=== PATIENT | male | born 1950 | race Caucasian/White ===

== ENCOUNTER 2020-10-09 01:32 | Emergency (ER) | payer OTHER, MEDICARE, SELFPAY ==
[2020-10-09] VITALS (9 sets, daily range): BP systolic 117–136; BP diastolic 67–86; PULSE 34–73; RESP 7–16; TEMP 36.4–36.8; O2SAT 96–99; BMI 26.5
--- NOTE | ~2020-10-09 | XR_ITS ---
EXAMINATION: XR SHOULDER, RIGHT CLINICAL INFORMATION: Pain status post fall COMPARISON: None TECHNIQUE: Three views of the right shoulder. FINDINGS: There is anterior dislocation of the right humeral head from the glenoid. No acute fracture. The acromioclavicular joint is intact with mild hypertrophic degenerative change. The visualized lungs are clear. Visualized ribs are intact. XR/XR shoulder RT min 2V IMPRESSION: Anterior shoulder dislocation.
--- NOTE | ~2020-10-09 | XR_ITS ---
EXAMINATION: XR SHOULDER, RIGHT CLINICAL INFORMATION: Post reduction COMPARISON: 10/09/2020 TECHNIQUE: Two views of the right shoulder. FINDINGS: There appears to at least still be anterior subluxation of the right humeral head in relation to the glenoid. No fracture seen. The right acromioclavicular joint is aligned appropriately. The visualized lung is clear. XR/XR shoulder RT min 2V IMPRESSION: There appears to be residual anterior subluxation of the humeral head in relation to the glenoid. No fracture.
--- NOTE | 2020-10-09 04:37 | ECG_ITS ---
Test Reason : SEDATION Blood Pressure : / mmHG Vent. Rate : 078 BPM Atrial Rate : 078 BPM P-R Int : 142 ms QRS Dur : 096 ms QT Int : 402 ms P-R-T Axes : 040 -17 027 degrees QTc Int : 458 ms Normal sinus rhythm Normal ECG No previous ECGs available Referred By: Emilie Dai Electronically Signed By:ROXANNE PARIS MD
--- NOTE | 2020-10-09 04:38 | ED_ITS ---
HPI - Fall General Chief Complaint: Fall Stated Complaint: Fall/Shoulder pain Time Seen by Provider: 10/09/20 01:47 Source: patient Mode of arrival: ambulatory Limitations: no limitations History of Present Illness HPI Narrative: Patient comes emergency room complaining of right shoulder pain. Patient states that earlier this evening, patient tripped and fell, landed on his shoulder. Patient denies hitting his head, did not lose consciousness, patient is not on blood thinners. Patient states that other than the right shoulder, he has no other pain. Related Data Previous Rx's Medication Instructions Recorded ibuprofen 600 mg PO Q8H PRN #14 tab 10/09/20 Allergies Allergy/AdvReac Type Severity Reaction Status Date / Time Unable to Assess Allergy Unverified 10/09/20 01:47 [facility] Past Medical History Medical History (Updated 10/09/20 @ 08:19 by Migel Vogt) High cholesterol Hypertension Surgical History (Updated 10/09/20 @ 01:38 by Caroline Koehler) Knee joint replacement status Social History Social History Advance Directives: No Advance Directives Information Provided: No Physical Exam Vital Signs: Vital Signs: Last Vital Signs Temp 98.1 F 10/09/20 06:40 Pulse 34 L 10/09/20 06:40 Resp 7 L 10/09/20 06:40 BP 136/74 10/09/20 06:40 Pulse Ox 98 10/09/20 02:45 Oxygen Flow Rate 98 10/09/20 06:40 Body Mass Index 26.5 Course Course Course Narrative: Patient consented to conscious sedation and right shoulder reduction. For preprocedural labs, it was noted that his sodium is 125. Patient is asymptomatic. Patient is on hydrochlorothiazide. I discussed the patient with our hospitalist, at this time we will go ahead and admit him, patient is getting fluids at this time. I discussed with the hospitalist that on x-rays, patient seems to have residual anterior subluxation of the humeral head. They will go ahead and consult Orthop edics. Patient is now fully awake. Patient states that he is asymptomatic, no shoulder pain. Patient states that he will follow up with his primary care physician in a hole or the hyponatremia. Patient does not want to stay for further evaluation and treatment. I discussed with the patient he has residual subluxation of the humeral head, he will need close follow-up with Orthopedics. [facility] - Fall Lab Data Result diagrams: 10/09/20 04:53 10/09/20 04:53 Labs: Lab Results 10/09/20 10/09/20 10/09/20 Range/Units 04:53 04:53 04:53 WBC 9.8 (4.8-10.8) X10*3/uL RBC 4.25 L (4.60-5.80) X10*6/uL Hgb 12.8 L (14.0-18.0) g/dl Hct 36.3 L (42-52) % MCV 85.4 (80-98) fL MCH 30.1 (27.0-33.0) pg MCHC 35.3 (31.0-36.0) g/dl RDW 12.7 (11.0-16.0) % Plt Count 171 (160-400) X10*3/uL MPV 8.7 L (9.4-12.4) fL Immature Gran % (Auto) 0.5 H (0.0-0.4) % Neut % (Auto) 74.3 H (45-73) % Lymph % (Auto) 15.0 L (20-40) % Elbert % (Auto) 8.3 (2-11) % Eos % (Auto) 1.5 (0-4) % Baso % (Auto) 0.4 (0-2) % Lymph # (Auto) 1.5 (1.2-4.9) X10*3/uL [place] # (Auto) 0.8 (0.1-1.2) X10*3/uL Eos # (Auto) 0.2 (0.0-0.4) X10*3/uL Baso # (Auto) 0.0 (0.0-0.2) X10*3/uL Abs Immat Gran (auto) 0.05 H (0.00-0.03) X10*3/uL Absolute Neuts (auto) 7.3 (2.0-8.3) X10*3/uL Absolute Nucleated RBC 0.000 (0.0-0.012) X10*3/uL Nucleated RBC % (auto) 0.0 (0.0-0.2) /100WBC Hold Purple Top SEE NOTE Hold Blue Top SEE NOTE Sodium (135-145) mmol/L Potassium (3.3-5.1) mmol/L Chloride (96-108) mmol/L Carbon Dioxide (22-29) mmol/L Anion Gap (12-20) BUN (9-16) mg/dL Creatinine (0.5-1.4) mg/dL Estim Creat Clear Calc Estimated GFR Random Glucose (60-115) mg/dL Calcium (8.4-10.2) mg/dL Total Bilirubin (0.0-1.0) mg/dL AST (5-37) U/L ALT (0-40) U/L Alkaline Phosphatase (39-117) U/L Total Protein (6.5-8.0) g/dL Albumin (3.5-5.0) g/dL 10/09/20 10/09/20 10/09/20 Range/Units 04:53 04:53 04:53 WBC Cancelled (4.8-10.8) X10*3/uL RBC Cancelled (4.60-5.80) X10*6/uL Hgb Cancelled (14.0-18.0) g/dl Hct Cancelled (42-52) % MCV Cancelled (80-98) fL MCH Cancelled (27.0-33.0) pg MCHC Cancelled (31.0-36.0) g/dl RDW Cancelled (11.0-16.0) % Plt Count Cancelled (160-400) X10*3/uL MPV Cancelled (9.4-12.4) fL Immature Gran % (Auto) Cancelled (0.0-0.4) % Neut % (Auto) Cancelled (45-73) % Lymph % (Auto) Cancelled (20-40) % [place]bert % (Auto) Cancelled (2-11) % Eos % (Auto) Cancelled (0-4) % Baso % (Auto) Cancelled (0-2) % Lymph # (Auto) Cancelled (1.2-4.9) X10*3/uL [place] # (Auto) Cancelled (0.1-1.2) X10*3/uL Eos # (Auto) Cancelled (0.0-0.4) X10*3/uL Baso # (Auto) Cancelled (0.0-0.2) X10*3/uL Abs Immat Gran (auto) Cancelled (0.00-0.03) X10*3/uL Absolute Neuts (auto) Cancelled (2.0-8.3) X10*3/uL Absolute Nucleated RBC Cancelled (0.0-0.012) X10*3/uL Nucleated RBC % (auto) Cancelled (0.0-0.2) /100WBC Hold Purple Top Hold Blue Top Sodium 125 L Cancelled (135-145) mmol/L Potassium 3.8 Cancelled (3.3-5.1) mmol/L Chloride 87 L Cancelled (96-108) mmol/L Carbon Dioxide 24 Cancelled (22-29) mmol/L Anion Gap 18 Cancelled (12-20) BUN 10 Cancelled (9-16) mg/dL Creatinine 0.82 Cancelled (0.5-1.4) mg/dL Estim Creat Clear Calc 85.3 Cancelled Estimated GFR > 60 Cancelled Random Glucose 103 Cancelled (60-115) mg/dL Calcium 8.9 Cancelled (8.4-10.2) mg/dL Total Bilirubin 0.5 (0.0-1.0) mg/dL AST 42 H (5-37) U/L ALT 26 (0-40) U/L Alkaline Phosphatase 55 (39-117) U/L Total Protein 7.0 (6.5-8.0) g/dL Albumin 4.5 (3.5-5.0) g/dL Imaging Data Right shoulder x-ray: Radiologist's impression: There is anterior dislocation of the right humeral head from the glenoid. No acute fracture. The acromioclavicular joint is intact with mild hypertrophic degenerative change. The visualized lungs are clear. Visualized ribs are intact. XR/XR shoulder RT min 2V IMPRESSION: Anterior shoulder dislocation. Post reduction x-ray: Radiologist's impression: There appears to at least still be anterior subluxation of the right humeral head in relation to the glenoid. No fracture seen. The right acromioclavicular joint is aligned appropriately. The visualized lung is clear. XR/XR shoulder RT min 2V IMPRESSION: There appears to be residual anterior subluxation of the humeral head in relation to the glenoid. No fracture. ECG Data Attestation: I personally reviewed and interpreted this ECG as follows: (Heart rate 78, no ST segment depression or elevation, no T-wave inversion, QTC 458, sinus rhythm) Discharge Plan Discharge Clinical Impression: Acute hyponatremia Anterior dislocation of right shoulder Qualifiers: Encounter type: initial encounter Qualified Code(s): S43.014A - Anterior dislocation of right humerus, initial encounter Patient Disposition: Left Against Medical Advice Instructions: Shoulder Dislocation (ED), Hyponatremia (ED) Additional Instructions: You are leaving against medical advice. You have residual subluxation of your right shoulder. Please call Orthopedics to schedule an appointment. If you have any pain or any further symptoms, please return to the emergency room. Also, your sodium is low. Please have close follow-up with her primary care physician. Prescriptions: New ibuprofen 600 mg tablet 600 mg PO Q8H PRN (Reason: pain) Qty: 14 RF: 0 Referrals: Kevyn Gaming MD [Physician] - 2 days Interventions: ED Discharge Assessment Last Done: 10/09/20 08:18
[2020-10-09 04:58] LABS: MANUAL DIFF FLAG NO
[2020-10-09] MEDS: Acetaminophen 325 MG TABLET 975 MG PO (04:58)
[2020-10-09 05:00] LABS: Basophils Percent Auto 0.4 % (0-2); Eosinophils Absolute Auto 0.2 X10*3/uL (0.0-0.4); Eosinophils Percent Auto 1.5 % (0-4); Hematocrit 36.3 % (42-52); Hemoglobin 12.8 g/dl (14.0-18.0); Imm Gran Abs Auto 0.05 X10*3/uL (0.00-0.03); Imm Gran Pct Auto 0.5 % (0.0-0.4); Lymphocytes Absolute Auto 1.5 X10*3/uL (1.2-4.9); Mean Corpuscular HGB Conc 35.3 g/dl (31.0-36.0); Mean Corpuscular Hemoglobin 30.1 pg (27.0-33.0); Mean Corpuscular Volume 85.4 fL (80-98); Mean Platelet Volume 8.7 fL (9.4-12.4); Monocytes Absolute Auto 0.8 X10*3/uL (0.1-1.2); Monocytes Percent Auto 8.3 % (2-11); Neutrophils Absolute Auto 7.3 X10*3/uL (2.0-8.3); Neutrophils Percent Auto 74.3 % (45-73); Platelet Count 171 X10*3/uL (160-400); Red Blood Count 4.25 X10*6/uL (4.60-5.80); Red Cell Distribution Width 12.7 % (11.0-16.0); White Blood Count 9.8 X10*3/uL (4.8-10.8)
[2020-10-09] MEDS: Etomidate 20 MG/10 ML VIAL IVPUSH (05:06)
[2020-10-09 05:39] LABS: Alanine Aminotransferase 26 U/L (0-40); Albumin Level 4.5 g/dL (3.5-5.0); Alkaline Phosphatase 55 U/L (39-117); Anion Gap 18 (12-20); Aspartate Amino Transferase 42 U/L (5-37); Bilirubin Total 0.5 mg/dL (0.0-1.0); Blood Urea Nitrogen 10 mg/dL (9-16); Calcium 8.9 mg/dL (8.4-10.2); Carbon Dioxide 24 mmol/L (22-29); Chloride 87 mmol/L (96-108); Creatinine Clr Calc Pharmacy 85.3; Estimated Glomerular Filt Rate > 60; Glucose Random 103 mg/dL (60-115); Potassium 3.8 mmol/L (3.3-5.1); Sodium 125 mmol/L (135-145)
[2020-10-09] MEDS: Morphine Sulfate 2 MG/ML CARTRIDGE IVPUSH (06:25)
[2020-10-09] MEDS: 0.9 % Sodium Chloride 1,000 ML 999 ML IVCONT (06:35)
--- NOTE | 2020-10-09 06:37 | PC.NURSE ---
pT A&o, NO SOB OR CHEST PAIN. TOLERATED SEDATION WELL WITH NO COMPLICATIONS. RIGHT ARM IN SLING. pT SODIUM IN LOW, PLAN IS FOR PATIENT TO BE ADMITTED. PT WOULD LIKE TO FOLLOW WITH PCP. PROVIDER IS AWARE.
== END 2020-10-13 07:58 | disposition left against medical advice (07) ==
PROVIDERS: Emergency Provider Emergency Medicine; PCP Internal Medicine
DX: S43.014A Anterior dislocation of right humerus, initial encounter (principal); E87.1 Hypo-osmolality and hyponatremia; M79.601 Pain in right arm; Y93.9 Activity, unspecified; W01.0XXA Fall on same level from slipping, tripping and stumbling without subsequent striking against object, initial encounter; Y92.9 Unspecified place or not applicable; Y99.9 Unspecified external cause status; I10 Essential (primary) hypertension; Z20.822 Contact with and (suspected) exposure to COVID-19; Z79.899 Other long term (current) drug therapy
CPT/HCPCS: 73030; 80053; 85025; 93005; 96365; 96375; 99284; J2270

== ENCOUNTER 2020-10-21 12:34 | Outpatient (REF) | payer MEDICARE, SELFPAY ==
--- NOTE | ~2020-10-21 | XR_ITS ---
EXAMINATION: XR SHOULDER, RIGHT CLINICAL INFORMATION: History of recent shoulder dislocation post reduction COMPARISON: Previous x-ray 10/09/2020 TECHNIQUE: 3 views of the right shoulder. FINDINGS: The right humeral head may be slightly subluxed anteriorly with respect to the glenoid. Bone alignment is otherwise normal. No fracture or dislocation is seen. There is mild arthritis at the acromioclavicular joint. Soft tissues are unremarkable. XR/XR shoulder RT min 2V IMPRESSION: Mild anterior subluxation of the humeral head with respect to the glenoid. No fracture seen.
== END 2020-10-21 12:35 | disposition home or self-care (01) ==
LOC: HO.HOSX 12:34
PROVIDERS: Visit Provider Physician Assistant
DX: S43.001D Unspecified subluxation of right shoulder joint, subsequent encounter (principal)
CPT/HCPCS: 73030; 99202

== ENCOUNTER 2020-12-24 07:00 | Outpatient (RCR) | payer MEDICARE, SELFPAY ==
--- NOTE | 2020-11-17 08:53 | MHC.PT.EP ---
[facility] [place] Office [place] Office [place] Office [address] Ariana Hanley 140 [facility] [phone] F: [phone] F: [phone] F: [phone] F: [phone] Physical Therapy Plan of Care Date of Evaluation: Date of Surgery: none Diagnosis: unspecified dislocation of the right shoulder. Assessment: The patient arrived reporting right shoulder anterior dislocation on . As expected he had significantly decreased right shoulder ROM, strength as well as some minimal weakness of forearm and wrist likely due to disuse. The patient is a good candidate to restore functional reaching ability, and functional independence to return to PLOF. Frequency and Duration: The patient will be seen 2x/week x 4 weeks Short Term Goals: 1. Pt to be able to use his arm for getting dressed without pain limitation. 2. Pt to demonstrate understanding of HEP to improve compliance and carryover Fpc Goals: 1. Pt to be able to return to all functional reaching ability to return to PLOF. 2. Pt to have restored functional strength in his UE. Treatment Plan: Modalities to reduce pain, spasms and effusion. Manual therapy to restore motion and function. Therapeutic exercise to improve strength and flexibility. Neuromuscular re-education for posture and balance. Therapeutic activities to return to functional activities of daily living. Electronically signed by: Rhea Carl PT DPT Please sign and return to therapist. Thank you for your referral.
== END 2020-12-29 08:00 | disposition home or self-care (01) ==
LOC: HO.PT 07:00
PROVIDERS: PCP Internal Medicine; Visit Provider Physician Assistant
DX: S43.001A Unspecified subluxation of right shoulder joint, initial encounter (principal); S43.004A Unspecified dislocation of right shoulder joint, initial encounter; M25.511 Pain in right shoulder
CPT/HCPCS: 97110; 97112; 97162

== ENCOUNTER → 2021-02-11 09:19 | Outpatient (BNVA) | payer SELFPAY | PROVIDERS: PCP Internal Medicine; Visit Provider Internal Medicine | DX: Z02.79 Encounter for issue of other medical certificate (principal) ==

== ENCOUNTER 2021-05-31 10:28 | Outpatient (REF) | payer MEDICARE, SELFPAY ==
[2021-05-31 16:10] LABS: COVID-19 Test Negative (Negative)
== END 2021-05-31 10:29 | disposition home or self-care (01) ==
LOC: HO.LAB 10:28
PROVIDERS: Visit Provider Internal Medicine
DX: Z20.822 Contact with and (suspected) exposure to COVID-19 (principal)
CPT/HCPCS: 36415; 87635; C9803

== ENCOUNTER → 2022-02-02 09:01 | Outpatient (BNVA) | payer SELFPAY | PROVIDERS: PCP Internal Medicine; Visit Provider Internal Medicine | DX: Z02.79 Encounter for issue of other medical certificate (principal) ==

== ENCOUNTER 2022-10-09 00:33 | Emergency (ER) | payer MEDICARE, SELFPAY ==
--- NOTE | ~2022-10-09 | CT_ITS ---
EXAMINATION: CT ABDOMEN AND PELVIS WITHOUT CONTRAST CLINICAL INFORMATION: Left flank/lumbar pain. Atraumatic. COMPARISON: None available. TECHNIQUE: Multidetector volumetric imaging was performed from the superior aspect of the liver through the pubic symphysis. Sagittal and coronal reformatted images were obtained on the technologist's workstation. This CT examination was performed using dose optimization techniques as appropriate, variously including the following: *Automated exposure control *Adjustment of mA and/or kV according to patient size (this includes techniques or standardized protocols for targeted exams where dose is matched to indication/reason for exam; i.e. extremities or head) *Use of iterative reconstruction technique DLP: 515 mGy-cm FINDINGS: LUNG BASES: The lung bases are clear. Coronary artery calcifications. LIVER, GALLBLADDER, AND BILIARY TREE: The liver is normal in size, shape, and attenuation. No focal hepatic lesion or biliary ductal dilatation is present. The gallbladder is contracted with no evidence of radiopaque gallstones, gallbladder wall thickening, or obvious pericholecystic inflammatory changes. PANCREAS: Unremarkable. SPLEEN: Unremarkable. ADRENAL GLANDS: Unremarkable. KIDNEYS AND URETERS: The kidneys are normal in size, shape, and attenuation. No hydronephrosis, hydroureter, or calculi seen. Symmetric perinephric stranding. BLADDER: Normally distended without wall thickening along the apex. No focal mass identified. GASTROINTESTINAL TRACT: Distended stomach without wall thickening. Normal caliber small bowel. No obstruction. Colonic diverticulosis is present. No diverticulitis. Normal appendix. ABDOMINAL WALL: Fat-containing umbilical hernia. LYMPH NODES: Normal. VASCULAR: Normal caliber aorta with moderate atherosclerotic calcification. PELVIC VISCERA: The prostate and seminal vesicles are unremarkable. OSSEOUS STRUCTURES: No acute or suspicious osseous abnormality. Degenerative changes throughout the spine. CT/CT abdomen pelvis wo IV con IMPRESSION: No acute findings in the abdomen or pelvis. No hydronephrosis or nephrolithiasis. No inflammatory changes. Fleischner guidelines were followed.
--- NOTE | ~2022-10-09 | XR_ITS ---
EXAMINATION: XR CHEST CLINICAL INFORMATION: Back pain COMPARISON: None available. TECHNIQUE: 2 views of the chest were obtained. FINDINGS: The lungs are well expanded. There is no focal consolidation, edema, or effusion. No pneumothorax. The cardiomediastinal silhouette is within normal limits of size with a calcified aorta. No acute osseous abnormality. XR/XR chest 2V IMPRESSION: Clear lungs.
[2022-10-09 00:39] VITALS: BP 167/77; PULSE 92; O2SAT 99
[2022-10-09 00:40] VITALS: BP 137/79; PULSE 89; RESP 20; TEMP 36.8; O2SAT 96; BMI 26.5
[2022-10-09 00:59] VITALS: BP 127/74; PULSE 81; RESP 18; TEMP 36.8; O2SAT 98
[2022-10-09 01:02] LABS: Basophils Absolute Auto 0.1 X10*3/uL (0.0-0.2); Basophils Percent Auto 0.6 % (0-2); Eosinophils Percent Auto 5.6 % (0-4); Hematocrit 35.8 % (42.0-52.0); Hemoglobin 12.6 g/dl (14.0-18.0); Imm Gran Abs Auto 0.13 X10*3/uL (0.00-0.03); Imm Gran Pct Auto 0.8 % (0.0-0.4); Lymphocytes Absolute Auto 2.1 X10*3/uL (1.2-4.9); Lymphocytes Percent Auto 12.6 % (20-40); MANUAL DIFF FLAG NO; Mean Corpuscular HGB Conc 35.2 g/dl (31.0-36.0); Mean Corpuscular Hemoglobin 30.2 pg (27.0-33.0); Mean Corpuscular Volume 85.9 fL (80.0-98.0); Mean Platelet Volume 8.9 fL (9.4-12.4); Monocytes Absolute Auto 1.1 X10*3/uL (0.1-1.2); Monocytes Percent Auto 6.4 % (2-11); Neutrophils Absolute Auto 12.5 x10*3/uL (2.0-8.3); Platelet Count 231 X10*3/uL (160-400); Red Blood Count 4.17 X10*6/uL (4.60-5.80); Red Cell Distribution Width 12.7 % (11.0-16.0); White Blood Count 16.9 X10*3/uL (4.8-10.8)
--- NOTE | 2022-10-09 01:14 | ED.BACK ---
HPI - Back Pain/Injury General Chief Complaint: Back Pain/Injury Stated Complaint: back pain Time Seen by Provider: 10/09/22 01:12 Source: patient Mode of arrival: ambulatory Limitations: no limitations History of Present Illness HPI Narrative: Patient alcoholic with no back problems or pancreatitis or kidney stone about 12 hours ago during noontime while watching patient noticed sudden onset of pain in upper lumbar area radiation to the both sides no trauma no injury no urinary complaint no history of kidney stone no abdominal pain no fever or chills Related Data Home Medications Medication Instructions Recorded Confirmed amlodipine 2.5 mg tablet 10 mg PO DAILY 10/21/20 10/09/22 isosorbide mononitrate 10 mg tablet 10 mg PO BID 10/21/20 prednisolone 5 mg tablet 10 mg PO DAILY 10/21/20 atorvastatin 40 mg tablet 40 mg PO DAILY 06/03/22 10/09/22 omeprazole 20 mg capsule,delayed 20 mg PO DAILY 06/03/22 10/09/22 release bisoprolol 10 1 tab PO DAILY 06/20/22 10/09/22 mg-hydrochlorothiazide 6.25 mg tablet terbinafine HCl 250 mg PO DAILY 10/09/22 10/09/22 Previous Rx's Medication Instructions Recorded ibuprofen 600 mg tablet 600 mg PO Q8H PRN pain #14 tabs 10/09/20 prednisone 20 mg tablet 60 mg PO DAILY #9 tabs 06/03/22 triamcinolone acetonide 0.025 % 1 appl topical BID #15 grams 06/20/22 topical cream Allergies Allergy/AdvReac Type Severity Reaction Status Date / Time Penicillins AdvReac swollen Verified 06/20/22 14:40 Review of Systems Review of Systems: Yes all other systems are reviewed and are negative PMFSH Past Medical History Medical History High cholesterol Hypertension Surgical History Knee joint replacement status Social History Social History Alcohol intake: current Alcohol intake frequency: 3 or more drinks per day Alcohol type: beer Smoked in Last 30 Days: No Use of substances other than those prescribed or required for medical reasons: No Advance Directives: No Advance Directives Information Provided: No 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 Oriented X3. No acute distress. Eyes: PERRLA, No Nystagmus ENT: Pharynx normal. Oral Mucosa moist Neck: Normal inspection. Neck supple. CVS: Normal heart rate and rhythm. Pulses normal. Respiratory: No respiratory distress. Equal air entry bilateral, no wheezing/rales/rhonchi Abdomen: Soft and nontender. Bowel sounds are present, no mass palpable, diffuse tenderness L1-L2 area Skin: Skin warm and dry. Normal skin color. Normal skin turgor. Extremities: No lower extremity edema. No calf tenderness Neuro: Oriented X 3. No motor deficit. No sensory deficit.No cerebellar signs , cranial nerves II-XII intact Medications Administered Discontinued Medications Generic Name Dose Route Start Last Admin Trade Name Freq PRN Reason Stop Dose Admin Sodium Chloride 1,000 mls @ 999 mls/hr 10/09/22 01:18 10/09/22 01:34 Ns IV 10/09/22 02:18 999 mls/hr .Q1H1M ONE Administration Morphine Sulfate 4 mg 10/09/22 01:18 10/09/22 01:34 Morphine Sulfate 4 Mg/Ml Cartridge IVPUSH 10/09/22 01:19 4 mg ONCE ONE Administration Protocol Ondansetron HCl 4 mg 10/09/22 01:18 10/09/22 01:34 Ondansetron Hcl 4 Mg/2 Ml Vial IVPUSH 10/09/22 01:19 4 mg ONCE ONE Administration Medical Decision Making Medical Decision Making [facility] Narrative: Patient with psoriasis with low back CT scan negative for any compression fracture acute abdominal labs are stable likely has musculoskeletal pain patient feeling better after morphine will ambulate the patient Lab Data [facility] Lab Attestation statement: I reviewed the patient's lab results. 10/09/22 00:51 10/09/22 00:51 Labs: Lab Results 10/09/22 10/09/22 10/09/22 Range/Units 00:51 00:51 01:47 WBC 16.9 H (4.8-10.8) X10*3/uL RBC 4.17 L (4.60-5.80) X10*6/uL Hgb 12.6 L (14.0-18.0) g/dl Hct 35.8 L (42.0-52.0) % MCV 85.9 (80.0-98.0) fL MCH 30.2 (27.0-33.0) pg MCHC 35.2 (31.0-36.0) g/dl RDW 12.7 (11.0-16.0) % Plt Count 231 (160-400) X10*3/uL MPV 8.9 L (9.4-12.4) fL Immature Gran % (Auto) 0.8 H (0.0-0.4) % Neut % (Auto) 74.0 H (45-73) % Lymph % (Auto) 12.6 L (20-40) % [place] % (Auto) 6.4 (2-11) % Eos % (Auto) 5.6 H (0-4) % Baso % (Auto) 0.6 (0-2) % Lymph # (Auto) 2.1 (1.2-4.9) X10*3/uL [place] # (Auto) 1.1 (0.1-1.2) X10*3/uL Eos # (Auto) 1.0 H (0.0-0.4) X10*3/uL Baso # (Auto) 0.1 (0.0-0.2) X10*3/uL Abs Immat Gran (auto) 0.13 H (0.00-0.03) X10*3/uL Absolute Neuts (auto) 12.5 H (2.0-8.3) x10*3/uL Absolute Nucleated RBC 0.000 (0.0-0.012) X10*3/uL Nucleated RBC % (auto) 0.0 (0.0-0.2) /100WBC Sodium 131 L (135-145) mmol/L Potassium 4.0 (3.3-5.1) mmol/L Chloride 94 L (96-108) mmol/L Carbon Dioxide 26 (22-29) mmol/L Anion Gap 15 (12-20) BUN 13 (9-16) mg/dL Creatinine 0.84 (0.5-1.4) mg/dL Estim Creat Clear Calc 80.8 Estimated GFR > 60 Random Glucose 101 (60-115) mg/dL Calcium 9.2 (8.4-10.2) mg/dL Total Bilirubin 0.3 (0.0-1.0) mg/dL AST 26 (5-37) U/L ALT 20 (0-40) U/L Alkaline Phosphatase 95 (39-117) U/L Total Protein 7.1 (6.5-8.0) g/dL Albumin 3.9 (3.5-5.0) g/dL Lipase 37 (8-78) U/L Urine Color Yellow Urine Appearance Clear Urine pH 6.5 (5.0-9.0) Ur Specific [place] 1.015 (1.005-1.025) Urine Protein Negative (Neg-Trace) mg/dL Urine Glucose (UA) Negative (Negative) mg/dL Urine Ketones Trace (Negative) mg/dL Urine Blood Negative (Negative) Urine Nitrite Negative (Negative) Ur Leukocyte Esterase Negative (Negative) Radiology Impression Discussion of test interpretation with radiology: I have reviewed the radiologist's reading. Radiologist Impression: CT/CT abdomen pelvis wo IV con IMPRESSION: No acute findings in the abdomen or pelvis. No hydronephrosis or nephrolithiasis. No inflammatory changes. ? Fleischner guidelines were followed. Discharge Plan Discharge Clinical Impression: Strain of lumbar region Prescriptions: No Action ibuprofen 600 mg tablet 600 mg PO Q8H PRN (Reason: pain) Qty: 14 0RF terbinafine HCl 250 mg PO DAILY omeprazole 20 mg capsule,delayed release(DR/EC) 20 mg PO DAILY atorvastatin 40 mg tablet 40 mg PO DAILY prednisone 20 mg tablet 60 mg PO DAILY Qty: 9 0RF bisoprolol-hydrochlorothiazide 10-6.25 mg tablet 1 tab PO DAILY triamcinolone acetonide 0.025 % cream 1 appl topical BID Qty: 15 1RF amlodipine 2.5 mg tablet 10 mg PO DAILY prednisolone 5 mg tablet 10 mg PO DAILY isosorbide mononitrate 10 mg tablet 10 mg PO BID Rx Instructions: give doses 7 hrs apart
[2022-10-09 01:15] LABS: Alanine Aminotransferase 20 U/L (0-40); Albumin Level 3.9 g/dL (3.5-5.0); Alkaline Phosphatase 95 U/L (39-117); Anion Gap 15 (12-20); Aspartate Amino Transferase 26 U/L (5-37); Bilirubin Total 0.3 mg/dL (0.0-1.0); Blood Urea Nitrogen 13 mg/dL (9-16); Calcium 9.2 mg/dL (8.4-10.2); Carbon Dioxide 26 mmol/L (22-29); Chloride 94 mmol/L (96-108); Creatinine Clr Calc Pharmacy 80.8; Estimated Glomerular Filt Rate > 60; Glucose Random 101 mg/dL (60-115); Sodium 131 mmol/L (135-145); Total Protein 7.1 g/dL (6.5-8.0)
[2022-10-09 01:31] LABS: Lipase 37 U/L (8-78)
[2022-10-09] MEDS: 0.9 % Sodium Chloride 1,000 ML 999 ML IV (01:34)
[2022-10-09] MEDS: Morphine Sulfate 4 MG/ML CARTRIDGE IVPUSH (01:34)
[2022-10-09] MEDS: ondansetron HCL 4 MG/2 ML VIAL IVPUSH (01:34)
[2022-10-09 01:54] LABS: Appearance Urine Clear; Color Urine Yellow; Glucose Urine UA Negative (Negative); Leukocyte Esterase Urine Negative (Negative); Nitrite Urine Negative (Negative); PH 6.5 (5.0-9.0); Specific Gravity - Urine 1.015 (1.005-1.025); Urine Blood Negative (Negative); Urine Ketones Trace mg/dL (Negative); Urine Protein Negative (Neg-Trace)
[2022-10-09] MEDS: Ketorolac Tromethamine 30 MG/ML VIAL IVPUSH (02:40)
--- NOTE | 2022-10-09 03:00 | PC.NURSE ---
Patient alert and oriented X3. at bedside. Reports sudden onset of back pain while watching tv. No recent trauma or injury. Patient reports pain is 10/10. Medication administered as per MAR
[2022-10-09] MEDS: dexAMETHasone sod phosphate 10 MG/ML VIAL IVPUSH (03:28)
[2022-10-09 04:11] VITALS: BP 140/71; PULSE 91; RESP 17; TEMP 36.8; O2SAT 95
[2022-10-09 04:28] LABS: Magnesium 1.3 mg/dL (1.6-2.6)
[2022-10-09] MEDS: Magnesium Sulfate/H2O 2 GM/50 ML PIGGYBACK IV (04:36)
[2022-10-09 06:17] VITALS: BP 112/73; PULSE 88; RESP 17; TEMP 36.8; O2SAT 95
== END 2022-10-09 06:54 | disposition home or self-care (01) ==
PROVIDERS: Emergency Provider Internal Medicine; PCP Internal Medicine
DX: M54.50 Low back pain, unspecified (principal); R07.89 Other chest pain; R10.9 Unspecified abdominal pain; Z79.899 Other long term (current) drug therapy
CPT/HCPCS: 36415; 71046; 74176; 80053; 81003; 83690; 83735; 85025; 96361; 96365; 96375; 99284; 99285; J1100; J1885; J2270; J2405; J3475

== ENCOUNTER 2023-05-24 08:50 | Outpatient (AMB) | payer MEDICARE, SELFPAY ==
--- NOTE | 2023-05-24 09:01 | A.SPINEOV_ITS ---
Intake Intake Visit Reasons: low back pain Intake Note: Mr. Scott is here today c/o low back pain. MRI done @ [facility]/brought disc. 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 He reports that he awoke the morning of October 09 with significant middle and low back pain and called ambulance to bring him to the emergency department here at [facility]. He had a CT scan of the abdomen and pelvis completed which was generally unremarkable at the time. 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 He reports being on antibiotics for an extended period of time, and Infectious Disease at [facility] told him that in March that he is cleared from his osteomyelitis infection. He now follows up with them once per month for blood work/follow-up. He reports that his mid-back pain has largely resolved since his infection cleared, but he continues to suffer from daily pain in his low back. When describing his low-back pain he points near the waistline and runs both his hands across the lateral sides of his low back. He reports no radiation of symptoms. He reports no numbness/tingling/weakness. He does report increase of pain in his low back with spine extension and feels that leaning over and holding on to something helps alleviate his symptoms. He endorses significant difficulty ambulating for extended periods of time, and reports that he has stopped going to the grocery store/retail stores altogether. He needs to sit down and rest after walking for prolonged periods of time in order to continue. He states he takes 1 oxycodone per night before bed to help tolerate the pain. He also takes Motrin daily for the pain. He attempted physical therapy and technical healthcare consultant recently, and states that these both only exacerbated his pain and made him feel worse. PMH: High blood pressure, hyperlipidemia, GERD, low back pain, plaque psoriasis, Hx osteomyelitis. Social hx: Patient does not smoke, reports drinking 3-4 beers per day. Medications: Oxycodone, Motrin, amlodipine, atorvastatin, HCTZ, omeprazole. He also reports getting infusions for plaque psoriasis monthly but is unsure what the medication is. Allergies: Penicillin. Physical exam: The patient has 5/5 strength in his upper and lower extremities. He has a notable lump midway down the thoracic spine which is non-tender to palpation. He elicits no pain to direct palpation of the rest of his spine. Sensation is grossly intact. Reflexes are diminished (1+) in his bilateral upper and lower extremities. He does have 1 beat of notable clonus bilaterally. No Sydnie's. Imaging review: MRI of the thoracic spine completed in March of this year shows significant collapse of the vertebral body of T9 with hyperintensity on STIR segment at T9/T10. Radiologist read reports that this is stable/similar to previous imaging. When compared to CT scan from the emergency department in October it seems as though there has been significant collapse of the T9 vertebral body which can just barely be seen at the top of the CT abdomen / pelvis. Impression: Luis Angel is a pleasant 73-year-old male who comes in today as a self- referral for evaluation of low back pain since October of this year. He reports that he also had mid-back pain in October which has since resolved after treatment in clearance from osteomyelitis. He continues to be followed by [facility] for osteomyelitis who test his blood work monthly. He reports no constitutional symptoms including no fever, night sweats, shaking, chills, or significant pain to the extent that he felt back in October when he had osteomyelitis. The pain he describes today sounds more like a chronic / steady pain that he deals with on a daily basis. His history / physical and story are most consistent with spinal stenosis of the lumbar spine. He has tried physical therapy and technical healthcare consultant which only exacerbated his low back pain. I would like to see if there is an area that could be a target for either cortisone injections or lumbar decompression. Additionally, although I have very low suspicion at this time, it would be good to have MRI imaging of his lumbar spine to rule out any other pathologies given his recent history. We will order him an MRI to evaluate for both of these, and will follow up with him after. The total time spent with this visit with this patient was 45 minutes reviewing history, physical exam, MRI imaging review, and implementation of treatment plan or further diagnostic testing. Collin Johnson MD,PhD [facility] Orders: Orders MR lumbar spine wo con Today M54.50 - Low back pain, unspecified Coding Level of Care Code New Pt Level 4 (36397) Diagnoses Lumbago M54.50
== END 2023-05-24 10:57 | disposition home or self-care (01) ==
PROVIDERS: PCP Internal Medicine; Visit Provider Physician Assistant
DX: M54.50 Low back pain, unspecified (principal)
CPT/HCPCS: 99204

== ENCOUNTER → 2023-05-24 08:50 | Outpatient (BNVA) | payer MEDICARE, SELFPAY | PROVIDERS: PCP Internal Medicine; Visit Provider Physician Assistant | DX: M54.50 Low back pain, unspecified (principal) | CPT/HCPCS: 99202 ==

== ENCOUNTER 2023-05-28 12:14 | Emergency (ER) | payer MEDICARE, SELFPAY ==
--- NOTE | ~2023-05-28 | CT_ITS ---
EXAMINATION: CT ABDOMEN AND PELVIS WITH CONTRAST CLINICAL INFORMATION: Left-sided 10th rib fracture COMPARISON: None available. TECHNIQUE: Multidetector volumetric images were obtained from the superior aspect of the liver through the pubic symphysis following administration 85 mL of Omnipaque 350 intravenous contrast. Sagittal and coronal reformatted images were obtained on the technologist's workstation. Oral contrast: No This CT examination was performed using dose optimization techniques as appropriate, variously including the following: *Automated exposure control *Adjustment of mA and/or kV according to patient size (this includes techniques or standardized protocols for targeted exams where dose is matched to indication/reason for exam; i.e. extremities or head) *Use of iterative reconstruction technique DLP: 370 mGy-cm FINDINGS: LUNG BASES: The visualized lung bases are unremarkable. There are nondisplaced fractures involving the eighth anterolateral rib and and the left 12th posterior rib. Some mild basilar atelectasis is present. A tiny left pleural effusion is present. LIVER, GALLBLADDER, AND BILIARY TREE: The liver is normal in size and shape but with decreased attenuation suggesting hepatic steatosis with focal fatty sparing around the gallbladder. There is some tiny barely perceptible hepatic hypodensities the largest measuring 2 mm, most likely cysts. No worrisome definite solid focal hepatic lesion or biliary ductal dilatation is present. The gallbladder is unremarkable with no evidence of radiopaque gallstones, gallbladder wall thickening, or obvious pericholecystic inflammatory changes. PANCREAS: Unremarkable. SPLEEN: Unremarkable. No evidence of a splenic injury. ADRENAL GLANDS: Unremarkable. KIDNEYS AND URETERS: The kidneys are normal in size, shape, and attenuation. No hydronephrosis, hydroureter, or calculi seen. A benign right mid renal 0.8 cm Bosniak class I renal cyst is noted which requires no additional imaging or follow up. No solid renal masses are seen. There is nonspecific perirenal stranding bilaterally, right greater than left. BLADDER: Moderately distended but unremarkable GASTROINTESTINAL TRACT: There is colonic diverticulosis without diverticulitis. The small and large bowel are otherwise unremarkable. The appendix is unremarkable. ABDOMINAL WALL: No significant hernia is appreciated. LYMPH NODES: No retroperitoneal lymphadenopathy. VASCULAR: Calcific atherosclerotic changes are present in the aorta and iliofemoral vessels. There is no evidence of an abdominal aortic aneurysm. PELVIC VISCERA: The prostate and seminal vesicles are unremarkable. OSSEOUS STRUCTURES: There are nondisplaced fractures involving the eighth anterolateral rib as well as the posterior left 12th rib (see vizcaino image). Degenerative changes are present in the spine most marked from L3 through L5. There are compression fractures involving the superior endplates of T12 and L1 which are new when compared to the 10/09/2022 study. In addition, there is a new fracture involving the superior posterior aspect of the L2 vertebral body. MRI could always be performed to assess if there is edema at any of these locations to assess acuteness. CT/CT abdomen pelvis w IV con IMPRESSION: 1. There are nondisplaced fractures involving the eighth anterolateral rib and the left 12th posterior rib. 2. New compression fractures involving T12, L1 and L2 as described above. 3. No evidence of a visceral organ injury. 4. Incidental note made of hepatic steatosis, tiny hepatic hypodensities consistent with cysts, benign right renal cyst which requires no additional imaging or follow up, colonic diverticulosis without diverticulitis and other findings described above. Fleischner guidelines were followed.
--- NOTE | ~2023-05-28 | CT_ITS ---
EXAMINATION: CT HEAD WITHOUT CONTRAST CT CERVICAL SPINE WITHOUT CONTRAST CLINICAL INFORMATION: Head strike. Pain. COMPARISON: None available. TECHNIQUE: Contiguous axial imaging was performed through the head and cervical spine without intravenous administration of contrast. Sagittal and coronal reformatted images also obtained. This CT examination was performed using dose optimization techniques as appropriate, variously including the following: *Automated exposure control *Adjustment of mA and/or kV according to patient size (this includes techniques or standardized protocols for targeted exams where dose is matched to indication/reason for exam; i.e. extremities or head) *Use of iterative reconstruction technique DLP: 1067 mGy-cm FINDINGS: There is mild cerebral volume loss with prominence of the lateral and third ventricles. The cortical sulci are widened appropriately. The fourth ventricle and basal cisterns are normally outlined. There is mild to moderate bilateral periventricular and central white matter diminished attenuation. There is no acute territorial defect, hemorrhage or midline shift. The extra-axial spaces are unremarkable. Calvarium: Intact. Axial facial sinuses and mastoids: Clear as visualized. Cervical spine: There is minimal retrolisthesis C3 over C4. The alignment is otherwise normal. There is diffuse rilm-hg-yjsmqjkk cervical disc degenerative change with loss of disc space, endplate change and multilevel posterior osteophytes associated with diffuse facet osteoarthritic hypertrophic change with multilevel mild spinal canal and vfao-mg-qjtxcoyg neuroforaminal narrowing. The bony structures are heterogeneous/osteopenic. There is no fracture. The soft tissues are unremarkable. The visualized upper lung black are clear. There is a 1.3 cm low-density left thyroid nodule. CT/CT head/brain wo IV con IMPRESSION: 1. No acute intracranial process seen. 2. Minimal retrolisthesis C3 over C4. Multilevel cervical degenerative disc changes and facet joint arthropathy with multilevel mild spinal canal and pjds-zw-hvwgfeji neuroforaminal narrowing. 3. No fracture seen.
--- NOTE | ~2023-05-28 | XR_ITS ---
EXAMINATION: XR RIBS, LEFT CLINICAL INFORMATION: Pain status post fall COMPARISON: None available. TECHNIQUE: 3 views of the left ribs and frontal view of the chest were obtained. FINDINGS: Lungs are clear. No consolidation, pneumothorax, or pleural effusion. The cardiomediastinal silhouette and pulmonary vasculature are normal. Probable acute fracture of the distal portion of the left 10th rib seen on a single oblique image. . XR/XR ribs LT min 3V w CXR1V IMPRESSION: Probable acute fracture of the distal portion of the left 10th rib.
--- NOTE | ~2023-05-28 | CT_ITS ---
EXAMINATION: CT HEAD WITHOUT CONTRAST CT CERVICAL SPINE WITHOUT CONTRAST CLINICAL INFORMATION: Head strike. Pain. COMPARISON: None available. TECHNIQUE: Contiguous axial imaging was performed through the head and cervical spine without intravenous administration of contrast. Sagittal and coronal reformatted images also obtained. This CT examination was performed using dose optimization techniques as appropriate, variously including the following: *Automated exposure control *Adjustment of mA and/or kV according to patient size (this includes techniques or standardized protocols for targeted exams where dose is matched to indication/reason for exam; i.e. extremities or head) *Use of iterative reconstruction technique DLP: 1067 mGy-cm FINDINGS: There is mild cerebral volume loss with prominence of the lateral and third ventricles. The cortical sulci are widened appropriately. The fourth ventricle and basal cisterns are normally outlined. There is mild to moderate bilateral periventricular and central white matter diminished attenuation. There is no acute territorial defect, hemorrhage or midline shift. The extra-axial spaces are unremarkable. Calvarium: Intact. Axial facial sinuses and mastoids: Clear as visualized. Cervical spine: There is minimal retrolisthesis C3 over C4. The alignment is otherwise normal. There is diffuse rkso-pv-jcfrzqow cervical disc degenerative change with loss of disc space, endplate change and multilevel posterior osteophytes associated with diffuse facet osteoarthritic hypertrophic change with multilevel mild spinal canal and axsx-mo-giomyygu neuroforaminal narrowing. The bony structures are heterogeneous/osteopenic. There is no fracture. The soft tissues are unremarkable. The visualized upper lung black are clear. There is a 1.3 cm low-density left thyroid nodule. CT/CT cervical spine wo IV con IMPRESSION: 1. No acute intracranial process seen. 2. Minimal retrolisthesis C3 over C4. Multilevel cervical degenerative disc changes and facet joint arthropathy with multilevel mild spinal canal and mlqk-oi-vizuwozp neuroforaminal narrowing. 3. No fracture seen.
--- NOTE | 2023-05-28 12:18 | ECG_ITS ---
Test Reason : CHEST PAIN Blood Pressure : / mmHG Vent. Rate : 104 BPM Atrial Rate : 104 BPM P-R Int : 134 ms QRS Dur : 086 ms QT Int : 346 ms P-R-T Axes : 036 -24 033 degrees QTc Int : 454 ms Sinus tachycardia Possible Left atrial enlargement Minimal voltage criteria for LVH, may be normal variant ( R in aVL ) Cannot rule out Anterior infarct , age undetermined Abnormal ECG When compared with ECG of 09-OCT-2020 05:01, No significant change was found Referred By: Generic ED Physician Electronically Signed By:ROXANNE PARIS MD
[2023-05-28 12:33] VITALS: BP 142/79; PULSE 111; RESP 20; TEMP 36.6; O2SAT 97; BMI 25.1
--- NOTE | 2023-05-28 12:35 | ED.GENADULT ---
HPI - General Adult General Chief complaint: Fall Stated complaint: chest pain Time Seen by Provider: 05/28/23 20:48 Source: patient Mode of arrival: ambulatory Limitations: no limitations History of Present Illness HPI narrative: Patient apparently tripped and fell 2 days ago on the pavement in the store hitting his chest to the ground complaining of pain in the left side of the chest which got worse earlier today when he woke up no shortness of breath no abdominal pain no vomiting fever or chills pain is on left lower ribs in mid axillary area no head injury no neck pain no other injuries Related Data Home Medications Medication Instructions Recorded Confirmed amlodipine 2.5 mg tablet 10 mg PO DAILY 10/21/20 10/09/22 isosorbide mononitrate 10 mg tablet 10 mg PO BID 10/21/20 prednisolone 5 mg tablet 10 mg PO DAILY 10/21/20 atorvastatin 40 mg tablet 40 mg PO DAILY 06/03/22 10/09/22 omeprazole 20 mg capsule,delayed 20 mg PO DAILY 06/03/22 10/09/22 release bisoprolol 10 1 tab PO DAILY 06/20/22 10/09/22 mg-hydrochlorothiazide 6.25 mg tablet terbinafine HCl 250 mg PO DAILY 10/09/22 10/09/22 Previous Rx's Medication Instructions Recorded ibuprofen 600 mg tablet 600 mg PO Q8H PRN pain #14 tabs 10/09/20 prednisone 20 mg tablet 60 mg (3 x 20 mg) PO DAILY #9 tabs 06/03/22 triamcinolone acetonide 0.025 % 1 appl topical BID #15 grams 06/20/22 topical cream cyclobenzaprine 10 mg tablet 10 mg PO Q8H #20 tabs 10/09/22 magnesium oxide 400 mg PO DAILY #60 caps 10/09/22 prednisone 20 mg tablet 40 mg (2 x 20 mg) PO DAILY #10 tabs 10/09/22 thiamine HCl (vitamin B1) 100 mg 100 mg PO DAILY #90 tabs 10/09/22 tablet tramadol 50 mg tablet 50 mg PO Q6H PRN pain #20 tabs 10/09/22 oxycodone-acetaminophen 5 mg-325 1 tab PO Q6H PRN pain #30 tabs 05/29/23 mg tablet (Percocet) Allergies Allergy/AdvReac Type Severity Reaction Status Date / Time Penicillins AdvReac swollen Verified 10/21/22 11:51 Review of Systems Review of Systems: Yes all other systems are reviewed and are negative [facility] Past Medical History Medical History High cholesterol Hypertension Surgical History Knee joint replacement status Social History Social History Alcohol intake: current Alcohol intake frequency: 3 or more drinks per day Alcohol type: beer Smoked in Last 30 Days: No Use of substances other than those prescribed or required for medical reasons: No Advance Directives: Yes Advance Directives on File: No 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 Oriented X3. No acute distress. Eyes: PERRLA, No Nystagmus ENT: Pharynx normal. Oral Mucosa moist atraumatic normocephalic Neck: Normal inspection. Neck supple. No midline tenderness CVS: Normal heart rate and rhythm. Pulses normal. Respiratory: No respiratory distress. Equal air entry bilateral, no wheezing/rales/rhonchi tenderness left lower rib in anterior axillary line Abdomen: Soft and nontender. Bowel sounds are present, no mass palpable, no CVA tenderness Skin: Skin warm and dry. Normal skin color. Normal skin turgor. Extremities: No lower extremity edema. No calf tenderness Neuro: Oriented X 3. No motor deficit. No sensory deficit.No cerebellar signs , cranial nerves II-XII intact Course Course Course Narrative: This is an RME: Additional HPI, ROS, PE not included below will be deferred to primary provider. This is a [id number]-male presenting to the emergency department with a complaint of left-sided rib pain. He is also endorsing some weakness. He states that he had a mechanical fall and fell forward striking the left side of his head. This happened on Sunday. He has had increased left-sided rib pain plan: labs, EKG, CT head, CT cervical spine Medications Administered Discontinued Medications Generic Name Dose Route Start Last Admin Trade Name Marjorie PRN Reason Stop Dose Admin Iohexol 100 ml 05/28/23 22:10 05/28/23 22:11 Iohexol 350 Mg/Ml 100 Ml Infus..Btl IV 05/28/23 22:11 85 ml ONCE ONE Administration Morphine Sulfate 4 mg 05/28/23 20:59 05/28/23 21:28 Morphine Sulfate 4 Mg/Ml Cartridge IVPUSH 05/28/23 21:00 4 mg ONCE ONE Administration Protocol Ondansetron HCl 4 mg 05/28/23 20:59 05/28/23 21:28 Ondansetron Hcl 4 Mg/2 Ml Vial IVPUSH 05/28/23 21:00 4 mg ONCE ONE Administration Oxycodone HCl 10 mg 05/28/23 23:53 05/29/23 00:06 Oxycodone Hcl Immed Release 5 Mg Tablet PO 05/28/23 23:54 10 mg ONCE ONE Administration Medical Decision Making Medical Decision Making [facility] Narrative: Patient's CT scan showed left 8 and 10 nondisplaced rib fracture patient feeling much better after pain medication patient does have history of compression fracture of thoracic and lumbar spine in the past with no increased pain in the back Differential Diagnosis Differential Diagnoses: The differential diagnosis associated with the presentation includes Subdural hematoma/intracerebral bleed/rib fractures/splenic injury/internal abdominal trauma Lab Data [facility] Lab Attestation statement: I reviewed the patient's lab results. 05/28/23 12:50 05/28/23 12:50 Labs: Lab Results 05/28/23 05/28/23 Range/Units 12:50 22:21 WBC 8.5 (4.8-10.8) X10*3/uL RBC 4.72 (4.60-5.80) X10*6/uL Hgb 12.9 L (14.0-18.0) g/dl Hct 37.4 L (42.0-52.0) % MCV 79.2 L (80.0-98.0) fL MCH 27.3 (27.0-33.0) pg MCHC 34.5 (31.0-36.0) g/dl RDW 15.0 (11.0-16.0) % Plt Count 217 (160-400) X10*3/uL MPV 8.7 L (9.4-12.4) fL Immature Gran % (Auto) 0.4 (0.0-0.4) % Neut % (Auto) 72.0 (45-73) % Lymph % (Auto) 15.3 L (20-40) % Mingo % (Auto) 10.4 (2-11) % Eos % (Auto) 1.2 (0-4) % Baso % (Auto) 0.7 (0-2) % Lymph # (Auto) 1.3 (1.2-4.9) X10*3/uL Mingo # (Auto) 0.9 (0.1-1.2) X10*3/uL Eos # (Auto) 0.1 (0.0-0.4) X10*3/uL Baso # (Auto) 0.1 (0.0-0.2) X10*3/uL Abs Immat Gran (auto) 0.03 (0.00-0.03) X10*3/uL Absolute Neuts (auto) 6.1 (2.0-8.3) x10*3/uL Absolute Nucleated RBC 0.000 (0.0-0.012) X10*3/uL Nucleated RBC % (auto) 0.0 (0.0-0.2) /100WBC PT 11.5 (11.1-13.3) SEC INR 0.9 (0.9-1.1) Sodium 126 L (135-145) mmol/L Potassium 3.4 (3.3-5.1) mmol/L Chloride 92 L (96-108) mmol/L Carbon Dioxide 24 (22-29) mmol/L Anion Gap 13 (12-20) BUN 10 (9-16) mg/dL Creatinine 0.76 (0.5-1.4) mg/dL Estim Creat Clear Calc 82.5 Estimated GFR > 60 Random Glucose 132 H (60-115) mg/dL Calcium 9.7 (8.4-10.2) mg/dL Magnesium 1.6 (1.6-2.6) mg/dL Total Bilirubin 0.6 (0.0-1.0) mg/dL Direct Bilirubin 0.2 (0.0-0.5) mg/dL AST 19 (5-37) U/L ALT 15 (0-40) U/L Alkaline Phosphatase 80 (39-117) U/L Troponin I High Sens < 2.7 (<3.5-35.0) ng/L Total Protein 7.0 (6.5-8.0) g/dL Albumin 4.3 (3.5-5.0) g/dL Lipase 10 (8-78) U/L Independent Interpretation I performed an independent interpretation of an: EKG and CT Scan Interpretation: Sinus tachycardia heart rate of 104 beats per minute LVH no acute ST T wave changes no acute ischemia Radiology Impression Discussion of test interpretation with radiology: I have reviewed the radiologist's reading. Radiologist Impression: CT/CT abdomen pelvis w IV con IMPRESSION: 1. There are nondisplaced fractures involving the eighth anterolateral rib and the left 12th posterior rib. 2. New compression fractures involving T12, L1 and L2 as described above. 3. No evidence of a visceral organ injury. 4. Incidental note made of hepatic steatosis, tiny hepatic hypodensities consistent with cysts, benign right renal cyst which requires no additional imaging or follow up, colonic diverticulosis without diverticulitis and other findings described Discharge Plan Discharge Clinical Impression: Closed rib fracture Patient Disposition: Home, Self-Care Instructions: Rib Fracture (ED) Additional Instructions: Take pain medication as prescribed Apply ice pack Report to the ER if increased pain/shortness of breath/abdominal pain Prescriptions: New oxycodone-acetaminophen [Percocet] 5-325 mg tablet 1 tab PO Q6H PRN (Reason: pain) Qty: 30 0RF Rx Instructions: Partial Fill upon patient request. No Action ibuprofen 600 mg tablet 600 mg PO Q8H PRN (Reason: pain) Qty: 14 0RF terbinafine HCl 250 mg PO DAILY prednisone 20 mg tablet 40 mg PO DAILY Qty: 10 0RF tramadol 50 mg tablet 50 mg PO Q6H PRN (Reason: pain) Qty: 20 0RF magnesium oxide 400 mg magnesium capsule 400 mg PO DAILY Qty: 60 0RF cyclobenzaprine 10 mg tablet 10 mg PO Q8H Qty: 20 0RF thiamine HCl (vitamin B1) 100 mg tablet 100 mg PO DAILY Qty: 90 0RF omeprazole 20 mg capsule,delayed release(DR/EC) 20 mg PO DAILY atorvastatin 40 mg tablet 40 mg PO DAILY prednisone 20 mg tablet 60 mg PO DAILY Qty: 9 0RF bisoprolol-hydrochlorothiazide 10-6.25 mg tablet 1 tab PO DAILY triamcinolone acetonide 0.025 % cream 1 appl topical BID Qty: 15 1RF amlodipine 2.5 mg tablet 10 mg PO DAILY prednisolone 5 mg tablet 10 mg PO DAILY isosorbide mononitrate 10 mg tablet 10 mg PO BID Rx Instructions: give doses 7 hrs apart Interventions: ED Discharge Assessment Last Done: 05/29/23 00:12 Discharge Date/Time: 05/29/23 00:12
[2023-05-28 12:55] LABS: MANUAL DIFF FLAG NO
[2023-05-28 12:57] LABS: Basophils Absolute Auto 0.1 X10*3/uL (0.0-0.2); Basophils Percent Auto 0.7 % (0-2); Eosinophils Absolute Auto 0.1 X10*3/uL (0.0-0.4); Eosinophils Percent Auto 1.2 % (0-4); Hematocrit 37.4 % (42.0-52.0); Hemoglobin 12.9 g/dl (14.0-18.0); Imm Gran Abs Auto 0.03 X10*3/uL (0.00-0.03); Imm Gran Pct Auto 0.4 % (0.0-0.4); Lymphocytes Absolute Auto 1.3 X10*3/uL (1.2-4.9); Lymphocytes Percent Auto 15.3 % (20-40); Mean Corpuscular HGB Conc 34.5 g/dl (31.0-36.0); Mean Corpuscular Hemoglobin 27.3 pg (27.0-33.0); Mean Corpuscular Volume 79.2 fL (80.0-98.0); Mean Platelet Volume 8.7 fL (9.4-12.4); Monocytes Absolute Auto 0.9 X10*3/uL (0.1-1.2); Monocytes Percent Auto 10.4 % (2-11); Neutrophils Absolute Auto 6.1 x10*3/uL (2.0-8.3); Platelet Count 217 X10*3/uL (160-400); Red Blood Count 4.72 X10*6/uL (4.60-5.80); White Blood Count 8.5 X10*3/uL (4.8-10.8)
[2023-05-28 13:16] LABS: Alanine Aminotransferase 15 U/L (0-40); Albumin Level 4.3 g/dL (3.5-5.0); Alkaline Phosphatase 80 U/L (39-117); Anion Gap 13 (12-20); Aspartate Amino Transferase 19 U/L (5-37); Bilirubin Direct 0.2 mg/dL (0.0-0.5); Bilirubin Total 0.6 mg/dL (0.0-1.0); Blood Urea Nitrogen 10 mg/dL (9-16); Calcium 9.7 mg/dL (8.4-10.2); Carbon Dioxide 24 mmol/L (22-29); Chloride 92 mmol/L (96-108); Creatinine Clr Calc Pharmacy 82.5; Estimated Glomerular Filt Rate > 60; Glucose Random 132 mg/dL (60-115); Lipase 10 U/L (8-78); Potassium 3.4 mmol/L (3.3-5.1); Sodium 126 mmol/L (135-145)
[2023-05-28 13:24] LABS: Troponin-I High Sensitivity < 2.7 ng/L (<3.5-35.0)
[2023-05-28 20:31] VITALS: BP 149/88; PULSE 97; RESP 15; TEMP 36.6; O2SAT 98
--- OUTSIDE RECORDS SUMMARY | 2023-05-28 20:41 | XMS_ITS | Continuity of Care Document ---
Author Name Unknown Organization [facility] Address [address] [place] [id number]- Care Team Providers Care Rf Manager Name Role Phone Dash Shabana AUGUSTE Primary Care Physician [phone] Encounter [facility] Date(s): 10/18/22 - 11/17/[address] [address] Attending Physician: Not on Staff, Attending MD Admitting Physician: Not on Staff, Admitting MD Referring Physician: Not on Staff, Referring MD Allergies, Adverse Reactions, Alerts Substance Reaction Severity Status penicillin 1 Active lisinopril Nausea Active 1Rash Immunizations Given and Recorded Vaccine Date Status Refusal Reason SARS-CoV-2 (COVID-19) mRNA BNT-162b2 vac 03/11/21 Recorded pneumococcal 23-valent vaccine 05/18/17 Given pneumococcal 13-valent vaccine 05/16/16 Given tetanus/diphtheria/pertussis, acel(Tdap) 10/27/15 Given Tet/Diphth/Acel, Pertussis (oldterm) 12/22/08 Give n Tetanus Toxoid Vaccine (oldterm) 07/12/98 Given Medications amLODIPine 10 mg oral tablet 10 mg, 1, tablet, By Mouth, Daily, # 90 tablet, Refills 3, Tot. Refills 3, Maintenance, hypertension, 05/15/22 9:40:00 EST, Route to Pharmacy Electronically, [facility] # [id number], 177.8, cm, 05/15/22 9:07:00 EST, Height Start Date: 05/15/22 Status: Ordered aspirin 81 mg oral delayed release tablet 81 mg, 1, tablet, By Mouth, Daily, # 30 tablet, Refills 11, Maintenance, 04/23/20 14:26:00 EST, Partial fill upon patient request Start Date: 04/23/20 Stop Date: 05/23/20 Status: Ordered atorvastatin 40 mg oral tablet 1 tablet = 40 mg, By Mouth, Daily, replaces Simvastatin, # 90 tablet, 3 Refills, Maintenance, 05/15/22 9:40:00 EST, Tablet, [facility] # [id number], Partial fill upon patient request, 177.8, cm, 05/15/22 9:07:00 EST, Height Start Date: 05/15/22 Stop Date: 09/12/22 Status: Ordered bisoprolol-hydrochlorothiazide 10 mg-6.25 mg oral tablet 1 tablet, By Mouth, Daily, # 90 tablet, 3 Refills, Maintenance, 05/15/22 9:40:00 EST, Tablet, [facility] # [id number], 1 tablet By Mouth Daily, 177.8, cm, 05/15/22 9:07:00 EST, Height Start Date: 05/15/22 Status: Ordered doxycycline hyclate 100 mg oral capsule 1 capsule = 100 mg, By Mouth, 2 times a day, # 28 capsule, 0 Refills, Acute 12/05/22 14:30:00 EDT, 11/22/22 14:06:00 EDT, Capsule, [facility] # [id number], Partial fill upon patient request if the prescription is for a schedule II opioid drug., 178, cm,... Start Date: 11/22/22 Stop Date: 12/05/22 Status: Ordered ibuprofen 800 mg oral tablet 1, tablet, By Mouth, 3 times a day, PRN, # 42 tablet, Refills 0, Maintenance, NEEDED FOR MODERATE PAIN FOR, 11/13/22 11:05:00 EDT, Route to Pharmacy Electronically, [facility] #[id number], 175, cm, 11/09/22 16:10:00 EDT, Height, 79.5, kg, 11/09/22... Start Date: 11/13/22 Stop Date: 11/27/22 Status: Ordered lidocaine 5% topical film 1 patch, Topically, Daily, PRN Pain , Mild, remove after 12 hours, # 30 patch, 0 Refills, Acute 12/01/22 11:14:00 EDT, 10/31/22 11:13:00 EDT, Film, [facility] # [id number], Partial fill upon patient request if the prescription is for a schedule II opioi... Start Date: 10/31/22 Stop Date: 12/01/22 Status: Ordered methocarbamol 500 mg oral tablet 2 tablet = 1,000 mg, By Mouth, 3 times a day, PRN Pain , Mild, for 7 days, # 30 tablet, 0 Refills, Acute 11/24/22 10:01:00 EDT, 11/17/22 10:01:00 EDT, Tablet, [facility] # [id number], Partial fill uponpatient request if the prescription is for a schedu... Start Date: 11/17/22 Stop Date: 11/24/22 Status: Ordered multivitamin with minerals Multiple Vitamins with Minerals oral tablet 1 tablet, By Mouth, Daily, # 30 tablet, 0 Refills, Maintenance, Tablet Start Date: 02/27/12 Status: Ordered omeprazole 20 mg oral enteric coated capsule 1 capsule = 20 mg, By Mouth, Daily, # 90 capsule, 3 Refills, Maintenance, 10/20/22 12:58:00 EDT, ECCapsule, [facility] # [id number], 178, cm, 10/20/22 6:36:00 EDT, Height Start Date: 10/20/22 Status: Ordered Super B Complex 1 tablet, By Mouth, Daily, 0 Refills, Maintenance, 10/09/18 11:41:24 EDT Start Date: 10/09/18 Status: Ordered Vitamin B12 1000 mcg oral tablet 1 tablet = 1,000 mcg, By Mouth, Daily, # 90 tablet, 0 Refills, Maintenance, 12/01/19 9:17:00 EDT, Tablet Start Date: 12/01/19 Status: Ordered Problem List Condition Confirmation Course Effective Dates Status Health Status Informant Borderline anemia Confirmed Active Thoracic aortic aneurysm Confirmed Active Coronary artery calcification seen on CT scan Confirmed Active Coronary artery disease Confirmed Active Dyshidrotic eczema hands Confirmed Active Dyspnea on exertion Confirmed Active Erectile dysfunction Confirmed Active Esophagitis Confirmed 05/09/12 Active Family history of prostate cancer brother Confirmed Active Hypercholesterolemia Confirmed Active Hypertension Confirmed Active Moderate drinker of alcohol Confirmed Active Nasal congestion Confirmed Active Osteoarthritis of right knee Confirmed Active Tubular adenoma 1 Confirmed 05/09/12 Active 1tubular adenoma in 2018, will need repeat screening colonoscopy in 2022 Social History Social History Type Response Smoking Status Former smoker; Type: Cigarettes; Started at age: 9; Stopped at age: 29; entered on: 08/25/14 Sex Patient Care team information Care Team Personnel Name: Nahed Crain RN Position: [facility] SN RN Member Role: Primary Care Nurse Name: Lex Tillman RN Position: [facility] RN Member Role: Primary Care Nurse Name: Shabana Newton MD Position: [facility] Physician - Primary Care Member Role: PCP Address: Address: [address] [place] [address] [place] [address]- Name: Tamra Perez RN Position: [facility] RN Member Role: Primary Care Nurse Name: Wu Lake RN Position: [facility] RN Member Role: Primary Care Nurse Name: Bobby Quintanilla RN Position: [facility] RN Member Role: Primary Care Nurse Care Team Related Persons Name: MARK MIMS Address: [address] [address]
--- OUTSIDE RECORDS SUMMARY | 2023-05-28 20:41 | XMS_ITS | Continuity of Care Document ---
Author Name Unknown Organization [facility] edicine Address [address] [address]- Care Team Providers Care Recruitment Manager Name Role Phone Shabana Newton MD Primary Care Physician [facility]counter [facility] Date(s): 04/18/23 - 05/18/23 [facility] [address] [place] [id number] Allergies, Adverse Reactions, Alerts Substance Reaction Severity Status penicillin 1 Active lisinopril Nausea Active 1Rash Immunizations Given and Recorded Vaccine Date Status Refusal Reason SARS-CoV-2 (COVID-19) mRNA BNT-162b2 vac 03/11/21 Recorded pneumococcal 23-valent vaccine 05/18/17 Given pneumococcal 13-valent vaccine 05/16/16 Given tetanus/diphtheria/pertussis, acel(Tdap) 10/27/15 Given Tet/Diphth/Acel, Pertussis (oldterm) 12/22/08 Give n Tetanus Toxoid Vaccine (oldterm) 07/12/98 Given Medications acetaminophen 325 mg oral tablet 650 mg, By Mouth, 4 times a day, Refills 0, Maintenance, 01/31/23 9:17:00 EDT, Partial fill upon patient request if the prescription is for a schedule II opioid drug. Start Date: 01/31/23 Status: Ordered amLODIPine 10 mg oral tablet 10 mg, By Mouth, Daily, Refills 0, Maintenance, 01/31/23 9:10:00 EDT, Partial fill upon patient request if the prescription is for a schedule II opioid drug. Start Date: 01/31/23 Status: Ordered aspirin 81 mg oral delayed release tablet 81 mg, By Mouth, Daily, Refills 0, Maintenance, 01/31/23 9:10:00 EDT, Partial fill upon patient request if the prescription is for a schedule II opioid drug. Start Date: 01/31/23 Status: Ordered bisacodyl 10 mg rectal suppository 1 supp = 10 mg, Rectally, Daily, PRN Constipation, hold for loose stools, # 10 supp, 0 Refills, Maintenance, 01/31/23 9:02:00 EDT, Suppository, Partial fill upon patient request if the prescription is for a schedule II opioid drug. Start Date: 01/31/23 Status: Ordered diazepam 5 mg oral tablet 5 mg, 1, tablet, By Mouth, Once, one hour before MRI, # 1 tablet, Refills 0, Tot. Refills 0, Soft Stop, 03/07/23 20:14:00 EDT, Route to Pharmacy Electronically, [facility] # [id number], Partial fill upon patient request if the prescription is for a sche... Start Date: 03/07/23 Status: Ordered docusate-senna 50 mg-8.6 mg oral capsule 1 capsule, By Mouth, 2 times a day, 1 capsule 2 times a day as needed for management of constipation. hold for loose stools. further refills-contact pcp or purchase over the counter., # 60 capsule, 0Refills, Maintenance, 01/31/23 9:52:00 EDT, Capsule... Start Date: 01/31/23 Stop Date: 03/02/23 Status: Ordered Flomax 0.4 mg oral capsule 0.4 mg, By Mouth, Daily, 1 capsule daily 30 minutes after the same meal for management of urinary retention. follow up with pcp and call [facility] urology to schedule outpatient appt for furthermgmt and refills., # 30 each, Refills 11, Tot. Re... Start Date: 02/28/23 Stop Date: 02/23/24 Status: Ordered gabapentin 300 mg oral capsule See Instructions, 1 capsule By Mouth morning and noon and 2 capsules at bedtime, # 120 each, Refills 5, Tot. Refills 5, Maintenance, 02/09/23 8:50:00 EDT, Instructions Replace Required Details, [facility] Electron[facility], [facility],... Start Date: 02/09/23 Status: Ordered ipratropium 500 mcg/2.5 mL inhalation solution 500 mcg, 2.5, mL, Inhalation, 4 times a day, PRN, # 120 each, Refills 11, Tot. Refills 11, Maintenance, 04/18/23 12:19:00 EST, Solution, Route to Pharmacy Electronically, [id number], [facility] # [facility], 175, cm, 04/13/23 1... Start Date: 04/18/23 Status: Ordered melatonin 3 mg oral tablet = 3 mg, By Mouth, Daily at bedtime, PRN Insomnia, 0 Refills, Maintenance, 01/31/23 9:24:00 EDT, Tablet, Partial fill upon patient request if the prescription is for a schedule II opioid drug. Start Date: 01/31/23 Status: Ordered MiraLax oral powder for reconstitution = 17 Gm, By Mouth, Daily, 17gm daily for management of constipation. dissolve in water before taking. hold for loose stools. further refills-contact pcp or purchase over the counter., # 255 Gm, 0 Refills, Maintenance, 01/31/23 9:53:00 EDT, REC Powder,... Start Date: 01/31/23 Status: Ordered multivitamin with minerals Multiple Vitamins with Minerals oral tablet 1 tablet, By Mouth, Daily, # 30 tablet, 0 Refills, Maintenance, 01/31/23 8:59:00 EDT, Tablet Start Date: 01/31/23 Status: Ordered Nebulizer/Compressor See Instructions, # 1 each, Refills 11, Tot. Refills 11, Maintenance, E0570 Nebulizer A7003 Neb Disp Set A7014 Neb non-Disp Filter A7005 Neb Non-Disp set A7015 Aerosol Mask A7013 Neb Disp Filter length of need lifetime 99 months for home use, 0... Start Date: 04/18/23 Status: Ordered omeprazole 20 mg oral enteric coated capsule 1 capsule = 20 mg, By Mouth, Daily, # 90 capsule, 3 Refills, Maintenance, 10/20/22 12:58:00 EDT, [facility], [facility], 178, cm, 10/20/22 6:36:00 EDT, Height Start Date: 10/20/22 Status: Ordered oxyCODONE 10 mg oral tablet 1 tablet = 10 mg, By Mouth, 3 times a day, PRN Pain , Severe, for 28 days, # 84 tablet, 0 Refills, Acute 05/28/23 16:57:00 EST, 04/30/23 16:57:00 EST, [facility], Partial fill upon patientrequest if the prescription is for a schedule II op... Start Date: 04/30/23 Stop Date: 05/28/23 Status: Ordered Vitamin B12 1000 mcg oral tablet 1 tablet = 1,000 mcg, By Mouth, Daily, # 30 tablet, 0 Refills, Maintenance, 01/31/23 8:59:00 EDT, Tablet, Partial fill upon patient request if the prescription is for a schedule II opioid drug. Start Date: 01/31/23 Status: Ordered Problem List Condition Confirmation Course Effective Dates Status Health Status Informant Borderline anemia Confirmed Active Thoracic aortic aneurysm Confirmed Active Intractable back pain Confirmed Active Coronary artery calcification seen on CT scan Confirmed Active Constipation Confirmed Active Coronary artery disease Confirmed Active Diskitis Confirmed Active Dyshidrotic eczema hands Confirmed Active Dyspnea on exertion Confirmed Active Erectile dysfunction Confirmed Active Esophagitis Confirmed 05/09/12 Active Family history of prostate cancer brother Confirmed Active Hypercholesterolemia Confirmed Active Hypertension Confirmed Active Moderate drinker of alcohol Confirmed Active Nasal congestion Confirmed Active Osteoarthritis of right knee Confirmed Active Osteomyelitis Confirmed Active 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 Active Tubular adenoma 1 Confirmed 05/09/12 Active 1tubular adenoma in 2018, will need repeat screening colonoscopy in 2022 Social History Social History Type Response Smoking Status Former smoker, quit more than 30 days ago; Other: quit 1979; entered on: 03/13/23 Sex Patient Care team information Care Team Personnel Name: Fadumo Aguilera RN Position: [facility] RN Member Role: Primary Care Nurse Name: Mookie Jacobson MD Position: [facility] Renal MD Member Role: Lifetime Consulting Physician Address: Address: [address] [place] [address] [address] [facility] [address]- [place] Name: Nahed Crain RN Position: [facility] SN RN Member Role: Primary Care Nurse Name: Thalia Murcia RN Position: [facility] RN Member Role: Primary Care Nurse Name: Shabana Newton MD Position: [facility] Physician - Primary Care Member Role: PCP Address: Address: [address] [place] [address] [place] [address]- Name: Giorgi Schuster RN Position: [facility] RN Member Role: Primary Care Nurse Name: Jayashree Campo RN Position: [facility] RN Supv Member Role: Primary Care Nurse Name: Daniel Dumont DO Position: S Renal MD Member Role: Lifetime Consulting Physician Address: Address: [address] [place] [address] [address] [facility] [place] [address]- Name: Tamra Perez RN Position: S RN Member Role: Primary Care Nurse Name: Haley Tilley RN Position: S RN Member Role: Primary Care Nurse Name: Ruchi Irwin RN Position: S RN Member Role: Primary Care Nurse Name: Bobby Quintanilla RN Position: S RN Member Role: Primary Care Nurse Name: Kg Blake MD Position: [facility] Renal MD Member Role: Lifetime Consulting Physician Address: Address: [address] [place] [address] [address] [facility] [place] [address]- Name: Tena Holden RN Position: S RN Member Role: Primary Care Nurse Name: Shon Fleming MD Position: [facility] Renal MD Member Role: Lifetime Consulting Physician Address: Address: [address] [place] [address] [facility] [place] [address]- Name: Katiuska Benito LPN Position: S RN Member Role: Primary Care Nurse Care Team Related Persons Name: STAR MIMS Address: [address] [place] [address]
--- OUTSIDE RECORDS SUMMARY | 2023-05-28 20:41 | XMS_ITS | Continuity of Care Document ---
Author Name Unknown Organization [facility] Address [address] [place] [address]- Care Team Providers Care Combat Information [employer] Officer Name Role Phone Shabana Newton MD Primary Care Physician [phone] [facility]counter [facility] Date[facility]s): 04/04/23 - 05/04/23 [facility] [address] [place] [id number] Attending Physician: AdmChetan chandler Admitting Physician: AdmtrChetan Referring Physician: Admtr, Ar8 Allergies, Adverse Reactions, Alerts Substance Reaction Severity [...] 03/07/23 20:14:00 EDT, Route to Pharmacy Electronically, [facility] # 302, Partial fill upon patient [...] retention. follow up with pcp and call [facility] to schedule outpatient appt for furthermgmt and refills., # 30 each, Refills 11, Tot. Re... Start Date: 02/28/23 Stop Date: 02/23/24 Status: Ordered gabapentin 300 mg oral capsule See Instructions, 1 capsule By Mouth morning and noon and 2 capsules at bedtime, # 120 each, Refills 5, Tot. Refills 5, Maintenance, 02/09/23 8:50:00 EDT, Instructions Replace Required Details, [facility] Electron[facility], [facility] # [facility],... Start Date: 02/09/23 Status: Ordered ipratropium 500 mcg/2.5 mL inhalation solution 500 mcg, 2.5, mL, Inhalation, 4 times a day, PRN, # 120 each, Refills 11, Tot. Refills 11, Maintenance, 04/18/23 12:19:00 EST, Solution, Route to Pharmacy Electronically, [id number], [facility] # 302, 175, cm, 04/13/23 1... [...] need lifetime 99 months for home use, ... Start Date: 04/18/23 Status: Ordered omeprazole 20 mg oral enteric coated capsule 1 capsule = 20 mg, By Mouth, Daily, # 90 capsule, 3 Refills, Maintenance, 10/20/22 12:58:00 EDT, ECCapsule, [facility] # 302, 178, cm, 10/20/22 6:36:00 EDT, Height Start Date: 10/20/22 Status: Ordered oxyCODONE 10 mg oral tablet 1 tablet = 10 mg, By Mouth, 3 times a day, PRN Pain , Severe, for 28 days, # 84 tablet, 0 Refills, Acute 05/28/23 16:57:00 EST, 04/30/23 16:57:00 EST, [facility] # 302, Partial fill upon patientrequest [...] Team Personnel Name: Fadumo Aguilera RN Position: [facility] RN Member Role: Primary Care Nurse Name: Mookie Jacobson MD Position: [facility] Renal MD Member Role: Lifetime Consulting Physician Address: Address: [address] [place] [address] [address] [facility] [address]- [place] Name: Nhaed Crain RN Position: [facility] SN RN Member Role: Primary Care Nurse Name: Thalia Murcia RN Position: [facility] RN Member Role: Primary Care Nurse Name: Shabana Newton MD Position: [facility] Physician - Primary Care Member Role: PCP Address: Address: [address] [place] [address] [place] [address]- Name: Giorgi Schuster RN Position: S RN Member Role: Primary Care Nurse Name: Jayashree Campo RN Position: S RN Supv Member Role: Primary Care Nurse Name: Daniel Dumont DO Position: [facility] Renal MD Member Role: Lifetime Consulting Physician Address: Address: [address] [facility] [address] [facility] [place] [address]- [place] Name: Tamra Perez RN Position: S RN Member Role: Primary Care Nurse Name: Haley Tilley RN Position: [facility] RN Member Role: Primary Care Nurse Name: Ruchi Irwin RN Position: S RN Member Role: Primary Care Nurse Name: Bobby Quintanilla RN Position: S RN Member Role: Primary Care Nurse Name: Kg Blake MD Position: [facility] Renal MD Member Role: Lifetime Consulting Physician Address: Address: [address] [place] [address] [address] [facility] [place] [address]- [place] Name: Tena Holden RN Position: [facility] RN Member Role: Primary Care Nurse Name: Shon Fleming MD Position: [facility] Renal MD Member Role: Lifetime Consulting Physician Address: Address: [address] [place] [address] [facility] [place] [address]- [place] Name: Katiuska Benito LPN Position: S RN Member Role: Primary Care Nurse Care Team Related Persons Name: STAR MIMS Address: [address] [place] [address]
--- OUTSIDE RECORDS SUMMARY | 2023-05-28 20:41 | XMS_ITS | Continuity of Care Document ---
Author Name Unknown Organization [facility] ter Address [address] [place] [id number]- Care Team Providers [employer] Name Role Phone Shabana Newton MD Primary Care Physician Encounter [facility] Date(s): 10/12/22 - 10/20/[address] [id number]- Discharge Disposition: A-Transfer VNA/Home Health Attending Physician: Tammi Dooley MD Admitting Physician: Helen Boss MD Referring Physician: Not on Staff, Referring [...] 05/15/22 9:40:00 EST, Route to Pharmacy Electronically, [facility] # [id number], 177.8, cm, 05/15/22 9:07:00 [...] 3 Refills, Maintenance, 05/15/22 9:40:00 EST, Tablet, [facility] # [id number], Partial fill upon patient request, 177.8, cm, 05/15/22 9:07:00 EST, Height Start Date: 05/15/22 Stop Date: 09/12/22 Status: Ordered bisoprolol-hydrochlorothiazide 10 mg-6.25 mg oral tablet 1 tablet, By Mouth, Daily, # 90 tablet, 3 Refills, Maintenance, 05/15/22 9:40:00 EST, Tablet, [facility] # [id number], 1 tablet By Mouth Daily, 177.8, cm, 05/15/22 9:07:00 EST, Height Start Date: 05/15/22 Status: Ordered fluconazole 200 mg oral tablet 1 tablet = 200 mg, By Mouth, Daily, for 12 days, # 12 tablet, 0 Refills, Acute 11/01/22 12:56:00 EDT, 10/20/22 12:56:00 EDT, Tablet, [facility] # 302, Partial fill upon patient request if the prescription is for a schedule II opioid drug., 178, c... Start Date: 10/20/22 Stop Date: 11/01/22 Status: Ordered multivitamin with minerals Multiple Vitamins with Minerals oral tablet 1 tablet, By Mouth, Daily, # 30 tablet, 0 Refills, Maintenance, Tablet Start Date: 02/27/12 Status: Ordered omeprazole 20 mg oral enteric coated capsule 1 capsule = 20 mg, By Mouth, Daily, # 90 capsule, 3 Refills, Maintenance, 10/20/22 12:58:00 EDT, ECCapsule, [facility] # [id number], 178, cm, 10/20/22 6:36:00 EDT, Height Start Date: 10/20/22 Status: Ordered Super B Complex 1 tablet, By Mouth, Daily, 0 Refills, Maintenance, 10/09/18 11:41:24 EDT Start Date: 10/09/18 Status: Ordered triamcinolone 0.5% topical cream See Instructions, Topically 2 times a day apply a thin film, # 60 Gm, 0 Refills, Acute 10/28/22 9:00:00 EDT, 10/20/22 12:56:00 EDT, [facility], Partial fill upon patient request if the prescription is for a schedule II opioid drug.,... Start Date: 10/20/22 Stop Date: 10/28/22 Status: Ordered Vitamin B12 1000 mcg oral [...] will need repeat screening colonoscopy in 2022 Results Orders for Microbiology Reports Name Date Blood Culture 10/16/22 Blood Culture #2 10/16/22 Blood Culture 10/13/22 Blood Culture #2 10/13/22 Blood Culture 10/12/22 Blood Culture #2 10/12/22 Blood Culture 10/11/22 Blood Culture #2 10/11/22 Microbiology Reports TEST:Blood Culture STATUS:Unauthenticated BODY SITE: SOURCE:Blood COLLECTED DATE/TIME:10/16/22 4:20 PM Blood Culture SPECIMEN DESCRIPTION : BLOOD l hand SPECIAL REQUESTS : NONE CULTURE : NO GROWTH 4 DAYS REPORT STATUS : PRELIMINARY REPORT TEST:Blood Culture, Second Order STATUS:Unauthenticated BODY SITE: SOURCE:Blood COLLECTED DATE/TIME:10/16/22 4:20 PM Blood Culture, Second Order SPECIMEN DESCRIPTION : BLOOD r hand SPECIAL REQUESTS : NONE CULTURE : NO GROWTH 4 DAYS REPORT STATUS : PRELIMINARY REPORT TEST:Blood Culture STATUS:Auth (Verified) BODY SITE: SOURCE:Blood COLLECTED DATE/TIME:10/13/22 8:25 AM Blood Culture SPECIMEN DESCRIPTION : BLOOD L HAND SPECIAL REQUESTS : NONE CULTURE : STAPHYLOCOCCUS AUREUS, METHICILLIN RESISTANT. METHICILLIN RESISTANT STAPH AUREUS SHOULD BE CONSIDERED CLINICALLY RESISTANT TO ALL BETA-LACTAMS. Result reported to the [facility]. This isolate was identified using Maldi-TOF system These AST results were performed on the [employer] ID and AST system REPORT STATUS : FINAL 10/16/2022 ORGANISM STAPHYLOCOCCUS AUREUS, METHICILLIN RESISTANT. ORGANISM METHICILLIN RESISTANT STAPH AUREUS SHOULD BE ORGANISM CONSIDERED CLINICALLY RESISTANT TO ALL ORGANISM BETA-LACTAMS. Result reported to the [facility]. This isolate was identified using Maldi-TOF system These AST results were performed on the [employer] ID and AST system METHOD MIN. INHIB. CONC. (MCG/ML) CIPROFLOXACIN RESISTANT CLINDAMYCIN SUSCEPTIBLE DAPTOMYCIN SUSCEPTIBLE DAPTOMYCIN FABIAN EQ 1 MCG/ML ERYTHROMYCIN RESISTANT INDUCIBLE CLINDAMYCI NEGATIVE LEVOFLOXACIN RESISTANT LINEZOLID SUSCEPTIBLE OXACILLIN RESISTANT RIFAMPIN SUSCEPTIBLE RIFAMPIN RIFAMPIN SHOULD NOT BE USED ALONE FOR ANTIMICROBIAL RIFAMPIN THERAPY. TETRACYCLINE SUSCEPTIBLE TRIMETH/SULFAMETHOX SUSCEPTIBLE VANCOMYCIN SUSCEPTIBLE VANCOMYCIN FABIAN EQ 2 MCG/ML TEST:Blood Culture, Second Order STATUS:Auth (Verified) BODY SITE: SOURCE:Blood COLLECTED DATE/TIME:10/13/22 8:25 AM Blood Culture, Second Order SPECIMEN DESCRIPTION : BLOOD R HAND SPECIAL REQUESTS : CRITICAL VALUE CALLED AND VERIFIED BY READBACK FOR: GRAM POSITIVE COCCI IN BLOOD TO [id number], [id number] BY TECH [id number] ON 10/14/22 AT 1147. CULTURE : STAPHYLOCOCCUS AUREUS, METHICILLIN RESISTANT. METHICILLIN RESISTANT STAPH AUREUS SHOULD BE CONSIDERED CLINICALLY RESISTANT TO ALL BETA-LACTAMS. Result reported to the [facility]. This isolate was identified using Maldi-TOF system FOR SUSCEPTIBILITY RESULT REFER TO BLOOD CULTURE REPORT STATUS : FINAL 10/16/2022 TEST:Blood Culture, Second Order STATUS:Auth (Verified) BODY SITE: SOURCE:Blood COLLECTED DATE/TIME:10/12/22 9:22 AM Blood Culture, Second Order SPECIMEN DESCRIPTION : BLOOD r hand SPECIAL REQUESTS : CRITICAL VALUE CALLED AND VERIFIED BY READBACK FOR: GRAM POSITIVE COCCI CALLED TO [id number] AT D3B, ON 10/13 AT 0036, BY TECH [id number] CULTURE : STAPHYLOCOCCUS AUREUS, METHICILLIN RESISTANT. METHICILLIN RESISTANT STAPH AUREUS SHOULD BE CONSIDERED CLINICALLY RESISTANT TO ALL BETA-LACTAMS. Result reported to the [facility]. This isolate was identified using Maldi-TOF system These AST results were performed on the [employer] ID and AST system REPORT STATUS : FINAL 10/15/2022 ORGANISM STAPHYLOCOCCUS AUREUS, METHICILLIN RESISTANT. ORGANISM METHICILLIN RESISTANT STAPH AUREUS SHOULD BE ORGANISM CONSIDERED CLINICALLY RESISTANT TO ALL ORGANISM BETA-LACTAMS. Result reported to the [facility]. This isolate was identified using Maldi-TOF system These AST results were performed on the [employer] ID and AST system METHOD MIN. INHIB. CONC. (MCG/ML) CIPROFLOXACIN RESISTANT CLINDAMYCIN SUSCEPTIBLE DAPTOMYCIN SUSCEPTIBLE DAPTOMYCIN FABIAN EQ 1 MCG/ML ERYTHROMYCIN RESISTANT INDUCIBLE CLINDAMYCI NEGATIVE LEVOFLOXACIN RESISTANT LINEZOLID SUSCEPTIBLE OXACILLIN RESISTANT RIFAMPIN SUSCEPTIBLE RIFAMPIN RIFAMPIN SHOULD NOT BE USED ALONE FOR ANTIMICROBIAL RIFAMPIN THERAPY. TETRACYCLINE SUSCEPTIBLE TRIMETH/SULFAMETHOX SUSCEPTIBLE VANCOMYCIN SUSCEPTIBLE VANCOMYCIN FABIAN EQ 2 MCG/ML TEST:Blood Culture STATUS:Auth (Verified) BODY SITE: SOURCE:Blood COLLECTED DATE/TIME:10/12/22 9:12 AM Blood Culture SPECIMEN DESCRIPTION : BLOOD L HAND SPECIAL REQUESTS : NONE CULTURE : STAPHYLOCOCCUS AUREUS, METHICILLIN RESISTANT. METHICILLIN RESISTANT STAPH AUREUS SHOULD BE CONSIDERED CLINICALLY RESISTANT TO ALL BETA-LACTAMS. This isolate was identified using Maldi-TOF system FOR SUSCEPTIBILITY RESULT REFER TO BLOOD CULTURE Result reported to the [facility]. REPORT STATUS : FINAL 10/15/2022 TEST:Blood Culture STATUS:Auth (Verified) BODY SITE: SOURCE:Blood COLLECTED DATE/TIME:10/11/22 10:47 AM Blood Culture SPECIMEN DESCRIPTION : BLOOD LAC SPECIAL REQUESTS : CRITICAL VALUE CALLED AND VERIFIED BY READBACK FOR: GRAM POSITIVE COCCI TO [id number], ED, 10/12 AT 0142 BY TECH [id number] CULTURE : STAPHYLOCOCCUS AUREUS, METHICILLIN RESISTANT. METHICILLIN RESISTANT STAPH AUREUS SHOULD BE CONSIDERED CLINICALLY RESISTANT TO ALL BETA-LACTAMS. FOR SUSCEPTIBILITY RESULT REFER TO BLOOD CULTURE Result reported to the [facility]. S. aureus was identified by multiplex PCR. mecA detected. Due to the presence of the mecA gene, this isolate should be considered resistant to methicillin (MRSA). REPORT STATUS : FINAL 10/14/2022 TEST:Blood Culture, Second Order STATUS:Auth (Verified) BODY SITE: SOURCE:Blood COLLECTED DATE/TIME:10/11/22 10:47 AM Blood Culture, Second Order SPECIMEN DESCRIPTION : BLOOD LHAND SPECIAL REQUESTS : NONE CULTURE : STAPHYLOCOCCUS AUREUS, METHICILLIN RESISTANT. METHICILLIN RESISTANT STAPH AUREUS SHOULD BE CONSIDERED CLINICALLY RESISTANT TO ALL BETA-LACTAMS. Result reported to the [facility]. This isolate was identified using Maldi-TOF system These AST results were performed on the Microscan ID and AST system REPORT STATUS : FINAL 10/14/2022 ORGANISM STAPHYLOCOCCUS AUREUS, METHICILLIN RESISTANT. ORGANISM METHICILLIN RESISTANT STAPH AUREUS SHOULD BE ORGANISM CONSIDERED CLINICALLY RESISTANT TO ALL ORGANISM BETA-LACTAMS. Result reported to the [facility]. This isolate was identified using Maldi-TOF system These AST results were performed on the Microscan ID and AST system METHOD MIN. INHIB. CONC. (MCG/ML) CIPROFLOXACIN RESISTANT CLINDAMYCIN SUSCEPTIBLE DAPTOMYCIN SUSCEPTIBLE DAPTOMYCIN FABIAN EQ <0.5 MCG/ML ERYTHROMYCIN RESISTANT INDUCIBLE CLINDAMYCI NEGATIVE LEVOFLOXACIN RESISTANT LINEZOLID SUSCEPTIBLE OXACILLIN RESISTANT RIFAMPIN SUSCEPTIBLE RIFAMPIN RIFAMPIN SHOULD NOT BE USED ALONE FOR ANTIMICROBIAL RIFAMPIN THERAPY. TETRACYCLINE SUSCEPTIBLE TRIMETH/SULFAMETHOX SUSCEPTIBLE VANCOMYCIN SUSCEPTIBLE VANCOMYCIN FABIAN EQ 2 MCG/ML Radiology Reports * Exam Date Time Procedure Performing Provider Status 10/12/22 1:44 PM Wrist Comp Min 3 Views Left J Carlos Rayo; Auth (Verified) Notes: (Wrist Comp Min 3 Views Left) Reason For Exam: Pain RESULT: Wrist Comp Min 3 Views Left Wrist Comp Min 3 Views Left Reason: Pain; Clinical Question(s): Osteomyelitis COMPARISON: None. 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 No fracture or dislocation. No osseous erosion. Atheromatous vascular calcifications. IMPRESSION: No radiographic evidence of osteomyelitis. Degenerative changes are outlined above WSN: [id number] Ordering Physician: Jacques Yates Dictated By: Jose Lang MD Dictated Date/Time: 10/12/22 1:49 pm Reviewed By: Jose Lang MD Signed By: Jose Lang MD Signed Date/Time: 10/12/22 1:49 pm Transcribed By: JAIME Transcribed Date/Time: 10/12/22 1:46 pm * Exam Date Time Procedure Performing Provider Status 10/11/22 9:16 PM MRI Lumbar Spine W+W/O Contrast Jessica Myrick; Auth (Verified) Notes: (MRI Lumbar Spine W+W/O Contrast) Reason For Exam: Epidural abscess;Other: RESULT: MRI Lumbar Spine W+W/O Contrast MRI Thoracic Spine W+W/O Contrast, MRI Lumbar Spine W+W/O Contrast INDICATION: Refer to EMR; Hx of Present Illness: Pt from home, sunday recieved new med, wayne injection for borderline erythrodermic psoriasis, sunday AM started with SOB, mid back pain, was seen [place] with full workup and D C, new onset pedal edema, initial O2 89% RA, 97% on 2LNC for ems; Reason: Other:; Epidural abscess; Clinical Question(s): Epidural Empyema; Special Instructions: obtainwithin six h Epidural Empyema TECHNIQUE: MRI of the thoracic and lumbar spine was performed without and with intravenous gadolinium contrast material utilizing the departmental epidural abscess protocol. 16 mL of Clariscan was administered intravenously. COMPARISON: CT scan of the chest 08/22/2022 FINDINGS: Multiple images are degraded by patient motion which diminishes detail, and interpretation was made in light of this technical confine. MRI OF THE THORACIC SPINE ALIGNMENT, VERTEBRAE, MARROW, AND DISCS: There is mild exaggeration of the thoracic kyphosis without subluxation. Mild chronic multilevel loss of thoracic disc space height is noted. No retropulsion of bone. Heterogeneity of the marrow is noted on the sagittal T1-weighted images. Mild multilevel loss of thoracic disc space height. Scattered marginal spurring. At T9-T10, there is STIR bright signal within the anterior aspect of the disc space with STIR bright signal within the adjacent anterior T9 and T10 vertebral bodies. Minimal STIR bright signal withinthe anterior paraspinal soft tissues adjacent to the T9 and T10 vertebral bodies is noted. No definite fluid collection. CORD: There is no compression of the thoracic spinal cord. No definite epidural fluid collection. PARASPINAL TISSUES: See above. Small bilateral pleural effusions. MRI OF THE LUMBAR SPINE ALIGNMENT, VERTEBRAE, MARROW, AND DISCS: No significant subluxation is noted. The lumbar vertebral bodies are normal in height. Heterogeneity of the marrow is noted on the sagittal T1-weighted images. Severe loss of height of L3-L4 and L4-L5. The remainder of the lumbar discs are at least mildly diminished in height. Mild left posterior Modic type I endplate change at L4-L5. Marginal osteophytes and facet arthroses are present at multiple levels. CONUS: The visualized lower thoracic cord is unremarkable, in the conus terminates at approximatelyL1. No epidural fluid collection or abnormal leptomeningeal enhancement. PARASPINAL TISSUES: No acute retroperitoneal abnormality. Patchy T2 bright signal within the posterior paraspinal muscles. The presacral soft tissues are unremarkable. L1-L2: Concentric disc-osteophyte complex with a superimposed right paracentral- subarticular disc protrusion. Mild-moderate right central canal narrowing with crowding of the traversing right L2 nerve roots. Mild right and mild left foraminal narrowing. L2-L3: Concentric disc-osteophyte complex and mild facet arthrosis. Small right facet joint effusion. Mild central canal narrowing. Mild-moderate right and mild left foraminal narrowing. L3-L4: Concentric disc-osteophyte complex and facet arthrosis. Small right facet joint effusion. Moderate central canal stenosis. Mild right and moderate left foraminal narrowing. L4-L5: Concentric disc-osteophyte complex and facet arthrosis. Moderate central canal stenosis. Mild-moderate right and moderate-severe left foraminal stenosis. L5-S1: A broad-based posterior disc bulge and facet arthrosis. No significant central canal narrowing. Moderate right and no left foraminal stenosis. IMPRESSION: 1. Motion-degraded examination of the thoracic and lumbar spine. 2. No thoracic or lumbar epidural fluid collection. No thoracic cord compression or cauda equina impingement. 3. STIR bright signal is present within the anterior aspect of the T9-T10 disc space with mild T2 bright signal within the adjacent T9 and T10 vertebral bodies and ventral paraspinal soft tissues. Although the findings could be related to degenerative change, osteomyelitis/discitis can give a similar appearance and should be strongly considered. 4. No evidence of osteomyelitis/discitis of the lumbar spine. 5. Degenerative changes of the lumbar spine with central canal and foraminal narrowing as detailed above. These findings can be correlated with the patient's symptoms and neurological examination. 6. Patchy T2 bright signal within the lumbar posterior paraspinal musculature, which may be due to myositis. 7. Heterogeneous marrow, which may be due to heterogeneous red marrow transformation or osteoporosis. A preliminary report was issued to the emergency room by the ad service 10/11/2022 at 10:33 PM. WSN: [id number] Ordering Physician: Casa Rao Dictated By: Diego Georges MD Dictated Date/Time: 10/12/22 9:41 am Reviewed By: Diego Georges MD Signed By: Diego Georges MD Signed Date/Time: 10/12/22 9:41 am Transcribed By: JAIME Transcribed Date/Time: 10/12/22 9:17 am * Exam Date Time Procedure Performing Provider Status 10/11/22 9:16 PM MRI Thoracic Spine W+W/O Contrast Jessica Hernandez; Prosper (Verified) Notes: (MRI Thoracic Spine W+W/O Contrast) Reason For Exam: Epidural abscess;Other: RESULT: MRI Thoracic Spine W+W/O Contrast MRI Thoracic Spine W+W/O Contrast, MRI Lumbar Spine W+W/O Contrast INDICATION: Refer to EMR; Hx of Present Illness: Pt from home, sunday recieved new med, wayne injection for borderline erythrodermic psoriasis, sunday AM started with SOB, mid back pain, was seen [place] with full workup and D C, new onset pedal edema, initial O2 89% RA, 97% on 2LNC for ems; Reason: Other:; Epidural abscess; Clinical Question(s): Epidural Empyema; Special Instructions: obtainwithin six h Epidural Empyema TECHNIQUE: MRI of the thoracic and lumbar spine was performed without and with intravenous gadolinium contrast material utilizing the departmental epidural abscess protocol. 16 mL of Clariscan was administered intravenously. COMPARISON: CT scan of the chest 08/22/2022 FINDINGS: Multiple images are degraded by patient motion which diminishes detail, and interpretation was made in light of this technical confine. MRI OF THE THORACIC SPINE ALIGNMENT, VERTEBRAE, MARROW, AND DISCS: There is mild exaggeration of the thoracic kyphosis without subluxation. Mild chronic multilevel loss of thoracic disc space height is noted. No retropulsion of bone. Heterogeneity of the marrow is noted on the sagittal T1-weighted images. Mild multilevel loss of thoracic disc space height. Scattered marginal spurring. At T9-T10, there is STIR bright signal within the anterior aspect of the disc space with STIR bright signal within the adjacent anterior T9 and T10 vertebral bodies. Minimal STIR bright signal withinthe anterior paraspinal soft tissues adjacent to the T9 and T10 vertebral bodies is noted. No definite fluid collection. CORD: There is no compression of the thoracic spinal cord. No definite epidural fluid collection. PARASPINAL TISSUES: See above. Small bilateral pleural effusions. MRI OF THE LUMBAR SPINE ALIGNMENT, VERTEBRAE, MARROW, AND DISCS: No significant subluxation is noted. The lumbar vertebral bodies are normal in height. Heterogeneity of the marrow is noted on the sagittal T1-weighted images. Severe loss of height of L3-L4 and L4-L5. The remainder of the lumbar discs are at least mildly diminished in height. Mild left posterior Modic type I endplate change at L4-L5. Marginal osteophytes and facet arthroses are present at multiple levels. CONUS: The visualized lower thoracic cord is unremarkable, in the conus terminates at approximatelyL1. No epidural fluid collection or abnormal leptomeningeal enhancement. PARASPINAL TISSUES: No acute retroperitoneal abnormality. Patchy T2 bright signal within the posterior paraspinal muscles. The presacral soft tissues are unremarkable. L1-L2: Concentric disc-osteophyte complex with a superimposed right paracentral- subarticular disc protrusion. Mild-moderate right central canal narrowing with crowding of the traversing right L2 nerve roots. Mild right and mild left foraminal narrowing. L2-L3: Concentric disc-osteophyte complex and mild facet arthrosis. Small right facet joint effusion. Mild central canal narrowing. Mild-moderate right and mild left foraminal narrowing. L3-L4: Concentric disc-osteophyte complex and facet arthrosis. Small right facet joint effusion. Moderate central canal stenosis. Mild right and moderate left foraminal narrowing. L4-L5: Concentric disc-osteophyte complex and facet arthrosis. Moderate central canal stenosis. Mild-moderate right and moderate-severe left foraminal stenosis. L5-S1: A broad-based posterior disc bulge and facet arthrosis. No significant central canal narrowing. Moderate right and no left foraminal stenosis. IMPRESSION: 1. Motion-degraded examination of the thoracic and lumbar spine. 2. No thoracic or lumbar epidural fluid collection. No thoracic cord compression or cauda equina impingement. 3. STIR bright signal is present within the anterior aspect of the T9-T10 disc space with mild T2 bright signal within the adjacent T9 and T10 vertebral bodies and ventral paraspinal soft tissues. Although the findings could be related to degenerative change, osteomyelitis/discitis can give a similar appearance and should be strongly considered. 4. No evidence of osteomyelitis/discitis of the lumbar spine. 5. Degenerative changes of the lumbar spine with central canal and foraminal narrowing as detailed above. These findings can be correlated with the patient's symptoms and neurological examination. 6. Patchy T2 bright signal within the lumbar posterior paraspinal musculature, which may be due to myositis. 7. Heterogeneous marrow, which may be due to heterogeneous red marrow transformation or osteoporosis. A preliminary report was issued to the emergency room by the ad service 10/11/2022 at 10:33 PM. WSN: [id number] Ordering Physician: Casa Rao Dictated By: Diego Georges MD Dictated Date/Time: 10/12/22 9:41 am Reviewed By: Diego Georges MD Signed By: Diego Georges MD Signed Date/Time: 10/12/22 9:41 am Transcribed By: JAIME Transcribed Date/Time: 10/12/22 9:17 am * Exam Date Time Procedure Performing Provider Status 10/11/22 3:08 PM MRI Exam Not Completed Neuro Linwood Whitaker; Auth (Verified) Notes: (MRI Exam Not Completed Neuro) Reason For Exam: Epidural abscess;Other: RESULT: MRI Exam Not Completed Neuro MRI Thoracic Spine W/O Contrast, MRI Exam Not Completed Neuro Refer to EMR; Hx of Present Illness: Back pain. TECHNIQUE: MRI of the thoracic and lumbar spine was attempted, though only nondiagnostic localizer sequences were obtained. COMPARISON: CT chest, 08/22/2022. FINDINGS: Nondiagnostic localizer sequences were obtained through the entire spine demonstrating normal height, curvature, and alignment. There is multilevel disc space narrowing. The spinal cord and spinal canal cannot be accurately assessed on these images. There is suspected multilevel canal stenosis in the cervical spine and lower lumbar spine from disc osteophyte and posterior ligamentous thickening, as well as facet spurring in the lower lumbar spine. IMPRESSION: Nondiagnostic exam with only a localizer sequences obtained. If clinically indicated, repeat exam with patient sedation can be obtained. WSN: [id number] Ordering Physician: Casa Rao Dictated By: Barbara Boykin MD Dictated Date/Time: 10/11/22 4:16 pm Reviewed By: Barbara Boykin MD Signed By: Barbara Boykin MD Signed Date/Time: 10/11/22 4:16 pm Transcribed By: JAIME Transcribed Date/Time: 10/11/22 4:10 pm * Exam Date Time Procedure Performing Provider Status 10/11/22 3:15 PM MRI Thoracic Spine W/O Contrast Linwood Haas; Modified Notes: (MRI Thoracic Spine W/O Contrast) Reason For Exam: Epidural abscess;Other: RESULT: MRI Thoracic Spine W/O Contrast MRI Thoracic Spine W/O Contrast, MRI Exam Not Completed Neuro Refer to EMR; Hx of Present Illness: Back pain. TECHNIQUE: MRI of the thoracic and lumbar spine was attempted, though only nondiagnostic localizer sequences were obtained. COMPARISON: CT chest, 08/22/2022. FINDINGS: Nondiagnostic localizer sequences were obtained through the entire spine demonstrating normal height, curvature, and alignment. There is multilevel disc space narrowing. The spinal cord and spinal canal cannot be accurately assessed on these images. There is suspected multilevel canal stenosis in the cervical spine and lower lumbar spine from disc osteophyte and posterior ligamentous thickening, as well as facet spurring in the lower lumbar spine. IMPRESSION: Nondiagnostic exam with only a localizer sequences obtained. If clinically indicated, repeat exam with patient sedation can be obtained. WSN: [id number] Ordering Physician: Casa Rao Dictated By: Barbara Boykin MD Dictated Date/Time: 10/11/22 4:16 pm Reviewed By: Barbara Boykin MD Signed By: Barbara Boykin MD Signed Date/Time: 10/11/22 4:16 pm Transcribed By: JAIME Transcribed Date/Time: 10/11/22 4:10 pm * Exam Date Time Procedure Performing Provider Status 10/11/22 10:48 AM Chest Portable Pricilla Laird; Auth (Verified) Notes: (Chest Portable) Reason For Exam: Shortness of Breath RESULT: Chest Portable Chest Portable Reason: Shortness of Breath; Clinical Question(s): Pneumonia COMPARISON: Multiple priors, most recent CT chest 08/22/2022 FINDINGS: LINES AND TUBES: None. LUNGS AND PLEURA: No focal consolidation. Normal pulmonary vascularity. No pleural effusion. No pneumothorax. HEART, MEDIASTINUM AND GREER: Unchanged cardiomediastinal silhouette. BONES AND SOFT TISSUES: No acute abnormality. IMPRESSION: No acute abnormality. I have personally reviewed the images and I agree with this report. WSN: [id number] Ordering Physician: Casa Rao Dictated By: Dinah Devi MD Dictated Date/Time: 10/11/22 11:12 a Reviewed By: Lucero Bland MD Signed By: Lucero Bland MD Signed Date/Time: 10/11/22 11:17 am Transcribed By: JAIME Transcribed Date/Time: 10/11/22 11:08 am Vital Signs Most recent to oldest [Reference Range]: 1 2 3 Height 178 cm (10/20/22 6:36 AM) 178 cm (10/19/22 9:16 PM) 178 cm (10/19/22 5:34 AM) Weight 79.8 kg (10/16/22 9:41 AM) Oxygen Saturation [94-100 %] 98 % (10/20/22 6:36 AM) 98 % (10/19/22 9:16 PM) 98 % (10/19/22 3:00 PM) Pulse Rate [55-90 bpm] 66 bpm (10/20/22 6:36 AM) 70 bpm (10/19/22 9:16 PM) 115 bpm *H* (10/19/22 3:00 PM) Blood Pressure [90-138/55-84 mm Hg] 149/49mm Hg *H* (10/20/22 6:36 AM) 162/70mm Hg *H* (10/19/22 9:16 PM) 119/78mm Hg (10/19/22 3:00 PM) Respiratory Rate [16-30 br/min] 18 br/min (10/20/22 6:36 AM) 18 br/min (10/19/22 9:16 PM) 17 br/min (10/19/22 3:00 PM) Temperature [96.8-100.4 DegF] 97.3 DegF (10/20/22 6:36 AM) 97.9 DegF (10/19/22 9:16 PM) 97.6 DegF (10/19/22 3:00 PM) Liters per Minute 6 L/min (10/18/22:23 AM) Mode of Delivery (Oxygen) Room air (10/20/22 6:36 AM) Room air (10/19/22 9:16 PM) Room air (10/19/22 3:00 PM) Blood pressure sites Arm, right (10/20/22 6:36 AM) Arm, right (10/19/22 9:16 PM) Arm, left (10/19/22 3:00 PM) Temperature Route Oral (10/20/22 6:36 AM) Oral (10/19/22 9:16 PM) Oral (10/19/22 3:00 PM) Social History Social History Type Response Smoking Status Former smoker; Type: Cigarettes; Started at age: 9; Stopped at age: 29; entered on: 08/25/14 Sex Endoscopy study * Event Display: GG EGD Please click on pdf link to open report Consult note * Zoraida AUGUSTE, Rich: PERFORM Event Display: Consult Authored Date: Patient: ??MARYAM MIMS ? Age:??72 Years?Sex:??Male?:??1950?? 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 Patient states this began October 08 in the afternoon wherein the pain was acute, localized and persistent. He rates it 10/10 in intensity. Non-radiating. Alleviated with laying down/staying still. He had no radiating pain, numbness of extremities nor changes in bowel or bladder function. He went to [facility]/Sunday morning wherein he states they did CT and discharged on steroids (prednisone). He states he got no relief from the steroids and things only got worse. He then developed pain of his left wrist and the back pain was unbearable and he was bedbound which prompted him to come to ED for further evaluation. In the ED, patient was afebrile and not in shock. He had a leukocytosis of 23 and ESR/CRP of 60/9.5. His MRI was done which required repetition and showed significant findings on STIR showing bright signal in anterior aspect of T9-T10 disc space and milder findings on T2 within adjacent T9 and T10 vertebral bodies and ventral paraspinal soft tissues. These were concerning for either Osteomyelitis or degenerative changes. Hospital course complicated bydevelopment of MRSA bacteremia. ? Review of Systems 14 systems fully reviewed and negative aside from what is listed above Objective Vital Signs?? Temperature: 98.2 DegF (10/12/22 11:49:00) Temperature Route: Oral (10/12/22 11:49:00) Pulse Rate:??110 bpm??High (10/12/22 11:49:00) Respiratory Rate: 18 br/min (10/12/22 12:29:00) Systolic Blood Pressure: 108 mm Hg (10/12/22 11:49:00) Diastolic Blood Pressure: 63 mm Hg (10/12/22 11:49:00) Blood pressure sites: Arm, right (10/12/22 11:49:00) Mean Arterial Pressure: 78 mm Hg (10/12/22 11:49:00) Pulse Pressure: 45 mm Hg (10/12/22 11:49:00) Oxygen Saturation: 95 % (10/12/22 11:49:00) Mode of Delivery (Oxygen): Room air (10/12/22 11:49:00) Early Warning Score: 4 (10/12/22 12:29:43) ?? Pain Scores 1 - 10 Pain Scale Score: 10 (04:48) ?? Intake/Output? 10/12 02:02 0504 07:00 0503 07:00 0502 07:00 05/01 07:00 ?? 10/12 15:37 0504 15:37 0504 06:59 05/03 06:59 05 06:59 Intake ?400 ?100 ?300 ?0 ?0 Output ?400 ?400 ?0 ?0 ?0 Net Total ?0 ? -300 ?300 ?0 ?0 ?? Precautions No Precautions documented.? Chari Coma Scale Chari Coma Score: 15 (10/11/22 10:19:00) Motor Response-Adult: Obeys commands (10/11/22 10:19:00) Response Eye Opening: Spontaneously (10/11/22 10:19:00) Verbal Response-Adult: Oriented and converses (10/11/22 10:19:00) ?? Therapeutic Activity Therapeutic Activities/Mobility/Balance?? No qualifying data available ?? Physical Exam Constitutional: Alert, No acute Distress. Average Weight Mental Status: Oriented to person, place and time. Head: Normocephalic. Atraumatic Eyes: Pupils are equal, round and reactive to light. Extraocular muscles intact. Ear, Nose and Throat: Poor dentition. No thrush or posterior erythema. Oropharynx clear, mucous membranes moist. Ears and nose without masses, lesions or deformities. Trachea midline. Neck: Supple, Full range of motion. No JVD or LAD Respiratory: Clear to auscultation. No wheezing, crackles,??rales or rhonchi. Cardiovascular:?? Irregular rhythm. Systolic murmur. S1 S2. No??rubs or gallops. Pulses intact Gastrointestinal: Abdomen soft, non-tender, non-distended. No rebound or guarding. Normal bowel sounds. Genitourinary: No costovertebral angle tenderness. Neurologic: Cranial nerves II-XII grossly intact. No focal neurological deficits.??Moves all extremities spontaneously. Sensation intact bilaterally. Skin: Diffuse area of non-blanching erythema with mild scattered lichenification and scaling skin. No rashes or lesions. No petechiae or purpura.?? Musculoskeletal: Tenderness on palpation of thoracic spine. Strength 5/5. No cyanosis or clubbing.??Normal range of motion. Heme/Lymphatics/Immun: Palpation of neck reveals no swelling or tenderness of neck nodes. Psychiatric: Normal mood and affect ?? Culture/Event_id: ?Blood Culture, Second Order/[id number]?? Collect date: ?10/11/22 10:47 ? Result Status: ?Preliminary Result Date: ?10/12/22 03:35? SPECIMEN DESCRIPTION : BLOOD ??LHAND SPECIAL REQUESTS : NONE CULTURE : GRAM POSITIVE COCCI REPORT STATUS : ?? PRELIMINARY REPORT ? Culture/Event_id: ?Blood Culture/[id number]?? Collect date: ?10/11/22 10:47 ? Result Status: ?Preliminary Result Date: ?10/12/22 03:24? SPECIMEN DESCRIPTION : BLOOD ??LAC SPECIAL REQUESTS : CRITICAL VALUE CALLED AND VERIFIED BY READBACK FOR: GRAM POSITIVE COCCI ? TO [id number], ED, 10/12 AT 0142 BY TECH [id number] CULTURE : GRAM POSITIVE COCCI ?S. aureus was identified by multiplex PCR. mecA detected. Due to the ? presence of the mecA gene, this isolate should be considered resistant ? to methicillin (MRSA). REPORT STATUS : ?? PRELIMINARY REPORT ?? 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 Work up demonstrating vertebral osteomyelitis of the thoracic spine and MRSA bacteremia. Likely secondary to his dermatologic condition and also being on Rituximab making him immunocompromised. High risk for decompensation in the setting of being on an immunomodulator like Rituximab which is??likely why he??unfortunately got this bloodstream infection. Given the??severity of the infection and beingimmunocompromised; would opt to treat with Vancomycin and Cefazolin ??which has been shown to have fewer treatment failures and also with shorter BSI durations. More concerning, however, is physical examination demonstrating what appears to be a new murmur and very irregular beats??and TTE demonstrated ectopic/irregular beats which actually made the study of suboptimal quality. This, compared to his EKG yesterday which was normal, makes us concerned for possible AV yumiko involvement and would really benefit from repeat EKG and also evaluation for KARINA. ?? https://www.ncbi.nlm.nih.gov/pmc/articles/TKE7181867/ ?? Diagnoses Bacteremia ??(R78.81) Immunocompromised ??(D84.9) Osteomyelitis of vertebra, thoracic region ??(M46.24) Sepsis due to methicillin resistant Staphylococcus aureus ??(A41.02) Severe sepsis ??(R65.20) ?? Recommendations Vancomycin (pharmacy dosed) Cefazolin 2 grams every 8 hours Repeat EKG KARINA Repeat blood cultures ?? Discussed with Dr. Santos Discussed with Dr. Yates ?? Rich Conway MD Infectious Disease Fellow, PGY-5 Please reach out via [employer] Histories Allergies Allergies ?(Active and Proposed Allergies Only) lisinopril? (Severity: Unknown severity, Onset: Unknown) ?Reactions: Nausea penicillin? (Severity: Unknown severity, Onset: Unknown) ?Comments: Rash ?? Past Medical History/Problem List Active Problems??(15) Borderline anemia Coronary artery calcification seen on CT scan Coronary artery disease Dyshidrotic eczema hands Dyspnea on exertion Erectile dysfunction Esophagitis Family history of prostate cancer brother Hypercholesterolemia Hypertension Moderate drinker of alcohol Nasal congestion Osteoarthritis of right knee Thoracic aortic aneurysm Tubular adenoma ?? Past Surgical History EGD - Esophagogastroduodenoscopy: 06/29/19 History of right total knee replacement: 08/16/17 Colonoscopy, flexible, proximal to splenic flexure; diagnostic, with or without collection of specimen(s) by brushing or washing, with or without colon decompression (separate procedure): 08/10/17 EGD and colonoscopy: 05/13/12 History of tonsillectomy: 1954 EGD 15 yrs ago ?? Social History Alcohol Details:??Use: Current. ??Frequency: Daily. ??Type: Beer. ??Other: Lately, no drinking beer during the week and on weekends 6-8 beers per day.. 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 Exercise Details:??Regular exercise: Yes. ??Exercise frequency: 3-4 times/week. ??Exercise type: Walking. Home/Environment Details:??Living situation: Home/Independent. ??Lives with: Spouse. Nutrition/Health Details:??Diet: Regular. ??Caffeine intake amount: one coffee daily. Tobacco Details:??Former smoker, Type: Cigarettes. ??Started at age: 9 Years. ??Stopped at age: 29 Years. Electronic Cigarette/Vaping Details:??Electronic Cigarette Use: Never. ?? Psychosocial History ?? Family History Father: Depression; Suicide Brother (Ryland): Cancer of prostate Other (paternal uncle): Cancer of prostate ?? Travel History Travel Outside [place]: No ?? Functional Assessments Ambulatory devices needed: None Medications Home Medications Amlodipine (amLODIPine 10 mg oral tablet)?10?Milligram?1?tablet?By Mouth?Daily Aspirin (aspirin 81 mg oral delayed release tablet)?81?Milligram?1?tablet?By Mouth?Daily?for 30?Days Atorvastatin (atorvastatin 40 mg oral tablet)?1?tab(s)?40?Milligram?By Mouth?Daily?for 30?Days?replaces Simvastatin Bisoprolol-Hydrochlorothiazide (bisoprolol-hydrochlorothiazide 10 mg-6.25 mg oral tablet)?1?tab(s)?By Mouth?Daily Cyanocobalamin (Vitamin B12 1000 mcg oral tablet)?1?tab(s)?1,000?Microgram?By Mouth?Daily Multivitamin (Super B Complex)?1?tab(s)?By Mouth?Daily Multivitamin With Minerals (multivitamin with minerals Multiple Vitamins with Minerals oral tablet)?1?tab(s)?By Mouth?Daily Omeprazole (omeprazole 20 mg oral enteric coated capsule)?1?capsule?20?Milligram?By Mouth?Daily Triamcinolone Topical (triamcinolone 0.025% topical cream)?See Instructions?apply topically 2times a day for 14 days. ?? Inpatient Medications Medications (21) Active SCHEDULED: (10) Aspirin 81 mg EC Tablet (aspirin 81 mg oral delayed release tablet) ??81 mg, By Mouth, Daily Atorvastatin 40 mg Tablet (atorvastatin 40 mg oral tablet) ??40 mg, By Mouth, Daily Bisoprolol 5 mg Tablet (bisoprolol 5 mg oral tablet) ??5 mg, By Mouth, Daily CeFAZolin 2 Gm Inj (ceFAZolin Inj) ??2 Gm, IV Push, Every 8 hours Enoxaparin 40 mg Inj (Enoxaparin Inj) ??40 mg 0.4 mL, Subcutaneous Injection, Daily Magnesium Oxide 400 mg Tablet (magnesium oxide 400 mg oral tablet) ??400 mg, By Mouth, 2 times a day NaCl 0.9% Flush 3ml (NaCL 0.9% Flush) ??3 mL, IV Push, Every 8 hours Triamcinolone 0.025% Cream (Triamcinolone 0.025% Topical) ??1 application, Topically, 2 times a day Vancomycin 1500 mg Inj (Vancomycin IVPB) ??1,500 mg, IVPB, Every 24 hours Vitamin B-12 ??1000 mcg Tablet (cyanocobalamin 1000 mcg oral tablet) ??1,000 mcg, By Mouth, Daily CONTINUOUS: (1) D5%LR (1000 mL) Cont IV 1,000 mL (D5%/LR 1,000 mL) ??1,000 mL, IV Infusion, 125 mL/hr PRN: (10) Acetaminophen 325 mg Tablet (Acetaminophen Tablet) ??650 mg, By Mouth, Every 4 hours Dextromethorphan-Guaifenesin 20 mg-200 mg/10 mL Liqu UD (Robitussin DM Liquid) ??10 mL, By Mouth, Every 4 hours Melatonin 3 mg Tablet (Melatonin Tablet) ??3 mg, By Mouth, Daily at bedtime MorPHINE 2 mg Inj Syringe (MorPHINE Inj) ??2 mg, IV Push Slowly, Every 6 hours NaCl 0.9% Flush 3ml (NaCL 0.9% Flush) ??3 mL, IV Push, Every 8 hours Ondansetron 2mg/mL Inj (2mL Vial) (Ondansetron Inj) ??4 mg, IV Push, Every 6 hours OxyCODONE 5 mg IR Tablet (oxyCODONE 5 mg oral tablet) ??5 mg, By Mouth, Every 6 hours Polyethylene Glycol 17 Gm Powder (MiraLax Powder) ??17 Gm 1 pack/packet, By Mouth, Daily Senna 8.6 mg / Docusate 50 mg tablet (Docusate/Senna Tablet) ??1 tablet, By Mouth, 2 times a day Simethicone 80 mg Chewable Tablet (Simethicone Tablet) ??80 mg, Chew, 3 times a day ?? 72 Hour Antibiotic History Active Antibiotics Calendar Day Last Administered First Administered ceFAZolin??2 Gm, IV Push, Every 8 hours ?1 10/12/2022 15:13 10/12/2022 15:13 ?? Stopped Antibiotics Stop Date/Time Last Administered First Administered Ceftriaxone??2 Gm, 100 mL/hr, IVPB, Every 24 hours 10/12/2022 14:12 10/12/2022 09:44 10/12/2022 09:44 Levofloxacin??500 mg, 100 mL, 100 mL/hr, IVPB, Every 24 hours 10/12/2022 08:23 10/12/2022 05:01 10/12/2022 05:01 Vancomycin??1 Gm, 200 mL, 200 mL/hr, IVPB, Once 10/12/2022 02:43 10/12/2022 02:35 10/12/2022 02:35 ?? Vaccinations and Immunoprophylaxis pneumococcal 13-valent vaccine: 0.5 mL (05/16/16 12:24:00) pneumococcal 23-valent vaccine: 0.5 mL (05/18/17 09:35:00) SARS-CoV-2 (COVID-19) mRNA BNT-162b2 vac: 0.3 Unknown (03/11/21 08:00:00) tetanus/diphtheria/pertussis, acel(Tdap): 0.5 mL (10/27/15 12:56:00) Tet/Diphth/Acel, Pertussis (oldterm): 0.5 mL (12/22/08 15:00:00) Tetanus Toxoid Vaccine (oldterm): 0.5 mL (07/12/98 11:48:00) Results Recent Labs BLOOD COUNT & DIFF WBC 14.4 k/mm3 (High)?? 10/12/2022 09:12 RBC 3.94 m/mm3 (Low)?? 10/12/2022 09:12 Hgb 11.6 Gm/dL (Low)?? 10/12/2022 09:12 Hct 34.6 % (Low)?? 10/12/2022 09:12 MCV 87.8 femtoliters ()?? 10/12/2022 09:12 MCH 29.4 pg ()?? 10/12/2022 09:12 MCHC 33.5 g/dL ()?? 10/12/2022 09:12 Platelet Count 205 k/mm3 ()?? 10/12/2022 09:12 RDW-SD 42.2 femtoliters ()?? 10/12/2022 09:12 MPV 9.4 femtoliters ()?? 10/12/2022 09:12 Nucleated RBC (Automated) 0.0 #/100 WBC'S ()?? 10/12/2022 09:12 Abs. NRBC 0.0 k/mm3 ()?? 10/12/2022 09:12 Abs. Neut 19.4 k/mm3 (High)?? 10/11/2022 10:47 Abs. Lymph 1.1 k/mm3 ()?? 10/11/2022 10:47 Abs. [place] 1.7 k/mm3 (High)?? 10/11/2022 10:47 Abs. Eo 0.6 k/mm3 (High)?? 10/11/2022 10:47 Abs. Baso 0.1 k/mm3 ()?? 10/11/2022 10:47 Neut % 83.7 % (High)?? 10/11/2022 10:47 Lymph % 4.7 % (Low)?? 10/11/2022 10:47 [place] % 7.3 % ()?? 10/11/2022 10:47 Eos % 2.4 % ()?? 10/11/2022 10:47 Baso % 0.6 % ()?? 10/11/2022 10:47 Imm Gran 1.3 % ()?? 10/11/2022 10:47 Abs. Imm Gran 0.3 k/mm3 ()?? 10/11/2022 10:47 ?? CARDIAC Nt-Probnp 1544 pg/mL (High)?? 10/11/2022 10:47 High Sensitivity Troponin (HSTnT) 15 ng/L ()?? 10/11/2022 10:47 ?? CHEM GENERAL Sodium 131 mmol/L (Low)?? 10/12/2022 09:14 Potassium 4.0 mmol/L ()?? 10/12/2022 09:14 Chloride 94 mmol/L (Low)?? 10/12/2022 09:14 Bicarbonate Level 25 mmol/L ()?? 10/12/2022 09:14 Anion Gap 12 ()?? 10/12/2022 09:14 Glucose Level 95 mg/dL ()?? 10/12/2022 09:14 BUN 17 mg/dL ()?? 10/12/2022 09:14 Creatinine-Blood 0.8 mg/dL ()?? 10/12/2022 09:14 Estimated GFR Creatinine 95 ML/MIN/1.73 M2 ()?? 10/12/2022 09:14 Calcium 8.3 mg/dL (Low)?? 10/12/2022 09:14 Magnesium 1.3 mg/dL (Low)?? 10/12/2022 09:14 Protein, Total 5.5 Gm/dL (Low)?? 10/12/2022 09:14 Albumin 3.1 Gm/dL (Low)?? 10/12/2022 09:14 AG Ratio 1.5 ()?? 10/11/2022 10:47 Alkaline Phosphatase 70 units/L ()?? 10/12/2022 09:14 AST (SGOT) 29 units/L ()?? 10/12/2022 09:14 ALT (SGPT) 17 units/L ()?? 10/12/2022 09:14 Bilirubin, Total 0.4 mg/dL ()?? 10/12/2022 09:14 Bilirubin, Direct <0.2 mg/dL ()?? 10/12/2022 09:14 Bilirubin, Indirect Direct bilirubin is less than the measureable limit. Therefore, indirect mg/dL ()?? 10/12/2022 09:14 Lactate 1.4 mmol/L ()?? 10/12/2022 09:14 C-Reactive Protein 9.4 mg/dL (High)?? 10/11/2022 10:47 ?? HEME OTHER Sed Rate 63 mm/hr (High)?? 10/11/2022 10:47 Hold Blue Top SPECIMEN DISCARDED AFTER 4 HOURS. ()?? 10/11/2022 10:47 ?? UA/URINALYSIS Appear/Color, Urine YELLOW ()?? 10/11/2022 14:30 Specific [place], Urine 1.018 ()?? 10/11/2022 14:30 pH, Urine 6.0 ()?? 10/11/2022 14:30 Albumin, Urine TRACE (Abnormal)?? 10/11/2022 14:30 Glucose, Urine NEGATIVE ()?? 10/11/2022 14:30 Ketones, Urine NEGATIVE ()?? 10/11/2022 14:30 Bilirubin, Urine NEGATIVE ()?? 10/11/2022 14:30 Hemoglobin, Urine NEGATIVE ()?? 10/11/2022 14:30 Nitrite, Urine NEGATIVE ()?? 10/11/2022 14:30 Leukocyte, Urine NEGATIVE ()?? 10/11/2022 14:30 Urobilinogen NORMAL mg/dL ()?? 10/11/2022 14:30 WBC's, Urine <1 /HPF ()?? 10/11/2022 14:30 RBC's, Urine 1 /HPF ()?? 10/11/2022 14:30 Mucus SLIGHT /LPF ()?? 10/11/2022 14:30 Hold Urine Culture Testing available 48 hours from time of collection. ()?? 10/11/2022 14:30 ?? VIROLOGY COVID-19 PCR Specimen Source NASAL ()?? 10/11/2022 10:47 COVID-19 PCR Result NEGATIVE ()?? 10/11/2022 10:47 * Tony AUGUSTE, Moody A: PERFORM Event Display: Consult Authored Date: ATTENDING ADDENDUM: Patient evaluated and discussed with infectious disease fellow Dr Conway. ??Reviewed history, physical exam, and assessment. ??Agree with findings and recommendations. ??Patient with MRSA bacteremia in the setting of significant immunosuppression with complaints of back pain.?? MRI showed potential thoracic spine osteomyelitis and take into account the pain and that concomitant bacteremia, highly likely that this is truly infectious.?? The CT scan did not mention anything regarding the patient thoracic aortic aneurysm but then again the dedicated MRI would not have picked up the aorta all too well to comment on it.?? We were a little concerned when we saw the patient yesterday since not on ly that he have a new murmur but he also had significantly atypical rhythm with what appeared to beprocess.?? Because of this but we did request that EKG be repeated urgently since previous EKG from24 hours prior was completely normal.?? No EKG is showing frequent premature ventricular complexes.?? We are concerned about potential endocarditis and perhaps even complications are off.?? Would appear that cardiology was already talking about likely performing a KARINA and take into account these findings would suggest that we go down this road.?? Given immunosuppression and potential complications, will induce the patient with combination of vancomycin and cefazolin for quicker clearance of the bacteremia.?? Other recommendations as above.?? We will follow patient closely. History and physical note * Chastity Gilliam MD, Jacques A: PERFORM Event Display: History and Physical Hospital Authored Date: Patient: ??MIMS, MARYAM ? Age:??72 Years?Sex:??Male?:??1950?? Chief Complaint/Reason for Consultation Acute mid back pain History of Present Illness 72-year-old male with history of hypertension, hyperlipidemia, CAD, thoracic aortic aneurysm, erythrodermic psoriasis on immunotherapy with recent Humira injections 5 days ago presented with acute lower back pain over last week pain has been waxing and waning over the last week. ? Patient has had erythrodermic psoriasis since [place] time , manifesting as diffuse maculopapular rash sometimes all over his body, following with dermatology outpatient. ??He was prescribed Otezla (apremilast) 2 to 3 weeks ago and has been taking that regularly.?5 days ago had a Humira infusion. ? Over approximately last week he has had severe low back pain radiating to his bilateral flanks associated with shaking chills, reported no associated numbness or tingling , also no limb weakness reported, per patient has pedal edema and worsening of his erythrodermic rash. ??He was evaluated at [facility] days ago where his work-up included a CT scan and he was discharged on prednisone. ??He has had no improvement since that time. ??Overnight last night he developed left wrist pain and this morning found that his back pain was so severe he was unable to get out of bed and so calledEMS.? Patient has denied any chest pain, only difficult some breathing when trying to take deep breath due to the pain , he has no N/V/D or abdominal pain ?? Patient noted that he??has??acute urinary retention just happen since yesterday with reported difficulty passing urine requiring Gregory catheter placement at ED with 500cc urine out ?? AT ed patient is HD?? stable afebrile, hemogram with leukocytosis 23K, chemistry unremarkable, elevated ESR 60, CRP 9.5, further MRI lumber spine was not tolerated initially, fortunately he did have it completed with No acute cord compression or cauda equina however there?? signal is present within the anterior aspect of the T9-T10 disc space with mild T2 bright signal within the adjacent T9 and T10 vertebral bodies and ventral paraspinal soft tissues. Although the findings could be related to degenerative change, osteomyelitis/discitis ?? later blood cultures reported positive for GPC /staph patient was started on Vancomycin and Ceftriaxone for further management of bacteremia and possible discitis/osteomyelitis ? Review of Systems General: Patient is awake, reported?? chills and shaking Eye: No redness, no jaundice, no pain or discharge ENT: no nasal discharge or rhinorrhea Cardiovascular: no chest pain, no palpitation Pulmonary:?? dyspnea, no wheezing, no cough or??sputum GI: No abdominal pain, no nausea, no vomiting, no constipation or diarrhea : reported urinary retention for one day Extremities:increased LL?edema MSK sever lower back pain limiting his mobility Skin: worsening psoriasis rashes and lower limb pedal edema Neuro: Awake, alert, no focal weakness, no numbness or tingling Psych: No anxiety, denied any mood changes??. Objective ? Vital Signs?? Temperature: 98.2 DegF (10/12/22 11:49:00) Temperature Route: Oral (10/12/22 11:49:00) Pulse Rate:??110 bpm??High (10/12/22 11:49:00) Respiratory Rate: 18 br/min (10/12/22 11:49:00) Systolic Blood Pressure: 108 mm Hg (10/12/22 11:49:00) Diastolic Blood Pressure: 63 mm Hg (10/12/22 11:49:00) Blood pressure sites: Arm, right (10/12/22 11:49:00) Mean Arterial Pressure: 78 mm Hg (10/12/22 11:49:00) Pulse Pressure: 45 mm Hg (10/12/22 11:49:00) Oxygen Saturation: 95 % (10/12/22 11:49:00) Mode of Delivery (Oxygen): Room air (10/12/22 11:49:00) Early Warning Score: 4 (10/12/22 11:50:24) ? Intake/Output? 10/12 02:02 10/12 07:00 10/11 07:00 10/10 07:00 0501 07:00 ?? 10/12 12:07 10/12 12:07 10/12 06:59 10/11 06:59 10/10 06:59 Intake ?300 ?0 ?300 ?0 ?0 Output ?400 ?400 ?0 ?0 ?0 Net Total ? -100 ? -400 ?300 ?0 ?0 ? Physical Exam General: Awake, not in??distress, in pain Head and neck: Atraumatic, no neck swelling Eye: no injection or jaundice, EOMI. Cardiac: RRR, no murmurs, gallops or rubs, no S3 or S4. Pulmonary: Normal breathing sounds bilaterally with good air entery with??no wheezing or??rhonchi Abdominal: No tenderness or rebound tenderness, normal BS, no HSM Skin: diffuse erythematous scaly skin rashes overall the body Extremities:??B/L LL??edema, no varicose veins MSK tenderness on mid and ??lower back with decreased ROM Neuro: awake, alert oriented X3, no focal weakness. Psych: Not anxious Assessment/Plan 72-year-old male with history of hypertension, hyperlipidemia, CAD, thoracic aortic aneurysm, erythrodermic psoriasis on immunotherapy with recent Humira injections 5 days ago presented with acute lower back pain over last week pain has been waxing and waning over the last week, left wrist pain wasfound to have bacteremia with GPC/Staph and MRI imaging concerning for T9-10?? discitis/osteomyelitis ?? Acute lower back pain T9-10 Discitis/Osteomyelitis left wrist pain Staph bacteremia Patient ??with diffuse skin erythrodermic psoriasis with recent??Humira infusion 5 days ago presented with acute lower back pain and left wrist pain AT ed patient is HD?? stable afebrile but looking ill hemogram with leukocytosis 23K with left shift elevated ESR 60, CRP 9.5 further MRI lumber spine was not tolerated initially, fortunately he did have it completed with No acute cord compression or cauda equina however there?? signal is present within the anterior aspect of the T9-T10 disc space with mild T2 bright signal within the adjacent T9 and T10 vertebral bodies and ventral paraspinal soft tissues. Although the findings could be related to degenerative change, osteomyelitis/discitis later blood cultures reported positive for GPC /staph patient was started on Vancomycin and Ceftriaxone for further management of bacteremia and possiblediscitis/osteomyelitis ?? C/w Ceftriaxone and Vancomycin?? (penicillin allaergy) repeat blood cultures today 10/12 pain control morphine for sever pain??and ??oxycodone for moderate pain ECHO ordered for any endocarditis Left Wrist XR ordered ID consulted ?? Acute Urinary retention Patient noted that he??has??acute urinary retention just happen since yesterday with reported difficulty passing urine requiring Gregory catheter placement at ED with 500cc urine out patient has no saddle anaesthesia or lower limb weakness??nor numbness?? retention could be relegated to nerve compression versus due to sever pain and narcotics given ?? will need Voiding trial once pain controlled ?? 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 HTN HLD CAD AAA C/w ASA. statins avoid volume overload hold HCTZ and amlodipine given low SBP 100s bisoprolol 5 mg ordered ?? Code :Full DVT:??Lovenox OMN: Dispo: anticiapte patientn eeds 3-4 midnghts ? Histories Allergies Allergies ?(Active and Proposed Allergies Only) lisinopril? (Severity: Unknown severity, Onset: Unknown) ?Reactions: Nausea penicillin? (Severity: Unknown severity, Onset: Unknown) ?Comments: Rash ? Past Medical History/Problem List Active Problems??(15) Borderline anemia Coronary artery calcification seen on CT scan Coronary artery disease Dyshidrotic eczema hands Dyspnea on exertion Erectile dysfunction Esophagitis Family history of prostate cancer brother Hypercholesterolemia Hypertension Moderate drinker of alcohol Nasal congestion Osteoarthritis of right knee Thoracic aortic aneurysm Tubular adenoma ? Past Surgical History EGD - Esophagogastroduodenoscopy: 06/29/19 History of right total knee replacement: 08/16/17 Colonoscopy, flexible, proximal to splenic flexure; diagnostic, with or without collection of specimen(s) by brushing or washing, with or without colon decompression (separate procedure): 08/10/17 EGD and colonoscopy: 05/13/12 History of tonsillectomy: 1954 EGD 15 yrs ago ? Social History Alcohol Details:??Use: Current. ??Frequency: Daily. ??Type: Beer. ??Other: Lately, no drinking beer during the week and on weekends 6-8 beers per day.. 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 Exercise Details:??Regular exercise: Yes. ??Exercise frequency: 3-4 times/week. ??Exercise type: Walking. Home/Environment Details:??Living situation: Home/Independent. ??Lives with: Spouse. Nutrition/Health Details:??Diet: Regular. ??Caffeine intake amount: one coffee daily. Tobacco Details:??Former smoker, Type: Cigarettes. ??Started at age: 9 Years. ??Stopped at age: 29 Years. Electronic Cigarette/Vaping Details:??Electronic Cigarette Use: Never. ? Family History Father: Depression; Suicide Brother (Ryland): Cancer of prostate Other (paternal uncle): Cancer of prostate ? Medications Home Medications Amlodipine (amLODIPine 10 mg oral tablet)?10?Milligram?1?tablet?By Mouth?Daily Aspirin (aspirin 81 mg oral delayed release tablet)?81?Milligram?1?tablet?By Mouth?Daily?for 30?Days Atorvastatin (atorvastatin 40 mg oral tablet)?1?tab(s)?40?Milligram?By Mouth?Daily?for 30?Days?replaces Simvastatin Bisoprolol-Hydrochlorothiazide (bisoprolol-hydrochlorothiazide 10 mg-6.25 mg oral tablet)?1?tab(s)?By Mouth?Daily Cyanocobalamin (Vitamin B12 1000 mcg oral tablet)?1?tab(s)?1,000?Microgram?By Mouth?Daily Multivitamin (Super B Complex)?1?tab(s)?By Mouth?Daily Multivitamin With Minerals (multivitamin with minerals Multiple Vitamins with Minerals oral tablet)?1?tab(s)?By Mouth?Daily Omeprazole (omeprazole 20 mg oral enteric coated capsule)?1?capsule?20?Milligram?By Mouth?Daily Triamcinolone Topical (triamcinolone 0.025% topical cream)?See Instructions?apply topically 2times a day for 14 days. ? Results Recent Labs BLOOD COUNT & DIFF WBC 14.4 k/mm3 (High)?? 10/12/2022 09:12 RBC 3.94 m/mm3 (Low)?? 10/12/2022 09:12 Hgb 11.6 Gm/dL (Low)?? 10/12/2022 09:12 Hct 34.6 % (Low)?? 10/12/2022 09:12 MCV 87.8 femtoliters ()?? 10/12/2022 09:12 MCH 29.4 pg ()?? 10/12/2022 09:12 MCHC 33.5 g/dL ()?? 10/12/2022 09:12 Platelet Count 205 k/mm3 ()?? 10/12/2022 09:12 RDW-SD 42.2 femtoliters ()?? 10/12/2022 09:12 MPV 9.4 femtoliters ()?? 10/12/2022 09:12 Nucleated RBC (Automated) 0.0 #/100 WBC'S ()?? 10/12/2022 09:12 Abs. NRBC 0.0 k/mm3 ()?? 10/12/2022 09:12 Abs. Neut 19.4 k/mm3 (High)?? 10/11/2022 10:47 Abs. Lymph 1.1 k/mm3 ()?? 10/11/2022 10:47 Abs. [place] 1.7 k/mm3 (High)?? 10/11/2022 10:47 Abs. Eo 0.6 k/mm3 (High)?? 10/11/2022 10:47 Abs. Baso 0.1 k/mm3 ()?? 10/11/2022 10:47 Neut % 83.7 % (High)?? 10/11/2022 10:47 Lymph % 4.7 % (Low)?? 10/11/2022 10:47 [place] % 7.3 % ()?? 10/11/2022 10:47 Eos % 2.4 % ()?? 10/11/2022 10:47 Baso % 0.6 % ()?? 10/11/2022 10:47 Imm Gran 1.3 % ()?? 10/11/2022 10:47 Abs. Imm Gran 0.3 k/mm3 ()?? 10/11/2022 10:47 ?? CARDIAC Nt-Probnp 1544 pg/mL (High)?? 10/11/2022 10:47 High Sensitivity Troponin (HSTnT) 15 ng/L ()?? 10/11/2022 10:47 ?? CHEM GENERAL Sodium 131 mmol/L (Low)?? 10/12/2022 09:14 Potassium 4.0 mmol/L ()?? 10/12/2022 09:14 Chloride 94 mmol/L (Low)?? 10/12/2022 09:14 Bicarbonate Level 25 mmol/L ()?? 10/12/2022 09:14 Anion Gap 12 ()?? 10/12/2022 09:14 Glucose Level 95 mg/dL ()?? 10/12/2022 09:14 BUN 17 mg/dL ()?? 10/12/2022 09:14 Creatinine-Blood 0.8 mg/dL ()?? 10/12/2022 09:14 Estimated GFR Creatinine 95 ML/MIN/1.73 M2 ()?? 10/12/2022 09:14 Calcium 8.3 mg/dL (Low)?? 10/12/2022 09:14 Magnesium 1.3 mg/dL (Low)?? 10/12/2022 09:14 Protein, Total 5.5 Gm/dL (Low)?? 10/12/2022 09:14 Albumin 3.1 Gm/dL (Low)?? 10/12/2022 09:14 AG Ratio 1.5 ()?? 10/11/2022 10:47 Alkaline Phosphatase 70 units/L ()?? 10/12/2022 09:14 AST (SGOT) 29 units/L ()?? 10/12/2022 09:14 ALT (SGPT) 17 units/L ()?? 10/12/2022 09:14 Bilirubin, Total 0.4 mg/dL ()?? 10/12/2022 09:14 Bilirubin, Direct <0.2 mg/dL ()?? 10/12/2022 09:14 Bilirubin, Indirect Direct bilirubin is less than the measureable limit. Therefore, indirect mg/dL ()?? 10/12/2022 09:14 Lactate 1.4 mmol/L ()?? 10/12/2022 09:14 C-Reactive Protein 9.4 mg/dL (High)?? 10/11/2022 10:47 ?? HEME OTHER Sed Rate 63 mm/hr (High)?? 10/11/2022 10:47 Hold Blue Top SPECIMEN DISCARDED AFTER 4 HOURS. ()?? 10/11/2022 10:47 ?? UA/URINALYSIS Appear/Color, Urine YELLOW ()?? 10/11/2022 14:30 Specific [place], Urine 1.018 ()?? 10/11/2022 14:30 pH, Urine 6.0 ()?? 10/11/2022 14:30 Albumin, Urine TRACE (Abnormal)?? 10/11/2022 14:30 Glucose, Urine NEGATIVE ()?? 10/11/2022 14:30 Ketones, Urine NEGATIVE ()?? 10/11/2022 14:30 Bilirubin, Urine NEGATIVE ()?? 10/11/2022 14:30 Hemoglobin, Urine NEGATIVE ()?? 10/11/2022 14:30 Nitrite, Urine NEGATIVE ()?? 10/11/2022 14:30 Leukocyte, Urine NEGATIVE ()?? 10/11/2022 14:30 Urobilinogen NORMAL mg/dL ()?? 10/11/2022 14:30 WBC's, Urine <1 /HPF ()?? 10/11/2022 14:30 RBC's, Urine 1 /HPF ()?? 10/11/2022 14:30 Mucus SLIGHT /LPF ()?? 10/11/2022 14:30 Hold Urine Culture Testing available 48 hours from time of collection. ()?? 10/11/2022 14:30 ?? VIROLOGY COVID-19 PCR Specimen Source NASAL ()?? 10/11/2022 10:47 COVID-19 PCR Result NEGATIVE ()?? 10/11/2022 10:47 ? Abnormal Labs ?? BLOOD COUNT & DIFF ??Abs. NRBC ??0.0 k/mm3 () ??10/12/2022 09:12 ??Hct ??34.6 % (Low) ??10/12/2022 09:12 ??Hgb ??11.6 Gm/dL (Low) ??10/12/2022 09:12 ??Nucleated RBC (Automated) ??0.0 #/100 WBC'S () ??10/12/2022 09:12 ??RBC ??3.94 m/mm3 (Low) ??10/12/2022 09:12 ??RDW-SD ??42.2 femtoliters () ??10/12/2022 09:12 ??WBC ??14.4 k/mm3 (High) ??10/12/2022 09:12 ? CHEM GENERAL ??Albumin ??3.1 Gm/dL (Low) ??10/12/2022 09:14 ??Calcium ??8.3 mg/dL (Low) ??10/12/2022 09:14 ??Chloride ??94 mmol/L (Low) ??10/12/2022 09:14 ??Estimated GFR Creatinine ??95 ML/MIN/1.73 M2 () ??10/12/2022 09:14 ??Magnesium ??1.3 mg/dL (Low) ??10/12/2022 09:14 ??Protein, Total ??5.5 Gm/dL (Low) ??10/12/2022 09:14 ??Sodium ??131 mmol/L (Low) ??10/12/2022 09:14 ? UA/URINALYSIS ??Albumin, Urine ??TRACE (Abnormal) ??10/11/2022 14:30 ??Appear/Color, Urine ??YELLOW () ??10/11/2022 14:30 ??Bilirubin, Urine ??NEGATIVE () ??10/11/2022 14:30 ??Glucose, Urine ??NEGATIVE () ??10/11/2022 14:30 ??Hemoglobin, Urine ??NEGATIVE () ??10/11/2022 14:30 ??Hold Urine Culture ??Testing available 48 hours from time of collection. () ??10/11/2022 14:30 ??Ketones, Urine ??NEGATIVE () ??10/11/2022 14:30 ??Leukocyte, Urine ??NEGATIVE () ??10/11/2022 14:30 ??Mucus ??SLIGHT /LPF () ??10/11/2022 14:30 ??Nitrite, Urine ??NEGATIVE () ??10/11/2022 14:30 ??Urobilinogen ??NORMAL mg/dL () ??10/11/2022 14:30 ? Note: Critical results are displayed in red. ? EKG study * Event Display: ECG 12-Lead Authored Date: Please click on pdf link to open report * Event Display: ECG 12-Lead Authored Date: Ventricular Rate: 100 BPM Atrial Rate: 100 BPM P-R Interval: 134 ms QRS Duration: 84 ms Q-T Interval: 336 ms QTC Calculation(Bazett): 433 ms P [place]: 42 degrees R [place]: -11 degrees T [place]: 35 degrees Sinus rhythm with frequent Premature ventricular complexes Otherwise normal ECG When compared with ECG of 11-OCT-2022 10:25, Premature ventricular complexes are now Present Confirmed by SAMANTHA BRICE ([id number]) on 10/12/2022 6:12:50 PM [place]: SAMANTHA BRICE * Event Display: ECG 12-Lead Authored Date: Please click on pdf link to open report * Event Display: ECG 12-Lead Authored Date: Ventricular Rate: 89 BPM Atrial Rate: 89 BPM P-R Interval: 150 ms QRS Duration: 82 ms Q-T Interval: 332 ms QTC Calculation(Bazett): 403 ms P [place]: 61 degrees R [place]: -3 degrees T [place]: 30 degrees Normal sinus rhythm Normal ECG When compared with ECG of 23-APR-2020 13:52, No significant change was found Confirmed by SONI RICHARDSON MD ([id number]) on 10/11/2022 3:12:31 PM [place]: SONI RICHARDSON MD Heart * Event Display: Echocardiogram - Complete Authored Date: [id number] Transthoracic Echocardiography Report (TTE) Patient Demographics Patient Name MARYAM MIMS Date of Study 10/12/2022 Corporate Gender Male Facility Race Ethnicity Date of 1950 Height: 69 inches Age 72 year(s) Weight: 180 pounds Accession Number [id number] BSA: 1.98 m2 Room Number D32X BMI: 26.58 kg/m2 Referring Physician Not on Staff Interpreting Keeley Salgado MD Referring MD Physician CHASTITY Belle Metal Expediter Randy Jang [facility] Indications Bacteremia. Clinical History BACK / WHOLE BODY PAIN DIZZINESS WEAKNESS POSSIBLE INFECTION Study Data Type of Study TTE procedure:Echo Complete-Doppler, Colorflow, M-Mode. Study Date10/12/2022 Start Time: 10:01 AM Study Location: [facility] [place] Adult Echo Study Status: Bedside Patient Status: Routine Technical Quality: Suboptimal Blood Pressure:122/60 mmHg EKG: Sinus with ectopy 2D Measurements LV Diastolic Dimension: 5.4 cm LV Systolic Dimension: 3.4 cm LV Septum Diastolic: 1 cm LV PW Diastolic: 1 cm AO Root Dimension: 4 cm LA Dimension: 3 cm LA ESV (BP):88.6 ml LVOT Stroke Volume: 128.95 ml LA ESV Index: 45 ml/m2 Stroke Volume Index65.13 ml/m2 LVOT: 2.6 cm Ascending Aorta:4.6 cm Doppler Measurements AV Peak Velocity: 215 cm/s MV Peak E-Wave: 81.8 cm/s AV Peak Gradient: 18.49 mmHg MV Peak A-Wave: 102 cm/s AV Mean Gradient: 10 mmHg MV E/A Ratio: 0.8 AV VTI:39.4 cm MV P1/2t: 53 msec LVOT Peak Velocity: 119 cm/s LVOT VTI24.3 cm MV Deceleration Time: 181 msec AV Area (Continuity):3.27 cm2 MV Area (PHT): 4.15 cm2 PV Peak Velocity: 141 cm/s PV Peak Gradient: 7.95 mmHg E' Septal Velocity: 10.9 cm/s E' Lateral Velocity: 11.5 cm/s E/Med E':[id number] E/Lat E':7.993756 Cardiac Anatomy Left Ventricle/Interventricular Septum The left ventricular size is at the upper limit of normal. Due to frequent ectopy, it was difficult to evaluate ejection fraction and wall motion accurately. Diastolic function could not be determined. Left Atrium/Interatrial Septum The left atrium is mildly dilated. Aortic Valve The aortic valve is poorly visualized. Trace regurgitation. No significant stenosis detected. Mitral Valve The mitral valve is poorly visualized. No significant regurgitation. Aorta The aortic root is mildly dilated when indexed. The ascending aorta is dilated at 4.5 cm when indexed. Right Ventricle The right ventricular size is at the upper limits of normal. Function is preserved by TAPSE. Right Atrium The right atrium is dilated. Pulmonic Valve The pulmonic valve is poorly visualized. Trace regurgitation. Tricuspid Valve The tricuspid valve is poorly visualized. Trace regurgitation. Pumonary Artery An accurate pulmonary artery pressure could not be obtained. Venous Structures IVC is normal in size. Inspiratory collapse is normal overall. Pericardium/Extracardiac No significant pericardial effusion detected. Summary The left ventricular size is at the upper limit of normal. Due to frequent ectopy, it was difficult to evaluate ejection fraction and wall motion accurately. Diastolic function could not be determined. The left atrium is mildly dilated. The aortic root is mildly dilated when indexed. The ascending aorta is dilated at 4.5 cm when indexed. The right ventricular size is at the upper limits of normal. Function is preserved by TAPSE. The right atrium is dilated. No obvious evidence of endocarditis, however, sensitivity of this study is inherently limited due to transthoracic technique and also poor image quality. If clinical suspicion remains for endocarditis, consider KARINA. Signature * Event Display: Echocardiogram - Complete Authored Date: Heart Transesophageal * Event Display: Trans-esophageal Echocardiogram Authored Date: Transesophageal Echocardiography Report (KARINA) Patient Demographics Patient Name MARYAM MIMS Date of Study 10/18/2022 Corporate Gender Male Facility Race Ethnicity Date of 1950 Height: 69 inches Age 72 year(s) Weight: 180 pounds Accession Number [id number] BSA: 1.98 m2 Room Number [id number] BMI: 26.58 kg/m2 Referring Physician CHASTITY Belle Interpreting Bobby Lopes MD Physician Metal Expediter Maliha Varma [facility] Indications Endocarditis. Study Data Type of Study KARINA procedure:KARINA with Doppler and Colorflow. Procedure Information:The procedure, including risks and benefits, was explained to the patient and informed consent was obtained. Time out was performed pre-procedure. The transesophageal probe was inserted by the attending court interpreter. There were no complications. Heart sounds regular, no murmur, positive murmur . Breath sounds clear throughout all lobes . Study Date10/18/2022 Start Time: 09:01 AM Study Location: [facility] Study Status: KARINA Suite Patient Status: Routine Technical Quality: Adequate Blood Pressure:180/93 mmHg EKG: Normal sinus rhythm HR: 83 bpm KARINA Performed By: Reynaldo Ramirez MD Type of Anesthesia: Anesthesia administered by anesthesiologist. 2D Measurements AO Root Dimension: 4.36 cm Ascending Aorta:4.61 cm Doppler Measurements TR Velocity:220.14 cm/s TR Gradient:19.38 mmHg Cardiac Anatomy Left Ventricle/Interventricular Septum The left ventricular size is normal. The LV systolic function is normal . The left ventricular ejection fraction is 55-60 %. Left Atrium/Interatrial Septum There is no thrombus in the left atrial appendage. Left atrial appendage function is normal . A patent foramen ovale (PFO) was noted by color flow doppler. Aortic Valve The aortic valve is trileaflet . The left coronary cusp is mildly thickened and calcified . There is no aortic stenosis. There is mild aortic regurgitation. Real time (live) 3D imaging reveals thickened aortic valve leaflets with normal function. Mitral Valve The mitral valve opening is normal. There is mild mitral regurgitation. Real time (live) 3D imaging reveals normal mitral valve leaflet structure and function. 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 There is severe plaque in the descending aorta . Right Ventricle The right ventricle is normal in size and function. Pulmonic Valve The pulmonic valve appears grossly normal. There is mild pulmonic regurgitation. Tricuspid Valve The tricuspid valve appears normal . There is trace tricuspid valve regurgitation. Pumonary Artery The pulmonary artery appears grossly normal. Venous Structures There is normal pulmonary venous flow. Pericardium/Extracardiac There is no significant pericardial effusion. Summary The left ventricular size is normal. The LV systolic function is normal . The left ventricular ejection fraction is 55-60 %. The aortic valve is trileaflet . The left coronary cusp is mildly thickened and calcified . There is no aortic stenosis. There is mild aortic regurgitation. Real time (live) 3D imaging reveals thickened aortic valve leaflets with normal function. The mitral valve opening is normal. There is mild mitral regurgitation. Real time (live) 3D imaging reveals normal mitral valve leaflet structure and function. 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 There is severe plaque in the descending aorta . The right ventricle is normal in size and function. A patent foramen ovale (PFO) was noted by color flow doppler. Impressions No vegetation was detected. Comparison No prior study available for comparison. Signature * Event Display: Trans-esophageal Echocardiogram Authored Date: Hospital Progress note * Daly Perez RN: PERFORM, SIGN, VERIFY Event Display: Progress Note Hospital Authored Date: [id number] Patient: MARYAM MIMS Age: 72 years Sex: Male : 1950 Associated Diagnoses: None Author: Daly Perez RN Findings Narrative/Incidental Pt alert and oriented, no pain present. Pt has IV access, Vancomycin given. Pt Gregory cath was removed, has been urinating on own. Pt is on room air. Pt is safe adn comfortable, all needs met at this time. . * Tammi Dooley MD: PERFORM Event Display: Progress Note Hospital Authored Date: [id number] Patient: ??MARYAM MIMS ? Age:??72 Years?Sex:??Male?:??1950?? Subjective pt seen and examined at bedside?no overnight event ??ID initially recommended Vancomycin for?? 6 weeks but given his skin condition later recommended [facility] working on??getting that Gregory removed ? Review of Systems All other systems reviewed, negative except mentioned.?? Allergies Allergies ?(Active and Proposed Allergies Only) lisinopril? (Severity: Unknown severity, Onset: Unknown) ?Reactions: Nausea penicillin? (Severity: Unknown severity, Onset: Unknown) ?Comments: Rash ? Objective Measurements?? Height: 178 cm (10/19/22) Weight: 79.8 kg (10/16/22) ? Physical Exam GENERAL: In no apparent distress HEENT: Head normocephalic, PERRL,Moist mucous membrane. Neck supple CARDIOVASCULAR: Normal rate and rhythm, no murmurs, no rubs, no gallops RESPIRATORY: Lungs clear to auscultation, no wheezes , no crackles ABDOMEN/GI: Nondistended, soft, nontender, normal bowel sounds EXTREMITIES: No pitting edema SELF PAY COLLECTOR: Alert and oriented x 3.Non focal neuro exam. PSYCHIATRIC: Calm and co-operative SKIN: Warm and dry, extensive rash from psoriasis w dry flaky skin _ 72 Hour Antibiotic History Active Antibiotics Calendar Day Last Administered First Administered Fluconazole??200 mg, By Mouth, Daily ?2 10/19/2022 09:13 10/18/2022 08:00 Vancomycin??1,250 mg, 166.67 mL/hr, IVPB, Every 12 hours ?7 10/18/2022 14:43 10/13/2022 00:10 ? Stopped Antibiotics Stop Date/Time Last Administered First Administered ceFAZolin??2 Gm, IV Push, Every 8 hours 10/18/2022 14:50 10/18/2022 06:09 10/12/2022 15:13 Fluconazole??200 mg, 100 mL, 100 mL/hr, IVPB, Once 10/17/2022 21:27 10/17/2022 21:26 10/17/2022 21:26 ? Results Recent Labs BLOOD COUNT & DIFF WBC 10.2 k/mm3 ()?? 10/18/2022 00:48 RBC 3.54 m/mm3 (Low)?? 10/18/2022 00:48 Hgb 10.5 Gm/dL (Low)?? 10/18/2022 00:48 Hct 31.1 % (Low)?? 10/18/2022 00:48 MCV 87.9 femtoliters ()?? 10/18/2022 00:48 MCH 29.7 pg ()?? 10/18/2022 00:48 MCHC 33.8 g/dL ()?? 10/18/2022 00:48 Platelet Count 241 k/mm3 ()?? 10/18/2022 00:48 RDW-SD 41.2 femtoliters ()?? 10/18/2022 00:48 MPV 9.7 femtoliters ()?? 10/18/2022 00:48 Nucleated RBC (Automated) 0.0 #/100 WBC'S ()?? 10/18/2022 00:48 Abs. NRBC 0.0 k/mm3 ()?? 10/18/2022 00:48 Abs. Neut 7.4 k/mm3 (High)?? 10/18/2022 00:48 Abs. Lymph 1.5 k/mm3 ()?? 10/18/2022 00:48 Abs. [place] 0.7 k/mm3 ()?? 10/18/2022 00:48 Abs. Eo 0.5 k/mm3 (High)?? 10/18/2022 00:48 Abs. Baso 0.1 k/mm3 ()?? 10/18/2022 00:48 Neut % 72.7 % ()?? 10/18/2022 00:48 Lymph % 14.4 % (Low)?? 10/18/2022 00:48 [place] % 6.9 % ()?? 10/18/2022 00:48 Eos % 4.7 % ()?? 10/18/2022 00:48 Baso % 0.5 % ()?? 10/18/2022 00:48 Imm Gran 0.8 % ()?? 10/18/2022 00:48 Abs. Imm Gran 0.1 k/mm3 ()?? 10/18/2022 00:48 ?? CHEM GENERAL Sodium 132 mmol/L (Low)?? 10/18/2022 00:51 Potassium 4.1 mmol/L ()?? 10/18/2022 00:51 Chloride 99 mmol/L ()?? 10/18/2022 00:51 Bicarbonate Level 25 mmol/L ()?? 10/18/2022 00:51 Anion Gap 8 ()?? 10/18/2022 00:51 Glucose Level 124 mg/dL (High)?? 10/18/2022 00:51 BUN 18 mg/dL ()?? 10/18/2022 00:51 Creatinine-Blood 0.7 mg/dL ()?? 10/19/2022 00:25 Estimated GFR Creatinine 98 ML/MIN/1.73 M2 ()?? 10/19/2022 00:25 Magnesium 1.9 mg/dL ()?? 10/18/2022 00:51 ?? TOXICOLOGY/TDM Vancomycin Level, Random 29.1 mg/L ()?? 10/18/2022 17:50 Vancomycin Level, Trough 13.4 mg/L ()?? 10/18/2022 13:03 ? 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 Acute lower back pain ??T9-10 Discitis/Osteomyelitis ??left wrist pain ??MRSA??bacteremia ??Patient with diffuse skin erythrodermic psoriasis with recent Humira infusion 5 days ago ??presented with acute lower back pain and left wrist pain ??AT ed patient is HD stable afebrile but looking ill ??hemogram with leukocytosis 23K with left shift ??elevated ESR 60, CRP 9.5 ??further MRI lumber spine was not tolerated initially, fortunately he did have it completed with No acute cord compression or cauda equina however there signal is present within the anterior aspect of the T9-T10 disc space with mild T2 bright signal within the adjacent T9 and T10 vertebral bodies and ventral paraspinal soft tissues. Although the findings could be related to degenerative change, osteomyelitis/discitis later blood cultures reported positive for GPC /staph ??patient was started on Vancomycin and Ceftriaxone for further management of bacteremia and possible discitis/osteomyelitis ?TTE non conclusive and poor quality ??persistent bacteremia on blood cultures from yesterday 10/12 again Left Wrist XR ordered--no acute fracture oe pathology Blood CS from 10/13 remained positive CS from??10/16/22?? -negative to date ?ID On board ?? per ID need KARINA while being on Vancomycin and Ancef ?KARINA done today after EGD showed no obstruction ??KARINA did not show vegetation?Ancef discontinued ??on Vancomycin ??ID recommend - dalbavancin 1500 prior to discharge and again once as an outpatient, then in the ID f/u clinic ??Pharmacy is arranging that F/u on blood culture from 10/16 \ ??ID On board ?? Acute Urinary retention ??Patient noted that he has acute urinary retention just happen since yesterday with reported difficulty passing urine requiring Gregory catheter placement at ED with 500cc urine out ??patient has no saddle anaesthesia or lower limb weakness nor numbness ??retention could be relegated to nerve compression versus due to sever pain and narcotics given ??Gregory removed today ??monitor for retention? 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 Dermatology office [phone] BHAVESH Arriaga taking care of him can be reached for any clarifications ?? HTN ??HLD ??CAD ??AAA ??C/w ASA. statins ??avoid volume overload ??hold HCTZ and amlodipine given low SBP 100s ??bisoprolol 5 mg ordered ? Jonelle esophagitis ??Appreciate GI recommendation ??PPI ??Fluconazole 200 mg X2 weeks ? Code :Full ??DVT: Lovenox ??OMN:IV antibiotics for persistent Bacteremia,? anticipate DC home in next 24 hr ? Discharge Planning:? * Zenon Ji DO: PERFORM, SIGN, VERIFY Event Display: Progress Note Hospital Authored Date: Patient: MARYAM MIMS Age: 72 years Sex: Male : 1950 Associated Diagnoses: None Author: Zenon Ji DO Esophageal biopsies consistent with Jonelle esophagitis. Please start the patient on fluconazole 400 mg once followed by 200 mg daily for 2 weeks. Continue with oral PPI. Final Diagnosis: Esophagus, mid-proximal, biopsies: - Squamous esophageal mucosa demonstrating active esophagitis, moderate to severe, erosive, with parakeratosis and presence of Jonelle organisms within the parakeratotic layer (PASD stain), consistent with Jonelle esophagitis. Note * Daly Perez RN: PERFORM Event Display: Discharge/Transfer Note Hospital Authored Date: Nursing Discharge Note Entered On: 10/20/2022 13:55 EDT Performed On: 10/20/2022 13:52 EDT by Daly Perez RN Nursing Discharge Note 2 Discharge Time : 10/20/2022 13:52 EDT Discharge Level of Care at Discharge : Home/Long-Term/Foster Care Patient Left Unit Via : Wheelchair Patient Accompanied Off Unit with : Responsible adult DC Instructions Provided & Signed by Pt : Yes Patient Understands D/C Instructions : Yes Patient Instructions Discharge Signed : Yes Did Pt have Specialty Bed or Wound Vac : No Daly Perez RN - 10/20/2022 13:52 EDT * Tammi Dooley MD: PERFORM Event Display: Discharge/Transfer Note Hospital Authored Date: Patient: ??FELICITA MARYAM ? Age:??72 Years?Sex:??Male?:??1950?? 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 _ Discharge Medications Amlodipine (amLODIPine 10 mg oral tablet)?10?Milligram?1?tablet?By Mouth?Daily Aspirin (aspirin 81 mg oral delayed release tablet)?81?Milligram?1?tablet?By Mouth?Daily?for 30?Days Atorvastatin (atorvastatin 40 mg oral tablet)?1?tab(s)?40?Milligram?By Mouth?Daily?for 30?Days?replaces Simvastatin Bisoprolol-Hydrochlorothiazide (bisoprolol-hydrochlorothiazide 10 mg-6.25 mg oral tablet)?1?tab(s)?By Mouth?Daily Cyanocobalamin (Vitamin B12 1000 mcg oral tablet)?1?tab(s)?1,000?Microgram?By Mouth?Daily Fluconazole (fluconazole 200 mg oral tablet)?1?tab(s)?200?Milligram?By Mouth?Daily?for 12?Days Multivitamin (Super B Complex)?1?tab(s)?By Mouth?Daily Multivitamin With Minerals (multivitamin with minerals Multiple Vitamins with Minerals oral tablet)?1?tab(s)?By Mouth?Daily Omeprazole (omeprazole 20 mg oral enteric coated capsule)?1?capsule?20?Milligram?By Mouth?Daily Triamcinolone Topical (triamcinolone 0.5% topical cream)?See Instructions?Topically 2 times adayapply a thin film ? Durable Medical Equipment Ambulatory devices needed: None (10/17/22) ? Medications Started fluconazole Allergies Allergies ?(Active and Proposed Allergies Only) lisinopril? (Severity: Unknown severity, Onset: Unknown) ?Reactions: Nausea penicillin? (Severity: Unknown severity, Onset: Unknown) ?Comments: Rash ? Future Appointments Sunday 1:00 PM EDT ?? With: Jayde Garcia MD Where: [facility] Infectious Disease [address] [place] [address]- Objective Assessment and Plan ?72 y/o??male with history of hypertension, hyperlipidemia, CAD, thoracic aortic aneurysm, erythrodermic psoriasis on immunotherapy with recent Humira injections 5 days ago presented with acute lower back pain over last week pain has been waxing and waning over the last week, left wrist pain was found to have bacteremia with GPC/Staph and MRI imaging concerning for T9-10 discitis/osteomyelitis. ??Positive for MRSA??bacteremia.?? KARINA??did not show any vegetation.? negative blood culture from 10/16. receiving Dalbavancin today . ID/pharmacy arranging 2nd dose.?? Pt will be discharge home today, plan discussed with pt at bedside. ? Acute lower back pain ??T9-10 Discitis/Osteomyelitis ??left wrist pain ??MRSA??bacteremia ??Patient with diffuse skin erythrodermic psoriasis with recent Humira infusion 5 days ago ??presented with acute lower back pain and left wrist pain ??AT ed patient is HD stable afebrile but looking ill ??hemogram with leukocytosis 23K with left shift ??elevated ESR 60, CRP 9.5 ??further MRI lumber spine was not tolerated initially, fortunately he did have it completed with No acute cord compression or cauda equina however there signal is present within the anterior aspect of the T9-T10 disc space with mild T2 bright signal within the adjacent T9 and T10 vertebral bodies and ventral paraspinal soft tissues. Although the findings could be related to degenerative change, osteomyelitis/discitis later blood cultures reported positive for??MRSA ??patient was started on Vancomycin and Ceftriaxone for further management of bacteremia and possible discitis/osteomyelitis ?TTE non conclusive and poor quality ??persistent bacteremia on blood cultures from?? 10/12 again Left Wrist XR ordered--no acute fracture oe pathology Blood CS from 10/13 remained positive CS from??10/16/22?? -negative to date ?ID On board ?? per ID need KARINA while being on Vancomycin and Ancef ?KARINA done after EGD showed no obstruction ??KARINA did not show vegetation?Ancef discontinued ??on Vancomycin ??ID recommend - dalbavancin 1500 prior to discharge and again once as an outpatient, then in the ID f/u clinic ??Pt receving Dalbavancin today , will be discharge after that ??ID and ID pharmacy is going to set up the next dose in 2 weeks ID alreday requested follow up ??Pt does not have any back pain now ? Acute Urinary retention ??Patient noted that he has acute urinary retention just happen since yesterday with reported difficulty passing urine requiring Gregory catheter placement at ED with 500cc urine out ??patient has no saddle anaesthesia or lower limb weakness nor numbness ??retention could be relegated to nerve compression versus due to sever pain and narcotics given ??Gregory removed?? on 10/19 , no retention ? 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 s/p one dose of solumedrol Continue topical steroid ??f/u with Dermatology? HTN ??HLD ??CAD ??AAA ??C/w ASA. statins Resume home Amlodipine, Bisoloprolol HCTZ ? Jonelle esophagitis ??Appreciate GI recommendation ??PPI ??Fluconazole 200 mg X2 weeks ??continue omeprazole? . Physical Exam GENERAL: In no apparent distress HEENT: Head normocephalic, PERRL,Moist mucous membrane. Neck supple CARDIOVASCULAR: Normal rate and rhythm, no murmurs, no rubs, no gallops RESPIRATORY: Lungs clear to auscultation, no wheezes , no crackles ABDOMEN/GI: Nondistended, soft, nontender, normal bowel sounds EXTREMITIES: No pitting edema SELF PAY COLLECTOR: Alert and oriented x 3.Non focal neuro exam. PSYCHIATRIC: Calm and co-operative SKIN: Warm and dry, extensive rash from psoriasis w dry flaky skin Surgical Procedures Gastroscopy (EGD) Diagnostic 10/17/2022 16:20 Consultants ID ??GI ?? Pending Results Blood Culture ordered on 10/16/2022 Blood Culture #2 ordered on 10/16/2022 Blood Gas Arterial ordered on 10/15/2022 COVID-19 (2019 Novel Coronavirus) PCR ordered on 10/17/2022 Creatinine ordered on 10/19/2022 Patient Education Titles MRSA (Methicillin-Resistant Staphylococcus Aureus)?? Staph Infection (MRSA)?? Follow-Up Appointments Added Follow Up ?Time Frame ?Comments Shabana Newton MD?1 to 2 weeks Post Discharge Care Discharge ?10/20/22 12:59:00 EDT Discharge Prescriptions ?ePrescribed, ??10/20/22 12:59:00 EDT Home Health Face to Face ^HomeHealth[facility]F Results Discharge Labs BLOOD COUNT & DIFF WBC 10.2 k/mm3 ()?? 10/18/2022 00:48 RBC 3.54 m/mm3 (Low)?? 10/18/2022 00:48 Hgb 10.5 Gm/dL (Low)?? 10/18/2022 00:48 Hct 31.1 % (Low)?? 10/18/2022 00:48 MCV 87.9 femtoliters ()?? 10/18/2022 00:48 MCH 29.7 pg ()?? 10/18/2022 00:48 MCHC 33.8 g/dL ()?? 10/18/2022 00:48 Platelet Count 241 k/mm3 ()?? 10/18/2022 00:48 RDW-SD 41.2 femtoliters ()?? 10/18/2022 00:48 MPV 9.7 femtoliters ()?? 10/18/2022 00:48 Nucleated RBC (Automated) 0.0 #/100 WBC'S ()?? 10/18/2022 00:48 Abs. NRBC 0.0 k/mm3 ()?? 10/18/2022 00:48 Abs. Neut 7.4 k/mm3 (High)?? 10/18/2022 00:48 Abs. Lymph 1.5 k/mm3 ()?? 10/18/2022 00:48 Abs. [place] 0.7 k/mm3 ()?? 10/18/2022 00:48 Abs. Eo 0.5 k/mm3 (High)?? 10/18/2022 00:48 Abs. Baso 0.1 k/mm3 ()?? 10/18/2022 00:48 Neut % 72.7 % ()?? 10/18/2022 00:48 Lymph % 14.4 % (Low)?? 10/18/2022 00:48 [place] % 6.9 % ()?? 10/18/2022 00:48 Eos % 4.7 % ()?? 10/18/2022 00:48 Baso % 0.5 % ()?? 10/18/2022 00:48 Imm Gran 0.8 % ()?? 10/18/2022 00:48 Abs. Imm Gran 0.1 k/mm3 ()?? 10/18/2022 00:48 ?? CARDIAC Nt-Probnp 1544 pg/mL (High)?? 10/11/2022 10:47 High Sensitivity Troponin (HSTnT) 15 ng/L ()?? 10/11/2022 10:47 ?? CHEM GENERAL Sodium 132 mmol/L (Low)?? 10/18/2022 00:51 Potassium 4.1 mmol/L ()?? 10/18/2022 00:51 Chloride 99 mmol/L ()?? 10/18/2022 00:51 Bicarbonate Level 25 mmol/L ()?? 10/18/2022 00:51 Anion Gap 8 ()?? 10/18/2022 00:51 Glucose Level 124 mg/dL (High)?? 10/18/2022 00:51 BUN 18 mg/dL ()?? 10/18/2022 00:51 Creatinine-Blood 0.7 mg/dL ()?? 10/20/2022 01:50 Estimated GFR Creatinine 97 ML/MIN/1.73 M2 ()?? 10/20/2022 01:50 Calcium 8.3 mg/dL (Low)?? 10/14/2022 00:43 Phosphorus 3.1 mg/dL ()?? 10/14/2022 00:43 Magnesium 1.9 mg/dL ()?? 10/18/2022 00:51 Protein, Total 5.3 Gm/dL (Low)?? 10/13/2022 01:29 Albumin 2.8 Gm/dL (Low)?? 10/13/2022 01:29 AG Ratio 1.5 ()?? 10/11/2022 10:47 Alkaline Phosphatase 68 units/L ()?? 10/13/2022 01:29 AST (SGOT) 23 units/L ()?? 10/13/2022 01:29 ALT (SGPT) 13 units/L ()?? 10/13/2022 01:29 Bilirubin, Total 0.3 mg/dL ()?? 10/13/2022 01:29 Bilirubin, Direct <0.2 mg/dL ()?? 10/13/2022 01:29 Bilirubin, Indirect Direct bilirubin is less than the measureable limit. Therefore, indirect mg/dL ()?? 10/13/2022 01:29 Lactate 1.4 mmol/L ()?? 10/12/2022 09:14 C-Reactive Protein 9.4 mg/dL (High)?? 10/11/2022 10:47 ? HEME OTHER Sed Rate 63 mm/hr (High)?? 10/11/2022 10:47 Hold Lavender Top SPECIMEN DISCARDED AFTER 24 HOURS. ()?? 10/16/2022 16:20 Hold Blue Top SPECIMEN DISCARDED AFTER 4 HOURS. ()?? 10/11/2022 10:47 ? MISC. CHEMISTRY Hold Gel Top SPECIMEN DISCARDED AFTER 1 WEEK ()?? 10/16/2022 16:20 ? TOXICOLOGY/TDM Vancomycin Level, Peak 6.5 mg/L (Low)?? 10/16/2022 10:11 Vancomycin Level, Random 29.1 mg/L ()?? 10/18/2022 17:50 Vancomycin Level, Trough 13.4 mg/L ()?? 10/18/2022 13:03 ? UA/URINALYSIS Appear/Color, Urine YELLOW ()?? 10/11/2022 14:30 Specific [place], Urine 1.018 ()?? 10/11/2022 14:30 pH, Urine 6.0 ()?? 10/11/2022 14:30 Albumin, Urine TRACE (Abnormal)?? 10/11/2022 14:30 Glucose, Urine NEGATIVE ()?? 10/11/2022 14:30 Ketones, Urine NEGATIVE ()?? 10/11/2022 14:30 Bilirubin, Urine NEGATIVE ()?? 10/11/2022 14:30 Hemoglobin, Urine NEGATIVE ()?? 10/11/2022 14:30 Nitrite, Urine NEGATIVE ()?? 10/11/2022 14:30 Leukocyte, Urine NEGATIVE ()?? 10/11/2022 14:30 Urobilinogen NORMAL mg/dL ()?? 10/11/2022 14:30 WBC's, Urine <1 /HPF ()?? 10/11/2022 14:30 RBC's, Urine 1 /HPF ()?? 10/11/2022 14:30 Mucus SLIGHT /LPF ()?? 10/11/2022 14:30 Hold Urine Culture Testing available 48 hours from time of collection. ()?? 10/11/2022 14:30 ? VIROLOGY COVID-19 by RT-PCR NEGATIVE ()?? 10/17/2022 14:15 COVID-19 PCR Specimen Source NASAL ()?? 10/11/2022 10:47 COVID-19 PCR Result NEGATIVE ()?? 10/11/2022 10:47 ? 45_ minutes spent on discharge * Daly Perez RN: PERFORM Event Display: Patient Education/Instruction Authored Date: Inpatient Adult Discharge Instructions [place] [id number] Name: MARYAM MIMS : 1950 Visit: 10/12/2022 02:02:00 Current Date: 10/20/2022 13:24 Account: [id number] Inpatient Adult Discharge Instructions We would like to thank you for allowing us to assist you with your healthcare needs. The following includes patient education materials and information regarding your injury/illness. Our entire staffstrives to provide an excellent experience for our patients and their families. PLEASE ENSURE YOU FOLLOW-UP PER THE INSTRUCTIONS BELOW! ?? YOUR OPINION IS IMPORTANT TO US! Please complete the survey you may receive by mail or email. Your feedback will be used to make improvements to the healthcare experiences of our patients and their families. Surveys are administered by [employer] ?? If further treatment with your primary care physician or another doctor is recommended, it is important for you to keep the appointment. Call your primary care physician or return to the Emergency Department immediately if your condition worsens, fails to improve, or new symptoms develop. If you need to find a doctor, you can call [facility] [employer] for a referral at [phone] or toll free at [phone]) or log in to [email or web address].. ?? You can view and manage your care through the patient portal or by using a health care claudio of your choosing. [employer] is a website that allows you to securely view your medical information including your hospital discharge summary, office visit summaries, medications and follow-up visits. You can also request appointments, renew medications, and request access to your medical information using a health care claudio of your choosing, or just ask a question. You can enroll at [email or web address] or register during your next office visit. You have been discharged from [facility], Patient Care Unit: S64. If you have any questions regarding these instructions after you leave, please call us and we will be happy to assist you. [facility] Your Care Team Attending Physician Miah AUGUSTE, Tammi Consulting Providers aJmes AUGUSTE, Reynaldo Cuadra; Zenon Ji DO; Divina AUGUSTE, Ruchi Dupont; David AUGUSTE, Ellis Dorantes; Tony AUGUSTE, Moody Belle; Marianne AUGUSTE, Bobby Burnett Discharging Providers Miah AUGUSTE, Tammi Reason for Your Visit MRSA Bacteremia Your Diagnosis Back pain Bacteremia General medical Immunocompromised Osteomyelitis of vertebra, thoracic region Sepsis due to methicillin resistant Staphylococcus aureus Severe sepsis Tests Performed Below is a partial list of the tests performed during your hospitalization. You may have had other tests and procedures not included in this list. Please discuss all test results with your provider. Basic Metabolic Panel BUN CBC CBC w/ Differential Comprehensive Metabolic Panel COVID-19 (NOVEL CORONAVIRUS), PCR Creatinine CRP Electrolytes ESR Glucose Level High??Sensitivity??Troponin T Hold Blue Top Tube HOLD GEL TUBE HOLD LAVENDER TUBE Lactate Level Lactic Acid Level Liver Function Panel Magnesium Level Mg Level Phosphorus Level ProBNP Urinalysis w/hold for Urine Culture VANC-PEAK Vancomycin Random Vancomycin Trough MRI Exam Not Completed Neuro MRI Lumbar Spine W+W/O Contrast MRI Thoracic Spine W+W/O Contrast MRI Thoracic Spine W/O Contrast XR Chest Portable XR Wrist Comp Min 3 Views Left Primary Care Provider Shabana Newton MD Advance Directive . Discharge Vitals Temperature: 97.3 DegF Height: 178 cm Pulse Rate: 66 bpm Weight: 79.8 kg Respiratory Rate: 18 br/min ?? Systolic Blood Pressure:??149 mm Hg??High ?? Diastolic Blood Pressure:??49 mm Hg??Low ?? Oxygen Saturation: 98 % ?? Studies Pending All tests and labs ordered during this hospital stay have been completed unless listed below. Please discuss all pending results with your provider listed above in these instructions. ?? Blood Culture Blood Culture #2 Blood Gas Arterial COVID-19 (2019 Novel Coronavirus) PCR Creatinine What to do next Instructions From Your Doctor Discharge Orders Scheduled Follow-Up Appointments Sunday 1:00 PM EDT ?? With: Jayde Garcia MD Where: [facility] Infectious Disease [address] [place] [address]- You Need to Schedule the Following Appointments Follow Up with??Shabana Newton MD When??Within 1 to 2 weeks Where: [address] [place] [address] [place] [address]- Discharge Medications MARYAM MIMS :1950 Visit Date:10/12/2022 Medications: Please continue your medications until treatment is completed or stopped by your provider. Medications not listed below should be discontinued. Discuss any questions related to medications with your provider. What How Much When Why Instructions Next Dose New Fluconazole (fluconazole 200 mg oral tablet) 1 tab(s) Oral Daily Duration: 12 Days Pickup at [facility] # 302 10/21@9am Changed Triamcinolone Topical (triamcinolone 0.5% topical cream) See instructions Topically 2 times a day apply a thin film ?? Pickup at [facility] # 302 10/21@9am Unchanged Amlodipine (amLODIPine 10 mg oral tablet) 1 tab(s) Oral Daily hypertension 9am Unchanged Aspirin (aspirin 81 mg oral delayed release tablet) 1 tab(s) Oral Daily Duration: 30 Days 9am Unchanged Atorvastatin (atorvastatin 40 mg oral tablet) 1 tab(s) Oral Daily Duration: 30 Days replaces Simvastatin ?? 5/13@9am Unchanged Bisoprolol-Hydrochlorothiazide (bisoprolol-hydrochlorothiazide 10 mg- 6.25 mg oral tablet) 1 tab(s) Oral Daily 10/21@9am Unchanged Cyanocobalamin (Vitamin B12 1000 mcg oral tablet) 1 tab(s) Oral Daily 10/21@9am Unchanged Multivitamin (Super B Complex) 1 tab(s) Oral Daily 10/21@9am Unchanged Multivitamin With Minerals (multivitamin with minerals Multiple Vitamins with Minerals oral tablet) 1 tab(s) Oral Daily 10/21@9am Unchanged Omeprazole (omeprazole 20 mg oral enteric coated capsule) 1 capsule Oral Daily Pickup at [facility] # 302 10/21@9am Pharmacy Information [facility] # [id number]: [address] [place] [id number] [phone] Test Results Below is a partial list of the most recent Laboratory test results done prior to this discharge. You may have had other tests and procedures not included in this list. Please discuss all test resultswith your provider. (10/17/2022) ???Surgical Pathology - Patient Name: MARYAM MIMS Lab Patient : 1950 (Age: 72) Collection Date: 10/17/2022 Accession Date: 10/18/2022 Sign Out Date: 10/19/2022 Tissue Source: 1:MID-PROX ESOPHAGUS BIOPSY Final Diagnosis: Esophagus, mid-proximal, biopsies: - Squamous esophageal mucosa demonstrating active esophagitis, moderate to severe, erosive, with parakeratosis andpresence of Jonelle organisms within the parakeratotic layer (PASD stain), consistent with Jonelle esophagitis. Primary Pathologist:Carrie Rowe M.D. electronically signed out by: Carrie Rowe M.D. / Aldair Gross Description: Labeled mid-proximal esophagus biopsy . Received in formalin are 4 pieces of soft white-nur tissue ranging from 0.2 x 0.2 x 0.1 cm to 0.5 x 0.2 x 0.1 cm. The specimen is submitted in toto. 1-4 pieces, x2. (HM)* Phone #: [phone], On-Call Pathologist: [id number] Basic Metabolic Panel (10/14/2022) ???Sodium - 135 mmol/L???Potassium - 3.8 mmol/L???Chloride - 97 mmol/L???Bicarbonate Level - 27 mmol/L???Anion Gap - 11???Glucose Level - 188 mg/dL???BUN - 19 mg/dL???Creatinine-Blood - 0.6 mg/dL???Estimated GFR Creatinine - 104 ML/MIN/1.73 M2???Calcium - 8.3 mg/dL BUN (10/18/2022) ???BUN - 18 mg/dL CBC (10/14/2022) ???WBC - 8.6 k/mm3???RBC - 3.60 m/mm3???Hgb - 10.6 Gm/dL???Hct - 31.8 %???MCV - 88.3 femtoliters???MCH - 29.4 pg???MCHC - 33.3 g/dL???Platelet Count - 184 k/mm3???RDW-SD - 41.6 femtoliters???MPV - 9.7 femtoliters???Nucleated RBC (Automated) - 0.0 #/100 WBC'S???Abs. NRBC - 0.0 k/mm3 CBC w/ Differential (10/18/2022) ???WBC - 10.2 k/mm3???RBC - 3.54 m/mm3???Hgb - 10.5 Gm/dL???Hct - 31.1 %???MCV - 87.9 femtoliters???MCH - 29.7 pg???MCHC - 33.8 g/dL???Platelet Count - 241 k/mm3???RDW-SD - 41.2 femtoliters???MPV - 9.7 femtoliters???Nucleated RBC (Automated) - 0.0 #/100 WBC'S???Abs. NRBC - 0.0 k/mm3???Abs. Neut - 7.4 k/mm3???Abs. Lymph - 1.5 k/mm3???Abs. [place] - 0.7 k/mm3???Abs. Eo - 0.5 k/mm3???Abs. Baso - 0.1 k/mm3???Neut % - 72.7 %???Lymph % - 14.4 %???[place] % - 6.9 %???Eos % - 4.7 %???Baso % - 0.5 %???Imm Gran - 0.8 %???Abs. Imm Gran - 0.1 k/mm3 Comprehensive Metabolic Panel (10/11/2022) ???Sodium - 134 mmol/L???Potassium - 4.3 mmol/L???Chloride - 96 mmol/L???Bicarbonate Level - 25 mmol/L???Anion Gap - 13???Glucose Level - 83 mg/dL???BUN - 17 mg/dL???Creatinine-Blood - 0.8 mg/dL???Estimated GFR Creatinine - 92 ML/MIN/1.73 M2???Calcium - 9.1 mg/dL???Protein, Total - 6.4 Gm/dL???Albumin - 3.8 Gm/dL???AG Ratio - 1.5???Alkaline Phosphatase - 81 units/L???AST (SGOT) - 22 units/L???ALT(SGPT) - 18 units/L???Bilirubin, Total - 0.3 mg/dL COVID-19 (NOVEL CORONAVIRUS), PCR (10/17/2022) ???COVID-19 by RT-PCR - NEGATIVE Creatinine (10/20/2022) ???Creatinine-Blood - 0.7 mg/dL???Estimated GFR Creatinine - 97 ML/MIN/1.73 M2 CRP (10/11/2022) ???C-Reactive Protein - 9.4 mg/dL Electrolytes (10/18/2022) ???Sodium - 132 mmol/L???Potassium - 4.1 mmol/L???Chloride - 99 mmol/L???Bicarbonate Level - 25 mmol/L???Anion Gap - 8 ESR (10/11/2022) ???Sed Rate - 63 mm/hr Glucose Level (10/18/2022) ???Glucose Level - 124 mg/dL High??Sensitivity??Troponin T (10/11/2022) ???High Sensitivity Troponin (HSTnT) - 15 ng/L Hold Blue Top Tube (10/11/2022) ???Hold Blue Top - SPECIMEN DISCARDED AFTER 4 HOURS. HOLD GEL TUBE (10/16/2022) ???Hold Gel Top - SPECIMEN DISCARDED AFTER 1 WEEK HOLD LAVENDER TUBE (10/16/2022) ???Hold Lavender Top - SPECIMEN DISCARDED AFTER 24 HOURS. Lactate Level (10/12/2022) ???Lactate - 1.4 mmol/L Lactic Acid Level (10/11/2022) ???Lactate - 1.3 mmol/L Liver Function Panel (10/13/2022) ???Protein, Total - 5.3 Gm/dL???Albumin - 2.8 Gm/dL???Alkaline Phosphatase - 68 units/L???AST (SGOT) - 23 units/L? ?ALT (SGPT) - 13 units/L? ?Bilirubin, Total - 0.3 mg/dL? ?Bilirubin, Direct - <0.2 mg/dL???Bilirubin, Indirect - Direct bilirubin is less than the measureable limit. Therefore, indirect Magnesium Level (10/18/2022) ???Magnesium - 1.9 mg/dL Mg Level (10/14/2022) ???Magnesium - 1.8 mg/dL Phosphorus Level (10/14/2022) ???Phosphorus - 3.1 mg/dL ProBNP (10/11/2022) ???Nt-Probnp - 1544 pg/mL Urinalysis w/hold for Urine Culture (10/11/2022) ???Appear/Color, Urine - YELLOW???Specific [place], Urine - 1.018???pH, Urine - 6.0???Albumin, Urine - TRACE???Glucose, Urine - NEGATIVE???Ketones, Urine - NEGATIVE???Bilirubin, Urine - NEGATIVE???Hemoglobin, Urine - NEGATIVE???Nitrite, Urine - NEGATIVE???Leukocyte, Urine - NEGATIVE???Urobilinogen - NORMAL? ?WBC's, Urine - <1 /HPF? ?RBC's, Urine - 1 /HPF? ?Mucus - SLIGHT? ?Hold Urine Culture -Testing available 48 hours from time of collection. VANC-PEAK (10/16/2022) ???Vancomycin Level, Peak - 6.5 mg/L Vancomycin Random (10/18/2022) ???Vancomycin Level, Random - 29.1 mg/L Vancomycin Trough (10/18/2022) ???Vancomycin Level, Trough - 13.4 mg/L Allergies (NKA means No Known Allergies) lisinopril??(Nausea) penicillin Problems Active Problems??(15) Borderline anemia?? Coronary artery calcification seen on CT scan?? Coronary artery disease?? Dyshidrotic eczema hands?? Dyspnea on exertion?? Erectile dysfunction?? Esophagitis?? Family history of prostate cancer brother?? Hypercholesterolemia?? Hypertension?? Moderate drinker of alcohol?? Nasal congestion?? Osteoarthritis of right knee?? Thoracic aortic aneurysm?? Tubular adenoma?? Education Materials Below is the list of Educational Leaflet Providered with your Discharge Instructions. MRSA (Methicillin-Resistant Staphylococcus Aureus)?? Staph Infection (MRSA)?? Valuables and Belongings I fully understand and agree that [facility] accepts no responsibility for all my personal property including clothing, toilet articles, radios, jewelry, dentures, hearing aids, rings, money, or any other property that is in my possession or is brought to me after admission. I understand certain valuables may be placed in a hospital safe for a short period of time. I understand that the hospital is not liable for loss or damage due to accident, fire, or other natural occurrence while said property is in the safe. I accept full responsibility for any personal property that I keep with me, and will not hold the hospital responsible in case of loss or disappearance. I acknowledge that i have been encouraged to send valuables and belongings home. ?? No Valuables/Belongings: No valuables/belongings present Review of Valuable and Belonging List: With patient, With witness Date for Pt to Sign Valuables/Belongings: 10/17/22 14:45:00 ?? Valuables & Belongings ?? 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 Dentures, lower ? Valuables Sent Home ? Valuables Sent to Security ? Other Discharge Information ? Case Management Discharge Plan?? Discharge Plan?? Discharge Rx Program: Discharge Prescription Program ?? Pulmonary Rehab Status?? Pulmonary Rehab Discharge Status?? Respiratory Rate: 18 br/min ? Common Emergency Awareness Tips IS IT A STROKE? Act FAST and Check for these signs: FACE Does the face look uneven? ARM Does one arm drift down? SPEECH Does their speech sound strange? TIME Call at any sign of stroke ?? Heart Attack Signs Chest discomfort: Most heart attacks involve discomfort in the center of the chest and lasts more than a few minutes, or goes away and comes back. It can feel like uncomfortable pressure, squeezing, fullness or pain. Discomfort in upper body: Symptoms can include pain or discomfort in one or both arms, back, neck, jaw or stomach. Shortness of breath: With or without discomfort. Other signs: Breaking out in a cold sweat, nausea, or lightheaded. Remember, MINUTES DO MATTER. If you experience any of these heart attack warning signs, call to get immediate medical attention! ?? Smoking can increase your chances of developing chronic health problems and can cause harmful effects to other family members in your house. If you smoke, you are strongly encouraged to quit. Please call [facility] [employer] Link at [phone] or [phone]) or log in to [email or web address] for referrals to smoking cessation programs. ?? 796 Suicide & Crisis Lifeline is available 01/01 if you or someone you know needs to find a reason to keep living. By calling 102 you'll be connected to a skilled, trained counselor at a crisis center in your area. INPATIENT DISCHARGE INSTRUCTIONS SIGNATURE PAGE MARYAM MIMS Location:[facility] Registration Date and Time:10/12/2022 02:02 EDT Primary Care Physician: Shabana Newton MD, I MARYAM MIMS, have received the above patient education materials/instructions and have verbalized understanding. If ambulance or transport services are being used I further acknowledge being given a choice of service. ?? If you need to contact me, please call me at this number: . Patient/Import Dispatcher Name: Patient/Import Dispatcher Signature: Relationship to Patient: Witness Name/Signature: Date: * Tammi Dooley MD: PERFORM Event Display: Patient Education Leaflets Authored Date: [id number] MRSA (Methicillin-Resistant Staphylococcus Aureus) ?? [id number] MRSA (Methicillin-Resistant Staphylococcus Aureus) What is MRSA? Staph (staphylococcus aureus)??bacteria??are common germs. They are often found on the skin or in the nose. Often the bacteria cause no problem. Most often they can cause mild skin infections. But sometimes severe infections of the skin, lungs,??blood, or other organs or tissues may occur. Some staph infections can be easily treated with common antibiotics. But 1 type of staph infection is harderto treat. This type is MRSA (methicillin-resistant staphylococcus aureus). It's called methicillin-resistant because the antibiotic (methicillin) that used to be an effective treatment for it, no longer works. MRSA is common in hospitals and nursing homes or long-term care facilities. It's becomingmore common among healthy children and adults outside the healthcare system (called community-acquired MRSA). A person may have no symptoms but be a MRSA carrier. Or they may have an active infection with the bacteria: ??? Colonization. When a person carries the MRSA bacteria but is healthy, it's called being colonized. This person can spread MRSA to others but has no infection. ??? Infection. When a person gets sick because of the bacteria, it's called being infected with MRSA. This person can also spread MRSA to others. If not treated correctly, MRSA infections can be very serious. They can even cause . ?? Who's at risk for MRSA? Anyone can get??MRSA. But there are some things that increase the risk. Some of these include: ??? Recent or long hospital stay ??? Having a surgical wound or IV (intravenous) line ??? Having a weakened immune system due to a health condition or its treatment ??? Living in a long-term or long-term care facility ??? Recent antibiotic therapy ??? Diabetes ??? Kidney dialysis ??? HIV infection ??? Injection drug use or sharing needles ??? Fdc or shelter time ??? Living in any crowded facility, such as a dormitory ??? service ??? Sharing sports equipment, razors, or other sharp objects ?? How does MRSA spread? People who are colonized with MRSA have MRSA in their noses, on their skin, and possibly other parts of the body. They may not be sick themselves. But they can spread the germs to others. ??? In hospitals and long- term care facilities, MRSA??can spread from patient to patient on the hands of healthcare workers. It can also spread on objects, such as cart or door handles and bedrails. ??? Outside healthcare settings, MRSA often spreads through zvhy-fl-ojfz contact, shared towels or athletic equipment, or from close contact with an infected person. ?? What are the symptoms of MRSA infection? MRSA skin infections often start as small red bumps on the skin. They look like pimples or spider bites. The small bumps may get larger and become swollen, painful, warm to the touch, and filled withpus. A large version of this may be called a boil or a carbuncle. The person may also have a fever.MRSA can also start in other ways. And it can spread deeper into the body. There it can cause 1 or more of the following: ??? Infections in bones, muscles, and other tissues ??? An infection in 1 or both lungs (pneumonia) ??? Infection of a surgical wound ??? Infection in the bloodstream (bacteremia and sepsis) ??? Infection of the lining of the heart (endocarditis) ??? Infection of the urinary tract (bladder and kidneys) ?? How is MRSA diagnosed? A sample of blood, urine, or infected tissue may be taken to diagnose a MRSA infection. A swab of the inside of the nose or another part of the body may be taken to diagnose colonization. The sample is then sent to a lab and tested for MRSA. If the infection affects bone, joint, or other organs, a blood test or biopsy may be done. Imaging studies, such as an X-ray or CT scan, may also be needed. ?? How is MRSA treated? MRSA infections often need no antibiotics if the infection is limited to the skin and consists of only pimples or a small boil. In that case, many these infections can be treated with warm soaks and by draining any boils. If there's spreading infection, MRSA is often treated with antibiotics. This is sometimes done together with draining the affected area. The antibiotic may be??given by mouth inpill form. Or it may be given into a vein by an IV. People who test positive for MRSA infection or colonization may have a process called decolonization. A topical antibiotic??is put inside the nose or in the nostrils to kill the bacteria. A special soap may be used to cleanse the skin. The person's environment and contacts will often need to be decolonized in the same way. ?? Can MRSA be prevented? Hospitals and nursing homes help prevent MRSA by doing the following: ??? Handwashing.??This is the single most important way to prevent the spread of germs. Healthcare workers should scrub their hands for at least 20 seconds with soap and clean, running water before and after treating each person. Under the fingernails and between the fingers should also be scrubbed. They also should scrub their hands after touching any surface that may be contaminated. If soap and water aren't readily available, an alcohol-based hand acid tank cleaner that contains at least 60% alcohol can be used. ??? Protective clothing.??Healthcare workers and visitors may wear gloves and a gown when entering the room of a person with MRSA. They must remove these items before leaving. ??? Private rooms.??People with MRSA infections are placed in private rooms or in a room with others who have the same infection. ??? Personal care items.??People with MRSA may have their own personal care items,such as thermometers and stethoscopes. These items stay in the person's room. ??? Monitoring. Hospitals watch the spread of MRSA and educate all staff on the best ways to prevent it. People with MRSA can help prevent spreading it by doing the following: ??? Ask all hospital staff and visitors to wash their hands before touching you. Don???t be afraid to speak up! ??? Wash your own hands often with soap and water. Or use an alcohol-based hand gel. ??? Ask that stethoscopes and other tools be wiped with alcohol before they're used on you. ??? Get tested for MRSA if you have a skin infection. If you're taking care of someone with MRSA: ??? Scrub your hands well with soap and water according to the directions below before and after any contact with the person. ??? Wear gloves when changing a bandage or touching an infected wound. Discard gloves after each use. Then wash your hands well. ??? Wash the person's bed linens, towels, and clothing in hot water with detergent or liquid bleach. Everyone can help prevent MRSA by doing the following: ??? Wash your hands often with soap and clean, running water. o Rub your hands together. o Clean the whole hand, under your nails, between your fingers, and up the wrists. o Wash for at least 20 seconds. o Rinse, letting the water run down yourfingers, not up your wrists. o Dry your hands well. Use a paper towel to turn off the faucet and open the door. ??? If soap and water aren't available, use an alcohol-based hand acid tank cleaner that containsat least 60% alcohol. o Squeeze about 1 tablespoon of acid tank cleaner into the palm of your hand. o Rub your hands together briskly. Clean the backs of your hands, the palms, between your fingers, and up thewrists. o Rub until the acid tank cleaner is gone and your hands are completely dry. ??? Keep cuts and scrapes clean and covered until they heal. ??? Cover your nose and mouth when you cough or sneeze. Wash your hands or use an alcohol-based acid tank cleaner after. ??? Stay away from the wounds or bandages of others.??? Don't share towels, razors, clothing, or sports equipment. ?? Last Reviewed Date: 2021 ?? 7449-1484 [employer]. All rights reserved. This information is not intended as a substitute for professional medical care. Always follow your healthcare professional's instructions. ?? * Tammi Dooley MD: PERFORM Event Display: Patient Education Leaflets Authored Date: [id number] Staph Infection (MRSA) ?? [id number] Staph Infection (MRSA) Staph is the short name for the common bacteria called staphylococcus aureus. Staph bacteria are often present on the skin without causing an infection. If it gets inside the skin, an infection occurs. This causes redness, tenderness, swelling, and sometimes fluid drainage. MRSA stands for methicillin-resistant staph aureus. Unlike a common staph infection, MRSA bacteria are resistant to the usual antibiotics and harder to treat. Also, MRSA can cause more troublesome and recurrent skin infections than common staph bacteria. It's also more likely to spread throughout the body and cause a life-threatening illness, though this is unusual. MRSA is spread to others by direct physical contact with the bacteria. MRSA can also be spread fromitems contaminated by a person who has the bacteria, such as bandages, towels, bed sheets, hard surfaces, or sports equipment. It's??generally??not spread through the air. ??But you can get it if youcome in direct contact with the fluid from someone's cough or sneeze.?Once you have a MRSA skin infection, you are at risk of having it again. If your healthcare provider thinks you have a MRSA infection, they may take a wound culture to confirm the diagnosis. If you have an abscess, your provider may drain it. They may prescribe one or more antibiotics that work against MRSA and may recommend that you clean your skin, the skin of your closest contacts, and things that you touch or wear to get rid of chronic MRSA infection at these sites. Home care ??? Take any antibiotics prescribed exactly as directed. Don't stop taking them until they are gone, even if you feel better, unless your healthcare provider tells you to stop. ??? If your healthcare provider prescribed disinfecting washes (such as chlorhexidine 4% soap) or antibiotic ointment, use it as directed. ??? Washing your hands is one of the most important things you can do to prevent spreading MRSA. ??? Cover your wounds with clean, dry bandages. Change dressings as they become soiled. Wash your hands before and after you touch your wound or change the bandage. ??? Remove any artificial nails and nail georgian. ?? Treating household members and your environment If you have been diagnosed with possible MRSA infection, those living with you are at higher risk of carrying the bacteria on their skin or in their nose, even if there is no sign of infection. Bacteria must be removed from the skin of all household members at the same time so it's not passed back and forth. Advise them to remove the bacteria as follows: ??? Household member should wash with chlorhexidine 4% soap as well. ??? If anyone in the household has a skin infection, it must be treated by a healthcare provider. ??? Clean counter tops, other hard surfaces that you contact, and children's toys. Ask your provider for an advised cleaning agent. Most disinfectant manufacturers list germs their product can destroy. ??? Don't share personal items such as drinking glasses, eating utensils,toothbrushes ,and razors. ?? Preventing spread of infection ??? Scrub your hands often with plain soap and clean, running water.Wash for at least 20 seconds each time. Be sure to clean the palms and the tops of your hands, under the fingernails, between the fingers, and the wrists. Dry hands with a single use towel (for example a paper towel). If soap and water are not available, you can use an alcohol-based hand coding compliance auditor at least 60% alcohol). Rub the coding compliance auditor over the entire surface of the hands, fingers, and wrists until dry. ??? Don't share personal items such as towels, washcloths, razors, clothing, or uniforms. Wash soiled sheets, towels or clothes in hot water with laundry detergent. Use an automatic clothes dryer set on high to kill any remaining bacteria. ??? If you use a gym, wipe down equipment with an alcohol-based coding compliance auditor before and after each use. ??Wipe the handgrips as well. ??? If you participate in sports, shower with plain soap after every activity. Use a clean towel for each shower. ?? Follow-up care Follow-up with your healthcare provider, or as advised. If a wound culture was taken, call as directed for the results. You will be told about any changes to your treatment. If you are diagnosed with MRSA, tell medical personnel in the future that you have been treated forthis type of infection. ?? When to seek medical advice Call your healthcare provider if any of the following occur: ??? Increasing redness, swelling or pain ??? Red streaks in the skin around the wound ??? Weakness or dizziness ??? New appearance of pus or drainage from the wound ??? New fever over 100.4?? F (38.0?? C), or as directed by the healthcareprovider ??? Development of new symptoms ?? Last Reviewed Date: 2021 ?? 7564-6214 [employer]. All rights reserved. This information is not intended as a substitute for professional medical care. Always follow your healthcare professional's instructions. ?? XR Wrist - left GE 3 Views * [facility] , CIS S: TRANSCRIBE Jose Lang MD: VERIFY Event Display: Result: Authored Date: [id number] Wrist Comp Min 3 Views Left Reason: Pain; Clinical Question(s): Osteomyelitis COMPARISON: None. 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 No fracture or dislocation. No osseous erosion. Atheromatous vascular calcifications. IMPRESSION: No radiographic evidence of osteomyelitis. Degenerative changes are outlined above WSN: [id number] Ordering Physician: Jacques Yates Dictated By: Jose Lang MD Dictated Date/Time: 10/12/22 1:49 pm Reviewed By: Jose Lang MD Signed By: Jose Lang MD Signed Date/Time: 10/12/22 1:49 pm Transcribed By: JAIME Transcribed Date/Time: 10/12/22 1:46 pm Portable XR Chest Views * HALLIE Zambrano S: TRANSCRILucero Velez MD: VERIFY Dinah Devi MD: SIGN Event Display: Result: Authored Date: [id number] Chest Portable Reason: Shortness of Breath; Clinical Question(s): Pneumonia COMPARISON: Multiple priors, most recent CT chest 08/22/2022 FINDINGS: LINES AND TUBES: None. LUNGS AND PLEURA: No focal consolidation. Normal pulmonary vascularity. No pleural effusion. No pneumothorax. HEART, MEDIASTINUM AND GREER: Unchanged cardiomediastinal silhouette. BONES AND SOFT TISSUES: No acute abnormality. IMPRESSION: No acute abnormality. I have personally reviewed the images and I agree with this report. WSN: [id number] Ordering Physician: Casa Rao Dictated By: Dinah Devi MD Dictated Date/Time: 10/11/22 11:12 a Reviewed By: Lucero Bland MD Signed By: Lucero Bland MD Signed Date/Time: 10/11/22 11:17 am Transcribed By: JAIME Transcribed Date/Time: 10/11/22 11:08 am Radiology * HALLIE Zambrano S: TRANSCRIBarabra Connors MD: VERIFY Event Display: Result: Authored Date: [id number] MRI Thoracic Spine W/O Contrast, MRI Exam Not Completed Neuro Refer to EMR; Hx of Present Illness: Back pain. TECHNIQUE: MRI of the thoracic and lumbar spine was attempted, though only nondiagnostic localizer sequences were obtained. COMPARISON: CT chest, 08/22/2022. FINDINGS: Nondiagnostic localizer sequences were obtained through the entire spine demonstrating normal height, curvature, and alignment. There is multilevel disc space narrowing. The spinal cord and spinal canal cannot be accurately assessed on these images. There is suspected multilevel canal stenosis in the cervical spine and lower lumbar spine from disc osteophyte and posterior ligamentous thickening, as well as facet spurring in the lower lumbar spine. IMPRESSION: Nondiagnostic exam with only a localizer sequences obtained. If clinically indicated, repeat exam with patient sedation can be obtained. WSN: [id number] Ordering Physician: Casa Rao Dictated By: Barbara Boykin MD Dictated Date/Time: 10/11/22 4:16 pm Reviewed By: Barbara Boykin MD Signed By: Barbara Boykin MD Signed Date/Time: 10/11/22 4:16 pm Transcribed By: JAIME Transcribed Date/Time: 10/11/22 4:10 pm MR Thoracic spine WO contrast * [facility] , CIS S: TRANSCRIBE Barbara Boykin MD: VERIFY Event Display: Result: Authored Date: [id number] MRI Thoracic Spine W/O Contrast, MRI Exam Not Completed Neuro Refer to EMR; Hx of Present Illness: Back pain. TECHNIQUE: MRI of the thoracic and lumbar spine was attempted, though only nondiagnostic localizer sequences were obtained. COMPARISON: CT chest, 08/22/2022. FINDINGS: Nondiagnostic localizer sequences were obtained through the entire spine demonstrating normal height, curvature, and alignment. There is multilevel disc space narrowing. The spinal cord and spinal canal cannot be accurately assessed on these images. There is suspected multilevel canal stenosis in the cervical spine and lower lumbar spine from disc osteophyte and posterior ligamentous thickening, as well as facet spurring in the lower lumbar spine. IMPRESSION: Nondiagnostic exam with only a localizer sequences obtained. If clinically indicated, repeat exam with patient sedation can be obtained. WSN: [id number] Ordering Physician: Casa Rao Dictated By: Barbara Boykin MD Dictated Date/Time: 10/11/22 4:16 pm Reviewed By: Barbara Boykin MD Signed By: Barbara Boykin MD Signed Date/Time: 10/11/22 4:16 pm Transcribed By: CSB Transcribed Date/Time: 10/11/22 4:10 pm MR Lumbar spine WO and W contrast IV * Diego Georges MD: VERIFY Diego Georges MD: VERIFY Event Display: Result: Authored Date: [id number] MRI Thoracic Spine W+W/O Contrast, MRI Lumbar Spine W+W/O Contrast INDICATION: Refer to EMR; Hx of Present Illness: Pt from home, sunday recieved new med, wayne injection for borderline erythrodermic psoriasis, sunday AM started with SOB, mid back pain, was seen [place] with full workup and D C, new onset pedal edema, initial O2 89% RA, 97% on 2LNC for ems; Reason: Other:; Epidural abscess; Clinical Question(s): Epidural Empyema; Special Instructions: obtainwithin six h Epidural Empyema TECHNIQUE: MRI of the thoracic and lumbar spine was performed without and with intravenous gadolinium contrast material utilizing the departmental epidural abscess protocol. 16 mL of Clariscan was administered intravenously. COMPARISON: CT scan of the chest 08/22/2022 FINDINGS: Multiple images are degraded by patient motion which diminishes detail, and interpretation was made in light of this technical confine. MRI OF THE THORACIC SPINE ALIGNMENT, VERTEBRAE, MARROW, AND DISCS: There is mild exaggeration of the thoracic kyphosis without subluxation. Mild chronic multilevel loss of thoracic disc space height is noted. No retropulsion of bone. Heterogeneity of the marrow is noted on the sagittal T1-weighted images. Mild multilevel loss of thoracic disc space height. Scattered marginal spurring. At T9-T10, there is STIR bright signal within the anterior aspect of the disc space with STIR bright signal within the adjacent anterior T9 and T10 vertebral bodies. Minimal STIR bright signal withinthe anterior paraspinal soft tissues adjacent to the T9 and T10 vertebral bodies is noted. No definite fluid collection. CORD: There is no compression of the thoracic spinal cord. No definite epidural fluid collection. PARASPINAL TISSUES: See above. Small bilateral pleural effusions. MRI OF THE LUMBAR SPINE ALIGNMENT, VERTEBRAE, MARROW, AND DISCS: No significant subluxation is noted. The lumbar vertebral bodies are normal in height. Heterogeneity of the marrow is noted on the sagittal T1-weighted images. Severe loss of height of L3-L4 and L4-L5. The remainder of the lumbar discs are at least mildly diminished in height. Mild left posterior Modic type I endplate change at L4-L5. Marginal osteophytes and facet arthroses are present at multiple levels. CONUS: The visualized lower thoracic cord is unremarkable, in the conus terminates at approximatelyL1. No epidural fluid collection or abnormal leptomeningeal enhancement. PARASPINAL TISSUES: No acute retroperitoneal abnormality. Patchy T2 bright signal within the posterior paraspinal muscles. The presacral soft tissues are unremarkable. L1-L2: Concentric disc-osteophyte complex with a superimposed right paracentral- subarticular disc protrusion. Mild-moderate right central canal narrowing with crowding of the traversing right L2 nerve roots. Mild right and mild left foraminal narrowing. L2-L3: Concentric disc-osteophyte complex and mild facet arthrosis. Small right facet joint effusion. Mild central canal narrowing. Mild-moderate right and mild left foraminal narrowing. L3-L4: Concentric disc-osteophyte complex and facet arthrosis. Small right facet joint effusion. Moderate central canal stenosis. Mild right and moderate left foraminal narrowing. L4-L5: Concentric disc-osteophyte complex and facet arthrosis. Moderate central canal stenosis. Mild-moderate right and moderate-severe left foraminal stenosis. L5-S1: A broad-based posterior disc bulge and facet arthrosis. No significant central canal narrowing. Moderate right and no left foraminal stenosis. IMPRESSION: 1. Motion-degraded examination of the thoracic and lumbar spine. 2. No thoracic or lumbar epidural fluid collection. No thoracic cord compression or cauda equina impingement. 3. STIR bright signal is present within the anterior aspect of the T9-T10 disc space with mild T2 bright signal within the adjacent T9 and T10 vertebral bodies and ventral paraspinal soft tissues. Although the findings could be related to degenerative change, osteomyelitis/discitis can give a similar appearance and should be strongly considered. 4. No evidence of osteomyelitis/discitis of the lumbar spine. 5. Degenerative changes of the lumbar spine with central canal and foraminal narrowing as detailed above. These findings can be correlated with the patient's symptoms and neurological examination. 6. Patchy T2 bright signal within the lumbar posterior paraspinal musculature, which may be due to myositis. 7. Heterogeneous marrow, which may be due to heterogeneous red marrow transformation or osteoporosis. A preliminary report was issued to the emergency room by the ad service 10/11/2022 at 10:33 PM. WSN: [id number] Ordering Physician: Casa Rao Dictated By: Diego Georges MD Dictated Date/Time: 10/12/22 9:41 am Reviewed By: Diego Georges MD Signed By: Diego Georges MD Signed Date/Time: 10/12/22 9:41 am Transcribed By: JAIME Transcribed Date/Time: 10/12/22 9:17 am MR Thoracic spine WO and W contrast IV * Diego Georges MD: VERIFY Diego Georges MD: VERIFY Event Display: Result: Authored Date: [id number] MRI Thoracic Spine W+W/O Contrast, MRI Lumbar Spine W+W/O Contrast INDICATION: Refer to EMR; Hx of Present Illness: Pt from home, sunday recieved new med, wayne injection for borderline erythrodermic psoriasis, sunday AM started with SOB, mid back pain, was seen [place] with full workup and D C, new onset pedal edema, initial O2 89% RA, 97% on 2LNC for ems; Reason: Other:; Epidural abscess; Clinical Question(s): Epidural Empyema; Special Instructions: obtainwithin six h Epidural Empyema TECHNIQUE: MRI of the thoracic and lumbar spine was performed without and with intravenous gadolinium contrast material utilizing the departmental epidural abscess protocol. 16 mL of Clariscan was administered intravenously. COMPARISON: CT scan of the chest 08/22/2022 FINDINGS: Multiple images are degraded by patient motion which diminishes detail, and interpretation was made in light of this technical confine. MRI OF THE THORACIC SPINE ALIGNMENT, VERTEBRAE, MARROW, AND DISCS: There is mild exaggeration of the thoracic kyphosis without subluxation. Mild chronic multilevel loss of thoracic disc space height is noted. No retropulsion of bone. Heterogeneity of the marrow is noted on the sagittal T1-weighted images. Mild multilevel loss of thoracic disc space height. Scattered marginal spurring. At T9-T10, there is STIR bright signal within the anterior aspect of the disc space with STIR bright signal within the adjacent anterior T9 and T10 vertebral bodies. Minimal STIR bright signal withinthe anterior paraspinal soft tissues adjacent to the T9 and T10 vertebral bodies is noted. No definite fluid collection. CORD: There is no compression of the thoracic spinal cord. No definite epidural fluid collection. PARASPINAL TISSUES: See above. Small bilateral pleural effusions. MRI OF THE LUMBAR SPINE ALIGNMENT, VERTEBRAE, MARROW, AND DISCS: No significant subluxation is noted. The lumbar vertebral bodies are normal in height. Heterogeneity of the marrow is noted on the sagittal T1-weighted images. Severe loss of height of L3-L4 and L4-L5. The remainder of the lumbar discs are at least mildly diminished in height. Mild left posterior Modic type I endplate change at L4-L5. Marginal osteophytes and facet arthroses are present at multiple levels. CONUS: The visualized lower thoracic cord is unremarkable, in the conus terminates at approximatelyL1. No epidural fluid collection or abnormal leptomeningeal enhancement. PARASPINAL TISSUES: No acute retroperitoneal abnormality. Patchy T2 bright signal within the posterior paraspinal muscles. The presacral soft tissues are unremarkable. L1-L2: Concentric disc-osteophyte complex with a superimposed right paracentral- subarticular disc protrusion. Mild-moderate right central canal narrowing with crowding of the traversing right L2 nerve roots. Mild right and mild left foraminal narrowing. L2-L3: Concentric disc-osteophyte complex and mild facet arthrosis. Small right facet joint effusion. Mild central canal narrowing. Mild-moderate right and mild left foraminal narrowing. L3-L4: Concentric disc-osteophyte complex and facet arthrosis. Small right facet joint effusion. Moderate central canal stenosis. Mild right and moderate left foraminal narrowing. L4-L5: Concentric disc-osteophyte complex and facet arthrosis. Moderate central canal stenosis. Mild-moderate right and moderate-severe left foraminal stenosis. L5-S1: A broad-based posterior disc bulge and facet arthrosis. No significant central canal narrowing. Moderate right and no left foraminal stenosis. IMPRESSION: 1. Motion-degraded examination of the thoracic and lumbar spine. 2. No thoracic or lumbar epidural fluid collection. No thoracic cord compression or cauda equina impingement. 3. STIR bright signal is present within the anterior aspect of the T9-T10 disc space with mild T2 bright signal within the adjacent T9 and T10 vertebral bodies and ventral paraspinal soft tissues. Although the findings could be related to degenerative change, osteomyelitis/discitis can give a similar appearance and should be strongly considered. 4. No evidence of osteomyelitis/discitis of the lumbar spine. 5. Degenerative changes of the lumbar spine with central canal and foraminal narrowing as detailed above. These findings can be correlated with the patient's symptoms and neurological examination. 6. Patchy T2 bright signal within the lumbar posterior paraspinal musculature, which may be due to myositis. 7. Heterogeneous marrow, which may be due to heterogeneous red marrow transformation or osteoporosis. A preliminary report was issued to the emergency room by the [facility] service 10/11/2022 at 10:33 PM. WSN: [id number] Ordering Physician: Casa Rao Dictated By: Diego Georges MD Dictated Date/Time: 10/12/22 9:41 am Reviewed By: Diego Georges MD Signed By: Diego Georges MD Signed Date/Time: 10/12/22 9:41 am Transcribed By: JAIME Transcribed Date/Time: 10/12/22 9:17 am Patient Care team information Care Team Personnel Name: Nahed Crain RN Position: [facility] SN RN Member Role: Primary Care Nurse Name: Lex Tillman RN Position: [facility] RN Member Role: Primary Care Nurse Name: Shabana Newton MD Position: [facility] Primary Care Physician Member Role: PCP Address: Address: [address] [place] [address]- Name: Tamra Perez RN Position: [facility] RN Member Role: Primary Care Nurse Name: Wu Lake RN Position: [facility] RN Member Role: Primary Care Nurse Name: Bobby Quintanilla RN Position: [facility] RN Member Role: Primary Care Nurse Name: Yennifer ORR Attending Position: [facility] ED Medicine MD Name: Amalia Ma Position: [facility] ED OA Charge Member Role: ED Associate Name: Nilda Kendall RN Position: [facility] ED RN W/OE and Tasks Member Role: Patient Care Provider Name: Calli Galvez NP Position: [facility] Associate Professional Member Role: ED Physician Melt Down Furnace Operator Address: Address: [address] [place] [address] [place] [address]- Name: Gricelda Sharpe Position: [facility] ED TA [facility] Member Role: Back Digger Operator Care Team Related Persons Name: MARK MIMS Address: home [address] [place] [id number]
--- OUTSIDE RECORDS SUMMARY | 2023-05-28 20:41 | XMS_ITS | Continuity of Care Document ---
Author Name Unknown Organization [facility] Address [address] [place] [address]- Care Team Providers Care Passenger Car Conductor Name Role Phone Shabana Newton MD Primary Care Physician En[place] [facility] [place](s): 03/15/23 - 04/14/23 [facility] [address] [place] [id number]- Allergies, Adverse Reactions, Alerts Substance Reaction Severity [...] 03/07/23 20:14:00 EDT, Route to Pharmacy Electronically, [facility] # [facility], Partial fill upon patient [...] retention. follow up with pcp and call [facility] urology to schedule outpatient appt for furthermgmt and refills., # 30 each, Refills 11, Tot. Re... Start Date: 02/28/23 Stop Date: 02/23/24 Status: Ordered gabapentin 300 mg oral capsule See Instructions, 1 capsule By Mouth morning and noon and 2 capsules at bedtime, # 120 each, Refills 5, Tot. Refills 5, Maintenance, 02/09/23 8:50:00 EDT, Instructions Replace Required Details, [facility], [facility] # [facility],... Start Date: 02/09/23 Status: Ordered melatonin 3 mg oral tablet [...] EDT, Tablet Start Date: 01/31/23 Status: Ordered omeprazole 20 mg oral enteric coated capsule 1 capsule = 20 mg, By Mouth, Daily, # 90 capsule, 3 Refills, Maintenance, 10/20/22 12:58:00 EDT, ECCapsule, [facility] # [facility], 178, cm, 10/20/22 6:36:00 EDT, Height Start Date: 10/20/22 Status: Ordered Vitamin B12 1000 mcg oral [...] Team Personnel Name: Fadumo Aguilera RN Position: [facility] RN Member Role: Primary Care Nurse Name: Mookie Jacobson MD Position: [facility] Renal MD Member Role: Lifetime Consulting Physician Address: Address: [address] [facility] [place] [address]- [place] Name: Nahed Crain RN Position: [facility] SN RN Member Role: Primary Care Nurse Name: Thalia Murcia RN Position: S RN Member Role: Primary Care Nurse Name: Shabana Newton MD Position: [facility] Physician - Primary Care Member Role: PCP Address: Address: [address] [place] [address] [place] [address]- [place] Name: Giorgi Schuster RN Position: [facility] RN Member Role: Primary Care Nurse Name: Jayashree Campo RN Position: [facility] RN Cameron Member Role: Primary Care Nurse Name: Daniel Dumont DO Position: [facility] Renal MD Member Role: Lifetime Consulting Physician Address: Address: [address] [facility] [place] [address]- [place] Name: Tamra Perez RN Position: [facility] RN Member Role: Primary Care Nurse Name: Haley Tilley RN Position: [facility] RN Member Role: Primary Care Nurse Name: Ruchi Irwin RN Position: [facility] RN Member Role: Primary Care Nurse Name: Bobby Quintanilla RN Position: [facility] RN Member Role: Primary Care Nurse Name: Kg Blake MD Position: [facility] Renal MD Member Role: Lifetime Consulting Physician Address: Address: [address] [facility] [address] [facility] [place] [address]- [place] Name: Tena Holden RN Position: [facility] RN Member Role: Primary Care Nurse Name: Shon Fleming MD Position: [facility] Renal MD Member Role: Lifetime Consulting Physician Address: Address: [address] [facility] [address]- [place] Name: Katiuska Benito LPN Position: S RN Member Role: Primary Care Nurse Care Team Related Persons Name: STAR MIMS Address: home [address] [place] [address]
--- OUTSIDE RECORDS SUMMARY | 2023-05-28 20:41 | XMS_ITS | Continuity of Care Document ---
Author Name Unknown Organization [facility] Address [address] [place] [address]- Care Team Providers Care Life Cycle Assessment Analyst Name Role Phone Shabana Newton MD Primary Care Physician Encounter 03/16/23 - 04/17/23 [facility] [address] [place] [address]- Discharge Disposition: CLIENT NO LONGER REQUIRES SKILLED CARE Allergies, Adverse Reactions, Alerts Substance Reaction Severity [...] 03/07/23 20:14:00 EDT, Route to Pharmacy Electronically, [facility] # [facility], Partial fill upon patient [...] retention. follow up with pcp and call [facility] urology to schedule outpatient appt for furthermgmt and refills., # 30 each, Refills 11, Tot. Re... Start Date: 02/28/23 Stop Date: 02/23/24 Status: Ordered gabapentin 300 mg oral capsule See Instructions, 1 capsule By Mouth morning and noon and 2 capsules at bedtime, # 120 each, Refills 5, Tot. Refills 5, Maintenance, 02/09/23 8:50:00 EDT, Instructions Replace Required Details, [facility], [facility] # [facility],... Start Date: 02/09/23 Status: [...] 3 Refills, Maintenance, 10/20/22 12:58:00 EDT, ECCapsule, [facility] # [facility], 178, cm, 10/20/22 6:36:00 [...] Team Personnel Name: Fadumo Aguilera RN Position: [facility] RN Member Role: Primary Care Nurse Name: Mookie Jacobson MD Position: [facility] Renal MD Member Role: Lifetime Consulting Physician Address: Address: [address] [place] [address]- [place] Name: Nahed Crain RN Position: [facility] SN RN Member Role: Primary Care Nurse Name: Thalia Murcia RN Position: S RN Member Role: Primary Care Nurse Name: Shabana Newton MD Position: [facility] Physician - Primary Care Member Role: PCP Address: Address: [address] [facility] [place] [address]- [place] Name: Giorgi Schuster RN Position: [facility] RN Member Role: Primary Care Nurse Name: Jayashree Campo RN Position: [facility] RN Cameron Member Role: Primary Care Nurse Name: Daniel Dumont DO Position: [facility] Renal MD Member Role: Lifetime Consulting Physician Address: Address: [address] [facility] [address] [facility] [place] [address]- [place] Name: Tamra Perez RN Position: [facility] RN Member Role: Primary Care Nurse Name: Haley Tilley RN Position: [facility] RN Member Role: Primary Care Nurse Name: Ruchi Irwin RN Position: [facility] RN Member Role: Primary Care Nurse Name: Bobby Quintanilla RN Position: S RN Member Role: Primary Care Nurse Name: Kg Blake MD Position: [facility] Renal MD Member Role: Lifetime Consulting Physician Address: Address: [address] [facility] [address] [facility] [place] [address]- [place] Name: Tena Holden RN Position: [facility] RN Member Role: Primary Care Nurse Name: Shon Fleming MD Position: [facility] Renal MD Member Role: Lifetime Consulting Physician Address: Address: [address] [facility] [place] [address]- [place] Name: Katiuska Benito LPN Position: S RN Member Role: Primary Care Nurse Care Team Related Persons Name: STAR MIMS Address: home [address] [place] [address]
--- OUTSIDE RECORDS SUMMARY | 2023-05-28 20:41 | XMS_ITS | Continuity of Care Document ---
Author Name Unknown Organization [facility] Address [address] [place] [address]- Care Team Providers Care Software Quality Engineer Name Role Phone Shabana Newton MD Primary Care Physician [phone] [place] [facility] [place]04[place]23 - 02/03/[address] [address]- Attending Physician: AdmChetan chandler Admitting Physician: Admtr, Ar8 Referring Physician: Admtr, Ar8 Allergies, Adverse Reactions, [...] opioid drug. Start Date: 01/31/23 Status: Ordered atorvastatin 40 mg oral tablet = 40 mg, By Mouth, Daily, 0 Refills, Maintenance, 01/31/23 9:10:00 EDT, Tablet, Partial fill upon patient request [...] opioid drug. Start Date: 01/31/23 Status: Ordered DAPTOmycin 500 mg intravenous injection = 600 mg, IV Infusion, Every 24 hours, completion date 02/09, 0 Refills, Maintenance, 01/18/23 12:10:00 EDT, Partial fill upon patient request if the prescription is for a schedule II opioid drug. Start Date: 01/18/23 Stop Date: 02/09/23 Status: Ordered docusate-senna 50 mg-8.6 mg oral [...] retention. follow up with pcp and call [facility] urology to schedule outpatient appt for furthermgmt and refills., # 30 tablet, Refills 0, Tot. R... Start Date: 01/31/23 Status: Ordered folic acid 1 mg oral tablet 1 mg, By Mouth, Daily, 1 tablet daily for nutrition. refills-contact pcp or purchase over the counter., # 30 tablet, Refills 0, Tot. Refills 0, Maintenance, 01/31/23 9:57:00 EDT, Route to Pharmacy Electronically, [facility], NO FURTHER R... Start Date: 01/31/23 Status: Ordered gabapentin 100 mg oral capsule 200 mg, 2, capsule, By Mouth, Daily at bedtime, Take 2 capsules of 100mg along with 1 capsule of 300mg for total nighttime dose of 500mg of gabapentin. further refills - contact pcp, # 28 capsule, Refills 0, Tot. Refills 0, Maintenance, 01/31/23 10:27... Start Date: 01/31/23 Stop Date: 02/14/23 Status: Ordered gabapentin 300 mg oral capsule 300 mg, 1, capsule, By Mouth, 3 times a day, 1 capsule in the morning, 1 capsule in the afternoon. For bedtime take 1 capsule and 2 capsules of 100mg for total bedtime dose of 500mg., # 42 capsule, Refills 3, Tot. Refills 3, Maintenance, 02/01/23 12:5... Start Date: 02/01/23 Stop Date: 03/29/23 Status: Ordered lidocaine 5% topical film See Instructions, Apply to right rib area where pain is, daily for 12 hours. remove patches after 12 hours. please purchase 4% or 5% topical films over the counter., # 30 patch, 0 Refills, Maintenance, 01/31/23 9:53:00 EDT, Patch, [facility] Start Date: 01/31/23 Status: Ordered melatonin 3 mg oral tablet [...] REC Powder,... Start Date: 01/31/23 Status: Ordered Multivitamin Tablet 1 tablet, By Mouth, Daily, 0 Refills, Maintenance, 01/31/23 9:11:00 EDT, Tablet, Partial fill upon patient request if the prescription is for a schedule II opioid drug. Start Date: 01/31/23 Status: Ordered multivitamin with minerals Multiple Vitamins with Minerals oral tablet 1 tablet, By Mouth, Daily, # 30 tablet, 0 Refills, Maintenance, 01/31/23 8:59:00 EDT, Tablet Start Date: 01/31/23 Status: Ordered omeprazole 20 mg oral enteric coated capsule 1 capsule = 20 mg, By Mouth, Daily, # 90 capsule, 3 Refills, Maintenance, 10/20/22 12:58:00 EDT, ECCapsule, [facility] # [facility], 178, cm, 10/20/22 6:36:00 EDT, Height Start Date: 10/20/22 Status: Ordered oxyCODONE 10 mg oral tablet 1 tablet = 10 mg, By Mouth, Every 6 hours, hold for sedation/sleepiness, altered mental status, confusion, # 28 tablet, 0 Refills, Maintenance, 02/01/23 12:53:00 EDT, Tablet, [facility] # 302, Partial fill upon patient request if the prescription... Start Date: 02/01/23 Stop Date: 02/08/23 Status: Ordered oxyCODONE 5 mg oral tablet 5 mg, By Mouth, Every 12 hours, PRN, hold for sedation/sleepiness, altered mental status, confusion. Please ensure at least 2 hrs from last dose or next dose before administered., # 14 each, Refills 0, Tot. Refills 0, Maintenance, Pain , Severe, 02/01... Start Date: 02/01/23 Stop Date: 02/08/23 Status: Ordered pyridoxine 50 mg oral tablet 50 mg, By Mouth, Daily, 1 tablet daily for nutrition. Contact pcp or purchase over the counter for further refills., # 30 tablet, Refills 0, Tot. Refills 0, Maintenance, 01/31/23 9:55:00 EDT, Route to Pharmacy Electronically, [facility],... Start Date: 01/31/23 Status: Ordered simethicone 80 mg oral tablet, chewable 80 mg, Chew, 3 times a day, PRN, for 14 days, 1 tablet chewable up to 3 times a day as needed for gas pain. refills-contact pcp or purchase over the counter., # 42 tablet, Refills 0, Tot. Refills 0, Acute 02/14/23 9:56:00 EDT, Gas, 01/31/23 9:56:00 ED... Start Date: 01/31/23 Stop Date: 02/14/23 Status: Ordered thiamine 100 mg oral tablet 100 mg, By Mouth, Daily, 1 tablet daily for nutrition. refills-contact pcp or purchase over the counter., # 90 tablet, Refills 0, Tot. Refills 0, Maintenance, 01/31/23 9:57:00 EDT, Route to Pharmacy Electronically, [facility], NO FURTHER... Start Date: 01/31/23 Status: Ordered Vitamin B12 1000 mcg oral [...] right knee Confirmed Active Osteomyelitis Confirmed Active Tubular adenoma 1 Confirmed 05/09/12 Active 1tubular adenoma in 2018, will need repeat screening colonoscopy in 2022 Social History Social History Type Response Smoking Status Former smoker; Type: Cigarettes; Started at age: 9; Stopped at age: 29; entered on: 08/25/14 Sex Patient Care team information Care Team Personnel Name: Fadumo Aguilera RN Position: [facility] RN Member Role: Primary Care Nurse Name: Mookie Jacobson MD Position: [facility] Renal Member Role: Lifetime Consulting Physician Address: Address: [address] [place] [address], [address] Name: Nahed Crain RN Position: [facility] RN Member Role: Primary Care Nurse Name: Lex Tillman RN Position: [facility] RN Member Role: Primary Care Nurse Name: Thalia Murcia RN Position: S RN Member Role: Primary Care Nurse Name: Shabana Newton MD Position: [facility] Physician - Primary Care Member Role: PCP Address: Address: [address] [place] [address] [place] [address]- [place] Name: Giorgi Schuster RN Position: [facility] RN Member Role: Primary Care Nurse Name: Jayashree Campo RN Position: [facility] RN Supv Member Role: Primary Care Nurse Name: Christi Feliciano Position: [facility] RN Member Role: Primary Care Nurse Name: Tamra Perez RN Position: [facility] RN Member Role: Primary Care Nurse Name: Wu Lake RN Position: [facility] RN Member Role: Primary Care Nurse Name: Haley Tilley RN Position: [facility] RN Member Role: Primary Care Nurse Name: Ruchi Irwin RN Position: [facility] RN Member Role: Primary Care Nurse Name: Bobby Quintanilla RN Position: [facility] RN Member Role: Primary Care Nurse Name: Kg Blake MD Position: [facility] Renal MD Member Role: Lifetime Consulting Physician Address: Address: [address] [place] [address] [address] [facility] [place] [address]- [place] Name: Fiorella Velazquez RN Position: [facility] RN Supv Member Role: Primary Care Nurse Name: Tena Holden RN Position: [facility] RN Member Role: Primary Care Nurse Name: Shon Fleming MD Position: [facility] Renal MD Member Role: Lifetime Consulting Physician Address: Address: [address] [place] [address] [facility] [place] [address]- [place] Name: Katiuska Benito LPN Position: [facility] RN Member Role: Primary Care Nurse Care Team Related Persons Name: FELICITA MARK Address: home [address] [place] [address]
--- OUTSIDE RECORDS SUMMARY | 2023-05-28 20:41 | XMS_ITS | Continuity of Care Document ---
Author Name Unknown Organization [facility] Address [address] [place] [address]- Care Team Providers Care Marketing Strategist Name Role Phone Shabana Newton MD Primary Care Physician Encounter [facility] [place] Date(s): 01/16/23 - 02/15/23 [facility] [address] [place] [id number] Allergies, Adverse Reactions, Alerts Substance Reaction Severity [...] Date: 01/18/23 Stop Date: 02/09/23 Status: Ordered diazepam 5 mg oral tablet 5 mg, 1, tablet, By Mouth, Once, one hour before MRI, # 1 tablet, Refills 0, Tot. Refills 0, Soft Stop, 02/09/23 8:56:00 EDT, Route to Pharmacy Electronically, [facility], Partial fill upon patient request if the prescription is for a sched... Start Date: 02/09/23 Status: Ordered docusate-senna 50 mg-8.6 [...] retention. follow up with pcp and call [facility] urology to schedule outpatient appt for furthermgmt and refills., # 30 tablet, Refills 0, Tot. R... Start Date: 01/31/23 Status: Ordered folic acid 1 mg oral tablet 1 mg, By Mouth, Daily, 1 tablet daily for nutrition. refills-contact pcp or purchase over the counter., # 30 tablet, Refills 0, Tot. Refills 0, Maintenance, 01/31/23 9:57:00 EDT, Route to Pharmacy Electronically, [facility], NO FURTHER R... Start Date: 01/31/23 Status: Ordered gabapentin 300 mg oral capsule See Instructions, 1 capsule By Mouth morning and noon and 2 capsules at bedtime, # 120 each, Refills 5, Tot. Refills 5, Maintenance, 02/09/23 8:50:00 EDT, Instructions Replace Required Details, [facility],... Start Date: 02/09/23 Status: [...] Maintenance, 10/20/22 12:58:00 EDT, ECCapsule, [facility], 178, cm, 10/20/22 6:36:00 EDT, Height Start Date: 10/20/22 Status: Ordered oxyCODONE 10 mg oral tablet 1 tablet = 10 mg, By Mouth, Every 8 hours, hold for sedation/sleepiness, altered mental status, confusion, # 42 tablet, 0 Refills, Maintenance, 02/09/23 8:52:00 EDT, Tablet, [facility] # [facility], Partial fill upon patient request if the prescription... Start Date: 02/09/23 Stop Date: 02/23/23 Status: Ordered pyridoxine 50 mg oral tablet 50 mg, By Mouth, Daily, 1 tablet daily for nutrition. Contact pcp or purchase over the counter for further refills., # 30 tablet, Refills 0, Tot. Refills 0, Maintenance, 01/31/23 9:55:00 EDT, Route to Pharmacy Electronically, [facility],... Start Date: 01/31/23 Status: Ordered thiamine 100 mg oral tablet 100 mg, By Mouth, Daily, 1 tablet daily for nutrition. refills-contact pcp or purchase over the counter., # 90 tablet, Refills 0, Tot. Refills 0, Maintenance, 01/31/23 9:57:00 EDT, Route to Pharmacy Electronically, [facility], NO FURTHER... Start Date: [...] Team Personnel Name: Fadumo Aguilera RN Position: S RN Member Role: Primary Care Nurse Name: Mookie Jacobson MD Position: [facility] Renal MD Member Role: Lifetime Consulting Physician Address: Address: [address] [place] [address], [address] [place] [address]- [place] Name: Nahed Crain RN Position: [facility] SN RN Member Role: Primary Care Nurse Name: Lex Tillman RN Position: S RN Member Role: Primary Care Nurse Name: Thalia Murcia RN Position: S RN Member Role: Primary Care Nurse Name: Shabana Newton MD Position: [facility] Physician - Primary Care Member Role: PCP Address: Address: [address] [place] [address] [place] [address]- Name: Giorgi Schuster RN Position: S RN Member Role: Primary Care Nurse Name: Jayashree Campo RN Position: [facility] RN Supv Member Role: Primary Care Nurse Name: Christi Feliciano Position: S RN Member Role: Primary Care Nurse Name: Daniel Dumont DO Position: [facility] Renal MD Member Role: Lifetime Consulting Physician Address: Address: [address] [place], [place] [address] [place] [address]- Name: Tamra Perez RN Position: [facility] RN Member Role: Primary Care Nurse Name: Haley Tilley RN Position: [facility] RN Member Role: Primary Care Nurse Name: Ruchi Irwin RN Position: [facility] RN Member Role: Primary Care Nurse Name: Bobby Quintanilla RN Position: [facility] RN Member Role: Primary Care Nurse Name: Kg Blake MD Position: [facility] Renal MD Member Role: Lifetime Consulting Physician Address: Address: [address] [place] [address] [address] [facility] [place] [place] [address]- Name: Tena Holden RN Position: [facility] RN Member Role: Primary Care Nurse Name: Shon Fleming MD Position: [facility] Renal MD Member Role: Lifetime Consulting Physician Address: Address: [address] [place] [address] [facility] [place] [address]- Name: Katiuska Benito LPN Position: [facility] RN Member Role: Primary Care Nurse Care Team Related Persons Name: MARK MIMS Address: [address] [address]
--- OUTSIDE RECORDS SUMMARY | 2023-05-28 20:41 | XMS_ITS | Continuity of Care Document ---
Author Name Unknown Organization [facility] Address [address] [place] [address]- Care Team Providers Care Business Reporting Developer Name Role Phone Shabana Newton MD Primary Care Physician [phone] Encounter [facility] [place] Date(s): 04/13/23 - 05/19/[address] [address] Attending Physician: David Campo MD Admitting Physician: David Campo MD Referring Physician: Irving Wright MD Allergies, Adverse Reactions, Alerts Substance Reaction [...] 03/07/23 20:14:00 EDT, Route to Pharmacy Electronically, [facility], Partial fill upon patient [...] retention. follow up with pcp and call [facility]rology to schedule outpatient appt for furthermgmt and refills., # 30 each, Refills 11, Tot. Re... Start Date: 02/28/23 Stop Date: 02/23/24 Status: Ordered gabapentin 300 mg oral capsule See Instructions, 1 capsule By Mouth morning and noon and 2 capsules at bedtime, # 120 each, Refills 5, Tot. Refills 5, Maintenance, 02/09/23 8:50:00 EDT, Instructions Replace Required Details, [facility], [facility],... Start Date: 02/09/23 Status: Ordered ipratropium 500 mcg/2.5 mL inhalation solution 500 mcg, 2.5, mL, Inhalation, 4 times a day, PRN, # 120 each, Refills 11, Tot. Refills 11, Maintenance, 04/18/23 12:19:00 EST, Solution, Route to Pharmacy Electronically, [id number], [facility], 175, cm, 04/13/23 1... [...] 3 Refills, Maintenance, 10/20/22 12:58:00 EDT, ECCapsule, [facility], 178, cm, 10/20/22 6:36:00 EDT, Height Start Date: 10/20/22 Status: Ordered oxyCODONE 10 mg oral tablet 1 tablet = 10 mg, By Mouth, 3 times a day, PRN Pain , Severe, for 28 days, # 84 tablet, 0 Refills, Acute 05/28/23 16:57:00 EST, 04/30/23 16:57:00 EST, [facility], Partial fill upon patientrequest [...] Team Personnel Name: Fadumo Aguilera RN Position: [facility] RN Member Role: Primary Care Nurse Name: Mookie Jacobson MD Position: [facility] Renal MD Member Role: Lifetime Consulting Physician Address: Address: [address] [place] [address] [address] [facility] [place] [address]- [place] Name: Nahed Crain RN Position: [facility] SN RN Member Role: Primary Care Nurse Name: Thalia Murcia RN Position: S RN Member Role: Primary Care Nurse Name: Shabana Newton MD Position: [facility] Physician - Primary Care Member Role: PCP Address: Address: [address] [place] [address] [place] [address]- [place] Name: Giorgi Schuster RN Position: S RN Member Role: Primary Care Nurse Name: Jayashree Campo RN Position: S RN Cameron Member Role: Primary Care Nurse Name: Daniel Dumont DO Position: [facility] Renal MD Member Role: Lifetime Consulting Physician Address: Address: [address] [place] [address] [address] [facility] [place] [address]- [place] Name: Tamra Perez RN Position: S RN Member Role: Primary Care Nurse Name: Haley Tilley RN Position: S RN Member Role: Primary Care Nurse Name: Ruchi Irwin RN Position: S RN Member Role: Primary Care Nurse Name: Bobby Quintanilla RN Position: S RN Member Role: Primary Care Nurse Name: Kg Blake MD Position: [facility] Renal MD Member Role: Lifetime Consulting Physician Address: Address: [address] [place] [address] [address] [facility] [place] [address]- [place] Name: Tena Holden RN Position: S RN Member Role: Primary Care Nurse Name: Shon Fleming MD Position: [facility] Renal MD Member Role: Lifetime Consulting Physician Address: Address: [address] [facility] [place] [address]- [place] Name: Katiuska Benito LPN Position: S RN Member Role: Primary Care Nurse Care Team Related Persons Name: STAR MIMS Address: [address] [place] [address]
--- OUTSIDE RECORDS SUMMARY | 2023-05-28 20:41 | XMS_ITS | Continuity of Care Document ---
Author Name Unknown Organization [facility] Address [address] [place] [address]- Care Team Providers Care Freelance Director Name Role Phone Shabana Newton MD Primary Care Physician [phone] Encounter [facility] Date(s): 02/14/23 - 03/16/23 [facility] [address] [place] [address]- Allergies, Adverse Reactions, Alerts Substance Reaction Severity [...] 03/07/23 20:14:00 EDT, Route to Pharmacy Electronically, [facility], Partial fill upon patient [...] Date: 01/31/23 Stop Date: 03/02/23 Status: Ordered doxycycline hyclate 100 mg oral capsule 1 capsule = 100 mg, By Mouth, 2 times a day, for 4 week(s), May take with food to minimize abdominal discomfort, # 56 capsule, 0 Refills, Acute 03/29/23 11:08:00 EDT, 03/01/23 11:08:00 EDT, Capsule, [facility] # [facility], Partial fill upon patient req... Start Date: 03/01/23 Stop Date: 03/29/23 Status: Ordered Flomax 0.4 mg oral capsule 0.4 mg, By Mouth, Daily, 1 capsule daily 30 minutes after the same meal for management of urinary retention. follow up with pcp and call [facility] urology to schedule outpatient appt [...] Instructions Replace Required Details, [facility], [facility],... Start Date: 02/09/23 Status: [...] 3 Refills, Maintenance, 10/20/22 12:58:00 EDT, ECCapsule, [facility] # 302, 178, cm, 10/20/22 6:36:00 EDT, Height Start Date: 10/20/22 Status: Ordered oxyCODONE 5 mg oral tablet 5 mg, 1, tablet, By Mouth, Every 6 hours, PRN, for 7 days, # 28 tablet, Refills 0, Tot. Refills 0, Acute 03/22/23 17:11:00 EDT, Pain , Severe, 03/15/23 17:11:00 EDT, Route to Pharmacy Electronically,[facility], Partial fill upon patient re... Start Date: 03/15/23 Stop Date: 03/22/23 Status: Ordered Vitamin B12 1000 mcg oral [...] Team Personnel Name: Fadumo Aguilera RN Position: [facility] RN Member Role: Primary Care Nurse Name: Mookie Jacobson MD Position: [facility] Renal MD Member Role: Lifetime Consulting Physician Address: Address: [address] [place] [address], [address] [address]- Name: Nahed Crain RN Position: [facility] SN RN Member Role: Primary Care Nurse Name: Lex Tillman RN Position: [facility] RN Member Role: Primary Care Nurse Name: Thalia Murcia RN Position: [facility] RN Member Role: Primary Care Nurse Name: Shabana Newton MD Position: [facility] Physician - Primary Care Member Role: PCP Address: Address: [address] [place] [address] [place] [address]- Name: Giorgi Schuster RN Position: [facility] RN Member Role: Primary Care Nurse Name: Jayashree Campo RN Position: [facility] RN Supv Member Role: Primary Care Nurse Name: Christi Feliciano Position: [facility] RN Member Role: Primary Care Nurse Name: Daniel Dumont DO Position: [facility] Renal MD Member Role: Lifetime Consulting Physician Address: Address: [address] [place] [address] [address] [facility] [place] [address]- Name: Tamra Perez RN Position: [facility] RN Member Role: Primary Care Nurse Name: Haley Tilley RN Position: S RN Member Role: Primary Care Nurse Name: Ruchi Irwin RN Position: S RN Member Role: Primary Care Nurse Name: Bobby Quintanilla RN Position: S RN Member Role: Primary Care Nurse Name: Kg Blake MD Position: [facility] Renal MD Member Role: Lifetime Consulting Physician Address: Address: [address] [place] [address] [address] [facility] [place] [address]- Name: Tena Holden RN Position: S RN Member Role: Primary Care Nurse Name: Shon Fleming MD Position: [facility] Renal MD Member Role: Lifetime Consulting Physician Address: Address: [address] [place] [address] [facility] [place], [place] [address] Name: Katiuska Benito LPN Position: S RN Member Role: Primary Care Nurse Care Team Related Persons Name: STAR MIMS Address: home [address] [place] [address]
--- OUTSIDE RECORDS SUMMARY | 2023-05-28 20:41 | XMS_ITS | Continuity of Care Document ---
Author Name Unknown Organization [facility] Address [address] [place] [address]- Care Team Providers Care Final Touch Up Painter Name Role Phone Shabana Newton MD Primary Care Physician [place] [facility] [place] - 03/30/23 [facility] [address] [place] [id number] Allergies, Adverse [...] 03/07/23 20:14:00 EDT, Route to Pharmacy Electronically, [facility] # [facility], Partial fill upon patient [...] retention. follow up with pcp and call [facility] urology to schedule outpatient appt [...] Care Nurse Name: Mookie Jacobson MD Position: [facility] Renal MD Member Role: Lifetime Consulting Physician Address: Address: [address] [facility], [address] [place] [address]- [place] Name: Nahed Crain RN Position: [facility] SN RN Member Role: Primary Care Nurse Name: Thalia Murcia RN Position: S RN Member Role: Primary Care Nurse Name: Shabana Newton MD Position: [facility] Physician - Primary Care Member Role: PCP Address: Address: [address] [place] [address] [place] [address]- [place] Name: Giorgi Schuster RN Position: S RN Member Role: Primary Care Nurse Name: Jayashree Campo RN Position: [facility] RN Cameron Member Role: Primary Care Nurse Name: Daniel Dumont DO Position: [facility] Renal MD Member Role: Lifetime Consulting Physician Address: Address: [address] [place] [address] [address] [facility] [place] [address]- [place] Name: Tamra Perez RN Position: S RN Member Role: Primary Care Nurse Name: Haley Tilley RN Position: S RN Member Role: Primary Care Nurse Name: Ruchi Irwin RN Position: S RN Member Role: Primary Care Nurse Name: Bobby Quintanilla RN Position: S RN Member Role: Primary Care Nurse Name: Kg Blake MD Position: [facility] Renal MD Member Role: Lifetime Consulting Physician Address: Address: [address] [place] [address] [address] [facility] [place], [place] [address]- [place] Name: Tena Holden RN Position: S RN Member Role: Primary Care Nurse Name: Shon Fleming MD Position: [facility] Renal MD Member Role: Lifetime Consulting Physician Address: Address: [address] [place] [address] [facility] [place] [address]- [place] Name: Katiuska Benito LPN Position: S RN Member Role: Primary Care Nurse Care Team Related Persons Name: STAR MIMS Address: home [address] [place] [address]
--- OUTSIDE RECORDS SUMMARY | 2023-05-28 20:41 | XMS_ITS | Continuity of Care Document ---
Author Name Unknown Organization [facility] Address [address] [place] [address]- Care Team Providers Care Behavioral Health Clinician Name Role Phone Shabana Newton MD Primary Care Physician En[place] [facility] [place](s[place] 02/28/23 - 03/30/23 [facility] [address] [place] [id number] Allergies, Adverse Reactions, Alerts Substance Reaction Severity [...] 03/07/23 20:14:00 EDT, Route to Pharmacy Electronically, [facility] # [facility], Partial fill upon patient [...] retention. follow up with pcp and call [facility] urology to schedule outpatient appt for furthermgmt and refills., # 30 each, Refills 11, Tot. Re... Start Date: 02/28/23 Stop Date: 02/23/24 Status: Ordered gabapentin 300 mg oral capsule See Instructions, 1 capsule By Mouth morning and noon and 2 capsules at bedtime, # 120 each, Refills 5, Tot. Refills 5, Maintenance, 02/09/23 8:50:00 EDT, Instructions Replace Required Details, [facility], [facility],... Start Date: 02/09/23 [...] 3 Refills, Maintenance, 10/20/22 12:58:00 EDT, ECCapsule, [facility] # [facility], 178, cm, 10/20/22 [...] Care Nurse Name: Mookie Jacobson MD Position: [facility] Renal MD Member Role: Lifetime Consulting Physician Address: Address: [address] [facility], [address] [place] [address]- [place] Name: Nahed Crain RN Position: [facility] SN RN Member Role: Primary Care Nurse Name: Thalia Murcia RN Position: S RN Member Role: Primary Care Nurse Name: Shabana Newton MD Position: [facility] Physician - Primary Care Member Role: PCP Address: Address: [address] [place] [address] [place] [address]- [place] Name: Giorgi Schuster RN Position: S RN Member Role: Primary Care Nurse Name: Jayashree Campo RN Position: [facility] RN Cameron Member Role: Primary Care Nurse Name: Daniel Dumont DO Position: [facility] Renal MD Member Role: Lifetime Consulting Physician Address: Address: [address] [place] [address] [address] [facility] [place] [address]- [place] Name: Tamra Perez RN Position: S RN Member Role: Primary Care Nurse Name: Haley Tilley RN Position: S RN Member Role: Primary Care Nurse Name: Ruchi Irwin RN Position: S RN Member Role: Primary Care Nurse Name: Bobby Quintanilla RN Position: S RN Member Role: Primary Care Nurse Name: Kg Blake MD Position: [facility] Renal MD Member Role: Lifetime Consulting Physician Address: Address: [address] [place] [address] [address] [facility] [place], [place] [address]- [place] Name: Tena Holden RN Position: S RN Member Role: Primary Care Nurse Name: Shon Fleming MD Position: [facility] Renal MD Member Role: Lifetime Consulting Physician Address: Address: [address] [place] [address] [facility] [place] [address]- [place] Name: Katiuska Benito LPN Position: S RN Member Role: Primary Care Nurse Care Team Related Persons Name: STAR MIMS Address: home [address] [place] [address]
--- OUTSIDE RECORDS SUMMARY | 2023-05-28 20:41 | XMS_ITS | Continuity of Care Document ---
Author Name Unknown Organization [facility] Address [address] [place] [address]- Care Team Providers Care Fraternity Adviser Name Role Phone Shabana Newton MD Primary Care Physician [phone] Encounter [facility] Date(s): 04/23/23 - 05/23/23 [facility] [address] [place] [id number] Allergies, Adverse Reactions, Alerts Substance Reaction Severity [...] 03/07/23 20:14:00 EDT, Route to Pharmacy Electronically, [facility] # [facility], Partial fill upon patient [...] retention. follow up with pcp and call [facility] urology to schedule outpatient appt for furthermgmt and refills., # 30 each, Refills 11, Tot. Re... Start Date: 02/28/23 Stop Date: 02/23/24 Status: Ordered gabapentin 300 mg oral capsule See Instructions, 1 capsule By Mouth morning and noon and 2 capsules at bedtime, # 120 each, Refills 5, Tot. Refills 5, Maintenance, 02/09/23 8:50:00 EDT, Instructions Replace Required Details, [facility], [email or web address] # [facility],... Start Date: 02/09/23 Status: Ordered ipratropium 500 mcg/2.5 mL inhalation solution 500 mcg, 2.5, mL, Inhalation, 4 times a day, PRN, # 120 each, Refills 11, Tot. Refills 11, Maintenance, 04/18/23 12:19:00 EST, Solution, Route to Pharmacy Electronically, [id number], [facility] # [facility], 175, cm, 04/13/23 1... [...] 3 Refills, Maintenance, 10/20/22 12:58:00 EDT, ECCapsule, [facility] # 302, 178, cm, 10/20/22 6:36:00 EDT, Height Start Date: 10/20/22 Status: Ordered oxyCODONE 10 mg oral tablet 1 tablet = 10 mg, By Mouth, 3 times a day, PRN Pain , Severe, for 28 days, # 84 tablet, 0 Refills, Acute 05/28/23 16:57:00 EST, 04/30/23 16:57:00 EST, [facility] # [facility], Partial fill upon patientrequest [...] Team Personnel Name: Fadumo Aguilera RN Position: [facility] RN Member Role: Primary Care Nurse Name: Mookie Jacobson MD Position: [facility] Renal MD Member Role: Lifetime Consulting Physician Address: Address: [address] [place] [address] [address] [place] [address]- Name: Nahed Crain RN Position: [facility] SN RN Member Role: Primary Care Nurse Name: Thalia Murcia RN Position: [facility] RN Member Role: Primary Care Nurse Name: Shabana Newton MD Position: [facility] Physician - Primary Care Member Role: PCP Address: Address: [address] [place] [address] [place] [address]- Name: Giorgi Schuster RN Position: [facility] RN Member Role: Primary Care Nurse Name: Jayashree Campo RN Position: [facility] RN Supv Member Role: Primary Care Nurse Name: Daniel Dumont DO Position: S Renal MD Member Role: Lifetime Consulting Physician Address: Address: [address] [facility] [address] [facility] [place] [address]- Name: Tamra Perez RN Position: S RN Member Role: Primary Care Nurse Name: Haley Tilley RN Position: S RN Member Role: Primary Care Nurse Name: Ruchi Irwin RN Position: S RN Member Role: Primary Care Nurse Name: Bobby Quintanilla RN Position: S RN Member Role: Primary Care Nurse Name: Kg Blake MD Position: [facility] Renal MD Member Role: Lifetime Consulting Physician Address: Address: [address] [place] [address] [address] [facility] [place] [address]- Name: Tena Holden RN Position: S RN Member Role: Primary Care Nurse Name: Shon Fleming MD Position: [facility] Renal MD Member Role: Lifetime Consulting Physician Address: Address: [address] [place] [address] [facility] [address]- Name: Katiuska Benito LPN Position: S RN Member Role: Primary Care Nurse Care Team Related Persons Name: STAR MIMS Address: [place] [address] [place] [address]
--- OUTSIDE RECORDS SUMMARY | 2023-05-28 20:41 | XMS_ITS | Continuity of Care Document ---
Author Name Unknown Organization [facility] Address [address] [place] [address], [address] [place] [address]- Care Team Providers Care Front Desk Assistant Name Role Phone Shabana Newton MD Primary Care Physician [phone] Encounter [facility] [place] Date(s): 04/26/23 - 05/03/23 [facility] [address] [place] [address], [address] [place] [address]- Attending Physician: Stephy Byers MD Referring Physician: Shabana Newton MD Allergies, Adverse Reactions, Alerts Substance Reaction [...] 03/07/23 20:14:00 EDT, Route to Pharmacy Electronically, [facility] # [facility], Partial fill upon [...] retention. follow up with pcp and call [facility] urology to schedule outpatient appt [...] Instructions Replace Required Details, [facility], [facility] # [facility],... Start Date: 02/09/23 Status: Ordered ipratropium 500 mcg/2.5 mL inhalation solution 500 mcg, 2.5, mL, Inhalation, 4 times a day, PRN, # 120 each, Refills 11, Tot. Refills 11, Maintenance, 04/18/23 12:19:00 EST, Solution, Route to Pharmacy Electronically, [id number], [facility] # 302, 175, cm, 04/13/23 1... [...] Refills, Maintenance, 10/20/22 12:58:00 EDT, ECCapsule, [facility] # 302, 178, cm, 10/20/22 6:36:00 EDT, Height Start Date: 10/20/22 Status: Ordered oxyCODONE 10 mg oral tablet 1 tablet = 10 mg, By Mouth, 3 times a day, PRN Pain , Severe, for 28 days, # 84 tablet, 0 Refills, Acute 05/28/23 16:57:00 EST, 04/30/23 16:57:00 EST, [facility] # 302, Partial fill upon patientrequest [...] will need repeat screening colonoscopy in 2022 Vital Signs Most recent to oldest [Reference Range]: 1 Height 175 cm (04/26/23 3:02 PM) Weight 71.1 kg (04/26/23 3:02 PM) Body Mass Index [18.5-24.99 kg/m2] 23.22 kg/m2 (04/26/23 3:02 PM) Social History Social History Type Response Smoking Status Former smoker, quit more than 30 days ago; Other: quit 1979; entered on: 03/13/23 Sex Patient Care team information Care Team Personnel Name: Fadumo Aguilera RN Position: [facility] RN Member Role: Primary Care Nurse Name: Mookie Jacobson MD Position: [facility] Renal MD Member Role: Lifetime Consulting Physician Address: Address: [address] [place] [address] [address] [facility] [place] [place] [address] Name: Nahed Crain RN Position: [facility] SN RN Member Role: Primary Care Nurse Name: Thalia Murcia RN Position: S RN Member Role: Primary Care Nurse Name: Shabana Newton MD Position: [facility] Physician - Primary Care Member Role: PCP Address: Address: [address] [facility] [place] [address]- [place] Name: Giorgi Schuster RN Position: S RN Member Role: Primary Care Nurse Name: Jayashree Campo RN Position: [facility] RN Supv Member Role: Primary Care Nurse Name: Daniel Dumont DO Position: [facility] Renal MD Member Role: Lifetime Consulting Physician Address: Address: [address] [facility] [address] [facility] [place] [address]- [place] Name: Tamra Perez RN Position: [facility] RN Member Role: Primary Care Nurse Name: Haley Tilley RN Position: S RN Member Role: Primary Care Nurse Name: Ruchi Irwin RN Position: S RN Member Role: Primary Care Nurse Name: Bobby Quintanilla RN Position: [facility] RN Member Role: Primary Care Nurse Name: Kg Blake MD Position: [facility] Renal MD Member Role: Lifetime Consulting Physician Address: Address: [address] [place] [address] [address] [facility] [place] [address]- [place] Name: Tena Holden RN Position: [facility] RN Member Role: Primary Care Nurse Name: Shon Fleming MD Position: [facility] Renal MD Member Role: Lifetime Consulting Physician Address: Address: [address] [facility] [place] [address]- [place] Name: Katiuska Benito LPN Position: S RN Member Role: Primary Care Nurse Care Team Related Persons Name: STAR MIMS Address: home [address] [place] [address]
--- OUTSIDE RECORDS SUMMARY | 2023-05-28 20:41 | XMS_ITS | Continuity of Care Document ---
Author Name Unknown Organization [facility] Address [address] [place] [address]- Care Team Providers Care Remote Encoding Center Manager Name Role Phone Shabana Newton MD Primary Care Physician [phone] [place] [facility] [place] 12/04/22 - 01/26/[address] [address]- Encounter Diagnosis Low back pain, unspecified(Final) - Discharge Disposition: A-D/C Home Attending Physician: Janie Dunbar Admitting Physician: Not on Staff, Admitting MD Referring Physician: Shabana Newton MD Allergies, [...] 05/15/22 9:40:00 EST, Route to Pharmacy Electronically, [facility] # 302, 177.8, cm, 05/15/22 9:07:00 [...] 3 Refills, Maintenance, 05/15/22 9:40:00 EST, Tablet, [facility] # 302, Partial fill upon patient request, 177.8, cm, 05/15/22 9:07:00 EST, Height Start Date: 05/15/22 Stop Date: 09/12/22 Status: Ordered celecoxib 200 mg oral capsule 1 capsule = 200 mg, By Mouth, 2 times a day, # 60 capsule, 0 Refills, Maintenance, 01/18/23 11:54:00 EDT, Capsule, [facility] # 302, Partial fill upon patient request if the prescription is for a schedule II opioid drug., 175, cm, 01/18/23 7:53:0... Start Date: 01/18/23 Stop Date: 02/17/23 Status: Ordered cyclobenzaprine 10 mg oral tablet 10 mg, 1, tablet, By Mouth, 3 times a day, PRN, for 10 days, # 30 tablet, Refills 0, Tot. Refills 0, Acute 01/28/23 12:07:00 EDT, for spasm, 01/18/23 12:07:00 EDT, Route to Pharmacy Electronically, [facility] # 302, Partial fill upon patient requ... Start Date: 01/18/23 Stop Date: 01/28/23 Status: Ordered DAPTOmycin 500 mg intravenous injection = 600 mg, IV Infusion, Every 24 hours, completion date 02/09, 0 Refills, Maintenance, 01/18/23 12:10:00 EDT, Partial fill upon patient request if the prescription is for a schedule II opioid drug. Start Date: 01/18/23 Stop Date: 02/09/23 Status: Ordered Epiderm Epiderm, Topically, Refills 0, Maintenance, 01/22/23 8:45:00 EDT, Supply Start Date: 01/22/23 Status: Ordered Impoyz 0.025% topical cream 1 application, Topically, 2 times a day, 0 Refills, Maintenance, 01/22/23 8:44:00 EDT, Cream, Partial fill upon patient request if the prescription is for a schedule II opioid drug. Start Date: 01/22/23 Status: Ordered MiraLax oral powder for reconstitution = 17 Gm, By Mouth, Daily, dissolve in water before taking, # 255 Gm, 0 Refills, Maintenance, 01/11/23 17:01:00 EDT, REC Powder, [facility], Partial fill upon patient request if the prescription is for a schedule II opioid drug., 17 Gm By... Start Date: 01/11/23 Status: Ordered multivitamin with minerals Multiple Vitamins with Minerals oral tablet 1 tablet, By Mouth, Daily, # 30 tablet, 0 Refills, Maintenance, Tablet Start Date: 02/27/12 Status: Ordered omeprazole 20 mg oral enteric coated capsule 1 capsule = 20 mg, By Mouth, Daily, # 90 capsule, 3 Refills, Maintenance, 10/20/22 12:58:00 EDT, ECCapsule, [facility] # 302, 178, cm, 10/20/22 6:36:00 EDT, Height Start Date: 10/20/22 Status: Ordered oxyCODONE 5 mg oral tablet 10 mg, By Mouth, Every 6 hours, PRN, # 60 tablet, Refills 0, Tot. Refills 0, Acute 02/11/23 8:00:00EDT, Pain , Moderate, 01/11/23 16:59:00 EDT, Route to Pharmacy Electronically, [facility], Partial fill upon patient request if the presc... Start Date: 01/11/23 Stop Date: 02/11/23 Status: Ordered Senna 8.6 mg oral tablet 8.6 mg, 1, tablet, By Mouth, Daily, # 50 tablet, Refills 0, Tot. Refills 0, Maintenance, 01/11/23 17:01:00 EDT, Route to Pharmacy Electronically, [facility] Tablet, Partial fill upon patient request if the prescription is for a schedule... Start Date: 01/11/23 Status: Ordered Super B Complex 1 tablet, [...] Team Personnel Name: Fadumo Aguilera RN Position: [facility] RN Member Role: Primary Care Nurse Name: Mookie Jacobson MD Position: [facility] Renal MD Member Role: Lifetime Consulting Physician Address: Address: [address] [place] [address], [place] [address]- Name: Nahed Crain RN Position: [facility] SN RN Member Role: Primary Care Nurse Name: Lex Tillman RN Position: [facility] RN Member Role: Primary Care Nurse Name: Thalia Murcia RN Position: [facility] RN Member Role: Primary Care Nurse Name: Shabana Newton MD Position: [facility] Physician - Primary Care Member Role: PCP Address: Address: [address] [place] [address] [place] [address]- Name: Giorgi Schuster RN Position: S RN Member Role: Primary Care Nurse Name: Jayashree Campo RN Position: [facility] RN Supv Member Role: Primary Care Nurse Name: Christi Feliciano Position: S RN Member Role: Primary Care Nurse Name: Tamra Perez RN Position: S RN Member Role: Primary Care Nurse Name: [place] RN Position: S RN Member Role: Primary Care Nurse Name: Haley Tilley RN Position: S RN Member Role: Primary Care Nurse Name: Bobby Quintanilla RN Position: S RN Member Role: Primary Care Nurse Name: Kg Blake MD Position: S Renal MD Member Role: Lifetime Consulting Physician Address: Address: [address] [place] [address] [address] [facility] [place] [address]- Name: Fiorella Velazquez RN Position: S RN Supv Member Role: Primary Care Nurse Name: Tena Holden RN Position: S RN Member Role: Primary Care Nurse Name: Shon Fleming MD Position: [facility] Renal MD Member Role: Lifetime Consulting Physician Address: Address: [address] [place] [address] [facility] [place] [address]- Name: Katiuska Benito LPN Position: S RN Member Role: Primary Care Nurse Care Team Related Persons Name: MARK MIMS Address: home [address] [place] [address]
--- OUTSIDE RECORDS SUMMARY | 2023-05-28 20:41 | XMS_ITS | Continuity of Care Document ---
Author Name Unknown Organization [facility] Infectious Disease Address [address] [place] [address]- Care Team Providers Care Device Test Engineer Name Role Phone Shabana Newton MD Primary Care Physician [place] [facility] [place] 02[place]23 [facility] [address] [place] [id number] Allergies, Adverse Reactions, Alerts Substance Reaction Severity [...] retention. follow up with pcp and call [facility] urology to schedule outpatient appt for furthermgmt and refills., # 30 tablet, Refills 0, Tot. R... Start Date: 01/31/23 Status: Ordered folic acid 1 mg oral tablet 1 mg, By Mouth, Daily, 1 tablet daily for nutrition. refills-contact pcp or purchase over the counter., # 30 tablet, Refills 0, Tot. Refills 0, Maintenance, 01/31/23 9:57:00 EDT, Route to Pharmacy Electronically, [facility], NO FURTHER R... Start [...] 0 Refills, Maintenance, 01/31/23 9:53:00 EDT, Patch, [facility] Start Date: 01/31/23 Status: Ordered [...] Refills, Maintenance, 10/20/22 12:58:00 EDT, ECCapsule, [facility], 178, cm, 10/20/22 6:36:00 EDT, Height Start Date: 10/20/22 Status: Ordered oxyCODONE 10 mg oral tablet 1 tablet = 10 mg, By Mouth, Every 6 hours, hold for sedation/sleepiness, altered mental status, confusion, # 28 tablet, 0 Refills, Maintenance, 02/01/23 12:53:00 EDT, Tablet, [facility] # 302, Partial fill upon patient [...] 01/31/23 9:55:00 EDT, Route to Pharmacy Electronically, [facility],... Start Date: 01/31/23 Status: [...] 01/31/23 9:57:00 EDT, Route to Pharmacy Electronically, [facility], NO FURTHER... Start Date: [...] Team Personnel Name: Fadumo Aguilera RN Position: [facility] RN Member Role: Primary Care Nurse Name: Mookie Jacobson MD Position: [facility] Renal MD Member Role: Lifetime Consulting Physician Address: Address: [address] [place] [address], [address] Name: Nahed Crain RN Position: [facility] RN Member Role: Primary Care Nurse Name: Lex Tillman RN Position: S RN Member Role: Primary Care Nurse Name: Thalia Murcia RN Position: S RN Member Role: Primary Care Nurse Name: Shabana Newton MD Position: [facility] Physician - Primary Care Member Role: PCP Address: Address: [address] [place] [address] [place] [address]- [place] Name: Giorgi Schuster RN Position: S RN Member Role: Primary Care Nurse Name: Jayashree Campo RN Position: [facility] RN Supv Member Role: Primary Care Nurse Name: Christi Feliciano Position: S RN Member Role: Primary Care Nurse Name: Tamra Perez RN Position: [facility] RN Member Role: Primary Care Nurse Name: Haley Tilley RN Position: [facility] RN Member Role: Primary Care Nurse Name: Ruchi Irwin RN Position: [facility] RN Member Role: Primary Care Nurse Name: Bobby Quintanilla RN Position: [facility] RN Member Role: Primary Care Nurse Name: Kg Blake MD Position: [facility] Renal MD Member Role: Lifetime Consulting Physician Address: Address: [address] [place] [address] [address] [facility] [place] [address]- Name: Fiorella Velazquez RN Position: [facility] RN Supv Member Role: Primary Care Nurse Name: Tena Holden RN Position: [facility] RN Member Role: Primary Care Nurse Name: Shon Fleming MD Position: [facility] Renal MD Member Role: Lifetime Consulting Physician Address: Address: [address] [place] [address] [facility] [place] [address]- Name: Katiuska Benito LPN Position: [facility] RN Member Role: Primary Care Nurse Care Team Related Persons Name: MARK MIMS Address: home [address] [place] [address]
--- OUTSIDE RECORDS SUMMARY | 2023-05-28 20:41 | XMS_ITS | Continuity of Care Document ---
Author Name Unknown Organization [facility] Infect[facility] Disease Address [address] [place] [address]- Care Team Providers Care Periodontist Name Role Phone Shabana Newton MD Primary Care Physician [place] [facility] [place]/09[place]22 - 12/09/22 [facility] [address] [place] [id number] Allergies, Adverse [...] 05/15/22 9:40:00 EST, Route to Pharmacy Electronically, [facility], 177.8, cm, 05/15/22 9:07:00 [...] 3 Refills, Maintenance, 05/15/22 9:40:00 EST, Tablet, [facility] # [facility], Partial fill upon patient request, 177.8, cm, 05/15/22 9:07:00 EST, Height Start Date: 05/15/22 Stop Date: 09/12/22 Status: Ordered bisoprolol-hydrochlorothiazide 10 mg-6.25 mg oral tablet 1 tablet, By Mouth, Daily, # 90 tablet, 3 Refills, Maintenance, 05/15/22 9:40:00 EST, Tablet, [facility] # [facility], 1 tablet By Mouth Daily, 177.8, cm, 05/15/22 9:07:00 EST, Height Start Date: 05/15/22 Status: Ordered ibuprofen 800 mg oral tablet 1, tablet, By Mouth, 3 times a day, PRN, # 42 tablet, Refills 0, Maintenance, NEEDED FOR MODERATE PAIN FOR, 11/22/22 14:25:00 EDT, Route to Pharmacy Electronically, [id number], 175, cm, 11/17/22 9:46:00 EDT, Height, 79.5, kg, 11/09/22 1... Start Date: 11/22/22 Stop Date: 12/06/22 Status: Ordered multivitamin with minerals Multiple Vitamins with Minerals oral tablet 1 tablet, By Mouth, Daily, # 30 tablet, 0 Refills, Maintenance, Tablet Start Date: 02/27/12 Status: Ordered omeprazole 20 mg oral enteric coated capsule 1 capsule = 20 mg, By Mouth, Daily, # 90 capsule, 3 Refills, Maintenance, 10/20/22 12:58:00 EDT, ECCapsule, [facility], 178, cm, 10/20/22 [...] Team Personnel Name: Nahed Crain RN Position: [facility] RN Member Role: Primary Care Nurse Name: Lex Tillman RN Position: S RN Member Role: Primary Care Nurse Name: Shabana Newton MD Position: S Physician - Primary Care Member Role: PCP Address: Address: [address] [place] [address] [place] [address]- Name: Tamra Perez RN Position: S RN Member Role: Primary Care Nurse Name: Wu Lake RN Position: S RN Member Role: Primary Care Nurse Name: Bobby Quintanilla RN Position: S RN Member Role: Primary Care Nurse Care Team Related Persons Name: MARK MIMS Address: [address] [address]
--- OUTSIDE RECORDS SUMMARY | 2023-05-28 20:42 | XMS_ITS | Continuity of Care Document ---
Author Name Unknown Organization [facility] Pulmonary M edicine Address [address] [address]- Care Team Providers Care Associate Relations Specialist Name Role Phone Shabana Newton MD Primary Care Physician [phone] Encounter [facility] Date(s): 03/14/23 - 04/13/23 [facility] Medicine [address] [place] [id number] Allergies, Adverse Reactions, Alerts Substance Reaction [...] 03/07/23 20:14:00 EDT, Route to Pharmacy Electronically, [facility], Partial fill upon patient [...] retention. follow up with pcp and call [facility] urology to schedule outpatient appt for furthermgmt and refills., # 30 each, Refills 11, Tot. Re... Start Date: 02/28/23 Stop Date: 02/23/24 Status: Ordered gabapentin 300 mg oral capsule See Instructions, 1 capsule By Mouth morning and noon and 2 capsules at bedtime, # 120 each, Refills 5, Tot. Refills 5, Maintenance, 02/09/23 8:50:00 EDT, Instructions Replace Required Details, [facility], [facility],... Start Date: 02/09/23 Status: [...] 3 Refills, Maintenance, 10/20/22 12:58:00 EDT, ECCapsule, [facility], 178, cm, 10/20/22 [...] Care Nurse Name: Mookie Jacobson MD Position: [facility] Renal MD Member Role: Lifetime Consulting Physician Address: Address: [address] [place] [address] [address] [place] [address]- [place] Name: Nahed Crain RN Position: [facility] SN RN Member Role: Primary Care Nurse Name: Thalia Murcia RN Position: S RN Member Role: Primary Care Nurse Name: Shabana Newton MD Position: [facility] Physician - Primary Care Member Role: PCP Address: Address: [address] [facility] [place] [address]- [place] Name: Giorgi Schuster RN Position: [facility] RN Member Role: Primary Care Nurse Name: Jayashree Campo RN Position: [facility] RN Cameron Member Role: Primary Care Nurse Name: Daniel Dumont DO Position: [facility] Renal MD Member Role: Lifetime Consulting Physician Address: Address: [address] [facility] [address] [facility] [place] [address]- [place] Name: Tamra Perez RN Position: [facility] RN Member Role: Primary Care Nurse Name: Haley Tilley RN Position: [facility] RN Member Role: Primary Care Nurse Name: Ruchi Irwin RN Position: [facility] RN Member Role: Primary Care Nurse Name: Bobby Quintanilla RN Position: [facility] RN Member Role: Primary Care Nurse Name: Kg Blake MD Position: [facility] Renal MD Member Role: Lifetime Consulting Physician Address: Address: [address] [place] [address] [address] [facility] [place] [address]- [place] Name: Tena Holden RN Position: [facility] RN Member Role: Primary Care Nurse Name: Shon Fleming MD Position: [facility] Renal MD Member Role: Lifetime Consulting Physician Address: Address: [address] [place] [address] [facility] [place] [address]- [place] Name: Katiuska Benito LPN Position: S RN Member Role: Primary Care Nurse Care Team Related Persons Name: STAR MIMS Address: home [address] [place] [address]
--- OUTSIDE RECORDS SUMMARY | 2023-05-28 20:42 | XMS_ITS | Continuity of Care Document ---
Author Name Unknown Organization [facility] Infectious Disease Address [address] [place] [address]- Care Team Providers Care Cane Flume Chute Operator Name Role Phone Shabana Newton MD Primary Care Physician Encounter [facility] [place] Date(s): 03/15/23 - 04/14/23 [facility] Infectious Disease [address] [place] [id number]- Allergies, Adverse Reactions, Alerts Substance Reaction Severity [...] 03/07/23 20:14:00 EDT, Route to Pharmacy Electronically, [facility], Partial fill upon patient [...] retention. follow up with pcp and call [facility] urology to schedule outpatient appt for furthermgmt and refills., # 30 each, Refills 11, Tot. Re... Start Date: 02/28/23 Stop Date: 02/23/24 Status: Ordered gabapentin 300 mg oral capsule See Instructions, 1 capsule By Mouth morning and noon and 2 capsules at bedtime, # 120 each, Refills 5, Tot. Refills 5, Maintenance, 02/09/23 8:50:00 EDT, Instructions Replace Required Details, [facility], [facility],... Start Date: 02/09/23 Status: [...] 10/20/22 12:58:00 EDT, ECCapsule, [facility], 178, cm, 10/20/22 6:36:00 [...] Care Nurse Name: Mookie Jacobson MD Position: [facility] Renal MD Member Role: Lifetime Consulting Physician Address: Address: [address] [facility] [address]- [place] Name: Nahed Crain RN Position: [facility] SN RN Member Role: Primary Care Nurse Name: Thalia Murcia RN Position: S RN Member Role: Primary Care Nurse Name: Shabana Newton MD Position: [facility] Physician - Primary Care Member Role: PCP Address: Address: [address] [place] [address] [place] [address]- [place] Name: Giorgi Schuster RN Position: [facility] RN Member Role: Primary Care Nurse Name: Jayashree Campo RN Position: [facility] RN Cameron Member Role: Primary Care Nurse Name: Daniel Dumont DO Position: [facility] Renal MD Member Role: Lifetime Consulting Physician Address: Address: [address] [facility] [facility] [address] [facility] [place] [address]- [place] Name: Tamra Perez RN Position: [facility] RN Member Role: Primary Care Nurse Name: Haley Tilley RN Position: [facility] RN Member Role: Primary Care Nurse Name: Ruchi Irwin RN Position: [facility] RN Member Role: Primary Care Nurse Name: Bobby Quintanilla RN Position: [facility] RN Member Role: Primary Care Nurse Name: Kg Blake MD Position: [facility] Renal MD Member Role: Lifetime Consulting Physician Address: Address: [address] [facility] [address] [facility] [place] [address]- [place] Name: Tena Holden RN Position: [facility] RN Member Role: Primary Care Nurse Name: Shon Fleming MD Position: [facility] Renal MD Member Role: Lifetime Consulting Physician Address: Address: [address] [facility] [place] [address]- [place] Name: Katiuska Benito LPN Position: S RN Member Role: Primary Care Nurse Care Team Related Persons Name: STAR MIMS Address: home [address] [place] [address]
--- OUTSIDE RECORDS SUMMARY | 2023-05-28 20:42 | XMS_ITS | Continuity of Care Document ---
Author Name Unknown Organization [facility] ter Address [address] [place] [id number]- Care Team Providers Care Dot Etcher Name Role Phone Shabana Newton MD Primary Care Physician En[place] [facility] Date(s[place] 01/22/23 - 01/31/[address] [address]- Encounter Diagnosis Back pain(Final) - 01/22/23 Discharge Disposition: A-Transfer VNA/Home Health Attending Physician: Brianna Mckeon MD Admitting Physician: Kaiser Aleman MD Referring Physician: Not on Staff, Referring [...] opioid drug. Start Date: 01/31/23 Status: Ordered Acetaminophen Tablet 650 mg, Tablet, By Mouth, 01/31/23 9:00:00 EDT Start Date: 01/31/23 Stop Date: 01/31/23 Status: Completed amLODIPine 10 mg oral tablet 10 mg, Tablet, By Mouth, 01/31/23 9:00:00 EDT Start Date: 01/31/23 Stop Date: 01/31/23 Status: Completed amLODIPine 10 mg oral tablet 10 mg, By Mouth, Daily, Refills 0, Maintenance, 01/31/23 9:10:00 EDT, Partial fill upon patient request if the prescription is for a schedule II opioid drug. Start Date: 01/31/23 Status: Ordered amLODIPine 10 mg oral tablet 10 mg, Tablet, By Mouth, 01/30/23 9:00:00 EDT Start Date: 01/30/23 Stop Date: 01/30/23 Status: Completed aspirin 81 mg oral delayed release tablet [...] retention. follow up with pcp and call [facility] urology to schedule outpatient appt for furthermgmt and refills., # 30 tablet, Refills 0, Tot. R... Start Date: 01/31/23 Status: Ordered folic acid 1 mg oral tablet 1 mg, By Mouth, Daily, 1 tablet daily for nutrition. refills-contact pcp or purchase over the counter., # 30 tablet, Refills 0, Tot. Refills 0, Maintenance, 01/31/23 9:57:00 EDT, Route to Pharmacy Electronically, [facility], NO FURTHER R... Start Date: [...] of 100mg for total bedtime dose of 500mg. Contact PCP for refills., # 42 capsule, Refills 0, Tot. Refills 0, M... Start Date: 01/31/23 Stop Date: 02/14/23 Status: Ordered gabapentin 300 mg oral capsule 300 mg, Capsule, By Mouth, Hold for: sedation, 01/31/23 9:00:00 EDT Start Date: 01/31/23 Stop Date: 01/31/23 Status: Completed lidocaine 5% topical film See Instructions, Apply to right rib area where pain is, daily for 12 hours. remove patches after 12 hours. please purchase 4% or 5% topical films over the counter., # 30 patch, 0 Refills, Maintenance, 01/31/23 9:53:00 EDT, Patch, [facility] Start Date: 01/31/23 Status: Ordered melatonin [...] Maintenance, 10/20/22 12:58:00 EDT, ECCapsule, [facility], 178, cm, 10/20/22 6:36:00 EDT, Height Start Date: 10/20/22 Status: Ordered oxyCODONE 10 mg oral tablet 1 tablet = 10 mg, By Mouth, Every 6 hours, hold for sedation/sleepiness, altered mental status, confusion, # 12 tablet, 0 Refills, Maintenance, 01/31/23 9:49:00 EDT, Tablet, [facility],Partial fill upon patient request if the prescripti... Start Date: 01/31/23 Stop Date: 02/03/23 Status: Ordered oxyCODONE 5 mg oral tablet 5 mg, By Mouth, Every 12 hours, PRN, hold for sedation/sleepiness, altered mental status, confusion. Please ensure at least 2 hrs from last dose or next dose before administered., # 6 tablet, Refills0, Tot. Refills 0, Maintenance, Pain , Severe, 01/10... Start Date: 01/31/23 Stop Date: 02/03/23 Status: Ordered oxyCODONE 5 mg oral tablet 10 mg, Tablet, By Mouth, 01/31/23 11:00:00 EDT Start Date: 01/31/23 Stop Date: 01/31/23 Status: Completed pyridoxine 50 mg oral tablet 50 mg, By Mouth, Daily, 1 tablet daily for nutrition. Contact pcp or purchase over the counter for further refills., # 30 tablet, Refills 0, Tot. Refills 0, Maintenance, 01/31/23 9:55:00 EDT, Route to Pharmacy Electronically, [facility],... Start Date: 01/31/23 Status: Ordered [...] 01/31/23 9:57:00 EDT, Route to Pharmacy Electronically, [facility], NO FURTHER... Start Date: 01/31/23 [...] for Microbiology Reports Name Date Blood Culture 01/23/23 Blood Culture #2 01/23/23 Microbiology Reports TEST:Blood Culture STATUS:Auth (Verified) BODY SITE: SOURCE:Blood COLLECTED DATE/TIME:01/23/23 4:20 PM Blood Culture SPECIMEN DESCRIPTION : BLOOD RAC SPECIAL REQUESTS : NONE CULTURE : NO GROWTH 5 DAYS. REPORT STATUS : FINAL 01/28/2023 TEST:Blood Culture, Second Order STATUS:Auth (Verified) BODY SITE: SOURCE:Blood COLLECTED DATE/TIME:01/23/23 4:20 PM Blood Culture, Second Order SPECIMEN DESCRIPTION : BLOOD LAC SPECIAL REQUESTS : NONE CULTURE : NO GROWTH 5 DAYS. REPORT STATUS : FINAL 01/28/2023 Radiology Reports * Exam Date Time Procedure Performing Provider Status 01/28/23 11:59 AM Abdomen AP Bein Katlin; Auth (Verif ied) Notes: (Abdomen AP) Reason For Exam: new RLQ pain, r/o appendicitis vs. perforation vs. high stool burden;Pain RESULT: XR Abdomen AP XR Abdomen AP 1 view INDICATION/CLINICAL QUESTION: Reason: Pain; new RLQ pain, r o appendicitis vs. perforation vs. highstool burden; Clinical Question(s): Appendicitis COMPARISON: 01/07/2023 FINDINGS: Nonobstructing bowel gas pattern. No evidence of pneumoperitoneum. No acute bone findings. IMPRESSION: Nonobstructing bowel gas pattern. WSN: [id number] Ordering Physician: Yen Oliva Dictated By: Norma Abdi MD Dictated Date/Time: 01/28/23 12:40 p Reviewed By: Norma Abdi MD Signed By: Norma Abdi MD Signed Date/Time: 01/28/23 12:40 pm Transcribed By: JAIME Transcribed Date/Time: 01/28/23 12:39 pm * Exam Date Time Procedure Performing Provider Status 01/22/23 1:45 AM MRI Thoracic Spine W+W/O Contrast Tena Miller; [place] (Verified) Notes: (MRI Thoracic Spine W+W/O Contrast) Reason For Exam: c/f osteo, c/f SEA;Other: RESULT: MRI Thoracic Spine W+W/O Contrast MRI Thoracic Spine W+W/O Contrast INDICATION: Hx of Present Illness: Transfer for back pain urinary retention; Reason: Other:; c f osteo, c f SEA; Clinical Question(s): Other:; Order Comment: Please see Reference Text for complete list of contraindications Other: TECHNIQUE: MRI of the thoracic spine was performed with and without intravenous contrast utilizing sagittal T1, sagittal T2, sagittal STIR, axial T1, and fat- saturated axial T2-weighted sequences, and post-contrast sagittal T1 and fat- saturated axial T1-weighted sequences. 17 mL of Clariscan was administered intravenously. COMPARISON: CT thoracic spine 01/21/2023, thoracic spine 01/03/2023. FINDINGS: Image quality is degraded by patient motion. Within this technical confine: LOCALIZER: No additional findings on limited localizer images. Khan catheter noted with decompressed bladder and bladder wall thickening. ALIGNMENT, VERTEBRAE, MARROW, AND DISCS: Persistent edema and enhancement throughout the T9 and [id number] bodies with fluid in the disc space compatible with discitis/osteomyelitis complex, with similar appearance on the previous MRI. There is increased height loss of the T10 vertebral body compared to the previous exam. There is height loss at T9 which is similar to the previous exam, with endplate destruction at these levels. Exaggerated thoracic kyphosis. Alignment is otherwise maintained. CORD: There is compression of the spinal cord at the T9 and T10 levels, with increased T2 signal inthe spinal cord. These findings similar to the previous exam. There is persistent circumferential epidural phlegmon at this level with diffuse increased T2 signal and enhancement in the epidural space, and no convincing abscess pocket. The ventral component appears slightly decreased from the previous exam. PARASPINAL TISSUES: Persistent paraspinal soft tissue thickening, edema, and enhancement, as well as a fluid pocket in the left paravertebral soft tissues at T10 now measuring approximately 1.4 x 0.9cm compared to 1.5 x 1.1 cm previously, slightly smaller. A second fluid pocket which extends alongthe costovertebral junction on the left as also slightly decreased to approximately 0.7 x 0.4 cm compared to 0.7 x 0.6 cm previously. Small pleural effusions, decreased from prior. IMPRESSION: Persistent findings of discitis/osteomyelitis at T9-T10 with further erosive change and collapse ofthe superior aspect of the T10 vertebral body compared to 01/03/2023, as also seen on the CT. Persistent epidural phlegmon at T9-T10, slightly decreased, though there is still spinal cord compression and abnormal T2 signal in the spinal cord at this level. Paraspinal phlegmon with small paravertebral abscesses on the left side which are slightly decreased in size from the previous exam. Small pleural effusions, decreased from 01/03/2023. A similar preliminary report was provided by Trae. WSN: [id number] Ordering Physician: Jose Manuel Ragland Dictated By: Sylvia Taylor MD Dictated Date/Time: 01/22/23 10:03 a Reviewed By: Sylvia Taylor MD Signed By: Sylvia Taylor MD Signed Date/Time: 01/22/23 10:03 am Transcribed By: JAIME Transcribed Date/Time: 01/22/23 9:52 am Vital Signs Most recent to oldest [Reference Range]: 1 2 3 Height 176 cm (01/31/23 8:53 AM) 176 cm (01/29/23 8:52 PM) 176 cm (01/29/23 7:45 AM) Weight 72.4 kg (01/22/23 3:44 PM) Oxygen Saturation [94-100 %] 98 % (01/31/23 9:00 AM) 87 % *L* (01/31/23 8:53 AM) 99 % (01/30/23 8:00 AM) Pulse Rate [55-90 bpm] 81 bpm (01/31/23 8:53 AM) 82 bpm (01/30/23 8:00 AM) 85 bpm (01/29/23 8:52 PM) Body Mass Index [18.5-24.99 kg/m2] 23.37 kg/m2 (01/22/23 3:44 PM) Blood Pressure [90-138/55-84 mm Hg] 120/75mm Hg (01/31/23 9:49 AM) 120/75mm Hg (01/31/23 8:53 AM) 132/78mm Hg (01/30/23 9:10 AM) Respiratory Rate [16-30 br/min] 16 br/min (01/31/23 11:00 AM) 16 br/min (01/31/23 10:34 AM) 16 br/min (01/31/23 10:34 AM) Temperature [96.8-100.4 DegF] 97.6 DegF (01/31/23 8:53 AM) 98.7 DegF (01/30/23 8:00 AM) 99.1 DegF (01/29/23 8:52 PM) Mode of Delivery (Oxygen) Room air (01/31/23 9:00 AM) Room air (01/31/23 8:53 AM) Room air (01/30/23 8:00 AM) Blood pressure sites Arm, right (01/31/23 8:53 AM) Arm, left (01/30/23 8:00 AM) Arm, left (01/29/23 8:52 PM) Temperature Route Oral (01/31/23 8:53 AM) Oral (01/30/23 8:00 AM) Oral (01/29/23 8:52 PM) Dry Weight 72.4 kg (01/22/23 3:44 PM) Social History Social History Type Response Smoking Status Former smoker; Type: Cigarettes; Started at age: 9; Stopped at age: 29; entered on: 08/25/14 Sex Admission evaluation note * Hunter August MD: MODIFY Hunter August MD: MODIFY, MODIFY Sara Prakash MD: MODIFY, MODIFY Sara Prakash MD: MODIFY, MODIFY Sara Prakash MD: MODIFY, MODIFY Sara Prakash MD: MODIFY, MODIFY Sara Prakash MD: MODIFY, MODIFY Sara Prakash MD: MODIFY, MODIFY Sara Prakash MD: MODIFY, MODIFY Sara Prakash MD: MODIFY, MODIFY Sara Prakash MD: MODIFY, PERFORM Sara Prakash MD: PERFORM Event Display: Admission Note Authored Date: [id number] Patient: ??MIMS, LUIS ANGEL ? Age:??72 Years?Sex:??Male?:??1950?? Chief Complaint/Reason for Consultation back pain/urinary retention History of Present Illness Mr. Mims is a 72-year-old male with past medical history of hypertension, hyperlipidemia, CAD,??thoracic aneurysm, psoriasis recently on adalimumab, T9- T10 discitis on daptomycin (admission 10/12-10/20 for??MRSA bacteremia) who presented to [facility] for concern of fever and increasing back/abdominal pain. ?? Of note he was recently admitted from??01/17-01/18??for his discitis and intractable back pain for which he was continued on IV daptomycin 600 mg via his Watkins to be completed on 02/15. ??He noted worsening back pain, fever and some difficulty with urination and presented back to the hospital. He states he was trying ibuprofen 800 mg, tylenol and oxycodone 10 mg. He states the oxycodone slightly helped. His last dose of daptomycin was yesterday. His watkins is on the R chest wall. ?? In the emergency room he was febrile to 102, pulse of 134, blood pressure 149/95 saturating wellon room air. ??His lab work shows no leukocytosis, however, 82.9% neutrophil count, hemoglobin of 11.7. ??His sed rate noted to be 48 on admission. ??His sodium is noted to be 129 with chloride of 91but normal renal function. ??His CRP is noted to be elevated at 9.4. ??His UA was within normal limits. He underwent CT spine which showed small abscess or phlegmon measuring 1 cm and discitis osteomyelitis at T9-T10 along with mild circumferential urinary bladder wall thickening with moderate prostatomegaly. ??Neurosurgery was consulted and recommended transfer to [facility] for emergent MRI of his T-spine. ??His MRI thoracic spine shows persistent epidural phlegmon at T9- T10 which is slightly decreased but still spinal cord compression and abnormal T2 signal in the spinal cord. ??In the emergency room he has been receiving Dilaudid for pain control and had received ceftriaxone and metronidazole. ?? On my evaluation Mr. Mims states he is feeling well at this time and that he just received his pain medication. He is frustrated that he has been having constant problems in regards to his back. He denies pain at this time but does endorse previously having difficulty with urination. He currently has a khan place. Review of Systems Gen:??Negative fevers/chills Cardiac:??Negative palpitations, Negative chest pain, Negative Edema Respiratory: Denies dyspnea, cough?? GI:??Negative abdominal pain, Negative diarrhea/constipation : Negative dysuria MSK:??Thoracic back pain Neurological:??Negative tingling, numbness? All other review of systems is negative except for those mentioned in HPI Objective Vital Signs?? Temperature: 99.1 DegF (01/22/23 09:06:00) Temperature Route: Oral (01/22/23 09:06:00) Pulse Rate:??97 bpm??High (01/22/23 09:06:00) Respiratory Rate: 18 br/min (01/22/23 09:06:00) Systolic Blood Pressure: 137 mm Hg (01/22/23 09:06:00) Diastolic Blood Pressure: 78 mm Hg (01/22/23 09:06:00) Blood pressure sites: Arm, right (01/22/23 09:06:00) Mean Arterial Pressure: 98 mm Hg (01/22/23 09:06:00) Pulse Pressure: 59 mm Hg (01/22/23 09:06:00) Oxygen Saturation: 94 % (01/22/23 09:06:00) Mode of Delivery (Oxygen): Room air (01/22/23 09:06:00) Early Warning Score: 2 (01/22/23 09:06:42) ? Intake/Output? 01/22 06:18 01/22 07:00 01/21 07:00 01/20 07:00 01/19 07:00 ?? 01/22 10:31 01/22 10:31 01/22 06:59 01/21 06:59 01/20 06:59 Intake ?100 ? 43.3 ? 56.7 ?0 ?0 Output ?0 ?0 ?0 ?0 ?0 Net Total ?100 ? 43.3 ? 56.7 ?0 ?0 ?? Physical Exam General??: No apparent distress, laying comfortably HEENT: Normocephalic, EOMI,??moist oral mucosa?? Cardiovascular??: RRR, S1??and S2 heard,??No M/G/R.??Watkins clean, dry noted on R chest wall Respiratory??Clear to auscultation bilaterally??no wheezes, no rales or rhonchi. Abdomen/GI??Non-distended. Normal bowel sounds. Soft, non-tender.?? Extremities??No clubbing. No cyanosis. No edema.??Tenderness to palpation in thoracic and lumbar spine and paraspinal muscles. Vascular??Peripheral pulsations intact, warm extremities Neurologic??no focal neurological deficits. moving all extremities spontaneously. Normal sensation in all extremities and 5/5 strength in all extremities Psychiatric??Mood and Affect WNL.?? Assessment/Plan Assessment:??Mr. Mims is a 72-year-old male with past medical history of hypertension, hyperlipidemia, CAD,??thoracic aneurysm, psoriasis recently on adalimumab, T9-T10 discitis on daptomycin (admission 10/12-10/20 for??MRSA bacteremia)?? who presented to [facility] for concern of fever and inc reasing back/abdominal pain. Imaging revealed concern for a epidural phlegmon vs abscess at T9/T10 and was transferred to [facility] for urgent [place]. Neurosurgery??does not currently recommend surgical intervention at this time as he has no focal deficits. Infectious disease has been consulted as patient is still spiking fevers on??daptomycin. ?? Epidural phelgmon vs spinal epidural abscess at T9-T10 Hx of T9-T10 Discitis on daptomycin Presentation: Significant back pain with fever and urinary retention (PVR was 495 and then 645 cc) Imaging: CT spine which showed small abscess or phlegmon measuring 1 cm and discitis osteomyelitis at T9-T10 along with mild circumferential urinary bladder wall thickening with moderate prostatomegaly. MRI thoracic spine shows persistent epidural phlegmon at T9-T10 which is slightly decreased but still spinal cord compression and abnormal T2 signal in the spinal cord S/p CTX and metronidazole, ESR and CRP significantly elevated ?? Plan: ??? Will continue home daptomycin ??? Neurosurgery consulted, appreciate recs ? -At this point since patient is not having any focal neurologic deficits and size has decreased, no surgical intervention at this time. ??? Will give patient a diet ??? Dilaudid for pain relief??at this time and scheduled oxycodone 10 mg (will hold home celecoxib and cyclobenzaprine at this time) ??? We will obtain an infectious disease consult as patient has been on daptomycin but still spiking fevers up to 102 ??? Follow-up on blood cultures (drawn at [facility]) ?? Alcohol use disorder Patient states he drinks 5-6 beers daily for the last 50 years Never had withdrawal seizures ?? Plan: -Will place on CIWA on protocol, if scoring high can start Ativan -Will start multivitamins ?? Chronic stable medical conditions: Hypertension???continue amlodipine 10 mg daily CAD/hyperlipidemia???continue aspirin??81 mg, atorvastatin 40 mg GERD???on home omeprazole 20 mg, not on formulary and will use pantoprazole inpatient ?? Quality Measures: Diet - Cardiac diet? DVT prophylaxis - Lovenox Code Status -??Full ?? Sara Prakash MD Internal Medicine PGY-3 Pager: [phone] ?? Patient seen and discussed with Dr. August ? Attending Attestation (Hunter August MD):??I have seen and evaluated this patient. ??I have discussed the case and its management with the resident and agree with the findings and plan as documented in the resident???s note. ?? Histories Allergies Allergies ?(Active and Proposed Allergies Only) lisinopril? (Severity: Unknown severity, Onset: Unknown) ?Reactions: Nausea penicillin? (Severity: Unknown severity, Onset: Unknown) ?Comments: Rash ? Past Medical History/Problem List Active Problems??(19) Borderline anemia Constipation Coronary artery calcification seen on CT scan Coronary artery disease Diskitis Dyshidrotic eczema hands Dyspnea on exertion Erectile dysfunction Esophagitis Family history of prostate cancer brother Hypercholesterolemia Hypertension Intractable back pain Moderate drinker of alcohol Nasal congestion Osteoarthritis of right knee Osteomyelitis Thoracic aortic aneurysm Tubular adenoma ? Past Surgical History EGD - Esophagogastroduodenoscopy: 06/29/19 History of right total knee replacement: 08/16/17 Colonoscopy, flexible, proximal to splenic flexure; diagnostic, with or without collection of specimen(s) by brushing or washing, with or without colon decompression (separate procedure): 08/10/17 EGD and colonoscopy: 05/13/12 History of tonsillectomy: 1954 EGD 15 yrs ago ? Social History Alcohol Details:??Use: Current. ??Frequency: Daily. ??Type: Beer. 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 Exercise Details:??Regular exercise: Yes. ??Exercise frequency: 3-4 times/week. ??Exercise type: Walking. Home/Environment Details:??Living situation: Home/Independent. ??Lives with: Spouse. Nutrition/Health Details:??Diet: Regular. ??Caffeine intake amount: one coffee daily. Substance Abuse Details:??Use: Never. Tobacco Details:??Former smoker, Type: Cigarettes.?Smoked 1 ppd for 20 years, quit 42 years ago Electronic Cigarette/Vaping Details:??Electronic Cigarette Use: Never. ? Family History Father: Depression; Suicide Brother (Ryland): Cancer of prostate Other (paternal uncle): Cancer of prostate ? Medications Home Medications Amlodipine (amLODIPine 10 mg oral tablet)?10?Milligram?1?tablet?By Mouth?Daily Aspirin (aspirin 81 mg oral delayed release tablet)?81?Milligram?1?tablet?By Mouth?Daily?for 30?Days Atorvastatin (atorvastatin 40 mg oral tablet)?1?tab(s)?40?Milligram?By Mouth?Daily?for 30?Days?replaces Simvastatin Celecoxib (celecoxib 200 mg oral capsule)?1?capsule?200?Milligram?By Mouth?2 times a day?for 30?Days Clobetasol Topical (Impoyz 0.025% topical cream)?1?claudio?Topically?2 times a day Cyanocobalamin (Vitamin B12 1000 mcg oral tablet)?1?tab(s)?1,000?Microgram?By Mouth?Daily Cyclobenzaprine (cyclobenzaprine 10 mg oral tablet)?10?Milligram?1?tablet?By Mouth?3 times a day?as needed?for 10?Days?for spasm Daptomycin (DAPTOmycin 500 mg intravenous injection)?600?Milligram?IV Infusion?Every 24hours?for 22?Days?completion date 02/09 Miscellaneous Rx (Epiderm)?Topically Multivitamin (Super B Complex)?1?tab(s)?By Mouth?Daily Multivitamin With Minerals (multivitamin with minerals Multiple Vitamins with Minerals oral tablet)?1?tab(s)?By Mouth?Daily Omeprazole (omeprazole 20 mg oral enteric coated capsule)?1?capsule?20?Milligram?By Mouth?Daily Oxycodone (oxyCODONE 5 mg oral tablet)?10?Milligram?By Mouth?Every 6 hours?as needed?Pain , Moderate Oxycodone (oxyCODONE 5 mg oral tablet)?10?Milligram?2?tablet?By Mouth?Every 6 hours?as needed?for 5?Days?as needed for pain Polyethylene Glycol 3350 (MiraLax oral powder for reconstitution)?17?gram?By Mouth?Daily?dissolve in water before taking Senna (Senna 8.6 mg oral tablet)?8.6?Milligram?1?tab(s)?By Mouth?Daily ? Inpatient Medications Medications (14) Active SCHEDULED: (7) Amlodipine 10 mg Tablet (amLODIPine 10 mg oral tablet) ??10 mg, By Mouth, Daily Aspirin 81 mg EC Tablet (aspirin 81 mg oral delayed release tablet) ??81 mg, By Mouth, Daily Atorvastatin 40 mg Tablet (atorvastatin 40 mg oral tablet) ??40 mg, By Mouth, Daily Enoxaparin 40 mg Inj (Enoxaparin Inj) ??40 mg 0.4 mL, Subcutaneous Injection, Daily NaCl 0.9% Flush 3ml (NaCL 0.9% Flush) ??3 mL, IV Push, Every 8 hours Pantoprazole 20 mg EC Tablet (pantoprazole 20 mg oral delayed release tablet) ??20 mg, By Mouth, Daily Senna Tablet (Senna 8.6 mg oral tablet) ??8.6 mg 1 tablet, By Mouth, Daily CONTINUOUS: (0) PRN: (7) Acetaminophen 325 mg Tablet (Acetaminophen Tablet) ??650 mg, By Mouth, Every 4 hours Dextromethorphan-Guaifenesin 20 mg-200 mg/10 mL Liqu UD (Robitussin DM Liquid) ??10 mL, By Mouth, Every 4 hours Melatonin 3 mg Tablet (Melatonin Tablet) ??3 mg, By Mouth, Daily at bedtime NaCl 0.9% Flush 3ml (NaCL 0.9% Flush) ??3 mL, IV Push, Every 8 hours Polyethylene Glycol 17 Gm Powder (MiraLax Powder) ??17 Gm 1 pack/packet, By Mouth, Daily Senna 8.6 mg / Docusate 50 mg tablet (Docusate/Senna Tablet) ??1 tablet, By Mouth, 2 times a day Simethicone 80 mg Chewable Tablet (Simethicone Tablet) ??80 mg, Chew, 3 times a day ? Results Recent Labs BLOOD COUNT & DIFF WBC 10.6 k/mm3 ()?? 01/21/2023 15:41 RBC 4.03 m/mm3 (Low)?? 01/21/2023 15:41 Hgb 11.7 Gm/dL (Low)?? 01/21/2023 15:41 Hct 33.6 % (Low)?? 01/21/2023 15:41 MCV 83.4 femtoliters ()?? 01/21/2023 15:41 MCH 29.0 pg ()?? 01/21/2023 15:41 MCHC 34.8 g/dL ()?? 01/21/2023 15:41 Platelet Count 220 k/mm3 ()?? 01/21/2023 15:41 RDW-SD 38.5 femtoliters ()?? 01/21/2023 15:41 MPV 9.2 femtoliters (Low)?? 01/21/2023 15:41 Nucleated RBC (Automated) 0.0 #/100 WBC'S ()?? 01/21/2023 15:41 Abs. NRBC 0.0 k/mm3 ()?? 01/21/2023 15:41 Abs. Neut 8.8 k/mm3 (High)?? 01/21/2023 15:41 Abs. Lymph 0.6 k/mm3 (Low)?? 01/21/2023 15:41 Abs. [place] 0.8 k/mm3 ()?? 01/21/2023 15:41 Abs. Eo 0.4 k/mm3 ()?? 01/21/2023 15:41 Abs. Baso 0.1 k/mm3 ()?? 01/21/2023 15:41 Neut % 82.9 % (High)?? 01/21/2023 15:41 Lymph % 5.2 % (Low)?? 01/21/2023 15:41 [place] % 7.0 % ()?? 01/21/2023 15:41 Eos % 3.9 % ()?? 01/21/2023 15:41 Baso % 0.7 % ()?? 01/21/2023 15:41 Imm Gran 0.3 % ()?? 01/21/2023 15:41 Abs. Imm Gran 0.0 k/mm3 ()?? 01/21/2023 15:41 ?? CHEM GENERAL Sodium 129 mmol/L (Low)?? 01/21/2023 15:41 Potassium 3.8 mmol/L ()?? 01/21/2023 15:41 Chloride 91 mmol/L (Low)?? 01/21/2023 15:41 Bicarbonate Level 25 mmol/L ()?? 01/21/2023 15:41 Anion Gap 13 ()?? 01/21/2023 15:41 Glucose Level 127 mg/dL (High)?? 01/21/2023 15:41 BUN 19 mg/dL ()?? 01/21/2023 15:41 Creatinine-Blood 1.1 mg/dL ()?? 01/21/2023 15:41 Estimated GFR Creatinine 71 ML/MIN/1.73 M2 ()?? 01/21/2023 15:41 Calcium 9.4 mg/dL ()?? 01/21/2023 15:41 Protein, Total 7.3 Gm/dL ()?? 01/21/2023 15:41 Albumin 4.3 Gm/dL ()?? 01/21/2023 15:41 AG Ratio 1.4 ()?? 01/21/2023 15:41 Alkaline Phosphatase 82 units/L ()?? 01/21/2023 15:41 Lipase 14 units/L ()?? 01/21/2023 15:41 AST (SGOT) 15 units/L ()?? 01/21/2023 15:41 ALT (SGPT) 14 units/L ()?? 01/21/2023 15:41 Bilirubin, Total 0.2 mg/dL ()?? 01/21/2023 15:41 Lactate 1.2 mmol/L ()?? 01/21/2023 15:41 C-Reactive Protein 9.4 mg/dL (High)?? 01/21/2023 15:41 ?? HEME OTHER Sed Rate 40 mm/hr (High)?? 01/21/2023 22:50 Hold Lavender Top SPECIMEN DISCARDED AFTER 24 HOURS. ()?? 01/21/2023 15:41 Hold Blue Top SPECIMEN DISCARDED AFTER 4 HOURS. ()?? 01/21/2023 15:41 ?? MISC. CHEMISTRY Hold Green Top SPECIMEN DISCARDED AFTER 1 WEEK ()?? 01/21/2023 15:41 Hold Gel Top SPECIMEN DISCARDED AFTER 1 WEEK ()?? 01/21/2023 15:41 ?? TOXICOLOGY/TDM Ethanol, Serum or Plasma NONE DETECTED mg/dL ()?? 01/21/2023 15:41 ?? UA/URINALYSIS Appear/Color, Urine YELLOW ()?? 01/21/2023 15:39 Clarity CLEAR ()?? 01/21/2023 15:39 Specific Balsam, Urine 1.015 ()?? 01/21/2023 15:39 pH, Urine 6.5 ()?? 01/21/2023 15:39 Albumin, Urine TRACE (Abnormal)?? 01/21/2023 15:39 Glucose, Urine NEGATIVE ()?? 01/21/2023 15:39 Ketones, Urine NEGATIVE ()?? 01/21/2023 15:39 Bilirubin, Urine NEGATIVE ()?? 01/21/2023 15:39 Hemoglobin, Urine NEGATIVE ()?? 01/21/2023 15:39 Nitrite, Urine NEGATIVE ()?? 01/21/2023 15:39 Leukocyte, Urine NEGATIVE ()?? 01/21/2023 15:39 Urobilinogen NORMAL mg/dL ()?? 01/21/2023 15:39 WBC's, Urine 3 /HPF ()?? 01/21/2023 15:39 RBC's, Urine 4 /HPF (High)?? 01/21/2023 15:39 Squamous Epith 1 /HPF ()?? 01/21/2023 15:39 Hyaline Cast 1 LPF ()?? 01/21/2023 15:39 Mucus SLIGHT /LPF ()?? 01/21/2023 15:39 Hold Urine Culture Testing available 48 hours from time of collection. ()?? 01/21/2023 15:39 ?? URINE OTHER Est Creatinine Clearance 59.61 mL/min ()?? 01/21/2023 16:12 ?? VIROLOGY COVID-19 PCR Specimen Source NASAL ()?? 01/22/2023 06:16 COVID-19 PCR Result NEGATIVE ()?? 01/22/2023 06:16 ? Hospital Progress note * Bruna Webb LPN: PERFORM, SIGN, VERIFY Event Display: Progress Note Hospital Authored Date: Patient: LUIS ANGEL MIMS Age: 72 years Sex: Male : 1950 Associated Diagnoses: None Author: Bruna Webb LPN Findings Narrative/Incidental A/A&Ox3, VSS, pt. D/Cing home today with VNA services. This nurse went over D/C instructions, medlist and Khan Cath instructions i.e. including but not limited to changing khan bag & empty.switching bag to leg bag, etc. Pt. also given Oxycodone 10mg @1130 & IV Dapto via R Chest watkins @1130. pt. states that he knows how to manage Watkins and has supplies for it @ home. pt. amb to [facility] and had BM. Khan Cath emptied for 400cc conc yellow urine. Gave copy of D/C summary and instructions, also highlighted med list and important info. Awaiting for to arrive back on unit, to call for transport to bring pt. to [facility] for D/C.. Discharge Information Case Management Discharge Plan : Case Management Discharge Plan Data 01/31/2023 11:07 EDT Discharge Level of Care at Discharge Homehealth/VNA Discharge VNA/Hospice/Home Care [facility] [phone] Discharge Medical Equipment Companies [facility] Name of Agency #1 [facility] Name of Agency #1 [facility] Community Health Education Coordinator #1 intake Service Categories #1 Physical Therapy, Group Home Service Comments #1 You will be discharged and resuming services with [facility] for half-way and physical therapy services in your home. If you have any questions please call the agency directly if you have any questions. Service Categories #2 Home IV antibiotics Service Comments #2 You will resume services with [facility] for home IV antibiotics. If you have any questions please call the agency directly. * Laura Win MD: PERFORM Event Display: Progress Note Hospital Authored Date: Patient: ??LUIS ANGEL MIMS ? Age:??72 Years?Sex:??Male?:??1950?? Subjective Patient this morning stated his pain was 'worse than ever'. Had poor nights sleep, woke up with pain. At time of initial review, had not received AM meds. When reviewed in afternoon following receiptof medications patient was objectively more comfortable. States he had some relief from passing bowel movement yesterday, but that pain was no better today. Enquired as to patients mood at present, became tearful, stated he was concerned with his pain. ?? Had long discussion with patient + (see assessment and plan), with aid of social work case manager also. Review of Systems Negative unless stated in HPI. Objective Vital Signs?? Temperature: 98.7 DegF (01/30/23 08:00:00) Temperature Route: Oral (01/30/23 08:00:00) Pulse Rate: 82 bpm (01/30/23 08:00:00) Respiratory Rate: 16 br/min (01/30/23 16:29:00) Systolic Blood Pressure: 132 mm Hg (01/30/23 09:10:00) Diastolic Blood Pressure: 78 mm Hg (01/30/23 09:10:00) Blood pressure sites: Arm, left (01/30/23 08:00:00) Mean Arterial Pressure: 96 mm Hg (01/29/23 20:52:00) Pulse Pressure: 62 mm Hg (01/29/23 20:52:00) Oxygen Saturation: 99 % (01/30/23 08:00:00) Mode of Delivery (Oxygen): Room air (01/30/23 08:00:00) Early Warning Score: 1 (01/30/23 17:20:37) ? Physical Exam General Appearance: The patient was in no acute distress in the late morning, moving around the bedwithout limitation/grimacing/whincing Cardiovascular: RRR S1 and S2 heard. No murmurs, gallops, or rubs appreciated. Respiratory: ??Breath sounds clear to auscultation bilaterally. No wheezing. Good air movement throughout both lungs. GI: Soft. Nontender, slightly distended. BS+ (less sluggish compared to yesterday) Skin:??No erythema overlying hickmann Neuro: ??No slurred speech. ambulating without difficulty Psych: Alert and oriented. _ Home Medications Amlodipine (amLODIPine 10 mg oral tablet)?10?Milligram?1?tablet?By Mouth?Daily Aspirin (aspirin 81 mg oral delayed release tablet)?81?Milligram?1?tablet?By Mouth?Daily?for 30?Days Atorvastatin (atorvastatin 40 mg oral tablet)?1?tab(s)?40?Milligram?By Mouth?Daily?for 30?Days?replaces Simvastatin Celecoxib (celecoxib 200 mg oral capsule)?1?capsule?200?Milligram?By Mouth?2 times a day?for 30?Days Clobetasol Topical (Impoyz 0.025% topical cream)?1?claudio?Topically?2 times a day Cyanocobalamin (Vitamin B12 1000 mcg oral tablet)?1?tab(s)?1,000?Microgram?By Mouth?Daily Daptomycin (DAPTOmycin 500 mg intravenous injection)?600?Milligram?IV Infusion?Every 24hours?for 22?Days?completion date 02/09 Miscellaneous Rx (Epiderm)?Topically Multivitamin (Super B Complex)?1?tab(s)?By Mouth?Daily Multivitamin With Minerals (multivitamin with minerals Multiple Vitamins with Minerals oral tablet)?1?tab(s)?By Mouth?Daily Omeprazole (omeprazole 20 mg oral enteric coated capsule)?1?capsule?20?Milligram?By Mouth?Daily Oxycodone (oxyCODONE 5 mg oral tablet)?10?Milligram?By Mouth?Every 6 hours?as needed?Pain , Moderate Polyethylene Glycol 3350 (MiraLax oral powder for reconstitution)?17?gram?By Mouth?Daily?dissolve in water before taking Senna (Senna 8.6 mg oral tablet)?8.6?Milligram?1?tab(s)?By Mouth?Daily ? Inpatient Medications Medications (27) Active SCHEDULED: (21) Acetaminophen 325 mg Tablet (Acetaminophen Tablet) ??650 mg, By Mouth, 4 times a day Amlodipine 10 mg Tablet (amLODIPine 10 mg oral tablet) ??10 mg, By Mouth, Daily Aspirin 81 mg EC Tablet (aspirin 81 mg oral delayed release tablet) ??81 mg, By Mouth, Daily Atorvastatin 40 mg Tablet (atorvastatin 40 mg oral tablet) ??40 mg, By Mouth, Daily Daptomycin 500 mg Inj (DAPTOmycin Inj) ??600 mg 12 mL, IV Push Slowly, Every 24 hours Enoxaparin 40 mg Inj (Enoxaparin Inj) ??40 mg 0.4 mL, Subcutaneous Injection, Daily Folic Acid 1 mg Tablet (Folic Acid Tablet) ??1 mg, By Mouth, Daily Gabapentin 100 mg Capsule (gabapentin 100 mg oral capsule) ??100 mg, By Mouth, Daily at bedtime Gabapentin 300 mg Capsule (gabapentin 300 mg oral capsule) ??300 mg, By Mouth, 2 times a day Gabapentin 400 mg Capsule (gabapentin 400 mg oral capsule) ??400 mg, By Mouth, Daily at bedtime Lidocaine 5% Topical Patch (Lidocaine 5% Patch) ??1 each, Topically, Daily Multivitamin Tablet ??1 tablet, By Mouth, Daily NaCl 0.9% Flush 3ml (NaCL 0.9% Flush) ??3 mL, IV Push, Every 8 hours OxyCODONE 5 mg IR Tablet (oxyCODONE 5 mg oral tablet) ??10 mg, By Mouth, Every 6 hours Pantoprazole 20 mg EC Tablet (pantoprazole 20 mg oral delayed release tablet) ??20 mg, By Mouth, Daily Polyethylene Glycol 17 Gm Powder (Polyethylene Glycol Powder) ??17 Gm 1 pack/packet, By Mouth, Daily Pyridoxine 50 mg Tablet (Pyridoxine Tablet) ??50 mg, By Mouth, Daily Remove Patch (Remove Lidocaine Patch) ??1 each, Topically, Daily at bedtime Senna 8.6 mg / Docusate 50 mg tablet (Docusate/Senna Tablet) ??1 tablet, By Mouth, 2 times a day Tamsulosin 0.4 mg Capsule (Flomax 0.4 mg oral capsule) ??0.4 mg, By Mouth, Daily Thiamine 100 mg Tablet (thiamine 100 mg oral tablet) ??100 mg, By Mouth, Daily CONTINUOUS: (0) PRN: (6) Bisacodyl 10 mg Suppository (Bisacodyl Supp) ??10 mg 1 supp, Rectally, Daily Melatonin 3 mg Tablet (Melatonin Tablet) ??3 mg, By Mouth, Daily at bedtime NaCl 0.9% Flush 3ml (NaCL 0.9% Flush) ??3 mL, IV Push, Every 8 hours OxyCODONE 5 mg IR Tablet (oxyCODONE 5 mg oral tablet) ??5 mg, By Mouth, Every 12 hours Polyethylene Glycol 17 Gm Powder (MiraLax Powder) ??17 Gm 1 pack/packet, By Mouth, Daily Simethicone 80 mg Chewable Tablet (simethicone 80 mg oral tablet, chewable) ??80 mg, Chew, 3 times a day ? 72 Hour Antibiotic History Active Antibiotics Calendar Day Last Administered First Administered Daptomycin??600 mg, 12 mL, IV Push Slowly, Every 24 hours ?9 01/30/2023 15:29 01/22/2023 17:18 ? Results Recent Labs BLOOD COUNT & DIFF WBC 11.0 k/mm3 ()?? 01/29/2023 05:10 RBC 3.92 m/mm3 (Low)?? 01/29/2023 05:10 Hgb 10.9 Gm/dL (Low)?? 01/29/2023 05:10 Hct 32.7 % (Low)?? 01/29/2023 05:10 MCV 83.4 femtoliters ()?? 01/29/2023 05:10 MCH 27.8 pg ()?? 01/29/2023 05:10 MCHC 33.3 g/dL ()?? 01/29/2023 05:10 Platelet Count 288 k/mm3 ()?? 01/29/2023 05:10 RDW-SD 38.5 femtoliters ()?? 01/29/2023 05:10 MPV 9.7 femtoliters ()?? 01/29/2023 05:10 Nucleated RBC (Automated) 0.0 #/100 WBC'S ()?? 01/29/2023 05:10 Abs. NRBC 0.0 k/mm3 ()?? 01/29/2023 05:10 ?? CHEM GENERAL Sodium 133 mmol/L ()?? 01/29/2023 05:10 Potassium 4.8 mmol/L ()?? 01/29/2023 05:10 Chloride 95 mmol/L (Low)?? 01/29/2023 05:10 Bicarbonate Level 26 mmol/L ()?? 01/29/2023 05:10 Anion Gap 12 ()?? 01/29/2023 05:10 Glucose Level 88 mg/dL ()?? 01/29/2023 05:10 BUN 15 mg/dL ()?? 01/29/2023 05:10 Creatinine-Blood 0.8 mg/dL ()?? 01/29/2023 05:10 Estimated GFR Creatinine 95 ML/MIN/1.73 M2 ()?? 01/29/2023 05:10 Phosphorus 4.5 mg/dL ()?? 01/29/2023 05:10 Magnesium 1.5 mg/dL (Low)?? 01/29/2023 05:10 ?? ENDOCRINE/TUMOR MARKER PSA 0.9 ng/mL ()?? 01/29/2023 05:10 ?? URINE OTHER Est Creatinine Clearance 83.02 mL/min ()?? 01/29/2023 06:12 ? Assessment/Plan 72-year-old male with past medical history of hypertension, hyperlipidemia, CAD, thoracic aneurysm,psoriasis recently on adalimumab, T9-T10 discitis on daptomycin (admission 10/12-10/20 for MRSA bacteremia) who presented to [facility] for concern of fever and increasing back/abdominal pain. Imaging revealed concern for a epidural phlegmon vs abscess at T9/T10 and was transferred to [facility] for urgent MRI. ?? Neurosurgery does not currently recommend surgical intervention at this time as he has no focal deficits. Infectious disease has been consulted as patient is still spiking fevers on daptomycin. Patient hesitations primarily related to pain control, for which team has attempted to alleviate stool burden with aggressive bowel regimen and neuropathic type pain 2/2 infection with adding, uptitrating gabapentin, opioids, etc. in multimodal pain control approach. Of note extensive workup of abdpain only noted moderate to higher stool burden and no evidence of acute abdomen, obstruction, transaminitis, UTI. Likely discharge home tomorrow. ?? Phone conversation today between myself, social work case manager, case supervisor and patients . Discussed plan for overnight analgesic management, increased gabapentin + to request PRNs as needed. Discussed morning times being difficult, explained at home may be easier to get medicines earlier compared to on avila. Discussed that patient must seek care from PCP for prescription of analgesia, in particularopoids, in 2-3 days after discharge home. Social work will help for this to be arranged. 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 Discussed that aim is for better night tonight from pain control perspective for patient, with discharge home tomorrow and aim for outpatient ID appt on . ?? 1. Epidural phelgmon vs spinal epidural abscess at T9-T10 2. Hx of T9-T10 Discitis on daptomycin Stable from infection standpoint, pain improved, no fevers. Plan: ??? Will continue home daptomycin ??? Neurosurgery consulted previously, no focal deficits, no interventions at present ??? BCx negative, ESR/CRP/fever curve relatively stable - f/u with ID outpatient as per them - On tylenol scheduled, uptitrated gabapentin to 300mg BID + gabapentin 500mg QHS, lidopatches, scheduled+prn oxycodone. Pt instructed strictly on importance of requesting PRN pain medications offered to help with overnight pain he continues to complain of.? 3. Right lower abd/suprapubic discomfort ?Constipation sched bowel regimen LFTs normal, abd XR unremarkable, UA unremarkable ?gas vs. gerd vs. other etiology Plan: - continue bowel regimen, pt notes some improvement after substantial BMs - on tylenol scheduled, uptitrated gabapentin to 300mg BID + gabapentin 500mg QHS, lidopatches, scheduled+prn oxycodone. Pt instructed strictly on importance of requesting PRN pain medications offered to help with overnight pain he continues to complain of.? 4. Alcohol use disorder Patient states he drinks 5-6 beers daily for the last 50 years Never had withdrawal seizures Off CIWA - SW consult, MV, pyridoxine, thiamine, follow up with PCP ?? 5. 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 Fluid restriction started per renal recs with improvement of sodium. - outpatient renal follow up and consideration of tolvaptan (is not available inpatient) as per them; while inpatient ct fluid restriction and ct to monitor ?? 6. Urinary retention longstanding history of LUTS, khan placed on admission - Failed voiding trial, khan placed - started on tamsulosin - spoke to urology team, patient can arrange sooner apt once discharged but must directly call the office --- this was relayed to pt+. ?? 7. Chronic stable medical conditions: Hypertension???continue amlodipine 10 mg daily CAD/hyperlipidemia???continue aspirin 81 mg, atorvastatin 40 mg GERD???on home omeprazole 20 mg, not on formulary and will use pantoprazole inpatient ?? Quality Measures: Diet - Cardiac diet DVT prophylaxis - Lovenox Code Status - Full ? Patient seen and discussed with attending, ?? MAC Porter PGY-1, internal medicine-pediatrics?? Pager Number [phone] * Brianna Mckeon MD: PERFORM Event Display: Progress Note Hospital Authored Date: Attending Attestation:??I have seen and examined this patient on date of service. ??I have discussed the case and its management with the resident and agree with the findings and plan as documented in the resident???s note. * Ruchi Irwin RN: VERIFY, PERFORM, SIGN Event Display: Progress Note Hospital Authored Date: Patient: LUIS ANGEL MIMS Age: 72 years Sex: Male : 1950 Associated Diagnoses: None Author: Ruchi Irwin RN Findings Narrative/Incidental pt reports a decrease in pain and pressure since cath was placed yesterday pt has concerns on why he is retaining for this is new dx for this pt, pt had positive relief for hip and back pain with medication and repositioning . Consult note * Hayden AUGUSTE, Kg: SIGN, MODIFY Sandra Blood: PERFORM, MODIFY Sandra Blood: MODIFY, MODIFY Sandra Blood: MODIFY, MODIFY Sandra Blood: MODIFY, MODIFY Sandra Blood: MODIFY, SIGN Sandra Blood: SIGN, VERIFY Sandra Blood: VERIFY Event Display: Consultation Note Authored Date: [id number] Patient: LUIS ANGEL MIMS Age: 72 years Sex: Male : 1950 Associated Diagnoses: None Author: Sandra Blood [facility]phrology Consultation Note Reason for Consult: Hyponatremia History of Present Illness Luis Angel Mims is a 72 y/o M w/ PMH significant for HTN, HLD, CAD, T9-T10 discitis on Daptomycin, Thoracic aneurysm, psoriasis recently on adalimumab, alcohol use disorder who presented initially to [facility] on 01/21/23 with fever, and increasing back and abdominal pain. Of note, pt has had recent admission on 01/03 to 01/12/23 for osteomyelitis of T9- T10 (during this admission, RTANE was consulted for ROC likely ATN 2/2 Vancomycin injury) as well as from 01/17-01/18/23 inthe setting of back pain 2/2 his osteomyelitis. In the ED, CT Chest/Abd/Pelvis/Lumbar spine/Thoracic Spine showed discitis/osteomyelitis at T9-T10 and a paraspinal fluid collection suggestive of a possible small abscess/phlegmon measuring 1 cm. Pt was transferred to [facility] for an urgent MRI which showed persistent findings ofdiscitis/osteomyelitis at T9-T10 with further erosive change and collapse of the superior aspect ofthe T10 vertebral body; persistent epidural phlegmon at T9-T10, slightly decreased; Paraspinal phlegmon with small paravertebral abscesses on the left side which are slightly decreased in size from the previous exam. Neurosurgery was consulted who recommended no surgical intervention at this time as he has no focal deficits. ID was consulted as well, who recommended continuing Daptomycin. Of note, upon admission Na was 129 meq/L, and ranging between 127-129 since admission. Nephrology was consulted for hyponatremia. Upon visit w/ pt, pt reports he presented for back pain and side pain, pt denies fever at presentation. Pt reports he eats a little bit of everything in his diet. Reports he drinks one big cup of water a day, if that; and admits to little water intake. At this time, pt reports back pain and bilateral flank pain. Denies chest pain, SOB, nausea, vomiting, abdominal pain, lower extremity edema. Review of Systems As mentioned in HPI, otherwise negative Health Status Allergies: Allergies (Active and Proposed Allergies Only) lisinopril (Severity: Unknown severity, Onset: Unknown) Reactions: Nausea penicillin (Severity: Unknown severity, Onset: Unknown) Comments: Rash Past Medical History: Esophagitis Tubular adenoma Borderline anemia Constipation Coronary artery calcification seen on CT scan Coronary artery disease Diskitis Dyshidrotic eczema hands Dyspnea on exertion Erectile dysfunction Family history of prostate cancer brother Hypercholesterolemia Hypertension Intractable back pain Moderate drinker of alcohol Nasal congestion Osteoarthritis of right knee Osteomyelitis Thoracic aortic aneurysm Medications: Amlodipine (amLODIPine 10 mg oral tablet) 10 Milligram 1 tablet By Mouth Daily Aspirin (aspirin 81 mg oral delayed release tablet) 81 Milligram 1 tablet By Mouth Daily for 30 Days Atorvastatin (atorvastatin 40 mg oral tablet) 1 tab(s) 40 Milligram By Mouth Daily for 30 Days replaces Simvastatin Celecoxib (celecoxib 200 mg oral capsule) 1 capsule 200 Milligram By Mouth 2 times a day for 30 Days Clobetasol Topical (Impoyz 0.025% topical cream) 1 claudio Topically 2 times a day Cyanocobalamin (Vitamin B12 1000 mcg oral tablet) 1 tab(s) 1,000 Microgram By Mouth Daily Cyclobenzaprine (cyclobenzaprine 10 mg oral tablet) 10 Milligram 1 tablet By Mouth 3 times a day asneeded for 10 Days for spasm Daptomycin (DAPTOmycin 500 mg intravenous injection) 600 Milligram IV Infusion Every 24 hours for 22 Days completion date 02/09 Miscellaneous Rx (Epiderm) Topically Multivitamin (Super B Complex) 1 tab(s) By Mouth Daily Multivitamin With Minerals (multivitamin with minerals Multiple Vitamins with Minerals oral tablet)1 tab(s) By Mouth Daily Omeprazole (omeprazole 20 mg oral enteric coated capsule) 1 capsule 20 Milligram By Mouth Daily Oxycodone (oxyCODONE 5 mg oral tablet) 10 Milligram By Mouth Every 6 hours as needed Pain , Moderate Polyethylene Glycol 3350 (MiraLax oral powder for reconstitution) 17 gram By Mouth Daily dissolve in water before taking Senna (Senna 8.6 mg oral tablet) 8.6 Milligram 1 tab(s) By Mouth Daily Social History: Alcohol Details: Use: Current. Frequency: Daily. Type: Beer. Other: few beers every day. 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 Exercise Details: Regular exercise: Yes. Exercise frequency: 3-4 times/week. Exercise type: Walking. Home/Environment Details: Living situation: Home/Independent. Lives with: Spouse. Nutrition/Health Details: Diet: Regular. Caffeine intake amount: one coffee daily. Substance Abuse Details: Use: Never. Tobacco Details: Former smoker, Type: Cigarettes. Started at age: 9 Years. Stopped at age: 29 Years. Electronic Cigarette/Vaping Details: Electronic Cigarette Use: Never. Family History: Father: Depression; Suicide Brother (Ryland): Cancer of prostate Other (paternal uncle): Cancer of prostate Physical Examination Temperature 98.7 (07:39) Systolic Blood Pressure 133 (08:15) Diastolic Blood Pressure 71 (08:15) Pulse 99 (07:39) SpO2 94 (07:39) Respiratory Rate 18 (11:24) Physical Exam: General: Patient appears in no acute distress. HEENT: Moist mucous membranes noted. Cardiovascular: Regular rate and rhythm. Respiratory: Lungs clear to auscultation bilaterally. Abdominal: Soft, nontender. Extremities: No lower extremity edema. All extremities warm to touch Neuro: Alert and oriented to person, place, time. Results Review General results Today's results 01/25/2023 1:19 EDT Sodium 128 mmol/L L Potassium 3.4 mmol/L L Chloride 88 mmol/L L Bicarbonate Level 27 mmol/L Anion Gap 13 Glucose Level 102 mg/dL H BUN 13 mg/dL Creatinine-Blood 0.8 mg/dL Estimated GFR Creatinine 93 ML/MIN/1.73 M2 Osmolality 260 mOs/kg L Calcium 8.9 mg/dL Magnesium 1.3 mg/dL L Impression and Plan Luis Angel Mims is a 72 y/o M w/ PMH significant for HTN, HLD, CAD, T9-T10 discitis on Daptomycin, Thoracic aneurysm, psoriasis recently on adalimumab, alcohol use disorder who presented initially to [facility] on 01/21/23 with fever, and increasing back and abdominal pain. Pt was transferred to [facility] for an urgent MRI which showed persistent findings of discitis/osteomyelitis at T9-T10 with further erosive change and collapse of the superior aspect of the T10 vertebral body; persistent epidural phlegmon at T9- T10, slightly decreased; Paraspinal phlegmon with small paravertebral abscesses on the left side which are slightly decreased in size from the previous exam. Nephrology was consulted for hyponatremia. 1. Hyponatremia Na ranging 127-129 w/ Na 128 upon admission Drea 112, UOsm 531 (01/25) SOsm 260 (01/25) Likely a hypoosmolar euvolemic hyponatremia as supported by SOsm, Drea, and physical exam findings. Likely SIADH in the setting of pt's back pain, this is supported by pt's elevated Drea and UOsm. Plan: - F/u TSH, Cortisol level - Urea 15 gm x1 dose - Tolvaptan 15 mg x1 dose - Monitor electrolytes - Fluid restriction 1.5 L/day - Do not correct Na at a rate greater than 6-8 mEq/L in a 24 hour period Thank you for the courtesy of this consult, RTANE will continue monitoring the patient along with you please do not hesitate to call us with any further questions Sandra Pritchard PA-C [facility] [address] , [address] Available by [facility] * Hayden AUGUSTE, Kg: PERFORM Event Display: Consultation Note Authored Date: I have evaluated the patient and discussed the plan with Sandra Pritchard PA-C. * Moody Jimenez MD: PERFORM, SIGN, VERIFY Event Display: Consultation Note Authored Date: [id number] Patient: LUIS ANGEL MIMS Age: 72 years Sex: Male : 1950 Associated Diagnoses: None Author: Moody iJmenez MD INFECTIOUS DISEASES CONSULTATION NOTE Requesting Attending/Provider: Dr. Prakash Reason for Consult: Source of Information: CIS, patient History of Present Illness ([id number]: HPI ???4): This is a pleasant 72-year-old man with psoriasis on adalimumab. 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 Initially he was treated with vancomycin and ceftriaxone but after culture showed evidence of MRSA this was simplified to vancomycin. PICC line did not seem very attractive given concernabout potential complications in the setting of active psoriasis lesions and therefore was transition to dalbavancin to complete his therapy receiving a dose on 10/20/2022 and a repeat one on 10/27/2022. He was then subsequently placed on oral doxycycline on 11/22/2022 for an additional 2 weeks, whichhe completed without any significant issues. However was readmitted with worsening back pain and repeat MRI on 01/03/2023 showed relapse of his infection. Suspecting MRSA as a culprit he was restartedon vancomycin and biopsy performed to further assess. It does seem that the patient developed some acute kidney injury suspected to be related to vancomycin reason for which patient transition to daptomycin with a plan to complete a 6 weeks course. Biopsies were unrevealing showing no growth (although patient had been on 2 days of therapy by the time this was obtained) and 16 S ribosomal PCR was a lso noted to be negative. He was discharged and seems to have been tolerating therapy well but did return on 01/17/2023 with worsening back pain. Seems that this was poorly controlled but it seems thatafter some pain medication was provided with noted improving inflammatory markers, patient was discharged the following day. Returns yet again on 01/21/2023 with ongoing back pain now with a fever episode and abdominal discomfort. Repeat imaging was performed which shows stable/improving findings but given concern in the setting of the fever as well as being noted with urinary retention, patient was admitted for further management. Patient did undergo Khan catheter placement and was continued on daptomycin. Neurosurgery did evaluate the patient and refers that at this time there is no clear evidence of worsening of the spine that would warrant a surgical intervention. Today the patient refers he is feeling better take into account that his pain is much better controlled. When asked about the fever he refers he has not had a single febrile episode or chill in the entire time since October 2022 since all this started. Does mention that he has been having some issues with constipation and that over the past few days had notedurinary difficulty. Beyond this he offers no other complaint. Past Medical and Surgical History: As noted above patient with significant psoriasis on adalimumab. Also noted with hypertension and associated dyslipidemia and CAD. Does have a stable thoracic aortic aneurysm as well as a right totalknee arthroplasty. As noted above diagnosed with thoracic spine discitis/osteomyelitis with associated phlegmon and paraspinal abscesses started on vancomycin and discharged on dalbavancin with relapse in December 2022 initially started on vancomycin but transition to daptomycin due to acute kidney injury. Presently pending to finish his treatment on 02/15/2023 Recent Antimicrobials: -Presently on daptomycin Medications: Reviewed Antimicrobial Allergies: No known antimicrobial allergies. Family History: No concerning family history in first or second-degree relatives related to infectious diseases Social History: Denies history of tobacco or illicit drug use. Does appear to drink anywhere between 5-6 beers a day for the past 50 years but no evidence of withdrawal with any of his admissions Review of Systems Denies any fever, chills, visual disturbance, oral problems, hearing issues, chest pain, palpitations, shortness of breath, nausea, vomiting, diarrhea, problems with urination, decreased sensation orstrength in any extremities, easy bruising or swollen lymph nodes, joint pains, muscle aches, or any changes in weight or sensation of temperature. Physical Examination (66757: 2-7 organ systems or comprehensive single system exam; 59509/47823: 8 organ systems or comprehensive single system exam) .VitalsTemperature 98.9 (15:49) Systolic Blood Pressure 128 (15:49) Diastolic Blood Pressure 76 (15:49) Pulse 98 (15:49) SpO2 95 (15:49) Respiratory Rate 20 (15:49) GENERAL: In no acute distress HEENT: Anicteric, no subconjunctival petechiae, moist oral mucosa without lesions or thrush NECK: Neck supple, without cervical lymphadenopathy CARDIOVASCULAR: Regular rate and rhythm. Not able to appreciate any murmurs, rubs, or gallops. No peripheral edema. RESPIRATORY: Lungs clear to auscultation GASTROINTESTINAL: Non-distended, normoactive bowel sounds, non-tender GENITOURINARY: No CVAT MUSCULOSKELETAL: Without joint effusions, no tenderness over spine SKIN: No diffuse rash present, no stigmata of infective endocarditis. Does have some psoriatic patches over the lower extremities but is fairly benign appearing. No clear evidence of psoriatic patches over the upper extremities NEUROLOGICAL/PSYCH: A&Ox3, grossly intact Results Review General results All Labs 01/22/2023 6:16 EDT COVID-19 PCR Specimen Source NASAL COVID-19 PCR Result NEGATIVE 01/21/2023 22:50 EDT Sed Rate 40 mm/hr H 01/21/2023 15:44 EDT COVID-19 PCR Specimen Source NASAL COVID-19 PCR Result NEGATIVE 01/21/2023 15:41 EDT WBC 10.6 k/mm3 RBC 4.03 m/mm3 L Hgb 11.7 Gm/dL L Hct 33.6 % L MCV 83.4 femtoliters MCH 29.0 pg MCHC 34.8 g/dL Platelet Count 220 k/mm3 Neut % 82.9 % H Lymph % 5.2 % L [place] % 7.0 % Eos % 3.9 % Baso % 0.7 % Sed Rate 48 mm/hr H Sodium 129 mmol/L L Potassium 3.8 mmol/L Chloride 91 mmol/L L Bicarbonate Level 25 mmol/L Anion Gap 13 Glucose Level 127 mg/dL H BUN 19 mg/dL Creatinine-Blood 1.1 mg/dL AST (SGOT) 15 units/L ALT (SGPT) 14 units/L Bilirubin, Total 0.2 mg/dL C-Reactive Protein 9.4 mg/dL H Ethanol, Serum or Plasma NONE DETECTED mg/dL 01/21/2023 15:39 EDT Appear/Color, Urine YELLOW Clarity CLEAR Specific Balsam, Urine 1.015 pH, Urine 6.5 Albumin, Urine TRACE Glucose, Urine NEGATIVE Ketones, Urine NEGATIVE Bilirubin, Urine NEGATIVE Hemoglobin, Urine NEGATIVE Nitrite, Urine NEGATIVE Leukocyte, Urine NEGATIVE Urobilinogen NORMAL mg/dL WBC's, Urine 3 /HPF RBC's, Urine 4 /HPF H Squamous Epith 1 /HPF Hyaline Cast 1 LPF Mucus SLIGHT /LPF Hold Urine Culture Testing available 48 hours from time of collection. 01/17/2023 14:13 EDT WBC 7.1 k/mm3 C-Reactive Protein 1.3 mg/dL H 01/16/2023 21:48 EDT WBC 10.5 k/mm3 Sed Rate 54 mm/hr H C-Reactive Protein 1.3 mg/dL H 01/15/2023 10:00 EDT WBC 6.4 k/mm3 Sed Rate 43 mm/hr H C-Reactive Protein 1.6 mg/dL H 01/11/2023 1:23 EDT WBC 6.8 k/mm3 01/10/2023 1:44 EDT WBC 7.0 k/mm3 01/09/2023 7:00 EDT WBC 7.0 k/mm3 01/08/2023 1:41 EDT WBC 8.5 k/mm3 Result type: MRI Thoracic Spine W+W/O Contrast Result date: January 22, 2023 1:45 EDT Result status: Auth (Verified) Result title: MRI Thoracic Spine W+W/O Contrast Performed by: Sylvia Taylor MD on January 22, 2023 10:03 EDT Verified by: Sylvia Taylor MD on January 22, 2023 10:03 EDT Encounter info: [id number], [facility] [place]/22/[place]23 - * Final Report * Reason For Exam c/f osteo, c/f SEA;Other: RESULT: MRI Thoracic Spine W+W/O Contrast MRI Thoracic Spine W+W/O Contrast INDICATION: Hx of Present Illness: Transfer for back pain urinary retention; Reason: Other:; c f osteo, c f SEA; Clinical Question(s): Other:; Order Comment: Please see Reference Text for complete list of contraindications Other: TECHNIQUE: MRI of the thoracic spine was performed with and without intravenous contrast utilizing sagittal T1, sagittal T2, sagittal STIR, axial T1, and fat- saturated axial T2-weighted sequences, and post-contrast sagittal T1 and fat- saturated axial T1-weighted sequences. 17 mL of Clariscan was administered intravenously. COMPARISON: CT thoracic spine 01/21/2023, thoracic spine 01/03/2023. FINDINGS: Image quality is degraded by patient motion. Within this technical confine: LOCALIZER: No additional findings on limited localizer images. Khan catheter noted with decompressed bladder and bladder wall thickening. ALIGNMENT, VERTEBRAE, MARROW, AND DISCS: Persistent edema and enhancement throughout the T9 and [id number] bodies with fluid in the disc space compatible with discitis/osteomyelitis complex, with similar appearance on the previous MRI. There is increased height loss of the T10 vertebral body compared to the previous exam. There is height loss at T9 which is similar to the previous exam, with endplate destruction at these levels. Exaggerated thoracic kyphosis. Alignment is otherwise maintained. CORD: There is compression of the spinal cord at the T9 and T10 levels, with increased T2 signal inthe spinal cord. These findings similar to the previous exam. There is persistent circumferential epidural phlegmon at this level with diffuse increased T2 signal and enhancement in the epidural space, and no convincing abscess pocket. The ventral component appears slightly decreased from the previous exam. PARASPINAL TISSUES: Persistent paraspinal soft tissue thickening, edema, and enhancement, as well as a fluid pocket in the left paravertebral soft tissues at T10 now measuring approximately 1.4 x 0.9cm compared to 1.5 x 1.1 cm previously, slightly smaller. A second fluid pocket which extends alongthe costovertebral junction on the left as also slightly decreased to approximately 0.7 x 0.4 cm compared to 0.7 x 0.6 cm previously. Small pleural effusions, decreased from prior. IMPRESSION: Persistent findings of discitis/osteomyelitis at T9-T10 with further erosive change and collapse ofthe superior aspect of the T10 vertebral body compared to 01/03/2023, as also seen on the CT. Persistent epidural phlegmon at T9-T10, slightly decreased, though there is still spinal cord compression and abnormal T2 signal in the spinal cord at this level. Paraspinal phlegmon with small paravertebral abscesses on the left side which are slightly decreased in size from the previous exam. Small pleural effusions, decreased from 01/03/2023. A similar preliminary report was provided by [facility]. Microbiology: Culture/Event_id: Blood Culture, Second Order/[id number] Collect date: 01/17/23 14:50 Result Status: Preliminary Result Date: 01/21/23 23:01 SPECIMEN DESCRIPTION : BLOOD L AC SPECIAL REQUESTS : NONE CULTURE : NO GROWTH 4 DAYS REPORT STATUS : PRELIMINARY REPORT Culture/Event_id: Blood Culture/[id number] Collect date: 01/17/23 13:55 Result Status: Preliminary Result Date: 01/21/23 23:01 SPECIMEN DESCRIPTION : BLOOD SPECIAL REQUESTS : NONE CULTURE : NO GROWTH 4 DAYS REPORT STATUS : PRELIMINARY REPORT Culture/Event_id: Anaerobic Culture/[id number] Collect date: 01/05/23 10:30 Result Status: Auth (Verified) Result Date: 01/19/23 12:57 SPECIMEN DESCRIPTION : JOINT FLUID T9 T10 DISC ASPIRATE SPECIAL REQUESTS : PLEASE NOTE THAT CULTURE RESULTS MAY BE COMPROMISED BY THE LIMITED VOLUME OF SPECIMEN RECEIVED CULTURE : NO ANAEROBES ISOLATED AFTER 14 DAYS REPORT STATUS : FINAL 01/19/2023 Impression and Plan Impression: This is a 72-year-old man with above-mentioned problems and comorbidities. Patient being evaluated because of worsening back pain as well as new onset fever while on daptomycin. Clinically right now he seems to be doing quite well. Seems that with medication his pain is well controlled although continues to have issues with constipation and still has a Khan catheter. If we take away the fever, his clinical presentation of back pain and constipation as well as urinary retention could all be explained in the setting of identified collapse of the superior aspect of the T10 vertebrae as noted inMRI (explaining the pain as well as likely inflammatory markers) and use of pain medication particularly opiates (constipation and urinary retention). This vertebral collapse can certainly explain why when looking at the patient's ESR and CRP the sed rate has been noted to be progressively improving with a slight bump earlier this month, while the CRP has an acute increase in this admission. However, this collapse would not explain a fever of 102 ??F. 1 could suspect potential worsening of the infection in the back of the imaging study with MRI done in this admission does seem to indicate that overall everything seems to be improving. Although the patient still has evidence of discitis and osteomyelitis, it did not appear to be severely progressed with only few further erosive changes as well as the collapse of the vertebrae. The epidural phlegmon as well as paraspinal phlegmon and paravertebral abscesses also appear to be improved. So I do not suspect that there is a severely worsening infectious process at the site that is not adequately being covered by daptomycin. Patient did gofull body CT scan when he was admitted showing no evidence of pulmonary, GI, bladder, visualized blood vessels, or soft tissues involved in any type of infectious process. Patient also has no changesin mentation, headaches, visual disturbances, or hearing issues to suspect infection in the head orneck. At this time would suggest that the patient continue therapy with daptomycin while we monitor for any recurrence of fever. Would want to see if the blood cultures show any growth (please repeat sincenone done in this admission) and that the patient had no other localizing symptomatology. We will also want to repeat the ESR and CRP, particularly the CRP in about 48 hours. Would expect that if their elevation and abnormalities were related collapse of the vertebrae, they should be somewhat improved although only marginally in this timeframe. If the patient were to remain afebrile without any localizing symptomatology and this improvement noted, would monitor on therapy with daptomycin. However if increase noted, will need to discuss further course of action including but not limited to repeat biopsy as well as potential discussion with neurosurgery for an open biopsy. Must take into account that we are seeing the patient after a dose of ceftriaxone and although it was a single though this could affect some of what we are seeing to interpret the patient's clinical status. We will need to keep this in mind as we move forward. Do not have a good explanation for thepatient's fever beyond potential viral NOS, although this seems like a horrible copout. We will monitor closely to determine if any other inquiries are necessary Recommendations: -Continue therapy with daptomycin -Monitor fever curve -Repeat ESR and CRP about 48 hours after original acquisition -Monitor for pain, constipation, an urinary retention -Depending on results of ESR and CRP as well as potential recurrence of fever will determine further course of action as noted above Thank you for the consultation. Infectious Diseases will continue to follow the patient with you. Disclaimer: This dictation was accomplished with use of [employer] voice recognition software, prone tomedical word misidentifications and grammatical errors. The physician does strive to identify and correct these, but some could still be present. Please do not hesitate to contact physician for clarifications. Note * Bruna Webb LPN: PERFORM Event Display: Discharge/Transfer Note Hospital Authored Date: [id number] Nursing Discharge Note Entered On: 01/31/2023 12:30 EDT Performed On: 01/31/2023 12:29 EDT by Bruna Webb LPN Nursing Discharge Note 2 Discharge Time : 01/31/2023 13:05 EDT Bruna Webb LPN - 01/31/2023 13:30 EDT Discharge Level of Care at Discharge : Homehealth/VNA Discharge VNA/Hospice/Home Care(v001) : [facility] [phone] Discharge Medical [employer](v001) : [facility] Patient Left Unit Via : Wheelchair Patient Accompanied Off Unit with : Significant other, Other: Hospital staff DC Instructions Provided & Signed by Pt : Yes Patient Understands D/C Instructions : Yes Patient Instructions Discharge Signed : Yes Did Pt have Specialty Bed or Wound Vac : No Jon ARVIZUN, Bruna - 01/31/2023 12:29 EDT * Mike AUGUSTE, Brianna: Laura Jimenez MD: PERFORM Event Display: Discharge/Transfer Note Hospital Authored Date: Patient: ??MIMS, LUIS ANGEL ? Age:??72 Years?Sex:??Male?:??1950?? Patient Information Discharge Location: [facility] Primary Care Physician: Shabana eNwton MD Admit Date/Time: 01/22/23 06:18 Discharge Disposition Discharge Disposition: Home with Home Health Discharge Diagnosis Back pain (M54.9) Osteomyelitis with disciitis Vertebral collapse??associated with osteomyelitis Constipation BPH Urinary retention _ Discharge Medications Acetaminophen (acetaminophen 325 mg oral tablet)?650?Milligram?By Mouth?4 times a day Amlodipine (amLODIPine 10 mg oral tablet)?10?Milligram?By Mouth?Daily Aspirin (aspirin 81 mg oral delayed release tablet)?81?Milligram?By Mouth?Daily Atorvastatin (atorvastatin 40 mg oral tablet)?40?Milligram?By Mouth?Daily Bisacodyl (bisacodyl 10 mg rectal suppository)?1?suppository(ies)?10?Milligram?Rectal ly?Daily?as needed?Constipation?hold for loose stools Cyanocobalamin (Vitamin B12 1000 mcg oral tablet)?1?tab(s)?1,000?Microgram?By Mouth?Daily Daptomycin (DAPTOmycin 500 mg intravenous injection)?600?Milligram?IV Infusion?Every 24hours?for 22?Days?completion date 02/09 Docusate-Senna (docusate-senna 50 mg-8.6 mg oral capsule)?1?capsule?By Mouth?2 times a day?for 30?Days?1 capsule 2 times a day as needed for management of constipation. hold for loose stools. further refills-contact pcp or purchase over the counter. Folic Acid (folic acid 1 mg oral tablet)?1?Milligram?By Mouth?Daily?1 tablet daily for nutrition. refills-contact pcp or purchase over the counter. Gabapentin (gabapentin 300 mg oral capsule)?300?Milligram?1?capsule?By Mouth?3 times a day?for 14?Days?1 capsule in the morning, 1 capsule in the afternoon. For bedtime take 1 capsule and 2 capsules of 100mg for total bedtime dose of 500mg. Contact PCP for refills. Gabapentin (gabapentin 100 mg oral capsule)?200?Milligram?2?capsule?By Mouth?Daily at bedtime?for 14?Days?Take 2 capsules of 100mg along with 1 capsule of 300mg for total nighttime dose of 500mg of gabapentin. further refills - contact pcp Lidocaine Topical (lidocaine 5% topical film)?See Instructions?Apply to right rib area where pain is, daily for 12 hours. remove patches after 12 hours. please purchase 4% or 5% topical films over the counter. Melatonin (melatonin 3 mg oral tablet)?3?Milligram?By Mouth?Daily at bedtime?as needed?Insomnia Multivitamin With Minerals (multivitamin with minerals Multiple Vitamins with Minerals oral tablet)?1?tab(s)?By Mouth?Daily Omeprazole (omeprazole 20 mg oral enteric coated capsule)?1?capsule?20?Milligram?By Mouth?Daily Oxycodone (oxyCODONE 5 mg oral tablet)?5?Milligram?By Mouth?Every 12 hours?as needed?for 3?Days?hold for sedation/sleepiness, altered mental status, confusion. Please ensure at least 2 hrs from last dose or next dose before administered.?Pain , Severe Oxycodone (oxyCODONE 10 mg oral tablet)?1?tab(s)?10?Milligram?By Mouth?Every 6 hours?for 3?Days?hold for sedation/sleepiness, altered mental status, confusion Polyethylene Glycol 3350 (MiraLax oral powder for reconstitution)?17?gram?By Mouth?Daily?17gm daily for management of constipation. dissolve in water before taking. hold for loose stools. further refills-contact pcp or purchase over the counter. Pyridoxine (pyridoxine 50 mg oral tablet)?50?Milligram?By Mouth?Daily?1 tablet dailyfor nutrition. Contact pcp or purchase over the counter for further refills. Simethicone (simethicone 80 mg oral tablet, chewable)?80?Milligram?Chew?3 times a day?as needed?for 14?Days?1 tablet chewable up to 3 times a day as needed for gas pain. refills-contact pcp or purchase over the counter.?Gas Tamsulosin (Flomax 0.4 mg oral capsule)?0.4?Milligram?By Mouth?Daily?1 capsule daily30 minutes after the same meal for management of urinary retention. follow up with pcp and call [facility] urology to schedule outpatient appt for further mgmt and refills. Thiamine (thiamine 100 mg oral tablet)?100?Milligram?By Mouth?Daily?1 tablet daily for nutrition. refills-contact pcp or purchase over the counter. ?? Medications Started Tamsulosin Gabapentin Folic acid thiamine pyridoxine ?? Medications Discontinued None Doses Changed Oxycodone 10mg 6 hourly (scheduled) Oxycodone 5 mg 12 hourly PRN ?? PCP Follow-Up/Heads-Up - Patient presented with uncontrolled back and abdominal pain. Pain regimen adjusted in patient, with addition of gabapentin and scheduled oxycodone. Please reassess analgesic regimen at next appt. - Patient presented with urinary retention, CT showed moderately enlarged prostate, khan catheter in place, tamsulosin started. Will need to see urology outpatient (patient to call to arrange) - Patient diagnosed with SIADH inpatient, seen by renal, requires follow up with renal team and repeat labs in 1 week from date of discharge (february 05) - Patient can be referred to PMR as outpatient if pain control of back pain is not accomplished with current regimen. Future Appointments 2022 10:30 AM EDT ?? With: Dante PARRISH, Concetta Baker Where: [facility] Infectious Disease [address] [place] [id number] Status: Pending Sunday 7:00 AM EDT ?? Where: [facility] [address] [place] [address]- Status: Pending Hospital Course Patient presented on 01/22/2023 with increasing back/abdominal pain, fever difficulty passing urine.Background history of known T9/10 discitis (on daptomycin), MRSA bacteremia in October 31, hypertension, hyperlipidemia, CAD, thoracic aneurysm, psoriasis. ?? Initially to [facility]. Febrile on admission. 82.9% neutrophil count, sed rate 48. Na 129. CRP9.4. Urgently referred to [facility] for neurosurgery input on MRI. MRI thoracic spineshowed persistent epidural phlegmon at T9/T10 and vertebral collapse. Neurosurgery cleared, did notrecommend surgical intervention as patient had no focal deficits on review. Infectious disease reviewed, recommended blood cultures, trending CRP and sedimentation rate, and continuing daptomycin. ?? Patient's blood cultures remained negative. CRP and sedimentation rate down trended prior to discharge home, infectious disease were happy with outpatient follow-up (arranged). ?? Significant issues with pain control during admission. Two primary areas of pain described. RUQ, lateral chest wall pain in keeping with T9/10 dermatomal distribution.??Commenced on gabapentin 300mg twice daily and 500mg at night??for management of likely neuropathic type pain. Oxycodone was switched from PRN to scheduled oxycodone 10mg 6hourly, with 5mg 12hourly??PRN. Other affected area included generalised abdominal pain, deemed likely to be secondary to constipation which was an ongoing issue for the patient. Commenced on regular bowel regimen, and had relief from symptoms post-bowel movements. ?? Urinary retention on admission which was longstanding for the patient, with symptoms consistent with LUTS including frequency at night, difficulty starting stream and moderately enlarged prostate seen on CT-AP on admission. Failed a trial without khan catheter, was discharged home with khan catheter in place. Commenced on tamsulosin 400micrograms for treatment of same. Urology office stated that patient must ring their office following discharge to arrange his follow up appointment. ?? Objective Assessment and Plan 1. Epidural phelgmon vs spinal epidural abscess at T9-T10 2. Hx of T9-T10 Discitis on daptomycin Presented with fever and worsening back pain.??Blood cultures remained negative throughout admission. Urine c+s negative. ESR + CRP normalised during hospital course. Stable from infection standpointas inpatient, ID reviewed during hospital stay. Neurosurgery consulted, patient has??no focal deficits. no neurosurgical interventions required at present ?? Recommendation: ??? Continue home daptomycin regimen as previously prescribed,??with close infectious disease follow up - Current analgesic regimen as following; tylenol scheduled, uptitrated gabapentin to 300mg BID + gabapentin 500mg QHS, lidopatches, scheduled+prn oxycodone. Pt instructed strictly on importance of??taking PRN pain medications offered to help with overnight pain which continues to be problematic. Monitor / alter as deemed necessary by PCP - We recommend an outpatient pain service or PM&R referral for expert management of pain in thesetting of complex, chronic osteomyelitis ?? 3. Right lower abd/suprapubic discomfort ?Constipation Due to constipation and T9/T10 distribution of??presumed neuropathic pain. Recommendation - continue extensive bowel regimen, pt notes some improvement after substantial bowel movements. - Patient should use over the counter regimens and manage as tolerated, with guidance of PCP. ? 4. Alcohol use disorder Patient states he drinks 5-6 beers daily for the last 50 years. Did not display any symptoms/signs of withdrawl during admission. 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 Recommendation -??Continue multivitamin,??pyridoxine, thiamine. - PCP to follow. ?? 5. 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 Fluid restriction started per renal recs with improvement of sodium. Recommendation - repeat labs in 1 week, PCP to follow results - outpatient renal follow up??as per their guidance - recommend to continue 1.5L per day fluid restriction ?? 6. Urinary retention longstanding history of LUTS, khan placed on admission due to urinary retention, continued to retain as inpatient. PSA within normal limits. Recommendation - started on tamsulosin as inpatient, monitor??/ alter as deemed necessary by PCP - patient for urology outpatient follow up for urinary retention and BPH, patient is to arrange this follow ?? 7. Chronic stable medical conditions: Recommendations: - Hypertension???recommend continue amlodipine 10 mg daily at present, monitor??/ alter as deemed necessary by PCP - CAD/hyperlipidemia???continue aspirin 81 mg, atorvastatin 40 mg at present, monitor??/ alter as deemed necessary by PCP - GERD??? continue home omeprazole 20mg??at present, monitor??/ alter as deemed necessary by PCP ? Patient seen and discussed with attending, ?? MAC Porter PGY-1, internal medicine-pediatrics?? Pager Number [phone] ?? Vital Signs?? Temperature: 97.6 DegF (01/31/23 08:53:00) Temperature Route: Oral (01/31/23 08:53:00) Pulse Rate: 81 bpm (01/31/23 08:53:00) Respiratory Rate: 18 br/min (01/31/23 08:53:00) Systolic Blood Pressure: 120 mm Hg (01/31/23 08:53:00) Diastolic Blood Pressure: 75 mm Hg (01/31/23 08:53:00) Blood pressure sites: Arm, right (01/31/23 08:53:00) Mean Arterial Pressure: 90 mm Hg (01/31/23 08:53:00) Pulse Pressure: 45 mm Hg (01/31/23 08:53:00) Oxygen Saturation:??87 %??Low (01/31/23 08:53:00) Mode of Delivery (Oxygen): Room air (01/31/23 08:53:00) Early Warning Score: 5 (01/31/23 08:53:53) ? . Physical Exam General Appearance: The patient was in no acute distress in the late morning, moving around the bedwithout limitation/grimacing/whincing Cardiovascular: RRR S1 and S2 heard. No murmurs, gallops, or rubs appreciated. Respiratory: ??Breath sounds clear to auscultation bilaterally. No wheezing. Good air movement throughout both lungs. GI: Soft. Nontender, slightly distended. BS+ (less sluggish compared to yesterday) Skin:??No erythema overlying hickmann Neuro: ??No slurred speech. ambulating without difficulty Psych: Alert and oriented. Consultants Nephrology - Hayden Infectious disease - Tom-Chris ?? Pending Results Add On Lab Order ordered on 01/29/2023 Patient Education Titles Back Pain (Acute or Chronic)?? Follow-Up Appointments Added Follow Up ?Time Frame ?Comments Shabana Newton MD?3 to 5 days Patient Instructions - You have to see your PCP within the next 7 days. This is for your pain medication to be prescribed and to make sure you have appointments with medical specialities you require outpatient follow up with. - You have to ring the [facility] urology service to schedule an appointment as soon as possible for management of your urinary catheter and enlarged prostate management - You need blood tests on february 05, this is to ensure you sodium levels?? and other electrolytes(the salts in the blood) which havr previously been low when you were in hospital,??are within the normal range - You are recommended to restrict your fluid intake to 1.5L per day - Ensure to use your as required pain medications when needed - We have recommended that you be referred to an outpatient pain clinic, or physical medicine &rehabilitation service for management of your pain in the outpatient setting Home Health Face to Face *Denotes mandatory black ?? *I certify that this patient is under my care and that I or an allowed non- physician working with me had a face to face encounter with the patient on this date:??01/31/2023 09:56 ?? *The encounter with the patient was in whole, or in part, for the following medical condition, which is the primary diagnosis(es) for home health care:??Back pain (M54.9) ? *Select the indications for the discipline/s that are being arranged for this patient. Nursing (select all that apply): [_] None [x] Medication management (reconciliation, teaching)?? [x] Chronic disease management?? [_] Wound care and treatment?? [_] Home safety evaluation [x] Administer SQ/IM/IV medications?? [x] Cath care?? [_] Drain care?? [_] Trach or GT care?? Other; Please check chem 7 on february 05, PCP to follow results Occupation Therapy (select all that apply): [_] None [_] ADL Management [_] Fall prevention training [_] Energy conservation [_] Cognitive training Other _ Physical Therapy (select all that apply): [_] None [_] Functional mobility training [x] Home exercise program to strengthen [_] Increase ROM?? [_] Falls prevention training [_] Home maintenance program for chronic disease Other _ Speech Therapy (select all that apply): [_] None [_] Swallow evaluation and training [_] Speech and language training [_] Cognitive training to process, organize, and/or recallinformation Other _ ? *Homebound due to (select all that apply): [x] Inability to leave home without assistance/supervision [_] Inability to ambulate without assistance [_] Pain [_] Decreased strength and endurance [_] Unsteady gait [_] Severe SOB and fatigue [_] Impaired transfers [_] Inability to negotiate stairs [_] Limited weight bearing [_] Mental status change? *Physician Signature:??Laura WATTS ?? *By signing this, I certify that I have personally evaluated the patient and agree with the findings and recommendations as documented above. ? Results Discharge Labs BLOOD COUNT & DIFF WBC 11.0 k/mm3 ()?? 01/29/2023 05:10 RBC 3.92 m/mm3 (Low)?? 01/29/2023 05:10 Hgb 10.9 Gm/dL (Low)?? 01/29/2023 05:10 Hct 32.7 % (Low)?? 01/29/2023 05:10 MCV 83.4 femtoliters ()?? 01/29/2023 05:10 MCH 27.8 pg ()?? 01/29/2023 05:10 MCHC 33.3 g/dL ()?? 01/29/2023 05:10 Platelet Count 288 k/mm3 ()?? 01/29/2023 05:10 RDW-SD 38.5 femtoliters ()?? 01/29/2023 05:10 MPV 9.7 femtoliters ()?? 01/29/2023 05:10 Nucleated RBC (Automated) 0.0 #/100 WBC'S ()?? 01/29/2023 05:10 Abs. NRBC 0.0 k/mm3 ()?? 01/29/2023 05:10 ?? CHEM GENERAL Sodium 133 mmol/L ()?? 01/29/2023 05:10 Potassium 4.8 mmol/L ()?? 01/29/2023 05:10 Chloride 95 mmol/L (Low)?? 01/29/2023 05:10 Bicarbonate Level 26 mmol/L ()?? 01/29/2023 05:10 Anion Gap 12 ()?? 01/29/2023 05:10 Glucose Level 88 mg/dL ()?? 01/29/2023 05:10 BUN 15 mg/dL ()?? 01/29/2023 05:10 Creatinine-Blood 0.8 mg/dL ()?? 01/29/2023 05:10 Estimated GFR Creatinine 95 ML/MIN/1.73 M2 ()?? 01/29/2023 05:10 Osmolality 260 mOs/kg (Low)?? 01/25/2023 01:19 Calcium 9.3 mg/dL ()?? 01/28/2023 07:46 Phosphorus 4.5 mg/dL ()?? 01/29/2023 05:10 Magnesium 1.5 mg/dL (Low)?? 01/29/2023 05:10 Protein, Total 5.7 Gm/dL (Low)?? 01/28/2023 07:46 Albumin 3.5 Gm/dL ()?? 01/28/2023 07:46 AG Ratio 1.8 ()?? 01/26/2023 04:20 Alkaline Phosphatase 69 units/L ()?? 01/28/2023 07:46 AST (SGOT) 14 units/L ()?? 01/28/2023 07:46 ALT (SGPT) 16 units/L ()?? 01/28/2023 07:46 Bilirubin, Total 0.2 mg/dL ()?? 01/28/2023 07:46 Bilirubin, Direct <0.2 mg/dL ()?? 01/28/2023 07:46 Bilirubin, Indirect Direct bilirubin is less than the measureable limit. Therefore, indirect mg/dL ()?? 01/28/2023 07:46 C-Reactive Protein 12.7 mg/dL (High)?? 01/24/2023 01:46 ? ENDOCRINE/TUMOR MARKER PSA 0.9 ng/mL ()?? 01/29/2023 05:10 TSH 0.84 uIU/mL ()?? 01/26/2023 04:20 Cortisol Level 15.4 ??g/dL ()?? 01/26/2023 04:20 ? HEME OTHER Sed Rate 49 mm/hr (High)?? 01/24/2023 01:46 ? UA/URINALYSIS Appear/Color, Urine YELLOW ()?? 01/28/2023 13:50 Specific Balsam, Urine 1.021 ()?? 01/28/2023 13:50 pH, Urine 7.5 ()?? 01/28/2023 13:50 Albumin, Urine 1+ (Abnormal)?? 01/28/2023 13:50 Glucose, Urine NEGATIVE ()?? 01/28/2023 13:50 Ketones, Urine NEGATIVE ()?? 01/28/2023 13:50 Bilirubin, Urine NEGATIVE ()?? 01/28/2023 13:50 Hemoglobin, Urine NEGATIVE ()?? 01/28/2023 13:50 Nitrite, Urine NEGATIVE ()?? 01/28/2023 13:50 Leukocyte, Urine NEGATIVE ()?? 01/28/2023 13:50 Urobilinogen NORMAL mg/dL ()?? 01/28/2023 13:50 WBC's, Urine 2 /HPF ()?? 01/28/2023 13:50 RBC's, Urine 2 /HPF ()?? 01/28/2023 13:50 Hold Urine Culture Testing available 48 hours from time of collection. ()?? 01/28/2023 13:50 ?? URINE OTHER Creatinine, Urine Random 99.4 mg/dL ()?? 01/25/2023 12:18 Sodium, Urine Random 112 mmol/L ()?? 01/25/2023 12:18 Osmolality, Urine Random 531 mOsm/kg ()?? 01/25/2023 12:18 Est Creatinine Clearance 83.02 mL/min ()?? 01/29/2023 06:12 ?? VIROLOGY COVID-19 PCR Specimen Source NASAL ()?? 01/22/2023 06:16 COVID-19 PCR Result NEGATIVE ()?? 01/22/2023 06:16 ? 60 minutes spent on discharge * Brianna Mckeon MD: PERFORM Event Display: Discharge/Transfer Note Hospital Authored Date: Attending Attestation:??I have seen and examined this patient on date of service. ??I have discussed the case and its management with the resident and agree with the findings and plan as documented in the resident???s note. * Bruna Webb LPN: MODIFY, PERFORM Event Display: Patient Education/Instruction Authored Date: Inpatient Adult Discharge Instructions [place] [id number] Name: LUIS ANGEL MIMS : 1950 Visit: 01/22/2023 06:18:00 Current Date: 01/31/2023 10:53 Account: [id number] Inpatient Adult Discharge Instructions We would like [...] and their families. Surveys are administered by [employer] ?? If further treatment with your primary care physician or another doctor is recommended, it is important for you to keep the appointment. Call your primary care physician or return to the Emergency Department immediately if your condition worsens, fails to improve, or new symptoms develop. If you need to find a doctor, you can call [facility] [employer] for a referral at [phone] or toll free at [phone]) or log in to [email or web address].. ?? You can view and manage your care through the patient portal or by using a health care claudio of your choosing. [employer] is a website that allows you to securely view your medical information including your hospital discharge summary, office visit summaries, medications and follow-up visits. You can also request appointments, renew medications, and request access to your medical information using a health care claudio of your choosing, or just ask a question. You can enroll at [email or web address] or register during your next office visit. You have been discharged from [facility], Patient Care Unit: D6A. If you have any questions regarding these instructions after you leave, please call us and we will be happy to assist you. [facility] Your Care Team Attending Physician Mike AUGUSTE, Brianna Consulting Providers Daniel AUGUSTE, Ben Barr MD, Geln Jimenez MD, Moody Belle Discharging Providers Quirino AUGUSTE, Laura Reason for Admission back pain/urinary retention Your Diagnosis Back pain Tests Performed Below is a partial list of the tests performed during your hospitalization. You may have had other tests and procedures not included in this list. Please discuss all test results with your provider. Basic Metabolic Panel BUN CBC Comprehensive Metabolic Panel Cortisol Level COVID-19 (2019 Novel Coronavirus) PCR Creatinine CRP ESR Glucose Level HEPATIC FUNCTION PANEL Lytes Magnesium Level OSMOLALITY, SERUM Phosphorus Level PSA TSH Urinalysis w/hold for Urine Culture Urine Creatinine Urine Osmolality Urine Sodium MRI Thoracic Spine W+W/O Contrast XR Abdomen AP Primary Care Provider Shabana Newton MD Advance Directive Health Care Proxy on File Yes - Health Care Proxy Discharge Vitals Temperature: 97.6 DegF Height: 176 cm Pulse Rate: 81 bpm Weight: 72.4 kg Respiratory Rate: 16 br/min Body Mass Index: 23.37 kg/m2 Respiratory Rate: 16 br/min Body surface area: 1.88 Systolic Blood Pressure: 120 mm Hg ?? Diastolic Blood Pressure: 75 mm Hg ?? Oxygen Saturation: 98 % ?? Studies Pending All tests and labs ordered during this hospital stay have been completed unless listed below. Please discuss all pending results with your provider listed above in these instructions. ?? Add On Lab Order What to do next Instructions From Your Doctor - You have to see your PCP within the next 7 days. This is for your pain medication to be prescribed and to make sure you have appointments with medical specialities you require outpatient follow up with. - You are scheduled for review with the infectious disease team on february 01, we recommend you attend - You have to ring the [facility] urology service to schedule an appointment as soon as possible for management of your urinary catheter and enlarged prostate management - You need blood tests on february 05, this is to ensure you sodium levels?? and other electrolytes(the salts in the blood) which havr previously been low when you were in hospital,??are within the normal range - You are recommended to restrict your fluid intake to 1.5L per day - Ensure to use your as required pain medications when needed - We have recommended that you be referred to an outpatient pain clinic, or physical medicine &rehabilitation service for management of your pain in the outpatient setting Discharge Orders Diet:??Cardiac diet Activity:??Ambulate with assistance 3 times a day unless otherwise specified Code Status:?? Full Resuscitation Scheduled Follow-Up Appointments 2022 10:30 AM EDT ?? With: Dante PARRISH, Concetta Baker Where: [facility] [address] [place] [address]- Status: Pending Sunday 8:20 AM EDT ?? With: Shabana Newton MD Where: Primary Care [address] [address]- Status: Pending Sunday 7:00 AM EDT ?? Where: [facility] [address] [place] [address]- Status: Pending You Need to Schedule the Following Appointments Follow Up with??Shabana Newton MD When:??Within 3 to 5 days Where: [address] [place] [address] [place] [address]- Discharge Medications LUIS ANGEL MIMS :1950 Visit Date:01/22/2023 Medications: Please continue your medications until treatment is completed or stopped by your provider. Medications not listed below should be discontinued. Discuss any questions related to medications with your provider. What How Much When Instructions Next Dose New Acetaminophen (acetaminophen 325 mg oral tablet) 650 Milligram Oral 4 times a day 9am,1pm,5pm,9pm 8.23@1pm New Bisacodyl (bisacodyl 10 mg rectal suppository) 1 suppository(ies) Per rectum Daily as needed for Constipation hold for loose stools ?? Printed Prescription New Docusate-Senna (docusate-senna 50 mg-8.6 mg oral capsule) 1 capsule Oral Twice a day 9am/9pm Duration: 30 Days 1 capsule 2 times a day as needed for management of constipation. hold for loose stools. further refills-contact pcp or purchase over the counter. ?? [facility] 01.31.23@9pm New Folic Acid (folic acid 1 mg oral tablet) 1 Milligram Oral Daily in am 1 tablet daily for nutrition. refills-contact pcp or purchase over the counter. ?? Pickup at [facility] 3 02.01.23@9am New Gabapentin (gabapentin 100 mg oral capsule) 2 capsule Oral Daily at Bedtime Duration: 14 Days Take 2 capsules of 100mg along with 1 capsule of 300mg for total nighttime dose of 500mg of gabapentin. further refills - contact pcp ?? Pickup at [place] [address] 01.31.23@bedtime New Gabapentin (gabapentin 300 mg oral capsule) 1 capsule Oral 3 times a day 9am,3pm & bedtime Duration: 14 Days 1 capsule in the morning, 1 capsule in the afternoon. For bedtime take 1 capsule and 2 capsules of 100mg for total bedtime dose of 500mg. Contact PCP for refills. ?? Pickup at [place] [address] 01.31.23@3pm New Lidocaine Topical (lidocaine 5% topical film) See instructions Apply to right rib area where pain is, daily for 12 hours. remove patches after 12 hours. please purchase 4% or 5% topical films over the counter. ?? Pickup at [place] [address] 02.01.23@9am New Melatonin (melatonin 3 mg oral tablet) 3 Milligram Oral Daily at Bedtime as needed for Insomnia 01.31.23@7pm as needed New Pyridoxine (pyridoxine 50 mg oral tablet) 50 Milligram Oral Daily in am 1 tablet daily for nutrition. Contact pcp or purchase over the counter for further refills. ?? Pickup at [place] [address] 02.01.23@9am New Simethicone (simethicone 80 mg oral tablet, chewable) 80 Milligram Chew 3 times a day as needed for Gas Duration: 14 Days 1 tablet chewable up to 3 times a day as needed for gas pain. refills-contact pcp or purchase over the counter. ?? Pickup at [facility] 3 As needed New Tamsulosin (Flomax 0.4 mg oral capsule) 0.4 Milligram Oral Daily in am 1 capsule daily 30 minutes after the same meal for management of urinary retention. follow up with pcp and call [facility] urology to schedule outpatient appt for further mgmt and refills. ?? Pickup at [place] [address] 02.01.23@9am New Thiamine (thiamine 100 mg oral tablet) 100 Milligram Oral Daily in am 1 tablet daily for nutrition. refills-contact pcp or purchase over the counter. ?? Pickup at [place] [address] 02.01.23@9am Changed Amlodipine (amLODIPine 10 mg oral tablet) 10 Milligram Oral Daily in am 02.01.239am Changed Aspirin (aspirin 81 mg oral delayed release tablet) 81 Milligram Oral Daily in am 02.01.239am Changed Atorvastatin (atorvastatin 40 mg oral tablet) 40 Milligram Oral Daily in am 02.01.239am Changed Multivitamin (Multivitamin Tablet) 1 tab(s) Oral Daily in am 02.01.239am Changed Oxycodone (oxyCODONE 10 mg oral tablet) 1 tab(s) Oral Every 6 hours 6am,12pm,6pm,12am Duration: 3 Days hold for sedation/ sleepiness, altered mental status, confusion ?? Pickup at [facility] 3 01.31.23@6pm Changed Oxycodone (oxyCODONE 5 mg oral tablet) 5 Milligram Oral Every 12 hours as needed for Pain , Severe Duration: 3 Days hold for sedation/ sleepiness, altered mental status, confusion. Please ensure at least 2 hrs from last dose or next dose before administered. ?? Pickup at [facility] 3 as needed Changed Polyethylene Glycol 3350 (MiraLax oral powder for reconstitution) 17 gram Oral Daily in am 17gm daily for management of constipation. dissolve in water before taking. hold for loose stools. further refills-contact pcp or purchase over the counter. ?? Pickup at [facility] 3 02.01.239am Unchanged Cyanocobalamin (Vitamin B12 1000 mcg oral tablet) 1 tab(s) Oral Daily in am Printed Prescription 02.01.239am Unchanged Daptomycin (DAPTOmycin 500 mg intravenous injection) 600 Milligram Intravenous Infusion Every 24 hours 12noon Duration: 22 Days completion date 02/09 ?? 02.01.23@12 noon Unchanged Multivitamin With Minerals (multivitamin with minerals Multiple Vitamins with Minerals oral tablet) 1 tab(s) Oral Daily in am Printed Prescription 02.01.23@9am Unchanged Omeprazole (omeprazole 20 mg oral enteric coated capsule) 1 capsule Oral Daily in am 02.01.23@9am Pharmacy Information [facility] 3: [address], [place] [id number] [phone] ?? What How Much When Comments Stop Taking Celecoxib (celecoxib 200 mg oral capsule) 1 capsule Oral Twice a day Duration: 30 Days Stop Taking Clobetasol Topical (Impoyz 0.025% topical cream) 1 claudio Topically Twice a day Stop Taking Miscellaneous Rx (Epiderm) Topically Stop Taking Senna (Senna 8.6 mg oral tablet) 1 tab(s) Oral Daily Test Results Below is a partial list of the most recent Laboratory test results done prior to this discharge. You may have had other tests and procedures not included in this list. Please discuss all test resultswith your provider. Est Creatinine Clearance - 83.02 mL/min (01/29/2023) Basic Metabolic Panel (01/28/2023) ???Sodium - 135 mmol/L???Potassium - 4.5 mmol/L???Chloride - 96 mmol/L???Bicarbonate Level - 27 mmol/L???Anion Gap - 12???Glucose Level - 98 mg/dL???BUN - 18 mg/dL???Creatinine-Blood - 0.9 mg/dL???Estimated GFR Creatinine - 91 ML/MIN/1.73 M2???Calcium - 9.3 mg/dL BUN (01/29/2023) ???BUN - 15 mg/dL CBC (01/29/2023) ???WBC - 11.0 k/mm3???RBC - 3.92 m/mm3???Hgb - 10.9 Gm/dL???Hct - 32.7 %???MCV - 83.4 femtoliters???MCH - 27.8 pg???MCHC - 33.3 g/dL???Platelet Count - 288 k/mm3???RDW-SD - 38.5 femtoliters???MPV - 9.7 femtoliters???Nucleated RBC (Automated) - 0.0 #/100 WBC'S???Abs. NRBC - 0.0 k/mm3 Comprehensive Metabolic Panel (01/26/2023) ???Sodium - 134 mmol/L???Potassium - 4.3 mmol/L???Chloride - 95 mmol/L???Bicarbonate Level - 27 mmol/L???Anion Gap - 12???Glucose Level - 121 mg/dL???BUN - 31 mg/dL???Creatinine-Blood - 0.9 mg/dL???Estimated GFR Creatinine - 91 ML/MIN/1.73 M2???Calcium - 9.4 mg/dL???Protein, Total - 5.9 Gm/dL???Albu min - 3.8 Gm/dL???AG Ratio - 1.8???Alkaline Phosphatase - 70 units/L???AST (SGOT) - 13 units/L???ALT (SGPT) - 15 units/L???Bilirubin, Total - 0.2 mg/dL Cortisol Level (01/26/2023) ???Cortisol Level - 15.4 ??g/dL COVID-19 (2019 Novel Coronavirus) PCR (01/22/2023) ???COVID-19 PCR Specimen Source - NASAL???COVID-19 PCR Result - NEGATIVE Creatinine (01/29/2023) ???Creatinine-Blood - 0.8 mg/dL???Estimated GFR Creatinine - 95 ML/MIN/1.73 M2 CRP (01/24/2023) ???C-Reactive Protein - 12.7 mg/dL ESR (01/24/2023) ???Sed Rate - 49 mm/hr Glucose Level (01/29/2023) ???Glucose Level - 88 mg/dL HEPATIC FUNCTION PANEL (01/28/2023) ???Protein, Total - 5.7 Gm/dL???Albumin - 3.5 Gm/dL???Alkaline Phosphatase - 69 units/L???AST (SGOT) - 14 units/L? ?ALT (SGPT) - 16 units/L? ?Bilirubin, Total - 0.2 mg/dL? ?Bilirubin, Direct - <0.2 mg/dL???Bilirubin, Indirect - Direct bilirubin is less than the measureable limit. Therefore, indirect Lytes (01/29/2023) ???Sodium - 133 mmol/L???Potassium - 4.8 mmol/L???Chloride - 95 mmol/L???Bicarbonate Level - 26 mmol/L???Anion Gap - 12 Magnesium Level (01/29/2023) ???Magnesium - 1.5 mg/dL OSMOLALITY, SERUM (01/25/2023) ???Osmolality - 260 mOs/kg Phosphorus Level (01/29/2023) ???Phosphorus - 4.5 mg/dL PSA (01/29/2023) ???PSA - 0.9 ng/mL TSH (01/26/2023) ???TSH - 0.84 uIU/mL Urinalysis w/hold for Urine Culture (01/28/2023) ???Appear/Color, Urine - YELLOW???Specific Balsam, Urine - 1.021???pH, Urine - 7.5???Albumin, Urine - 1+???Glucose, Urine - NEGATIVE???Ketones, Urine - NEGATIVE???Bilirubin, Urine - NEGATIVE???Hemoglobin, Urine - NEGATIVE???Nitrite, Urine - NEGATIVE???Leukocyte, Urine - NEGATIVE???Urobilinogen - NORMAL???WBC's, Urine - 2 /HPF???RBC's, Urine - 2 /HPF???Hold Urine Culture - Testing available 48 hours from time of collection. Urine Creatinine (01/25/2023) ???Creatinine, Urine Random - 99.4 mg/dL Urine Osmolality (01/25/2023) ???Osmolality, Urine Random - 531 mOsm/kg Urine Sodium (01/25/2023) ???Sodium, Urine Random - 112 mmol/L Allergies (NKA means No Known Allergies) lisinopril??(Nausea) penicillin Problems Active Problems??(19) Borderline anemia?? Constipation?? Coronary artery calcification seen on CT scan?? Coronary artery disease?? Diskitis?? Dyshidrotic eczema hands?? Dyspnea on exertion?? Erectile dysfunction?? Esophagitis?? Family history of prostate cancer brother?? Hypercholesterolemia?? Hypertension?? Intractable back pain?? Moderate drinker of alcohol?? Nasal congestion?? Osteoarthritis of right knee?? Osteomyelitis?? Thoracic aortic aneurysm?? Tubular adenoma?? Education Materials Below is the list of Educational Leaflet Providered with your Discharge Instructions. Back Pain (Acute or Chronic)?? Valuables and Belongings I fully understand and agree that [facility] accepts no responsibility for all my personal [...] to send valuables and belongings home. ?? Review of Valuable and Belonging List: With patient Date for Pt to Sign Valuables/Belongings: 01/22/23 18:13:00 ?? Other Discharge Information ? Pulmonary Rehab Status?? Pulmonary Rehab Discharge Status?? Respiratory Rate: 16 br/min Respiratory Rate: 16 br/min ? Common Emergency Awareness Tips IS [...] are strongly encouraged to quit. Please call [employer] at [phone] or [phone] ([phone]) or log in to [email or web address] for referrals to smoking cessation programs. ?? 621 Suicide & Crisis Lifeline is available 01/01 if you or someone you know needs to find a reason to keep living. By calling 218 you'll be connected to a skilled, trained counselor at a crisis center in your area. INPATIENT DISCHARGE INSTRUCTIONS SIGNATURE PAGE LUIS ANGEL MIMS Location:[facility] Registration Date and Time:01/22/2023 06:18 EDT Primary Care Physician: Shabana Newton MD, Attending Physician: Brianna Mckeon MD, I LUIS ANGEL MIMS, have received the above patient education materials/instructions and have verbalized understanding. If ambulance or transport services are being used I further acknowledge being given a choice of service. ?? If you need to contact me, please call me at this number: . Patient/Corporate Compliance Director Name: Patient/Corporate Compliance Director Signature: Relationship to Patient: Witness Name/Signature: Date: * Laura Win MD: PERFORM Event Display: Patient Education Leaflets Authored Date: [id number] Back Pain (Acute or Chronic) ?? [id number] Back Pain (Acute or Chronic) Back pain is one of the most common problems. The good news is that most people feel better in 1 to2 weeks, and most of the rest in 1 to 2 months. Most people can remain active. People who have pain??describe it differently???not??everyone is the same. ??? The pain can be sharp, stabbing, shooting, aching, cramping or burning. ??? Movement, standing,bending, lifting, sitting, or walking may worsen pain. ??? It can be limited to one spot or area, or it can be more generalized. ??? It can spread upwards, to the front, or go down your arms or legs (sciatica). ??? It can cause muscle spasm. Most of the time, mechanical problems with the muscles??or spine cause the pain. Mechanical problems??are usually caused by an injury to the muscles or ligaments. Illness can cause back pain, but it's usually not caused by a serious illness. Mechanical problems include:? Physical activity such as sports, exercise, work, or normal activity ??? Overexertion, lifting,pushing, pulling incorrectly or too aggressively ??? Sudden twisting, bending, or stretching from an accident, or accidental movement ??? Poor posture ??? Stretching or moving wrong, without noticingpain at the time ??? Poor coordination, lack of regular exercise (check with your doctor about this) ??? Spinal disc disease or arthritis ??? Stress Pain can also be related to , or illness such as appendicitis, bladder or kidney infections, kidney stones, and pelvic infections. Acute back pain usually gets better in??1 to 2 weeks. Back pain related to disk disease, arthritis in the spinal joints, or narrowing of the spinal canal (spinal stenosis) can become chronic and lastfor months or years. Unless you had a physical injury such as a car accident or fall, X-rays are usually not needed for the first assessment of back pain. If pain continues and does not respond to medical treatment, you may need X-rays and other tests. Home care Try this home care advice: ??? When in bed, try??to find a position of comfort. A firm mattress is best. Try lying flat on your back with pillows under your knees. You can also try lying on your side with your knees bent up toward your chest and a pillow between your knees. ??? At first, don't try to stretch out the sore spots. If there is a strain, it's not like the good soreness you get after exercising without an injury. In this case, stretching may make it worse. ??? Don't sit for long periods, as in a long car ride or during other??travel. This puts more stress on the lower back than standing or walking. ??? During the first 24 to 72 hours after an acute injury or flare up of chronic back pain, apply an ice pack to the painful area for 20 minutes and then remove it for 20 minutes. Do this over a period of 60 to 90 minutes or several times a day. This will reduce swelling and pain. Wrap the ice pack in a thintowel or plastic to protect your skin. ??? You can start with ice, then switch to heat. Heat (hot shower, hot bath, or heating pad) reduces pain and works well for muscle spasms. Heat can be applied to the painful area for 20 minutes then remove it for 20 minutes. Do this over a period of 60 to 90 minutes or several times a day. Don't sleep on a heating pad. It can lead to skin rocha or tissue damage. ??? You can alternate ice and heat therapy. Talk with your doctor about??the best treatment for your back pain. ??? Therapeutic massage can help relax the back muscles without stretching them. ??? Be aware of safe lifting methods. Don't lift anything without stretching first. Medicines Talk to your doctor before using medicine, especially if you have other medical problems or are taking other medicines. ??? You may use [id number] medicine as directed on the bottle to control pain, unless another pain medicine was prescribed. Talk with your healthcare provider before using these medicines if you have chronic conditions such as diabetes, liver or kidney disease, stomach ulcers, or digestive bleeding. Also talk with your provider if you take blood thinners. ??? Be careful if you are given a prescription medicines, narcotics, or medicine for muscle spasms. They can cause drowsiness, affect your coordination, reflexes, and judgment. Don't drive or operate heavy machinery. ?? Follow-up care Follow up with your healthcare provider, or as advised.?? If X-rays were taken, you will be told of any new findings that may affect your care. ?? Call 911 Call 911 if any of the following occur: ??? Trouble breathing ??? Confusion ??? Very drowsy or trouble awakening ??? Fainting or loss of consciousness ??? Rapid or very slow heart rate ??? Loss of bowel or bladder control ?? When to seek medical advice Call your healthcare provider right away if any of these occur:? Pain gets worse or spreads toyour legs ??? Your bowel or bladder control changes ??? Fever ??? Blood in your urine ??? Weakness or numbness in one or both legs ??? Numbness in the groin or genital area ?? Last Reviewed Date: 2021 ?? The [employer]. All rights reserved. This information is not intended as a substitute for professional medical care. Always follow your healthcare professional's instructions. ?? Patient Care team information Care Team Personnel Name: Fadmuo Aguilera RN Position: [facility] RN Member Role: Primary Care Nurse Name: Mookie Jacobson MD Position: [facility] Renal MD Member Role: Lifetime Consulting Physician Address: Address: [address] [place] [address], [address] [place] [address]- Name: Nahed Crain RN Position: [facility] SN RN Member Role: Primary Care Nurse Name: Lex Tillman RN Position: [facility] RN Member Role: Primary Care Nurse Name: Thalia Murcia RN Position: [facility] RN Member Role: Primary Care Nurse Name: Shabana Newton MD Position: [facility] Physician - Primary Care Member Role: PCP Address: Address: [address] [place] [address] [place] [address]- Name: Giorgi Schuster RN Position: S RN Member Role: Primary Care Nurse Name: Jayashree Campo RN Position: [facility] RN Supv Member Role: Primary [...] Care Nurse Name: Bobby Quintanilla RN Position: [facility] RN Member Role: Primary Care Nurse Name: Kg Blake MD Position: [facility] Renal MD Member Role: Lifetime Consulting Physician Address: Address: [address] [place] [address] [address] [facility], [place] [address]- Name: Fiorella Velazquez RN Position: [facility] RN Supv Member Role: Primary Care Nurse Name: Tena Holden RN Position: [facility] RN Member Role: Primary Care Nurse Name: Shon Fleming MD Position: [facility] Renal MD Member Role: Lifetime Consulting Physician Address: Address: [address] [place] [address] [facility] [place] [address]- Name: Katiuska Benito LPN Position: [facility] RN Member Role: Primary Care Nurse Name: Yennifer ORR Attending Position: [facility] ED Medicine MD Name: Radha Brunner Position: [facility] ED OA Charge Member Role: ED Associate Name: Olivia Beck Position: [facility] ED TA [facility] Member Role: Patient Care Provider Name: Lyudmila Martinez RN Position: [facility] ED RN W/OE and Tasks Member Role: Patient Care Provider Care Team Related Persons Name: MARK MIMS Address: home [address] [place] [address]
--- OUTSIDE RECORDS SUMMARY | 2023-05-28 20:42 | XMS_ITS | Continuity of Care Document ---
Author Name Unknown Organization [facility] Address [address] [place] [address]- Care Team Providers Care Rubber Goods Tester Name Role Phone Shabana Newton MD Primary Care Physician Encounter [facility] Date(s): 02/08/23 - 03/10/23 [facility] [address] [place] [address]- Allergies, Adverse Reactions, Alerts Substance Reaction Severity [...] 03/07/23 20:14:00 EDT, Route to Pharmacy Electronically, [facility] # [facility], Partial fill upon patient [...] 03/29/23 11:08:00 EDT, 03/01/23 11:08:00 EDT, Capsule, [facility], Partial fill upon patient req... Start Date: 03/01/23 Stop Date: 03/29/23 Status: Ordered Flomax 0.4 mg oral capsule 0.4 mg, By Mouth, Daily, 1 capsule daily 30 minutes after the same meal for management of urinary retention. follow up with pcp and call [facility] to schedule outpatient appt for furthermgmt and refills., # 30 each, Refills 11, Tot. Re... Start Date: 02/28/23 Stop Date: 02/23/24 Status: Ordered gabapentin 300 mg oral capsule See Instructions, 1 capsule By Mouth morning and noon and 2 capsules at bedtime, # 120 each, Refills 5, Tot. Refills 5, Maintenance, 02/09/23 8:50:00 EDT, Instructions Replace Required Details, [facility] Electron[facility], [facility],... Start Date: 02/09/23 Status: [...] 3 Refills, Maintenance, 10/20/22 12:58:00 EDT, ECCapsule, [facility] # 302, 178, cm, 10/20/22 6:36:00 EDT, Height Start Date: 10/20/22 Status: Ordered oxyCODONE 10 mg oral tablet 1 tablet = 10 mg, By Mouth, Every 8 hours, hold for sedation/sleepiness, altered mental status, confusion, # 42 tablet, 0 Refills, Maintenance, 02/09/23 8:52:00 EDT, Tablet, [facility] # 302, Partial fill upon patient request if the prescription... Start Date: 02/09/23 Stop Date: 02/23/23 Status: Ordered Vitamin B12 1000 mcg oral [...] Care Nurse Name: Mookie Jacobson MD Position: [facility] Renal Member Role: Lifetime Consulting Physician Address: Address: [address] [place] [address], [address] [place] [address] Name: Nahed Crain RN Position: [facility] RN Member Role: Primary Care Nurse Name: Lex Tillman RN Position: S RN Member Role: Primary Care Nurse Name: Thalia Murcia RN Position: S RN Member Role: Primary Care Nurse Name: Shabana Newton MD Position: [facility] Physician - Primary Care Member Role: PCP Address: Address: [address] [facility] [place] [address]- [place] Name: Giorgi Schuster RN Position: S RN Member Role: Primary Care Nurse Name: Jayashree Campo RN Position: S RN Supv Member Role: Primary Care Nurse Name: Christi Feliciano Position: S RN Member Role: Primary Care Nurse Name: Daniel Dumont DO Position: [facility] Renal MD Member Role: Lifetime Consulting Physician Address: Address: [address] [place] [address] [address] [facility] [place] [place] [address]- Name: Tamra Perez RN Position: S RN Member Role: Primary Care Nurse Name: Haley Tilley RN Position: S RN Member Role: Primary Care Nurse Name: Ruchi Irwin RN Position: [facility] RN Member Role: Primary Care Nurse Name: Bobby Quintanilla RN Position: S RN Member Role: Primary Care Nurse Name: Kg Blake MD Position: [facility] Renal MD Member Role: Lifetime Consulting Physician Address: Address: [address] [place] [address] [address] [facility] [place] [address]- [place] Name: Tena Holden RN Position: [facility] RN Member Role: Primary Care Nurse Name: Shon Fleming MD Position: [facility] Renal MD Member Role: Lifetime Consulting Physician Address: Address: [address] [place] [address] [facility] [place] [address]- [place] Name: Katiuska Benito LPN Position: S RN Member Role: Primary Care Nurse Care Team Related Persons Name: MARK MIMS Address: home [address] [place] [address] Name: ERICA LOUISE
--- OUTSIDE RECORDS SUMMARY | 2023-05-28 20:42 | XMS_ITS | Continuity of Care Document ---
Author Name Unknown Organization [facility] Address [address] [place] [address]- Care Team Providers Care Ward Assistant Name Role Phone Shabana Newton MD Primary Care Physician Encounter [facility] Date(s): 11/07/22 - 12/07/22 [facility] [address] [place] [id number] Attending Physician: AdmtrChetan Admitting Physician: Admtr, ArMary Anne Referring Physician: Admtr, Ar8 Allergies, Adverse Reactions, [...] 05/15/22 9:40:00 EST, Route to Pharmacy Electronically, [facility], 177.8, cm, 05/15/22 9:07:00 EST, Height Start Date: 05/15/22 Status: Ordered aspirin 81 mg oral delayed release tablet 81 mg, 1, tablet, By Mouth, Daily, # 30 tablet, Refills 11, Maintenance, 04/23/20 14:26:00 EST, Partial fill upon patient request Start Date: 04/23/20 Stop Date: 12/13/20 Status: Ordered atorvastatin 40 mg oral tablet 1 tablet = 40 mg, By Mouth, Daily, replaces Simvastatin, # 90 tablet, 3 Refills, Maintenance, 05/15/22 9:40:00 EST, Tablet, [facility] # 302, Partial fill upon patient request, 177.8, cm, 05/15/22 9:07:00 EST, Height Start Date: 05/15/22 Stop Date: 09/12/22 Status: Ordered bisoprolol-hydrochlorothiazide 10 mg-6.25 mg oral tablet 1 tablet, By Mouth, Daily, # 90 tablet, 3 Refills, Maintenance, 05/15/22 9:40:00 EST, Tablet, [facility] # 302, 1 tablet By Mouth Daily, 177.8, cm, 05/15/22 9:07:00 EST, Height Start Date: 05/15/22 Status: Ordered ibuprofen 800 mg oral tablet 1, tablet, By Mouth, 3 times a day, PRN, # 42 tablet, Refills 0, Maintenance, NEEDED FOR MODERATE PAIN FOR, 11/22/22 14:25:00 EDT, Route to Pharmacy Electronically, [facility] #[id number], 175, cm, 11/17/22 9:46:00 EDT, Height, 79.5, [...] 3 Refills, Maintenance, 10/20/22 12:58:00 EDT, ECCapsule, [facility] # 302, 178, cm, 10/20/22 [...] Team Personnel Name: Nahed Crain RN Position: [facility] RN Member Role: Primary Care Nurse Name: Lex Tillman RN Position: S RN Member Role: Primary Care Nurse Name: Shabana Newton MD Position: [facility] Physician - Primary Care Member Role: PCP Address: Address: [address] [place] [address] [place] [address]- Name: Tamra Perez RN Position: S RN Member Role: Primary Care Nurse Name: Wu Lake RN Position: S RN Member Role: Primary Care Nurse Name: Bobby Quintanilla RN Position: S RN Member Role: Primary Care Nurse Care Team Related Persons Name: FELICITA MARK Address: [address] [address]
--- OUTSIDE RECORDS SUMMARY | 2023-05-28 20:42 | XMS_ITS | Continuity of Care Document ---
Author Name Unknown Organization [facility] ter Address [address] [place] [address]- Care Team Providers Care Outside Sales Manager Name Role Phone Shabana Newton MD Primary Care Physician Encounter [facility] Date(s): 01/16/23 - 01/16/[address] [address]- Discharge Disposition: A-D/C Walkout Attending Physician: Not on Staff, Attending MD [...] 05/15/22 9:40:00 EST, Route to Pharmacy Electronically, [facility] # 302, 177.8, cm, 05/15/22 9:07:00 [...] 3 Refills, Maintenance, 05/15/22 9:40:00 EST, Tablet, [facility] # [facility], Partial fill upon patient request, 177.8, cm, 05/15/22 9:07:00 EST, Height Start Date: 05/15/22 Stop Date: 09/12/22 Status: Ordered MiraLax oral powder for reconstitution = 17 Gm, By Mouth, Daily, dissolve in water before taking, # 255 Gm, 0 Refills, Maintenance, 01/11/23 17:01:00 EDT, REC Powder, [facility], Partial fill upon patient request [...] 3 Refills, Maintenance, 10/20/22 12:58:00 EDT, ECCapsule, [facility], 178, cm, 10/20/22 6:36:00 EDT, Height Start Date: 10/20/22 Status: Ordered oxyCODONE 5 mg oral tablet 10 mg, By Mouth, Every 6 hours, PRN, # 60 tablet, Refills 0, Tot. Refills 0, Acute 02/11/23 8:00:00EDT, Pain , Moderate, 01/11/23 16:59:00 EDT, Route to Pharmacy Electronically, [facility], Partial fill upon patient request if the presc... Start Date: 01/11/23 Stop Date: 02/11/23 Status: Ordered Senna 8.6 mg oral tablet 8.6 mg, 1, tablet, By Mouth, Daily, # 50 tablet, Refills 0, Tot. Refills 0, Maintenance, 01/11/23 17:01:00 EDT, Route to Pharmacy Electronically, [facility] Tablet, Partial fill upon patient [...] 1 Confirmed 05/09/12 Active 1tubular adenoma in 2017, will need repeat screening colonoscopy in 2022 Vital Signs Most recent to oldest [Reference Range]: 1 Oxygen Saturation [94-100 %] 97 % (01/16/23 8:10 PM) Pulse Rate [55-90 bpm] 101 bpm *H* (01/16/23 8:10 PM) Blood Pressure [90-138/55-84 mm Hg] 143/ 112mm Hg *H* (01/16/23 8:10 PM) Respiratory Rate [16-30 br/min] 17 br/mi n (01/16/23 8:10 PM) Temperature [96.8-100.4 DegF] 97.6 DegF (01/16/23 8:10 PM) Mode of Delivery (Oxygen) Room air (01/16/23 8:10 PM) Blood pressure sites Arm, left (01/16/23 8:10 PM) Temperature Route Oral (01/16/23 8:10 PM) Social History Social History Type Response Smoking Status Former smoker; Type: Cigarettes; Started at age: 9; Stopped at age: 29; entered on: 08/25/14 Sex Patient Care team information Care Team Personnel Name: Kavon AUGUSTE, Mookie Alvarado Position: [facility] Renal MD Member Role: Lifetime Consulting Physician Address: Address: [address] [place] [address], [address] [place] [address]- [place] Name: Nahed Crain RN Position: [facility] SN RN Member Role: Primary Care Nurse Name: Lex Tillman RN Position: S RN Member Role: Primary Care Nurse Name: Shabana Newton MD Position: [facility] Physician - Primary Care Member Role: PCP Address: Address: [address] [place] [address]- Name: Christi Feliciano Position: S RN Member Role: Primary Care Nurse Name: Tamra Perez RN Position: S RN Member Role: Primary Care Nurse Name: Wu Lake RN Position: S RN Member Role: Primary Care Nurse Name: Bobby Quintanilla RN Position: [facility] RN Member Role: Primary Care Nurse Name: Shon Fleming MD Position: [facility] Renal MD Member Role: Lifetime Consulting Physician Address: Address: [address] [place] [address] [facility] [place] [address]- Care Team Related Persons Name: MARK MIMS Address: home [address] [place] [id number]
--- OUTSIDE RECORDS SUMMARY | 2023-05-28 20:42 | XMS_ITS | Continuity of Care Document ---
Author Name Unknown Organization [facility] ter Address [address] [place] [address]- Care Team Providers Care Cleaner Laboratory Equipment Name Role Phone Shabana Newton MD Primary Care Physician [phone] [place] [facility] [place](s[place] 10/22/22 - 10/22/[address] [address]- Discharge Disposition: A-D/C Home Attending Physician: Vanna Alicia MD Admitting Physician: Vanna Alicia MD Referring Physician: Not on Staff, Referring [...] 05/15/22 9:40:00 EST, Route to Pharmacy Electronically, [facility] # 302, 177.8, cm, 05/15/22 9:07:00 [...] 3 Refills, Maintenance, 05/15/22 9:40:00 EST, Tablet, [facility] # 302, Partial fill upon patient request, 177.8, cm, 05/15/22 9:07:00 EST, Height Start Date: 05/15/22 Stop Date: 09/12/22 Status: Ordered bisoprolol-hydrochlorothiazide 10 mg-6.25 mg oral tablet 1 tablet, By Mouth, Daily, # 90 tablet, 3 Refills, Maintenance, 05/15/22 9:40:00 EST, Tablet, [facility] # 302, 1 tablet By Mouth Daily, 177.8, cm, 05/15/22 9:07:00 EST, Height Start Date: 05/15/22 Status: Ordered fluconazole 200 mg oral tablet 1 tablet = 200 mg, By Mouth, Daily, for 12 days, # 12 tablet, 0 Refills, Acute 11/01/22 12:56:00 EDT, 10/20/22 12:56:00 EDT, Tablet, [facility] # 302, Partial fill upon [...] 3 Refills, Maintenance, 10/20/22 12:58:00 EDT, ECCapsule, [facility] # 302, 178, cm, 10/20/22 6:36:00 EDT, Height Start Date: 10/20/22 Status: Ordered Super B Complex 1 tablet, By Mouth, Daily, 0 Refills, Maintenance, 10/09/18 11:41:24 EDT Start Date: 10/09/18 Status: Ordered triamcinolone 0.5% topical cream See Instructions, Topically 2 times a day apply a thin film, # 60 Gm, 0 Refills, Acute 10/28/22 9:00:00 EDT, 10/20/22 12:56:00 EDT, Cream, [facility] # 302, Partial fill upon patient [...] to oldest [Reference Range]: 1 2 3 Oxygen Saturation [94-100 %] 100 % (10/22/22 3:10 PM) 98 % (10/22/22 11:43 AM) 94 % (10/22/22 11:14 AM) Pulse Rate [55-90 bpm] 69 bpm (10/22/22 3:10 PM) 77 bpm (10/22/22 11:43 AM) 74 bpm (10/22/22 11:14 AM) Blood Pressure [90-138/55-84 mm Hg] 119/62mm Hg (10/22/22 3:10 PM) 106/56mm Hg (10/22/22 11:43 AM) 129/63mm Hg (10/22/22 11:14 AM) Respiratory Rate [16-30 br/min] 18 br/min (10/22/22 3:10 PM) 16 br/min (10/22/22 11:43 AM) 12 br/min *L* (10/22/22 11:14 AM) Temperature [96.8-100.4 DegF] 97.6 DegF (10/22/22 3:10 PM) 98.7 DegF (10/22/22 11:43 AM) 97.4 DegF (10/22/22 11:14 AM) Mode of Delivery (Oxygen) Room air (10/22/22 3:10 PM) Room air (10/22/22 11:43 AM) Room air (10/22/22 11:14 AM) Blood pressure sites Arm, left (10/22/22 3:10 PM) Arm, left (10/22/22 11:43 AM) Arm, right (10/22/22 11:14 AM) Temperature Route Oral (10/22/22 3:10 PM) Oral (10/22/22 11:43 AM) Oral (10/22/22 11:14 AM) Social History Social History Type Response Smoking Status Former smoker; Type: Cigarettes; Started at age: 9; Stopped at age: 29; entered on: 08/25/14 Sex Note * Linwood Lozano DO: PERFORM, SIGN, VERIFY Event Display: Patient Education Handout Authored Date: Patient Care team information Care Team Personnel Name: Nahed Crain RN Position: [facility] SN RN Member Role: Primary Care Nurse Name: Lex Tillman RN Position: [facility] RN Member Role: Primary Care Nurse Name: Shabana Newton MD Position: [facility] Primary Care Physician Member Role: PCP Address: Address: [address] [place] [address] Name: Tamra Perez RN Position: [facility] RN Member Role: Primary Care Nurse Name: Wu Lake RN Position: [facility] RN Member Role: Primary Care Nurse Name: Bobby Quintanilla RN Position: [facility] RN Member Role: Primary Care Nurse Name: Nic Rene Position: [facility] ED TA [facility] Member Role: Sash Clamp Operator Name: Vanna Alicia MD Position: [facility] Resident Member Role: Admitting Physician Address: Address: [address] [place] [address]- Name: Linwood Lozano DO Position: [facility] Resident Member Role: ED Resident Address: Address: [address] [place] [address]- Name: Sylwia Coello Position: [facility] ED RN W/OE and Tasks Member Role: Patient Care Provider Care Team Related Persons Name: MARK MIMS Address: home [address] [place] [id number]
--- OUTSIDE RECORDS SUMMARY | 2023-05-28 20:42 | XMS_ITS | Continuity of Care Document ---
Author Name Unknown Organization [facility] Address [address] [place] [address]- Care Team Providers Care News Writer Name Role Phone Shabana Newton MD Primary Care Physician [phone] Encounter [facility] [place] Date(s): 03/13/23 - 03/20/23 [facility] [address] [place] [address]- Attending Physician: Dominguez Morris MD Admitting Physician: Dominguez Morris MD Referring Physician: Dominguez Morris MD Allergies, Adverse Reactions, Alerts Substance Reaction [...] 03/07/23 20:14:00 EDT, Route to Pharmacy Electronically, [facility] # 302, Partial fill upon patient [...] 03/29/23 11:08:00 EDT, 03/01/23 11:08:00 EDT, Capsule, [facility] # 302, Partial fill upon patient req... Start Date: 03/01/23 Stop Date: 03/29/23 Status: Ordered Flomax 0.4 mg oral capsule 0.4 mg, By Mouth, Daily, 1 capsule daily 30 minutes after the same meal for management of urinary retention. follow up with pcp and call [facility] urology to schedule outpatient appt for furthermgmt and refills., # 30 each, Refills 11, Tot. Re... Start Date: 02/28/23 Stop Date: 02/23/24 Status: Ordered gabapentin 300 mg oral capsule See Instructions, 1 capsule By Mouth morning and noon and 2 capsules at bedtime, # 120 each, Refills 5, Tot. Refills 5, Maintenance, 02/09/23 8:50:00 EDT, Instructions Replace Required Details, [facility] Electronically, [facility] # 302,... Start Date: 02/09/23 Status: [...] 3 Refills, Maintenance, 10/20/22 12:58:00 EDT, ECCapsule, [facility] # 302, 178, cm, 10/20/22 6:36:00 EDT, Height Start Date: 10/20/22 Status: Ordered oxyCODONE 5 mg oral tablet 5 mg, 1, tablet, By Mouth, Every 6 hours, PRN, for 7 days, # 28 tablet, Refills 0, Tot. Refills 0, Acute 03/22/23 17:11:00 EDT, Pain , Severe, 03/15/23 17:11:00 EDT, Route to Pharmacy Electronically,[facility] # [facility], Partial fill upon patient [...] recent to oldest [Reference Range]: 1 Height 176 cm (03/13/23 10:01 AM) Weight 68.8 kg (03/13/23 10:01 AM) Oxygen Saturation [94-100 %] 92 % *L* (03/13/23 10:01 AM) Pulse Rate [55-90 bpm] 120 bpm *H* (03/13/23 10:01 AM) Body Mass Index [18.5-24.99 kg/m2] 22.21 kg/m2 (03/13/23 10:01 AM) Blood Pressure [90-138/55-84 mm Hg] 151/ 90mm Hg *H* (03/13/23 10:01 AM) Respiratory Rate [16-30 br/min] 19 br/mi n (03/13/23 10:01 AM) Temperature [96.8-100.4 DegF] 96.7 DegF *L* (03/13/23 10:01 AM) Mode of Delivery (Oxygen) Room air (03/13/23 10:01 AM) Blood pressure sites Arm, left (03/13/23 10:01 AM) Temperature Route Tympanic (03/13/23 10:01 AM) Social History Social History Type Response Smoking Status Former smoker, quit more than 30 days ago; Other: quit 1979; entered on: 03/13/23 Sex Patient Care team information Care Team Personnel Name: Fadumo Aguilera RN Position: S RN Member Role: Primary Care Nurse Name: Mookie Jacobson MD Position: S Renal MD Member Role: Lifetime Consulting Physician Address: Address: [address] [facility] [place] [address]- [place] Name: Nahed Crain RN Position: [facility] SN RN Member Role: Primary Care Nurse Name: Thalia Murcia RN Position: S RN Member Role: Primary Care Nurse Name: Shabana Newton MD Position: [facility] Physician - Primary Care Member Role: PCP Address: Address: [address] [place] [address] [place] [address]- [place] Name: Giorgi Schuster RN Position: S RN Member Role: Primary Care Nurse Name: Jayashree Campo RN Position: [facility] RN Supv Member Role: Primary Care Nurse Name: Daniel Dumont DO Position: [facility] Renal MD Member Role: Lifetime Consulting Physician Address: Address: [address] [place], [place] [address] [place] [address]- [place] Name: Tamra Perez RN Position: S RN Member Role: Primary Care Nurse Name: Haley Tilley RN Position: S RN Member Role: Primary Care Nurse Name: Ruchi Irwin RN Position: S RN Member Role: Primary Care Nurse Name: Bobby Quintanilla RN Position: S RN Member Role: Primary Care Nurse Name: Kg Blake MD Position: [facility] Renal MD Member Role: Lifetime Consulting Physician Address: Address: [address] [place] [address] [address] [facility] [place], [place] [address]- [place] Name: Tena Holden RN Position: S RN Member Role: Primary Care Nurse Name: Shon Fleming MD Position: [facility] Renal MD Member Role: Lifetime Consulting Physician Address: Address: [address] [place] [address] [facility] [place] [address]- [place] Name: Katiuska Benito LPN Position: S RN Member Role: Primary Care Nurse Care Team Related Persons Name: STAR MIMS Address: home [address] [place] [address]
--- OUTSIDE RECORDS SUMMARY | 2023-05-28 20:42 | XMS_ITS | Continuity of Care Document ---
Author Name Unknown Organization [facility] ter Address [address] [place] [address]- Care Team Providers Care Indirect Sales Representative Name Role Phone Shabana Newton MD Primary Care Physician [place] [facility] [place]16[place]23 - 03/16/[address] [address]- Discharge Disposition: A-D/C Home Attending Physician: Monica Deshpande MD Admitting Physician: Monica Deshpande MD Referring Physician: Mu PARRISH, Niecy Wise Allergies, Adverse Reactions, Alerts Substance Reaction Severity [...] 03/07/23 20:14:00 EDT, Route to Pharmacy Electronically, [facility] # 302, Partial fill upon patient [...] 03/29/23 11:08:00 EDT, 03/01/23 11:08:00 EDT, Capsule, [facility] # 302, Partial fill upon patient req... Start Date: 03/01/23 Stop Date: 03/29/23 Status: Ordered Flomax 0.4 mg oral capsule 0.4 mg, By Mouth, Daily, 1 capsule daily 30 minutes after the same meal for management of urinary retention. follow up with pcp and call [facility] urology to schedule outpatient appt [...] Instructions Replace Required Details, [facility] Electronically, [facility] # 302,... Start Date: 02/09/23 Status: [...] 3 Refills, Maintenance, 10/20/22 12:58:00 EDT, ECCapsule, [facility] # 302, 178, cm, 10/20/22 6:36:00 EDT, Height Start Date: 10/20/22 Status: Ordered oxyCODONE 5 mg oral tablet 5 mg, 1, tablet, By Mouth, Every 6 hours, PRN, for 7 days, # 28 tablet, Refills 0, Tot. Refills 0, Acute 03/22/23 17:11:00 EDT, Pain , Severe, 03/15/23 17:11:00 EDT, Route to Pharmacy Electronically,[facility] # 302, Partial fill upon patient [...] need repeat screening colonoscopy in 2022 Results Radiology Reports * Exam Date Time Procedure Performing Provider Status 03/16/23 7:40 AM IR End of Case Report Aut h (Verified) IR End of Case Report * Exam Date Time Procedure Performing Provider Status 03/16/23 7:40 AM IR Venous Access Device Removal iRckie Paul; Prosper (Verified) Notes: (IR Venous Access Device Removal) Reason For Exam: Other: IR Venous Access Device Removal Patient: MARYAM MIMS Study Date: 03/16/2023 Performing: Mitch Mehta PA-C Referring: : 1950 Age: 72 Gender: MALE HISTORY/INDICATION: 72 year old female]?with right internal jugular vein?(IJ) approach?tunneled central venous catheter (Watkins)?placed for antibiotic therapy, catheter no longer required. PROCEDURE: Right IJ Watkins?removal. PROCEDURE DESCRIPTION: Right IJ Watkins?removed with manual traction.? Hemostasis achieved, site cleaned, sterile dressing applied.? Patient tolerated the catheter removal well. COMPLICATIONS: None EBL: None IMPRESSION: Successful removal of right IJ Watkins Signed By Mitch Mehta PA-C On 03/16/2023 11:27:05 Mitch Mehta PA-C, Njogu MD Dictated By: Mitch Jara Dictated Date/Time: 03/16/23 7:40 am Reviewed By: Mitch Jara Signed By: Mitch Jara Signed Date/Time: 03/16/23 7:40 am Transcribed By: SANA Transcribed Date/Time: 03/16/23 7:40 am Vital Signs Most recent to oldest [Reference Range]: 1 2 Height 175 cm (03/16/23 6:38 AM) 175 cm (03/16/23 6:34 AM) Weight 68 kg (03/16/23 6:38 AM) 68 kg (03/16/23 6:34 AM) Oxygen Saturation [94-100 %] 97 % (03/16/23 6:20 AM) Pulse Rate [55-90 bpm] 92 bpm *H* (03/16/23 6:20 AM) Blood Pressure [90-138/55-84 mm Hg] 137/ 80mm Hg (03/16/23 6:20 AM) Respiratory Rate [16-30 br/min] 20 br/mi n (03/16/23 6:20 AM) Temperature [96.8-100.4 DegF] 97.4 DegF (03/16/23 6:20 AM) Mode of Delivery (Oxygen) Room air (03/16/23 6:20 AM) Blood pressure sites Arm, left (03/16/23 6:20 AM) Temperature Route Oral (03/16/23 6:20 AM) Dry Weight 68 kg (03/16/23 6:34 AM) Social History Social History Type Response Smoking Status Former smoker, quit more than 30 days ago; Other: quit 1979; entered on: 03/13/23 Sex Hospital Progress note * Mitch Hubbard RN: PERFORM, SIGN, VERIFY, SIGN, MODIFY Event Display: Progress Note Hospital Authored Date: [id number] Patient: MARYAM MIMS Age: 72 years Sex: Male : 1950 Associated Diagnoses: None Author: Mitch Hubbard RN Findings Evaluation Patient arrived to unit, VSS. Medical daystay assessment, home med review, and pre-procedure checklist completed. Resting comfortably awaiting procedure. Will continue to monitor. . * Mitch Hubbard RN: PERFORM Event Display: Progress Note Hospital Authored Date: Returned from procedure. VSS. Dressing to right chest with pinprick sized old bloody stain. No signs or symptoms of bleeding or hematoma. IV d/c'd. Discharge instructions reviewed and signed. Questions asked and answered. Discharged from unit via wheelchair. Note * Mitch Hubbard RN: PERFORM Event Display: Discharge/Transfer Note Hospital Authored Date: Nursing Discharge Note Entered On: 03/16/2023 8:42 EDT Performed On: 03/16/2023 8:42 EDT by Mitch Hubbard RN Nursing Discharge Note 2 Discharge Time : 03/16/2023 8:42 EDT Discharge Level of Care at Discharge : Home/Residential/Foster Care Patient Left Unit Via : Wheelchair Patient Accompanied Off Unit with : Responsible adult DC Instructions Provided & Signed by Pt : Yes Patient Understands D/C Instructions : Yes Patient Instructions Discharge Signed : Yes Did Pt have Specialty Bed or Wound Vac : No Mitch Hubbard RN - 03/16/2023 8:42 EDT Patient Care team information Care Team Personnel Name: Fadumo Aguilera RN Position: [facility] RN Member Role: Primary Care Nurse Name: Mookie Jacobson MD Position: [facility] Renal MD Member Role: Lifetime Consulting Physician Address: Address: [address] [place] [address], [place] [address]- Name: Nahed Crain RN Position: [facility] SN RN Member Role: Primary Care Nurse Name: Lex Tillman RN Position: [facility] RN Member Role: Primary Care Nurse Name: Thalia Murcia RN Position: [facility] RN Member Role: Primary Care Nurse Name: Shabana Newton MD Position: [facility] Physician - Primary Care Member Role: PCP Address: Address: [address] [place] [address] [place] [address]- Name: Giorgi Schuster RN Position: [facility] RN Member Role: Primary Care Nurse Name: Jayashree Campo RN Position: [facility] RN Supv Member Role: Primary Care Nurse Name: Christi Feliciano Position: S RN Member Role: Primary Care Nurse Name: Daniel Dumont DO Position: [facility] Renal MD Member Role: Lifetime Consulting Physician Address: Address: [address] [facility] [address] [facility] [place] [address]- [place] Name: Tamra Perez RN Position: S RN Member Role: Primary Care Nurse Name: Haley Tilley RN Position: S RN Member Role: Primary Care Nurse Name: Ruchi Irwin RN Position: S RN Member Role: Primary Care Nurse Name: Bobby Quintanilla RN Position: S RN Member Role: Primary Care Nurse Name: Kg Blake MD Position: [facility] Renal MD Member Role: Lifetime Consulting Physician Address: Address: [address] [place] [address] [address] [facility] [place] [address]- Name: Tena Holden RN Position: [facility] RN Member Role: Primary Care Nurse Name: Shon Fleming MD Position: [facility] Renal MD Member Role: Lifetime Consulting Physician Address: Address: [address] [place] [address] [facility] [place] [address]- [place] Name: Katiuska Benito LPN Position: S RN Member Role: Primary Care Nurse Care Team Related Persons Name: STAR MIMS Address: home [address] [place] [address]
--- OUTSIDE RECORDS SUMMARY | 2023-05-28 20:42 | XMS_ITS | Continuity of Care Document ---
Author Name Unknown Organization [facility] Disease Address [address] [place] [address]- Care Team Providers Care Trade Facilitator Name Role Phone Shabana Newton MD Primary Care Physician [facility]counter [facility] Date(s): 11/13/22 - 12/13/22 [facility] [address] [place] [address] Allergies, Adverse Reactions, Alerts Substance Reaction Severity [...] 05/15/22 9:40:00 EST, Route to Pharmacy Electronically, [facility] # 302, 177.8, cm, 05/15/22 9:07:00 [...] 3 Refills, Maintenance, 05/15/22 9:40:00 EST, Tablet, [facility] # 302, Partial fill upon patient request, 177.8, cm, 05/15/22 9:07:00 EST, Height Start Date: 05/15/22 Stop Date: 09/12/22 Status: Ordered bisoprolol-hydrochlorothiazide 10 mg-6.25 mg oral tablet 1 tablet, By Mouth, Daily, # 90 tablet, 3 Refills, Maintenance, 05/15/22 9:40:00 EST, Tablet, [facility] # 302, 1 tablet By Mouth Daily, 177.8, cm, 05/15/22 9:07:00 EST, Height Start Date: 05/15/22 Status: Ordered ibuprofen 800 mg oral tablet 1, tablet, By Mouth, 3 times a day, PRN, # 42 tablet, Refills 0, Maintenance, NEEDED FOR MODERATE PAIN FOR, 11/22/22 14:25:00 EDT, Route to Pharmacy Electronically, [facility] #[id number], 175, cm, 11/17/22 9:46:00 EDT, Height, 79.5, [...] 3 Refills, Maintenance, 10/20/22 12:58:00 EDT, ECCapsule, [facility] # 302, 178, cm, 10/20/22 6:36:00 [...] Team Personnel Name: Nahed Crain RN Position: [facility] SN RN Member Role: Primary Care Nurse Name: Lex Tillman RN Position: S RN Member Role: Primary Care Nurse Name: Shabana Newton MD Position: S Physician - Primary Care Member Role: PCP Address: Address: [address] [place] [address] [place] [address]- Name: Tamra Perez RN Position: S RN Member Role: Primary Care Nurse Name: Wu Lake RN Position: S RN Member Role: Primary Care Nurse Name: Bobby Quintanilla RN Position: S RN Member Role: Primary Care Nurse Care Team Related Persons Name: MARK MIMS Address: [address] [address]
--- OUTSIDE RECORDS SUMMARY | 2023-05-28 20:42 | XMS_ITS | Continuity of Care Document ---
Author Name Unknown Organization [facility] Address [address] [place] [address] [address], [address] [place] [address]- Care Team Providers Care General Production Manager Name Role Phone Shabana Newton MD Primary Care Physician [phone] Encounter [facility] Date(s): 04/23/23 - 05/23/23 [facility] [address] [place] [address], [address] [place] [address]- Allergies, Adverse Reactions, Alerts Substance Reaction Severity [...] 03/07/23 20:14:00 EDT, Route to Pharmacy Electronically, [facility] # 302, Partial fill upon patient [...] retention. follow up with pcp and call [facility] urology to schedule outpatient appt for furthermgmt and refills., # 30 each, Refills 11, Tot. Re... Start Date: 02/28/23 Stop Date: 02/23/24 Status: Ordered gabapentin 300 mg oral capsule See Instructions, 1 capsule By Mouth morning and noon and 2 capsules at bedtime, # 120 each, Refills 5, Tot. Refills 5, Maintenance, 02/09/23 8:50:00 EDT, Instructions Replace Required Details, [facility] Electronically, [facility] # 302,... Start Date: 02/09/23 Status: Ordered ipratropium 500 mcg/2.5 mL inhalation solution 500 mcg, 2.5, mL, Inhalation, 4 times a day, PRN, # 120 each, Refills 11, Tot. Refills 11, Maintenance, 04/18/23 12:19:00 EST, Solution, Route to Pharmacy Electronically, [id number], [facility] # 302, 175, cm, 04/13/23 1... [...] 10/20/22 12:58:00 EDT, ECCapsule, [facility] # 302, 178, cm, 10/20/22 6:36:00 EDT, Height Start Date: 10/20/22 Status: Ordered oxyCODONE 10 mg oral tablet 1 tablet = 10 mg, By Mouth, 3 times a day, PRN Pain , Severe, for 28 days, # 84 tablet, 0 Refills, Acute 05/28/23 16:57:00 EST, 04/30/23 16:57:00 EST, [facility] # 302, Partial fill upon patientrequest [...] Team Personnel Name: Fadumo Aguilera RN Position: [facility] RN Member Role: Primary Care Nurse Name: Mookie Jacobson MD Position: [facility] Renal MD Member Role: Lifetime Consulting Physician Address: Address: [address] [place] [address] [address] [place] [address]- [place] Name: Nahed Crain RN Position: [facility] SN RN Member Role: Primary Care Nurse Name: Thalia Murcia RN Position: S RN Member Role: Primary Care Nurse Name: Shabana Newton MD Position: [facility] Physician - Primary Care Member Role: PCP Address: Address: [address] [place] [address] [place] [address]- Name: Giorgi Schuster RN Position: [facility] RN Member Role: Primary Care Nurse Name: Jayashree Campo RN Position: S RN Supv Member Role: Primary Care Nurse Name: Daniel Dumont DO Position: S Renal MD Member Role: Lifetime Consulting Physician Address: Address: [address] [facility] [address] [facility] [place] [address]- Name: Tamra Perez RN Position: S RN Member Role: Primary Care Nurse Name: Haley Tilley RN Position: S RN Member Role: Primary Care Nurse Name: Ruchi Irwin RN Position: S RN Member Role: Primary Care Nurse Name: Bobby Quintanilla RN Position: S RN Member Role: Primary Care Nurse Name: Kg Blake MD Position: [facility] Renal MD Member Role: Lifetime Consulting Physician Address: Address: [address] [place] [address] [address] [facility] [place] [address]- [place] Name: Tena Holden RN Position: S RN Member Role: Primary Care Nurse Name: Shon Fleming MD Position: [facility] Renal MD Member Role: Lifetime Consulting Physician Address: Address: [address] [place] [address] [facility] [place] [address]- [place] Name: Katiuska Benito LPN Position: S RN Member Role: Primary Care Nurse Care Team Related Persons Name: STAR MIMS Address: [address] [place] [address]
--- OUTSIDE RECORDS SUMMARY | 2023-05-28 20:42 | XMS_ITS | Continuity of Care Document ---
Author Name Unknown Organization [facility] Address [address] [place] [address]- Care Team Providers Care Bucket Wash Operator Name Role Phone Shabana Newton MD Primary Care Physician [phone] Encounter [facility] [place] Date(s): 01/17/23 - 02/16/23 [facility] [address] [place] [id number] Allergies, Adverse Reactions, Alerts Substance Reaction [...] 02/09/23 8:56:00 EDT, Route to Pharmacy Electronically, [facility] # [id number], Partial fill upon patient [...] retention. follow up with pcp and call [facility] to schedule outpatient appt for furthermgmt and refills., # 30 tablet, Refills 0, Tot. R... Start Date: 01/31/23 Status: Ordered folic acid 1 mg oral tablet 1 mg, By Mouth, Daily, 1 tablet daily for nutrition. refills-contact pcp or purchase over the counter., # 30 tablet, Refills 0, Tot. Refills 0, Maintenance, 01/31/23 9:57:00 EDT, Route to Pharmacy Electronically, [facility], NO FURTHER R... Start Date: 01/31/23 Status: Ordered gabapentin 300 mg oral capsule See Instructions, 1 capsule By Mouth morning and noon and 2 capsules at bedtime, # 120 each, Refills 5, Tot. Refills 5, Maintenance, 02/09/23 8:50:00 EDT, Instructions Replace Required Details, [facility],... Start Date: 02/09/23 Status: [...] 01/31/23 9:55:00 EDT, Route to Pharmacy Electronically, [facility],... Start Date: 01/31/23 Status: Ordered thiamine 100 mg oral tablet 100 mg, By Mouth, Daily, 1 tablet daily for nutrition. refills-contact pcp or purchase over the counter., # 90 tablet, Refills 0, Tot. Refills 0, Maintenance, 01/31/23 9:57:00 EDT, Route to Pharmacy Electronically, [facility], NO FURTHER... Start Date: [...] Care Nurse Name: Mookie Jacobson MD Position: [facility] Renal MD Member Role: Lifetime Consulting Physician Address: Address: [address] [place] [address], [address] [place] [address]- [place] Name: Nahed Crain RN Position: [facility] SN RN Member Role: Primary Care Nurse Name: Lex Tillman RN Position: S RN Member Role: Primary Care Nurse Name: Thalia Murcia RN Position: S RN Member Role: Primary Care Nurse Name: Shabana Newton MD Position: [facility] Physician - Primary Care Member Role: PCP Address: Address: [address] [place] [address] [place] [address]- Name: Giorgi Schuster RN Position: S RN Member Role: Primary Care Nurse Name: Jayashree Campo RN Position: [facility] RN Supv Member Role: Primary Care Nurse Name: Christi Feliciano Position: S RN Member Role: Primary Care Nurse Name: Daniel Dumont DO Position: [facility] Renal MD Member Role: Lifetime Consulting Physician Address: Address: [address] [place], [place] [address] [place] [address]- Name: Tamra Perez RN Position: [facility] RN Member Role: Primary Care Nurse Name: Haley Tilley RN Position: [facility] RN Member Role: Primary Care Nurse Name: Ruchi Irwin RN Position: [facility] RN Member Role: Primary Care Nurse Name: Bobby Quintanilla RN Position: [facility] RN Member Role: Primary Care Nurse Name: Kg Blake MD Position: [facility] Renal MD Member Role: Lifetime Consulting Physician Address: Address: [address] [place] [address] [address] [facility], [place] [address]- Name: Tena Holden RN Position: [facility] RN Member Role: Primary Care Nurse Name: Shon Fleming MD Position: [facility] Renal MD Member Role: Lifetime Consulting Physician Address: Address: [address] [place] [address] [facility] [place] [address]- Name: Katiuska Benito LPN Position: [facility] RN Member Role: Primary Care Nurse Care Team Related Persons Name: MARK MIMS Address: [address] [address]
--- OUTSIDE RECORDS SUMMARY | 2023-05-28 20:42 | XMS_ITS | Continuity of Care Document ---
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 Start Date: 03/01/23 Stop Date: 03/29/23 Status: Ordered Flomax 0.4 mg oral capsule 0.4 mg, By Mouth, Daily, 1 capsule daily 30 minutes after the same meal for management of urinary retention. follow up with pcp and call [facility]rology to schedule outpatient appt for furthermgmt and refills., # 30 each, Refills 11, Tot. Re... Start Date: 02/28/23 Stop Date: 02/23/24 Status: Ordered gabapentin 300 mg oral capsule See Instructions, 1 capsule By Mouth morning and noon and 2 capsules at bedtime, # 120 each, Refills 5, Tot. Refills 5, Maintenance, 02/09/23 8:50:00 EDT, Instructions Replace Required Details, [facility] Electron[facility], [facility] # [facility],... Start Date: 02/09/23 Status: [...] 3 Refills, Maintenance, 10/20/22 12:58:00 EDT, ECCapsule, [facility] # 302, 178, cm, 10/20/22 6:36:00 EDT, Height Start Date: 10/20/22 Status: Ordered oxyCODONE 10 mg oral tablet 1 tablet = 10 mg, By Mouth, Every 8 hours, hold for sedation/sleepiness, altered mental status, confusion, # 42 tablet, 0 Refills, Maintenance, 02/09/23 8:52:00 EDT, Tablet, [facility] # 302, Partial fill upon patient [...] Care Nurse Name: Mookie Jacobson MD Position: [facility] Renal Member Role: Lifetime Consulting Physician Address: Address: [address] [place] [address], [address] [place] [address] Name: Nahed Crain RN Position: [facility] DOMINGUE[facility] RN Member Role: Primary Care Nurse Name: Lex Tillman RN Position: S RN Member Role: Primary Care Nurse Name: Thalia Murcia RN Position: S RN Member Role: Primary Care Nurse Name: Shabana Newton MD Position: [facility] Physician - Primary Care Member Role: PCP Address: Address: [address] [facility] [place] [address]- [place] Name: Giorgi Schuster RN Position: S RN Member Role: Primary Care Nurse Name: Jayashree Campo RN Position: S RN Supv Member Role: Primary Care Nurse Name: Christi Feliciano Position: S RN Member Role: Primary Care Nurse Name: Daniel Dumont DO Position: [facility] Renal MD Member Role: Lifetime Consulting Physician Address: Address: [address] [place] [address] [address] [facility] [place] [address]- Name: Tamra Perez RN Position: S RN Member Role: Primary Care Nurse Name: Haley Tilley RN Position: S RN Member Role: Primary Care Nurse Name: Ruchi Irwin RN Position: [facility] RN Member Role: Primary Care Nurse Name: Bobby Quintanilla RN Position: S RN Member Role: Primary Care Nurse Name: Kg Blake MD Position: [facility] Renal MD Member Role: Lifetime Consulting Physician Address: Address: [address] [place] [address] [address] [facility] [place] [address]- [place] Name: Tena Holden RN Position: [facility] RN Member Role: Primary Care Nurse Name: Shon Fleming MD Position: [facility] Renal MD Member Role: Lifetime Consulting Physician Address: Address: [address] [place] [address] [facility] [place] [address]- [place] Name: Katiuska Benito LPN Position: S RN Member Role: Primary Care Nurse Care Team Related Persons Name: MARK MIMS Address: home [address] [place] [address] Name: ERICA LOUISE
--- OUTSIDE RECORDS SUMMARY | 2023-05-28 20:42 | XMS_ITS | Continuity of Care Document ---
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 Name Role Phone Shabana Newton MD Primary Care Physician Encounter [facility] Date(s): 01/03/23 - 01/12/[address] [address]- Encounter Diagnosis Lumbar back pain(Final) - 01/03/23 Discharge Disposition: A-D/C Home Attending Physician: Quique Kearney MD Admitting Physician: Delfino Holbrook DO Referring Physician: Not on Staff, Referring MD [...] 05/15/22 9:40:00 EST, Route to Pharmacy Electronically, [facility] # [id number], 177.8, cm, 05/15/22 9:07:00 EST, Height Start Date: 05/15/22 Status: Ordered amLODIPine 10 mg oral tablet 10 mg, Tablet, By Mouth, 01/12/23 9:00:00 EDT Start Date: 01/12/23 Stop Date: 01/12/23 Status: Completed aspirin 81 mg oral delayed release tablet 81 mg, 1, tablet, By Mouth, Daily, # 30 tablet, Refills 11, Maintenance, 04/23/20 14:26:00 EST, Partial fill upon patient request Start Date: 04/23/20 Stop Date: 05/23/20 Status: Ordered atorvastatin 40 mg oral tablet 1 tablet = 40 mg, By Mouth, Daily, replaces Simvastatin, # 90 tablet, 3 Refills, Maintenance, 05/15/22 9:40:00 EST, Tablet, [facility] # [id number], Partial fill upon patient request, 177.8, cm, 05/15/22 9:07:00 EST, Height Start Date: 05/15/22 Stop Date: 09/12/22 Status: Ordered MiraLax oral powder for reconstitution = 17 Gm, By Mouth, Daily, dissolve in water before taking, # 255 Gm, 0 Refills, Maintenance, 01/11/23 17:01:00 EDT, REC Powder, [facility], Partial fill upon [...] 3 Refills, Maintenance, 10/20/22 12:58:00 EDT, ECCapsule, [facility] # [id number], 178, cm, 10/20/22 6:36:00 EDT, Height Start Date: 10/20/22 Status: Ordered oxyCODONE 5 mg oral tablet 10 mg, By Mouth, Every 6 hours, PRN, # 60 tablet, Refills 0, Tot. Refills 0, Acute 02/11/23 8:00:00EDT, Pain , Moderate, 01/11/23 16:59:00 EDT, Route to Pharmacy Electronically, [facility], Partial fill upon patient request if the presc... Start Date: 01/11/23 Stop Date: 02/11/23 Status: Ordered oxyCODONE 5 mg oral tablet 10 mg, Tablet, By Mouth, Hold for: sedation, 01/12/23 15:00:00 EDT Start Date: 01/12/23 Stop Date: 01/12/23 Status: Completed Senna 8.6 mg oral tablet 8.6 mg, 1, tablet, By Mouth, Daily, # 50 tablet, Refills 0, Tot. Refills 0, Maintenance, 01/11/23 17:01:00 EDT, Route to Pharmacy Electronically, [facility] Tablet, Partial fill [...] Results Orders for Microbiology Reports Name Date Anaerobic Culture (ANAEROBIC CULTURE) Sterile Body Fluid Culture W/ Gram Smear 01/05/23 Blood Culture 01/03/23 Blood Culture #2 01/03/23 Microbiology Reports TEST:Anaerobic Culture STATUS:Unauthenticated BODY SITE: SOURCE:JOINT COLLECTED DATE/TIME:01/05/23 10:30 AM Anaerobic Culture SPECIMEN DESCRIPTION : JOINT FLUID T9 T10 DISC ASPIRATE SPECIAL REQUESTS : PLEASE NOTE THAT CULTURE RESULTS MAY BE COMPROMISED BY THE LIMITED VOLUME OF SPECIMEN RECEIVED CULTURE : NO ANAEROBES ISOLATED SO FAR. REPORT STATUS : PRELIMINARY REPORT TEST:Sterile Fluid Culture STATUS:Auth (Verified) BODY SITE: SOURCE:JOINT COLLECTED DATE/TIME:01/05/23 10:30 AM Sterile Fluid Culture SPECIMEN DESCRIPTION : JOINT FLUID T9 T10 DISC ASPIRATE SPECIAL REQUESTS : PLEASE NOTE THAT CULTURE RESULTS MAY BE COMPROMISED BY THE LIMITED VOLUME OF SPECIMEN RECEIVED GRAM STAIN : 4+ RBC'S 2+ POLYMORPHONUCLEAR LEUKOCYTES NO ORGANISMS SEEN CULTURE : NO GROWTH 2 DAYS REPORT STATUS : FINAL 01/07/2023 TEST:Blood Culture STATUS:Auth (Verified) BODY SITE: SOURCE:Blood COLLECTED DATE/TIME:01/03/23 3:31 AM Blood Culture SPECIMEN DESCRIPTION : BLOOD L HAND SPECIAL REQUESTS : NONE CULTURE : NO GROWTH 5 DAYS. REPORT STATUS : FINAL 01/08/2023 TEST:Blood Culture, Second Order STATUS:Auth (Verified) BODY SITE: SOURCE:Blood COLLECTED DATE/TIME:01/03/23 3:25 AM Blood Culture, Second Order SPECIMEN DESCRIPTION : BLOOD R FOREARM SPECIAL REQUESTS : NONE CULTURE : NO GROWTH 5 DAYS. REPORT STATUS : FINAL 01/08/2023 Radiology Reports * Exam Date Time Procedure Performing Provider Status 01/11/23 2:54 PM IR End of Case Report Auth (Verified) IR End of Case Report * Exam Date Time Procedure Performing Provider Status 01/11/23 2:54 PM IR Watkins Insertion Auth (Verified) Notes: (IR Watkins Insertion) Reason For Exam: Other: IR Watkins Insertion Patient: LUIS ANGEL MIMS Study Date: 01/11/2023 Performing: Monica Deshpande MD Referring: : 1950 Age: 72 Gender: MALE Pre-procedure diagnosis and Indication: 72 yo patient with h/o psoriasis on Humira, additional medical comorbidities who presented with worsening T9-T10 discitis osteomyelitis despite antibiotic therapy s/p T10 bone biopsy 01/05/23. IR now consulted for durable central venous access for long-term IV antibiotic therapy. Exam: Prior to the procedure, the patient was seen and the nature of the procedure explained along with its attendant risks and benefits to the patient . Informed consent was obtained from, the patient . The patient underwent a pre-sedation assessment. On completion of this it was determined the patient is appropriate for the planned procedure. The patient arrived in IR room 2 for a tunneled central venous catheter insertion. PROCEDURE: The patient was positioned supine and secured with arm boards. The access site was evaluated with ultrasound and images archived. The site was prepped with chloraprep and draped in the usual sterile fashion. Patient received moderate sedation administered under my direct supervision. Local anesthetic was given and The vessel was identified using, ultrasound access was gained into the right internal jugular vein using needle and wire from the kit. Next, a site for catheter insertion was selected on the right upper outer chest. Additional local analgesia was administered at the catheter skin insertion site and along the anticipated tunneling tract. A small incision was made. The catheter was tunneled from the right chest to the right neck incision. The catheter was cut down to 25 cm and inserted. The catheter was tested with good flow and return. No leaks were noted. The Catheter was flushed with heparin 10u/ml 5 ml's. The catheter was secured to the skin with a stat lock. The sterile field was maintained throughout the procedure and patient tolerated the procedure well with no complications of the procedure. Catheter used: Medcomp Pro Line Single 5FR x 60cm - Qty: 1 Each Part #: [id number] estimated blood loss was minimal Specimens/samples: no specimens or samples were sent for this procedure Patient transferred to[address] Post procedure instructions sent in envelope with the patient Impression: 1. Patent and compressible right IJ vein by ultrasound. 2. New 5 Fr x 25 cm right-sided single lumen tunneled central venous catheter, tip in the proximal right atrium. The catheter is ready for immediate use. Should catheter malfunction develop please contact this service directly rather than having a diagnostic study performed elsewhere. Fluoroscopy time and dose Total Fluoro Time: 0.1 mins Total dose 1 mGy Total DAP 3.32 - ?Gy/m2 No contrast was used for this procedure Local Anesthetic Lidocaine 1% w/ 4.2% sodium bicarbonate 10 ml's SQ Lidocaine 2% w/ 1:100,000 epinephrine 6 ml's SQ Moderate sedation was provided From 15:23:00 to 15:30:00 Moderate Sedation Agent Dose Route Time By Fentanyl 25 mcg IV 15:23:13 SP Versed 0.5 mg IV 15:23:18 SP Signed By Monica Deshpande MD On 01/11/2023 17:04:41 Monica Deshpande MD Dictated By: Monica Deshpande MD Dictated Date/Time: 01/11/23 2:54 pm Reviewed By: Monica Deshpande MD Signed By: Monica Deshpande MD Signed Date/Time: 01/11/23 2:54 pm Transcribed By: YUNIER Transcribed Date/Time: 01/11/23 2:54 pm * Exam Date Time Procedure Performing Provider Status 01/08/23 6:[address] Abd/Pelvis W/ Ora l Contrast Only Orquidea , Abby; Auth (Verified) Notes: (CT Abd/Pelvis W/ Oral Contrast Only) Reason For Exam: Pain RESULT: CT Abd/Pelvis W/ Oral Contrast Only CT Abd/Pelvis W/ Oral Contrast Only REASON: Pain; Clinical Question(s): Obstruction TECHNIQUE: Spiral CT through the abdomen and pelvis without IV contrast formatted in 3 planes. Thisstudy was performed with oral contrast. Weight-based protocol using automatic tube modulation was used to optimize exposure parameters. CTDIvol Body: 14.20 mGy, DLP Body: 748 mGy*cm. 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 Visualized Chest: Linear scarring/atelectasis in the right lower lobe. Small left pleural effusion with adjacent compressive atelectasis. The heart is normal in size. No pericardial effusion. Coronary artery calcifications. Diaphragm: Normal. Liver: Few subcentimeter circumscribed low-density lesions likely represent cysts (in the absence of known malignancy). Gallbladder: Contracted without CT evidence of gallbladder pathology. Bile ducts: No biliary ductal dilation. Spleen: Normal. Pancreas: Normal. Adrenal glands: Normal. Kidneys and ureters: Mild bilateral perinephric stranding. No hydronephrosis, stones, or noncontrast evidence of suspicious masses. Simple appearing renal cysts are noted, requiring no dedicated follow up. Bladder: Mild circumferential wall thickening, similar to prior. Reproductive organs: Unremarkable. Stomach, small bowel, and large bowel: Normal caliber stomach and bowel. No evidence of obstructionor surrounding inflammatory changes. Enteric contrast reaches the distal small bowel. Colonic diverticulosis without evidence of diverticulitis. Appendix: Normal. Peritoneum and retroperitoneum: No ascites or pneumoperitoneum. No omental or mesenteric lesions. Lymph nodes: No enlarged lymph nodes. Blood vessels: Moderate atherosclerotic vascular calcification. No aortic aneurysm. Abdominal and pelvic wall: Fat-containing umbilical hernia. Ovoid fat density lesion within the left gluteal muscle, likely representing a lipoma. Bones: No acute abnormality. Severe degenerative changes of L3-L5. IMPRESSION: 1. No acute abnormality in the abdomen and pelvis. 2. Small left pleural effusion with associated adjacent compressive atelectasis. I have personally reviewed the images and I agree with this report. WSN: [id number] Ordering Physician: Madhavi Rojas Dictated By: Carolyn Ambrose DO Dictated Date/Time: 01/08/23 10:01 p Reviewed By: Lucero Bland MD Signed By: Lucero Bland MD Signed Date/Time: 01/08/23 10:06 pm Transcribed By: JAIME Transcribed Date/Time: 01/08/23 9:56 pm * Exam Date Time Procedure Performing Provider Status 01/07/23 2:44 PM Abdomen AP Jose Long; Auth ( Verified) Notes: (Abdomen AP) Reason For Exam: Pain RESULT: XR Abdomen AP XR Abdomen AP 1 view performed supine at 2:19 PM Reason: Pain; Clinical Question(s): Obstruction COMPARISON: CT of abdomen and pelvis dated 11/09/2022. FINDINGS: Mild stool retention in the ascending and transverse colon but otherwise normal bowel gas pattern. No evidence of obstruction. No evidence of pneumoperitoneum. No organomegaly, masses or calcifications. No acute bone findings. Degenerative changes seen in the spine and there is mild joint space narrowing in both hips. IMPRESSION: Mild stool retention but otherwise normal. WSN: [id number] Ordering Physician: Aarti Hardy Dictated By: Sandy Dash MD Dictated Date/Time: 01/07/23 4:37 pm Reviewed By: Sandy Dash MD Signed By: Sandy Dash MD Signed Date/Time: 01/07/23 4:37 pm Transcribed By: JAIME Transcribed Date/Time: 01/07/23 4:35 pm * Exam Date Time Procedure Performing Provider Status 01/05/23 12:[address] Guidance Needle Biopsy Lary Jason; Auth (Verified) Notes: (CT Guidance Needle Biopsy) Reason For Exam: osteomyelitis/discitis CT Guidance Needle Biopsy Patient: LUIS ANGEL MIMS Study Date: 01/05/2023 Performing: Monica Deshpande MD Referring: : 1950 Age: 72 Gender: MALE PROCEDURE: CT Guided Biopsy of T10 vertebral body and T9-T10 disc aspiration INDICATION: 72 yo patient with h/o psoriasis on Humira, additional medical comorbidities who presented with worsening back pain and imaging showing worsening T9-T10 discitis osteomyelitis despite antibiotic therapy, IR consulted for bone biopsy MANAGING JEWELER(S): Monica Deshpande MD ANESTHESIA: 1% Lidocaine 7 mL SQ was administered for local anesthesia. Fentanyl 50 mcg IV, Versed 0.5 mg IV, Fentanyl 50 mcg IV. ICharlee Sidak MD, was present throughout the procedure and directly supervised the administration of moderate sedation by Carri Corey RN. Sedation start time: 10:11:51; Sedation end time: 10:31:04 RADIATION DOSE: Total Exam DLP: 719.83 mGy-cm TECHNIQUE: Informed consent for a CT guided biopsy of T10 vertebral body and T9-T10 disc aspiration was obtained from the patient prior to the start of the procedure. A timeout was done, confirming the correct patient, planned procedure and additional relevant details. A limited CT scan of the lower thoracic spine was performed using automatic tube current modulation to optimize exposure parameters. A suitable access site was identified, marked, prepped, and draped in standard fashion. Maximum sterile barrier technique was used throughout the procedure. Initial imaging showed the endplate changes at T9-T10 concerning for discitis-osteomyelitis, better characterized on the recent prior MRI spine 01/03/23. Using intermittent CT fluoroscopy guidance, an 11 ga bone biopsy needle was advanced to the periphery of the T10 vertebral body. Using the powered bone biopsy system, the biopsy needle was advanced to the T10 vertebral body via the left pedicle. Needle position was confirmed with CT fluoroscopy. Core biopsy specimen was obtained. Next, the needle was repositioned to a slightly more craniad position and disc aspirate was obtained. The needle was then removed. Post-biopsy imaging was performed, which demonstrated expected post-biopsy changes including biopsy site, and focus on air within the T9-T10 disc space. No soft tissue hematoma visualized. A sample was sent for requested studies. T9-T10 disc aspirate sent for labs- COMPLICATIONS: The patient tolerated the procedure well and in stable condition. There were no immediate complications. IMPRESSION: CT-guided biopsy of the T10 vertebral body and T9-T10 disc aspiration, specimen submitted for requested studies. Signed By Monica Deshpande MD On 01/05/2023 12:37:58 Monica Deshpande MD SUPPLIES : [employer] BONE MARROW TRAY 11 X 6 Dictated By: Monica Deshpande MD Dictated Date/Time: 01/05/23 0:00 am Reviewed By: Monica Deshpande MD Signed By: Monica Deshpande MD Signed Date/Time: 01/05/23 0:00 am Transcribed By: YUNIER Transcribed Date/Time: 01/05/23 0:00 am * Exam Date Time Procedure Performing Provider Status 01/03/23 4:15 PM MRI Lumbar Spine W+W/O Contrast Ryland Pka (Verified) Notes: (MRI Lumbar Spine W+W/O Contrast) Reason For Exam: severe thorcaic lumbar pain;Pain/Trauma RESULT: MRI Lumbar Spine W+W/O Contrast MRI Thoracic Spine W+W/O Contrast, MRI Lumbar Spine W+W/O Contrast INDICATION: Hx of Present Illness: lower back painx 2 mths; Reason: Pain Trauma; severe thorcaic lumbar pain; Clinical Question(s): Disc Space Infection; Order Comment: Please see Reference Text for complete list of contraindications Disc Space Infection TECHNIQUE: MRI of the thoracic and lumbar spine was performed without and with intravenous gadolinium contrast material utilizing multiple pulse sequences. 15 mL of Clariscan was administered intravenously. COMPARISON: 10/11/2022 FINDINGS: MRI OF THE THORACIC SPINE LOCALIZER: No additional findings on limited localizer images. ALIGNMENT, VERTEBRAE, MARROW, AND DISCS: CORD: The thoracic cord is normal in signal and contour. There is no abnormal enhancement. PARASPINAL TISSUES: Visualized paraspinal soft tissues are unremarkable. Small bilateral pleural effusions. Exaggeration of the thoracic kyphosis is noted, and mild chronicloss of height of several thoracic vertebral bodies is similar. * Diffuse T1 hypointense signal of the T9 and T10 vertebral bodies is now present, and there has been interval destruction of the inferior aspect of T9, which is now moderately diminished in height. Irregular T2 bright signal is present within the severely narrowed T9-T10 disc space with multiple no nenhancing foci compatible with fluid or intradiscal abscess. Mild destruction of the superior endplate of T10 is noted without significant change in height. Circumferential epidural enhancement is noted at T9 and T10, which is more pronounced within the ventral epidural space. This severely narrows the thoracic spinal canal at mid T9 through upper T10. The thoracic cord is compressed at T9 and T10, and hazy T2 bright signal is present within the compressed cord. Epidural enhancement extends through the T9-T10 foramina and is contiguous with diffuse paraspinal enhancement at T9 and T10. There is a 19 mm x 11 mm peripherally-enhancing irregular fluid collection within the left ventrolateral paraspinal soft tissues at T9-T10 (series 8, image 57). Additional rounded T2 bright foci are present within the left posterolateral paraspinal soft tissues (series 8, images 58-60). These measure up to 7 mm. The remainder of the thoracic spinal cord is normal in signal. No abnormal leptomeningeal enhancement. 8 mm T2 bright lesion within the visualized left lobe of the thyroid gland, which falls below size threshold for thyroid sonography recommendation. Nonspecific STIR bright signal of the posterior T1 vertebral body MRI OF THE LUMBAR SPINE Multiple images are degraded by patient motion which diminishes detail, and interpretation was madein light of this technical confine. A mild rightward curvature of the lumbar spine is present. Subtle retrolisthesis of L3 on L4 is noted. Heterogeneity of the marrow is present on the sagittal T1- weighted images. No marrow STIR hyperintensity is noted, and the facet joints are normal in signal. Multilevel loss of lumbar disc space height remains most pronounced at L3-L4 and L4-L5. Marginal osteophytes and facet arthroses are present at multiple levels. The visualized lower thoracic cord is normal in signal, and the conus terminates at L1. The lumbar epidural fluid collection is present, and there is no abnormal leptomeningeal enhancement. Central canal stenosis remains most pronounced at L3-L4 and L4-L5, but detail is degraded by motion. Foraminal stenoses at these levels are similar in appearance. No lumbar paraspinal fluid collection or abnormal paraspinal enhancement. IMPRESSION: 1. Progression of osteomyelitis/discitis at T9-T10 with new destruction of the T9 vertebral body. Nonenhancing fluid signal within the T9-T10 disc space is compatible with intradiscal abscess. Epidural phlegmon at T9 and T10 is present which severely narrows the spinal canal and compresses the thoracic spinal cord. Hazy T2 bright signal of the compressed cord is present. 2. Paraspinal phlegmon and left-sided paraspinal abscesses as detailed above. 3. No evidence of osteomyelitis/discitis or septic facet joint arthritis of the lumbar spine. 4. Nonspecific STIR bright signal of the posterior T1 vertebral body of indeterminate etiology. 5. Small bilateral pleural effusions. The findings regardings impressions #1 and #2 were discussed with BHAVESH Varela. 01/03/2023 at 4:53 PM. WSN: [id number] Ordering Physician: Yolis Sanabria Dictated By: Diego Georges MD Dictated Date/Time: 01/03/23 4:59 pm Reviewed By: Diego Georges MD Signed By: Diego Georges MD Signed Date/Time: 01/03/23 4:59 pm Transcribed By: JAIME Transcribed Date/Time: 01/03/23 4:26 pm * Exam Date Time Procedure Performing Provider Status 01/03/23 4:15 PM MRI Thoracic Spine W+W/O Contrast Ryland Morataya (Verified) Notes: (MRI Thoracic Spine W+W/O Contrast) Reason For Exam: severe thorcaic lumbar pain;Pain/Trauma RESULT: MRI Thoracic Spine W+W/O Contrast MRI Thoracic Spine W+W/O Contrast, MRI Lumbar Spine W+W/O Contrast INDICATION: Hx of Present Illness: lower back painx 2 mths; Reason: Pain Trauma; severe thorcaic lumbar pain; Clinical Question(s): Disc Space Infection; Order Comment: Please see Reference Text for complete list of contraindications Disc Space Infection TECHNIQUE: MRI of the thoracic and lumbar spine was performed without and with intravenous gadolinium contrast material utilizing multiple pulse sequences. 15 mL of Clariscan was administered intravenously. COMPARISON: 10/11/2022 FINDINGS: MRI OF THE THORACIC SPINE LOCALIZER: No additional findings on limited localizer images. ALIGNMENT, VERTEBRAE, MARROW, AND DISCS: CORD: The thoracic cord is normal in signal and contour. There is no abnormal enhancement. PARASPINAL TISSUES: Visualized paraspinal soft tissues are unremarkable. Small bilateral pleural effusions. Exaggeration of the thoracic kyphosis is noted, and mild chronicloss of height of several thoracic vertebral bodies is similar. * Diffuse T1 hypointense signal of the T9 and T10 vertebral bodies is now present, and there has been interval destruction of the inferior aspect of T9, which is now moderately diminished in height. Irregular T2 bright signal is present within the severely narrowed T9-T10 disc space with multiple no nenhancing foci compatible with fluid or intradiscal abscess. Mild destruction of the superior endplate of T10 is noted without significant change in height. Circumferential epidural enhancement is noted at T9 and T10, which is more pronounced within the ventral epidural space. This severely narrows the thoracic spinal canal at mid T9 through upper T10. The thoracic cord is compressed at T9 and T10, and hazy T2 bright signal is present within the compressed cord. Epidural enhancement extends through the T9-T10 foramina and is contiguous with diffuse paraspinal enhancement at T9 and T10. There is a 19 mm x 11 mm peripherally-enhancing irregular fluid collection within the left ventrolateral paraspinal soft tissues at T9-T10 (series 8, image 57). Additional rounded T2 bright foci are present within the left posterolateral paraspinal soft tissues (series 8, images 58-60). These measure up to 7 mm. The remainder of the thoracic spinal cord is normal in signal. No abnormal leptomeningeal enhancement. 8 mm T2 bright lesion within the visualized left lobe of the thyroid gland, which falls below size threshold for thyroid sonography recommendation. Nonspecific STIR bright signal of the posterior T1 vertebral body MRI OF THE LUMBAR SPINE Multiple images are degraded by patient motion which diminishes detail, and interpretation was madein light of this technical confine. A mild rightward curvature of the lumbar spine is present. Subtle retrolisthesis of L3 on L4 is noted. Heterogeneity of the marrow is present on the sagittal T1- weighted images. No marrow STIR hyperintensity is noted, and the facet joints are normal in signal. Multilevel loss of lumbar disc space height remains most pronounced at L3-L4 and L4-L5. Marginal osteophytes and facet arthroses are present at multiple levels. The visualized lower thoracic cord is normal in signal, and the conus terminates at L1. The lumbar epidural fluid collection is present, and there is no abnormal leptomeningeal enhancement. Central canal stenosis remains most pronounced at L3-L4 and L4-L5, but detail is degraded by motion. Foraminal stenoses at these levels are similar in appearance. No lumbar paraspinal fluid collection or abnormal paraspinal enhancement. IMPRESSION: 1. Progression of osteomyelitis/discitis at T9-T10 with new destruction of the T9 vertebral body. Nonenhancing fluid signal within the T9-T10 disc space is compatible with intradiscal abscess. Epidural phlegmon at T9 and T10 is present which severely narrows the spinal canal and compresses the thoracic spinal cord. Hazy T2 bright signal of the compressed cord is present. 2. Paraspinal phlegmon and left-sided paraspinal abscesses as detailed above. 3. No evidence of osteomyelitis/discitis or septic facet joint arthritis of the lumbar spine. 4. Nonspecific STIR bright signal of the posterior T1 vertebral body of indeterminate etiology. 5. Small bilateral pleural effusions. The findings regardings impressions #1 and #2 were discussed with BHAVESH Varela. 01/03/2023 at 4:53 PM. WSN: [id number] Ordering Physician: Yolis Sanabria Dictated By: Diego Georges MD Dictated Date/Time: 01/03/23 4:59 pm Reviewed By: Diego Georges MD Signed By: Diego Georges MD Signed Date/Time: 01/03/23 4:59 pm Transcribed By: JAIME Transcribed Date/Time: 01/03/23 4:26 pm Vital Signs Most recent to oldest [Reference Range]: 1 2 3 Height 175 cm (01/11/23 11:11 PM) 175 cm (01/11/23 8:01 PM) 175 cm (01/11/23 3:22 AM) Weight 77.5 kg (01/03/23 9:53 PM) Oxygen Saturation [94-100 %] 99 % (01/12/23 3:00 PM) 97 % (01/12/23 11:00 AM) 97 % (01/12/23 7:00 AM) Pulse Rate [55-90 bpm] 103 bpm *H* (01/12/23 3:00 PM) 104 bpm *H* (01/12/23 11:00 AM) 96 bpm *H* (01/12/23 7:00 AM) Body Mass Index [18.5-24.99 kg/m2] 25.31 kg/m2 *H* (01/03/23 9:53 PM) Blood Pressure [90-138/55-84 mm Hg] 154/80mm Hg *H* (01/12/23 3:00 PM) 142/86mm Hg *H* (01/12/23 11:00 AM) 135/75mm Hg (01/12/23 9:04 AM) Respiratory Rate [16-30 br/min] 18 br/min (01/12/23 3:21 PM) 16 br/min (01/12/23 3:00 PM) 18 br/min (01/12/23 11:00 AM) Temperature [96.8-100.4 DegF] 97.7 DegF (01/12/23 3:00 PM) 98.1 DegF (01/12/23 11:00 AM) 98.0 DegF (01/12/23 7:00 AM) Mode of Delivery (Oxygen) Room air (01/12/23 3:00 PM) Room air (01/12/23 11:00 AM) Room air (01/12/23 7:00 AM) Blood pressure sites Arm, left (01/12/23 3:00 PM) Arm, right (01/12/23 11:00 AM) Arm, right (01/12/23 7:00 AM) Temperature Route Oral (01/12/23 3:00 PM) Oral (01/12/23 11:00 AM) Oral (01/12/23 7:00 AM) Dry Weight 77.5 kg (01/03/23 9:53 PM) 77.5 kg (01/03/23 7:48 PM) 77.5 kg (01/03/23 1:12 AM) Dry Weight Obtained Via Patient/family s tated (01/03/23 12:45 AM) Social History Social History Type Response Smoking Status Former smoker; Type: Cigarettes; Started at age: 9; Stopped at age: 29; entered on: 08/25/14 Sex Consult note * Jazmyn Elizalde: PERFORM Jazmyn Elizalde: PERFORM, MODIFY Jazmyn Elizalde: MODIFY, SIGN Jazmyn Elizalde: SIGN, VERIFY Jazmyn Elizalde: VERIFY, MODIFY Event Display: Consultation Note Authored Date: [id number] Patient: LUIS ANGEL MIMS Age: 72 years Sex: Male : 1950 Associated Diagnoses: None Author: Jazmyn Elizalde [facility] Consultation Note Consulting Provider: Dr Rojas Reason for Consult: ROC History of Present Illness Luis Angel Mims is a 72 y/o M with a PMH of hypertension, hyperlipidemia, CAD, thoracic aortic aneurysm, erythrodermic psoriasis recently on adalimumab w/ recent admission 10/12-10/20 for MRSA bacteremia and T9-T10 osteomyelitis/discitis that was treated with vancomycin, ceftriaxone, dalbavancin x2 doses, and doxycycline x2 weeks who re-presented on 01/03 with worsening lower back pain. A repeat MRI shows progression of osteomyelitis/discitis at T9-T10 with new destruction of T9 vertebral body and paraspinal phlegmon which severely narrows the spinal canal and compressing the thoracic spinal cord. Neurosurgery recommends no acute surgical intervention at this time. Patient startedon IV ceftriaxone and vancomycin, s/p bone biopsy with IR on 01/05 for antibiotic tailoring, now onvancomycin only per ID. Pending biopsy results. Patient was dosed 1.25 gm of vancomycin BID on 01/06and on 01/07 was noted to have ROC with Cr increased from 0.6 mg/dL (baseline in system appears to be about 0.8 mg/dL) to 1.4 mg/dL and up to 1.8 mg/dL today. Per ID may consider changing to daptomycin. Of note patient also had mild hyponatremia on presentation that resolved with a fluid restriction. On my assessment, patient was resting comfortably reading newspaper. He endorsed a fair PO intake, drinking more than eating (only finishing about 50% of meals). He denies any hematuria. Does have difficulties with initiating micturition but does not have feelings of urinary retention. Patient has been bladder scanned multiple times without evidence of retention. No recent NSAID usage. Review of Systems Constitutional: No weight loss, fever, chills, weakness or fatigue. HEENT: No visual loss, blurred vision, double vision or yellow sclera. No hearing loss, sneezing, congestion, runny nose or sore throat. Skin: No rash or itching. Cardiovascular: No chest pain, chest pressure or chest discomfort. No palpitations or pedal edema. Respiratory: No shortness of breath, cough or sputum production. Gastrointestinal: Negative for nausea, vomiting & diarrhea. No abdominal pain or blood in stool. Genitourinary: No burning micturition. No urinary frequency or incontinence. Neurologic: No headache, dizziness, syncope, unilateral weakness, ataxia Musculoskeletal: + Back pain. No muscle pain, joint pain or stiffness. Hematologic: No bleeding or bruising. Lymphatics: No enlarged lymph nodes. Psychiatric: No depression or anxiety. Endocrine: No reports of sweating. No cold or heat intolerance. No polyuria or polydipsia. Health Status Allergies: Allergies (Active and Proposed Allergies Only) lisinopril (Severity: Unknown severity, Onset: Unknown) Reactions: Nausea penicillin (Severity: Unknown severity, Onset: Unknown) Comments: Rash Past Medical History: Esophagitis Tubular adenoma Borderline anemia Coronary artery calcification seen on CT scan Coronary artery disease Dyshidrotic eczema hands Dyspnea on exertion Erectile dysfunction Family history of prostate cancer brother Hypercholesterolemia Hypertension Moderate drinker of alcohol Nasal congestion Osteoarthritis of right knee Thoracic aortic aneurysm Medications: Amlodipine (amLODIPine 10 mg oral tablet) 10 Milligram 1 tablet By Mouth Daily Aspirin (aspirin 81 mg oral delayed release tablet) 81 Milligram 1 tablet By Mouth Daily for 30 Days Atorvastatin (atorvastatin 40 mg oral tablet) 1 tab(s) 40 Milligram By Mouth Daily for 30 Days replaces Simvastatin Bisoprolol-Hydrochlorothiazide (bisoprolol-hydrochlorothiazide 10 mg-6.25 mg oral tablet) 1 tab(s) By Mouth Daily Cyanocobalamin (Vitamin B12 1000 mcg oral tablet) 1 tab(s) 1,000 Microgram By Mouth Daily Ibuprofen (ibuprofen 800 mg oral tablet) 1 tablet By Mouth 3 times a day as needed for 14 Days NEEDED FOR MODERATE PAIN FOR Multivitamin (Super B Complex) 1 tab(s) By Mouth Daily Multivitamin With Minerals (multivitamin with minerals Multiple Vitamins with Minerals oral tablet)1 tab(s) By Mouth Daily Omeprazole (omeprazole 20 mg oral enteric coated capsule) 1 capsule 20 Milligram By Mouth Daily Social History: Alcohol Details: Use: Current. Frequency: Daily. Type: Beer. Other: Lately, no drinking beer during the week and on weekends 6-8 beers per day.. 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 Exercise Details: Regular exercise: Yes. Exercise frequency: 3-4 times/week. Exercise type: Walking. Home/Environment Details: Living situation: Home/Independent. Lives with: Spouse. Nutrition/Health Details: Diet: Regular. Caffeine intake amount: one coffee daily. Tobacco Details: Former smoker, Type: Cigarettes. Started at age: 9 Years. Stopped at age: 29 Years. Electronic Cigarette/Vaping Details: Electronic Cigarette Use: Never. Family History: Father: Depression; Suicide Brother (Ryland): Cancer of prostate Other (paternal uncle): Cancer of prostate Physical Examination Temperature 98.6 (15:11) Systolic Blood Pressure 137 (15:11) Diastolic Blood Pressure 82 (15:11) Pulse 92 (15:11) SpO2 98 (15:11) Respiratory Rate 17 (15:11) General: No acute distress HEENT: EOMI, mucous membranes moist CV: Regular rate and rhythm. No murmurs, gallops, rubs Respiratory: All black clear to auscultation bilaterally. No wheezes, rales, rhonchi Abdominal: Soft, nontender. Bowel sounds noted Extremities: No lower extremity edema. Neuro: AAO x3. Results Review General results Today's results 01/08/2023 1:41 EDT WBC 8.5 k/mm3 RBC 4.09 m/mm3 L Hgb 11.6 Gm/dL L Hct 34.9 % L MCV 85.3 femtoliters MCH 28.4 pg MCHC 33.2 g/dL Platelet Count 261 k/mm3 RDW-SD 39.9 femtoliters MPV 8.9 femtoliters L Nucleated RBC (Automated) 0.0 #/100 WBC'S Abs. NRBC 0.0 k/mm3 Sodium 133 mmol/L Potassium 4.1 mmol/L Chloride 91 mmol/L L Bicarbonate Level 27 mmol/L Anion Gap 15 Glucose Level 121 mg/dL H BUN 22 mg/dL Creatinine-Blood 1.8 mg/dL H Estimated GFR Creatinine 38 ML/MIN/1.73 M2 Calcium 10.0 mg/dL Phosphorus 5.1 mg/dL H Magnesium 1.8 mg/dL Impression and Plan Luis Angel Mims is a 72 y/o M with a PMH of hypertension, hyperlipidemia, CAD, thoracic aortic aneurysm, erythrodermic psoriasis recently on adalimumab w/ recent admission 10/12-10/20 for MRSA bacteremia and T9-T10 osteomyelitis/discitis that was treated with vancomycin, ceftriaxone, dalbavancin x2 doses, and doxycycline x2 weeks who re-presented on 01/03 with worsening lower back pain. A repeat MRIshowed worsening of osteomyelitis for which he was started on vancomycin therapy and ID was consulted. Renal consulted for ROC. 1. ROC Bl Cr 0.8 mg/dL Cr currently up to 1.8 mg/dL Patient likely has ATN from vancomycin injury as trough was noted to be elevated 01/07 which is alsowhen ROC was noted Given infection a post-infectious GN could be possible, UA was bland on admission which would go against this but will repeat UA and obtain complements Bladder scans do not show retention but will also obtain US Plan: - Switch from vanco to dapto if possible - Renal US ordered, continue with bladder scans - F/u urine lytes, protein, and UA - F/u complements - Monitor I&O - Renal panel daily Thank you for the courtesy of this consult, RTANE will continue monitoring the patient along with you. Please do not hesitate to call us with any further questions Jazmyn Gan PA-C [facility], [address], [address] Available by [facility] * Shon Fleming MD: PERFORM Event Display: Consultation Note Authored Date: Seen and examined, case d/w renal PA and agree with her assessment and rec as noted * Sylvia Otero MDam: MODIFY, MODIFY, MODIFY, PERFORM Event Display: Consultation Note Authored Date: [id number] Patient: ??MIMS, LUIS ANGEL ? Age:??72 Years?Sex:??Male?:??1950?? Chief Complaint/Reason for Consultation Reason of consult: Recurrent OM Consulting physician: Dr.DelPilar- Chris MD Requesting physician: MD Mariam History of Present Illness This is a 72 years old male with past medical history of erythrodermic psoriasis (Humira on October 06), R TKA, thoracic aortic aneurysm, coronary disease, hypertension, dyslipidemia who presented to the hospital via ED with complaints of back pain. ?? Patient was previously admitted to the hospital from 10/12-10/20 with worsening back pain.?? He was found to have MRSA bacteremia that is complicated by T9-T10 discitis/osteomyelitis.?? Received inpatient vancomycin and ceftriaxone until clearance.?? He was discharged on dalbavancin due to concern of placing PICC line on an eczematous skin.?? He (received first dose inpatient) with plan to completetotal of 3 doses following discharge.?? Following discharge, he presented to the ED on 10/22 with back pain.?? Lab work- up at that time notable for leukocytosis of 16.5.?? ID was consulted and advised to follow-up outpatient with them with recommendations to obtain cultures.?? Blood cultures were negative and patient followed up with ID on 11/07.?? He was noted to have muscular back pain but otherwise no red flag symptoms.?? He was discharged with recommendations to complete 3 doses of dalbavancin and subsequently to start doxycycline 100 mg twice daily on 11/22 for total of 2 weeks. ?? After starting doxycycline, he continued to have back pain and presented to the ED on 11/09.?? CT abdomen and pelvis was done which did not reveal any acute abnormality but mild degenerative changes ofthe lumbar spine pronounced at the L3-L4.?? At the hip x-ray with no abnormality.?? And was discharged to follow-up with PCP. ?? He presented again on 01/03 for evaluation of worsening back pain.?? He is vitally stable.?? Lab work-up remarkable for WBC of 9.9 with neutrophilic predominance, sed rate of 47 from 16 during previous admission, CRP of 2.9 from 2.4 on 10/21.?? Negative UA.?? MRI lumbar spine and thoracic spine obtained which showed progression of osteomyelitis/discitis at T9-T10 with new destruction of the T9 vertebral body.?? With evidence of nonenhancing fluid signal within the T9-T10 disc space compatible with intradiscal abscess.?? Epidural phlegmon at T9 and T10 is present with severe narrowing of the spinal canal and compression of the thoracic spinal cord.?? He has a T2 bright signal was of the compressed cord was present.?? Neurosurgery was consulted with no recommendation for surgical intervention.?? They recommended antibiotic treatment and ID consultation.?? The patient was started empirically on ceftriaxone 1 g and received 1 dose of vancomycin in the ED. Review of Systems Review of systems is negative except for symptoms mentioned above.?? Objective Vital Signs?? Temperature: 97.3 DegF (01/04/23 08:00:00) Temperature Route: Oral (01/04/23 08:00:00) Pulse Rate:??92 bpm??High (01/04/23 08:38:00) Respiratory Rate: 18 br/min (01/04/23 08:29:00) Systolic Blood Pressure:??162 mm Hg??High (01/04/23 08:38:00) Diastolic Blood Pressure:??91 mm Hg??High (01/04/23 08:38:00) Blood pressure sites: Arm, right (01/04/23 08:38:00) Mean Arterial Pressure: 115 mm Hg (01/04/23 08:38:00) Pulse Pressure: 71 mm Hg (01/04/23 08:38:00) Oxygen Saturation: 95 % (01/04/23 08:38:00) Mode of Delivery (Oxygen): Room air (01/04/23 08:38:00) Early Warning Score: 6 (01/04/23 08:52:41) ? Physical Exam Recent Vital Signs Temperature: 98 DegF (01/04/23 11:25:00) Pulse Rate:??104 bpm??High (01/04/23 11:25:00) Respiratory Rate: 18 br/min (01/04/23 14:42:00) Systolic Blood Pressure: 138 mm Hg (01/04/23 11:25:00) Diastolic Blood Pressure:??87 mm Hg??High (01/04/23 11:25:00) Oxygen Saturation: 95 % (01/04/23 11:25:00)? General Appearance: The patient is well and in NAD. Cardiovascular: RRR S1 and S2 heard with no M/R/G. No JVD. Respiratory: ??Breath sounds clear to auscultation bilaterally. No wheezing. Good air movement throughout both lungs. GI: Soft. Nontender and nondistended. Normal bowel sounds present throughout abdomen.?? MS:?Scaling in upper and lower extremities of legs/arms. Neuro: ??No slurred speech. ??Patient seen moving their upper and lower extremities independently. Psych: Alert and oriented x3. Appropriate and pleasant. CAM negative, Lines: Peripheral IV in place.?? Assessment/Plan This is a 72 years old male with past medical history of erythrodermic psoriasis (started rituximabinfusions on October 06), R TKA, thoracic aortic aneurysm, coronary disease, hypertension, dyslipidemia who presented to the hospital via ED with complaints of back pain progression of osteomyelitis/discitis at T9-T10 with new destruction of the T9 with intradiscal abscess, epidural phlegmon.? Recurrent??T9-T10 osteomyelitis New destruction of T9 vertebral body T9-T10 intradiscal abscess Epidural phlegmon T9 and T10 Patient most likely has??relapse of??osteomyelitis. ??It is unlikely that he has??failed??previous??antibiotics given that his inflammatory markers??went down following initiation of??antibiotic therapy during his last admission.?It is less likely that he has a new??osteomyelitis in the absence of??new predisposing risk factors. In all cases, he will need bone biopsy??and??consideration of IR guided drain of phlegmon to confirm??that he has the same??bacterial infection with MRSA causing osteomyelitis. If??this can be facilitated tomorrow, would hold off antibiotics to??hopefully improve the yield.??However, if??this cannot be obtained??by tomorrow would not delay initiation of antibiotics given??the severe narrowing of the spinal canal and compression of thoracic spinal cord??noted on imaging. ?? Recommendations: -Bone biopsy??tomorrow -Hold antibiotics if bone biopsy can be obtained tomorrow, otherwise??start on??vancomycin??and??ceftriaxone??if??any delay anticipated ?? Recommendations communicated to primary team. ?? This patient was discussed with ?? Sarah Otero MD PGY-3 Internal Medicine Cortext / pg#[id number] ?? Histories Allergies Allergies ?(Active and Proposed [...] weekends 6-8 beers per day.. 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 Exercise Details:??Regular exercise: Yes. ??Exercise frequency: 3-4 [...] (Vitamin B12 1000 mcg oral tablet)?1?tab(s)?1,000?Microgram?By Mouth?Daily Ibuprofen (ibuprofen 800 mg oral tablet)?1?tablet?By Mouth?3 times a day?as needed?for 14?Days? NEEDED FOR MODERATE PAIN FOR Multivitamin (Super B Complex)?1?tab(s)?By Mouth?Daily Multivitamin With Minerals (multivitamin with minerals Multiple Vitamins with Minerals oral tablet)?1?tab(s)?By Mouth?Daily Omeprazole (omeprazole 20 mg oral enteric coated capsule)?1?capsule?20?Milligram?By Mouth?Daily ? Results Recent Labs BLOOD COUNT & DIFF WBC 7.1 k/mm3 ()?? 01/04/2023 07:28 RBC 3.98 m/mm3 (Low)?? 01/04/2023 07:28 Hgb 11.4 Gm/dL (Low)?? 01/04/2023 07:28 Hct 34.2 % (Low)?? 01/04/2023 07:28 MCV 85.9 femtoliters ()?? 01/04/2023 07:28 MCH 28.6 pg ()?? 01/04/2023 07:28 MCHC 33.3 g/dL ()?? 01/04/2023 07:28 Platelet Count 276 k/mm3 ()?? 01/04/2023 07:28 RDW-SD 41.4 femtoliters ()?? 01/04/2023 07:28 MPV 8.8 femtoliters (Low)?? 01/04/2023 07:28 Nucleated RBC (Automated) 0.0 #/100 WBC'S ()?? 01/04/2023 07:28 Abs. NRBC 0.0 k/mm3 ()?? 01/04/2023 07:28 Abs. Neut 4.9 k/mm3 ()?? 01/04/2023 07:28 Abs. Lymph 1.0 k/mm3 ()?? 01/04/2023 07:28 Abs. [place] 1.0 k/mm3 ()?? 01/04/2023 07:28 Abs. Eo 0.2 k/mm3 ()?? 01/04/2023 07:28 Abs. Baso 0.1 k/mm3 ()?? 01/04/2023 07:28 Neut % 68.8 % ()?? 01/04/2023 07:28 Lymph % 13.7 % (Low)?? 01/04/2023 07:28 [place] % 13.3 % (High)?? 01/04/2023 07:28 Eos % 2.5 % ()?? 01/04/2023 07:28 Baso % 1.3 % ()?? 01/04/2023 07:28 Imm Gran 0.4 % ()?? 01/04/2023 07:28 Abs. Imm Gran 0.0 k/mm3 ()?? 01/04/2023 07:28 ?? CHEM GENERAL Sodium 129 mmol/L (Low)?? 01/03/2023 03:25 Potassium 4.1 mmol/L ()?? 01/03/2023 03:25 Chloride 89 mmol/L (Low)?? 01/03/2023 03:25 Bicarbonate Level 26 mmol/L ()?? 01/03/2023 03:25 Anion Gap 14 ()?? 01/03/2023 03:25 Glucose Level 105 mg/dL (High)?? 01/03/2023 03:25 BUN 17 mg/dL ()?? 01/03/2023 03:25 Creatinine-Blood 1.0 mg/dL ()?? 01/03/2023 03:25 Estimated GFR Creatinine 85 ML/MIN/1.73 M2 ()?? 01/03/2023 03:25 Lactate 0.9 mmol/L ()?? 01/03/2023 03:25 C-Reactive Protein 2.9 mg/dL (High)?? 01/03/2023 03:25 ?? HEME OTHER Sed Rate 47 mm/hr (High)?? 01/03/2023 03:25 ?? UA/URINALYSIS Appear/Color, Urine COLORLESS ()?? 01/03/2023 07:15 Clarity CLEAR ()?? 01/03/2023 02:22 Specific [place], Urine 1.007 ()?? 01/03/2023 07:15 pH, Urine 6.5 ()?? 01/03/2023 07:15 Albumin, Urine NEGATIVE ()?? 01/03/2023 07:15 Glucose, Urine NEGATIVE ()?? 01/03/2023 07:15 Ketones, Urine NEGATIVE ()?? 01/03/2023 07:15 Bilirubin, Urine NEGATIVE ()?? 01/03/2023 07:15 Hemoglobin, Urine NEGATIVE ()?? 01/03/2023 07:15 Nitrite, Urine NEGATIVE ()?? 01/03/2023 07:15 Leukocyte, Urine NEGATIVE ()?? 01/03/2023 07:15 Urobilinogen NORMAL mg/dL ()?? 01/03/2023 07:15 WBC's, Urine NONE SEEN /HPF ()?? 01/03/2023 07:15 RBC's, Urine <1 /HPF ()?? 01/03/2023 07:15 Mucus SLIGHT /LPF ()?? 01/03/2023 02:22 Hold Urine Culture Testing available 48 hours from time of collection. ()?? 01/03/2023 07:15 Culture Indication CULTURE NOT INDICATED ()?? 01/03/2023 02:22 ?? URINE OTHER Est Creatinine Clearance 65.57 mL/min ()?? 01/03/2023 04:20 ?? VIROLOGY COVID-19 by RT-PCR NEGATIVE ()?? 01/03/2023 17:42 ? Abnormal Labs ?? BLOOD COUNT & DIFF ??Abs. NRBC ??0.0 k/mm3 () ??01/04/2023 07:28 ??Abs. Imm Gran ??0.0 k/mm3 () ??01/04/2023 07:28 ??Hct ??34.2 % (Low) ??01/04/2023 07:28 ??Hgb ??11.4 Gm/dL (Low) ??01/04/2023 07:28 ??Imm Gran ??0.4 % () ??01/04/2023 07:28 ??Lymph % ??13.7 % (Low) ??01/04/2023 07:28 ??MPV ??8.8 femtoliters (Low) ??01/04/2023 07:28 ??[place] % ??13.3 % (High) ??01/04/2023 07:28 ??Nucleated RBC (Automated) ??0.0 #/100 WBC'S () ??01/04/2023 07:28 ??RBC ??3.98 m/mm3 (Low) ??01/04/2023 07:28 ??RDW-SD ??41.4 femtoliters () ??01/04/2023 07:28 ? VIROLOGY ??COVID-19 by RT-PCR ??NEGATIVE () ??01/03/2023 17:42 ? Note: Critical results are displayed in red. ? LFT?? No qualifying data available. ?? Urinalysis?? No qualifying data available. ?? * Tony AUGUSTE, Moody Belle: PERFORM Event Display: Consultation Note Authored Date: [id number] ATTENDING ADDENDUM: Patient evaluated and discussed with resident physician Dr. Otero.?? Reviewed history, physical exam, and assessment.?? Agree with findings and recommendations.?? Patient with what seems to be a relapse of the spinal osteomyelitis, findings on MRI but significantly worse compared to previous ones.?? Infection seems to be fairly well localized, likely likelihood of that blood cultures are positivequite low.?? Because of this, would want to seek biopsy for cultures.?? Although I suspect the organism is the same, I am more concerned about potential development of resistance that might limit ouroral options.?? Because of this would want the patient to undergo biopsy for cultures so we can have the information and make decisions based on that.?? If this could be done within the next 24 hours, concernedly hold antibiotics until that time.?? However if he were to begin to take longer, suggested the patient be started on antibiotic therapy with vancomycin, possibly combined with ceftriaxone.?? Perhaps the ceftriaxone is not absolutely needed, some studies do show that the patient's with MRSA, particular bacteremias, combination with a beta-lactam does seem to hasten the resolution of infection.?? Although I am extrapolating this from bacteremia papers, given recurrence suspect patientmay gain some benefit.?? We will monitor closely. * Stephy Byers MD: PERFORM, SIGN, VERIFY Event Display: Consultation Note Authored Date: [id number] Patient: LUIS ANGEL MIMS Age: 72 years Sex: Male : 1950 Associated Diagnoses: None Author: Stephy Byers MD Patient seen and examined, imaging and chart reviewed, patient was seen at [facility] recently and was sent to [facility]. Patient has a known history of bacteremia with discitis. ID was involved. Neurosurgery was not consulted on this patient. Apparently according to themedical record Orthopedics did not return the call last night so I stepped in to help with managingcare. On exam now, patient complains of pain but has 5 out of 5 strength and downgoing toes. MRI shows progression of discitis osteomyelitis with stenosis and an epidural phlegmon in the lower thoracic spine. This is not curable with neurosurgical intervention and the patient would not be a candidate for thoracicoabdominal approach and multilevel corpectomy with posterior fusion. I think that would be a ridiculous idea. He needs to remain off Humira with intensive infectious disease input and therapy. He will require long-term antibiotics, potentially lifelong antibiotics. We will continue to monitor the patient closely. The only role for neurosurgical intervention would be in the event of neurologic decline. Please call me directly if you have any questions * Magda OSPINA, Maryjane Dorantes: PERFORM, MODIFY Event Display: Consult Authored Date: [id number] Patient: ??LUIS ANGEL MIMS ? Age:??72 Years?Sex:??Male?:??1950?? Chief Complaint/Reason for Consult ?Neurosurgery Consult Note?Reason for consult:??T9/10 osteomyelitis, discitis ?Attending Neurosurgeon:??Dr. Byers ?Consult Requested: ED History of Present Illness This is a 72-year-old male??with history of??psoriasis on Humira,??CAD, hypercholesteremia,??hypertension??who presented to the emergency department for worsening back pain.?? He was previously diagnosed??with staph bacteremia and possible T9-10 osteomyelitis/discitis after receiving Humira injection 5 days earlier on 10/11/2022. ??It does not appear that neurosurgery was consulted at that time. ??He was placed on ceftriaxone and vancomycin and eventually discharged outpatient on??dalbavancin with infectious disease follow-up. ??Patient reports that he completed his course of antibiotics and there was no further follow-up required from infectious disease. ??He also reports that he saw [facility] for left knee pain and he mentioned his low back pain. ??He states that they sent him to [facility] in [facility] for evaluation of his back pain and it was reported that they had ordered MRI to evaluate pain. ??He reports that since the onset of his back pain on October 08, he has had ap proximately 3 days where he was pain-free which was when he is in the hospital receiving antibiotics. ??Reports since being discharged from the hospital in middle of October he has continued to have mid back pain that radiates out to his sides. ??He states over the past 3 weeks his back pain has becomeincreasingly severe to the point where he was unable to ambulate because of the pain today prompting his visit to the ED. ??He reports that the back pain has continued to be in the middle of his backand has not changed in location. ??It does radiate out to the sides. ??He does report that since the onset of his back pain he has had urgency to urinate however when he gets to the bathroom he is unable to void and it will take a few moments before he is able to initiate his stream. ??He denies saddle anesthesias, numbness/tingling of extremities, weakness of extremities, pain in extremities. Review of Systems General: denies fever, chills, fatigue Cardiac: denies chest pain?? Pulmonary: denies SOB?? GI: Denies bowel incontinence : denies bladder retention, incontinence?? Musculoskeletal: denies myalgias Neurologic: denies headache, lightheadedness, dizziness, paresthesias, weakness?? Physical Exam Vitals & Measurements T:??98?F?? HR:??91??(Peripheral)?? RR:??18?? BP:??154/86?? SpO2:??97%?? HT:??175??cm?? General: appears stated age, awake, alert, and NAD HEENT: NC/AT, trachea midline Respiratory: Normal I:E Extremities: symmetric, no edema, no calf tenderness Skin: Warm, dry Neurologic: Mental status ?Awake, alert oriented to location, date and self ?Speech clear, fluent appropriate ?Follows simple and complex commands CN ?EOMI, PERRL, no nystagmus ?No focal weakness ?Sensation intact ?Tongue midline ?Should shrug 5/5 Motor ?Normal bulk and tone ?Upper Extremities ?Deltoid:?5/5 R?5/5 L ?Triceps:?5/5 R?5/5 L ?Biceps:?5/5 R?5/5 L ?Wrist Ext:?5/5 R?5/5 L ?Hand residential assistant:?5/5 R?5/5 L ?Lower Extremities ?Hip Flexion:?5/5 R?5/5 L ?Knee Extension:?5/5 R?5/5 L ?Plantar Flexion:? 5/5 R?5/5 L ?Dorsiflexion:?5/5 R?5/5 L ?EHL:?5/5 R?5/5 L Sensation Intact to light touch throughout upper and lower extremities Reflexes difficulty with testing clonus??d/t patient?? toes mute Assessment/Plan This is a 72-year-old male??with history of??psoriasis on Humira,??CAD, hypercholesteremia,??hypertension??who presented to the emergency department for worsening back pain.?? He was previously diagnosed??with staph bacteremia and possible T9-10 osteomyelitis/discitis after receiving Humira injection 5 days earlier on 10/11/2022. ??It does not appear that neurosurgery was consulted at that time. ??He was placed on ceftriaxone and vancomycin and eventually discharged outpatient on??dalbavancin with infectious disease follow-up.?? He returns today with 3 weeks of worsening back pain??that eventually became so severe he had difficulty ambulating due to the pain.?? Documented that??patient was pending MRI of the spine??after he was??evaluated by [facility] in November and??[facility] was contacted however??emergency department did not hear back.?? On exam, patient has nofocal neurologic deficits.?? MRI of the thoracic spine showing progression of osteomyelitis discitis at T9-10??with new destruction of the T9 vertebral body and??associated epidural phlegmon causing??central stenosis.?? Given that patient remains neurologically intact, there is no surgical intervention??that could??be offered to improve??patient's current condition or pain.?? Recommend consultinginfectious disease for further medical management of osteomyelitis/discitis. ?? Recommendations: No acute neurosurgical intervention Every 4 hours neurochecks Obtain PVRs Consult ID Optimize pain control Neurosurgery will continue to follow ?Please page [phone] with any questions or concerns. ?Images and case discussed??with neurosurgery attending, Dr. Byers. Problem List/Past Medical History Ongoing Borderline anemia Coronary artery calcification seen on CT scan Coronary artery disease Dyshidrotic eczema hands Dyspnea on exertion Erectile dysfunction Esophagitis Family history of prostate cancer brother Hypercholesterolemia Hypertension Moderate drinker of alcohol Nasal congestion Osteoarthritis of right knee Thoracic aortic aneurysm Tubular adenoma Procedure/Surgical History EGD - Esophagogastroduodenoscopy: 06/29/19 History of right total knee replacement: 08/16/17 Colonoscopy, flexible, proximal to splenic flexure; diagnostic, with or without collection of specimen(s) by brushing or washing, with or without colon decompression (separate procedure): 08/10/17 EGD and colonoscopy: 05/13/12 History of tonsillectomy: 4 EGD 15 yrs ago Home Medications Amlodipine: 10 mg = 1 tablet, By Mouth, Daily Aspirin: 81 mg = 1 tablet, By Mouth, Daily Atorvastatin: 40 mg = 1 tablet, By Mouth, Daily, replaces Simvastatin Bisoprolol-Hydrochlorothiazide: 1 tablet, By Mouth, Daily Cyanocobalamin: 1,000 mcg = 1 tablet, By Mouth, Daily Ibuprofen: 1 tablet, By Mouth, 3 times a day, PRN ( NEEDED FOR MODERATE PAIN FOR) Multivitamin: 1 tablet, By Mouth, Daily Multivitamin With Minerals: 1 tablet, By Mouth, Daily Omeprazole: 20 mg = 1 capsule, By Mouth, Daily Allergies lisinopril??(Nausea) penicillin Social History Alcohol Use: Current. Frequency: Daily. Type: Beer. Other: Lately, no drinking beer during the week and on weekends 6-8 beers per day.. Electronic Cigarette/Vaping Electronic Cigarette Use: Never. 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 Exercise Regular exercise: Yes. Exercise frequency: 3-4 times/week. Exercise type: Walking. Home/Environment Living situation: Home/Independent. Lives with: Spouse. Nutrition/Health Diet: Regular. Caffeine intake amount: one coffee daily. Tobacco Former smoker, Type: Cigarettes. Started at age: 9 Years. Stopped at age: 29 Years. Family History Father: Depression; Suicide Brother (Ryland): Cancer of prostate Other (paternal uncle): Cancer of prostate Radiology Imaging personally reviewed. Radiology impression provided below:? RESULT: MRI Thoracic Spine W+W/O Contrast ?? IMPRESSION: ?? 1. Progression of osteomyelitis/discitis at T9-T10 with new destruction of the T9 vertebral body. Nonenhancing fluid signal within the T9-T10 disc space is compatible with intradiscal abscess. Epidural phlegmon at T9 and T10 is present which severely narrows the spinal canal and compresses the thoracic spinal cord. Hazy T2 bright signal of the compressed cord is present.? 2. Paraspinal phlegmon and left-sided paraspinal abscesses as detailed above. ?? 3. No evidence of osteomyelitis/discitis or septic facet joint arthritis of the lumbar spine. ?? 4. Nonspecific STIR bright signal of the posterior T1 vertebral body of indeterminate etiology. ?? 5. Small bilateral pleural effusions. ?? Admission evaluation note * Ash AUGUSTE, Kaiser Modi: PERFORM Event Display: Admission Note Authored Date: [id number] Patient: ??LUIS ANGEL MIMS ? Age:??72 Years?Sex:??Male?:??1950?? Chief Complaint/Reason for Consultation back pain History of Present Illness Mr. Mims is a 72 year old gentleman with a PMH of hypertension, hyperlipidemia, CAD, thoracic aortic aneurysm, erythrodermic psoriasis recently on adalimumab w/recent MRSA bacteremia and thoracic osteomyelitis/discitis who presents again with worsening lower back pain. ?? Patient was recently hospitalized 10/12 - 10/20 with acute lower back pain found to have MRSA bacteremia and MRI imaging concerning for T9-10 discitis/osteomyelitis, no cord compression.?? KARINA did not show any vegetation.?? He was initially treated with vancomycin and ceftriaxone and discharged with dalbavancin (got 2 doses) and then completed 2 weeks of doxycycline after following up with ID in clinic 11/07.?? Initial plan was to treat with vancomycin via PICC line however given his severe psoriasis, ID was worried about high chances of PICC line associated site infection and thus decided to complete the treatment with 2 doses of dalbavancin.?? He received a dose of 1500 mg prior to discharge on 10/20 and the second dose was given as a home infusion on 10/27.?? Patient states that he did not miss any doses of his doxycycline.?? Patient states that he has not had any further Humira infusions s grazyna his last hospitalization.?? His last infusion was 5 days prior to the last hospitalization.? His back pain returned within 4 days of discharge.?? He followed up with Ortho and says that he [facility] where he is unsure what was done but he did not receive any injections orany further surgeries.?? Per documentation from Ortho I plan for him to get an MRI of the spine which has not yet been scheduled.?? Patient currently denies incontinence, weakness of extremities, saddle anesthesia, fever, chills, chest pain/abdominal pain/diarrhea/constipation. ?? On arrival to the ER he was hemodynamically stable.?? Labs showed WBC 9.9, Hb 12, sodium 129, bicarb 26, creatinine 1, lactate 0.9, CRP 2.9, ESR 47, unremarkable urinalysis.?? MRI showed progression of osteomyelitis/discitis at T9-T10 with new destruction of T9 vertebral body and paraspinal phlegmon which severely narrows the spinal canal and compressing the thoracic spinal cord.?? Neurosurgery was consulted and recommend every 4h neurochecks and serial PVRs, no acute surgical intervention, medical management, however discussed with patient that he may ultimately require surgical intervention.?? Review of Systems All systems reviewed and negative except as indicated in HPI. Objective Vital Signs?? Temperature: 98.6 DegF (01/03/23 21:53:00) Temperature Route: Oral (01/03/23 21:53:00) Pulse Rate:??91 bpm??High (01/03/23 21:30:00) Respiratory Rate: 18 br/min (01/03/23 22:11:00) Systolic Blood Pressure:??152 mm Hg??High (01/03/23 21:53:00) Diastolic Blood Pressure: 84 mm Hg (01/03/23 21:53:00) Blood pressure sites: Arm, right (01/03/23 21:53:00) Mean Arterial Pressure: 107 mm Hg (01/03/23 21:53:00) Pulse Pressure: 68 mm Hg (01/03/23 21:53:00) Oxygen Saturation: 97 % (01/03/23 21:30:00) Mode of Delivery (Oxygen): Room air (01/03/23 21:30:00) Early Warning Score: 2 (01/03/23 22:20:11) ? Intake/Output? No Data Available ? Physical Exam Constitutional: Alert, in no acute distress. Head EENT: Extraocular muscle movement intact.??Moist mucous membranes.?? Neck: Supple. No JVD. Respiratory: Clear to auscultation. No wheezing or crackles. No use of accessory muscles. Cardiovascular: S1S2 regular. No murmurs, rubs or gallops. Gastrointestinal: Abdomen soft, non-tender, non-distended. Normal bowel sounds. Genitourinary: No CVA tenderness. Extremities: No lower extremity pitting??edema. No cyanosis or clubbing. Neurologic: AAOx3, Speech normal. No focal neurological deficits. Mild tenderness to palpation lower central back. Skin: No rash. Psychiatric: Normal mood and affect Assessment/Plan Diagnoses Lumbar back pain ??(M54.50) 1. ??Osteomyelitis of thoracic spine ??(M46.24) 2. ??Discitis thoracic region ??(M46.44) 3. ??Coronary artery disease ??(I25.10) 4. ??Hypertension ??(I10) 5. ??Hypercholesterolemia ??(E78.00) 6. ??Psoriasis ??(L40.9) ?? Osteomyelitis of thoracic spine (M46.24): Discitis thoracic region (M46.44):? Progression since last hospitalization In setting of Humira infusions/immunocompromised state and MRSA bacteremia MRI showed progression of osteomyelitis/discitis at T9-T10 with new destruction of T9 vertebral body and paraspinal phlegmon which severely narrows the spinal canal and compressing the thoracic spinal cord No clinical evidence of acute cord compression Prior KARINA negative for vegetation s/p 2 doses of dalbavancin and 2 weeks of doxycycline which patient states he did not miss a dose of - continue Vancomycin and Ceftriaxone for further management of bacteremia??worsenig osteomyelitis - f/u blood cultures - consult ID since patient completed prior course of vanc/ceftriaxone/dalbavancin/doxycycline w/worsening infection - neurosurgery on board, appreciate recs - q4h neuro checks - monitor PVRs w/each void, check bladder scan if no void w/in 6 hrs - per NSG, hold DVT ppx for now, can have diet and ambulate etc ?? Coronary artery disease (I25.10):?? Hypertension (I10):?? Hypercholesterolemia (E78.00):? - C/w statin - Resume home Amlodipine ?? Psoriasis (L40.9):? Previously on immunotherapy with Humira injections, last ~10/15/22 - stable ??- f/u with Dermatology ?? Code status: full DVT ppx:??SCDs Diet: regular Dispo: floors ?? Total Visit Time: I personally spent a total of 80 minutes, including both [id number] and gck-qwbi-gx-face time on the date of the encounter, addressing the above diagnoses. Activities performed in this time include chart review, obtaining / reviewing history, performing amedically necessary evaluation, documentation and counseling. ?? Kaiser Aleman MD Food Service Ambassador 7p-7a After 7 am please contact day time provider for questions/consult updates. ? Histories Past Medical History/Problem List Active Problems??(15) Borderline [...] weekends 6-8 beers per day.. 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 Exercise Details:??Regular exercise: Yes. ??Exercise frequency: 3-4 [...] (Vitamin B12 1000 mcg oral tablet)?1?tab(s)?1,000?Microgram?By Mouth?Daily Ibuprofen (ibuprofen 800 mg oral tablet)?1?tablet?By Mouth?3 times a day?as needed?for 14?Days? NEEDED FOR MODERATE PAIN FOR Multivitamin (Super B Complex)?1?tab(s)?By Mouth?Daily Multivitamin With Minerals (multivitamin with minerals Multiple Vitamins with Minerals oral tablet)?1?tab(s)?By Mouth?Daily Omeprazole (omeprazole 20 mg oral enteric coated capsule)?1?capsule?20?Milligram?By Mouth?Daily ? Inpatient Medications Medications (10) Active SCHEDULED: (2) Ceftriaxone 1 Gm Inj (Ceftriaxone Inj) ??1 Gm, IVPB, Every 24 hours NaCl 0.9% Flush 3ml (NaCL 0.9% Flush) ??3 mL, IV Push, Every 8 hours CONTINUOUS: (0) PRN: (8) Acetaminophen 325 mg Tablet (Acetaminophen Tablet) ??650 [...] Recent Labs BLOOD COUNT & DIFF WBC 9.9 k/mm3 ()?? 01/03/2023 03:25 RBC 4.13 m/mm3 (Low)?? 01/03/2023 03:25 Hgb 12.0 Gm/dL (Low)?? 01/03/2023 03:25 Hct 35.1 % (Low)?? 01/03/2023 03:25 MCV 85.0 femtoliters ()?? 01/03/2023 03:25 MCH 29.1 pg ()?? 01/03/2023 03:25 MCHC 34.2 g/dL ()?? 01/03/2023 03:25 Platelet Count 265 k/mm3 ()?? 01/03/2023 03:25 RDW-SD 41.6 femtoliters ()?? 01/03/2023 03:25 MPV 8.7 femtoliters (Low)?? 01/03/2023 03:25 Nucleated RBC (Automated) 0.0 #/100 WBC'S ()?? 01/03/2023 03:25 Abs. NRBC 0.0 k/mm3 ()?? 01/03/2023 03:25 Abs. Neut 7.7 k/mm3 (High)?? 01/03/2023 03:25 Abs. Lymph 1.2 k/mm3 ()?? 01/03/2023 03:25 Abs. [place] 0.9 k/mm3 ()?? 01/03/2023 03:25 Abs. Eo 0.1 k/mm3 ()?? 01/03/2023 03:25 Abs. Baso 0.1 k/mm3 ()?? 01/03/2023 03:25 Neut % 77.3 % (High)?? 01/03/2023 03:25 Lymph % 11.7 % (Low)?? 01/03/2023 03:25 [place] % 8.6 % ()?? 01/03/2023 03:25 Eos % 1.1 % ()?? 01/03/2023 03:25 Baso % 0.6 % ()?? 01/03/2023 03:25 Imm Gran 0.7 % ()?? 01/03/2023 03:25 Abs. Imm Gran 0.1 k/mm3 ()?? 01/03/2023 03:25 ?? CHEM GENERAL Sodium 129 mmol/L (Low)?? 01/03/2023 03:25 Potassium 4.1 mmol/L ()?? 01/03/2023 03:25 Chloride 89 mmol/L (Low)?? 01/03/2023 03:25 Bicarbonate Level 26 mmol/L ()?? 01/03/2023 03:25 Anion Gap 14 ()?? 01/03/2023 03:25 Glucose Level 105 mg/dL (High)?? 01/03/2023 03:25 BUN 17 mg/dL ()?? 01/03/2023 03:25 Creatinine-Blood 1.0 mg/dL ()?? 01/03/2023 03:25 Estimated GFR Creatinine 85 ML/MIN/1.73 M2 ()?? 01/03/2023 03:25 Lactate 0.9 mmol/L ()?? 01/03/2023 03:25 C-Reactive Protein 2.9 mg/dL (High)?? 01/03/2023 03:25 ?? HEME OTHER Sed Rate 47 mm/hr (High)?? 01/03/2023 03:25 ?? UA/URINALYSIS Appear/Color, Urine COLORLESS ()?? 01/03/2023 07:15 Clarity CLEAR ()?? 01/03/2023 02:22 Specific [place], Urine 1.007 ()?? 01/03/2023 07:15 pH, Urine 6.5 ()?? 01/03/2023 07:15 Albumin, Urine NEGATIVE ()?? 01/03/2023 07:15 Glucose, Urine NEGATIVE ()?? 01/03/2023 07:15 Ketones, Urine NEGATIVE ()?? 01/03/2023 07:15 Bilirubin, Urine NEGATIVE ()?? 01/03/2023 07:15 Hemoglobin, Urine NEGATIVE ()?? 01/03/2023 07:15 Nitrite, Urine NEGATIVE ()?? 01/03/2023 07:15 Leukocyte, Urine NEGATIVE ()?? 01/03/2023 07:15 Urobilinogen NORMAL mg/dL ()?? 01/03/2023 07:15 WBC's, Urine NONE SEEN /HPF ()?? 01/03/2023 07:15 RBC's, Urine <1 /HPF ()?? 01/03/2023 07:15 Mucus SLIGHT /LPF ()?? 01/03/2023 02:22 Hold Urine Culture Testing available 48 hours from time of collection. ()?? 01/03/2023 07:15 Culture Indication CULTURE NOT INDICATED ()?? 01/03/2023 02:22 ?? URINE OTHER Est Creatinine Clearance 65.57 mL/min ()?? 01/03/2023 04:20 ?? VIROLOGY COVID-19 by RT-PCR NEGATIVE ()?? 01/03/2023 17:42 ? Blood Glucose Trend Glucose Level:??105 mg/dL??High (01/03/23 03:25:00) ? CBC, CBC w/Diff?? CBC?? Differential?? WBC: 9.9 k/mm3 (03:25) Abs. Neut:??7.7 k/mm3??High (03:25) RBC:??4.13 m/mm3??Low (03:25) Abs. Lymph: 1.2 k/mm3 (03:25) Hct:??35.1 %??Low (03:25) Abs. [place]: 0.9 k/mm3 (03:25) RDW-SD: 41.6 femtoliters (03:25) Abs. Eo: 0.1 k/mm3 (03:25) Nucleated RBC (Automated): 0 #/100 WBC'S (03:25) Abs. Baso: 0.1 k/mm3 (03:25) Abs. NRBC: 0 k/mm3 (03:25) Neut %:??77.3 %??High (03:25) ?? Lymph %:??11.7 %??Low (03:25) ?? [place] %: 8.6 % (03:25) ?? Eos %: 1.1 % (03:25) ?? Baso %: 0.6 % (03:25) ?? Imm Gran: 0.7 % (03:25) ?? Abs. Imm Gran: 0.1 k/mm3 (03:25) ? LFT?? No qualifying data available. ?? Urinalysis Albumin, Urine: NEGATIVE (07:15) Albumin, Urine: TRACE Abnormal (02:22) Appear/Color, Urine: COLORLESS (07:15) Appear/Color, Urine: LIGHT YELLOW (02:22) Bilirubin, Urine: NEGATIVE (07:15) Bilirubin, Urine: NEGATIVE (02:22) Clarity: CLEAR (02:22) Culture Indication: CULTURE NOT INDICATED (02:22) Est Creatinine Clearance: 65.57 mL/min (04:20) Glucose, Urine: NEGATIVE (07:15) Glucose, Urine: NEGATIVE (:22) Hemoglobin, Urine: NEGATIVE (07:15) Hemoglobin, Urine: NEGATIVE (02:22) Hold Urine Culture: Testing available 48 hours from time of collection. (07:15) Ketones, Urine: NEGATIVE (07:15) Ketones, Urine: NEGATIVE (02:22) Leukocyte, Urine: NEGATIVE (07:15) Leukocyte, Urine: NEGATIVE (02:22) Mucus: SLIGHT (02:22) Nitrite, Urine: NEGATIVE (07:15) Nitrite, Urine: NEGATIVE (02:22) pH, Urine: 6.5 (07:15) pH, Urine: 6.5 (02:22) RBC's, Urine: <1 (07:15) RBC's, Urine: 1 /HPF (02:22) Specific [place], Urine: 1.007 (07:15) Specific [place], Urine: 1.012 (02:22) Urobilinogen: NORMAL (07:15) Urobilinogen: NORMAL (02:22) WBC's, Urine: NONE SEEN (07:15) WBC's, Urine: 1 /HPF (02:22) ?? Microbiology ?? COVID-19 (Novel Coronavirus), Rapid PCR?? Completed?? Source: Nasal Body Site: Nose Collected Dt/Tm: 01/03/2023 17:35 Last Updated Dt/Tm: 01/03/2023 19:03 ? Blood Gases?? No qualifying data available. ?? Hospital Progress note * Rhea-OLoan Garcia RN: PERFORM, SIGN, VERIFY Event Display: Progress Note Hospital Authored Date: Patient: LUIS ANGEL MIMS Age: 72 years Sex: Male : 1950 Associated Diagnoses: None Author: Loan Flor RN Findings Problem Related to Alteration in Neurological : Alteration in Neurological Function/new 01/12/2023 10:00 EDT Alteration in Neuro status Related to Other: t9-t10 osteomyelitis Goals & Outcomes, Neurological Pt will resume/maintain adequate respiratory function, Non-verbal indicators will indicate comfort/pain control, Pt will report acceptable level of comfort & pain control Interventions, Neurological Assess/monitor neurologic status, Assess/monitor VS per unit standards & prn, Call/Report variances in assessments to provider, Maintain patient safety if unsteady gait, Monitor for headaches, nausea, vomiting, Monitor speech fluency, aphasia, word finding difficulty, Physical assessment per unit standards, Provide emotional support to Pt/caregiver, Teach pt/caregiver on plan of care, treatment, s/s & meds Goals/Interventions, Neurological Yes Neurological, Problem Start 01/03/2023 21:48 Reviewed plan with, Neurological Patient Patient Progression, Neurological Pt progressing according to plan . Nursing Data Neurological Data. : Neurological Data. 01/12/2023 8:00 EDT Tongue Disposition Midline Neurological Symptoms Back pain, Unsteady gait/Ataxia, Weakness or loss of muscle strength Level of Consciousness Full Consciousness Orientated to person, place, time Person, Place, Time, Event Hallucinations None Facial Symmetry Intact Characteristics of Speech Clear and normal Swallowing Difficulty None Pupil description, left Regular Pupil description, right Regular Pupil reaction, left Brisk Pupil reaction, right Brisk Strength LUE 5-Active movement against gravity & full resistance Strength RUE 5-Active movement against gravity & full resistance Strength LLE 5-Active movement against gravity & full resistance Strength RLE 5-Active movement against gravity & full resistance Tone LUE Normal Tone RUE Normal Tone LLE Normal Tone RLE Normal Sensation LUE Intact Sensation RUE Intact Sensation LLE Intact Sensation RLE Intact Movement LUE Spontaneous, To command, Flexes to pain Movement RUE Spontaneous, To command, Flexes to pain Movement LLE Spontaneous, To command, Flexes to pain Movement RLE Spontaneous, To command, Flexes to pain Gait Steady Response Eye Opening Spontaneously Motor Response-Adult Obeys commands Verbal Response-Adult Oriented and converses Chari Coma Score 15 Neuro WNL except Memory Intact Swallow - Neuro Normal . Evaluation Pt AOx4 speech clear, follow simple/complex commands. face symmetrical tongue midline, PERRL. Pt denies BANKS, dizziness and vision changes. MOHAMUD=strong, ambulates with one assist. Pt reports + sensation, no edema noted. lung sounds clear, no resp distress, pt denies SOB and chest pain. Abdomen round, semi firm, +BSx4 pt reports constipation, last documented BM 01/11 Good PO intake, pills whole. pt on fluid restriction, maintained. Pt reports pain / with movement, scheduled medication given with good effect, at rest Family at bedside, all questions and concerns addressed. Pt to be discharged home after antibiotic given this afternoon. Bed in low position,call morales with in reach, bed alarm on for safety, hourly rounding, safety maintained. . . . * Aiden Barnett: PERFORM, SIGN, VERIFY Event Display: Progress Note Hospital Authored Date: Patient: LUIS ANGEL MIMS Age: 72 years Sex: Male : 1950 Associated Diagnoses: None Author: Aiden Barnett Findings Problem Related to Alteration in Neurological : Alteration in Neurological Function/new 01/11/2023 21:00 EDT Alteration in Neuro status Related to Other: t9-t10 osteomyelitis Goals & Outcomes, Neurological Pt will resume/maintain adequate respiratory function, Non-verbal indicators will indicate comfort/pain control, Pt will report acceptable level of comfort & pain control Interventions, Neurological Assess/monitor for increased Intracranial Pressure, Assess/monitor neurologic status, Assess/monitor VS per unit standards & prn, Call/Report variances in assessments to provider, Collaborate w/ provider to implement appropriate guidelines, Collaborate with Nutrition, Collaborate with provider re: medication regime, Document & Monitor O2 Sats; Administer O2 as o rdered, Emergency airway equipment at bedside, Identify psychosocial issues related to diagnosis/illness, If no bowel movement in 3 days activate bowel regime, [place] alternate means of communication, Keep patient's head & body in good alignment, Maintain HOB at least 30 deg, Maintain normothermia, report temp >101.5 F, Maintain patient safety if unsteady gait, Maintain strict intake & output, Monitor Fluid & Electrolytes, Serum Osmolarity, Monitor for headaches, nausea, vomiting, Monitor speech fluency, aphasia, word finding difficulty, Physical assessment per unit standards, Provide emotional support to Pt/caregiver, Resolved problem, Interventions no longer in effect Goals/Interventions, Neurological Yes Neurological, Problem Start 01/03/2023 21:48 Reviewed plan with, Neurological Patient Patient Progression, Neurological Pt progressing according to plan . Nursing Data Neurological Data. : Neurological Data. 01/11/2023 21:45 EDT Tongue Disposition Midline Neurological Symptoms Back pain, Weakness or loss of muscle strength Level of Consciousness Full Consciousness Orientated to person, place, time Person, Place, Time, Event Facial Symmetry Intact Characteristics of Speech Clear and normal Swallowing Difficulty None Pupil description, left Regular Pupil description, right Regular Pupil reaction, left Brisk Pupil reaction, right Brisk Strength LUE 4-Active movement against gravity & some resistance Strength RUE 4-Active movement against gravity & some resistance Strength LLE 4-Active movement against gravity & some resistance Strength RLE 4-Active movement against gravity & some resistance Tone LUE Normal Tone RUE Normal Tone LLE Normal Tone RLE Normal Sensation LUE Intact Sensation RUE Intact Sensation LLE Intact Sensation RLE Intact Movement LUE To command, Spontaneous Movement RUE To command, Spontaneous Movement LLE To command, Spontaneous Movement RLE To command, Spontaneous Gait Steady Response Eye Opening Spontaneously Motor Response-Adult Obeys commands Verbal Response-Adult Oriented and converses [place] Coma Score 15 1 - 10 Pain Scale Score 10 Pain Interventions Non-pharmacological, Pharmacological, PRN medication, Repositioning, Rest Pain relief acceptable Yes Neuro WNL except Corneal/Blink Reflex Intact right, Intact left Eyes and Movements Conjugate gaze: Move in same direction at same speed Memory Intact Swallow - Neuro Normal . Evaluation Pt AOX4, clear speech; pt able to follow simple command. Face and smile symmetric with tongue midline. Pt denies numbness, tingling, or vision charges. MOHAMUD 4/5-one assist with ambulation, generalize weakness noted. +pulse sheryl, no edema, equal hand grasp. Lungs sounds clear on room air, pt denies sob or chest pain-no distress noted. Active bowel x4, soft, round abd.pt continent of bowel and bladder; last bm 01/10.pt tolerates a reg diet, take meds whole.pt reports 01/18 back pain-dilaudid given with positive effect. Patent watkins to right chest. Frequent pain assessment. All question and concerns answer. Bed in lowest position, call morales in reach. Safety maintained . * Loan Flor RN: PERFORM, SIGN, VERIFY Event Display: Progress Note Hospital Authored Date: [id number] Patient: LUIS ANGEL MIMS Age: 72 years Sex: Male : 1950 Associated Diagnoses: None Author: Loan Flor RN Findings Problem Related to Alteration in Neurological : Alteration in Neurological Function/new 01/11/2023 12:00 EDT Alteration in Neuro status Related to Other: t9-t10 osteomyelitis Goals & Outcomes, Neurological Pt will resume/maintain adequate respiratory function, Non-verbal indicators will indicate comfort/pain control, Pt will report acceptable level of comfort & pain control Interventions, Neurological Assess/monitor neurologic status, Assess/monitor VS per unit standards & prn, Call/Report variances in assessments to provider, Maintain patient safety if unsteady gait, Monitor for headaches, nausea, vomiting, Monitor speech fluency, aphasia, word finding difficulty, Physical assessment per unit standards, Provide emotional support to Pt/caregiver, Teach pt/caregiver discharge plan & follow up care, Teach pt/caregiver on plan of care, treatment, s/s & meds Goals/Interventions, Neurological Yes Neurological, Problem Start 01/03/2023 21:48 Reviewed plan with, Neurological Patient, Spouse/significant other Patient Progression, Neurological Pt progressing according to plan . Nursing Data Neurological Data. : Neurological Data. 01/11/2023 8:00 EDT Tongue Disposition Midline Neurological Symptoms Back pain, Unsteady gait/Ataxia, Weakness or loss of muscle strength Level of Consciousness Full Consciousness Orientated to person, place, time Person, Place, Time, Event Hallucinations None Facial Symmetry Intact Characteristics of Speech Clear and normal Swallowing Difficulty None Pupil description, left Regular Pupil description, right Regular Pupil reaction, left Brisk Pupil reaction, right Brisk Pupil Size, Left 2 mm Pupil Size, Right 2 mm Strength LUE 5-Active movement against gravity & full resistance Strength RUE 5-Active movement against gravity & full resistance Strength LLE 5-Active movement against gravity & full resistance Strength RLE 5-Active movement against gravity & full resistance Tone LUE Normal Tone RUE Normal Tone LLE Normal Tone RLE Normal Sensation LUE Intact Sensation RUE Intact Sensation LLE Intact Sensation RLE Intact Movement LUE Spontaneous, To command, Flexes to pain Movement RUE Spontaneous, To command, Flexes to pain Movement LLE Spontaneous, To command, Flexes to pain Movement RLE Spontaneous, To command, Flexes to pain Gait Unsteady Response Eye Opening Spontaneously Motor Response-Adult Obeys commands Verbal Response-Adult Oriented and converses [place] Coma Score 15 Neuro WNL except Memory Intact Swallow - Neuro Normal . Evaluation Pt AOx4 speech clear, follow simple/complex commands. face symmetrical tongue midline, PERRL. Pt denies BANKS, dizziness and vision changes. MOHAMUD=strong, unable to assess gait. Pt reports + sensation, noedema noted. lung sounds clear, no resp distress, pt denies SOB and chest pain. Abdomen round, semifirm, +BSx4 pt reports constipation, last documented BM 01/10 offered suppository. Pt NPO for procedure, pills whole. pt on fluid restriction, maintained. Pt reports pain 10/10 with movement, scheduledmedication given with good effect, at rest Family at bedside, all questions and concerns addressed.NACL bolus ordered and given. Bed in low position,call morales with in reach, bed alarm on for safety,hourly rounding, safety maintained. . . Note * Vianey Lr RN: PERFORM Event Display: Discharge/Transfer Note Hospital Authored Date: [id number] Nursing Discharge Note Entered On: 01/12/2023 16:31 EDT Performed On: 01/12/2023 16:31 EDT by Vianey Lr RN Nursing Discharge Note 2 Discharge Time : 01/12/2023 16:31 EDT Discharge Level of Care at Discharge : Homehealth/VNA Discharge VNA/Hospice/Home Care(v001) : [facility] [phone] Discharge Medical [employer](v001) : [facility] [employer] [phone] Patient Left Unit Via : Wheelchair Patient Accompanied Off Unit with : Responsible adult DC Instructions Provided & Signed by Pt : Yes Patient Understands D/C Instructions : Yes Verbalized Understanding of D/C Plan By : Patient, Significant other Patient Instructions Discharge Signed : Yes Discharge Comments : IV removed from LFA, cannula tip intact. Pt DC with Watkins. Pt able to state when to take next doses of all meds and when to make and attend all follow up appointments Did Pt have Specialty Bed or Wound Vac : No Adeline LÓPEZ, Vianey - 01/12/2023 16:31 EDT * Bob AUGUSTE, Madhavi Modi: PERFORM Madhavi Rojas MD: PERFORM Event Display: Discharge/Transfer Note Hospital Authored Date: [id number] Patient: ??MIMS, LUIS ANGEL ? Age:??72 Years?Sex:??Male?:??1950?? Patient Information Discharge Location: D5A Primary Care Physician: Shabana Newton MD Admit Date/Time: 01/03/23 18:36 Discharge Disposition Discharge Disposition: Home: No Services Discharge Diagnosis Osteomyelitis of thoracic spine (M46.24) Discitis thoracic region (M46.44) Coronary artery disease (I25.10) Hypertension (I10) Hypercholesterolemia (E78.00) Psoriasis (L40.9) Lumbar back pain (M54.50) ?? _ Discharge Medications Amlodipine (amLODIPine 10 mg oral tablet)?10?Milligram?1?tablet?By Mouth?Daily Aspirin (aspirin 81 mg oral delayed release tablet)?81?Milligram?1?tablet?By Mouth?Daily?for 30?Days Atorvastatin (atorvastatin 40 mg oral tablet)?1?tab(s)?40?Milligram?By Mouth?Daily?for 30?Days?replaces Simvastatin Cyanocobalamin (Vitamin B12 1000 mcg oral tablet)?1?tab(s)?1,000?Microgram?By [...] (Senna 8.6 mg oral tablet)?8.6?Milligram?1?tab(s)?By Mouth?Daily ? Durable Medical Equipment Discharge Medical Equipment Companies: [facility] ??[phone] (01/11/23) Name of Agency #1: [facility] (01/11/23) Name of Agency #1: [facility] (01/11/23) Agency [employer] #1: central intake (01/11/23) Service Categories #1: Home IV antibiotics (01/11/23) Service Comments #1: VNA ??services have been arranged to asst. ??you with administration of your IV antibx. (01/11/23) Agency [employer] [facility]2: [facility] (01/11/23) Service Categories #2: Home IV antibiotics, Other: Watkins cath care (01/11/23) Service Comments #2: The [employer] will provide the IV antibx. and equptment for care of Watkins cath. (01/11/23) Ambulatory devices needed: None (01/12/23) ? Medications Started Oxycodone (oxyCODONE 5 mg oral tablet)?10?Milligram?By Mouth?Every 6 hours?as needed?Pain , Moderate Polyethylene Glycol 3350 (MiraLax oral powder for reconstitution)?17?gram?By Mouth?Daily?dissolve in water before taking Senna (Senna 8.6 mg oral tablet)?8.6?Milligram?1?tab(s)?By Mouth?Daily Medications Discontinued None Doses Changed None PCP Follow-Up/Heads-Up Pt admitted for osteomyelitis will need 6 week course of Daptomycin 01/05-02/15 Was initially on vancomycin but had ROC Cr peaked at discharge to 2.1, should have close follow up with renal Pt also c/o abdominal pain with work up reassuring (KUB, CT no obstruction) thought to be 2/2 gas pains/opiate induced constipation. D/c'd on bowel reg - please ensure pt has been receiving abx - please repeat electrolytes and renal function - de-escalate opiates as pt can tolerate - follow up blood pressure (stopped home med bisoprolol-HCTZ due to ROC) Future Appointments 2022 10:30 AM EDT ?? With: Dante PARRISH, Concetta Baker Where: [facility] [address] [place] [address]- Status: Pending Hospital Course Luis Angel Mims is a 72 y/o M with a PMH of hypertension, hyperlipidemia, CAD, thoracic aortic aneurysm, erythrodermic psoriasis recently on adalimumab w/ recent admission 10/12-10/20 for MRSA bacteremia and T9-T10 osteomyelitis/discitis that was treated with vancomycin, ceftriaxone, dalbavancin x2 doses, and doxycycline x2 weeks who re-presented on 01/03 with worsening lower back pain. Repeat MRI shows progression of osteomyelitis/discitis at T9-T10 with new destruction of T9 vertebral body and paraspinal phlegmon which severely narrows the spinal canal and compressing the thoracic spinal cord.Neurosurgery recommends no acute surgical intervention at this time. Patient started on IV ceftriaxone and vancomycin, s/p bone biopsy with IR on 01/05 for antibiotic tailoring. Course complicated byacute kidney injury secondary to vancomycin. Switched to Daptomycin and will complete 6 week courseof this. Pending Watkins placement with IR. ?? Progression of T9-T10 osteomyelitis with destruction of T9 Paraspinal phlegmon ??History of MRSA bacteremia ??Recurrent osteomyelitis/discitis in setting of Humira infusions (immunocompromised) and MRSA bacteremia. s/p 2 doses of dalbavancin and 2 weeks of doxycycline which patient states he did not miss adose of ??Now presents with recurrence/progression ??MRI showed progression of osteomyelitis/discitis at T9-T10 with new destruction of T9 vertebral body and paraspinal phlegmon which severely narrows the spinal canal and compressing the thoracic spinal cord ??No clinical evidence of acute cord compression ??Prior KARINA negative for vegetation ??NSGY recommends no acute surgical intervention at this time ??Blood cultures have been negative. Pt underwent bone biopsy on 01/05 to aid in antibiotic tailoring given concern for antibiotic resistant bacteria. So far no growth to date ?? Recommendations: ??- Continue daptomycin 600 mg IV every 24 hours, total duration 6 weeks???01/05-02/15 ??- 16 S rRNA PCR testing sent on the aspirate specimen, follow up outpatient -Pain management: oxycodone 10 mg q4h PRN, schedule Tylenol,?-Senna/MiraLAX daily in setting of narcotic use ? Abdominal pain, distension ??Constipation KUB with mild stool retention CT abdomen/pelvis unremarkable, no obstruction Suspect constipation/gas pains from opiate use Recommendations: ??- Scheduled bowel regimen with Senna/Miralax ??- Simethicone PRN ? Non-Oliguric Acute kidney injury ??01/06 Cr 0.6 --> 01/07 Cr 1.4 --> 01/08 1.8 --> 8/ 1.9 --> / 1.9 --> 3 2.1 ??Complements normal, UA bland ??Suspect patient has ATN from vancomycin injury as trough was noted to be elevated 01/07 which is also when ROC occurred Recommendations: ??- Follow up with nephrology outpatient ? Hyponatremia ??Drea 56 ??Suspect SIADH ??Improved with fluid restriction Recommendations ??-??Stop HCTZ ??- Fluid restriction ?? Objective Measurements?? Height: 175 cm (01/11/23) Weight: 77.5 kg (01/03/23) Dry Weight: 77.5 kg (01/03/23) Body Mass Index:??25.31 kg/m2??High (01/03/23) ? Vital Signs?? Temperature: 98 DegF (01/12/23 07:00:00) Temperature Route: Oral (01/12/23 07:00:00) Pulse Rate:??96 bpm??High (01/12/23 07:00:00) Respiratory Rate: 18 br/min (01/12/23 07:00:00) Systolic Blood Pressure: 138 mm Hg (01/12/23 07:00:00) Diastolic Blood Pressure: 80 mm Hg (01/12/23 07:00:00) Blood pressure sites: Arm, right (01/12/23 07:00:00) Mean Arterial Pressure: 101 mm Hg (01/11/23 23:11:00) Pulse Pressure: 69 mm Hg (01/11/23 23:11:00) Oxygen Saturation: 97 % (01/12/23 07:00:00) Mode of Delivery (Oxygen): Room air (01/12/23 07:00:00) Early Warning Score: 4 (01/12/23 07:35:03) ? . Physical Exam General:??No acute distress. Head:??Normocephalic. Atraumatic. Eyes:??PERRL. EOMI.?? ENT:??Moist mucous membranes. Oropharynx is clear, without posterior erythema.?? Respiratory:??Lungs clear to auscultation bilaterally. No wheezes, rales, or rhonchi. Normal respiratory effort. Cardiovascular:??Regular rate and rhythm. S1, S2 normal. No murmurs, rubs, or gallops. Peripheral pulses are 2+ bilaterally. Capillary refill is < 2 sec.?? Gastrointestinal:??Soft. Non-distended. Normoactive bowel sounds. Non-tender. No rebound or guarding.?? Musculoskeletal:??No clubbing, cyanosis. No edema. Skin:??Warm, dry. No rashes. Neurological:??Alert, awake, and oriented x 3 (person, place, time). Cranial nerves 2-12 grossly intact. Normal strength. Normal sensation.?? Psychological:??Normal mood. Normal affect. [facility] Nephrology Infectious diseases Pending Results Add On Lab Order ordered on 01/08/2023 Add On Lab Order ordered on 01/08/2023 Add On Lab Order ordered on 01/10/2023 Anaerobic Culture ordered on 01/05/2023 Bacterial 16S Broad Range PCR ordered on 01/08/2023 Follow-Up Appointments Added Follow Up ?Time Frame ?Comments Aman AUGUSTE, Shabana Dorantes Patient Instructions You were hospitalized for osteomyelitis. You??received IV antibiotic therapy. ??Your hospitalization was complicated by??an injury to your kidneys.?? We think this is from??one of the antibiotics youreceived called vancomycin.?? We stopped this antibiotic and switched you to to??daptomycin.?? You underwent placement of a??central line so you can receive your antibiotic at home. ?? Patient care instructions: ?Continue daptomycin 600 mg IV every 24 hours??for total of 6 weeks??(01/05 - 02/15) ???Take oxycodone 10 mg every 6 hours as needed for pain ???Take senna and MiraLAX daily??to avoid constipation ???Stop taking your blood pressure medication??bisoprolol???hydrochlorothiazide??as this??medication can harm your kidneys ?Follow-up with infectious disease in clinic, they will call to arrange follow-up ??? Follow-up with nephrology in clinic, they will call to arrange follow-up ?Please avoid any medications??that can harm the kidneys including??ibuprofen, Motrin ?? Results Discharge Labs BLOOD COUNT & DIFF WBC 6.8 k/mm3 ()?? 01/11/2023 01:23 RBC 3.70 m/mm3 (Low)?? 01/11/2023 01:23 Hgb 10.4 Gm/dL (Low)?? 01/11/2023 01:23 Hct 31.5 % (Low)?? 01/11/2023 01:23 MCV 85.1 femtoliters ()?? 01/11/2023 01:23 MCH 28.1 pg ()?? 01/11/2023 01:23 MCHC 33.0 g/dL ()?? 01/11/2023 01:23 Platelet Count 285 k/mm3 ()?? 01/11/2023 01:23 RDW-SD 40.6 femtoliters ()?? 01/11/2023 01:23 MPV 9.1 femtoliters (Low)?? 01/11/2023 01:23 Nucleated RBC (Automated) 0.0 #/100 WBC'S ()?? 01/11/2023 01:23 Abs. NRBC 0.0 k/mm3 ()?? 01/11/2023 01:23 Abs. Neut 4.9 k/mm3 ()?? 01/04/2023 07:28 Abs. Lymph 1.0 k/mm3 ()?? 01/04/2023 07:28 Abs. [place] 1.0 k/mm3 ()?? 01/04/2023 07:28 Abs. Eo 0.2 k/mm3 ()?? 01/04/2023 07:28 Abs. Baso 0.1 k/mm3 ()?? 01/04/2023 07:28 Neut % 68.8 % ()?? 01/04/2023 07:28 Lymph % 13.7 % (Low)?? 01/04/2023 07:28 [place] % 13.3 % (High)?? 01/04/2023 07:28 Eos % 2.5 % ()?? 01/04/2023 07:28 Baso % 1.3 % ()?? 01/04/2023 07:28 Imm Gran 0.4 % ()?? 01/04/2023 07:28 Abs. Imm Gran 0.0 k/mm3 ()?? 01/04/2023 07:28 ?? CARDIAC CK, Total 37 units/L ()?? 01/08/2023 01:41 ? CHEM GENERAL Sodium 133 mmol/L ()?? 01/11/2023 01:23 Potassium 4.6 mmol/L ()?? 01/11/2023 01:23 Chloride 92 mmol/L (Low)?? 01/11/2023 01:23 Bicarbonate Level 30 mmol/L (High)?? 01/11/2023 01:23 Anion Gap 11 ()?? 01/11/2023 01:23 Glucose Level 114 mg/dL (High)?? 01/11/2023 01:23 BUN 22 mg/dL ()?? 01/11/2023 01:23 Creatinine-Blood 2.1 mg/dL (High)?? 01/11/2023 01:23 Estimated GFR Creatinine 33 ML/MIN/1.73 M2 ()?? 01/11/2023 01:23 Calcium 9.6 mg/dL ()?? 01/11/2023 01:23 Phosphorus 5.6 mg/dL (High)?? 01/11/2023 01:23 Magnesium 1.8 mg/dL ()?? 01/08/2023 01:41 Protein, Total 6.4 Gm/dL ()?? 01/04/2023 07:28 Albumin 4.2 Gm/dL ()?? 01/04/2023 07:28 AG Ratio 1.9 ()?? 01/04/2023 07:28 Alkaline Phosphatase 80 units/L ()?? 01/04/2023 07:28 AST (SGOT) 15 units/L ()?? 01/04/2023 07:28 ALT (SGPT) 10 units/L ()?? 01/04/2023 07:28 Bilirubin, Total 0.5 mg/dL ()?? 01/04/2023 07:28 Lactate 0.9 mmol/L ()?? 01/03/2023 03:25 C-Reactive Protein 2.9 mg/dL (High)?? 01/03/2023 03:25 ? COAG INR 1.0 ()?? 01/05/2023 01:13 Protime (PT) 10.3 seconds ()?? 01/05/2023 01:13 ?? FLUID STUDIES Synovial Fluid Color RED ()?? 01/05/2023 10:30 Synovial Fluid Appearance CLOUDY ()?? 01/05/2023 10:30 Synovial Fluid WBC 7 per Cubic Millimeter ()?? 01/05/2023 10:30 Synovial Fluid RBC [id number] per Cubic Millimeter ()?? 01/05/2023 10:30 Lymphocyte 41 % ()?? 01/05/2023 10:30 Segmented neutrophil 47 % (High)?? 01/05/2023 10:30 Monocyte 4 % ()?? 01/05/2023 10:30 Eosinophil 6 % ()?? 01/05/2023 10:30 Basophil 2 % ()?? 01/05/2023 10:30 ? HEME OTHER Sed Rate 47 mm/hr (High)?? 01/03/2023 03:25 ? IMMUNOLOGY GENERAL Complement C3 152 mg/dL ()?? 01/08/2023 01:41 Complement C4 33 mg/dL ()?? 01/08/2023 01:41 ?? TOXICOLOGY/TDM Vancomycin Level, Random 11.9 mg/L ()?? 01/09/2023 07:00 Vancomycin Level, Trough 23.5 mg/L (High)?? 01/07/2023 13:15 ?? UA/URINALYSIS Appear/Color, Urine LIGHT YELLOW ()?? 01/08/2023 18:15 Clarity CLEAR ()?? 01/03/2023 02:22 Specific [place], Urine 1.017 ()?? 01/08/2023 18:15 pH, Urine 6.0 ()?? 01/08/2023 18:15 Albumin, Urine TRACE (Abnormal)?? 01/08/2023 18:15 Glucose, Urine NEGATIVE ()?? 01/08/2023 18:15 Ketones, Urine NEGATIVE ()?? 01/08/2023 18:15 Bilirubin, Urine NEGATIVE ()?? 01/08/2023 18:15 Hemoglobin, Urine NEGATIVE ()?? 01/08/2023 18:15 Nitrite, Urine NEGATIVE ()?? 01/08/2023 18:15 Leukocyte, Urine NEGATIVE ()?? 01/08/2023 18:15 Urobilinogen NORMAL mg/dL ()?? 01/08/2023 18:15 WBC's, Urine 4 /HPF ()?? 01/08/2023 18:15 RBC's, Urine 1 /HPF ()?? 01/08/2023 18:15 Squamous Epith <1 /HPF ()?? 01/08/2023 18:15 Mucus SLIGHT /LPF ()?? 01/08/2023 18:15 Hold Urine Culture Testing available 48 hours from time of collection. ()?? 01/03/2023 07:15 Culture Indication CULTURE NOT INDICATED ()?? 01/03/2023 02:22 ?? URINE OTHER Eos, Urine <2 WBC/HPF, % EOS NOT CALCULATED % ()?? 01/08/2023 18:15 Creatinine, Urine Random 118.3 mg/dL ()?? 01/08/2023 18:15 Sodium, Urine Random 41 mmol/L ()?? 01/08/2023 18:15 Chloride, Urine Random 42 mmol/L ()?? 01/08/2023 18:15 Urea Nitrogen, Urine Random 403.5 mg/dL ()?? 01/08/2023 18:15 Osmolality, Urine Random 368 mOsm/kg ()?? 01/08/2023 18:15 Protein, Total Urine Random 21 mg/dL ()?? 01/08/2023 18:15 TP/Cr Ratio 0.17 ()?? 01/08/2023 18:15 Creatinine, Urine 118.3 mg/dL ()?? 01/08/2023 18:15 Malb/Creat Ratio 29.4 mg/Gm (High)?? 01/08/2023 18:15 Urine Creat For Micro Alb 118.3 mg/dL ()?? 01/08/2023 18:15 Micro-Albumin 35.0 mg/L (High)?? 01/08/2023 18:15 Est Creatinine Clearance 31.22 mL/min ()?? 01/11/2023 02:32 ? VIROLOGY COVID-19 by RT-PCR NEGATIVE ()?? 01/03/2023 17:42 ? Microbiology ?? Blood Culture?? Completed?? Source: Blood Body Site: ?? Collected Dt/Tm: 01/03/2023 03:24 Last Updated Dt/Tm: 01/03/2023 03:24 ?SPECIMEN DESCRIPTION : BLOOD ??L HANDSPECIAL REQUESTS : NONECULTURE : NO GROWTH 5 DAYS.REPORT STATUS : FINAL 01/08/2023 Blood Culture #2?? Completed?? Source: Blood Body Site: ?? Collected Dt/Tm: 01/03/2023 03:24 Last Updated Dt/Tm: 01/03/2023 03:24 ?SPECIMEN DESCRIPTION : BLOOD ??R FOREARMSPECIAL REQUESTS : NONECULTURE : NO GROWTH 5 DAYS.REPORT STATUS : FINAL 01/08/2023 COVID-19 (Novel Coronavirus), Rapid PCR?? Completed?? Source: Nasal Body Site: Nose Collected Dt/Tm: 01/03/2023 17:35 Last Updated Dt/Tm: 01/03/2023 19:03 Sterile Body Fluid Culture W/ Gram Smear?? Completed?? Source: Joint Fluid Body Site: ?? Collected Dt/Tm: 01/05/2023 10:16 Last Updated Dt/Tm: 01/05/2023 14:18 ?SPECIMEN DESCRIPTION : JOINT FLUID T9 T10 DISC ASPIRATESPECIAL REQUESTS : PLEASE NOTE THAT CULTURE RESULTS MAY BE COMPROMISED BY THE LIMITED ? VOLUME OF SPECIMEN RECEIVEDGRAM STAIN : 4+RBC'S ?2+ POLYMORPHONUCLEAR LEUKOCYTES ?NO ORGANISMS SEENCULTURE : NO GROWTH 2 DAYSREPORT STATUS : FINAL 01/07/2023 ? 30??minutes spent on discharge ?? discussed with attending physician Dr. Dunn ?? Madhavi Rojas MD PGY-4, Internal Medicine-Pediatrics Pager: [phone] * Caio AUGUSTE, Quique: PERFORM Event Display: Discharge/Transfer Note Hospital Authored Date: Attending Attestation:??I have seen and evaluated this patient. ??I have discussed the case and itsmanagement with the resident and agree with the findings and plan as documented in the resident???snote. * Vianey Lr RN: PERFORM Event Display: Patient Education/Instruction Authored Date: Inpatient Adult Discharge Instructions [address] [address] Name: LUIS ANGEL MIMS : 1950 Visit: 01/03/2023 18:36:00 Current Date: 01/12/2023 15:25 Account: [id number] Inpatient Adult Discharge Instructions We would like [...] and their families. Surveys are administered by [employer]. ?? If further treatment with your primary care physician or another doctor is recommended, it is important for you to keep the appointment. Call your primary care physician or return to the Emergency Department immediately if your condition worsens, fails to improve, or new symptoms develop. If you need to find a doctor, you can call [facility] [employer] for a referral at [phone] or toll free at [phone] [email or web address] ([phone]) or log in to [email or web address] [email or web address].. ?? You can view and manage your care through the patient portal or by using a health care claudio of your choosing. [employer] is a website that allows you to securely view your medical information including your hospital discharge summary, office visit summaries, medications and follow-up visits. You can also request appointments, renew medications, and request access to your medical information using a health care claudio of your choosing, or just ask a question. You can enroll at [email or web address] or register during your next office visit. You have been discharged from [facility], Patient Care Unit: D5A. If you have any questions regarding these instructions after you leave, please call us and we will be happy to assist you. [facility] Your Care Team Attending Physician Caio AUGUSTE, [employer] Providers Mamta AUGUSTE, Ayden Deshpande MD, Monica; Bev Hardy DO, MD, Moody Belle Discharging Providers Bob AUGUSTE, Madhavi Modi Reason for Admission Back pain Your Diagnosis Lumbar back pain Osteomyelitis of thoracic spine Discitis thoracic region Coronary artery disease Hypertension Hypercholesterolemia Psoriasis Tests Performed Below is a partial list of the tests performed during your hospitalization. You may have had other tests and procedures not included in this list. Please discuss all test results with your provider. 56009 Basic Metabolic Panel BUN CBC CBC w/ Differential Chloride Urine CK (CREATINE KINASE) COMPLEMENT C3 COMPLEMENT C4 Complete Urinalysis Comprehensive Metabolic Panel COVID-19 (Novel Coronavirus), Rapid PCR Creatinine Creatinine Urine CRP Electrolytes ESR Glucose Level INR Lactate Level Lytes Magnesium Level Microalbumin Urine Na Urine Osmolality Urine Phosphorus Level Protein/Creatinine Ratio Urine Sodium Urine Synovial Fluid Cell Count Synovial Fluid Differential UREA NITROGEN, URINE MG/DL Urinalysis Complete/Reflex Culture Urinalysis w/hold for Urine Culture Urine Creatinine URINE EOS Urine Osmolality Urine Sodium VANC-TROUGH Vancomycin Random CT Abd/Pelvis W/ Oral Contrast Only CT Guidance Needle IR Venous Access KUB MRI Lumbar Spine W+W/O Contrast MRI Thoracic Spine W+W/O Contrast Primary Care Provider Shabana Newton MD Advance Directive Health Care Proxy on File Yes - Health Care Proxy Discharge Vitals Temperature: 97.7 DegF Height: 175 cm Pulse Rate:??103 bpm??High Weight: 77.5 kg Respiratory Rate: 18 br/min Body Mass Index:??25.31 kg/m2??High Systolic Blood Pressure:??154 mm Hg??High Body surface area: 1.94 Diastolic Blood Pressure: 80 mm Hg ?? Oxygen Saturation: 99 % ?? Studies Pending All tests and labs ordered during this hospital stay have been completed unless listed below. Please discuss all pending results with your provider listed above in these instructions. ?? Add On Lab Order Anaerobic Culture Bacterial 16S Broad Range PCR What to do next Instructions From Your Doctor You were hospitalized for osteomyelitis. You??received IV antibiotic therapy. ??Your hospitalization was complicated by??an injury to your kidneys.?? We think this is from??one of the antibiotics youreceived called vancomycin.?? We stopped this antibiotic and switched you to to??daptomycin.?? You underwent placement of a??central line so you can receive your antibiotic at home. ?? Patient care instructions: ?Continue daptomycin 600 mg IV every 24 hours??for total of 6 weeks??(01/05 - 02/15) ???Take oxycodone 10 mg every 6 hours as needed for pain ???Take senna and MiraLAX daily??to avoid constipation ???Stop taking your blood pressure medication??bisoprolol???hydrochlorothiazide??as this??medication can harm your kidneys ?Follow-up with infectious disease in clinic, they will call to arrange follow-up ??? Follow-up with nephrology in clinic, they will call to arrange follow-up ?Please avoid any medications??that can harm the kidneys including??ibuprofen, Motrin ?? Discharge Orders Scheduled Follow-Up Appointments 2022 10:30 AM EDT ?? With: Dante PARRISH, Concetta Baker Where: [facility] [address] [place] [address]- Status: Pending You Need to Schedule the Following Appointments Follow Up with??Aman AUGUSTE, Shabana Dorantes Where: [address] [facility] [place] [address]- Discharge Medications LUIS ANGEL MIMS :1950 Visit Date:01/03/2023 Medications: Please continue your medications until treatment is completed or stopped by your provider. Medications not listed below should be discontinued. Discuss any questions related to medications with your provider. What How Much When Why Instructions Next Dose New Oxycodone (oxyCODONE 5 mg oral tablet) 10 Milligram Oral Every 6 hours as needed for Pain , Moderate Pickup at [place] [address] Tonight 01/12/23 9pm as needed New Polyethylene Glycol 3350 (MiraLax oral powder for reconstitution) 17 gram Oral Daily dissolve in water before taking ?? Pickup at [place] [address] Tomorrow 01/13/23 9am New Senna (Senna 8.6 mg oral tablet) 1 tab(s) Oral Daily Pickup at [place] [address] Tomorrow 01/13/23 9am Unchanged Amlodipine (amLODIPine 10 mg oral tablet) 1 tab(s) Oral Daily hypertension Tomorrow 01/13/23 9am Unchanged Aspirin (aspirin 81 mg oral delayed release tablet) 1 tab(s) Oral Daily Duration: 30 Days Tomorrow 01/13/23 9am Unchanged Atorvastatin (atorvastatin 40 mg oral tablet) 1 tab(s) Oral Daily Duration: 30 Days replaces Simvastatin ?? Tomorrow 01/13/23 9am Unchanged Cyanocobalamin (Vitamin B12 1000 mcg oral tablet) 1 tab(s) Oral Daily Tomorrow 01/13/23 9am Unchanged Multivitamin (Super B Complex) 1 tab(s) Oral Daily Tomorrow 01/13/23 9am Unchanged Multivitamin With Minerals (multivitamin with minerals Multiple Vitamins with Minerals oral tablet) 1 tab(s) Oral Daily Tomorrow 01/13/23 9am Unchanged Omeprazole (omeprazole 20 mg oral enteric coated capsule) 1 capsule Oral Daily Tomorrow 01/13/23 9am Pharmacy Information [facility] 3: [address], [place] [phone] ?? What How Much When Comments Stop Taking Bisoprolol-Hydrochlorothiazide (bisoprolol-hydrochlorothiazide 10 mg-6.25 mg oral tablet) 1 tab(s) Oral Daily Stop Taking Ibuprofen (ibuprofen 800 mg oral tablet) 1 tab(s) Oral 3 times a day as needed for NEEDED FOR MODERATE PAIN FOR Duration: 14 Days Test Results Below is a partial list of the most recent Laboratory test results done prior to this discharge. You may have had other tests and procedures not included in this list. Please discuss all test resultswith your provider. Est Creatinine Clearance - 46.84 mL/min (01/12/2023) [address]26 (01/05/2023) ? ?Surgical Pathology - Patient Name: LUIS ANGEL MIMS
Lab
Patient : 1950 (Age: 72)
Collection Date: 01/05/2023
Accession Date: 01/05/2023
Sign Out Date: 01/09/2023

Tissue Source:
1:T10 BONE BIOPSY,T9-T10 DISC ASPIRATE

Final Diagnosis:
Bone, T9-T10, biopsy:
- Acute and chronic osteomyelitis.

Comment:
This case has been presented at the Anatomic Pathology Review Conference, 01/09/23.

Primary Pathologist:Carrie Rowe M.D.
electronically signed out by: Carrie Rowe M.D. / LYLE
<br/ >

Clinical History:
72-year-old patient with imaging concern with T9-T10 discitis/osteomyelitis, bone biopsy done for diagnosis of same versus alternate etiology
T9-T10 discitis osteomyelitis

Gross Description:
Labeled T10 bone biopsy T9-T10 disc aspirate . Received in formalin is 1 core of nur-red bone measuring 1.8 x 0.3 x 0.3 cm. The specimen is submitted intoto following necessary decalcification.
1-1 piece, x 2. (HM)*

Phone #: [phone], On-Call Pathologist: [id number] Basic Metabolic Panel (01/12/2023) ???Sodium - 136 mmol/L???Potassium - 4.2 mmol/L???Chloride - 94 mmol/L???Bicarbonate Level - 28 mmol/L???Anion Gap - 14???Glucose Level - 102 mg/dL???BUN - 20 mg/dL???Creatinine-Blood - 1.4 mg/dL???Estimated GFR Creatinine - 52 ML/MIN/1.73 M2???Calcium - 9.9 mg/dL BUN (01/09/2023) ???BUN - 19 mg/dL CBC (01/11/2023) ???WBC - 6.8 k/mm3???RBC - 3.70 m/mm3???Hgb - 10.4 Gm/dL???Hct - 31.5 %???MCV - 85.1 femtoliters???MCH - 28.1 pg???MCHC - 33.0 g/dL???Platelet Count - 285 k/mm3???RDW-SD - 40.6 femtoliters???MPV - 9.1 femtoliters???Nucleated RBC (Automated) - 0.0 #/100 WBC'S???Abs. NRBC - 0.0 k/mm3 CBC w/ Differential (01/04/2023) ???WBC - 7.1 k/mm3???RBC - 3.98 m/mm3???Hgb - 11.4 Gm/dL???Hct - 34.2 %???MCV - 85.9 femtoliters???MCH - 28.6 pg???MCHC - 33.3 g/dL???Platelet Count - 276 k/mm3???RDW-SD - 41.4 femtoliters???MPV - 8.8 femtoliters???Nucleated RBC (Automated) - 0.0 #/100 WBC'S???Abs. NRBC - 0.0 k/mm3???Abs. Neut - 4.9 k/mm3???Abs. Lymph - 1.0 k/mm3???Abs. [place] - 1.0 k/mm3???Abs. Eo - 0.2 k/mm3???Abs. Baso - 0.1 k/mm3???Neut % - 68.8 %???Lymph % - 13.7 %???[place] % - 13.3 %???Eos % - 2.5 %???Baso % - 1.3 %???Imm Gran - 0.4 %???Abs. Imm Gran - 0.0 k/mm3 Chloride Urine (01/08/2023) ???Chloride, Urine Random - 42 mmol/L CK (CREATINE KINASE) (01/08/2023) ???CK, Total - 37 units/L COMPLEMENT C3 (01/08/2023) ???Complement C3 - 152 mg/dL COMPLEMENT C4 (01/08/2023) ???Complement C4 - 33 mg/dL Complete Urinalysis (01/08/2023) ???Appear/Color, Urine - LIGHT YELLOW???Specific [place], Urine - 1.017???pH, Urine - 6.0???Albumin, Urine - TRACE???Glucose, Urine - NEGATIVE???Ketones, Urine - NEGATIVE???Bilirubin, Urine - NEGATIVE???Hemoglobin, Urine - NEGATIVE???Nitrite, Urine - NEGATIVE???Leukocyte, Urine - NEGATIVE???Urobilin ogen - NORMAL? ?WBC's, Urine - 4 /HPF? ?RBC's, Urine - 1 /HPF? ?Squamous Epith - <1 /HPF? ?Mucus- SLIGHT Comprehensive Metabolic Panel (01/04/2023) ???Sodium - 132 mmol/L???Potassium - 4.4 mmol/L???Chloride - 94 mmol/L???Bicarbonate Level - 26 mmol/L???Anion Gap - 12???Glucose Level - 99 mg/dL???BUN - 11 mg/dL???Creatinine-Blood - 0.5 mg/dL???Estimated GFR Creatinine - 107 ML/MIN/1.73 M2???Calcium - 9.6 mg/dL???Protein, Total - 6.4 Gm/dL???Albu min - 4.2 Gm/dL???AG Ratio - 1.9???Alkaline Phosphatase - 80 units/L???AST (SGOT) - 15 units/L???ALT (SGPT) - 10 units/L???Bilirubin, Total - 0.5 mg/dL COVID-19 (Novel Coronavirus), Rapid PCR (01/03/2023) ???COVID-19 by RT-PCR - NEGATIVE Creatinine (01/09/2023) ???Creatinine-Blood - 1.9 mg/dL???Estimated GFR Creatinine - 36 ML/MIN/1.73 M2 Creatinine Urine (01/08/2023) ???Creatinine, Urine Random - 118.3 mg/dL CRP (01/03/2023) ???C-Reactive Protein - 2.9 mg/dL Electrolytes (01/03/2023) ???Sodium - 129 mmol/L???Potassium - 4.1 mmol/L???Chloride - 89 mmol/L???Bicarbonate Level - 26 mmol/L???Anion Gap - 14 ESR (01/03/2023) ???Sed Rate - 47 mm/hr Glucose Level (01/03/2023) ???Glucose Level - 105 mg/dL INR (01/05/2023) ???INR - 1.0???Protime (PT) - 10.3 seconds Lactate Level (01/03/2023) ???Lactate - 0.9 mmol/L Lytes (01/09/2023) ???Sodium - 132 mmol/L???Potassium - 4.3 mmol/L???Chloride - 94 mmol/L???Bicarbonate Level - 27 mmol/L???Anion Gap - 11 Magnesium Level (01/08/2023) ???Magnesium - 1.8 mg/dL Microalbumin Urine (01/08/2023) ???Malb/Creat Ratio - 29.4 mg/Gm???Urine Creat For Micro Alb - 118.3 mg/dL???Micro-Albumin - 35.0 mg/L Na Urine (01/06/2023) ???Sodium, Urine Random - 56 mmol/L Osmolality Urine (01/08/2023) ???Osmolality, Urine Random - 368 mOsm/kg Phosphorus Level (01/11/2023) ???Phosphorus - 5.6 mg/dL Protein/Creatinine Ratio Urine (01/08/2023) ???Protein, Total Urine Random - 21 mg/dL???TP/Cr Ratio - 0.17???Creatinine, Urine - 118.3 mg/dL Sodium Urine (01/08/2023) ???Sodium, Urine Random - 41 mmol/L Synovial Fluid Cell Count (01/05/2023) ???Synovial Fluid Color - RED???Synovial Fluid Appearance - CLOUDY???Synovial Fluid WBC - 7 per Cubic Millimeter???Synovial Fluid RBC - 431724 per Cubic Millimeter Synovial Fluid Differential (01/05/2023) ???Lymphocyte - 41 %???Segmented neutrophil - 47 %???Monocyte - 4 %???Eosinophil - 6 %???Basophil -2 % UREA NITROGEN, URINE MG/DL (01/08/2023) ???Urea Nitrogen, Urine Random - 403.5 mg/dL Urinalysis Complete/Reflex Culture (01/03/2023) ???Appear/Color, Urine - LIGHT YELLOW???Clarity - CLEAR???Specific [place], Urine - 1.012???pH, Urine - 6.5???Albumin, Urine - TRACE???Glucose, Urine - NEGATIVE???Ketones, Urine - NEGATIVE???Bilirubin, Urine - NEGATIVE???Hemoglobin, Urine - NEGATIVE???Nitrite, Urine - NEGATIVE???Leukocyte, Urine - N EGATIVE???Urobilinogen - NORMAL???WBC's, Urine - 1 /HPF???RBC's, Urine - 1 /HPF???Mucus - SLIGHT???Culture Indication - CULTURE NOT INDICATED Urinalysis w/hold for Urine Culture (01/03/2023) ???Appear/Color, Urine - COLORLESS???Specific [place], Urine - 1.007???pH, Urine - 6.5???Albumin, Urine - NEGATIVE???Glucose, Urine - NEGATIVE???Ketones, Urine - NEGATIVE???Bilirubin, Urine - NEGATIVE???Hemoglobin, Urine - NEGATIVE???Nitrite, Urine - NEGATIVE???Leukocyte, Urine - NEGATIVE???Urobilinogen - NORMAL? ?WBC's, Urine - NONE SEEN? ?RBC's, Urine - <1 /HPF? ?Hold Urine Culture - Testingavailable 48 hours from time of collection. Urine Creatinine (01/08/2023) ???Creatinine, Urine Random - 84.1 mg/dL URINE EOS (01/08/2023) ? ?Eos, Urine - <2 WBC/HPF, % EOS NOT CALCULATED Urine Osmolality (01/06/2023) ???Osmolality, Urine Random - 265 mOsm/kg Urine Sodium (01/08/2023) ???Sodium, Urine Random - 43 mmol/L VANC-TROUGH (01/07/2023) ???Vancomycin Level, Trough - 23.5 mg/L Vancomycin Random (01/09/2023) ???Vancomycin Level, Random - 11.9 mg/L Allergies (NKA means No Known Allergies) [...] Educational Leaflet Providered with your Discharge Instructions. Valuables and Belongings I fully understand and agree that [facility] accepts no responsibility for all [...] patient Date for Pt to Sign Valuables/Belongings: 01/03/23 19:43:00 ?? Other Discharge Information ? Case Management Discharge Plan?? Discharge Plan?? Discharge Agency Information?? Discharge Level of Care at Discharge: Homehealth/VNA Name of Agency #1: [facility] Discharge VNA/Hospice/Home Care: [facility] [phone] Name of Agency #1: [facility] Discharge Medical Equipment Companies: [facility] ??[phone] Agency [employer] #1: central intake ?? Service Categories #1: Home IV antibiotics ?? Service Comments #1: VNA ??services have been arranged to asst. ??you with administration of your IV antibx. ?? Agency [employer] #2: [facility] ?? Service Categories #2: Home IV antibiotics, Other: [facility] ?? Service Comments #2: The [employer] will provide the IV antibx. and equptment for care of [facility]. ?? Pulmonary Rehab Status?? Pulmonary Rehab Discharge Status?? Respiratory Rate: 18 br/min Discharge Medical Equipment Companies: [facility] ??[phone] ? Common Emergency Awareness Tips IS IT [...] are strongly encouraged to quit. Please call [facility] [employer] [facility] at [phone] or [phone] (5126) or log in to [email or web address] for referrals to smoking cessation programs. ?? 296 Suicide & Crisis Lifeline is available 01/01 if you or someone you know needs to find a reason to keep living. By calling 386 you'll be connected to a skilled, trained counselor at a crisis center in your area. INPATIENT DISCHARGE INSTRUCTIONS SIGNATURE PAGE LUIS ANGEL MIMS Location:[facility] Registration Date and Time:01/03/2023 18:36 EDT Primary Care Physician: Shabana Newton MD, Attending Physician: Caio AUGUSTE, Quique, I LUIS ANGEL MIMS, have received the above patient education materials/instructions and have verbalized understanding. If ambulance or transport services are being used I further acknowledge being given a choice of service. ?? If you need to contact me, please call me at this number: . Patient/Sr. Payroll Manager Name: Patient/Sr. Payroll Manager Signature: Relationship to Patient: Witness Name/Signature: Date: * Vianey Lr RN: PERFORM Event Display: Patient Education Leaflets Authored Date: [id number] Daptomycin Injection ?? [id number] Daptomycin Injection Brands: Cubicin Uses For treating bacterial infection. ?? Instructions This medicine is given as an IV injection into a vein. Always inspect the medicine before using. The liquid should be clear or light yellow. Do not use the medicine if it contains any particles or if it has changed color. Some brands of this medicine must be stored in the refrigerator while others may be kept at room temperature. Please speak with your pharmacist about how you should store your medicine. Never use any medicine that has . Discard any remaining medicine after your dose is given. Space doses evenly to keep a steady amount of medicine in the body. This medicine is used to treat serious infections that may be resistant to other antibiotic medicines. If you miss a dose, contact your doctor for instructions. Drug interactions can change how medicines work or increase risk for side effects. Tell your healthcare providers about all medicines taken. Include prescription and dmov-uwe-egkhckt medicines, vitamins, and herbal medicines. Speak with your doctor or pharmacist before starting or stopping any medicine. Tell your doctor if symptoms do not get better or if they get worse. Keep using this medicine for the full number of days that it is prescribed. Do not stop the medicine even if you start to feel better. Keep all appointments for medical exams and tests while on this medicine. Do not take the medicine more than once during 24 hours. ?? Cautions Tell your doctor and pharmacist if you ever had an allergic reaction to a medicine. Some patients taking this medicine have experienced serious side effects. Please speak with your doctor to understand the risks and benefits associated with this medicine. This medicine may cause damage to your muscles. Please call your doctor immediately if you notice any unusual pain or weakness in your muscles. Do not use the medication any more than instructed. Your ability to stay alert or to react quickly may be impaired by this medicine. Do not drive or operate machinery until you know how this medicine will affect you. Please check with your doctor before drinking alcohol while on this medicine. Contact your doctor if you notice a change in the amount or darkening of your urine. Contact your doctor if you develop any signs of a new infection such as fever, cough, sore throat, or chills. Speak with your health care provider before receiving any vaccinations. Please tell your doctor if you have moderate to severe diarrhea while on this medicine. Do not treat the diarrhea with spus-rny-yaikdjq diarrhea medicine. Tell the doctor or pharmacist if you are , planning to be , or . Ask your pharmacist how to properly throw away used needles or syringes. Do not share this medicine with anyone who has not been prescribed this medicine. ?? Side Effects The following is a list of some common side effects from this medicine. Please speak with your doctor about what you should do if you experience these or other side effects. ??? agitated feeling or trouble sleeping ??? constipation or diarrhea ??? dizziness ??? pain, redness, swelling near injection ??? nausea and vomiting ??? sweating ??? yeast infection of mouth ??? vaginal itching or yeast infection Call your doctor or get medical help right away if you notice any of these more serious side effects: ??? severe, watery or bloody diarrhea ??? swelling of the legs, feet, and hands ??? fever ??? swelling in the neck or throat ??? numbness or tingling in hands and feet ??? signs of kidney damage (such as change in urine color or bubbly urine) ??? mood changes ??? muscle pain or weakness ??? severe stomach or bowel pain ??? blood in stool ??? unusual or unexplained tiredness or weakness A few people may have an allergic reaction to this medicine. Symptoms can include difficulty breathing, skin rash, itching, swelling, or severe dizziness. If you notice any of these symptoms, seek medical help quickly. ?? Extra Please speak with your doctor, nurse, or pharmacist if you have any questions about this medicine. ?? [email or web address] IMPORTANT NOTE: This document tells you briefly how to take your medicine, but it does not tell youall there is to know about it. Your doctor or pharmacist may give you other documents about your medicine. Please talk to them if you have any questions. Always follow their advice. There is a more complete description of this medicine available in [employer] [place]. Scan this code on your smartphone or tablet or use the web address below. You can also ask your pharmacist for a printout. If you have any questions, please ask your pharmacist. The display and use of this drug information is subject to Terms of Use. Copyright(c) 2022 [employer]. ?? [employer]. All rights reserved. This information is not intended as a substitute for professional medical care. Always follow your healthcare professional's instructions. ?? * Vianey Lr RN: PERFORM Event Display: Patient Education Leaflets Authored Date: [id number] Polyethylene Glycol 3350 Powder For Oral Solution ?? [address] Polyethylene Glycol 3350 Powder For Oral Solution Brands: ClearLax, Ez2go Osmotic, Gavilax, GentleLax, HealthyLax, Miralax, PureLax Uses For bowel movement. ?? Instructions Mix the medicine with 4-8 oz. (120-240 mL) of water or juice, then drink. Drink the medicine immediately after mixing. This medicine may be taken with or without food. Keep this medicine at room temperature. Protect from moisture and high humidity. Keep the medicine away from heat and light. Frequent or terminal makeup operator use of laxatives can cause your bowels to depend on them. Do not use laxatives for more than one week unless directed by your doctor. To reduce constipation, eat high fiber foods, drink plenty of water and exercise. Tell your doctor and pharmacist about all your medicines. Include prescription and gcby-uri-iohhsyvtyrvgfwps, vitamins, and herbal medicines. Tell your doctor if symptoms do not get better or if they get worse. ?? Cautions Tell your doctor and pharmacist if you ever had an allergic reaction to a medicine. Do not use the medication any more than instructed. It is unknown if this medicine passes into breast milk. Ask your doctor before . During , this medicine should be used only when clearly needed. Talk to your doctor about the risks and benefits. Do not start or stop any other medicines without first speaking to your doctor or pharmacist. ?? Side Effects The following is a list of some common side effects from this medicine. Please speak with your doctor about what you should do if you experience these or other side effects. ??? bloating ??? diarrhea ??? excess gas ??? nausea ??? stomach upset or abdominal pain Call your doctor or get medical help right away if you notice any of these more serious side effects: ??? severe or persistent abdominal pain ??? severe, watery or bloody diarrhea ??? stomach pain ??? blood in stool A few people may have an allergic reaction to this medicine. Symptoms can include difficulty breathing, skin rash, itching, swelling, or severe dizziness. If you notice any of these symptoms, seek medical help quickly. ?? Extra Please speak with your doctor, nurse, or pharmacist if you have any questions about this medicine. ?? [email or web address] IMPORTANT NOTE: This document tells you briefly how to take your medicine, but it does not tell youall there is to know about it. Your doctor or pharmacist may give you other documents about your medicine. Please talk to them if you have any questions. Always follow their advice. There is a more complete description of this medicine available in [employer] [place]. Scan this code on your smartphone or tablet or use the web address below. You can also ask your pharmacist for a printout. If you have any questions, please ask your pharmacist. The display and use of this drug information is subject to Terms of Use. Copyright(c) 2022 [employer]. ?? [employer]. All rights reserved. This information is not intended as a substitute for professional medical care. Always follow your healthcare professional's instructions. ?? * Vianey Lr RN: PERFORM Event Display: Patient Education Leaflets Authored Date: [id number] Oxycodone Oral Tablet 5 mg ?? [id number] Oxycodone Oral Tablet 5 mg Uses For pain. ?? Instructions Some brands of this medicine should be swallowed whole while other brands may be crushed. Ask your pharmacist how you should take your medicine. This medicine may be taken with or without food. Swallow with a full glass (8 oz) of water unless your doctor gives you different instructions. Store at room temperature away from heat, light, and moisture. Do not keep in the bathroom. Please ask your doctor, nurse, or pharmacist how to discard unused medicines safely. To reduce constipation, eat high fiber foods, drink plenty of water and exercise. Avoid grapefruit juice while on this medicine. Drug interactions can change how medicines work or increase risk for side effects. Tell your healthcare providers about all medicines taken. Include prescription and [id number] medicines, vitamins, and herbal medicines. Speak with your doctor or pharmacist before starting or stopping any medicine. Tell your doctor if symptoms do not get better or if they get worse. Parts of this medicine may come out in the stool. This is normal. ?? Cautions This medicine has an opioid. Opioids help many people but may cause addiction, especially if used for a long time. The addiction risk is higher if you have a substance use disorder (overuse of or addiction to drugs or alcohol). Ask your doctor about the benefits and risks. Ask your doctor or pharmacist if you should have naloxone on hand to treat opioid overdose. Teach your family or household members about the signs of an opioid overdose and how to treat it. If you stop this medicine suddenly after using it for a long time, you may have withdrawal. Your doctor may slowly lower your dose before stopping it. Tell your doctor right away if you have symptoms, such as unusual sweating, watering eyes, runny nose, chills, diarrhea, yawning, muscle aches, restlessness, anxiety, trouble sleeping, or thoughts of suicide. Tell your doctor and pharmacist if you ever had an allergic reaction to a medicine. Do not use the medication any more than instructed. If possible, avoid using with alcohol, marijuana, or other medicines that can cause dizziness or drowsiness. These include allergy/cold products, muscle relaxers, sleep aids, and pain relievers. Your ability to stay alert or to react quickly may be impaired by this medicine. Do not drive or operate machinery until you know how this medicine will affect you. This medicine passes into breast milk. Ask your doctor before . This medicine can hurt a new baby in the womb. If you become while on this medicine, tell your doctor immediately. Your doctor may switch you to a different medicine. This medicine should be used with caution in patients with breathing difficulties. Call your doctor right away if you notice slow or shallow breathing. Do not share this medicine with anyone who has not been prescribed this medicine. Some patients have serious side effects from this medicine. Ask your pharmacist to show you the information from the Food and Drug Administration (FDA) and discuss it with you. ?? Side Effects The following is a list of some common side effects from this medicine. Please speak with your doctor about what you should do if you experience these or other side effects. ??? decreased appetite ??? constipation ??? dizziness or drowsiness ??? lightheadedness ??? nausea and vomiting Call your doctor or get medical help right away if you notice any of these more serious side effects: ??? agitated feeling or trouble sleeping ??? decreased awareness or responsiveness ??? breathing interruption during sleep ??? shallow, irregular breathing ??? changes in memory, mood, or thinking ??? confusion ??? fainting ??? hallucinations (unusual thoughts, seeing or hearing things that are notreal) ??? seizures ??? severe stomach or bowel pain ??? unusual or unexplained tiredness or weakness ??? difficulty or discomfort urinating ??? weight loss A few people may have an allergic reaction to this medicine. Symptoms can include difficulty breathing, skin rash, itching, swelling, or severe dizziness. If you notice any of these symptoms, seek medical help quickly. ?? Extra Please speak with your doctor, nurse, or pharmacist if you have any questions about this medicine. ?? [email or web address] IMPORTANT NOTE: This document tells you briefly how to take your medicine, but it does not tell youall there is to know about it. Your doctor or pharmacist may give you other documents about your medicine. Please talk to them if you have any questions. Always follow their advice. There is a more complete description of this medicine available in [employer] [place]. Scan this code on your smartphone or tablet or use the web address below. You can also ask your pharmacist for a printout. If you have any questions, please ask your pharmacist. The display and use of this drug information is subject to Terms of Use. Copyright(c) 2022 [employer]. ?? [employer]. All rights reserved. This information is not intended as a substitute for professional medical care. Always follow your healthcare professional's instructions. ?? * Bob AUGUSTE, Madhavi Modi: PERFORM Event Display: Discharge/Transfer Note Hospital Authored Date: [id number] Patient: ??MIMS LUIS ANGEL ? Age:??72 Years?Sex:??Male?:??1950?? Patient Information Discharge Location: A Primary Care Physician: Aman AUGUSTE, Shabana Dorantes Admit Date/Time: 01/03/23 18:36 Discharge Disposition Discharge Disposition: Home: No Services Discharge Diagnosis Osteomyelitis of thoracic spine (M46.24) Discitis thoracic region (M46.44) Coronary artery disease (I25.10) Hypertension (I10) Hypercholesterolemia (E78.00) Psoriasis (L40.9) Lumbar back pain (M54.50) ?? _ Discharge Medications Amlodipine (amLODIPine 10 mg oral tablet)?10?Milligram?1?tablet?By Mouth?Daily Aspirin (aspirin 81 mg oral delayed release tablet)?81?Milligram?1?tablet?By Mouth?Daily?for 30?Days Atorvastatin (atorvastatin 40 mg oral tablet)?1?tab(s)?40?Milligram?By Mouth?Daily?for 30?Days?replaces Simvastatin Cyanocobalamin (Vitamin B12 1000 mcg oral tablet)?1?tab(s)?1,000?Microgram?By [...] (Senna 8.6 mg oral tablet)?8.6?Milligram?1?tab(s)?By Mouth?Daily ? Durable Medical Equipment Discharge Medical Equipment Companies: [facility] ??[phone] (01/11/23) Name of Agency #1: [facility] (01/11/23) Name of Agency #1: [facility] (01/11/23) Agency [facility]1: central intake (01/11/23) Service Categories #1: Home IV antibiotics (01/11/23) Service Comments #1: [facility]NA ??services have been arranged to asst. ??you with administration of your IV antibx. (01/11/23) Agency [facility]2: [facility] (01/11/23) Service Categories #2: Home IV antibiotics, Other: [facility] (01/11/23) Service Comments #2: [employer] will provide the IV antibx. and equptment for care of [facility]. (01/11/23) Ambulatory devices needed: None (01/07/23) ? Medications Started Oxycodone (oxyCODONE 5 mg oral tablet)?10?Milligram?By Mouth?Every 6 hours?as needed?Pain , Moderate Polyethylene Glycol 3350 (MiraLax oral powder for reconstitution)?17?gram?By Mouth?Daily?dissolve in water before taking Senna (Senna 8.6 mg oral tablet)?8.6?Milligram?1?tab(s)?By Mouth?Daily Medications Discontinued Bisoprolol-Hydrochlorothiazide Doses Changed None Future Appointments 2022 10:30 AM EDT ?? With: Dante PARRISH, Concetta Baker Where: [facility] [address] [place] [address]- Status: Pending Hospital Course Luis Angel Mims is a 72 y/o M with a PMH of hypertension, hyperlipidemia, CAD, thoracic aortic aneurysm, erythrodermic psoriasis recently on adalimumab w/ recent admission 10/12-10/20 for MRSA bacteremia and T9-T10 osteomyelitis/discitis that was treated with vancomycin, ceftriaxone, dalbavancin x2 doses, and doxycycline x2 weeks who re-presented on 01/03 with worsening lower back pain. Repeat MRI shows progression of osteomyelitis/discitis at T9-T10 with new destruction of T9 vertebral body and paraspinal phlegmon which severely narrows the spinal canal and compressing the thoracic spinal cord.Neurosurgery recommends no acute surgical intervention at this time. Patient started on IV ceftriaxone and vancomycin, s/p bone biopsy with IR on 01/05 for antibiotic tailoring. Course complicated byacute kidney injury secondary to vancomycin. Switched to Daptomycin and will complete 6 week courseof this. Pending Watkins placement with IR. ?? Progression of T9-T10 osteomyelitis with destruction of T9 Paraspinal phlegmon ??History of MRSA bacteremia ??Recurrent osteomyelitis/discitis in setting of Humira infusions (immunocompromised) and MRSA bacteremia. s/p 2 doses of dalbavancin and 2 weeks of doxycycline which patient states he did not miss adose of ??Now presents with recurrence/progression ??MRI showed progression of osteomyelitis/discitis at T9-T10 with new destruction of T9 vertebral body and paraspinal phlegmon which severely narrows the spinal canal and compressing the thoracic spinal cord ??No clinical evidence of acute cord compression ??Prior KARINA negative for vegetation ??NSGY recommends no acute surgical intervention at this time ??Blood cultures have been negative. Pt underwent bone biopsy on 01/05 to aid in antibiotic tailoring given concern for antibiotic resistant bacteria. So far no growth to date ?? Recommendations: ??- Continue daptomycin 600 mg IV every 24 hours, total duration 6 weeks???01/05-02/15 - Follow up with infectious??disease outpatient ??- 16 S rRNA PCR testing sent on the aspirate specimen, follow up outpatient -Pain management: oxycodone 10 mg q4h PRN, schedule Tylenol,?-Senna/MiraLAX daily in setting of narcotic use ?? Non-Oliguric Acute kidney injury ??01/06 Cr 0.6 --> 01/07 Cr 1.4 --> 01/08 1.8 --> 8/1 1.9 --> 8/2 1.9 --> 8/3 2.1 ??Complements normal, UA bland ??Suspect patient has ATN from vancomycin injury as trough was noted to be elevated 01/07 which is also when ROC occurred Recommendations: ??- Follow up with nephrology outpatient ? Abdominal pain, distension ??Constipation KUB with mild stool retention CT abdomen/pelvis unremarkable, no obstruction Suspect constipation/gas pains from opiate use Recommendations: ??- Scheduled bowel regimen with Senna/Miralax ??- Simethicone PRN ? Hyponatremia ??Drea 56 ??Suspect SIADH ??Improved with fluid restriction Recommendations ??-??Stop HCTZ ??- Fluid restriction ?? Objective Measurements?? Height: 175 cm (01/11/23) Weight: 77.5 kg (01/03/23) Dry Weight: 77.5 kg (01/03/23) Body Mass Index:??25.31 kg/m2??High (01/03/23) ? Vital Signs?? Temperature: 97.8 DegF (01/11/23 15:00:00) Temperature Route: Oral (01/11/23 15:00:00) Pulse Rate:??114 bpm??High (01/11/23 15:00:00) Respiratory Rate: 18 br/min (01/11/23 15:59:00) Systolic Blood Pressure:??152 mm Hg??High (01/11/23 15:00:00) Diastolic Blood Pressure: 84 mm Hg (01/11/23 15:00:00) Blood pressure sites: Arm, right (01/11/23 15:00:00) Mean Arterial Pressure: 98 mm Hg (01/11/23 03:22:00) Pulse Pressure: 68 mm Hg (01/11/23 15:00:00) Oxygen Saturation: 98 % (01/11/23 15:00:00) Mode of Delivery (Oxygen): Room air (01/11/23 15:00:00) Early Warning Score: 8 (01/11/23 16:00:17) ? . Physical Exam General:??No acute distress. Head:??Normocephalic. Atraumatic. Eyes:??PERRL. EOMI.?? ENT:??Moist mucous membranes. Oropharynx is clear, without posterior erythema.?? Respiratory:??Lungs clear to auscultation bilaterally. No wheezes, rales, or rhonchi. Normal respiratory effort. Cardiovascular:??Regular rate and rhythm. S1, S2 normal. No murmurs, rubs, or gallops. Peripheral pulses are 2+ bilaterally. Capillary refill is < 2 sec.?? Gastrointestinal:??Soft. Non-distended. Normoactive bowel sounds. Non-tender. No rebound or guarding.?? Musculoskeletal:??No clubbing, cyanosis. No edema. Skin:??Warm, dry. No rashes. Neurological:??Alert, awake, and oriented x 3 (person, place, time). Cranial nerves 2-12 grossly intact. Normal strength. Normal sensation.?? Psychological:??Normal mood. Normal affect. [facility] Nephrology Infectious diseases Pending Results Add On Lab Order ordered on 01/08/2023 Add On Lab Order ordered on 01/08/2023 Add On Lab Order ordered on 01/10/2023 Anaerobic Culture ordered on 01/05/2023 Bacterial 16S Broad Range PCR ordered on 01/08/2023 IR Generic Order ordered on 01/09/2023 Follow-Up Appointments Added Follow Up ?Time Frame ?Comments Aman AUGUSTE, Shabana Dorantes Patient Instructions You were hospitalized for osteomyelitis. You??received IV antibiotic therapy. ??Your hospitalization was complicated by??an injury to your kidneys.?? We think this is from??one of the antibiotics youreceived called vancomycin.?? We stopped this antibiotic and switched you to to??daptomycin.?? You underwent placement of a??central line so you can receive your antibiotic at home. ?? Patient care instructions: ?Continue daptomycin 600 mg IV every 24 hours??for total of 6 weeks??(01/05 - 02/15) ???Take oxycodone 10 mg every 6 hours as needed for pain ???Take senna and MiraLAX daily??to avoid constipation ???Stop taking your blood pressure medication??bisoprolol???hydrochlorothiazide??as this??medication can harm your kidneys ?Follow-up with infectious disease in clinic, they will call to arrange follow-up ??? Follow-up with nephrology in clinic, they will call to arrange follow-up ?Please avoid any medications??that can harm the kidneys including??ibuprofen, Motrin ?? Results Discharge Labs BLOOD COUNT & DIFF WBC 6.8 k/mm3 ()?? 01/11/2023 01:23 RBC 3.70 m/mm3 (Low)?? 01/11/2023 01:23 Hgb 10.4 Gm/dL (Low)?? 01/11/2023 01:23 Hct 31.5 % (Low)?? 01/11/2023 01:23 MCV 85.1 femtoliters ()?? 01/11/2023 01:23 MCH 28.1 pg ()?? 01/11/2023 01:23 MCHC 33.0 g/dL ()?? 01/11/2023 01:23 Platelet Count 285 k/mm3 ()?? 01/11/2023 01:23 RDW-SD 40.6 femtoliters ()?? 01/11/2023 01:23 MPV 9.1 femtoliters (Low)?? 01/11/2023 01:23 Nucleated RBC (Automated) 0.0 #/100 WBC'S ()?? 01/11/2023 01:23 Abs. NRBC 0.0 k/mm3 ()?? 01/11/2023 01:23 Abs. Neut 4.9 k/mm3 ()?? 01/04/2023 07:28 Abs. Lymph 1.0 k/mm3 ()?? 01/04/2023 07:28 Abs. [place] 1.0 k/mm3 ()?? 01/04/2023 07:28 Abs. Eo 0.2 k/mm3 ()?? 01/04/2023 07:28 Abs. Baso 0.1 k/mm3 ()?? 01/04/2023 07:28 Neut % 68.8 % ()?? 01/04/2023 07:28 Lymph % 13.7 % (Low)?? 01/04/2023 07:28 [place] % 13.3 % (High)?? 01/04/2023 07:28 Eos % 2.5 % ()?? 01/04/2023 07:28 Baso % 1.3 % ()?? 01/04/2023 07:28 Imm Gran 0.4 % ()?? 01/04/2023 07:28 Abs. Imm Gran 0.0 k/mm3 ()?? 01/04/2023 07:28 ?? CARDIAC CK, Total 37 units/L ()?? 01/08/2023 01:41 ? CHEM GENERAL Sodium 133 mmol/L ()?? 01/11/2023 01:23 Potassium 4.6 mmol/L ()?? 01/11/2023 01:23 Chloride 92 mmol/L (Low)?? 01/11/2023 01:23 Bicarbonate Level 30 mmol/L (High)?? 01/11/2023 01:23 Anion Gap 11 ()?? 01/11/2023 01:23 Glucose Level 114 mg/dL (High)?? 01/11/2023 01:23 BUN 22 mg/dL ()?? 01/11/2023 01:23 Creatinine-Blood 2.1 mg/dL (High)?? 01/11/2023 01:23 Estimated GFR Creatinine 33 ML/MIN/1.73 M2 ()?? 01/11/2023 01:23 Calcium 9.6 mg/dL ()?? 01/11/2023 01:23 Phosphorus 5.6 mg/dL (High)?? 01/11/2023 01:23 Magnesium 1.8 mg/dL ()?? 01/08/2023 01:41 Protein, Total 6.4 Gm/dL ()?? 01/04/2023 07:28 Albumin 4.2 Gm/dL ()?? 01/04/2023 07:28 AG Ratio 1.9 ()?? 01/04/2023 07:28 Alkaline Phosphatase 80 units/L ()?? 01/04/2023 07:28 AST (SGOT) 15 units/L ()?? 01/04/2023 07:28 ALT (SGPT) 10 units/L ()?? 01/04/2023 07:28 Bilirubin, Total 0.5 mg/dL ()?? 01/04/2023 07:28 Lactate 0.9 mmol/L ()?? 01/03/2023 03:25 C-Reactive Protein 2.9 mg/dL (High)?? 01/03/2023 03:25 ? COAG INR 1.0 ()?? 01/05/2023 01:13 Protime (PT) 10.3 seconds ()?? 01/05/2023 01:13 ?? FLUID STUDIES Synovial Fluid Color RED ()?? 01/05/2023 10:30 Synovial Fluid Appearance CLOUDY ()?? 01/05/2023 10:30 Synovial Fluid WBC 7 per Cubic Millimeter ()?? 01/05/2023 10:30 Synovial Fluid RBC [id number] per Cubic Millimeter ()?? 01/05/2023 10:30 Lymphocyte 41 % ()?? 01/05/2023 10:30 Segmented neutrophil 47 % (High)?? 01/05/2023 10:30 Monocyte 4 % ()?? 01/05/2023 10:30 Eosinophil 6 % ()?? 01/05/2023 10:30 Basophil 2 % ()?? 01/05/2023 10:30 ? HEME OTHER Sed Rate 47 mm/hr (High)?? 01/03/2023 03:25 ? IMMUNOLOGY GENERAL Complement C3 152 mg/dL ()?? 01/08/2023 01:41 Complement C4 33 mg/dL ()?? 01/08/2023 01:41 ?? TOXICOLOGY/TDM Vancomycin Level, Random 11.9 mg/L ()?? 01/09/2023 07:00 Vancomycin Level, Trough 23.5 mg/L (High)?? 01/07/2023 13:15 ?? UA/URINALYSIS Appear/Color, Urine LIGHT YELLOW ()?? 01/08/2023 18:15 Clarity CLEAR ()?? 01/03/2023 02:22 Specific [place], Urine 1.017 ()?? 01/08/2023 18:15 pH, Urine 6.0 ()?? 01/08/2023 18:15 Albumin, Urine TRACE (Abnormal)?? 01/08/2023 18:15 Glucose, Urine NEGATIVE ()?? 01/08/2023 18:15 Ketones, Urine NEGATIVE ()?? 01/08/2023 18:15 Bilirubin, Urine NEGATIVE ()?? 01/08/2023 18:15 Hemoglobin, Urine NEGATIVE ()?? 01/08/2023 18:15 Nitrite, Urine NEGATIVE ()?? 01/08/2023 18:15 Leukocyte, Urine NEGATIVE ()?? 01/08/2023 18:15 Urobilinogen NORMAL mg/dL ()?? 01/08/2023 18:15 WBC's, Urine 4 /HPF ()?? 01/08/2023 18:15 RBC's, Urine 1 /HPF ()?? 01/08/2023 18:15 Squamous Epith <1 /HPF ()?? 01/08/2023 18:15 Mucus SLIGHT /LPF ()?? 01/08/2023 18:15 Hold Urine Culture Testing available 48 hours from time of collection. ()?? 01/03/2023 07:15 Culture Indication CULTURE NOT INDICATED ()?? 01/03/2023 02:22 ?? URINE OTHER Eos, Urine <2 WBC/HPF, % EOS NOT CALCULATED % ()?? 01/08/2023 18:15 Creatinine, Urine Random 118.3 mg/dL ()?? 01/08/2023 18:15 Sodium, Urine Random 41 mmol/L ()?? 01/08/2023 18:15 Chloride, Urine Random 42 mmol/L ()?? 01/08/2023 18:15 Urea Nitrogen, Urine Random 403.5 mg/dL ()?? 01/08/2023 18:15 Osmolality, Urine Random 368 mOsm/kg ()?? 01/08/2023 18:15 Protein, Total Urine Random 21 mg/dL ()?? 01/08/2023 18:15 TP/Cr Ratio 0.17 ()?? 01/08/2023 18:15 Creatinine, Urine 118.3 mg/dL ()?? 01/08/2023 18:15 Malb/Creat Ratio 29.4 mg/Gm (High)?? 01/08/2023 18:15 Urine Creat For Micro Alb 118.3 mg/dL ()?? 01/08/2023 18:15 Micro-Albumin 35.0 mg/L (High)?? 01/08/2023 18:15 Est Creatinine Clearance 31.22 mL/min ()?? 01/11/2023 02:32 ? VIROLOGY COVID-19 by RT-PCR NEGATIVE ()?? 01/03/2023 17:42 ? Blood Glucose Trend Glucose Level:??114 mg/dL??High (01/11/23 01:23:00) ? Microbiology ?? Blood Culture?? Completed?? Source: Blood Body Site: ?? Collected Dt/Tm: 01/03/2023 03:24 Last Updated Dt/Tm: 01/03/2023 03:24 ?SPECIMEN DESCRIPTION : BLOOD ??L HANDSPECIAL REQUESTS : NONECULTURE : NO GROWTH 5 DAYS.REPORT STATUS : FINAL 01/08/2023 Blood Culture #2?? Completed?? Source: Blood Body Site: ?? Collected Dt/Tm: 01/03/2023 03:24 Last Updated Dt/Tm: 01/03/2023 03:24 ?SPECIMEN DESCRIPTION : BLOOD ??R FOREARMSPECIAL REQUESTS : NONECULTURE : NO GROWTH 5 DAYS.REPORT STATUS : FINAL 01/08/2023 COVID-19 (Novel Coronavirus), Rapid PCR?? Completed?? Source: Nasal Body Site: Nose Collected Dt/Tm: 01/03/2023 17:35 Last Updated Dt/Tm: 01/03/2023 19:03 Sterile Body Fluid Culture W/ Gram Smear?? Completed?? Source: Joint Fluid Body Site: ?? Collected Dt/Tm: 01/05/2023 10:16 Last Updated Dt/Tm: 01/05/2023 14:18 ?SPECIMEN DESCRIPTION : JOINT FLUID T9 T10 DISC ASPIRATESPECIAL REQUESTS : PLEASE NOTE THAT CULTURE RESULTS MAY BE COMPROMISED BY THE LIMITED ? VOLUME OF SPECIMEN RECEIVEDGRAM STAIN : 4+RBC'S ?2+ POLYMORPHONUCLEAR LEUKOCYTES ?NO ORGANISMS SEENCULTURE : NO GROWTH 2 DAYSREPORT STATUS : FINAL 01/07/2023 ? 20??minutes spent on discharge ?? discussed with attending physician Dr. Dunn ?? Madhavi Rojas MD PGY-4, Internal Medicine-Pediatrics Pager: [phone] * Janie Russell DO: PERFORM Event Display: Discharge/Transfer Note Hospital Authored Date: Patient is no longer being discharged home today. Please use this note as a progress note. * Caio AUGUSTE, Quique: PERFORM Event Display: Discharge/Transfer Note Hospital Authored Date: Attending Attestation:??I have seen and evaluated this patient. ??I have discussed the case and itsmanagement with the resident and agree with the findings and plan as documented in the resident???snote. * Rhea Britton RN: PERFORM, SIGN, VERIFY Event Display: Case Management Discharge Plan Authored Date: [id number] Patient: LUIS ANGEL MIMS Age: 72 years Sex: Male : 1950 Associated Diagnoses: None Author: Rhea Britton RN Discharge Plan Case Management Discharge Plan : Case Management Discharge Plan Data 01/11/2023 14:57 EDT Discharge Level of Care at Discharge Homehealth/VNA Discharge VNA/Hospice/Home Care [facility] [phone] Discharge Medical Equipment [facility] [phone] Name of Agency #1 [facility] Name of Agency #1 [facility] Agency [facility]1 central intake Service Categories #1 Home IV antibiotics Service Comments #1 VNA services have been arranged to asst. you with administration of your IV antibx. Agency [facility]2 [facility] Service Categories #2 Home IV antibiotics, Other: [facility] Service Comments #2 [facility] [employer] will provide the IV antibx. and equptment for care of [facility]. Patient Care team information Care Team Personnel Name: Kavon AUGUSTE, Mookie Alvarado Position: [facility] Renal MD Member Role: Lifetime Consulting Physician Address: Address: [address] [place] [address], [address] Name: Nahed Crain RN Position: [facility] SN RN Member Role: Primary Care Nurse Name: Lex Tillman RN Position: [facility] RN Member Role: Primary Care Nurse Name: Shabana Newton MD Position: [facility] Physician - Primary Care Member Role: PCP Address: Address: [address] [place] [address] Name: Christi Feliciano Position: [facility] RN Member Role: Primary Care Nurse Name: Tamra Perez RN Position: [facility] RN Member Role: Primary Care Nurse Name: Wu Lake RN Position: [facility] RN Member Role: Primary Care Nurse Name: Bobby Quintanilla RN Position: [facility] RN Member Role: Primary Care Nurse Name: Shon Fleming MD Position: [facility] Renal MD Member Role: Lifetime Consulting Physician Address: Address: [address] [place] [address] [facility] [address] Name: Yennifer ORR Attending Position: [facility] ED Medicine MD Name: Kina Cobb Position: [facility] Associate Professional Member Role: ED Physician Management Technician Address: Address: [address] [place] [address]- Name: Lian Epstein Position: [facility] ED RN W/OE and Tasks Member Role: Patient Care Provider Name: Jhoan Child MA Position: [facility] ED TA [facility] Member Role: Patient Care Provider Name: Adolph Goldman Position: [facility] ED OA Charge Member Role: ED Associate Care Team Related Persons Name: MARK MIMS Address: [address] [address]
--- OUTSIDE RECORDS SUMMARY | 2023-05-28 20:42 | XMS_ITS | Continuity of Care Document ---
Author Name Unknown Organization [facility] Address [address] [place] [address] [address], [address] [place] [address]- Care Team Providers Care Tilt Wall Supervisor Name Role Phone Shabana Newton MD Primary Care Physician [phone] Encounter [facility] Date(s): 04/13/23 - 05/13/23 [facility] [address] [place] [address], [address] [place] [address]- Allergies, Adverse Reactions, Alerts Substance Reaction Severity [...] 03/07/23 20:14:00 EDT, Route to Pharmacy Electronically, [facility] # 302, Partial fill upon patient [...] retention. follow up with pcp and call [facility] to schedule outpatient appt for furthermgmt and refills., # 30 each, Refills 11, Tot. Re... Start Date: 02/28/23 Stop Date: 02/23/24 Status: Ordered gabapentin 300 mg oral capsule See Instructions, 1 capsule By Mouth morning and noon and 2 capsules at bedtime, # 120 each, Refills 5, Tot. Refills 5, Maintenance, 02/09/23 8:50:00 EDT, Instructions Replace Required Details, [facility], [facility] # 302,... Start Date: 02/09/23 Status: Ordered ipratropium 500 mcg/2.5 mL inhalation solution 500 mcg, 2.5, mL, Inhalation, 4 times a day, PRN, # 120 each, Refills 11, Tot. Refills 11, Maintenance, 04/18/23 12:19:00 EST, Solution, Route to Pharmacy Electronically, [id number], [facility] # 302, 175, cm, 04/13/23 1... [...] 3 Refills, Maintenance, 10/20/22 12:58:00 EDT, ECCapsule, [facility] # 302, 178, cm, 10/20/22 6:36:00 EDT, Height Start Date: 10/20/22 Status: Ordered oxyCODONE 10 mg oral tablet 1 tablet = 10 mg, By Mouth, 3 times a day, PRN Pain , Severe, for 28 days, # 84 tablet, 0 Refills, Acute 05/28/23 16:57:00 EST, 04/30/23 16:57:00 EST, [facility] # 302, Partial fill upon patientrequest [...] Team Personnel Name: Fadumo Aguilera RN Position: [facility] RN Member Role: Primary Care Nurse Name: Mookie Jacobson MD Position: [facility] Renal MD Member Role: Lifetime Consulting Physician Address: Address: [address] [place] [address] [address] [facility] [address]- [place] Name: Nahed Crain RN Position: [facility] SN RN Member Role: Primary Care Nurse Name: Thalia Murcia RN Position: S RN Member Role: Primary Care Nurse Name: Shabana Newton MD Position: [facility] Physician - Primary Care Member Role: PCP Address: Address: [address] [place] [address] [place] [address]- Name: Giorgi Schuster RN Position: [facility] RN Member Role: Primary Care Nurse Name: Jayashree Campo RN Position: S RN Supv Member Role: Primary Care Nurse Name: Daniel Dumont DO Position: S Renal MD Member Role: Lifetime Consulting Physician Address: Address: [address] [facility] [address] [facility] [place] [address]- Name: Tamra Perez RN Position: S RN Member Role: Primary Care Nurse Name: Haley Tilley RN Position: S RN Member Role: Primary Care Nurse Name: Ruchi Irwin RN Position: S RN Member Role: Primary Care Nurse Name: Bobby Quintanilla RN Position: S RN Member Role: Primary Care Nurse Name: Kg Blake MD Position: [facility] Renal MD Member Role: Lifetime Consulting Physician Address: Address: [address] [place] [address] [address] [facility] [place] [address]- [place] Name: Tena Holden RN Position: S RN Member Role: Primary Care Nurse Name: Shon Fleming MD Position: [facility] Renal MD Member Role: Lifetime Consulting Physician Address: Address: [address] [place] [address] [facility] [place] [address]- [place] Name: Katiuska Benito LPN Position: S RN Member Role: Primary Care Nurse Care Team Related Persons Name: STAR MIMS Address: [address] [place] [address]
--- OUTSIDE RECORDS SUMMARY | 2023-05-28 20:43 | XMS_ITS | Continuity of Care Document ---
Author Name Unknown Organization [facility] Address [address] [place] [address]- Care Team Providers Care Hand Winder Name Role Phone Shabana Newton MD Primary Care Physician Encounter [facility] Date(s): 01/22/23 - 02/21/23 [facility] [address] [place] [id number] Allergies, Adverse Reactions, Alerts Substance [...] 02/09/23 8:56:00 EDT, Route to Pharmacy Electronically, [facility] # 302, Partial fill upon [...] retention. follow up with pcp and call [facility] urology to schedule outpatient appt for furthermgmt and refills., # 30 tablet, Refills 0, Tot. R... Start Date: 01/31/23 Status: Ordered folic acid 1 mg oral tablet 1 mg, By Mouth, Daily, 1 tablet daily for nutrition. refills-contact pcp or purchase over the counter., # 30 tablet, Refills 0, Tot. Refills 0, Maintenance, 01/31/23 9:57:00 EDT, Route to Pharmacy Electronically, [facility], NO FURTHER R... Start Date: 01/31/23 Status: Ordered gabapentin 300 mg oral capsule See Instructions, 1 capsule By Mouth morning and noon and 2 capsules at bedtime, # 120 each, Refills 5, Tot. Refills 5, Maintenance, 02/09/23 8:50:00 EDT, Instructions Replace Required Details, [facility], [facility] # [facility],... Start [...] 3 Refills, Maintenance, 10/20/22 12:58:00 EDT, ECCapsule, [facility] # 302, 178, cm, 10/20/22 6:36:00 EDT, Height Start Date: 10/20/22 Status: Ordered oxyCODONE 10 mg oral tablet 1 tablet = 10 mg, By Mouth, Every 8 hours, hold for sedation/sleepiness, altered mental status, confusion, # 42 tablet, 0 Refills, Maintenance, 02/09/23 8:52:00 EDT, Tablet, [facility] # 302, Partial fill upon patient request if the prescription... Start Date: 02/09/23 Stop Date: 02/23/23 Status: Ordered pyridoxine 50 mg oral tablet 50 mg, By Mouth, Daily, 1 tablet daily for nutrition. Contact pcp or purchase over the counter for further refills., # 30 tablet, Refills 0, Tot. Refills 0, Maintenance, 01/31/23 9:55:00 EDT, Route to Pharmacy Electronically, [facility],... Start Date: 01/31/23 Status: Ordered thiamine 100 mg oral tablet 100 mg, By Mouth, Daily, 1 tablet daily for nutrition. refills-contact pcp or purchase over the counter., # 90 tablet, Refills 0, Tot. Refills 0, Maintenance, 01/31/23 9:57:00 EDT, Route to Pharmacy Electronically, [facility], NO FURTHER... Start Date: [...] Jacobson MD Position: [facility] Renal MD Member Role: Lifetime Consulting Physician Address: Address: [address] [place] [address], [address] [place] [address]- [place] Name: Nahed Crain RN Position: [facility] SN RN Member Role: Primary Care Nurse Name: Lex Tillman RN Position: S RN Member Role: Primary Care Nurse Name: Thalia Murcia RN Position: S RN Member Role: Primary Care Nurse Name: Shabana Newton MD Position: [facility] Physician - Primary Care Member Role: PCP Address: Address: [address] [place] [address] [place] [address]- Name: Giorgi Schuster RN Position: [facility] RN Member Role: Primary Care Nurse Name: Jayashree Campo RN Position: [facility] RN Supv Member Role: Primary Care Nurse Name: Christi Feliciano Position: S RN Member Role: Primary Care Nurse Name: Daniel Dumont DO Position: [facility] Renal MD Member Role: Lifetime Consulting Physician Address: Address: [address] [place], [place] [address]E [facility] [place] [address]- Name: Tamra Perez RN Position: [facility] RN Member Role: Primary Care Nurse Name: Haley Tilley RN Position: [facility] RN Member Role: Primary Care Nurse Name: Ruchi Irwin RN Position: [facility] RN Member Role: Primary Care Nurse Name: Bobby Quintanilla RN Position: [facility] RN Member Role: Primary Care Nurse Name: Kg Blake MD Position: [facility] Renal MD Member Role: Lifetime Consulting Physician Address: Address: [address] [place] [address] [address] [facility] [place] [place] [address]- Name: Tena Holden RN Position: [facility] RN Member Role: Primary Care Nurse Name: Shon Fleming MD Position: [facility] Renal MD Member Role: Lifetime Consulting Physician Address: Address: [address] [place] [address] [facility] [place] [address]- Name: Kaituska Benito LPN Position: [facility] RN Member Role: Primary Care Nurse Care Team Related Persons Name: MARK MIMS Address: [address] [address]
--- OUTSIDE RECORDS SUMMARY | 2023-05-28 20:43 | XMS_ITS | Continuity of Care Document ---
Author Name Unknown Organization [facility] Address [address] [place] [address]- Care Team Providers Care Roof Bolter Operator Name Role Phone Shabana Newton MD Primary Care Physician Encounter [facility] Date(s): 11/20/22 - 12/20/22 [facility] [address] [place] [id number] Allergies, Adverse Reactions, Alerts Substance [...] 05/15/22 9:40:00 EST, Route to Pharmacy Electronically, [facility] # 302, 177.8, cm, 05/15/22 9:07:00 [...] 3 Refills, Maintenance, 05/15/22 9:40:00 EST, Tablet, [facility] # 302, Partial fill upon patient request, 177.8, cm, 05/15/22 9:07:00 EST, Height Start Date: 05/15/22 Stop Date: 09/12/22 Status: Ordered bisoprolol-hydrochlorothiazide 10 mg-6.25 mg oral tablet 1 tablet, By Mouth, Daily, # 90 tablet, 3 Refills, Maintenance, 05/15/22 9:40:00 EST, Tablet, [facility] # 302, 1 tablet By Mouth Daily, 177.8, cm, 05/15/22 9:07:00 EST, Height Start Date: 05/15/22 Status: Ordered ibuprofen 800 mg oral tablet 1, tablet, By Mouth, 3 times a day, PRN, # 42 tablet, Refills 0, Maintenance, NEEDED FOR MODERATE PAIN FOR, 11/22/22 14:25:00 EDT, Route to Pharmacy Electronically, [facility] #[id number], 175, cm, 11/17/22 9:46:00 EDT, Height, 79.5, [...] 3 Refills, Maintenance, 10/20/22 12:58:00 EDT, ECCapsule, [facility] # [facility], 178, cm, [...] Team Personnel Name: Nahed Crain RN Position: [facility] SN RN Member Role: Primary Care Nurse Name: Lex Tillman RN Position: S RN Member Role: Primary Care Nurse Name: Shabana Newton MD Position: S Physician - Primary Care Member Role: PCP Address: Address: [address] [place] [address] [place] [address]- Name: Tamra Perez RN Position: S RN Member Role: Primary Care Nurse Name: Wu Lake RN Position: S RN Member Role: Primary Care Nurse Name: Bobby Quintanilla RN Position: S RN Member Role: Primary Care Nurse Care Team Related Persons Name: MARK MIMS Address: [address] [address]
--- OUTSIDE RECORDS SUMMARY | 2023-05-28 20:43 | XMS_ITS | Continuity of Care Document ---
Author Name Unknown Organization [facility] Address [address] [place] [address], [address] [place] [address]- Care Team Providers Care Evp General Counsel Name Role Phone Shabana Newton MD Primary Care Physician [phone] Encounter [facility] Date(s): 04/26/23 - 05/26/23 [facility] [address] [place] [address] Drive, [address] [place], [place] [address] Attending Physician: Admtr, Ar8 Admitting Physician: Admtr, Ar8 Referring Physician: Admtr, [...] 03/07/23 20:14:00 EDT, Route to Pharmacy Electronically, [facility] # 302, Partial fill upon patient [...] retention. follow up with pcp and call [facility] to schedule outpatient appt [...] Instructions Replace Required Details, [facility], [facility] # 302,... Start Date: 02/09/23 Status: Ordered ipratropium 500 mcg/2.5 mL inhalation solution 500 mcg, 2.5, mL, Inhalation, 4 times a day, PRN, # 120 each, Refills 11, Tot. Refills 11, Maintenance, 04/18/23 12:19:00 EST, Solution, Route to Pharmacy Electronically, [id number], [facility], 175, cm, [...] PRN Pain , Severe, for 28 days, CSA 28 Day; For Refill 05/28/2023, # 84 tablet, 0 Refills, Acute 06/22/23 9:52:00 EST, 05/25/23 9:52:00 EST, [facility], Partial fill upon patient request if the pre... Start Date: 05/25/23 Stop Date: 06/22/23 Status: Ordered Vitamin B12 1000 mcg oral [...] Team Personnel Name: Fadumo Aguilera RN Position: [facility] RN Member Role: Primary Care Nurse Name: Kavon AUGUSTE, Mookie Alvarado Position: [facility] Renal MD Member Role: Lifetime Consulting Physician Address: Address: [address] [place] [address] [address] [facility] [place] [address]- Name: Nahed Crain RN Position: [facility] SN RN Member Role: Primary Care Nurse Name: Thalia Murcia RN Position: S RN Member Role: Primary Care Nurse Name: Shabana Newton MD Position: [facility] Physician - Primary Care Member Role: PCP Address: Address: [address] [place] [address] [place] [address]- [place] Name: Giorgi Schuster RN Position: S RN Member Role: Primary Care Nurse Name: Jayashree Campo RN Position: S RN Cameron Member Role: Primary Care Nurse Name: Daniel Dumont DO Position: [facility] Renal MD Member Role: Lifetime Consulting Physician Address: Address: [address] [place] [address] [address] [facility] [place] [place] [address]- [place] Name: Tamra Perez RN Position: S RN Member Role: Primary Care Nurse Name: Haley Tilley RN Position: S RN Member Role: Primary Care Nurse Name: Ruchi Irwin RN Position: S RN Member Role: Primary Care Nurse Name: Bobby Quintanilla RN Position: S RN Member Role: Primary Care Nurse Name: Kg Blake MD Position: [facility] Renal MD Member Role: Lifetime Consulting Physician Address: Address: [address] [place] [address] [address] [facility] [place] [address]- [place] Name: Tena Holden RN Position: S RN Member Role: Primary Care Nurse Name: Shon Fleming MD Position: [facility] Renal MD Member Role: Lifetime Consulting Physician Address: Address: [address] [place] [address] [facility] [place] [address]- [place] Name: Katiuska Benito LPN Position: S RN Member Role: Primary Care Nurse Care Team Related Persons Name: STAR MIMS Address: [address] [place] [address]
[2023-05-28 21:14] LABS: Magnesium 1.6 mg/dL (1.6-2.6)
[2023-05-28] MEDS: ondansetron HCL 4 MG/2 ML VIAL IVPUSH (21:28)
[2023-05-28] MEDS: Morphine Sulfate 4 MG/ML CARTRIDGE IVPUSH (21:28)
--- NOTE | 2023-05-28 21:30 | PC.NURSE ---
pt medicated per mar for 10/10 left rib pain.
--- NOTE | 2023-05-28 21:30 | PC.NURSE ---
pt from home reporting left rib pain. pt reports he had fall sunday in a parking lot when he tripped and fell of step. pt reports being seen and told he has a broken left 10th rib. pt now reports increased pain without relief and reports he would like a cat scan. pt denies n/v/d. pt denies chest pain and denies any radiation of pain.
[2023-05-28] MEDS: iohexoL 350 MG/ML 100 ML INFUS..BTL IV (22:11)
[2023-05-28 22:42] LABS: INTERNATIONAL NORM RATIO 0.9 (0.9-1.1); Prothrombin Time 11.5 SEC (11.1-13.3)
[2023-05-28 23:52] VITALS: BP 151/90; PULSE 121; RESP 14; TEMP 36.1; O2SAT 98
[2023-05-29] MEDS: oxyCODONE HCl Immed Release 5 MG TABLET 10 MG PO (00:06)
== END 2023-05-29 00:12 | disposition home or self-care (01) ==
PROVIDERS: Physician Assistant Medical; Emergency Provider Internal Medicine; PCP Internal Medicine
DX: S22.32XA Fracture of one rib, left side, initial encounter for closed fracture (principal); R07.89 Other chest pain; R51.9 Headache, unspecified; M54.2 Cervicalgia; R10.2 Pelvic and perineal pain; W01.0XXA Fall on same level from slipping, tripping and stumbling without subsequent striking against object, initial encounter; Y93.9 Activity, unspecified; Y92.9 Unspecified place or not applicable; Y99.9 Unspecified external cause status; Z79.899 Other long term (current) drug therapy
CPT/HCPCS: 36415; 70450; 71101; 72125; 74177; 80048; 80076; 83690; 83735; 84484; 85025; 85610; 93005; 96374; 96375; 99284; 99285; J2270; J2405; Q9967

== ENCOUNTER → 2023-05-28 12:18 | Outpatient (BNV) | payer MEDICARE, SELFPAY | PROVIDERS: PCP Internal Medicine; Visit Provider Internal Medicine Cardiovascular Disease | DX: R07.9 Chest pain, unspecified (principal); R00.1 Bradycardia, unspecified | CPT/HCPCS: 93010 ==

== ENCOUNTER 2023-06-13 19:17 | Outpatient (REF) | payer MEDICARE, SELFPAY ==
--- NOTE | ~2023-06-13 | MR_ITS ---
EXAMINATION: MR LUMBAR SPINE WITHOUT CONTRAST CLINICAL INFORMATION: Low back pain. COMPARISON: CT from 05/28/2023. TECHNIQUE: Multiplanar, multisequence imaging was obtained. FINDINGS: VERTEBRAL BODIES AND PARASPINAL STRUCTURES: Chronic mild superior endplate compression fracture deformities are again visible at the T12, L1, and L2 levels. No significant osseous retropulsion is evident. No new compression fracture deformities are otherwise seen. There is a mild rightward curvature of the lumbar spine. Extensive chronic fatty marrow endplate changes noted with severe disc space narrowing at the L3-L4 and L4-L5 levels. The paraspinal soft tissues are grossly unremarkable. There are zkvf-uv-zjhkditm degenerative changes of the sacroiliac joints. There is mild trabecular wall thickening of the imaged bladder. CONUS MEDULLARIS AND CAUDA EQUINA: The distal cord, conus tip, and cauda equina nerve roots are normal. SPINAL LEVELS: T11-T12: Mild osseous retropulsion with minimal impression upon the ventral thecal sac. No disc protrusion or significant central canal stenosis. Patent neural foramina. T12-L1: No significant disc pathology. No central canal stenosis or foraminal narrowing. Mild facet arthropathy. L1-L2: Broad-based posterior disc bulge with mild facet arthropathy and thickening of the ligamentum flavum results in qjls-db-sxhfdzze central canal stenosis. A right subarticular zone disc protrusion impresses upon the right L2 nerve root. Bulging disc mildly encroaches upon the neural foramina. L2-L3: Tcgv-hk-eqyezxyv loss of disc height with chronic degenerative endplate changes. Diffuse disc bulge and hypertrophic facet arthropathy result in ixar-qd-usgpqxpy central canal stenosis. Mild left and moderate right foraminal narrowing with bulging disc contacting the exiting right L2 nerve root. L3-L4: Severe disc space narrowing and mild retrosubluxation with a diffuse disc bulge and facet arthropathy. Very small central disc protrusion as well. Findings result in moderate central canal stenosis. Moderate to severe bilateral foraminal narrowing with osseous spurring and bulging disc mildly distorting the exiting L3 nerve roots. L4-L5: Mild posterior subluxation and diffuse disc bulge with hypertrophic facet degeneration and infolding of the ligamentum flavum results in severe central canal stenosis and thecal sac compression with mass effect upon both L5 nerve roots in the subarticular zones. Severe left foraminal narrowing with bulging disc and facet spurring impressing upon the exiting left L4 nerve root. Moderate right foraminal narrowing. L5-S1: Very small central disc protrusion. Wihn-np-wohhqoxt facet arthropathy without central canal stenosis. Bulging disc and facet spurring mild to moderately distort the exiting right L5 nerve root with moderate foraminal encroachment. MR/MR lumbar spine wo con IMPRESSION: 1. Extensive multilevel degenerative disc disease and facet arthropathy with a mild rightward lumbar spinal curvature. Stable chronic mild superior endplate compression fracture deformities at the T12, L1, and L2 levels. No new compression fracture deformities. 2. Eayv-ci-czqqbafr central canal stenosis at the L1-L2 level with a right subarticular zone disc protrusion impressing upon the right L2 nerve root. 3. Lmki-vb-uljfettk central canal stenosis at the L2-L3 level with moderate right foraminal narrowing and bulging disc contacting the right L2 nerve root. 4. Severe degenerative disc disease at the L3-L4 level with moderate central canal stenosis and moderate to severe foraminal narrowing with mild distortion of both L3 nerve roots. 5. Posterior subluxation and disc bulge with facet arthropathy at L4-L5 resulting in severe central canal stenosis and thecal sac compression. Mass effect upon both L5 nerve roots in the subarticular zones. Severe left foraminal narrowing with mass effect upon the left L4 nerve root. 6. Bulging disc and facet spurring mild to moderately distort the exiting right L5 nerve root at the L5-S1 level with moderate right foraminal encroachment.
== END 2023-06-13 19:18 | disposition home or self-care (01) ==
LOC: HO.MRI 19:17
PROVIDERS: PCP Internal Medicine; Visit Provider Physician Assistant
DX: M54.50 Low back pain, unspecified (principal)
CPT/HCPCS: 72148

== ENCOUNTER 2023-06-19 13:57 | Outpatient (AMB) | payer MEDICARE, SELFPAY ==
--- NOTE | 2023-06-19 13:58 | MHC.OFFVIS ---
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 We were able to review his MRI of the lumbar spine which showed severe central canal stenosis at L4-5 alongside multilevel degenerative changes throughout the lumbar spine. After reviewing the imaging with Dr. Johnson it was noted that the worst of his pathology can be seen at L4-5. Dr. Johnson met the patient and offered him a L4-5 midline sparing decompression. We discussed the risks/benefits of this procedure, and also discussed continuing conservative measurement via other means. We did discuss the possibility of cortisone injections, but we feel that that would be of minimal utility at this time given the severity of his central canal stenosis. Luis Angel was given risk and benefits of surgery including but not limited to infection, hematoma, nerve injury, durotomy, weakness, bowel/bladder injury, persistent pain, as well as the option to continue with conservative treatment and patient wishes to proceed with surgery. He is aware he should stop NSAIDs 7 days prior to surgery. All questions were answered to the best of our ability. If there is anything about this patients medical history that we have overlooked or concerns you have about us proceeding with surgery we would appreciate any input you can offer. Total amount of time spent in this visit was 20 minutes in review of symptoms, MRI imaging results and subsequent plan of care Collin Johnson MD,PhD [facility] Coding Level of Care Code Est Pt Level 3 (53502) Diagnoses Spinal stenosis M48.00
== END 2023-06-19 14:36 | disposition home or self-care (01) ==
PROVIDERS: PCP Internal Medicine; Visit Provider Physician Assistant
DX: M48.00 Spinal stenosis, site unspecified (principal)
CPT/HCPCS: 99213

== ENCOUNTER → 2023-06-19 13:57 | Outpatient (BNVA) | payer MEDICARE, SELFPAY | PROVIDERS: PCP Internal Medicine; Visit Provider Physician Assistant | DX: M48.00 Spinal stenosis, site unspecified (principal) | CPT/HCPCS: 99212 ==

== ENCOUNTER 2023-08-30 06:45 | Day surgery (SDC) | payer MEDICARE, SELFPAY ==
[2023-08-16 13:41] VITALS: BP 98/60; PULSE 110; RESP 18; O2SAT 95; BMI 24.2
--- NOTE | 2023-08-16 13:57 | HO.ANESPROP2 ---
Documented by User: Gloria Floyd NP 08/29/23 09:59 HPI - Anesthesia Eval Consult details Narrative: 73yo M for L4-5 Midline Sparing Decompression, 08/30/23 No recent illness No CP/SOB within limits of back pain Hyponatremia. Follows nephro. Awaiting info Daily ETOH: at least 6 beers daily. Will slowly decrease preop. Denies hx of withdrawal and states won't be an issue to cut back GERD. ppi controls Chronic opioids. Oxy 10 mg 2-3 x daily Serum sodium down to 124. Renal note from 06/2023 reviewed. Plan was to start on urea powder if less than 130. Pt denies starting any rx. Also, no mention of high ETOH intake. 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 Per Dr Dumont (nephro) ok to proceed with surgery. Will repeat Na level Case reviewed with Dr Sandra [facility] Active Problems Active Problems: All Active Problems (Updated 08/16/23 @ 13:53 by Cassandra Hollis RN) Spinal stenosis (Acute) Lumbago (Acute) Eczematous dermatitis (Acute) Shoulder subluxation, right (Acute) Dislocation of shoulder, right, closed (Acute) Shoulder pain (Acute) Past Medical History Medical History Dyspnea on exertion Osteoarthritis Erectile dysfunction Hypercholesteremia Diskitis Tubular adenoma SIAD (syndrome of inappropriate antidiuresis) Thoracic aortic aneurysm Constipation CAD (coronary artery disease) History of rib fracture Hard of hearing History of MRSA infection Back pain GERD (gastroesophageal reflux disease) Weakness Habitual snoring High cholesterol Hypertension Family History Family history of problems with anesthesia: No Surgical History Surgical History History of esophagogastroduodenoscopy (EGD) Hx of tonsillectomy History of total right knee replacement Hx of cataract extraction H/O colonoscopy Knee joint replacement status History of Problems with Anesthesia: No Social History Social History Are you a primary managed care coordinator to a significant other at home: No Do you presently have visiting nurse or other home services: No Alcohol intake: current Alcohol intake frequency: 3 or more drinks per day Alcohol type: beer Patient Tobacco Use Status: Former Tobacco user Use of substances other than those prescribed or required for medical reasons: No Have you been hit, kicked, punched, or otherwise hurt by someone within the past year? 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 Meds Allergies Allergy/AdvReac Type Severity Reaction Status Date / Time Penicillins AdvReac swollen Verified 08/30/23 07:11 Home Medications Medication Instructions Recorded Confirmed Last Taken Type atorvastatin 40 mg tablet 40 mg PO DAILY 06/03/22 08/16/23 Unknown History omeprazole 20 mg capsule,delayed 20 mg PO DAILY 06/03/22 08/16/23 08/30/23 History release amlodipine 10 mg tablet 10 mg PO DAILY 08/16/23 08/16/23 08/30/23 History oxycodone 10 mg tablet 10 mg PO TID PRN Pain 08/16/23 08/16/23 Unknown History tamsulosin 0.4 mg capsule 0.4 mg PO DAILY 08/16/23 08/16/23 08/30/23 History furosemide 20 mg tablet 20 mg PO DAILY 08/20/23 08/20/23 Unknown History sodium chloride 1,000 mg soluble 1,000 mg PO TID 08/20/23 08/20/23 Unknown History tablet Exam Height,Weight and Vital Signs: Height 5 ft 9 in Weight 74.389 kg Last Vital Signs Pulse 110 H 08/16/23 13:41 Resp 18 08/16/23 13:41 BP 98/60 08/16/23 13:41 Pulse Ox 95 08/16/23 13:41 O2 Del Method Room Air 08/16/23 13:41 Pertinent Lab Results Pertinent Lab Results: Lab Results 08/16/23 Range/Units 14:40 Sodium 124 L (135-145) mmol/L Potassium 4.0 (3.3-5.1) mmol/L Chloride 90 L (96-108) mmol/L Carbon Dioxide 27 (22-29) mmol/L Anion Gap 11 L (12-20) BUN 20 H (9-16) mg/dL Creatinine 0.87 (0.5-1.4) mg/dL Estim Creat Clear Calc 74.4 Estimated GFR > 60 Random Glucose 152 H (60-115) mg/dL Calcium 9.1 D (8.4-10.2) mg/dL Magnesium 1.6 (1.6-2.6) mg/dL Total Bilirubin 1.1 H (0.0-1.0) mg/dL AST 15 (5-37) U/L ALT 11 (0-40) U/L Alkaline Phosphatase 71 (39-117) U/L Total Protein 6.5 (6.5-8.0) g/dL Albumin 4.2 (3.5-5.0) g/dL Narrative Narrative: EKG 05/2023 Vent. Rate : 104 BPM Atrial Rate : 104 BPM P-R Int : 134 ms QRS Dur : 086 ms QT Int : 346 ms P-R-T Axes : 036 -24 033 degrees QTc Int : 454 ms Sinus tachycardia Possible Left atrial enlargement Minimal voltage criteria for LVH, may be normal variant ( R in aVL ) Cannot rule out Anterior infarct , age undetermined Abnormal ECG When compared with ECG of 09-OCT-2020 05:01, No significant change was found Airway Mallampati Class: III TM Dist: >3cm Neck ROM: Full Partial: Lower Loose/Missing/Broken Teeth: No (All remaing teeth stable per pt, ~#5 is implant) Heart: Tachy, regular Lungs: CTAB Assessment and Plan Assessment Anesthesia Assessment: Anesthesia Plan Discussed and PAT Visit Final Anesthetic Review Family History of Problems with Anesthesia: No History of Problems with Anesthesia: No Documented by User: Inocencio Sandra MD 08/30/23 08:08 HPI - Anesthesia Eval Consult details Narrative: 73yo M for L4-5 Midline Sparing Decompression, 08/30/23 No recent illness No CP/SOB within limits of back pain Hyponatremia. Follows nephro. Awaiting info Daily ETOH: at least 6 beers daily. Will slowly decrease preop. Denies hx of withdrawal and states won't be an issue to cut back GERD. ppi controls Chronic opioids. Oxy 10 mg 2-3 x daily Serum sodium down to 124. Renal note from 06/2023 reviewed. Plan was to start on urea powder if less than 130. Pt denies starting any rx. Also, no mention of high ETOH intake. 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 Per Dr Dumont (nephro) ok to proceed with surgery. Will repeat Na level Case reviewed with Dr Sandra Sodium improved to 130 on morning of surgery PMFSH Past Medical History Medical History Dyspnea on exertion Osteoarthritis Erectile dysfunction Hypercholesteremia Diskitis Tubular adenoma SIAD (syndrome of inappropriate antidiuresis) Thoracic aortic aneurysm Constipation CAD (coronary artery disease) History of rib fracture Hard of hearing History of MRSA infection Back pain GERD (gastroesophageal reflux disease) Weakness Habitual snoring High cholesterol Hypertension Surgical History Surgical History History of esophagogastroduodenoscopy (EGD) Hx of tonsillectomy History of total right knee replacement Hx of cataract extraction H/O colonoscopy Knee joint replacement status Social History Social History Are you a primary managed care coordinator to a significant other at home: No Do you presently have visiting nurse or other home services: No Alcohol intake: current Alcohol intake frequency: 3 or more drinks per day Alcohol type: beer Patient Tobacco Use Status: Former Tobacco user Use of substances other than those prescribed or required for medical reasons: No Have you been hit, kicked, punched, or otherwise hurt by someone within the past year? 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 Meds Allergies Allergy/AdvReac Type Severity Reaction Status Date / Time Penicillins AdvReac swollen Verified 08/30/23 07:11 Home Medications Medication Instructions Recorded Confirmed Last Taken Type atorvastatin 40 mg tablet 40 mg PO DAILY 06/03/22 08/16/23 Unknown History omeprazole 20 mg capsule,delayed 20 mg PO DAILY 06/03/22 08/16/23 08/30/23 History release amlodipine 10 mg tablet 10 mg PO DAILY 08/16/23 08/16/23 08/30/23 History oxycodone 10 mg tablet 10 mg PO TID PRN Pain 08/16/23 08/16/23 Unknown History tamsulosin 0.4 mg capsule 0.4 mg PO DAILY 08/16/23 08/16/23 08/30/23 History furosemide 20 mg tablet 20 mg PO DAILY 08/20/23 08/20/23 Unknown History sodium chloride 1,000 mg soluble 1,000 mg PO TID 08/20/23 08/20/23 Unknown History tablet Assessment and Plan Final Anesthetic Review NPO: Yes ASA Class: III Final Preanesthetic Review: No Changes in Pt Med Stat, Meds/Allgs Chart Reviewed, Consent Obtained/Reviewed and Anes Risks/Benef Reviewed Patient Risk: Intermediate Procedure Risk: Intermediate Assessment/Block/Sedation in SS: Assess/Block/Sedation-SS Anesthetic Plan Anesthetic Plan: GA Disposition: Standard PACU
[2023-08-16 15:27] LABS: Alanine Aminotransferase 11 U/L (0-40); Albumin Level 4.2 g/dL (3.5-5.0); Alkaline Phosphatase 71 U/L (39-117); Anion Gap 11 (12-20); Aspartate Amino Transferase 15 U/L (5-37); Bilirubin Total 1.1 mg/dL (0.0-1.0); Blood Urea Nitrogen 20 mg/dL (9-16); Calcium 9.1 mg/dL (8.4-10.2); Carbon Dioxide 27 mmol/L (22-29); Chloride 90 mmol/L (96-108); Creatinine Clr Calc Pharmacy 74.4; Estimated Glomerular Filt Rate > 60; Glucose Random 152 mg/dL (60-115); Magnesium 1.6 mg/dL (1.6-2.6); Sodium 124 mmol/L (135-145); Total Protein 6.5 g/dL (6.5-8.0)
--- NOTE | ~2023-08-30 | FL_ITS ---
EXAMINATION: XR FLUOROSCOPY WITH IMAGES CLINICAL INFORMATION: L4-L5 midline sparing decompression. COMPARISON: Portions of the MRI lumbar spine dated 06/13/2023. TECHNIQUE: Fluoroscopy Supervised By: Dr. Omer Johnson. Fluoroscopy Time: 0.0 minutes. Cumulative Dose: 1.74 mGy. DAP: 0.474 Gycm2. Images: 1. FINDINGS: The submitted image shows a probe with tip situated at the L4-L5 posterior elements. FL/FL guidance in OR IMPRESSION: Intraoperative fluoroscopic guidance is provided during L4-L5 decompression surgery. Please see the patient's Operative Report for full procedural details.
--- NOTE | 2023-08-30 07:06 | MHC.SHP ---
Pre-Procedural Eval Section A - 24 Hr Update-Section A only Date of Service: 08/30/23 The patient is an INPATIENT: No Changes since office visit: No Cold of Flu in the past 2 weeks, No New Medical Problems, No Changes in Medication and No Patient answered all questions The patient has been examined within 24 hours of the surgical procedure. The History & Physical has been completed within 30 days and I have reviewed it.: No Section B - Complete if H&P > 30 days Chief Complaint: Spinal stenosis, site unspecified Allergies: Allergies Allergy/AdvReac Type Severity Reaction Status Date / Time Penicillins AdvReac swollen Verified 10/21/22 11:51 Review of Systems Sugical H&P ROS: Negative: Constitution, Cardiovascular, Respiratory, Neurological, Psychiatric, Hem-Onc, Allergic/Immunologic, Gastrointestinal, Genitourinary, Musculoskeletal, Integumentary, Endocrine and Eyes/Ears/Nose/Throat Exam Surgical H&P Exam: Not Evaluated: HEENT, Not Evaluated: Heart, Not Evaluated: Lungs, Not Evaluated: Extremities, Not Evaluated: Abdomen, Not Evaluated: Skin and Not Evaluated: Neurological Plan Diagnosis/Plan: Unchanged L4-5 midline sparing decompression Time Spent With Patient Time: Total time managing care of this patient today _7___ minutes.
[2023-08-30 07:17] VITALS: BMI 24.4
[2023-08-30 07:20] VITALS: BP 144/89; PULSE 93; RESP 18; TEMP 36.7; O2SAT 98
[2023-08-30] MEDS: Lactated Ringers 1,000 ML 100 ML IVCONT (07:21)
[2023-08-30 07:37] LABS: Anion Gap 16 (12-20); Carbon Dioxide 26 mmol/L (22-29); Chloride 92 mmol/L (96-108); Potassium 3.6 mmol/L (3.3-5.1); Sodium 130 mmol/L (135-145)
[2023-08-30] MEDS: vancomycin HCL 1,000 MG in 0.9 % Sodium Chloride 250 ML 270 MG IV (08:27)
[2023-08-30] MEDS: Gabapentin 300 MG CAPSULE PO (08:32)
[2023-08-30] MEDS: methocarbamoL 750 MG TABLET PO (08:32)
--- NOTE | 2023-08-30 08:49 | P.DS_ITS ---
DS: Providers Provider Date of Service: 08/30/23 Date of discharge: 08/30/23 Primary care physician: Shabana Newton MD Admitting clinician: Amado Johnson DS: Diagnosis Discharge Diagnosis (1) Spinal stenosis: Status: Acute DS: Summary Time Attestation Discharge Coordination Time (in mins): 4 Quality: Safe Use of Opioids Does Pt have an Active Cancer Diagnosis on the Problem List?: No Quality: Stroke Does the patient have a stroke diagnosis?: No Physical Exam Vital Signs: Vital Signs: Last Vital Signs Temp 98.0 F 08/30/23 07:20 Pulse 93 08/30/23 07:20 Resp 18 08/30/23 07:20 BP 144/89 H 08/30/23 07:20 Pulse Ox 98 08/30/23 07:20 O2 Del Method Room Air 08/30/23 07:20 BMI result Body Mass Index 24.4 DS: Data Data Completed and Pending Labs on day of discharge: Laboratory Results - last 24 hr 08/30/23 07:20 Sodium 130 L Potassium 3.6 Chloride 92 L Carbon Dioxide 26 Anion Gap 16 Discharge Plan Discharge Patient Disposition: Home, Self-Care Referrals: Shabana Newton MD [Primary Care Provider] - 1 Week Discharge Medications: Continued amlodipine 10 mg tablet 10 mg PO DAILY oxycodone 10 mg tablet 10 mg PO TID PRN (Reason: Pain) tamsulosin 0.4 mg capsule 0.4 mg PO DAILY sodium chloride 1,000 mg Tablet,Soluble 1,000 mg PO TID furosemide 20 mg tablet 20 mg PO DAILY omeprazole 20 mg capsule,delayed release(DR/EC) 20 mg PO DAILY atorvastatin 40 mg tablet 40 mg PO DAILY triamcinolone acetonide 0.025 % cream 1 appl topical BID Qty: 15 1RF Discharge Orders: Discharge Order (Routine); Ordered 08/30/23 Ordered By: Jose Martion Diet: Advance to usual diet Activity on Discharge: As tolerated Activity Restrictions/Additional Instructions: After your spinal surgery we ask you to observe the following restrictions/guidelines: Activity: It is normal to feel some discomfort as you increase your activity, but that will improve with time. We ask you avoid heavy lifting or acitivities that cause pain. As a general r ule, 8lbs is a safe limit for lifting right after surgery. Walk as much as you feel comfortable but not to exhaustion. You will feel extra tired the first few days after surgery. Stay well hydrated. It is OK to walk up and down stairs You may return to driving when you are off narcotics (such as vicodin, oxycodone, dilaudid, etc), and you are back to normal functional capacity. If you have any concerns please check with office before driving. Return to work is specific to each patient and each surgery, so please speak with your doctor/PA at first follow up. Please bring paperwork such as FMLA at that time if you need it filled out. Medications: For optimum pain control, it is best to start with a combination of 500 mg of Tylenol every 4 hours with 600 mg of Motrin every 8 hours, and use narcotics as needed in between for breakthrough pain. We will give you a short supply of narcotics after surgery (usually one weeks worth). If you need more please call the office but do not use more than prescribed. You will need to give our office 48 hours notice if you need narcotics refilled and we do not fill narcotics on weekends or evenings. If you are on a narcotic, it is a good idea to take a stool softener such as colace or senna to avoid constipation If you take blood thinner such as aspirin, Plavix, Coumadin, Effient, Eliquis etc for conditions such as Afib, DVT, Pulmonary embolus, coronary disease, stents etc please speak with your surgeon about specific details as to when you can resume these medications. You can resume NSAIDs on post op day 1 (eg: Motrin, Naproxen, etc). Follow up: Please call the office, , after surgery to arrange a 3 week follow up for wound check. Wound Care: You may remove your dressing on the first day after surgery. ?You may ?leave open to air. Please do not remove the steri strips underneath. they will fall off on their own in one week. IT IS NORMAL FOR THE WOUND TO OOZE OR BE BLOODY FOR A FEW DAYS AFTER SURGERY. ?IF THIS HAPPENS JUST PLACE NEW DRESSING OVER IT TO AVOID STAINING CLOTHES. You may shower on post op day # 1 We ask that you do not let the water soak the wound. If it does get wet, just towel dry lightly. Please do not scrub your incision or place any type of chemical/ointment on the wound. No tub baths, pools or jacuzzis for one month. If you have any leaking or redness from your wound, or fevers, please call office
--- NOTE | 2023-08-30 09:49 | W.PM.OPN ---
Operative Note Operative Note Date of Service: 08/30/23 Narrative: Preoperative Diagnosis: L4-5 spinal stenosis/lateral recess stenosis/neural foraminal stenosis Operation: L4-5 Laminotomy, Partial facetectomy and foraminotomy with use of microscope Consent Informed Consent was obtained for this operation. I have explained the nature, purpose and benefits of the operation. I have discussed the risks and benefit of the operation including possible complications or adverse events with patient/family. Alternative(s) were discussed with the patient with their relative benefits and risks as well as the consequences of not accepting the operation were included in obtaining consent. Surgeon: ALYSHA OBRIEN MD, PHD Procedure Assisted By: Jose Hobbs Description of Procedure This patient is suffering from neurogenic claudication due to L4-5 spinal stenosis. The patient was offered a decompression. The procedure complications were explained. The patient was consented. The patient was brought to the operating room and endotracheally intubated. The patient was turned in prone position on the Aleksandar frame. Prep and drape was done followed by timeout. The Physician physical therapy assistant provided access. A mid lumbar incision was made followed by release of the paravertebral muscle on the left side to expose the L4-5 lamina and facet joints. An intraoperative x-ray was obtained to confirm the correct level. The microscope was brought in. I took over the procedure. The high-speed drill was used to do a L4 and L5 laminotomy until flavum ligament was reached. A #2 Kerrison was used to expand the laminotomy near flush to the pedicles and to include a partial facetectomy. The flavum ligament was opened and resected with a #3 Kerrison to decompress the underlying thecal sac. The flavum ligament was removed to decompress the lateral recess and the exiting L5 nerve root A long nerve hook could be easily passed along the medial side of the pedicles as a sign of adequate decompression. Then the patient was turned contralaterally and the spinous process was undercut followed by decompression of the contralateral side with a 2. And 3 Kerrison. A good decompression of the contralateral L5 nerve root was obtained. The microscope was removed. Hemostasis was done. The physician physical therapy assistant close the Incision in 2 layers. Steri-Strips were used to approximate incision. An OpSite with Tegaderm was used to cover the incision. All sponge needle counts were correct. Patient was extubated and transported in stable is to recovery room. Anesthesia: General Estimated Blood Loss (ml): 20 mL Complications: None Duration of Surgery: Under 45 Minutes Postoperative Plan: Discharge to home
[2023-08-30 10:00] VITALS: BP 136/74; PULSE 90; RESP 16; TEMP 36.6; O2SAT 100
[2023-08-30 10:05] VITALS: BP 128/78; PULSE 90; RESP 16; O2SAT 96
[2023-08-30 10:10] VITALS: BP 120/71; PULSE 88; RESP 16; O2SAT 94
[2023-08-30 10:14] VITALS: BP 115/71; PULSE 89; RESP 18; O2SAT 96
[2023-08-30] MEDS: oxyCODONE HCl Immed Release 5 MG TABLET PO (10:25)
[2023-08-30 10:30] VITALS: BP 120/81; PULSE 91; RESP 16; TEMP 36.4; O2SAT 96
== END 2023-08-30 11:12 | disposition home or self-care (01) ==
PROVIDERS: Nurse Practitioner; PCP Internal Medicine; Visit Provider Neurological Surgery
PROC: (CPT 63047; principal; 2023-08-30 09:10)
DX: M48.061 Spinal stenosis, lumbar region without neurogenic claudication (principal); M51.36 Other intervertebral disc degeneration, lumbar region; I10 Essential (primary) hypertension; I25.10 Atherosclerotic heart disease of native coronary artery without angina pectoris; E78.00 Pure hypercholesterolemia, unspecified; Z86.14 Personal history of Methicillin resistant Staphylococcus aureus infection; Z79.899 Other long term (current) drug therapy; Z88.0 Allergy status to penicillin; Z87.891 Personal history of nicotine dependence
CPT/HCPCS: 63047; 36415; 80051; 80053; 83735; J0131; J1100; J1885; J2250; J2405; J2598; J2704; J3010; J3370

== ENCOUNTER → 2023-08-30 06:45 | Outpatient (BNV) | payer MEDICARE, SELFPAY | PROVIDERS: PCP Internal Medicine; Visit Provider Neurological Surgery | DX: M48.062 Spinal stenosis, lumbar region with neurogenic claudication (principal) | CPT/HCPCS: 63047; 99499 ==

== ENCOUNTER 2023-09-20 10:56 | Outpatient (AMB) | payer MEDICARE, SELFPAY ==
--- NOTE | 2023-09-20 11:02 | HO.SPINEOV ---
Intake Intake Visit Reasons: 1st post op Intake Note: Mr. Scott is here today for 1st Post-op. 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 He reports that the bulk of his symptoms since surgery have resolved. He still has some pain in his low back, which is well treated with wcir-mkt-ymydpzb pain medications in the occasional oxycodone. He is able to ambulate well, and is completing all of his ADLs around the home. He has many questions regarding postoperative care including upcoming travel to [place] via a plane flight. He was encouraged that this should be fine, however he was instructed to get up several times throughout the flight to walk around. No new neurological deficits. Patient is able to ambulate well, rises from a seated position without difficulty. Incision sites are closed, well healing, with no signs of drainage. We will follow-up with the patient in 6 weeks for his 2nd postoperative visit. I partially refilled his oxycodone prescription which appears to have been previously prescribed by an outpatient provider that may not be continually prescribing as the last prescription was not filled since the beginning of August per his mass pat. Collin Johnson MD,PhD [facility] Medications: New oxycodone Partial Fill upon patient request. 5 mg PO Q8H PRN 21 tabs 0RF severe pain (scale score 7-10) Coding Level of Care Code Global (83596) Diagnoses Spinal stenosis M48.00 S/P spinal surgery Z98.890
== END 2023-09-20 11:36 | disposition home or self-care (01) ==
PROVIDERS: PCP Internal Medicine; Visit Provider Physician Assistant
DX: M48.00 Spinal stenosis, site unspecified (principal); Z98.890 Other specified postprocedural states
CPT/HCPCS: 99024

== ENCOUNTER → 2023-09-20 10:56 | Outpatient (BNVA) | payer MEDICARE, SELFPAY | PROVIDERS: PCP Internal Medicine; Visit Provider Physician Assistant | DX: M48.00 Spinal stenosis, site unspecified (principal); Z98.890 Other specified postprocedural states | CPT/HCPCS: 99212 ==

== ENCOUNTER 2023-10-29 10:02 | Outpatient (AMB) | payer MEDICARE, SELFPAY ==
--- NOTE | 2023-10-29 10:06 | HO.SPINEOV ---
Intake Visit Reasons: 2nd post op Intake Note: Mr. Scott is here today for his 2nd Post-op appointment. 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 He unfortunately continues to complain of low back pain. He was able to go on his vacation to [place], and states he had no issues with the plane ride. Additionally, he has been completing all of his ADLs around his home, including yard work. He is accompanied by his today who expresses concerns that he is still in pain despite his surgery. Luis Angel did report that he feels much better than he did prior to surgery, but is concerned that he still has pain. Additionally, some concerns were raised regarding a potential bone infection which he previously had, in has since been cleared via lab work and imaging. Luis Angel was encouraged that he likely does not have a subsequent bone infection as he would be in severe agonizing pain throughout the day if he did. It seems as though he is still dealing with some postoperative changes/pain. I would like to send Luis Angel for 6 weeks of physical therapy and see him back in the office after that. He also would like a referral for pain management to discuss pain control options. I did obtain a set of flexion/extension x-rays of the lumbar spine and basic radiographs of the thoracic spine to ensure no new instability. When compared to the CT scans that he has in his chart already, it seems as though he continues to be at his baseline. There have been no notable changes since his surgery as far as I can tell. Collin Johnson MD,PhD [facility] Orders: Orders XR lumbar spine 4V min Today Z98.890 - Other specified postprocedural states XR thoracic spine 2V Today Z98.890 - Other specified postprocedural states PT Evaluation and Treatment Today Z98.890 - Other specified postprocedural states Referrals Pain Management Referral Z98.890 - Other specified postprocedural states Medications: New methocarbamol 750 mg PO BID 20 tabs 0RF Coding Level of Care Code Global (35863) Diagnoses S/P spinal surgery Z98.890
== END 2023-10-29 10:19 | disposition home or self-care (01) ==
PROVIDERS: PCP Internal Medicine; Visit Provider Physician Assistant
DX: Z98.890 Other specified postprocedural states (principal)
CPT/HCPCS: 99024

== ENCOUNTER 2023-10-29 10:02 | Outpatient (REF) | payer MEDICARE, SELFPAY ==
--- NOTE | ~2023-10-29 | XR_ITS ---
EXAMINATION: XR THORACIC SPINE AND LUMBAR SPINE CLINICAL INFORMATION: Postprocedural status. COMPARISON: MR lumbar spine 06/13/2023. Left ribs 05/28/2023. Chest 10/09/2022. CT abdomen and pelvis of 05/28/2023. TECHNIQUE: 2 views of the thoracic spine. 4 views of the lumbar spine. FINDINGS: Thoracic Spine: The bones are diffusely demineralized. Degenerative changes on very limited images of the cervical spine could be evaluated with dedicated cervical spine radiographs. Atherosclerotic calcifications in the aortic knob. Severe compression deformities with loss of the disc space at T9-T10 not appreciated on chest radiographs of October 09, 2022. Lumbar Spine: Bones are diffusely demineralized. Facet arthritis in the lower lumbar spine. Extensive atherosclerotic calcifications in the thoracoabdominal aorta. Degenerative changes in the bilateral sacroiliac joints. Decompression surgery at L4-L5 on 08/30/2023 fluoroscopic exam. Redemonstration of compression fractures at T12, L1 and L2. Multilevel lumbar spondylosis with degenerative changes and loss of disc space height most severe at L4-L5. Grade 1 retrolisthesis of L1 on L2 with flexion and extension. Minimal Grade 1 retrolisthesis of L3 on L4, and of L4 on L5 with extension. XR/XR thoracic spine 2V IMPRESSION: Severe compression deformities with loss of the disc space at T9-T10 not appreciated on chest radiographs of 10/09/2022. Dedicated CT scan or MRI should be considered for further evaluation. Redemonstration of compression fractures at T12, L1 and L2. Multilevel lumbar spondylosis with degenerative changes and loss of disc space height most severe at L4-L5.
--- NOTE | ~2023-10-29 | XR_ITS ---
EXAMINATION: XR THORACIC SPINE AND LUMBAR SPINE CLINICAL INFORMATION: Postprocedural status. COMPARISON: MR lumbar spine 06/13/2023. Left ribs 05/28/2023. Chest 10/09/2022. CT abdomen and pelvis of 05/28/2023. TECHNIQUE: 2 views of the thoracic spine. 4 views of the lumbar spine. FINDINGS: Thoracic Spine: The bones are diffusely demineralized. Degenerative changes on very limited images of the cervical spine could be evaluated with dedicated cervical spine radiographs. Atherosclerotic calcifications in the aortic knob. Severe compression deformities with loss of the disc space at T9-T10 not appreciated on chest radiographs of October 09, 2022. Lumbar Spine: Bones are diffusely demineralized. Facet arthritis in the lower lumbar spine. Extensive atherosclerotic calcifications in the thoracoabdominal aorta. Degenerative changes in the bilateral sacroiliac joints. Decompression surgery at L4-L5 on 08/30/2023 fluoroscopic exam. Redemonstration of compression fractures at T12, L1 and L2. Multilevel lumbar spondylosis with degenerative changes and loss of disc space height most severe at L4-L5. Grade 1 retrolisthesis of L1 on L2 with flexion and extension. Minimal Grade 1 retrolisthesis of L3 on L4, and of L4 on L5 with extension. XR/XR lumbar spine 4V min IMPRESSION: Severe compression deformities with loss of the disc space at T9-T10 not appreciated on chest radiographs of 10/09/2022. Dedicated CT scan or MRI should be considered for further evaluation. Redemonstration of compression fractures at T12, L1 and L2. Multilevel lumbar spondylosis with degenerative changes and loss of disc space height most severe at L4-L5.
== END 2023-10-29 10:03 | disposition home or self-care (01) ==
LOC: HO.HOSX 10:02
PROVIDERS: PCP Internal Medicine; Visit Provider Physician Assistant
DX: Z47.89 Encounter for other orthopedic aftercare (principal); Z98.890 Other specified postprocedural states
CPT/HCPCS: 72070; 72110; 99212

== ENCOUNTER 2023-11-16 10:33 | Outpatient (AMB) | payer MEDICARE, SELFPAY ==
--- NOTE | 2023-11-16 10:35 | A.OFFVIS_ITS ---
Vital Signs 11/16/23 10:36 Height 5 ft 8 in Weight 163 lb BMI 24.8 BP 175/85 H Blood Pressure Location Lt brachial Position Sitting Respiration 14 Pulse 109 H Pulse Source Pulse Oximeter Pulse Oximetry (%) 97 Oxygen Delivery Method Room Air Intake Visit Reasons: low back pain s/p laminectomy Allergies Penicillins Adverse Reaction (Verified 11/16/23 10:37) swollen Medication List - Last Reconciled 11/16/23 by Kaylin Joseph LPN amlodipine 10 mg PO DAILY atorvastatin 40 mg PO DAILY furosemide 20 mg PO DAILY methocarbamol 750 mg PO BID omeprazole 20 mg PO DAILY oxycodone 5 mg PO BID PRN sodium chloride 1,000 mg PO TID tamsulosin 0.4 mg PO DAILY triamcinolone acetonide 0.025% 1 appl topical BID HPI HPI low back pain s/p laminectomy: Details: 73-year-old male who presents today to the office for an evaluation of low back pain status post laminectomy. He reports low back pain that has been present since October 2022. He reports that he awoke the morning of October 09 with significant middle and low back pain and called an ambulance to bring him to the emergency department here at [facility]. He had a CT scan of the abdomen and pelvis completed, which was generally unremarkable at the time. 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 He reports being on antibiotics for an extended period of time, and Infectious Disease at [facility] told him that in March he was cleared from his osteomyelitis infection. He described his low-back pain near the waistline and ran both his hands across the lateral sides of his low back. He reports no radiation of symptoms. He reports no numbness/tingling/weakness. He does report an increase in pain in his low back with spine extension and feels that leaning over and holding on to something helps alleviate his symptoms. He has significant difficulty ambulating for extended periods of time and reports that he has stopped going to grocery stores and retail stores altogether. He needs to sit down and rest after walking for prolonged periods of time in order to continue. The patient underwent L4-5 laminotomy, partial facetectomy, and foraminotomy. He still had some pain in the low back. He was managing his pain with OTC medication and occasional oxycodone. He is completing all of his ADLs around the house. The patient is able to ambulate well and rises from a seated position without difficulty. He was able to go on his vacation to [place] and states he had no issues with the plane ride. ? [facility] Medical History Dyspnea on exertion Osteoarthritis Erectile dysfunction Hypercholesteremia Diskitis Tubular adenoma SIAD (syndrome of inappropriate antidiuresis) Thoracic aortic aneurysm Constipation CAD (coronary artery disease) History of rib fracture Hard of hearing History of MRSA infection Back pain GERD (gastroesophageal reflux disease) Weakness Habitual snoring High cholesterol Hypertension Surgical History History of esophagogastroduodenoscopy (EGD) Hx of tonsillectomy History of total right knee replacement Hx of cataract extraction H/O colonoscopy Knee joint replacement status Social History Are you a primary career development manager to a significant other at home: No Do you presently have visiting nurse or other home services: No Alcohol intake: current Alcohol intake frequency: 3 or more drinks per day Alcohol type: beer Patient Tobacco Use Status: Former Tobacco user Current occupational status: 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 Alert and oriented. Mood and affect appropriate. Follows and participates in conversation appropriately. Respiratory effort is unlabored. Able to transition from sit to stand unassisted. Ambulates with bilaterally normal heel strike and toe off. He has a significant upper thoracic spine kyphosis. Lumbar?extension?reduces?slight?discomfort.? Lumbar extension is very limited and reproduces mild discomfort. Results Reviewed Results Reviewed: 10/29/23: ?XR THORACIC SPINE AND LUMBAR SPINE FINDINGS: Thoracic Spine: The bones are diffusely demineralized. Degenerative changes on very limited images of the cervical spine could be evaluated with dedicated cervical spine radiographs. Atherosclerotic calcifications in the aortic knob. Severe compression deformities with loss of the disc space at T9-T10 not appreciated on chest radiographs of October 09, 2022. Lumbar Spine: Bones are diffusely demineralized. Facet arthritis in the lower lumbar spine. Extensive atherosclerotic calcifications in the thoracoabdominal aorta. Degenerative changes in the bilateral sacroiliac joints. Decompression surgery at L4-L5 on 08/30/2023 fluoroscopic exam. Redemonstration of compression fractures at T12, L1 and L2. Multilevel lumbar spondylosis with degenerative changes and loss of disc space height most severe at L4-L5. Grade 1 retrolisthesis of L1 on L2 with flexion and extension. Minimal Grade 1 retrolisthesis of L3 on L4, and of L4 on L5 with extension. IMPRESSION: Severe compression deformities with loss of the disc space at T9-T10 not appreciated on chest radiographs of 10/09/2022. Dedicated CT scan or MRI should be considered for further evaluation. Redemonstration of compression fractures at T12, L1 and L2. Multilevel lumbar spondylosis with degenerative changes and loss of disc space height most severe at L4-L5. 10/29/23: XR THORACIC SPINE AND LUMBAR SPINE FINDINGS: Thoracic Spine: The bones are diffusely demineralized. Degenerative changes on very limited images of the cervical spine could be evaluated with dedicated cervical spine radiographs. Atherosclerotic calcifications in the aortic knob. Severe compression deformities with loss of the disc space at T9-T10 not appreciated on chest radiographs of October 09, 2022. Lumbar Spine: Bones are diffusely demineralized. Facet arthritis in the lower lumbar spine. Extensive atherosclerotic calcifications in the thoracoabdominal aorta. Degenerative changes in the bilateral sacroiliac joints. Decompression surgery at L4-L5 on 08/30/2023 fluoroscopic exam. Redemonstration of compression fractures at T12, L1 and L2. Multilevel lumbar spondylosis with degenerative changes and loss of disc space height most severe at L4-L5. Grade 1 retrolisthesis of L1 on L2 with flexion and extension. Minimal Grade 1 retrolisthesis of L3 on L4, and of L4 on L5 with extension. IMPRESSION: Severe compression deformities with loss of the disc space at T9-T10 not appreciated on chest radiographs of 10/09/2022. Dedicated CT scan or MRI should be considered for further evaluation. Redemonstration of compression fractures at T12, L1 and L2. Multilevel lumbar spondylosis with degenerative changes and loss of disc space height most severe at L4-L5. 07/10/23: MR LUMBAR SPINE WITHOUT CONTRAST FINDINGS: VERTEBRAL BODIES AND PARASPINAL STRUCTURES: Chronic mild superior endplate compression fracture deformities are again visible at the T12, L1, and L2 levels. No significant osseous retropulsion is evident. No new compression fracture deformities are otherwise seen. There is a mild rightward curvature of the lumbar spine. Extensive chronic fatty marrow endplate changes noted with severe disc space narrowing at the L3-L4 and L4-L5 levels. The paraspinal soft tissues are grossly unremarkable. There are fgna-tc-aywatqft degenerative changes of the sacroiliac joints. There is mild trabecular wall thickening of the imaged bladder. CONUS MEDULLARIS AND CAUDA EQUINA: The distal cord, conus tip, and cauda equina nerve roots are normal. SPINAL LEVELS: T11-T12: Mild osseous retropulsion with minimal impression upon the ventral thecal sac. No disc protrusion or significant central canal stenosis. Patent neural foramina. T12-L1: No significant disc pathology. No central canal stenosis or foraminal narrowing. Mild facet arthropathy. L1-L2: Broad-based posterior disc bulge with mild facet arthropathy and thickening of the ligamentum flavum results in onud-ps-cuvxtzqf central canal stenosis. A right subarticular zone disc protrusion impresses upon the right L2 nerve root. Bulging disc mildly encroaches upon the neural foramina. L2-L3: Yihu-ns-ljukcvnm loss of disc height with chronic degenerative endplate changes. Diffuse disc bulge and hypertrophic facet arthropathy result in tast-gq-hesdcoej central canal stenosis. Mild left and moderate right foraminal narrowing with bulging disc contacting the exiting right L2 nerve root. L3-L4: Severe disc space narrowing and mild retrosubluxation with a diffuse disc bulge and facet arthropathy. Very small central disc protrusion as well. Findings result in moderate central canal stenosis. Moderate to severe bilateral foraminal narrowing with osseous spurring and bulging disc mildly distorting the exiting L3 nerve roots. L4-L5: Mild posterior subluxation and diffuse disc bulge with hypertrophic facet degeneration and infolding of the ligamentum flavum results in severe central canal stenosis and thecal sac compression with mass effect upon both L5 nerve roots in the subarticular zones. Severe left foraminal narrowing with bulging disc and facet spurring impressing upon the exiting left L4 nerve root. Moderate right foraminal narrowing. L5-S1: Very small central disc protrusion. Olpb-nm-pvtfefbn facet arthropathy without central canal stenosis. Bulging disc and facet spurring mild to moderately distort the exiting right L5 nerve root with moderate foraminal encroachment. IMPRESSION: 1. Extensive multilevel degenerative disc disease and facet arthropathy with a mild rightward lumbar spinal curvature. Stable chronic mild superior endplate compression fracture deformities at the T12, L1, and L2 levels. No new compression fracture deformities. 2. Angr-vl-fztefejv central canal stenosis at the L1-L2 level with a right subarticular zone disc protrusion impressing upon the right L2 nerve root. 3. Rjam-jb-nhrmaytu central canal stenosis at the L2-L3 level with moderate right foraminal narrowing and bulging disc contacting the right L2 nerve root. 4. Severe degenerative disc disease at the L3-L4 level with moderate central canal stenosis and moderate to severe foraminal narrowing with mild distortion of both L3 nerve roots. 5. Posterior subluxation and disc bulge with facet arthropathy at L4-L5 resulting in severe central canal stenosis and thecal sac compression. Mass effect upon both L5 nerve roots in the subarticular zones. Severe left foraminal narrowing with mass effect upon the left L4 nerve root. 6. Bulging disc and facet spurring mild to moderately distort the exiting right L5 nerve root at the L5-S1 level with moderate right foraminal encroachment. Assessment & Plan Assessment & Plan (1) Intractable low back pain: Code(s): M54.59 - Other low back pain Category: Medical Plan 73-year-old male with multiple pain generators including lumbar spondylosis, multifidus atrophy, vertebral endplate changes, disc degeneration, lumbar spinal and foraminal stenosis. The patient presenting with axial low back pain that has not responded to conservative measures as well as surgical intervention to decompress with lumbar spinal stenosis. The two main differentials of axial low back pain are facet arthritis and vertebral endplate degeneration. Given significant multifidus atrophy and deconditioning, I think he would benefit from a trial of peripheral nerve stimulation of the lumbar medial branches for intractable back pain not responsive to other measures. We will schedule him for left L3 medial branch temporary nerve stimulator placement followed by the right side two weeks later. Discussed the risks and benefits of the procedure with the patient in detail. All questions were answered. The patient is on board with the plan. Justification for interventional therapy: ? Patient with average pain > 6/10 ? Patient has exhausted conservative therapy ? Patient unable to tolerate physical therapy due to pain. . Patient has a good understanding of their pain condition and has appropriate mental and social support Scribed for Dr. Rao by Quirino Nieves, biomedical engineering aide, on 11/16/2023. I, Dr. Rao, have personally reviewed and agree with the information entered by the scribe. Coding Level of Care Code New Pt Level 4 (37696) Diagnoses Intractable low back pain M54.59
[2023-11-16 10:36] VITALS: BP 175/85; PULSE 109; RESP 14; O2SAT 97; BMI 24.8
== END 2023-11-16 11:09 | disposition home or self-care (01) ==
PROVIDERS: PCP Internal Medicine; Visit Provider Internal Medicine
DX: M54.59 Other low back pain (principal)
CPT/HCPCS: 99204

== ENCOUNTER → 2023-11-16 10:33 | Outpatient (BNVA) | payer MEDICARE, SELFPAY | PROVIDERS: PCP Internal Medicine; Visit Provider Internal Medicine | DX: M54.59 Other low back pain (principal) | CPT/HCPCS: 99202 ==

== ENCOUNTER 2023-12-28 07:22 | Outpatient (REF) | payer MEDICARE, SELFPAY ==
--- NOTE | ~2023-12-28 | MR_ITS ---
EXAMINATION: MR THORACIC SPINE WITHOUT CONTRAST CLINICAL INFORMATION: Low back pain, evaluate thoracic compression fractures COMPARISON: Thoracic radiographs on 10/29/2023 TECHNIQUE: MRI of the thoracic spine was obtained using routine sequences without contrast. FINDINGS: Mild dextrocurvature at the thoracolumbar junction. Focal kyphosis at T9-10. Subacute to chronic compression fractures of T12, L1, and L2. There is approximately 40% vertebral body height loss of T12 and less than 30% vertebral body height loss of L1 and L2. Chronic compression fracture of T9 and T10 with near complete ankylosis, unchanged. No new compression fractures seen. The remaining vertebral body heights are preserved. Multilevel disc desiccation without significant disc height loss. Multilevel endplate osteophytosis. The visualized spinal cord is normal in caliber. No abnormal cord signal. There is no significant disc herniation or spinal canal stenosis. Moderate neural foraminal narrowing at T9-10 bilaterally. No other sites of significant neural foraminal narrowing. MR/MR thoracic spine wo con IMPRESSION: -Subacute to chronic compression fractures of T12, L1, and L2. Chronic compression fractures of T9 and T10 with near complete ankylosis. No new compression fracture. -Multilevel degenerative changes without significant spinal canal stenosis. Moderate neural foraminal narrowing at T9-10 bilaterally.
== END 2023-12-28 07:23 | disposition home or self-care (01) ==
LOC: HO.MRI 07:22
PROVIDERS: PCP Internal Medicine; Visit Provider Physician Assistant
DX: M54.50 Low back pain, unspecified (principal)
CPT/HCPCS: 72146

== ENCOUNTER 2024-01-01 10:52 | Outpatient (REF) | payer OTHER, MEDICARE, SELFPAY ==
--- NOTE | ~2024-01-01 | MR_ITS ---
EXAMINATION: MR BRAIN WITHOUT AND WITH CONTRAST CLINICAL INFORMATION: Right-sided sensorineural hearing loss COMPARISON: CT head 05/28/2023 TECHNIQUE: Multiplanar, multisequence imaging was obtained without and with intravenous contrast. Intravenous contrast: 8 mL Gadavist. FINDINGS: The VII and VIII cranial nerve complexes are normal in course and caliber. No signal abnormality is visualized within the inner ear structures on the precontrast axial T1-weighted sequence. Fluid signal is preserved within the cochlea, semicircular canals, and vestibule on the high-resolution axial FIESTA sequence. There is no abnormal labyrinthine or intracanalicular enhancement on postcontrast imaging. No cerebellopontine angle lesion. No acute infarct. No acute intracranial hemorrhage or extra-axial fluid collection. Mild to moderate global cerebral volume loss. Patchy T2 hyperintense foci in the subcortical and periventricular white matter and right thalamus, nonspecific but presumably moderate chronic microangiopathy. Chronic lacunar infarct in the right centrum semiovale and clustered prominent perivascular spaces within the right frontal deep white matter. No abnormal intraparenchymal or leptomeningeal enhancement. No mass effect or herniation pattern. Normal appearance of the midline structures. Normal intracranial arterial and dural venous sinus flow voids. Lens replacements. A few scattered small retention cysts in the maxillary sinuses and a left ethmoid air cell, some of which are proteinaceous. The craniocervical junction is intact. Normal marrow signal. MR/MR head/brain wo/w con IMPRESSION: 1. No retrocochlear pathology or acute intracranial abnormality. 2. Mild to moderate global cerebral volume loss and nonspecific white matter disease, presumably moderate chronic microangiopathy. Chronic lacunar infarct in the right centrum semiovale.
[2024-01-01] MEDS: gadobutroL 10 ML VIAL IVPUSH (12:45)
== END 2024-01-01 10:53 | disposition home or self-care (01) ==
LOC: HO.MRI 10:52
PROVIDERS: PCP Internal Medicine; Visit Provider Counselor Professional
DX: H90.3 Sensorineural hearing loss, bilateral (principal)
CPT/HCPCS: 70553; A9585

== ENCOUNTER 2024-03-05 11:46 | Outpatient (AMB) | payer MEDICARE, SELFPAY ==
[2024-03-05 11:53] VITALS: BP 124/79; PULSE 108; RESP 15; O2SAT 96; BMI 24.9
--- NOTE | 2024-03-05 11:53 | A.OFFVIS_ITS ---
Vital Signs 03/05/24 11:53 Height 5 ft 8 in Weight 164 lb BMI 24.9 BP 124/79 Blood Pressure Location Lt brachial Position Sitting Respiration 15 Pulse 108 H Pulse Source Pulse Oximeter Pulse Oximetry (%) 96 Oxygen Delivery Method Room Air Intake Visit Reasons: FOLLOW UP FOR BACK PAIN Allergies Penicillins Adverse Reaction (Verified 03/05/24 11:54) swollen Medication List - Last Reconciled 03/05/24 by Kaylin Joseph LPN amlodipine 10 mg PO DAILY atorvastatin 40 mg PO DAILY furosemide 20 mg PO DAILY omeprazole 20 mg PO DAILY oxycodone 5 mg PO BID PRN sodium chloride 1,000 mg PO TID tamsulosin 0.4 mg PO DAILY triamcinolone acetonide 0.025% 1 appl topical BID HPI HPI FOLLOW UP FOR BACK PAIN: Details: 73-year-old male who presents today to the office for a follow-up of low back pain.The patient presenting with axial low back pain that has not responded to conservative measures as well as surgical intervention to decompress with lumbar spinal stenosis. Patient had an MRI done recently which showed compression frac tures in the spine and he had surgery of the spine done. [facility] Medical History Dyspnea on exertion Osteoarthritis Erectile dysfunction Hypercholesteremia Diskitis Tubular adenoma SIAD (syndrome of inappropriate antidiuresis) Thoracic aortic aneurysm Constipation CAD (coronary artery disease) History of rib fracture Hard of hearing History of MRSA infection Back pain GERD (gastroesophageal reflux disease) Weakness Habitual snoring High cholesterol Hypertension Surgical History History of esophagogastroduodenoscopy (EGD) Hx of tonsillectomy History of total right knee replacement Hx of cataract extraction H/O colonoscopy Knee joint replacement status Social History Are you a primary acute care certified nursing assistant to a significant other at home: No Do you presently have visiting nurse or other home services: No Alcohol intake: current Alcohol intake frequency: 3 or more drinks per day Alcohol type: beer Patient Tobacco Use Status: Former Tobacco user Current occupational status: 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 Focal kyphosis at T9-10. Subacute to chronic compression fractures of T12, L1, and L2. There is approximately 40% vertebral body height loss of T12 and less than 30% vertebral body height loss of L1 and L2. Chronic compression fracture of T9 and T10 with near complete ankylosis, unchanged. No new compression fractures seen. The remaining vertebral body heights are preserved. Multilevel disc desiccation without significant disc height loss. Multilevel endplate osteophytosis. The visualized spinal cord is normal in caliber. No abnormal cord signal. There is no significant disc herniation or spinal canal stenosis. Moderate neural foraminal narrowing at T9-10 bilaterally. No other sites of significant neural foraminal narrowing. IMPRESSION: -Subacute to chronic compression fractures of T12, L1, and L2. Chronic compression fractures of T9 and T10 with near complete ankylosis. No new compression fracture. -Multilevel degenerative changes without significant spinal canal stenosis. Moderate neural foraminal narrowing at T9-10 bilaterally. Assessment & Plan Assessment & Plan (1) Intractable back pain: Code(s): M54.9 - Dorsalgia, unspecified Category: Medical (2) Lumbar spondylosis: Code(s): M47.816 - Spondylosis without myelopathy or radiculopathy, lumbar region Category: Medical (3) Mononeuropathy: Code(s): G58.9 - Mononeuropathy, unspecified Category: Medical Plan 73-year-old male with multiple pain generators including lumbar spondylosis, multifidus atrophy, vertebral endplate changes, disc degeneration, lumbar spinal and foraminal stenosis. The patient presenting with axial low back pain that has not responded to conservative measures as well as surgical intervention to decompress with lumbar spinal stenosis. The two main differentials of axial low back pain are facet arthritis and vertebral endplate degeneration. Given significant multifidus atrophy and deconditioning, I think he would benefit from a trial of peripheral nerve stimulation of the lumbar medial branches for intractable back pain not responsive to other measures. We will schedule him for left L3 medial branch temporary nerve stimulator placement followed by the right side two weeks later. Patient is now now status post spine surgery for decompression at L4-5, which also failed to relieve his symptoms. Coding Level of Care Code Est Pt Level 3 (43882) Diagnoses Intractable back pain M54.9 Lumbar spondylosis M47.816 Mononeuropathy G58.9
== END 2024-03-05 12:19 | disposition home or self-care (01) ==
PROVIDERS: PCP Internal Medicine; Visit Provider Internal Medicine
DX: M54.9 Dorsalgia, unspecified (principal); M47.816 Spondylosis without myelopathy or radiculopathy, lumbar region; G58.9 Mononeuropathy, unspecified
CPT/HCPCS: 99213

== ENCOUNTER → 2024-03-05 11:46 | Outpatient (BNVA) | payer MEDICARE, OTHER, SELFPAY | PROVIDERS: PCP Internal Medicine; Visit Provider Internal Medicine | DX: M47.816 Spondylosis without myelopathy or radiculopathy, lumbar region (principal); G58.9 Mononeuropathy, unspecified | CPT/HCPCS: 99212 ==

== ENCOUNTER 2024-03-27 06:03 | Outpatient (REF) | payer MEDICARE, OTHER, SELFPAY | END 2024-03-27 06:04 | disposition home or self-care (01) | LOC: CF 06:03 | PROVIDERS: Visit Provider Internal Medicine | DX: M47.816 Spondylosis without myelopathy or radiculopathy, lumbar region (principal); M54.59 Other low back pain | CPT/HCPCS: 64555; C1778; J2003 ==

== ENCOUNTER 2024-03-27 09:44 | Outpatient (AMB) | payer MEDICARE, SELFPAY ==
--- OUTSIDE RECORDS SUMMARY | 2024-03-27 09:46 | XMS_ITS | Continuity of Care Document ---
Author Organization [facility] Address [address] [place] [address] [address], [address] [place] [address]- Care Team Providers Care Medical Insurance Claims Specialist Name Role Phone Aman AUGUSTE, Shabana Dorantes Primary Care Physician Encounter [facility] Date(s): 04/16/23 - 06/09/[address], [address] [place] [address]- Attending Physician: Stephy Byers MD Referring Physician: Mu PARRISH, Niecy Wise Allergies, Adverse Reactions, Alerts Substance Reaction Severity Status penicillin 1 Active lisinopril Nausea Active 1Rash Immunizations Given and Recorded Vaccine Date Status Refusal Reason SARS-CoV-2(COVID-19)mRNA-LNP vac([id number]) 03/27/23 Recorded zoster vaccine, inactivated 03/23/23 Recorded influenza virus vaccine, inactivated 03/15/23 Robby rded SARS-CoV-2 (COVID-19) mRNA BNT-162b2 vac 03/11/21 Recorded [...] tablet = 40 mg, By Mouth, Daily, # 90 tablet, 3 Refills, Maintenance, 06/01/23 11:13:00 EST, Tablet, [facility], Partial fill upon patient request if the prescription is for a schedule II opioid drug., 175, cm, 06/01/23 10:47:00 EST, Heig... Start Date: 06/01/23 Stop Date: 05/26/24 Status: Ordered diazepam 5 mg oral tablet 5 mg, 1, tablet, By Mouth, Once, one hour before MRI, # 1 tablet, Refills 0, Tot. Refills 0, Soft Stop, 06/06/23 18:22:00 EST, Route to Pharmacy Electronically, [facility] # 302, Partial fill upon patient request if the prescription is for a sche... Start Date: 06/06/23 Status: Ordered diazepam 5 mg oral tablet 5 mg, 1, tablet, By Mouth, Once, one hour before MRI, # 1 tablet, Refills 0, Tot. Refills 0, Soft Stop, 03/07/23 20:14:00 EDT, Route to Pharmacy Electronically, [facility] # 302, Partial fill upon patient request if the prescription is for a sche... Start Date: 03/07/23 Status: Ordered Flomax 0.4 mg oral capsule 0.4 mg, By Mouth, Daily, 1 capsule daily 30 minutes after the same meal for management of urinary retention. follow up with pcp and call [facility] urology to schedule outpatient appt for furthermgmt and refills., # 30 each, Refills 11, Tot. Re... Start Date: 02/28/23 Stop Date: 02/23/24 Status: Ordered ipratropium 500 mcg/2.5 mL inhalation solution 500 mcg, 2.5, mL, Inhalation, 4 times a day, PRN, # 120 each, Refills 11, Tot. Refills 11, Maintenance, 04/18/23 12:19:00 EST, Solution, Route to Pharmacy Electronically, [id number], [facility], 175, cm, 04/13/23 1... Start Date: 04/18/23 Status: Ordered multivitamin with minerals Multiple Vitamins [...] Maintenance, 10/20/22 12:58:00 EDT, ECCapsule, [facility], 178, cm, 10/20/22 6:36:00 EDT, Height Start Date: 10/20/22 Status: Ordered oxyCODONE 10 mg oral tablet 1 tablet = 10 mg, By Mouth, 3 times a day, PRN Pain , Severe, for 28 days, CSA 28 Day; For Refill 05/28/2023, # 84 tablet, 0 Refills, Acute 06/22/23 9:52:00 EST, 05/25/23 9:52:00 EST, [facility], Partial fill upon patient [...] Care Nurse Name: Mookie Jacobson MD Position: [facility] Renal MD Member Role: Lifetime Consulting Physician Address: Address: [address] [place] [address] [address] [place] [address]- [place] Name: Nahed Crain RN Position: [facility] SN RN Member Role: Primary Care Nurse Name: Thalia Murcia RN Position: S RN Member Role: Primary Care Nurse Name: Shabana Newton MD Position: [facility] Physician - Primary Care Member Role: PCP Address: Address: [address] [place] [address]- [place] Name: Giorgi Schuster RN Position: S RN Member Role: Primary Care Nurse Name: Jayashree Campo RN Position: [facility] RN Supv Member Role: Primary Care Nurse Name: Daniel Dumont DO Position: [facility] Renal MD Member Role: Lifetime Consulting Physician Address: Address: [address] [place], [place] [address] [place] [address]- [place] Name: Tamra Perez RN Position: S RN Member Role: Primary Care Nurse Name: Haley Tilley RN Position: S RN Member Role: Primary Care Nurse Name: Ruchi Irwin RN Position: S RN Member Role: Primary Care Nurse Name: Bobby Quintanilla RN Position: S RN Member Role: Primary Care Nurse Name: Kg Blake MD Position: [facility] Renal MD Member Role: Lifetime Consulting Physician Address: Address: [address] [place], [place] [address] [address] [facility] [place] [address]- Name: Tena Holden RN Position: S RN Member Role: Primary Care Nurse Name: Shon Fleming MD Position: [facility] Renal MD Member Role: Lifetime Consulting Physician Address: Address: [address] [place] [address] [facility] [place] [address]- Name: Katiuska Benito LPN Position: S RN Member Role: Primary Care Nurse Care Team Related Persons Name: STAR MIMS Address: home [address] [place] [address]
--- OUTSIDE RECORDS SUMMARY | 2024-03-27 09:46 | XMS_ITS | Continuity of Care Document ---
Author Organization [facility] Address [address] [place] [address]- Care Team Providers Care Soft Top Installer Name Role Phone Shabana Newton MD Primary Care Physician [phone] Encounter [facility] Date(s): 04/13/23 - 07/29/23 [facility] [address] [place] [address] Attending Physician: Irving Wright MD Admitting Physician: Irving Wright MD Referring Physician: Shabana Newton MD Allergies, Adverse Reactions, Alerts Substance Reaction Severity Status penicillin 1 Active lisinopril Nausea Active 1Rash Immunizations Given and Recorded Vaccine Date Status Refusal Reason SARS-CoV-2(COVID-19)mRNA-LNP vac([id number]) 03/27/23 Recorded zoster vaccine, inactivated 03/23/23 Recorded [...] 3 Refills, Maintenance, 06/01/23 11:13:00 EST, Tablet, [facility], Partial fill upon [...] 06/06/23 18:22:00 EST, Route to Pharmacy Electronically, [facility], Partial fill upon patient request if the prescription is for a sche... Start Date: 06/06/23 Status: Ordered diazepam 5 mg oral tablet 5 mg, 1, tablet, By Mouth, Once, one hour before MRI, # 1 tablet, Refills 0, Tot. Refills 0, Soft Stop, 03/07/23 20:14:00 EDT, Route to Pharmacy Electronically, [facility], Partial fill upon patient request if the prescription is for a sche... Start Date: 03/07/23 Status: Ordered Flomax 0.4 mg oral capsule 0.4 mg, By Mouth, Daily, 1 capsule daily 30 minutes after the same meal for management of urinary retention. follow up with pcp and call [facility] urology to schedule outpatient appt for furthermgmt and refills., # 30 each, Refills 11, Tot. Re... Start Date: 02/28/23 Stop Date: 02/23/24 Status: Ordered ipratropium 500 mcg/2.5 mL inhalation solution 500 mcg, 2.5, mL, Inhalation, 4 times a day, PRN, # 120 each, Refills 11, Tot. Refills 11, Maintenance, 04/18/23 12:19:00 EST, Solution, Route to Pharmacy Electronically, [id number], [facility], 175, cm, 04/13/23 [...] 3 Refills, Maintenance, 10/20/22 12:58:00 EDT, ECCapsule, [facility], 178, cm, 10/20/22 6:36:00 EDT, Height Start Date: 10/20/22 Status: Ordered oxyCODONE 10 mg oral tablet 1 tablet = 10 mg, By Mouth, 3 times a day, for 28 days, CSA 28 DAY; for Refill 07/13/2023, # 84 tablet, 0 Refills, Acute 08/08/23 16:59:00 EST, 07/11/23 16:59:00 EST, [facility], Partial fill upon patient request if the prescription is for... Start Date: 07/11/23 Stop Date: 08/08/23 Status: Ordered Vitamin B12 1000 mcg oral [...] Team Personnel Name: Fadumo Aguilera RN Position: [facility] RN Member Role: Primary Care Nurse Name: Kavon AUGUSTE, Mookie Alvarado Position: [facility] Renal MD Member Role: Lifetime Consulting Physician Address: Address: [address] [place] [address] [address] [facility] [address]- [place] Name: Nahed Crain RN Position: [facility] SN RN Member Role: Primary Care Nurse Name: Thalia Murcia RN Position: S RN Member Role: Primary Care Nurse Name: Shabana Newton MD Position: [facility] Physician - Primary Care Member Role: PCP Address: Address: [address] [place] [address]- Name: Jayashree Campo RN Position: [facility] RN Supv Member Role: Primary Care Nurse Name: Daniel Dumont DO Position: [facility] Renal MD Member Role: Lifetime Consulting Physician Address: Address: [address] [place] [address] [address] [facility] [place] [address]- [place] Name: Tamra Perez RN Position: [facility] RN Member Role: Primary Care Nurse Name: Haley Tilley RN Position: S RN Member Role: Primary Care Nurse Name: Ruchi Irwin RN Position: S RN Member Role: Primary Care Nurse Name: Kg Blake MD Position: [facility] Renal MD Member Role: Lifetime Consulting Physician Address: Address: [address] [place] [address] [address] [facility] [place] [address]- [place] Name: Shon Fleming MD Position: [facility] Renal MD Member Role: Lifetime Consulting Physician Address: Address: [address] [place] [address] [facility] [place] [address]- Name: Katiuska Benito LPN Position: [facility] RN Member Role: Primary Care Nurse Care Team Related Persons Name: STAR MIMS Address: [address] [address]
--- OUTSIDE RECORDS SUMMARY | 2024-03-27 09:47 | XMS_ITS | Continuity of Care Document ---
Author Organization [facility] Address [address] [place] [address]- Care Team Providers Care Egg Breaking Machine Operator Name Role Phone Shabana Newton MD Primary Care Physician [phone] Encounter [facility] Date(s): 04/30/23 - 05/30/23 [facility] [address] [place] [id number] Allergies, Adverse Reactions, [...] 03/07/23 20:14:00 EDT, Route to Pharmacy Electronically, [facility] # 302, Partial fill upon patient [...] follow up with pcp and call [facility]rology to schedule outpatient appt for furthermgmt and refills., # 30 each, Refills 11, Tot. Re... Start Date: 02/28/23 Stop Date: 02/23/24 Status: Ordered gabapentin 300 mg oral capsule See Instructions, 1 capsule By Mouth morning and noon and 2 capsules at bedtime, # 120 each, Refills 5, Tot. Refills 5, Maintenance, 02/09/23 8:50:00 EDT, Instructions Replace Required Details, Routeto Pharmacy Electronically, [facility],... Start Date: 02/09/23 Status: Ordered ipratropium 500 mcg/2.5 mL inhalation solution 500 mcg, 2.5, mL, Inhalation, 4 times a day, PRN, # 120 each, Refills 11, Tot. Refills 11, Maintenance, 04/18/23 12:19:00 EST, Solution, Route to Pharmacy Electronically, [id number], [facility] # 302, 175, cm, 04/13/23 1... [...] 3 Refills, Maintenance, 10/20/22 12:58:00 EDT, ECCapsule, [facility], 178, cm, 10/20/22 6:36:00 EDT, Height Start Date: 10/20/22 Status: Ordered oxyCODONE 10 mg oral tablet 1 tablet = 10 mg, By Mouth, 3 times a day, PRN Pain , Severe, for 28 days, CSA 28 Day; For Refill 05/28/2023, # 84 tablet, 0 Refills, Acute 06/22/23 9:52:00 EST, 05/25/23 9:52:00 EST, [facility], Partial fill upon patient request [...] Team Personnel Name: Fadumo Aguilera RN Position: [facility] RN Member Role: Primary Care Nurse Name: Mookie Jacobson MD Position: [facility] Renal MD Member Role: Lifetime Consulting Physician Address: Address: [address] [place] [address] [address] [facility] [place] [address]- [place] Name: Nahed Crain RN Position: [facility] SN RN Member Role: Primary Care Nurse Name: Thalia Murcia RN Position: [facility] RN Member Role: Primary Care Nurse Name: Shabana Newton MD Position: [facility] Physician - Primary Care Member Role: PCP Address: Address: [address] [place] [address] [place] [address]- Name: Giorgi Schuster RN Position: [facility] RN Member Role: Primary Care Nurse Name: Jayashree Campo RN Position: [facility] RN Supv Member Role: Primary Care Nurse Name: Daniel Dumont DO Position: S Renal MD Member Role: Lifetime Consulting Physician Address: Address: [address] [place] [address] [address] [facility] [place] [address]- Name: Tamra Perez RN Position: S RN Member Role: Primary Care Nurse Name: Haley Tilley RN Position: S RN Member Role: Primary Care Nurse Name: Ruchi Irwin RN Position: S RN Member Role: Primary Care Nurse Name: Bobby Quintanilla RN Position: S RN Member Role: Primary Care Nurse Name: Kg Blake MD Position: [facility] Renal MD Member Role: Lifetime Consulting Physician Address: Address: [address] [place] [address] [address] [facility] [place] [address]- Name: Tena Holden RN Position: S RN Member Role: Primary Care Nurse Name: Shon Fleming MD Position: [facility] Renal MD Member Role: Lifetime Consulting Physician Address: Address: [address] [place] [address] [facility] [place] [address]- Name: Katiuska Benito LPN Position: S RN Member Role: Primary Care Nurse Care Team Related Persons Name: STAR MIMS Address: [address] [place] [address]
--- OUTSIDE RECORDS SUMMARY | 2024-03-27 09:47 | XMS_ITS | Continuity of Care Document ---
Author Organization [facility] Address [address] [address]- Care Team Providers Care Build Master Name Role Phone Shabana Newton MD Primary Care Physician [phone] Encounter [facility] Date(s): 06/29/23 - 07/29/23 [facility] [address] [facility] [address] [place] [id number] Attending Physician: Admtr, Chetan Admitting Physician: Admtr, Ar8 Referring Physician: Admtr, Ar8 Allergies, Adverse Reactions, Alerts Substance Reaction Severity Status penicillin 1 Active lisinopril Nausea Active 1Rash Immunizations Given and Recorded Vaccine Date Status Refusal Reason SARS-CoV-2(COVID-19)mRNA-LNP vac([id number]) 03/27/23 Recorded zoster vaccine, inactivated 03/23/23 Recorded [...] 3 Refills, Maintenance, 06/01/23 11:13:00 EST, Tablet, [facility] # 302, Partial fill upon [...] 06/06/23 18:22:00 EST, Route to Pharmacy Electronically, [facility] # 302, Partial fill upon patient request if the prescription is for a sche... Start Date: 06/06/23 Status: Ordered diazepam 5 mg oral tablet 5 mg, 1, tablet, By Mouth, Once, one hour before MRI, # 1 tablet, Refills 0, Tot. Refills 0, Soft Stop, 03/07/23 20:14:00 EDT, Route to Pharmacy Electronically, [facility] # 302, Partial fill upon patient request if the prescription is for a sche... Start Date: 03/07/23 Status: Ordered Flomax 0.4 mg oral capsule 0.4 mg, By Mouth, Daily, 1 capsule daily 30 minutes after the same meal for management of urinary retention. follow up with pcp and call [facility] to schedule outpatient appt for furthermgmt and refills., # 30 each, Refills 11, Tot. Re... Start Date: 02/28/23 Stop Date: 02/23/24 Status: Ordered ipratropium 500 mcg/2.5 mL inhalation solution 500 mcg, 2.5, mL, Inhalation, 4 times a day, PRN, # 120 each, Refills 11, Tot. Refills 11, Maintenance, 11/08/23 12:19:00 EST, Solution, Route to Pharmacy Electronically, [id number], [facility] # 302, 175, cm, 04/13/23 [...] 3 Refills, Maintenance, 10/20/22 12:58:00 EDT, ECCapsule, [facility] # 302, 178, cm, 10/20/22 6:36:00 EDT, Height Start Date: 10/20/22 Status: Ordered oxyCODONE 10 mg oral tablet 1 tablet = 10 mg, By Mouth, 3 times a day, for 28 days, CSA 28 DAY; for Refill 07/13/2023, # 84 tablet, 0 Refills, Acute 08/08/23 16:59:00 EST, 07/11/23 16:59:00 EST, [facility] # 302, Partial fill upon [...] Team Personnel Name: Fadumo Aguilera RN Position: [facility] RN Member Role: Primary Care Nurse Name: Mookie Jacobson MD Position: [facility] Renal MD Member Role: Lifetime Consulting Physician Address: Address: [address] [place] [address] [address] [facility] [place] [address]- [place] Name: Nahed Crain RN Position: [facility] SN RN Member Role: Primary Care Nurse Name: Thalia Murcia RN Position: [facility] RN Member Role: Primary Care Nurse Name: Shabana Newton MD Position: [facility] Physician - Primary Care Member Role: PCP Address: Address: [address] [place] [address]- Name: Jayashree Campo RN Position: [facility] RN Supv Member Role: Primary Care Nurse Name: Daniel Dumont DO Position: [facility] Renal MD Member Role: Lifetime Consulting Physician Address: Address: [address] [place] [address] [address] [facility] [place] [address]- [place] Name: Tamra Perez RN Position: [facility] RN Member Role: Primary Care Nurse Name: Haley Tilley RN Position: S RN Member Role: Primary Care Nurse Name: Ruchi Irwin RN Position: S RN Member Role: Primary Care Nurse Name: Kg Blake MD Position: [facility] Renal MD Member Role: Lifetime Consulting Physician Address: Address: [address] [facility] [address] [facility] [place] [address]- [place] Name: Shon Fleming MD Position: [facility] Renal MD Member Role: Lifetime Consulting Physician Address: Address: [address] [place] [address] [facility] [place] [address]- Name: Katiuska Benito LPN Position: [facility] RN Member Role: Primary Care Nurse Care Team Related Persons Name: STAR MIMS Address: [address] [place] [address]
[2024-03-27 09:57] VITALS: BP 163/87; PULSE 88; O2SAT 98
--- NOTE | 2024-03-27 09:57 | MHC.OFFVIS ---
Vital Signs 03/27/24 09:57 03/27/24 11:03 BP 163/87 H 160/91 H Blood Pressure Location Lt brachial Lt brachial Position Sitting Sitting Pulse 88 88 Pulse Source Pulse Oximeter Pulse Oximeter Pulse Oximetry (%) 98 97 Oxygen Delivery Method Room Air Room Air Intake Visit Reasons: Left L3 Sprint Allergies Penicillins Adverse Reaction (Verified 03/05/24 11:54) swollen HPI HPI Left L3 Sprint: Details: Patient presents for scheduled procedure. Denies any recent cough, cold, infection, fever or other significant changes in medical history since last office visit. [facility] Medical History Dyspnea on exertion Osteoarthritis Erectile dysfunction Hypercholesteremia Diskitis Tubular adenoma SIAD (syndrome of inappropriate antidiuresis) Thoracic aortic aneurysm Constipation CAD (coronary artery disease) History of rib fracture Hard of hearing History of MRSA infection Back pain GERD (gastroesophageal reflux disease) Weakness Habitual snoring High cholesterol Hypertension Surgical History History of esophagogastroduodenoscopy (EGD) Hx of tonsillectomy History of total right knee replacement Hx of cataract extraction H/O colonoscopy Knee joint replacement status Social History Are you a primary career services coordinator to a significant other at home: No Do you presently have visiting nurse or other home services: No Alcohol intake: current Alcohol intake frequency: 3 or more drinks per day Alcohol type: beer Patient Tobacco Use Status: Former Tobacco user Current occupational status: 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 After the risks, benefits and alternatives were discussed with the patient and informed consent was obtained, patient was placed in the prone position and padded to foster comfort. The skin overlying the lumbosacral spine was prepped and draped in sterile fashion. Fluoroscopy was used to identify the spinous process and lamina in the center of the patient?s region of pain. After identifying and marking the intended target along the course of the medial branch nerve, the skin around the planned entry point and the subcutaneous tissues were injected with lidocaine 1%. An introducer needle and stimulating probe were assembled, inserted and advanced along the intended course of the medial branch nerve as it traverses the lamina medial and inferior to the zygapophyseal joint, taking care to maintain the proper depth of insertion as the introducer is advanced under fluoroscopic guidance. The introducer needle was delivered to a location in proximity to the nerve. Multiple stimulation parameters were used to deliver stimulation to the target medial branch nerve in concert with stimulating at multiple positions around the nerve. Nerve target acquisition was confirmed noting generation of paresthesias in the paravertebral regions corresponding to the level being stimulated. Various electrical parameter combinations were tested, and the lead location was adjusted (physically relocated) until the patient indicated paresthesia/muscle tension overlapping the distribution of the patient?s typical region of pain. The stimulating probe was removed from the introducer and a percutaneous lead was guided through the needle and delivered to a location in similar proximity to the nerve. Final location was verified with electrical stimulation and documented with fluoroscopy. The introducer needle was removed, and the exposed end of the percutaneous lead was attached to an external stimulator unit. Various electrical parameter combinations were again tested until the patient indicated paresthesia or muscle tension overlapping the distribution of the patient?s typical region of pain. After confirming that lead impedance was in the normal range, the external unit was detached, the needle was removed, and the lead was anchored at the skin. The lead was threaded into the connector block and electrical continuity and desired patient response was confirmed. The connector block was attached to the external stimulator unit. The site was covered with a sterile occlusive dressing. The patient was observed for stability of vital signs and comfort. Sprint PNS Device: Sprint PNS Device [id number] Percutaneous Peripheral Neuroelectrode Procedure: 78364 - Percutaneous Peripheral Neuroelectrode Procedure code (CPT) selection complete Office Meds lidocaine HCl 10 mg/mL (1 %) injection solution Performing Provider: Dayami Dobbins APRN, ROB Performing Location: [facility] Administered by: Kaylin Joseph LPN on 03/27/24 10:30 Dose Route Admin Location Dispensed Lot Number Expiration Date [facility] Fingerprint Expert 5 mL subcut 5 mL Assessment & Plan Assessment & Plan (1) Lumbar spondylosis: Code(s): M47.816 - Spondylosis without myelopathy or radiculopathy, lumbar region Category: Medical (2) Intractable back pain: Code(s): M54.9 - Dorsalgia, unspecified Category: Medical Plan Patient is status post left L2 medial branch temporary nerve stimulator placement. Patient tolerated procedure well and was discharged home in stable condition with discharge instructions. All questions were answered. We will follow-up via telephone or in clinic to assess response to therapy. A follow-up appointment was made during today's visit. Orders: Orders FL guidance in treatment room Today M54.59 - Other low back pain AMB Sprint PNS Today M54.59 - Other low back pain Coding Level of Care Code Procedure Only Diagnoses Lumbar spondylosis M47.816 Intractable back pain M54.9 CPT Codes Sprint PNS - Sprint PNS Device: Sprint PNS Device ([id number]) Sprint PNS - SPRINT: 36507 - Percutaneous Peripheral Neuroelectrode ([id number]) Implantable Device Implantable Device Implantable Devices Qty Fingerprint Expert Implant Date Expiration Date Analgesic PENS system 1 [employer] 03/27/24 02/08/25
[2024-03-27 11:03] VITALS: BP 160/91; PULSE 88; O2SAT 97
== END 2024-03-27 11:32 | disposition home or self-care (01) ==
LOC: HO.PMCPRC 09:44
PROVIDERS: PCP Internal Medicine; Visit Provider Internal Medicine
DX: M47.816 Spondylosis without myelopathy or radiculopathy, lumbar region (principal); M54.9 Dorsalgia, unspecified
CPT/HCPCS: 64555

== ENCOUNTER 2024-04-02 09:51 | Outpatient (AMB) | payer MEDICARE, SELFPAY ==
--- NOTE | 2024-04-02 09:55 | MHC.OFFVIS ---
Vital Signs 04/02/24 09:57 Height 5 ft 8 in Weight 166 lb BMI 25.2 BP 139/83 Blood Pressure Location Lt brachial Position Sitting Respiration 14 Pulse 95 Pulse Source Pulse Oximeter Pulse Oximetry (%) 97 Oxygen Delivery Method Room Air Intake Visit Reasons: s/p Left L3 Sprint Allergies Penicillins Adverse Reaction (Verified 04/16/24 09:14) swollen Medication List - Last Reconciled 04/02/24 by Kaylin Joseph LPN amlodipine 10 mg PO DAILY atorvastatin 40 mg PO DAILY furosemide 20 mg PO DAILY omeprazole 20 mg PO DAILY oxycodone 5 mg PO BID PRN sodium chloride 1,000 mg PO TID tamsulosin 0.4 mg PO DAILY triamcinolone acetonide 0.025% 1 appl topical BID HPI HPI s/p Left L3 Sprint: Details: 74-year-old male who presents today to the office for status post left L3 sprint. The patient reports no significant relief following the procedure. He still reports pain in his lower back region. He endorses overstimulation of paresthesia sensation at device setting of 80%. Past procedures 03/27/24: Lumbar Medial Branch Nerve Stimulation Lead Placement, SPR (Sprint) System, Left L2 Medial Branch: No significant relief yet [facility] Medical History Dyspnea on exertion Osteoarthritis Erectile dysfunction Hypercholesteremia Diskitis Tubular adenoma SIAD (syndrome of inappropriate antidiuresis) Thoracic aortic aneurysm Constipation CAD (coronary artery disease) History of rib fracture Hard of hearing History of MRSA infection Back pain GERD (gastroesophageal reflux disease) Weakness Habitual snoring High cholesterol Hypertension Surgical History History of esophagogastroduodenoscopy (EGD) Hx of tonsillectomy History of total right knee replacement Hx of cataract extraction H/O colonoscopy Knee joint replacement status Social History Are you a primary childcare attendant to a significant other at home: No Do you presently have visiting nurse or other home services: No Alcohol intake: current Alcohol intake frequency: 3 or more drinks per day Alcohol type: beer Patient Tobacco Use Status: Former Tobacco user Current occupational status: 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 Alert and oriented. Mood and affect appropriate. Follows and participates in conversation appropriately. Respiratory effort is unlabored. Able to transition from sit to stand unassisted. Ambulates with bilaterally normal heel strike and toe off. Lead insertion site was clean, dry, and intact. The dressing was changed today in the office. Results Reviewed Results Reviewed: No imaging is available for review. Assessment & Plan Assessment & Plan (1) Intractable back pain: Code(s): M54.9 - Dorsalgia, unspecified Category: Medical (2) Lumbar spondylosis: Code(s): M47.816 - Spondylosis without myelopathy or radiculopathy, lumbar region Category: Medical (3) Mononeuropathy: Code(s): G58.9 - Mononeuropathy, unspecified Category: Medical Plan The device setting was weaned down to 70% today in the office. If his pain start to improves, he can increase the setting to 75% to 80% in a week. Follow up next week for device placement on the right side as scheduled. Scribed for Dr. Rao by Quirino Nieves, medical billing and coding instructor, on 04/02/2024. I, Dr. Rao, have personally reviewed and agree with the information entered by the scribe. Coding Level of Care Code Est Pt Level 3 (81281) Diagnoses Intractable back pain M54.9 Lumbar spondylosis M47.816 Mononeuropathy G58.9
[2024-04-02 09:57] VITALS: BP 139/83; PULSE 95; RESP 14; O2SAT 97; BMI 25.2
== END 2024-04-02 10:11 | disposition home or self-care (01) ==
PROVIDERS: PCP Internal Medicine; Visit Provider Internal Medicine
DX: M54.9 Dorsalgia, unspecified (principal); M47.816 Spondylosis without myelopathy or radiculopathy, lumbar region; G58.9 Mononeuropathy, unspecified
CPT/HCPCS: 99024

== ENCOUNTER → 2024-04-02 09:51 | Outpatient (BNVA) | payer MEDICARE, OTHER, SELFPAY | PROVIDERS: PCP Internal Medicine; Visit Provider Internal Medicine | DX: M54.9 Dorsalgia, unspecified (principal); M47.816 Spondylosis without myelopathy or radiculopathy, lumbar region; G58.9 Mononeuropathy, unspecified | CPT/HCPCS: 99212 ==

== ENCOUNTER 2024-04-10 06:08 | Outpatient (REF) | payer MEDICARE, SELFPAY | END 2024-04-10 06:09 | disposition home or self-care (01) | LOC: CF 06:08 | PROVIDERS: Visit Provider Internal Medicine | DX: M47.816 Spondylosis without myelopathy or radiculopathy, lumbar region (principal); M54.9 Dorsalgia, unspecified; G58.9 Mononeuropathy, unspecified | CPT/HCPCS: 64555; C1778; J2003 ==

== ENCOUNTER 2024-04-10 09:13 | Outpatient (AMB) | payer MEDICARE, SELFPAY ==
--- NOTE | 2024-04-10 09:18 | MHC.OFFVIS ---
Vital Signs 04/10/24 09:24 04/10/24 10:04 BP 146/81 H 162/83 H Blood Pressure Location Lt brachial Lt brachial Position Sitting Sitting Pulse 93 99 Pulse Source Pulse Oximeter Pulse Oximeter Pulse Oximetry (%) 98 97 Oxygen Delivery Method Room Air Room Air Intake Visit Reasons: Right L3 Sprint Allergies Penicillins Adverse Reaction (Verified 04/02/24 10:02) swollen HPI HPI Right L3 Sprint: Details: Patient presents for scheduled procedure. Denies any recent cough, cold, infection, fever or other significant changes in medical history since last office visit. [facility] Medical History Dyspnea on exertion Osteoarthritis Erectile dysfunction Hypercholesteremia Diskitis Tubular adenoma SIAD (syndrome of inappropriate antidiuresis) Thoracic aortic aneurysm Constipation CAD (coronary artery disease) History of rib fracture Hard of hearing History of MRSA infection Back pain GERD (gastroesophageal reflux disease) Weakness Habitual snoring High cholesterol Hypertension Surgical History History of esophagogastroduodenoscopy (EGD) Hx of tonsillectomy History of total right knee replacement Hx of cataract extraction H/O colonoscopy Knee joint replacement status Social History Are you a primary healthcare representative to a significant other at home: No Do you presently have visiting nurse or other home services: No Alcohol intake: current Alcohol intake frequency: 3 or more drinks per day Alcohol type: beer Patient Tobacco Use Status: Former Tobacco user Current occupational status: 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 After the risks, benefits and alternatives were discussed with the patient and informed consent was obtained, patient was placed in the prone position and padded to foster comfort. The previously placed lead on the left side was noted to be displaced on visual inspection and the displacement was confirmed with fluoroscopy. Decision was made to replace the left lead at the same time while placing the right lead. The left lead was removed completely with tip intact. The skin overlying the lumbosacral spine was prepped and draped in sterile fashion. Fluoroscopy was used to identify the spinous process and lamina in the center of the patient?s region of pain. After identifying and marking the intended target along the course of the medial branch nerve, the skin around the planned entry points and the subcutaneous tissues were injected with lidocaine 1%. Two introducer needles and stimulating probes were assembled, inserted and advanced along the intended course of the medial branch nerves under the laminae medial and inferior to the zygapophyseal joints on both sides, taking care to maintain the proper depth of insertion as the introducers were advanced under fluoroscopic guidance. The introducer needles were delivered in proximity to the nerves. Multiple stimulation parameters were used to deliver stimulation to the target medial branch nerves in concert with stimulating at multiple positions around the nerves. Nerve target acquisition was confirmed noting generation of paresthesias in the paravertebral regions corresponding to the levels being stimulated. Various electrical parameter combinations were tested, and the leads were adjusted (physically relocated) until the patient indicated paresthesia/muscle tension overlapping the distribution of the patient?s typical region of pain. The stimulating probes were removed from the introducers and percutaneous leads were guided through the needles and delivered in similar proximity to the nerves. Final location was verified with electrical stimulation and documented with fluoroscopy. The introducer needles were removed, and the exposed ends of the percutaneous leads were attached to an external stimulator unit. Various electrical parameter combinations were again tested until the patient indicated paresthesia or muscle tension overlapping the distribution of the patient?s typical region of pain. After confirming that lead impedance was in the normal range, the external unit was detached, the needle was removed, and the leads were anchored at the skin. The leads were threaded into the connector blocks and electrical continuity and desired patient response was confirmed. The connector blocks were attached to the external stimulator unit. The site was covered with a sterile occlusive dressing. The patient was observed for stability of vital signs and comfort. Sprint PNS Device: Sprint PNS Device [id number] Percutaneous Peripheral Neuroelectrode Procedure: 30209 - Percutaneous Peripheral Neuroelectrode Procedure code (CPT) selection complete Office Meds lidocaine HCl 10 mg/mL (1 %) injection solution Performing Provider: Dayami Dobbins APRN, ROB Performing Location: [facility] Administered by: Kaylin Joseph LPN on 04/10/24 09:47 Dose Route Admin Location Dispensed Lot Number Expiration Date [employer] Machine Operator 5 mL subcut 5 mL Assessment & Plan Assessment & Plan (1) Intractable back pain: Code(s): M54.9 - Dorsalgia, unspecified Category: Medical (2) Lumbar spondylosis: Code(s): M47.816 - Spondylosis without myelopathy or radiculopathy, lumbar region Category: Medical (3) Mononeuropathy: Code(s): G58.9 - Mononeuropathy, unspecified Category: Medical Plan Patient is status post temporary bilateral L3 medial branch nerve stimulator placement. Patient tolerated procedure well and was discharged home in stable condition with discharge instructions. All questions were answered. We will follow-up via telephone or in clinic to assess response to therapy. A follow-up appointment was made during today's visit. Orders: Orders FL guidance in treatment room Today M47.816 - Spondylosis without myelopathy or radiculopathy, lumbar region AMB Sprint PNS Today M47.816 - Spondylosis without myelopathy or radiculopathy, lumbar region Coding Level of Care Code Procedure Only Diagnoses Intractable back pain M54.9 Lumbar spondylosis M47.816 Mononeuropathy G58.9 CPT Codes Sprint PNS - Sprint PNS Device: Sprint PNS Device ([id number]) Sprint PNS - SPRINT: 48119 - Percutaneous Peripheral Neuroelectrode ([id number]) Implantable Device Implantable Device Implantable Devices Qty [employer] Machine Operator Implant Date Expiration Date Analgesic PENS system 1 [employer] 03/27/24 02/08/25 Analgesic PENS system 1 [employer] 04/10/24 02/15/26
[2024-04-10 09:24] VITALS: BP 146/81; PULSE 93; O2SAT 98
[2024-04-10 10:04] VITALS: BP 162/83; PULSE 99; O2SAT 97
== END 2024-04-10 10:15 | disposition home or self-care (01) ==
LOC: HO.PMCPRC 09:13
PROVIDERS: PCP Internal Medicine; Visit Provider Internal Medicine
DX: M47.816 Spondylosis without myelopathy or radiculopathy, lumbar region (principal); M54.9 Dorsalgia, unspecified; G58.9 Mononeuropathy, unspecified
CPT/HCPCS: 64555

== ENCOUNTER 2024-04-16 09:09 | Outpatient (AMB) | payer MEDICARE, SELFPAY ==
--- NOTE | 2024-04-16 09:11 | MHC.OFFVIS ---
Vital Signs 04/16/24 09:13 Height 5 ft 8 in Weight 168 lb BMI 25.5 BP 167/90 H Blood Pressure Location Lt brachial Position Sitting Respiration 14 Pulse 99 Pulse Source Pulse Oximeter Pulse Oximetry (%) 95 Oxygen Delivery Method Room Air Intake Visit Reasons: s/p Right L3 Sprint Allergies Penicillins Adverse Reaction (Verified 04/16/24 09:14) swollen Medication List - Last Reconciled 04/16/24 by Kaylin Joseph LPN amlodipine 10 mg PO DAILY atorvastatin 40 mg PO DAILY furosemide 20 mg PO DAILY omeprazole 20 mg PO DAILY oxycodone 5 mg PO BID PRN sodium chloride 1,000 mg PO TID tamsulosin 0.4 mg PO DAILY triamcinolone acetonide 0.025% 1 appl topical BID HPI HPI s/p Right L3 Sprint: Details: 74-year-old male who presents today to the office for status post left L3 sprint. The patient reports mild initial relief following the procedure. He has noticed some significant improvement in his pain compared to pre-procedure. He states that his device battery keeps falling and his device leads moves at night while sleeping.? He is going on [place] vac[place]. He is concerned about the migration of the leads or device. He requested applying a big dressing to the device to avoid any migration of the leads during his vacation. Past procedures 04/10/24: Lumbar Medial Branch Nerve Stimulation Lead Placement, SPR (Sprint) System, Bilateral L3 Medial Branches: mild initial relief. 03/27/24: Lumbar Medial Branch Nerve Stimulation Lead Placement, SPR (Sprint) System, Left L2 Medial Branch: mild initial relief. [facility] Medical History Dyspnea on exertion Osteoarthritis Erectile dysfunction Hypercholesteremia Diskitis Tubular adenoma SIAD (syndrome of inappropriate antidiuresis) Thoracic aortic aneurysm Constipation CAD (coronary artery disease) History of rib fracture Hard of hearing History of MRSA infection Back pain GERD (gastroesophageal reflux disease) Weakness Habitual snoring High cholesterol Hypertension Surgical History History of esophagogastroduodenoscopy (EGD) Hx of tonsillectomy History of total right knee replacement Hx of cataract extraction H/O colonoscopy Knee joint replacement status Social History Are you a primary managed care coordinator to a significant other at home: No Do you presently have visiting nurse or other home services: No Alcohol intake: current Alcohol intake frequency: 3 or more drinks per day Alcohol type: beer Patient Tobacco Use Status: Former Tobacco user Current occupational status: 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 Alert and oriented. Mood and affect appropriate. Follows and participates in conversation appropriately. Respiratory effort is unlabored. Able to transition from sit to stand unassisted. Ambulates with bilaterally normal heel strike and toe off. Results Reviewed Results Reviewed: 12/28/23: MR THORACIC SPINE WITHOUT CONTRAST FINDINGS: Mild dextrocurvature at the thoracolumbar junction. Focal kyphosis at T9-10. Subacute to chronic compression fractures of T12, L1, and L2. There is approximately 40% vertebral body height loss of T12 and less than 30% vertebral body height loss of L1 and L2. Chronic compression fracture of T9 and T10 with near complete ankylosis, unchanged. No new compression fractures seen. The remaining vertebral body heights are preserved. Multilevel disc desiccation without significant disc height loss. Multilevel endplate osteophytosis. The visualized spinal cord is normal in caliber. No abnormal cord signal. There is no significant disc herniation or spinal canal stenosis. Moderate neural foraminal narrowing at T9-10 bilaterally. No other sites of significant neural foraminal narrowing. IMPRESSION: -Subacute to chronic compression fractures of T12, L1, and L2. Chronic compression fractures of T9 and T10 with near complete ankylosis. No new compression fracture. -Multilevel degenerative changes without significant spinal canal stenosis. Moderate neural foraminal narrowing at T9-10 bilaterally. . Assessment & Plan Assessment & Plan (1) Intractable back pain: Code(s): M54.9 - Dorsalgia, unspecified Category: Medical (2) Lumbar spondylosis: Code(s): M47.816 - Spondylosis without myelopathy or radiculopathy, lumbar region Category: Medical Plan We will continue with the therapy. Lead insertion sites are clean dry and intact. Discussed reinforcing addressing to minimize lead migration, especially given his upcoming travel. He will follow up in seven weeks for removal of the sprint device. We will assess the response from the device and plan accordingly on that visit. Scribed for Dr. Rao by Leila medical psychotherapist, on 04/16/2024. I, Dr. Rao, have personally reviewed and agree with the information entered by the scribe. Coding Level of Care Code Est Pt Level 3 (49596) Diagnoses Intractable back pain M54.9 Lumbar spondylosis M47.816
[2024-04-16 09:13] VITALS: BP 167/90; PULSE 99; RESP 14; O2SAT 95; BMI 25.5
== END 2024-04-16 09:29 | disposition home or self-care (01) ==
LOC: HO.PMC 09:09
PROVIDERS: PCP Internal Medicine; Visit Provider Internal Medicine
DX: M54.9 Dorsalgia, unspecified (principal); M47.816 Spondylosis without myelopathy or radiculopathy, lumbar region
CPT/HCPCS: 99024

== ENCOUNTER → 2024-04-16 09:09 | Outpatient (BNVA) | payer MEDICARE, OTHER, SELFPAY | PROVIDERS: PCP Internal Medicine; Visit Provider Internal Medicine | DX: M47.816 Spondylosis without myelopathy or radiculopathy, lumbar region (principal); Z96.82 Presence of neurostimulator | CPT/HCPCS: 99212 ==

== ENCOUNTER 2024-05-15 06:08 | Outpatient (REF) | payer MEDICARE, SELFPAY ==
--- NOTE | ~2024-05-15 | FL_ITS ---
EXAMINATION: FLUORO GUIDANCE IN TREATMENT ROOM CLINICAL INFORMATION: Dorsalgia, unspecified. COMPARISON: None available. TECHNIQUE: Fluoroscopy supervised by: Dr. Mitesh Rao. Fluoroscopy time: 0.0 minutes. Cumulative Dose: 1.20 mGy. DAP: 0.0109 mGy-m2 (milligray-meter squared). Images: 4. FINDINGS: Microleads are seen overlying the lower lumbar spine. FL/FL guidance in treatment room IMPRESSION: Fluoroscopy during procedure. Please see procedure report for additional information. Electronically signed by: Escobar Silva MD 07/09/2024 04:33 PM [facility]
--- OUTSIDE RECORDS SUMMARY | 2024-05-20 22:46 | XMS_ITS | Continuity of Care Document ---
Author Name [facility] Organization [facility] Care Team Providers Care Paper Ruler Name Role Phone [facility] Unavailable Unavailable Problems Combined list of problems from Department of Defense and Veterans Affairs facilities. It does not include entries that were removed or entered in error. Problem Status Onset Date Problem Type Date of Resolution Comments Source Alcohol abuse Active Condition [facility] Hyperlipidemia Active Condition [facility] Hypertension Active Condition [facility] Tinnitus Active Condition [facility] Diagnosis: ICD-10-CM Z46.1 Encounter for fitting and adjustment of hearing aid Active Diagnosis [facility] Diagnosis: ICD-10-CM Z71.89 Other specified counseling Active Diagnosis [facility] Diagnosis: ICD-10-CM H90.3 Sensorineural hearing loss, bilateral Active Diagnosis [facility] Diagnosis: ICD-10-CM H61.21 Impacted cerumen, right ear Active Diagnosis [facility] Diagnosis: ICD-10-CM H90.A21 Snsrnrl hear loss, uni, r ear, with rstrcd hear cntra side Active Diagnosis [facility] Medications Combined list of outpatient medications from Department of Defense and Veterans Affairs facilities.Medications provided include 1) outpatient medications from the last 15 months, and 2) patient-reported medications. Medication Details Route Status Patient Instructions Prescription Expires Prescription Number Last Dispense Date Ordering Provider Order Date Order Qty Source AMLODIPINE BESYLATE 10MG TAB TAKE ONE TABLET BY MOUTH DAILY ORAL ACTIVE CUTDONATO WRIGHT LLIAM S 2015 [facility] BISOPROLOL FUMARATE 5MG TAB TAKE ONE TABLET BY MOUTH DAILY ORAL ACTIVE CUTDONATO WRIGHT LLIAM S 2015 [facility] LORAZEPAM 2MG TAB TAKE ONE TABLET BY MOUTH ONE TIME FOR ANXIETY TAKE ONE HOUR PRIOR TO MRI AND DIRECTED . DO NOT DRIVE FOR 12 HOURS AFTER TAKING ORAL 01/04/2024 [id number] KISHA CLEVELAND 2023 2 [facility] SIMVASTATIN 20MG TAB TAKE ONE-HALF TABLET BY MOUTH DAILY ORAL ACTIVE DONATO MARTINEZ S 2015 [facility] Immunizations Combined list of available immunizations from the Department of Defense and Veterans Affairs facilities. Immunization Series Date Given Administered By Site Reaction Lot Number CVX Code Drug Hall Tender Status Comments Source COVID-19 ([employer]), MRNA, LNP-S, PF, 30 MCG/0.3 ML DOSE 2 2020 208 complet ed PFR; [id number]; 1 [facility] COVID-19 ([employer]), MRNA, LNP-S, PF, 30 MCG/0.3 ML DOSE 1 2020 208 complet ed PFR; [id number]; 1 [facility] DTAP, UNSPECIFIED FORMULATION 2011 107 complet ed uncertain date at community PCP [facility] Results Combined list of recent chemistry, hematology and other laboratory results from Department of Defense and Veterans Affairs, ranging from 15 months to all on record, depending upon the facility. Order Name Results Value Reference Range Date Interpretation Specimen Comments Source CREATININ E (eGFR 2020) CREATININE [MASS/VOLUM E] IN SERUM OR PLASMA 0.77 mg/dL 0.50 - 1.40 12/04 Specimen Type: SERUM No comment entered. Ordering Provider: ANN CLEVELAND Report Released Date/Time: Dec 05, 2023 09:34 AM Reporting Lab: [address] [address] Performing Lab: [address] [address] [facility] CREATININ E (eGFR 2020) GLOMERULAR FILTRATION RATE/1.73 SQ M.PREDICTED [VOLUME RATE/AREA] IN SERUM, PLASMA OR BLOOD BY CREATININE- BASED FORMULA (CKD-EPI 2020) >90mL/ min 60 12/04 Specimen Type: SERUM No comment entered. Ordering Provider: ANN CLEVELAND Report Released Date/Time: Dec 05, 2023 09:34 AM Reporting Lab: [facility] [address] [address] Performing Lab: [facility] [address] [address] [facility] Vital Signs Combined list of inpatient and outpatient Vital Signs from Department of Defense and Veterans Affairs, ranging from 12 months to all on record, depending upon the facility. Vital Sign Value Date Comments Source SYSTOLIC BLOOD PRESSURE 131 04/09/20 24 10:46:56 [facility] DIASTOLIC BLOOD PRESSURE 68 024 10:46:56 [facility] PULSE OXIMETRY 98 04/09/2024 10:46:56 [facility] PAIN 0 04/09/2024 10:46:56 [facility] PULSE 67 04/09/2024 10:46:56 [facility] RESPIRATION 18 04/09/2024 10:46:56 [facility] SYSTOLIC BLOOD PRESSURE 156 12/25/19 24 08:08:28 [facility] DIASTOLIC BLOOD PRESSURE 75 024 08:08:28 [facility] PULSE OXIMETRY 96 12/25/2023 08:08:28 [facility] WEIGHT 166 12/25/2023 08:08:28 [facility] BMI 25kg/m2 12/25/2023 08:08:28 [facility] PAIN 0 12/25/2023 08:08:28 [facility] TEMPERATURE 97.2 12/25/2023 08:08:28 [facility] PULSE 101 12/25/2023 08:08:28 [facility] RESPIRATION 18 12/25/2023 08:08:28 [facility] SYSTOLIC BLOOD PRESSURE 158 12/05/19 09:10:04 [facility] DIASTOLIC BLOOD PRESSURE 83 024 09:10:04 [facility] PULSE OXIMETRY 94 12/05/2023 09:10:04 [facility] WEIGHT 166.4 12/05/2023 09:10:04 [facility] BMI 25kg/m2 12/05/2023 09:10:04 [facility] PAIN 0 12/05/2023 09:10:04 [facility] TEMPERATURE 98 12/05/2023 09:10:04 [facility] PULSE 104 12/05/2023 09:10:04 [facility] RESPIRATION 18 12/05/2023 09:10:04 [facility] Encounters Combined list of: 1) Encounters from Department of Veterans Affairs facilities going back up to thelast 18 months. 2) Encounters from the Department of Defense facilities going back up to 280 months. Location Location Details Encounter Type Encounter Number Reason For Visit Attending Provider ADM Date DC Date Status Disposition Source [facility] [place] [id number] Diagnos is: ICD-10- CM H90.3 Sensori neural hearing loss, bilater al
RICO DOUGLASS 10/29 [facility] REMOVE IMPACTED EAR WAX UNI [id number] Diagnos is: ICD-10- CM H90.A21 Snsrnrl hear loss, uni, r ear, with rstrcd hear cntra side
WINDY CLEVELAND R 12/04 [facility] OFFICE O/P EST SF 10 MIN [id number] Diagnos is: ICD-10- CM H61.21 Impacte d cerumen , right ear<br/ > WINDY CLEVELAND R 12/24 [facility] Outpatient Encounter [id number] 1.12/31 [facility] HEARING AID EXAM BOTH EARS [id number] Diagnos is: ICD-10- CM H90.3 Sensori neural hearing loss, bilater al
CLIVE,BLADIMIR L 02/13 [facility] CONFORMITY EVALUATION [id number] Diagnos is: ICD-10- CM Z46.1 Encount er for fitting and adjustm ent of hearing aid<br/ > Sheree HAQUE E 03/13 [facility] HEARING AID CHECK BOTH EARS [id number] Diagnos is: ICD-10- CM Z46.1 Encount er for fitting and adjustm ent of hearing aid<br/ > CLIVE,BLADIMIR L 03/19 [facility] EAR IMPRESSION [id number] 1. Diagnos is: ICD-10- CM Z46.1 Encount er for fitting and adjustm ent of hearing aid<br/ > MICHA CANCINO L 04/09 [facility] OFF/OP EST OCTOBER X REQ PHY/QHP [id number] Diagnos is: ICD-10- CM Z71.89 Other specifi ed rehabilitation counselor ing<br/ > Yoshi SHERIFF 04/09 [place] [facility] [place] [facility] [facility] HEARING AID REPAIR/MOD IFYING [id number] Diagnos is: ICD-10- CM Z46.1 Encount er for fitting and adjustm ent of hearing aid<br/ > SENIOR,ERIK OLE L 04[facility] Social History Combined list of available smoking, tobacco, and other social history from Department of Defense and Veterans Affairs facilities. Social History Type Response Date Comment Source Tobacco smoking status NHIS QUIT TOBACCO USE > 7 YEARS AGO 04/18/2017 [facility] [place] [facility] History of tobacco use QUIT TOBACCO USE > 7 YEARS AGO 04/18/2016 quit 35 yrs ago [facility] [place] [facility]
--- OUTSIDE RECORDS SUMMARY | 2024-05-20 22:46 | XMS_ITS | Encounter Summary ---
Author Name [facility] [place] [place] [facility] [place] Address [address] [place] [id number] Support Name Relationship Address Phone MARK MIMS Emergency Contact Unknown Insurance Providers: All historical and current Section Date Range: From patient's date of to the date document was created. This section includes the names of all active insurance providers for the patient. Insurance Provider Type of Coverage Plan Name Start of Policy Coverage End of Policy Coverage Group Number Member ID Insurance Provider's Telephone Number Policy Hillman's Name Patient's Relationship to Policy Hillman MEDICARE (WNR) MEDICARE (M) PART B Jul 12, 2015 PART B [id number] RUY MIMS PATIENT MEDICARE (WNR) MEDICARE (M) PART A Mar 11, 2014 PART A [id number] RUY MIMS PATIENT Selected Encounter This section includes the information on record at NH for the Encounter. Date/Time Encounter Type Encounter Description Reason Provider Source October 30, 2023 08:00 AM TYMPANOMETRY AUDIOLOGY ICD-10-CM H90.3 Sensorineural hearing loss, bilateral DOUGLASS,KIMBERL Y DARIEN IHE Encounter Template Text not used by [place] Assessments - Encounter Diagnoses This section includes the primary and secondary diagnoses documented for the Encounter. Date/Time Primary/Secondary Diagnosis Diagnosis Name Provider Source October 30, 2023 09:50 AM PRIMARY Sensorineural hearing loss, bilateral DOUGLASS,KIMBERL Y DARIEN [facility] [place] [facility] October 30, 2023 09:50 AM SECONDARY Tinnitus, bilateral DOUGLASS,KIMBERL Y DARIEN [facility] [place] [facility] Plan of Treatment: Future Appointments (+ 6 months) and Future Tests (+/- 45 days) The Plan of Treatment section includes future care activities for the patient [facility] This section includes future appointments and future orders which are active, pending or scheduled. Future Appointments This section includes appointments that were scheduled to occur 6 months from the date of the Encounter, up to a maximum of 20 appointments. The data comes from all [place] treatment facilities. Appointment Date/Time Appointment Type Appointme nt Facility Name Dec 05, 2023 09:00 AM AMBULATORY - MEDICINE [facility] [place] [facility] Dec 25, 2023 08:00 AM AMBULATORY - MEDICINE [facility] [place] [facility] Jan 01, 2024 11:00 AM AMBULATORY - MEDICINE [facility] [place] [facility] Feb 14, 2024 09:00 AM AMBULATORY - REHAB MEDICIN E [facility] [place] [facility] Mar 13, 2024 09:00 AM AMBULATORY - REHAB MEDICIN E [place] [facility] [place] [facility] Mar 19, 2024 10:00 AM AMBULATORY - REHAB MEDICIN E [place] [facility] [place] [facility] Apr 09, 2024 10:00 AM AMBULATORY - REHAB MEDICIN E [place] [facility] [place] [facility] Apr 09, 2024 10:30 AM AMBULATORY - MEDICINE [place] [facility] [place] [facility] Apr 17, 2024 03:00 PM AMBULATORY - REHAB MEDICIN E [place] [facility] [place] [facility] Social History: Smoking Status (Most current) and Tobacco Use (All prior to encounter date) This section includes the most current, and the historical, smoking and tobacco- related health factors from the [place] facility where the Encounter took place. Current Smoking Status This section includes the most current smoking, or tobacco-related health factor, from the [place] facility where the Encounter took place. Date/Time Current Smoking Status Comment [facility] Apr 18, 2017 09:10 AM QUIT TOBACCO USE > 7 YEARS AGO [facility] Tobacco Use History This section includes a history of the smoking, or tobacco-related health factors, that were collected on or before the date of the Encounter. The data comes from the [place] facility where the Encounter took place. Date/Time Smoking Status/Tobac co Use Comment Facility Apr 18, 2016 08:29 AM QUIT TOBACCO USE > 7 YEARS AGO quit 35 yrs ago [facility] Encounter Notes: All associated encounter notes This section contains the clinical notes associated to the Encounter. Date/Time Encounter Note(s) Provider Source October 30, 2023 07:20 AM AUDIOLOGY E & M NOTE: LOCAL TITLE: AUDIOLOGY CLINIC STANDARD TITLE: AUDIOLOGY E & M NOTE DATE OF NOTE: OCTOBER 30, 2023@07:20 ENTRY DATE: OCTOBER 30, 2023@07:20:42 AUTHOR: FLIP DOUGLASS COSIGNER: URGENCY: STATUS: COMPLETED Dx CODE: H90.3-Sensorineural Hearing Loss, Bilateral APPOINTMENT TYPE: Hearing Re-Evaluation BACKGROUND/HISTORY: [place] was seen 10/30/23 for a hearing re-evaluation appointment, unaccompanied. [place] reports longstanding hearing difficulties, right ear worse. He denies any remarkable event which may have caused his asymmetrical hearing, and denies seeing an ENT. His last hearing evaluation was on 08/25/14 and he believes his hearing has declined since then. He denies previous or current use of amplification. He reports constant bilateral tinnitus which he describes as a buzzing sound. He denies concerns of vertigo or a significant otologic history. 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 Medical history includes: Active problems - Computerized Problem List is the source for the followin. Tinnitus 2. Hyperlipidemia 3. Hypertension 4. Alcohol abuse ASSESMENT: Results of today's testing are as follows: Otoscopy revealed partially occluding dry cerumen bilaterally. Type B, flat tympanogram with normal ear canal volume, obtained in the right ear. Normal tympanogram obtained in the left ear. Pure tone audiometric testing under headphones in the right ear revealed hearing WNL through 1 kHz sloping to a severe SNHL. Testing in the left ear revealed hearing WNL through 1.5 kHz sloping to a moderately severe SNHL. Confirmed with inserts. SRT WORD RECOGNITION (Recorded [place] CNC 1/2 Word List) Right 20dBHL 64% @ 85dBHL/55dBm, 80% @ 90dBHL/60dBm, 72% @ 95dBHL/65dBm Left 10dBHL 68% @ 90dBHL/60dBm, 68% @ 85dBHL/55dBm, 60% @ 90dBHL/60dBm CLINICAL IMPRESSIONS: A 35-45 dB decrease at 2 kHz bilaterally, and a 35-40dB decrease at 6-8 kHz in the left ear was found when compared to the 08/25/14 audiological evaluation. A 40 dB asymmetry at 1.5 kHz, right ear poorer, was noted today. Recommending ENT consult due to asymmetry. Pending medical clearance from ENT is considered a hearing aid candidate. EDUCATION/COUNSELING: The patient was counseled re: today's hearing test results. He demonstrated satisfactory understanding of the education and plan, and was given the opportunity to ask questions throughout today's visit. PLAN: 1. ENT consult placed due to asymmetrical sensorineural hearing loss, right ear poorer. 2. Once medically cleared, was advised to contact the clinic to schedule a 30 minute HAS appointment. 3. Hearing re-evaluation in 3-5 years, or sooner if change in hearing occurs. Patient Education Education provided on the following topics: Hearing test results Education provided to: P Response to Education: VU Roa Patient P Family F Significant Other SO Verbalizes Understanding VU Returns Demonstration RD Performs Independently PI Lacks Comprehension LC Refused Education RE Not Applicable NA Suicide Screen: C-SSRS Screening [place]-Suicide Severity Rating Scale (C-SSRS Screener) 1. Over the past month, have you wished you were or wished you could go to sleep and not wake up? No 2. Over the past month, have you had any actual thoughts of killing yourself? No 3. Over the past month, have you been thinking about how you might do this? Response not required due to responses to other questions. 4. Over the past month, have you had these thoughts and had some intention of acting on them? Response not required due to responses to other questions. 5. Over the past month, have you started to work out or worked out the details of how to kill yourself? Response not required due to responses to other questions. 6. If yes, at any time in the past month did you intend to carry out this plan? Response not required due to responses to other questions. 7. In your lifetime, have you ever done anything, started to do anything, or prepared to do anything to end your life (for example, collected pills, obtained a gun, gave away valuables, went to the roof but didn't jump)? No 8. If YES, was this within the past 3 months? Response not required due to responses to other questions. /rosetta/ FLIP DOUGLASS STAFF SALES AGENT [employer]OD VENDING SERVICE Signed: 10/30/2023 09:51 FLIP DOUGLASS [facility]
--- OUTSIDE RECORDS SUMMARY | 2024-05-20 22:47 | XMS_ITS | Encounter Summary ---
Author Name [facility] [place] Address [address] [place] [id number] Support Name Relationship Address Phone MARK MIMS [...] PART B Jul 12, 2015 PART B [id number] 26A RUY MIMS PATIENT MEDICARE (WNR) MEDICARE (M) PART A Mar 11, 2014 PART A [id number] 26A RUY MIMS PATIENT Selected Encounter This section includes the information on record at [place] for the Encounter. Date/Time Encounter Type Encounter Description Reason Pro vider Source Jan 01, 2024 12:00 AM Outpatient Encounter COMMUNITY CARE CONSULT IHE Encounter Template Text not used by [place] Plan of Treatment: Future Appointments (+ 6 months) and Future Tests (+/- 45 days) The Plan of Treatment section includes future care activities for the patient from all [place] treatmentfacilities. This section includes future appointments and future orders which are active, pending or scheduled. Future Appointments This section includes appointments that were scheduled to occur 6 months from the date of the Encounter, up to a maximum of 20 appointments. The data comes from all [place] treatment facilities. Appointment Date/Time Appointment Type Appointme nt Facility Name Feb 14, 2024 09:00 AM [facility] Mar 13, 2024 09:00 AM AMBULATORY - REHAB MEDICIN E [place] [facility] [place] [facility] Mar 19, 2024 10:00 AM AM[facility]ULATORY - [facility] Apr 09, 2024 10:00 AM AMBULATORY - REHAB MEDICIN E [place] [facility] [place] [facility] Apr 09, 2024 10:30 AM [facility]ULATORY - [facility]INE [facility] Apr 17, 2024 03:00 PM [facility] Lab Results: +/- 30 days of the encounter This section includes the Chemistry and Hematology Lab Results on record with [place] for the patient. Radiology Reports and Pathology Reports are provided separately, in subsequent sections. Lab Results This section contains the Chemistry/Hematology Results that were resulted 30 days before or 30 daysafter the date of the Encounter. Date/Time Source Result Type Result - Unit Interpretation Reference Range Comment Dec 05, 2023 09:39 AM [facility] CREATININE (eGFR 2020) Specimen Type: SERUM No comment entered. Ordering Provider: SANGEETA CLEVELAND Report Released Date/Time: Dec 05, 2023 09:34 AM Reporting Lab: [facility] [address] [facility] [id number] Performing Lab: [address] [id number] CREATININE, Serum 0.77 mg/dL 0.50-1.40 eGFR(CKD-EPI 2020) >90 mL/min >60 Social History: Smoking Status (Most current) and Tobacco Use (All prior to encounter date) This section includes the most current, and the historical, smoking and tobacco- related health factors from the [place] facility where the Encounter took place. Current Smoking Status This section includes the most current smoking, or tobacco-related health factor, from the [place] facility where the Encounter took place. Date/Time Current Smoking Status Comment [facility] Apr 18, 2017 09:10 AM QUIT TOBACCO USE > 7 YEARS AGO [facility] Tobacco Use History This section includes a history of the smoking, or tobacco-related health factors, that were collected on or before the date of the Encounter. The data comes from the [place] facility where the Encounter took place. Date/Time Smoking Status/Tobac co Use Comment Facility Apr 18, 2016 08:29 AM QUIT TOBACCO USE > 7 YEARS AGO quit 35 yrs ago [facility] Encounter Notes: All associated encounter notes This section contains the clinical notes associated to the Encounter. Date/Time Encounter Note(s) Provider Source Jan 01, 2024 12:00 AM NONVA CONSULT: LOCAL TITLE: COMMUNITY CARE-CONSULT RESULT NOTE STANDARD TITLE: NONVA CONSULT DATE OF NOTE: JAN 01, 2024 ENTRY DATE: JAN 24, 2024@10:16:58 AUTHOR: RAMIRO MEAD EXP COSIGNER: URGENCY: STATUS: COMPLETED VistA Imaging - Scanned Document SCANNED DOCUMENT SIGNATURE NOT REQUIRED Electronically Filed: 01/24/2024 by: RAMIRO JOHNSON [facility]
--- OUTSIDE RECORDS SUMMARY | 2024-05-20 22:48 | XMS_ITS | Encounter Summary ---
Author Name [facility] [place] Organization [place] Address [address] [place] [id number] Support Name Relationship Address Phone MARK MIMS [...] PART B Jul 12, 2015 PART B [id number] 26A RUY MIMS PATIENT MEDICARE (WNR) MEDICARE (M) PART A Mar 11, 2014 PART A [id number] 26A RUY MIMS PATIENT Selected Encounter This section includes the information on record at [place] for the Encounter. Date/Time Encounter Type Encounter Description Reason Provider Source Feb 14, 2024 09:00 AM HEARING AID EXAM BOTH EARS AUDIOLOGY ICD-10-CM H90.3 Sensorineural hearing loss, bilateral ELENA DUFFY Cresencio Encounter Template Text not used by [place] Assessments - Encounter Diagnoses This section includes the primary and secondary diagnoses documented for the Encounter. Date/Time Primary/Secondary Diagnosis Diagnosis Name Provider Source Feb 14, 2024 09:27 AM PRIMARY Sensorineural hearing loss, bilateral [facility] DUFF[facility] Plan of Treatment: Future Appointments (+ 6 months) and Future Tests (+/- 45 days) The Plan of Treatment section includes future care activities for the patient from all [place] treatmentfacilities. This section includes future appointments and future orders which are active, pending or scheduled. Future Appointments This section includes appointments that were scheduled to occur 6 months from the date of the Encounter, up to a maximum of 20 appointments. The data comes from all [place] treatment facilities. Appointment Date/Time Appointment Type Appointme nt Facility Name Mar 13, 2024 09:00 AM [facility] Mar 19, 2024 10:00 AM [facility] Apr 09, 2024 10:00 AM [facility] Apr 09, 2024 10:30 AM [facility] Apr 17, 2024 03:00 PM AMBULATORY - REHAB MEDICIN E [facility] Social History: Smoking Status (Most current) and Tobacco Use (All prior to encounter date) This section includes the most current, and the historical, smoking and tobacco- related health factors from the [place] facility where the Encounter took place. Current Smoking Status This section includes the most current smoking, or tobacco-related health factor, from the [place] facility where the Encounter took place. Date/Time Current Smoking Status Comment [facility] Apr 18, 2017 09:10 AM QUIT TOBACCO USE > 7 YEARS AGO [facility] Tobacco Use History This section includes a history of the smoking, or tobacco-related health factors, that were collected on or before the date of the Encounter. The data comes from the [place] facility where the Encounter took place. Date/Time Smoking Status/Tobac co Use Comment Facility Apr 18, 2016 08:29 AM QUIT TOBACCO USE > 7 YEARS AGO quit 35 yrs ago [facility] Encounter Notes: All associated encounter notes This section contains the clinical notes associated to the Encounter. Date/Time Encounter Note(s) Provider Source Feb 14, 2024 09:19 AM AUDIOLOGY E & M NO TE: LOCAL TITLE: AUDIOLOGY CLINIC STANDARD TITLE: AUDIOLOGY E & M NOTE DATE OF NOTE: FEB 14, 2024@09:19 ENTRY DATE: FEB 14, 2024@09:19:15 AUTHOR: ELENA DUFFY EXP COSIGNER: URGENCY: STATUS: COMPLETED AUDIOLOGY CLINIC Has ADDENDA [place] was seen February 14, 2024 for hearing aid selection post clearance from ENT. He was previously diagnosed with sensorineural hearing loss in both ears and determined to be a candidate for amplification. Otoscopy revealed completely occluding cerumen right ear. Tympanometry of right ear was normal indicating cerumen not impacting right ear. 's left ear was clear with normal appearing tympanic membrane. Pure tone audiometric testing under headphones was repeated for both ears given cerumen removal previously by ENT. Thresholds in both ears stable and consistent with October 2023 audiogram. Cerumen was successfully removed via curette without incident after 's verbal consent. Ear impressions were taken of each ear without incident after cerumen removal. Post otoscopic inspection was normal. Oticon Intent JANICE Rs will be ordered for with custom canal lock JANICE molds. RTC entered for fitting/orientation of new aids on 03/13/24 at 9am in Clinic B. /rosetta/ ELENA Spangler, [facility])-A CHIEF, AUDIOLOGY/SQL DEVELOPER Signed: 02/14/2024 09:36 03/06/2024 ADDENDUM STATUS: COMPLETED Hearing aids received and certified, upcoming appointment scheduled on 03/13/2024. /rosetta/ ARASELI CHOW Audiology Health Mercury Recoverer Signed: 03/06/2024 07:44 ELENA DUFFY [facility]
--- OUTSIDE RECORDS SUMMARY | 2024-05-20 22:48 | XMS_ITS ---
Author Name [facility] [place] Address [address] [place] [id number] Support Name Relationship Address Phone MARK MIMS [...] PART B Jul 12, 2015 PART B [id number] 26A RUY MIMS PATIENT MEDICARE (WNR) MEDICARE (M) PART A Mar 11, 2014 PART A [id number] RUY MIMS PATIENT Selected Encounter This section includes the information on record at [place] for the Encounter. Date/Time Encounter Type Encounter Description Reason Provider Source Mar 19, 2024 10:00 AM HEARING AID CHECK BOTH EARS AUDIOLOGY ICD-10-CM Z46.1 Encounter for fitting and adjustment of hearing aid ELENA DUFFY Encounter Template Text not used by [place] Assessments - Encounter Diagnoses This section includes the primary and secondary diagnoses documented for the Encounter. Date/Time Primary/Secondary Diagnosis Diagnosis Name Provider Source Mar 19, 2024 10:13 AM PRIMARY Encounter for fitting and adjustment of hearing aid SIMONE CHOW [place] [facility] [place] [facility] Mar 19, 2024 10:13 AM SECONDARY Sensorineural hearing loss, bilateral SIMONE CHOW [place] [facility] [place] [facility] Mar 19, 2024 10:13 AM SECONDARY Snsrnrl hear loss, uni, r ear, with rstrcd hear cntra side NIITHEASIMONE [facility] Plan of Treatment: Future Appointments (+ 6 months) and Future Tests (+/- 45 days) The Plan of Treatment section includes future care activities for the patient from all [place] treatmentfacilities. This section includes future appointments and future orders which are active, pending or scheduled. Future Appointments This section includes appointments that were scheduled to occur 6 months from the date of the Encounter, up to a maximum of 20 appointments. The data comes from all [place] treatment facilities. Appointment Date/Time Appointment Type Appointme nt Facility Name Apr 09, 2024 10:00 AM [facility] Apr 09, 2024 10:30 AM [facility] Apr 17, 2024 03:00 PM AMBULATORY - REHAB MEDICIN E [facility] Social History: Smoking Status (Most current) and Tobacco Use (All prior to encounter date) This section includes the most current, and the historical, smoking and tobacco- related health factors from the [place] facility where the Encounter took place. Current Smoking Status This section includes the most current smoking, or tobacco-related health factor, from the [place] facility where the Encounter took place. Date/Time Current Smoking Status Comment [facility] Apr 18, 2017 09:10 AM QUIT TOBACCO USE > 7 YEARS AGO [facility] Tobacco Use History This section includes a history of the smoking, or tobacco-related health factors, that were collected on or before the date of the Encounter. The data comes from the [place] facility where the Encounter took place. Date/Time Smoking Status/Tobac co Use Comment Facility Apr 18, 2016 08:29 AM QUIT TOBACCO USE > 7 YEARS AGO quit 35 yrs ago [facility] Encounter Notes: All associated encounter notes This section contains the clinical notes associated to the Encounter. Date/Time Encounter Note(s) Provider Source Mar 19, 2024 07:45 AM AUDIOLOGY NOTE: LOCAL TITLE: AUDIOLOGY HEALTH OPERATIONS PROJECT MANAGER STANDARD TITLE: AUDIOLOGY NOTE DATE OF NOTE: MAR 19, 2024@07:45 ENTRY DATE: MAR 19, 2024@07:45:39 AUTHOR: ARASELI CHOW COSIGNER: ELENA DUFFY URGENCY: STATUS: COMPLETED AUDIOLOGY HEALTH OPERATIONS PROJECT MANAGER Has ADDENDA March 19, 2024 History/Background: [place] was seen for a hearing aid follow up, unaccompanied. The presented today reporting his right earmold is not secure in his ear, seems loose. Hearing aids: Oticon Intent miniRITE Serial Numbers: [id number] Battery size: Rechargeable Date Issued: 03/13/2024 Visual inspection confirmed loose fitting right earmold, very short canal. A new canal lock hollow rite earmold with a longer canal will be ordered today using the impression on file. Replaced wax guards. Otoscopy: Non-occluding hard cerumen right ear. Advised [place] to contact pcp for cerumen removal. Plan: Upon receipt of the right earmold, can be contacted to schedule 30 min HAC/HT appointment for vegetable picker. /rosetta/ ARASELI CHOW Audiology Health Precision Agriculture Specialist Signed: 03/19/2024 10:18 /love Spangler, CCC-A CHIEF, AUDIOLOGY/GENERAL LITHOGRAPHIC WORKER Cosigned: 03/19/2024 10:29 04/02/2024 ADDENDUM STATUS: COMPLETED Right earmold received, however, the canal is still very short. Spoke with Juve at [employer] Customer service to request the earmold be built with a longer canal. He will push new order for a longer canal through. /rosetta/ ARASELI CHOW Audiology Health Precision Agriculture Specialist Signed: 04/02/2024 14:51 /love Spangler CCC-A CHIEF, AUDIOLOGY/GENERAL LITHOGRAPHIC WORKER Cosigned: 04/02/2024 15:05 [facility]
--- OUTSIDE RECORDS SUMMARY | 2024-05-20 22:48 | XMS_ITS | Encounter Summary ---
Author Name [facility] [place] Address [address] [place] [id number] Support Name Relationship Address Phone MARK MIMS [...] PART B Jul 12, 2015 PART B [id number] 26A RUY MIMS PATIENT MEDICARE (WNR) MEDICARE (M) PART A Mar 11, 2014 PART A [id number] 26A RUY MIMS PATIENT Selected Encounter This section includes the information on record at [place] for the Encounter. Date/Time Encounter Type Encounter Description Reason Provider Source Apr 09, 2024 10:30 AM OFF/OP EST OCTOBER X REQ PHY/Q PRIMARY CARE/MEDICINE ICD-10-CM Z71.89 Other specified counseling ANGELO SHERIFF [facility] Encounter Template Text not used by [place] Assessments - Encounter Diagnoses This section includes the primary and secondary diagnoses documented for the Encounter. Date/Time Primary/Secondary Diagnosis Diagnosis Name Provider Source Apr 09, 2024 10:51 AM PRIMARY Other specified counseling [facility]GELO SHERIFF [facility] Plan of Treatment: Future Appointments (+ 6 months) and Future Tests (+/- 45 days) The Plan of Treatment section includes future care activities for the patient from all [place] treatmentfacilities. This section includes future appointments and future orders which are active, pending or scheduled. Future Appointments This section includes appointments that were scheduled to occur 6 months from the date of the Encounter, up to a maximum of 20 appointments. The data comes from all [place] treatment facilities. Appointment Date/Time Appointment Type Appointme nt Facility Name Apr 17, 2024 03:00 PM AMBULATORY - REHAB MEDICIN E [facility] Vital Signs: All taken on the encounter date This section contains inpatient and outpatient Vital Signs collected on the date of the Encounter. Date/Time Temperature Pulse Blood Pressure Respiratory Rate SP02 Pain Height Weight Body Mass Index Source Apr 09, 2024 10:46 AM 67 131/68 18 98 0 [facility] Social History: Smoking Status (Most current) and Tobacco Use (All prior to encounter date) This section includes the most current, and the historical, smoking and tobacco- related health factors from the [place] facility where the Encounter took place. Current Smoking Status This section includes the most current smoking, or tobacco-related health factor, from the [place] facility where the Encounter took place. Date/Time Current Smoking Status Comment [facility] Apr 18, 2017 09:10 AM QUIT TOBACCO USE > 7 YEARS AGO [facility] Tobacco Use History This section includes a history of the smoking, or tobacco-related health factors, that were collected on or before the date of the Encounter. The data comes from the [place] facility where the Encounter took place. Date/Time Smoking Status/Tobac co Use Comment Facility Apr 18, 2016 08:29 AM QUIT TOBACCO USE > 7 YEARS AGO quit 35 yrs ago [facility] Encounter Notes: All associated encounter notes This section contains the clinical notes associated to the Encounter. Date/Time Encounter Note(s) Provider Source Apr 09, 2024 10:47 AM PRIMARY CARE OUTPATIENT NOTE: LOCAL TITLE: AMBULATORY/OUTPATIENT CARE NOTE STANDARD TITLE: PRIMARY CARE OUTPATIENT NOTE DATE OF NOTE: APR 09, 2024@10:47 ENTRY DATE: APR 09, 2024@10:47:54 AUTHOR: JORDANA SHERIFF COSIGNER: URGENCY: STATUS: COMPLETED F Bilateral Ear Lavage D&A: [place] sent down from Audiology due to needing an ear cleaning prior to having a hearing aid fitting. Bilateral ears were lavaged without any incidence. Minimal cerumen removed from both ears. TM is present and intact bilaterally, no redness present. [place] tolerated flushing well. No dizziness or pain per . R: [place] to return to Audiology for hearing aide impression. Blood Pressure: 131/68 (04/09/2024 10:46) Pain: 0 (04/09/2024 10:46) Patient Height: 69 in [175.3 cm] (04/18/2016 08:19) Patient Weight: 166 lb [75.30 kg] (12/25/2023 08:08) Pulse: 67 (04/09/2024 10:46) Respiration: 18 (04/09/2024 10:46) Temperature: 97.2 F [36.2 C] (12/25/2023 08:08) /rosetta/ JORDANA SHERIFF Registered Nurse Signed: 04/09/2024 10:52 JORDANA SHERIFF [place] [facility]
--- OUTSIDE RECORDS SUMMARY | 2024-05-20 22:48 | XMS_ITS ---
Author Name [facility] [place] Address [address] [place] [id number] Support Name Relationship Address Phone MARK MIMS [...] PART B Jul 12, 2015 PART B [id number] 26A RUY MIMS PATIENT MEDICARE (WNR) MEDICARE (M) PART A Mar 11, 2014 PART A [id number] 26A RUY MIMS PATIENT Selected Encounter This section includes the information on record at [place] for the Encounter. Date/Time Encounter Type Encounter Description Reason Provider Source Mar 13, 2024 09:00 AM CONFORMITY EVALUATION AUDIOLOGY ICD-10-CM Z46.1 Encounter for fitting and adjustment of hearing aid MAGAN HAQUE Cresencio Encounter Template Text not used by [place] Assessments - Encounter Diagnoses This section includes the primary and secondary diagnoses documented for the Encounter. Date/Time Primary/Secondary Diagnosis Diagnosis Name Provider Source Mar 13, 2024 09:52 AM PRIMARY Encounter for fitting and adjustment of hearing aid MAGAN HAQUE [facility] [place] [facility] Mar 13, 2024 09:52 AM SECONDARY Sensorineural hearing loss, bilateral MAGAN HAQUE [facility] Plan of Treatment: Future Appointments (+ 6 months) and Future Tests (+/- 45 days) The Plan of Treatment section includes future care activities for the patient [facility] [place] [facility] This section includes future appointments and future orders which are active, pending or scheduled. Future Appointments This section includes appointments that were scheduled to occur 6 months from the date of the Encounter, up to a maximum of 20 appointments. The data comes from all [place] treatment facilities. Appointment Date/Time Appointment Type Appointme nt Facility Name Mar 19, 2024 10:00 AM [facility] Apr 09, 2024 10:00 AM [facility] Apr 09, 2024 10:30 AM AMBUL[facility] - MED[facility]INE [facility] Apr 17, 2024 03:00 PM AMBULATORY - REHAB MEDICIN E [facility] Social History: Smoking Status (Most current) and Tobacco Use (All prior to encounter date) This section includes the most current, and the historical, smoking and tobacco- related health factors from the [place] facility where the Encounter took place. Current Smoking Status This section includes the most current smoking, or tobacco-related health factor, from the [place] facility where the Encounter took place. Date/Time Current Smoking Status Comment [facility] Apr 18, 2017 09:10 AM QUIT TOBACCO USE > 7 YEARS AGO [facility] Tobacco Use History This section includes a history of the smoking, or tobacco-related health factors, that were collected on or before the date of the Encounter. The data comes from the [place] facility where the Encounter took place. Date/Time Smoking Status/Tobac co Use Comment Facility Apr 18, 2016 08:29 AM QUIT TOBACCO USE > 7 YEARS AGO quit 35 yrs ago [facility] Encounter Notes: All associated encounter notes This section contains the clinical notes associated to the Encounter. Date/Time Encounter Note(s) Provider Source Mar 13, 2024 07:47 AM AUDIOLOGY E & M NO TE: [facility] TITLE: AUDIOLOGY CLINIC STANDARD TITLE: AUDIOLOGY E & M NOTE DATE OF NOTE: MAR 13, 2024@07:47 ENTRY DATE: MAR 13, 2024@07:47:15 AUTHOR: MAGAN HAQUE COSIGNER: URGENCY: STATUS: COMPLETED Diagnosis: bilateral sensorineural hearing loss Hearing Aid Fitting: SUBJECTIVE (S): The [place] was seen for hearing aid fitting and issuance. S/He had previously been evaluated and found to exhibit significant hearing loss for which amplification was recommended. How does the patient/client best learn? verbal instruction, demonstration Does the patient/client have any cultural and anglican beliefs, emotional barriers, physical or cognitive limitations, and communication barriers which may impact his/her ability to learn? no Desire and motivation to learn? Good OBJECTIVE (O): Physical fit of earmolds/receivers and domes/hearing aids was good. [place] verified comfort. Verification of an appropriate acoustic response was obtained using Real Ear measurements (speech mapping) and NAL-NL2 targets. The reported good subjective benefit as well. Feedback search manager was run. Hearing aids were found to be meeting targets adequately and MPO was not exceeding estimated UCL. Settings stored in [facility]BAR. ASSESSMENT (A): The following device(s) was/were issued: Make: Oticon Model: Intent1 miniRITE R Serial Numbers: [id number] Battery size: RECHARGEABLE Trial Period ends: 08-26-24 Domes/wax guards, etc.: [employer]atch [employer] Earmold Information: clear, lucite, canal lock Legal Transcriptionist size/power: 3/85 detect Program Settings (VC, Programs, Buttons): right raise/left lower Fitting Formula: NAL-NL2 Remote programming: capable Counseling was completed today throughout todays appointment using a standardized curriculum that includes but is not limited to; realistic expectations with amplification in adverse listening environments, acclimatization to own voice and environmental sounds (following real-ear measurements), the importance of consistent use of amplification, proper insertion/removal, care and maintenance (including wax guards/domes if applicable), signal and alerts of devices, and charging/batteries. The was provided the opportunity to practice in office and reports confidence/understanding in all items reviewed. [place] was given written reference materials today. The was informed of and agreed to [place] policy on hearing aid issuance: Users are responsible for the maintenance and security of their devices. Determination of need to replace a hearing aid is made by the [place] bee rancher. Hearing aids will not be replaced in cases of neglect, abuse, or excessive loss. Items issued are for personal use only. Prognosis for successful hearing aid use is good. PLAN (P): 1. Contact clinic with any problems/concerns. 2. The International Outcome Inventory-Hearing Aids (IOI-BANKS) will be mailed to the in four weeks. He/she was asked to mail back to clinic after completion. Patient Education Education provided on the following topics: hearing aid management Education provided to: P Response to Education: LADAN, DENISE, PI Ro[place] Patient P Family F Significant Other SO Verbalizes Understanding VU Returns Demonstration RD Performs Independently PI Lacks Comprehension LC Refused Education RE Not Applicable NA /rosetta/ Arthur FONTENOT, [facility]A STAFF SHRIMP BOAT CAPTAIN Signed: 03/13/2024 09:56 MAGAN HAQUE [facility]
--- OUTSIDE RECORDS SUMMARY | 2024-05-20 22:49 | XMS_ITS ---
Author Name [facility] [place] Organization [place] Address [address] [place] [id number] Support Name Relationship Address Phone MARK MIMS [...] PART B Jul 12, 2015 PART B [id number] 26A RUY MIMS PATIENT MEDICARE (WNR) MEDICARE (M) PART A Mar 11, 2014 PART A [id number] 26A RUY MIMS PATIENT Selected Encounter This section includes the information on record at [place] for the Encounter. Date/Time Encounter Type Encounter Description Reason Provider Source Apr 17, 2024 03:00 PM HEARING AID REPAIR/MODIFYIN G AUDIOLOGY ICD-10-CM Z46.1 Encounter for fitting and adjustment of hearing aid JESSI MUNGUIA Encounter Template Text not used by [place] Assessments - Encounter Diagnoses This section includes the primary and secondary diagnoses documented for the Encounter. Date/Time Primary/Secondary Diagnosis Diagnosis Name Provider Source Apr 17, 2024 03:39 PM PRIMARY Encounter for fitting and adjustment of hearing aid SIMONE CHOW [place] [facility] [place] [facility] Apr 17, 2024 03:39 PM SECONDARY Sensorineural hearing loss, bilateral SIMONE CHOW [place] [facility] [place] [facility] Apr 17, 2024 03:39 PM SECONDARY Snsrnrl hear loss, uni, r ear, with rstrcd hear cntra side SIMONE CHOW [facility] Social History: Smoking Status (Most current) and Tobacco Use (All prior to encounter date) This section includes the most current, and the historical, smoking and tobacco- related health factors from the [place] facility where the Encounter took place. Current Smoking Status This section includes the most current smoking, or tobacco-related health factor, from the [place] facility where the Encounter took place. Date/Time Current Smoking Status Comment Facil it Apr 18, 2017 09:10 AM QUIT TOBACCO USE > 7 YEARS AGO [facility] Tobacco Use History This section includes a history of the smoking, or tobacco-related health factors, that were collected on or before the date of the Encounter. The data comes from the [place] facility where the Encounter took place. Date/Time Smoking Status/Tobac co Use Comment Facility Apr 18, 2016 08:29 AM QUIT TOBACCO USE > 7 YEARS AGO quit 35 yrs ago [facility] Encounter Notes: All associated encounter notes This section contains the clinical notes associated to the Encounter. Date/Time Encounter Note(s) Provider Source Apr 17, 2024 02:43 PM AUDIOLOGY NOTE: LOCAL TITLE: AUDIOLOGY HEALTH A P MANAGER STANDARD TITLE: AUDIOLOGY NOTE DATE OF NOTE: APR 17, 2024@14:43 ENTRY DATE: APR 17, 2024@14:43:15 AUTHOR: ARASELI CHOW COSIGNER: JESSI MUNGUIA URGENCY: STATUS: COMPLETED April 17, 2024 History/Background: was seen for a hearing aid follow up, unaccompanied. The presented today to pickle cutter his new right canal lock earmold. The Coleman reported the current earmold fit reasonably well, but does not feel as secure as the one on the left side. Hearing aids: Oticon Intent miniRITE Serial Numbers: [id number] Battery size: Rechargeable Date Issued: 03/13/2024 The right earmold was removed and the new one was fitted. The new earmold fit was evaluated and appeared excellent. The reported secure fit. The original earmold was provided to the Coleman in a bag to be kept as backup. Plan: The will follow up as needed. /rosetta/ ARASELI CHOW Audiology Health Intellectual Property Manager Signed: 04/17/2024 15:40 /rosetta/ LOYDA MARTINEZ, [facility]-A STAFF REINSPECTOR Cosigned: 04/17/2024 15:43 ARASELI CHOW [place] [facility]
--- OUTSIDE RECORDS SUMMARY | 2024-05-20 22:50 | XMS_ITS | Data Portability ---
Author Organization [facility], [facility] Address [address] [place] [address] Care Team Providers Care Installation & Maintenance Executive Name Role Phone MELQUIADES JIMÉNEZ Primary Care Provider Assessment No assessment recorded. Plan of Treatment Reminders Order Date Submit Date Provider Last Modified By Organization Details Last Modified Time Details Appointments None record ed. Lab None record ed. Referral None record ed. Procedures None record ed. Surgeries None record ed. Imaging None record ed. Medication Orders None record ed. Patient TargetsNo targets recorded. Patient InstructionsNo instructions recorded. Reason for Referral None Reported. Problems Name Problem SNOMED Code Status Onset Date Resolution Date Notes Provider Name and Address Organization Details Recorded Time Idiopathi c osteoarth ritis 335581062 Active 2015 Problem Code: M17.0; Problem Code Type: ICD-10; Status: 'A'; Not Available [facility] 10:57:05 Knee joint prosthesi s present 923676163517 Active 2017 Problem Code: Z96.651; Problem Code Type: ICD-10; Status: 'A'; Not Available [facility] 10:57:05 Problem Notes None recorded. Procedures Surgical History Date Name Laterality Status Provider Name and Address Organization Details Recorded Time 04/03/2024 Sports Knee 4&1 cancelled Weston Oakes PA-C [address], [place], [address], [facility] 04/03/2024 07:33:56 01/03/2024 Sports Knee 4&1 completed Weston Oakes PA-C [address], [place], [address], [facility] 01/03/2024 07:33:11 10/01/2023 Sports Knee 4&1 completed Weston Oakes PA-C [address], [place], [address], [facility] 10/01/2023 07:39:31 Imaging Results None recorded. Procedure Notes None recorded. Medical Equipment None Reported. Allergies Allergen ID Allergen Name Allergen Category Reaction Reaction Severity Criticality Documentation Date Start Date Code Code System Note Provider Name and Address Organization Details Recorded Time 31791 Medicinal product containin g penicilli n and acting as antibacte rial agent (product) medicatio n swelling Not available Not available 08/13/20232017 94618 05 SNOMED Not Available [facility] 11:39:11 Medications Name Sig Start Date Stop Date Status Note LastModified by Organization Details LastModified Time celecoxib 200 mg capsule active Not Available Not Available Not Available atorvastatin 40 mg tablet active Not Available Not Available Not Available doxycycline hyclate 100 mg capsule active Not Available Not Available N ot Available clindamycin HCl 300 mg capsule active Not Available Not Available Not Available triamcinolon e acetonide 0.5 % topical cream active Not Available Not Available Not Available azithromycin 250 mg tablet active Not Available Not Available Not Available ibuprofen 800 mg tablet active Not Available Not Available Not Available fluconazole 200 mg tablet active Not Available Not Available Not Available prednisone 20 mg tablet active Not Available Not Available Not Available doxepin 10 mg capsule active Not Available Not Available N ot Available sulfamethoxa zole 800 mg-trimethop rim 160 mg tablet active Not Available Not Available Not Available doxycycline monohydrate 100 mg tablet active Not Available Not Available Not Available tramadol 50 mg tablet active Not Available Not Available No t Available terbinafine HCl 250 mg tablet active Not Available Not Available Not Available tamsulosin 0.4 mg capsule TAKE 1 CAPSULE BY MOUTH EVERY DAY. TAKE 30 MINUTES AFTER THE SAME MEAL EACH DAY active Not Available Not Available No t Available amlodipine 10 mg tablet active Not Available Not Available Not Available triamcinolon e acetonide 0.1 % topical ointment active Not Available Not Available Not Available gabapentin 300 mg capsule TAKE 1 CAPSULE BY MOUTH THREE TIMES A DAY IN THE MORNING, AFTEROON, AND AT BEDTIME. FOR BEDTIME, TAKE WITH 2 CAPSULES OF 100 MG FOR A 500 MG BEDTIME DOSE active Not Available Not Available No t Available omeprazole 20 mg capsule,mookie yed release active Not Available Not Available Not Available folic acid 1 mg tablet TAKE 1 TABLET BY MOUTH EVERY DAY FOR NUTRITION active Not Available Not Available No t Available furosemide 20 mg tablet active Not Available Not Available Not Available gabapentin 100 mg capsule TAKE 2 CAPSULES BY MOUTH EVERY EVENING AT BEDTIME WITH 300 MG CAPSULE FOR A TOTAL BEDTIME DOSE OF 500 MG. active Not Available Not Available No t Available ipratropium bromide 0.02 % solution for inhalation active Not Available Not Available N ot Available diazepam 5 mg tablet active Not Available Not Available No t Available oxycodone 5 mg tablet TAKE 1 TABLET BY MOUTH EVERY 12 HOURS NEEDED FOR SEVERE PAIN. HOLD FOR SEDATION/SL EEPINESS, ALTERED MENTAL STATUS, OR CONFUSION active Not Available Not Available No t Available fluocinolone 0.01 % scalp oil and shower cap active Not Available Not Available N ot Available levocetirizi ne 5 mg tablet active Not Available Not Available Not Available oxycodone 10 mg tablet TAKE 1 TABLET BY MOUTH EVERY 6 HOURS FOE 3 DAYS. HOLD FOR SEDATION/SL EEPINESS, ALTERED MENTAL STATUS, OR CONFUSION active Not Available Not Available No t Available Impoyz 0.025 % topical cream APPLY TO TRUNKARMSAN D LEGS TWICE A DAY NEEDED FOR FLARES active Not Available Not Available N ot Available Zoryve 0.3 % topical cream active Not Available Not Available Not Available Vitals Date Recorded Body height Body mass index (BMI) Body weight Provider Name and Address Organization Details Last Updated DateTime 10/01/2023 172.72 cm 25.8 kg/m2 97080.7 g PRIMO MIRZA [facility] 10/01/2023 09:49:15 Date Recorded Body height Body mass index (BMI) Body weight Provider Name and Address Organization Details Last Updated DateTime 01/03/2024 172.72 cm 25.8 kg/m2 94351.7 g ARASELI WHITNEY [facility] 01/03/2024 08:44:06 Social History None recorded. Functional Status None recorded. Mental Status None recorded. Family History Nothing Reported. Medical History No medical history recorded. Past Encounters Encounter ID Performer Location Encounter Start Date Encounter Closed Date Diagnosis/Indication Diagnosis SNOMED-CT Code Diagnosis ICD10 Code [id number] SER[facility] [address] [place] [address] 10/01/2023 09:39:57 10/22/2023 06:46:39 Osteoarthritis of left knee joint 5993119799 75874 M17.12 [id number] Weston Oakes PA-C [place] [address] [place] [address] 01/03/2024 08:31:57 01/23/2024 15:15:04 Osteoarthritis of left knee joint 8866181982 17706 M17.12 Health Concerns Section Related Observation LastModified by Organization Detai ls LastModified Time None Recorded Concern Status LastModified by Organization Details LastModified Time None Recorded Advance Directives Directive None Recorded Payers Encounter Date Sequence Insurance Name Policy Number Policy Hillman Covered Member ID Hillman Member ID Guarantor Name 10/01/2023 1 [facility]: MEDICARE PPO BLUE (MEDICARE REPLACEMENT PPO) [id number] Luis Angel Scott [id number] Luis Angel Scott 01/03/2024 1 [facility]: MEDICARE PPO BLUE (MEDICARE REPLACEMENT PPO) [id number] Luis Angel Scott [id number] Luis Angel Scott Notes Date Note Type Note Provider Name and Address Organization Details Recorded Time 10/01/2023 text/html I am seeing the patient today under the supervision of {{Dayami Forrest* }} who was available but who did not see the patient. Chief Complaint The patient presents today for recheck of {{left* right}} knee osteoarthritis. Is known to have knee arthritis treated conservatively to this point with {{1 2 3*}} months relief of symptoms. Presents today for recheck secondary to increased knee pain. Past Medical/Surgical History Reviewed today, otherwise unchanged per intake sheet. Physical Findings General Appearance: ?? Well developed. ?? In no acute distress. Musculoskeletal System: Knee: General/bilateral: ?? No laxity of the knee. Right Knee: ? ? Medial aspect was tender on palpation. ?? No erythema. ?? No warmth. Left Knee: ? ? Medial aspect was tender on palpation. ?? No erythema. ?? No warmth. Musculoskeletal Scales: General/bilateral: ? ? Mild effusion noted. Neurological: ?? Oriented to time, place, and person. Gait And Stance: ?? Normal. Psychiatric: ?? Mood was appropriate to the affect. Left knee 0-120 degrees of flexion with discomfort. Assessment ? ? Osteoarthritis of knee - Plan More than 50% of todays visit was spent on direct patient counseling regarding their knee condition and treatment options both operative with knee arthroplasty and non-operative, including oral medications and injection therapy. After discussion, my clinical decision was to go forth with an intra-articular cortisone injection. After explaining risks and benefits, under meticulous aseptic technique, the knee was injected with, 1cc of Kenalog 40mgs and 4 cc of Marcaine 1/4%. They tolerated the procedures well. Post injection precautions reviewed. Follow up with us in 3 months for further discussion of total knee replacement surgery versus continued conservative treatment. Weston Oakes PA-C [address] [place] [address] [address], [place], [address], [facility] 10/01/2023 16:44:48 01/03/2024 text/html I am seeing the patient today under the supervision of {{Dayami* Adriane }} who was available but who did not see the patient. Chief Complaint The patient presents today for recheck of {{left* right}} knee osteoarthritis. Is known to have knee arthritis treated conservatively to this point with {{1 2 3*}} months relief of symptoms. Presents today for recheck secondary to increased knee pain. Past Medical/Surgical History Reviewed today, otherwise unchanged per intake sheet. Physical Findings General Appearance: ?? Well developed. ?? In no acute distress. Musculoskeletal System: Knee: General/bilateral: ?? No laxity of the knee. Right Knee: ? ? Medial aspect was tender on palpation. ?? No erythema. ?? No warmth. Left Knee: ? ? Medial aspect was tender on palpation. ?? No erythema. ?? No warmth. Musculoskeletal Scales: General/bilateral: ? ? Mild effusion noted. Neurological: ?? Oriented to time, place, and person. Gait And Stance: ?? Normal. Psychiatric: ?? Mood was appropriate to the affect. Left knee 0-120 degrees of flexion with discomfort. Assessment ? ? Osteoarthritis of knee - Plan More than 50% of todays visit was spent on direct patient counseling regarding their knee condition and treatment options both operative with knee arthroplasty and non-operative, including oral medications and injection therapy. After discussion, my clinical decision was to go forth with an intra-articular cortisone injection. After explaining risks and benefits, under meticulous aseptic technique, the knee was injected with, 1cc of Kenalog 40mgs and 4 cc of Marcaine 1/4%. They tolerated the procedures well. Post injection precautions reviewed. Follow up with us in 3 months for further discussion of total knee replacement surgery versus continued conservative treatment. Weston Oakes PA-C [address], [place], [address], [facility] 01/04/2024 07:25:10
--- OUTSIDE RECORDS SUMMARY | 2024-05-20 22:50 | XMS_ITS | Data Portability ---
Author Organization [facility], [id number] Address [address] [place] [address] Assessment No assessment recorded. Plan of Treatment [...] instructions recorded. Reason for Referral None Reported. Medical Equipment None Reported. Vitals None Recorded Social History None recorded. Functional Status None recorded. Mental Status None recorded. Family History Nothing Reported. Medical History No medical history recorded. Past Encounters Encounter ID Performer Location Encounter Start Date Encounter Closed Date Diagnosis/Indication Diagnosis SNOMED-CT Code Diagnosis ICD10 Code [id number] [address] [place] [address] 05/14/2017 08:53:48 05/14/2017 10:00:32 [id number] Kana_Erasmo Green[address] [place] [address] 06/23/2019 13:48:02 06/23/2019 15:14:27 [id number] [address] [place] [address] 10/20/2020 15:26:32 10/20/2020 16:16:34 [id number] [address] [place] [address] 07/22/2020 12:46:34 07/22/2020 13:52:23 Health Concerns Section Related Observation LastModified by Organization Detai ls LastModified Time None Recorded Concern Status LastModified by Organization Details LastModified Time None Recorded Advance Directives Directive None Recorded Payers Encounter Date Sequence Insurance Name Policy Number Policy Hillman Covered Member ID Hillman Member ID Guarantor Name 05/14/2017 1 [facility]: MEDICARE PPO BLUE (MEDICARE REPLACEMENT PPO) [id number] Luis Angel Scott [id number] Luis Angel Scott 06/23/2019 1 [facility]: MEDICARE PPO BLUE (MEDICARE REPLACEMENT PPO) [id number] Luis Angel Scott [id number] Luis Angel Scott 07/22/2020 1 [facility]: MEDICARE PPO BLUE (MEDICARE REPLACEMENT PPO) [id number] Luis Angel Scott [id number] Luis Angel Scott 10/20/2020 1 [facility]: MEDICARE PPO BLUE (MEDICARE REPLACEMENT PPO) [id number] Luis Angel Scott [id number] Luis Angel Scott
== END 2024-05-15 06:09 | disposition home or self-care (01) ==
LOC: CF 06:08
PROVIDERS: Visit Provider Internal Medicine
DX: M47.816 Spondylosis without myelopathy or radiculopathy, lumbar region (principal); M54.9 Dorsalgia, unspecified
CPT/HCPCS: 64555; C1778; J2003

== ENCOUNTER 2024-05-15 08:21 | Outpatient (AMB) | payer MEDICARE, SELFPAY ==
--- NOTE | 2024-05-12 11:33 | AM.OFFVISNUR ---
Intake Visit Reasons: Krystian Sprint replacement Allergies Penicillins Adverse Reaction (Verified 04/16/24 09:14) swollen Nursing Note Both Sprint leads have pulled significantly. I did not pull the leads, as he is still getting some relief. Scheduled to come in this Turs the for replacement. Sprint reps notofoed Assessment & Plan Assessment & Plan Orders: Orders FL guidance in treatment room 05/15/24 M54.9 - Dorsalgia, unspecified
--- NOTE | 2024-05-15 08:31 | A.OFFVIS_ITS ---
Vital Signs 05/15/24 08:38 05/15/24 09:42 BP 136/77 157/61 H Blood Pressure Location Rt brachial Rt brachial Position Sitting Sitting Pulse 88 85 Pulse Source Pulse Oximeter Pulse Oximeter Pulse Oximetry (%) 99 96 Oxygen Delivery Method Room Air Room Air Intake Visit Reasons: left lead replacement Allergies Penicillins Adverse Reaction (Verified 04/16/24 09:14) swollen HPI HPI left lead replacement: Details: Patient presents for scheduled procedure. Denies any recent cough, cold, infection, fever or other significant changes in medical history since last office visit. [facility] Medical History Dyspnea on exertion Osteoarthritis Erectile dysfunction Hypercholesteremia Diskitis Tubular adenoma SIAD (syndrome of inappropriate antidiuresis) Thoracic aortic aneurysm Constipation CAD (coronary artery disease) History of rib fracture Hard of hearing History of MRSA infection Back pain GERD (gastroesophageal reflux disease) Weakness Habitual snoring High cholesterol Hypertension Surgical History History of esophagogastroduodenoscopy (EGD) Hx of tonsillectomy History of total right knee replacement Hx of cataract extraction H/O colonoscopy Knee joint replacement status Social History Are you a primary healthcare management to a significant other at home: No Do you presently have visiting nurse or other home services: No Alcohol intake: current Alcohol intake frequency: 3 or more drinks per day Alcohol type: beer Patient Tobacco Use Status: Former Tobacco user Current occupational status: 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 After the risks, benefits and alternatives were discussed with the patient and informed consent was obtained, patient was placed in the prone position and padded to foster comfort. The skin overlying the lumbosacral spine was prepped and draped in sterile fashion. The left-sided lead was noted to be partially extruded. The remaining portion of the lead still under the skin was removed with tip intact. After identifying and marking the intended target along the course of the medial branch nerve, the skin around the planned entry point and the subcutaneous tissues were injected with lidocaine 1%. An introducer needle and stimulating probe were assembled, inserted and advanced along the intended course of the medial branch nerve as it traverses the lamina medial and inferior to the zygapophyseal joint, taking care to maintain the proper depth of insertion as the introducer is advanced under fluoroscopic guidance. The introducer needle was delivered to a location in proximity to the nerve. Multiple stimulation parameters were used to deliver stimulation to the target medial branch nerve in concert with stimulating at multiple positions around the nerve. Nerve target acquisition was confirmed noting generation of paresthesias in the paravertebral regions corresponding to the level being stimulated. Various electrical parameter combinations were tested, and the lead location was adjusted (physically relocated) until the patient indicated paresthesia/muscle t ension overlapping the distribution of the patient?s typical region of pain. The stimulating probe was removed from the introducer and a percutaneous lead was guided through the needle and delivered to a location in similar proximity to the nerve. Final location was verified with electrical stimulation and documented with fluoroscopy. The introducer needle was removed, and the exposed end of the percutaneous lead was attached to an external stimulator unit. Various electrical parameter combinations were again tested until the patient indicated paresthesia or muscle tension overlapping the distribution of the patient?s typical region of pain. After confirming that lead impedance was in the normal range, the external unit was detached, the needle was removed, and the lead was anchored at the skin. The lead was threaded into the connector block and electrical continuity and desired patient response was confirmed. The connector block was attached to the external stimulator unit. The site was covered with a sterile occlusive dressing. The patient was observed for stability of vital signs and comfort. Sprint PNS Device: Sprint PNS Device [id number] Percutaneous Peripheral Neuroelectrode Procedure: 46588 - Percutaneous Peripheral Neuroelectrode Procedure code (CPT) selection complete Office Meds lidocaine HCl 10 mg/mL (1 %) injection solution Performing Provider: Mitesh Rao MD Performing Location: [facility] Administered by: Mitesh Rao MD on 05/19/24 11:45 Dose Route Admin Location Dispensed Lot Number Expiration Date [facility] Media Marketing Coordinator 5 mL subcut 5 mL Assessment & Plan Assessment & Plan (1) Lumbar spondylosis: Code(s): M47.816 - Spondylosis without myelopathy or radiculopathy, lumbar region Category: Medical (2) Intractable back pain: Code(s): M54.9 - Dorsalgia, unspecified Category: Medical Plan Patient is status post replacement of his left L3 medial branch nerve. Patient tolerated procedure well and was discharged home in stable condition with discharge instructions. All questions were answered. We will follow-up via telephone or in clinic to assess response to therapy. A follow-up appointment was made during today's visit. Orders: Orders FL guidance in treatment room 05/15/24 M54.9 - Dorsalgia, unspecified AMB Sprint PNS 05/15/24 M47.816 - Spondylosis without myelopathy or radiculopathy, lumbar region, M54.9 - Dorsalgia, unspecified Medications: New lidocaine HCl 5 mL subcut ONCE 5 mL 0RF M47.816 - Spondylosis without myelopathy or radiculopathy, lumbar region, M54.9 - Dorsalgia, unspecified Coding Level of Care Code Procedure Only Diagnoses Lumbar spondylosis M47.816 Intractable back pain M54.9 CPT Codes Sprint PNS - Sprint PNS Device: Sprint PNS Device ([id number]) Sprint PNS - SPRINT: 07157 - Percutaneous Peripheral Neuroelectrode ([id number])
[2024-05-15 08:38] VITALS: BP 136/77; PULSE 88; O2SAT 99
[2024-05-15 09:42] VITALS: BP 157/61; PULSE 85; O2SAT 96
--- OUTSIDE RECORDS SUMMARY | 2024-05-20 23:53 | XMS_ITS ---
Author Name [facility] [facility] [place] Address [address] [place] [id number] Support Name Relationship Address Phone MARK MIMS [...] PART B Jul 12, 2015 PART B [id number] RUY MIMS PATIENT MEDICARE (WNR) MEDICARE (M) PART A Mar 11, 2014 PART A [id number] RUY MIMS PATIENT Selected Encounter This section includes the information on record at [place] for the Encounter. Date/Time Encounter Type Encounter Description Reason Provider Source Dec 25, 2023 08:00 AM OFFICE O/P EST SF 10 MIN OTOLARYNGOLOGY/ENT ICD-10-CM H61.21 Impacted cerumen, right ear RIANA CLEVELAND [facility] Encounter Template Text not used by [place] Assessments - Encounter Diagnoses This section includes the primary and secondary diagnoses documented for the Encounter. Date/Time Primary/Secondary Diagnosis Diagnosis Name Provider Source Dec 25, 2023 08:51 AM PRIMARY Impacted cerumen, right ear SANGEETA C[place] [facility] [place] [facility] Dec 25, 2023 08:51 AM SECONDARY Sensorineural hearing loss, bilateral SANGEETA [place] [facility] [place] [facility] Plan of Treatment: Future Appointments (+ 6 months) and Future Tests (+/- 45 days) The Plan of Treatment section includes future care activities for the patient from all [place] [facility] This section includes future appointments and future orders which are active, pending or scheduled. Future Appointments This section includes appointments that were scheduled to occur 6 months from the date of the Encounter, up to a maximum of 20 appointments. The data comes from all [place] treatment facilities. Appointment Date/Time Appointment Type Appointme nt Facility Name Jan 01, 2024 11:00 AM AM[place]ULATORY [place]IC[place] [facility] [place] [facility] Feb 14, 2024 09:00 AM AMBULATORY [facility]ICIN [facility] [place] [facility] Mar 13, 2024 09:00 AM AMBULATORY - REH[facility] MEDICIN [facility] [place] [facility] Mar 19, 2024 10:00 AM AMBULATORY - REHAB MEDICIN [facility] [place] [facility] Apr 09, 2024 10:00 AM AMBULATORY - REHAB MEDICIN [place] [facility] [place] [facility] Apr 09, 2024 10:30 AM AMBULATORY [place]ICINE [place] [facility] [place] [facility] Apr 17, 2024 03:00 PM AMBULATORY - REHAB MEDICIN [facility] [place] [facility] Lab Results: +/- 30 days of the encounter This section includes the Chemistry and Hematology Lab Results on record with [place] for the patient. Radiology Reports and Pathology Reports are provided separately, in subsequent sections. Lab Results This section contains the Chemistry/Hematology Results that were resulted 30 days before or 30 daysafter the date of the Encounter. Date/Time Source Result Type Result - Unit Interpretation Reference Range Comment Dec 05, 2023 09:39 [facility] CREATININE (eGFR 2020) Specimen Type: SERUM No comment entered. Ordering Provider: SANGEETA CLEVELAND Report Released Date/Time: Dec 05, 2023 09:34 AM Reporting Lab: [facility] [address] [facility] [id number] Performing Lab: [address] [address] CREATININE, Serum 0.77 mg/dL 0.50-1.40 eGFR(CKD-EPI 2020) >90 mL/min >60 Vital Signs: All taken on the encounter date This section contains inpatient and outpatient Vital Signs collected on the date of the Encounter. Date/Time Temperature Pulse Blood Pressure Respiratory Rate SP02 Pain Height Weight Body Mass Index Source Dec 25, 2023 08:08 AM 97.2 101 156/75 18 96 0 166 25 [facility] Social History: Smoking Status (Most current) and Tobacco Use (All prior to encounter date) This section includes the most current, and the historical, smoking and tobacco- related health factors from the [place] facility where the Encounter took place. Current Smoking Status This section includes the most current smoking, or tobacco-related health factor, from the [place] facility where the Encounter took place. Date/Time Current Smoking Status Comment [facility] Apr 18, 2017 09:10 AM QUIT TOBACCO USE > 7 YEARS AGO [facility] Tobacco Use History This section includes a history of the smoking, or tobacco-related health factors, that were collected on or before the date of the Encounter. The data comes from the [place] facility where the Encounter took place. Date/Time Smoking Status/Tobac co Use Comment Facility Apr 18, 2016 08:29 AM QUIT TOBACCO USE > 7 YEARS AGO quit 35 yrs ago [facility] Encounter Notes: All associated encounter notes This section contains the clinical notes associated to the Encounter. Date/Time Encounter Note(s) Provider Source Dec 25, 2023 08:45 AM OTOLARYNGOLOGY NOTE: LOCAL TITLE: OTOLARYNGOLOGY CLINIC NOTE STANDARD TITLE: OTOLARYNGOLOGY NOTE DATE OF NOTE: DEC 25, 2023@08:45 ENTRY DATE: DEC 25, 2023@08:45:15 AUTHOR: RAINA CLEVELAND COSIGNER: URGENCY: STATUS: COMPLETED DEC 25, 2023 MARYAM MIMS is a 73 y/o FORMER smoker WHITE MALE, previously in [place] FROM Feb TO Aug from [facility] [place] [facility], f/u of CERUMEN IMPACTION 73-year-old male here for follow-up of cerumen impaction. At the last visit the patient could not tolerate complete cerumen removal and therefore was asked to use drops and is here for removal. He states that he has in fact been using drops regularly. He is scheduled for his MRI of the IAC on December 31. He has been given lorazepam to tolerate that. PREVIOUS VISIT: 73-year-old male referred secondary to a right asymmetric sensorineural hearing loss. Patient states that his hearing has been down for quite some time. He has noted that his right ear has been worse than his left. He has mild bilateral tinnitus which he says is manageable and not that bothersome. He has no vertigo although generally states that he is wobbly on his feet. 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 And states that he has been weak ever since that time. He has no history of otitis media, no history of ear surgery. He was in the [place] and had noise exposure by wearing a communication headset. He has never worn hearing aids but he is interested in doing so. PMHx: Active problems - Computerized Problem List is the source for the followin. Tinnitus 2. Hyperlipidemia 3. Hypertension 4. Alcohol abuse MEDS: Active Outpatient Medications (including Supplies): LORAZEPAM 2MG TAB TAKE ONE TABLET BY MOUTH ONE TIME FOR ACTIVE ANXIETY TAKE ONE HOUR PRIOR TO MRI AND DIRECTED. DO NOT DRIVE FOR 12 HOURS AFTER TAKING Non-VA AMLODIPINE BESYLATE 10MG TAB 10MG BY MOUTH DAILY ACTIVE Non-VA BISOPROLOL FUMARATE 5MG TAB 5MG BY MOUTH DAILY ACTIVE Non-VA SIMVASTATIN 20MG TAB 10MG BY MOUTH DAILY ACTIVE ALL: Patient has answered NKA Fam Hx: Non - contributory Soc Hx: FORMER SMOKER, STOPPED 30 YEARS AGO ROS: Denies any other relavent ROS Vitals Enter at: Dec 25, 2023@08:08:28 BP: 156/75 P: 101 R: 18 T: 97.2 166 lb [75.30 kg] (12/25/2023 08:08) BMI: 24.6 CONSTITUTION: GENERAL APPEARANCE:Well developed, well nourished and groomed. No apparent acute or chronic distress. HEAD, FACE, SALIVARY GLANDS AND TMJ: Palpation of Parotid and Submandibular glands: Normal. Facial Mobility: Normal. EAR, NOSE, MOUTH AND THROAT: Pinnas - normal. Otoscopic exam: RIGHT EAR: External auditory canal CERUMEN IMPACTION, tympanic membrane mobile LEFT EAR: External auditory canal normal, tympanic membrane mobile Hearing: Moderate Hearing loss Nasal Interior: Turbinates and middle meatus - Inferior turbinates normal. Normal mucosa with no swelling, polyps, active bleeding or evidence of bleeding. Lips, Teeth and Gums: Lips normal. Oral Cavity and Oropharynx: Oral mucosa with normal color and moisture. Anterior 2/3rds of tongue normal. Breath quality normal. Hard palate normal. Normal floor of mouth, Posterior pharynx normal. PROCEDURE NOTE - PERFORMED THIS VISIT CPT 52616 Cerumen removal, unilateral or bialteral Informed consent was obtained. Risks, benefits, and alternatives were discussed. PATHOLOGY FOUND: Wax impaction in both ears PROCEDURE: The right ear was examined using the operating otoscope. Then under Direct visualization the wax was remove using suction and/or instruments. The contralateral ear was clear of cerumen. TOLERANCE: The patient tolerated this well. Assessment/Plan DEC 25, 2023: 73-year-old male here for follow-up of cerumen impaction. At the last visit the patient could not tolerate complete cerumen removal and therefore was asked to use drops and is here for removal. He states that he has in fact been using drops regularly. He is scheduled for his MRI of the IAC on December 31. He has been given lorazepam to tolerate that. Physical exam showed complete obstruction of the right EAC. This was removed using suction under the operating otoscope. Patient was sensitive but ultimately tolerated it well. Patient tolerate cerumen removal well. He he is scheduled for MRI on December 31 and I will call him with these results. If this is normal then medical clearance for amplification will be given. Complete encounter includes: Review of past medical records Time spent with patient including obtaining history, physical exam, shared decision making, procedures Counseling and answering questions Post visit documentation to include but not limited to medication and lab ordering. Total time = Minimum 20 min MEDICATION RECONCILIATION Outpatient: Has the patient been taking medications as documented in the EMLR? YES: The patient has been taking medications as documented in the EMLR. Essential Medication List for Review used to complete this medication reconciliation. INCLUDED IN THIS LIST: Alphabetical list of active outpatient prescriptions dispensed from this [place] (local) and dispensed from another [place] or [facility] facility (remote) as well as inpatient orders (local, pending and active), local clinic medications, locally documented non-VA medications, and local prescriptions that have or been discontinued in the past 90 days. - All changes in medications, including all non-VA/Herbal/OTC medications were entered into CPRS. - If there were any medications the patient should no longer take, they were discontinued. - The patient/caregiver was instructed to update this list, discard old lists, and take this list to the next appointment, whether with a VA or non-VA provider. JLV Link Data on this list may not be complete. Please check JLV. Allergies/ADRs (Tool #5) FACILITY ALLERGY/ADR -------- No Remote Allergy/ADR Data available for this patient [facility] No Known Allergies Med [facility] (Tool #1) INCLUDED IN THIS LIST: Alphabetical list of active outpatient prescriptions dispensed from this [facility] (local) and dispensed from another [place] or [facility] facility (remote) as well as inpatient orders (local pending and active), local clinic medications, locally documented non-VA medications, and local prescriptions that have or been discontinued in the past 90 days. Non-VA Meds Last Documented On: Apr 18, 2016 NOTE The display of VA prescriptions dispensed from another [place] or [facility] facility (remote) is limited to active outpatient prescription entries matched to National Drug File at the originating site and may not include some items such as investigational drugs, compounds, etc. NOT INCLUDED IN THIS LIST: Medications self-entered by the patient into personal health records (i.e. [employer]) are NOT included in this list. Non-VA medications documented outside this [place], remote inpatient orders (regardless of status) and remote clinic medications are NOT included in this list. The patient and provider must always discuss medications the patient is taking, regardless of where the medication was dispensed or obtained. Non-VA AMLODIPINE BESYLATE 10MG TAB TAKE ONE TABLET BY MOUTH DAILY Non-VA BISOPROLOL FUMARATE 5MG TAB TAKE ONE TABLET BY MOUTH DAILY OUTPT LORAZEPAM 2MG TAB (Status = Active) TAKE ONE TABLET BY MOUTH ONE TIME FOR ANXIETY TAKE ONE HOUR PRIOR TO MRI AND DIRECTED. DO NOT DRIVE FOR 12 HOURS AFTER TAKING Rx# [id number] Last Released: 12/10/23 Qty/Days Supply: 07/12 Rx Expiration Date: 01/04/24 Refills Remainin Indication: FOR ANXIETY Non-VA SIMVASTATIN 20MG TAB TAKE ONE-HALF TABLET BY MOUTH DAILY SUPPLIES /rosetta/ Raina Cleveland MD Otolaryngology Signed: 12/25/2023 08:51 RAINA CLEVELAND [facility]
--- OUTSIDE RECORDS SUMMARY | 2024-05-20 23:53 | XMS_ITS ---
Author Name [facility] [place] Organization [facility] [place] Address [address] [place] [id number] Support Name Relationship Address Phone MARK MIMS Emergency Contact Unknown [phone] Insurance Providers: All historical and current Section [...] PART B Jul 12, 2015 PART B [id number] RUY MIMS PATIENT MEDICARE (WNR) MEDICARE (M) PART A Mar 11, 2014 PART A [id number] RUY MIMS PATIENT Selected Encounter This section includes the information on record at [place] for the Encounter. Date/Time Encounter Type Encounter Description Reason Provider Source Dec 05, 2023 09:00 AM REMOVE IMPACTED EAR WAX UNI OTOLARYNGOLOGY/ENT ICD-10-CM H90.A21 Snsrnrl hear loss, uni, r ear, with rstrcd hear cntra side RAINA GEORGES [facility] Encounter Template Text not used by PA Assessments - Encounter Diagnoses This section includes the primary and secondary diagnoses documented for the Encounter. Date/Time Primary/Secondary Diagnosis Diagnosis Name Provider Source Dec 05, 2023 03:53 PM PRIMARY Snsrnrl hear loss, uni, r ear, with rstrcd hear cntra side RAINA GEORGES [place] [facility] [place] [facility] Dec 05, 2023 03:53 PM SECONDARY Tinnitus, bilateral [facility] Plan of Treatment: Future Appointments (+ 6 months) and Future Tests (+/- 45 days) The Plan of Treatment section includes future care activities for the [facility] This section includes future appointments and future orders which are active, pending or scheduled. Future Appointments This section includes appointments that were scheduled to occur 6 months from the date of the Encounter, up to a maximum of 20 appointments. The data comes from all [place] treatment facilities. Appointment Date/Time Appointment Type Appointme nt Facility Name Dec 25, 2023 08:00 AM AMBULATORY - MEDICINE PA [facility] [place] [facility] Jan 01, 2024 11:00 AM AMBULATORY - MEDICINE [place] [facility] [place] [facility] Feb 14, 2024 09:00 AM AMBULATORY - REHAB MEDICIN E [place] [facility] [place] [facility] Mar 13, 2024 09:00 AM AMBULATORY - REHAB MEDICIN E [place] [facility] [place] [facility] Mar 19, 2024 10:00 [facility] [place] [facility] Apr 09, 2024 10:00 AM AMBULATORY - REHAB MEDICIN E [place] [facility] [place] [facility] Apr 09, 2024 10:30 AM AMBULATORY - MEDICINE PA [facility] [place] [facility] Apr 17, 2024 03:00 PM [facility] Lab Results: +/- 30 days of the encounter This section includes the Chemistry and Hematology Lab Results on record with PA for the patient. Radiology Reports and Pathology Reports are provided separately, in subsequent sections. Lab Results This section contains the Chemistry/Hematology Results that were resulted 30 days before or 30 daysafter the date of the Encounter. Date/Time Source Result Type Result - Unit Interpretation Reference Range Comment Dec 05, 2023 09:39 [facility] CREATININE (eGFR 2020) Specimen Type: SERUM No comment entered. Ordering Provider: SANGEETA GEORGES Report Released Date/Time: Dec 05, 2023 09:34 AM [facility] [address] [facility] [id number] Performing Lab: [facility] [address] [facility] [id number] CREATININE, Serum 0.77 mg/dL 0.50-1.40 eGFR(CKD-EPI 2020) >90 mL/min >60 Vital Signs: All taken on the encounter date This section contains inpatient and outpatient Vital Signs collected on the date of the Encounter. Date/Time Temperature Pulse Blood Pressure Respiratory Rate SP02 Pain Height Weight Body Mass Index Source Dec 05, 2023 09:10 AM 98 104 158/83 18 94 0 166.4 25 [facility] Social History: Smoking Status (Most current) and Tobacco Use (All prior to encounter date) This section includes the most current, and the historical, smoking and tobacco- related health factors from the [place] facility where the Encounter took place. Current Smoking Status This section includes the most current smoking, or tobacco-related health factor, from the [place] facility where the Encounter took place. Date/Time Current Smoking Status Comment [facility] Apr 18, 2017 09:10 AM QUIT TOBACCO USE > 7 YEARS AGO [facility] Tobacco Use History This section includes a history of the smoking, or tobacco-related health factors, that were collected on or before the date of the Encounter. The data comes from the [place] facility where the Encounter took place. Date/Time Smoking Status/Tobac co Use Comment Facility Apr 18, 2016 08:29 AM QUIT TOBACCO USE > 7 YEARS AGO quit 35 yrs ago [facility] Encounter Notes: All associated encounter notes This section contains the clinical notes associated to the Encounter. Date/Time Encounter Note(s) Provider Source Jan 24, 2024 10:40 AM ADDENDUM: LOCAL TITLE: Addendum STANDARD TITLE: ADDENDUM DATE OF NOTE: JAN 24, 2024@10:40:16 ENTRY DATE: JAN 24, 2024@10:40:18 AUTHOR: RAINA GEORGES COSIGNER: URGENCY: STATUS: COMPLETED Left voicemail on patient's cell phone. MRI of the IAC showed no retrocochlear pathology. PATIENT IS THEREFORE MEDICALLY CLEARED FOR AMPLIFICATION. I left the phone number to contact audiology directly to make that appointment. I also left a message that I am here today if he has any questions but I will be out of the office for 2 weeks. He is welcome to contact the clinic and speak with either of my nurses if he has any questions. MRI of the [facility] 01-01-2024 Findings: The 7th and 8th cranial nerve complexes are normal in course and caliber. No signal abnormality is visualized within the inner ear structures on the precontrast axial T1-weighted sequence. Fluid signal is preserved within the cochlea, semicircular canals and vestibule on the high-resolution axial fiesta sequence. There is no abnormal labyrinthine or intracanicular enhancement on postcontrast imaging. No CP angle lesion. No acute infarct. No acute intra cranial hemorrhage or extra-axial fluid collection. Mild to moderate global cerebral volume loss. Patchy T2 hyperintense foci in the subcortical and periventricular white matter and right thalamus, nonspecific but presumably moderate chronic microangiopathy. Chronic lacunar infarct in the right centrum semiovale and clustered prominent perivascular spaces within the right frontal deep white matter. No abnormal intraparenchymal or leptomeningeal enhancement. No mass effect or herniation pattern. Normal appearance in the midline structures. Normal intracranial arterial and dural venous sinus flow voids. Lens replacement. A few scattered small retention cyst in the maxillary sinuses and a left ethmoid air cells some of which are proteinaceous. The craniocervical junction is intact. Normal marrow signal. Impression: 1. No retrocochlear pathology or acute intracranial abnormality. 2. Mild to moderate global cerebral volume loss and nonspecific white matter disease presumably moderate chronic microangiopathy. Chronic lacunar infarct in the right centrum semiovale. /es/ Raina Georges MD Otolaryngology Signed: 01/24/2024 10:49 Receipt Acknowledged By: 01/24/2024 11:45 /es/ Silva Blanco LPN Licensed Practical Nurse 01/25/2024 07:57 /rosetta/ HAN BELTRAN LPN Specialty Care --- Original Document --- 12/05/23 CONSULT REPORT/OTOLARYNGOLOGY: CONSULT REQUESTED FROM AUDIOLOGY DEC 05, 2023 MARYAM MIMS is a 73 y/o FORMER smoker WHITE MALE, previously in [employer] FROM Feb TO Aug from [facility] [place], w/chief complaint of HEARING LOSS, RIGHT GREATER THAN LEFT 78-year-old male referred secondary to a right asymmetric [...] of ear surgery. He was in the [place] and had noise exposure by wearing a communication headset. He has never worn hearing aids but he is interested in doing so. PMHx: Active problems - Computerized Problem List is the source for the followin. Tinnitus 2. Hyperlipidemia 3. Hypertension 4. Alcohol abuse Service Connected Disabilities with % Eligibility: [place] LESS THAN 50% VERIFIED Total S/C %: 10 IMPAIRED HEARING 0% S/C TINNITUS 10% S/C MEDS: Active Outpatient Medications (including Supplies): Non-VA AMLODIPINE BESYLATE 10MG TAB 10MG BY MOUTH DAILY ACTIVE Non-VA BISOPROLOL FUMARATE 5MG TAB 5MG BY MOUTH DAILY ACTIVE Non-VA SIMVASTATIN 20MG TAB 10MG BY MOUTH DAILY ACTIVE ALL: Patient has answered NKA Fam Hx: Non - contributory Soc Hx: FORMER SMOKER, STOPPED 30 YEARS AGO ROS: Denies any other relavent ROS Old Vitals Enter at: Dec 05, 2023@09:10:04 BP: 158/83 P: 104 R: 18 T: 98 166.4 lb [75.48 kg] (12/05/2023 09:10) BMI: 24.6 CONSTITUTION: GENERAL APPEARANCE:Well developed, well nourished and groomed. No apparent acute or chronic distress. HEAD, FACE, SALIVARY GLANDS AND TMJ: Palpation of Parotid and Submandibular glands: Normal. Facial Mobility: Normal. EAR, NOSE, MOUTH AND THROAT: Pinnas - normal. Otoscopic exam: RIGHT EAR: External auditory canal normal, tympanic membrane mobile LEFT EAR: External auditory [...] Normal floor of mouth, Posterior pharynx normal. NECK AND THYROID: Neck: no adenopathy; no neck masses. RESPIRATORY: Respiratory effort normal. LYMPH NODES: Neck nodes: normal. NEUROLOGIC: Higher integrative functions: Normal orientation, memory, attention span and concentration, language, and fund of knowledge. Cranial nerves: Cranial nerves II-XII grossly intact and symmetrical. PSYCHIATRIC: Mood and affect: normal and appropriate to the situation. PROCEDURE NOTE - PERFORMED THIS VISIT CPT 35406 Cerumen removal, unilateral or bialteral Informed consent was obtained. Risks, benefits, and alternatives were discussed. PATHOLOGY FOUND: Wax impaction in both ears PROCEDURE: The right ear was examined using the operating otoscope. There was very significant cerumen. Patient tolerated partial removal but did not tolerate complete removal. The left ear was then examined and then under Direct visualization the wax was remove using suction and/or instruments. The same procedure was repeated on the opposite side. TOLERANCE: The patient tolerated this well. AUDIOGRAM 10/30/2023 Otoscopy revealed partially occluding dry cerumen bilaterally. [...] inserts. SRT WORD RECOGNITION (Recorded [place] [facility] 06/12 Word List) Right 20dBHL 64% @ 85dBHL/55dBm, [...] kHz, right ear poorer, was noted today. ASSESSMENT/PLAN DEC 05, 2023: The patient has an asymmetric RIGHT sensorineural hearing loss. I have ordered an MRI of the IAC and he will followup thereafter. Patient has no implants. He states he is claustrophobic and therefore Ativan has been written for him to use prior to the MRI. He was instructed not to drive himself to or from the MRI if he has taken the Ativan. If the MRI is normal, hearing aid clearance will be warranted. Listening strategies were discussed. Patient had bilateral cerumen impaction. He did not tolerate complete removal on the right. He was asked to use Debrox drops twice daily for the next 2 weeks and he will follow-up for complete removal on the right ear. Complete encounter includes: Review of past medical records Time spent with patient including obtaining history, physical exam, shared decision making, procedures Counseling and answering questions Post visit documentation to include but not limited to medication and lab ordering. Total time = Minimum 45 min Medication Reconciliation: Outpatient: Has the patient been taking medications as documented in the EMLR? YES: The patient has been taking medications as documented in the EMLR. Essential Medication List for Review used to complete this medication reconciliation. INCLUDED IN THIS LIST: Alphabetical list of active outpatient prescriptions dispensed from this [facility] (local) and dispensed from another [place] or DoD facility (remote) as well as inpatient orders [...] Remote Allergy/ADR Data available for this patient [place] [facility] [place] [facility] No Known Allergies Med [facility] INCLUDED IN THIS LIST: Alphabetical list of active outpatient prescriptions dispensed from this VA (local) and dispensed from another VA or DoD facility (remote) as well as inpatient orders (local pending and active), local clinic medications, locally documented non-VA medications, and local prescriptions that have or been discontinued in the past 90 days. Non-VA Meds Last Documented On: Apr 18, 2016 NOTE The display of VA prescriptions dispensed from another VA or DoD facility (remote) is limited to active outpatient prescription entries matched to National Drug File at the originating site and may not include some items such as investigational drugs, compounds, etc. NOT INCLUDED IN THIS LIST: Medications self-entered by the patient into personal health records (i.e. twago - teamwork across global offices) are NOT included in this list. Non-VA medications documented outside this PA, remote inpatient orders (regardless of status) and [...] DAILY OUTPT LORAZEPAM 2MG TAB (Status = Pending) TAKE ONE TABLET BY MOUTH ONE TIME Take one hour prior to MRI. No not drive for 12 hours after taking Login Date: 12/05/23 Qty/Days Supply: 07/12 Refills Ordered: 0 Non-VA SIMVASTATIN 20MG TAB TAKE ONE-HALF TABLET BY MOUTH DAILY SUPPLIES /rosetta/ Raina Georges MD Otolaryngology Signed: 12/05/2023 15:55 RAINA GEORGES [facility] [place] [facility] Dec 05, 2023 09:56 AM ACCOUNTING OF DISCLOSURES NOTE: LOCAL TITLE: STATE PRESCRIPTION DRUG MONITORING PROGRAM STANDARD TITLE: ACCOUNTING OF DISCLOSURES NOTE DATE OF NOTE: DEC 05, 2023@09:56:38 ENTRY DATE: DEC 05, 2023@09:56:38 AUTHOR: RAINA GEORGES EXP COSIGNER: URGENCY: STATUS: COMPLETED This PDMP query was submitted by Raina Georges. The clinical justification for this PDMP query is to review controlled substances prescribed outside of the VA, and any additional information that may become available, as an important component of standard clinical care, and in accordance with [facility] policy. Patient information was shared with the PDMP [place]. Prescription(s) filled outside the VA in the last 90 days are noted. However, they do not raise significant safety concerns and do not influence the treatment plan at this time. Oxycodone has been Rx, I am Rx ativan for different purpose /es/ Raina Georges MD Otolaryngology Signed: 12/05/2023 09:56 RAINA GEORGES [place] [facility] [place] [facility] Dec 05, 2023 09:42 AM OTOLARYNGOLOGY CONSULT: LOCAL TITLE: CONSULT REPORT/OTOLARYNGOLOGY STANDARD TITLE: OTOLARYNGOLOGY CONSULT DATE OF NOTE: DEC 05, 2023@09:42 ENTRY DATE: DEC 05, 2023@09:42:43 AUTHOR: RAINA GEORGES EXP COSIGNER: URGENCY: STATUS: COMPLETED CONSULT REPORT/OTOLARYNGOLOGY Has ADDENDA CONSULT REQUESTED FROM AUDIOLOGY DEC 05, 2023 MARYAM MIMS is a 73 y/o FORMER smoker WH[place] MALE, previously in [facility] FROM Feb TO Aug from [facility] [place], w/chief complaint of HEARING LOSS, RIGHT GREATER THAN LEFT 78-year-old male referred secondary to a right asymmetric [...] of ear surgery. He was in the [place] and had noise exposure by wearing a communication headset. He has never worn hearing aids but he is interested in doing so. PMHx: Active problems - Computerized Problem List is the source for the followin. Tinnitus 2. Hyperlipidemia 3. Hypertension 4. Alcohol abuse Service Connected Disabilities with % Eligibility: [place] LESS THAN 50% VERIFIED Total S/C %: 10 IMPAIRED HEARING 0% S/C TINNITUS 10% S/C MEDS: Active Outpatient Medications (including Supplies): Non-VA AMLODIPINE BESYLATE 10MG TAB 10MG BY MOUTH DAILY ACTIVE Non-VA BISOPROLOL FUMARATE 5MG TAB 5MG BY MOUTH DAILY ACTIVE Non-VA SIMVASTATIN 20MG TAB 10MG BY MOUTH DAILY ACTIVE ALL: Patient has answered NKA Fam Hx: Non - contributory Soc Hx: FORMER SMOKER, STOPPED 30 YEARS AGO ROS: Denies any other relavent ROS Old Vitals Enter at: Dec 05, 2023@09:10:04 BP: 158/83 P: 104 R: 18 T: 98 166.4 lb [75.48 kg] (12/05/2023 09:10) BMI: 24.6 CONSTITUTION: GENERAL APPEARANCE:Well developed, well nourished and groomed. No apparent acute or chronic distress. HEAD, FACE, SALIVARY GLANDS AND TMJ: Palpation of Parotid and Submandibular glands: Normal. Facial Mobility: Normal. EAR, NOSE, MOUTH AND THROAT: Pinnas - normal. Otoscopic exam: RIGHT EAR: External auditory canal normal, tympanic membrane mobile LEFT EAR: External auditory [...] Normal floor of mouth, Posterior pharynx normal. NECK AND THYROID: Neck: no adenopathy; no neck masses. RESPIRATORY: Respiratory effort normal. LYMPH NODES: Neck nodes: normal. NEUROLOGIC: Higher integrative functions: Normal orientation, memory, attention span and concentration, language, and fund of knowledge. Cranial nerves: Cranial nerves II-XII grossly intact and symmetrical. PSYCHIATRIC: Mood and affect: normal and appropriate to the situation. PROCEDURE NOTE - PERFORMED THIS VISIT CPT 23126 Cerumen removal, unilateral or bialteral Informed consent was obtained. Risks, benefits, and alternatives were discussed. PATHOLOGY FOUND: Wax impaction in both ears PROCEDURE: The right ear was examined using the operating otoscope. There was very significant cerumen. Patient tolerated partial removal but did not tolerate complete removal. The left ear was then examined and then under Direct visualization the wax was remove using suction and/or instruments. The same procedure was repeated on the opposite side. TOLERANCE: The patient tolerated this well. AUDIOGRAM 10/30/2023 Otoscopy revealed partially occluding dry cerumen bilaterally. [...] inserts. SRT WORD RECOGNITION (Recorded [place] [facility] / Word List) Right 20dBHL 64% @ 85dBHL/55dBm, [...] kHz, right ear poorer, was noted today. ASSESSMENT/PLAN DEC 05, 2023: The patient has an asymmetric RIGHT sensorineural hearing loss. I have ordered an MRI of the IAC and he will followup thereafter. Patient has no implants. He states he is claustrophobic and therefore Ativan has been written for him to use prior to the MRI. He was instructed not to drive himself to or from the MRI if he has taken the Ativan. If the MRI is normal, hearing aid clearance will be warranted. Listening strategies were discussed. Patient had bilateral cerumen impaction. He did not tolerate complete removal on the right. He was asked to use Debrox drops twice daily for the next 2 weeks and he will follow-up for complete removal on the right ear. Complete encounter includes: Review of past medical records Time spent with patient including obtaining history, physical exam, shared decision making, procedures Counseling and answering questions Post visit documentation to include but not limited to medication and lab ordering. Total time = Minimum 45 min Medication Reconciliation: Outpatient: Has the patient been taking medications as documented in the EMLR? YES: The patient has been taking medications as documented in the EMLR. Essential Medication List for Review used to complete this medication reconciliation. INCLUDED IN THIS LIST: Alphabetical list of active outpatient prescriptions dispensed from this VA (local) and dispensed from another PA or [facility] facility (remote) as well as inpatient [...] Remote Allergy/ADR Data available for this patient [facility] [place] [facility] No Known Allergies Med [facility] INCLUDED IN THIS LIST: Alphabetical list of active outpatient prescriptions dispensed from this PA (local) and dispensed from another VA or DoD facility (remote) as well as inpatient orders (local pending and active), local clinic medications, locally documented non-VA medications, and local prescriptions that have or been discontinued in the past 90 days. Non-VA Meds Last Documented On: Apr 18, 2016 NOTE The display of VA prescriptions dispensed from another VA or DoD facility (remote) is limited to active outpatient prescription entries matched to National Drug File at the originating site and may not include some items such as investigational drugs, compounds, etc. NOT INCLUDED IN THIS LIST: Medications self-entered by the patient into personal health records (i.e. twago - teamwork across global offices) are NOT included in this list. Non-VA medications documented outside this PA, remote inpatient orders (regardless of status) and [...] DAILY OUTPT LORAZEPAM 2MG TAB (Status = Pending) TAKE ONE TABLET BY MOUTH ONE TIME Take one hour prior to MRI. No not drive for 12 hours after taking Login Date: 12/05/23 Qty/Days Supply: 07/12 Refills Ordered: 0 Non-VA SIMVASTATIN 20MG TAB TAKE ONE-HALF TABLET BY MOUTH DAILY SUPPLIES /rosetta/ Raina Georges MD Otolaryngology Signed: 12/05/2023 15:55 01/24/2024 ADDENDUM STATUS: COMPLETED Left voicemail on patient's cell phone. MRI of the IAC showed no retrocochlear pathology. PATIENT IS THEREFORE MEDICALLY CLEARED FOR AMPLIFICATION. I left the phone number to contact audiology directly to make that appointment. I also left a message that I am here today if he has any questions but I will be out of the office for 2 weeks. He is welcome to contact the clinic and speak with either of my nurses if he has any questions. MRI of the IAC [facility] 01-01-2024 Findings: The 7th and 8th cranial nerve complexes are normal in course and caliber. No signal abnormality is visualized within the inner ear structures on the precontrast axial T1-weighted sequence. Fluid signal is preserved within the cochlea, semicircular canals and vestibule on the high-resolution axial fiesta sequence. There is no abnormal labyrinthine or intracanicular enhancement on postcontrast imaging. No CP angle lesion. No acute infarct. No acute intra cranial hemorrhage or extra-axial fluid collection. Mild to moderate global cerebral volume loss. Patchy T2 hyperintense foci in the subcortical and periventricular white matter and right thalamus, nonspecific but presumably moderate chronic microangiopathy. Chronic lacunar infarct in the right centrum semiovale and clustered prominent perivascular spaces within the right frontal deep white matter. No abnormal intraparenchymal or leptomeningeal enhancement. No mass effect or herniation pattern. Normal appearance in the midline structures. Normal intracranial arterial and dural venous sinus flow voids. Lens replacement. A few scattered small retention cyst in the maxillary sinuses and a left ethmoid air cells some of which are proteinaceous. The craniocervical junction is intact. Normal marrow signal. Impression: 1. No retrocochlear pathology or acute intracranial abnormality. 2. Mild to moderate global cerebral volume loss and nonspecific white matter disease presumably moderate chronic microangiopathy. Chronic lacunar infarct in the right centrum semiovale. // Raina Georges MD Otolaryngology Signed: 01/24/2024 10:49 Receipt Acknowledged By: * AWAITING SIGNATURE * SILVA BLANCO * AWAITING SIGNATURE * HAN BELTRAN JACQUELYN R [facility]
--- OUTSIDE RECORDS SUMMARY | 2024-05-20 23:53 | XMS_ITS | Continuity of Care Document ---
Author Name [facility] Organization [facility] Care Team Providers Care Vacuum Pan Operator Name Role Phone [facility] Unavailable Unavailable Problems Combined list of problems [...] FOR 12 HOURS AFTER TAKING ORAL 01/04/2024 [id number] KISHA CLEVELAND 2023 2 [facility] SIMVASTATIN 20MG TAB TAKE ONE-HALF TABLET BY MOUTH DAILY ORAL ACTIVE DONATO MARTINEZ S 2015 [facility] Immunizations Combined list of available immunizations from the Department of Defense and Veterans Affairs facilities. Immunization Series Date Given Administered By Site Reaction Lot Number CVX Code Drug Mine Expert Status Comments Source COVID-19 ([employer]), MRNA, LNP-S, PF, 30 MCG/0.3 ML DOSE 2 2020 208 complet ed PFR; [id number]; 1 [facility] COVID-19 ([employer]), MRNA, LNP-S, PF, 30 MCG/0.3 ML DOSE 1 2020 208 complet ed PFR; [id number]; 1 [facility] DTAP, UNSPECIFIED FORMULATION 2011 107 complet ed uncertain date at community PCP [facility] Results Combined list of recent chemistry, hematology [...] Dec 05, 2023 09:34 AM Reporting Lab: [address] [address] Performing Lab: [address] [address] [facility] CREATININ E (eGFR 2020) GLOMERULAR FILTRATION RATE/1.73 SQ M.PREDICTED [VOLUME RATE/AREA] IN SERUM, PLASMA OR BLOOD BY CREATININE- BASED FORMULA (CKD-EPI 2020) >90mL/ min 60 12/04 Specimen Type: SERUM No comment entered. Ordering Provider: ANN CLEVELAND Report Released Date/Time: Dec 05, 2023 09:34 AM Reporting Lab: [facility] [address] [facility] [facility] [address] Performing Lab: [facility] [address] [facility] [facility] [address] [facility] [place] [facility] Vital Signs Combined list of inpatient and [...] [facility] [place] [place] [id number] Diagnos is: ICD-10- CM H90.3 Sensori neural hearing loss, bilater al
RICO DOUGLASS 10/29 [facility] REMOVE IMPACTED EAR WAX UNI 71321-6.63 [id number] Diagnos is: ICD-10- CM H90.A21 Snsrnrl hear loss, uni, r ear, with rstrcd hear cntra side
WINDY CLEVELAND R 12/04 [facility] OFFICE O/P EST SF 10 MIN [id number] Diagnos is: ICD-10- CM H61.21 Impacte d cerumen , right ear<br/ > WINDY CLEVELAND R 12/24 [facility] Outpatient Encounter [id number] 1.12/31 [facility] HEARING AID EXAM BOTH EARS [id number] Diagnos is: ICD-10- CM H90.3 Sensori neural hearing loss, bilater al
CLIVE,BLADIMIR L 02/13 [facility] CONFORMITY EVALUATION [id number] Diagnos is: ICD-10- CM Z46.1 Encount er for fitting and adjustm ent of hearing aid<br/ > Sheree HAQUE E 03/13 [facility] HEARING AID CHECK BOTH EARS [id number] Diagnos is: ICD-10- CM Z46.1 Encount er for fitting and adjustm ent of hearing aid<br/ > CLIVE,BLADIMIR L 03/19 [facility] EAR IMPRESSION 43070-9.63 1. 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 Social History Type Response Date Comment Source Tobacco smoking status NHIS QUIT TOBACCO USE > 7 YEARS AGO 04/18/2017 [place] [facility] [place] [facility] History of tobacco use QUIT TOBACCO USE > 7 YEARS AGO 04/18/2016 quit 35 yrs ago [place] [facility] [place] [facility]
--- OUTSIDE RECORDS SUMMARY | 2024-05-20 23:55 | XMS_ITS | Encounter Summary ---
Author Name [facility] Address [address] [place] [address] Support Name Relationship Address Phone MARK MIMS Emergency Contact Unknown [phone] Insurance Providers: All historical and current Section [...] PART B Jul 12, 2015 PART B [id number] 26A RUY MIMS PATIENT MEDICARE (WNR) MEDICARE (M) PART A Mar 11, 2014 PART A [id number] RUY MIM[employer] PATIENT Selected Encounter This section includes the information on record at [place] for the Encounter. Date/Time Encounter Type Encounter Description Reason Provider Source Apr 09, 2024 10:00 AM EAR IMPRESSION AUDIOLOGY ICD-10-CM Z46.1 Encounter for fitting and adjustment of hearing aid JIMMIE CANCINO Encounter Template Text not used by [place] Assessments - Encounter Diagnoses This section includes the primary and secondary diagnoses documented for the Encounter. Date/Time Primary/Secondary Diagnosis Diagnosis Name Provider Source Apr 09, 2024 10:15 AM PRIMARY Encounter for fitting and adjustment of hearing aid SIMONE CHOW [facility] [place] [facility] Apr 09, 2024 10:15 AM SECONDARY Sensorineural hearing loss, bilateral [facility] Apr 09, 2024 10:15 AM SECONDARY Snsrnrl hear loss, uni, r ear, with rstrcd hear cntra side SIMONE CHOW [facility] Plan of Treatment: Future Appointments (+ 6 months) and Future Tests (+/- 45 days) The Plan of Treatment section includes future care activities for the patient from all [place] treatmentfacilities. This section includes future appointments and future orders which are active, pending or scheduled. Future Appointments This section includes appointments that were scheduled to occur 6 months from the date of the Encounter, up to a maximum of 20 appointments. The data comes from all [place] treatment facilities. Appointment Date/Time Appointment Type Appointme nt Facility Name Apr 17, 2024 03:00 PM AMBULATORY - REHAB MEDICIN E [facility] Vital Signs: All taken on the encounter date This section contains inpatient and outpatient Vital Signs collected on the date of the Encounter. Date/Time Temperature Pulse Blood Pressure Respiratory Rate SP02 Pain Height Weight Body Mass Index Source Apr 09, 2024 10:46 AM 67 131/68 18 98 0 [facility] Social History: Smoking Status (Most current) and Tobacco Use (All prior to encounter date) This section includes the most current, and the historical, smoking and tobacco- related health factors from the [place] facility where the Encounter took place. Current Smoking Status This section includes the most current smoking, or tobacco-related health factor, from the [place] facility where the Encounter took place. Date/Time Current Smoking Status Comment [facility] yaron Apr 18, 2017 09:10 AM QUIT TOBACCO USE > 7 YEARS AGO [facility] Tobacco Use History This section includes a history of the smoking, or tobacco-related health factors, that were collected on or before the date of the Encounter. The data comes from the [place] facility where the Encounter took place. Date/Time Smoking Status/Tobac co Use Comment Facility Apr 18, 2016 08:29 AM QUIT TOBACCO USE > 7 YEARS AGO quit 35 yrs ago [facility] Encounter Notes: All associated encounter notes This section contains the clinical notes associated to the Encounter. Date/Time Encounter Note(s) Provider Source Apr 09, 2024 07:47 AM AUDIOLOGY NOTE: LOCAL TITLE: AUDIOLOGY HEALTH SUSTAINABILITY MANAGER STANDARD TITLE: AUDIOLOGY NOTE DATE OF NOTE: APR 09, 2024@07:47 ENTRY DATE: APR 09, 2024@07:47:51 AUTHOR: ARASELI CHOW COSIGNER: JIMMIE CANCINO URGENCY: STATUS: COMPLETED April 09, 2024 History/Background: was seen for a hearing aid follow up, unaccompanied. 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 Hearing aids: [employer] Intent miniRITE Serial Numbers: [id number] Battery size: Rechargeable Date Issued: 03/13/2024 The new earmold was coupled to the drying room operator. The Lecompte stated the fit was better but still not completely secure. Otoscopy: Non-occluding hard cerumen in the right ear. Due to the presence of cerumen, we are unable to proceed with a new ear impression at this time. The Lecompte was advised to contact sick call for cerumen removal. Plan: The Lecompte will contact the clinic post cerumen removal. He can be scheduled for a 30 min HAC/HT appointment for a new right ear impression. *The Lecompte returned to the clinic after visiting sick call to have cerumen removed from the right ear. A follow-up otoscopy revealed a clear right canal. With the Veterans verbal consent, a new right ear impression was taken today without incident. Post otoscopic inspection was clear. A new right canal lock earmold will be ordered. Upon receipt the Lecompte can be contacted to schedule a 30 min HAC/HT appointment for chicken picker. The Lecompte noted he will be away from 04/18/24-04/27/24. /rosetta/ ARASELI CHOW Audiology Health Turning Sander Operator Signed: 04/09/2024 11:55 /rosetta/ Tabatha Santa [facility] Embedded Hardware Engineer Cosigned: 04/09/2024 13:22 [facility]
== END 2024-05-15 09:51 | disposition home or self-care (01) ==
LOC: HO.PMCPRC 08:21
PROVIDERS: PCP Internal Medicine; Visit Provider Internal Medicine
DX: M47.816 Spondylosis without myelopathy or radiculopathy, lumbar region (principal)
CPT/HCPCS: 64555

== ENCOUNTER 2024-05-21 08:51 | Outpatient (AMB) | payer MEDICARE, SELFPAY ==
--- NOTE | 2024-05-21 08:55 | A.OFFVIS_ITS ---
Vital Signs 05/21/24 08:57 Height 5 ft 8 in Weight 179 lb BMI 27.2 BP 165/79 H Blood Pressure Location Lt brachial Position Sitting Respiration 16 Pulse 91 Pulse Source Pulse Oximeter Pulse Oximetry (%) 96 Oxygen Delivery Method Room Air Intake Visit Reasons: Left Sprint removal Allergies Penicillins Adverse Reaction (Verified 05/21/24 08:59) swollen Medication List - Last Reconciled 05/21/24 by Kaylin Joseph LPN amlodipine 10 mg PO DAILY atorvastatin 40 mg PO DAILY furosemide 20 mg PO DAILY omeprazole 20 mg PO DAILY oxycodone 5 mg PO BID PRN sodium chloride 1,000 mg PO TID tamsulosin 0.4 mg PO DAILY triamcinolone acetonide 0.025% 1 appl topical BID HPI HPI Left Sprint removal: Details: 74-year-old male who presents today to the office for a left Sprint removal. While in the office today, he states he did not take any pain medications for two and a half weeks and started taking them recently every couple days. He states the right side is feeling fine, but the left side is still sore after the lead replacement. Past procedures 05/15/24: Lumbar Medial Branch Nerve Stimulation Lead Replacement, SPR (Sprint) System, left L3: mild initial relief. 04/10/24: Lumbar Medial Branch Nerve Stimulation Lead Placement, SPR (Sprint) System, Bilateral L3 Medial Branches: mild initial relief. 03/27/24: Lumbar Medial Branch Nerve Stimulation Lead Placement, SPR (Sprint) System, Left L2 Medial Branch: mild initial relief. [facility] Medical History Dyspnea on exertion Osteoarthritis Erectile dysfunction Hypercholesteremia Diskitis Tubular adenoma SIAD (syndrome of inappropriate antidiuresis) Thoracic aortic aneurysm Constipation CAD (coronary artery disease) History of rib fracture Hard of hearing History of MRSA infection Back pain GERD (gastroesophageal reflux disease) Weakness Habitual snoring High cholesterol Hypertension Surgical History History of esophagogastroduodenoscopy (EGD) Hx of tonsillectomy History of total right knee replacement Hx of cataract extraction H/O colonoscopy Knee joint replacement status Social History Are you a primary healthcare analyst to a significant other at home: No Do you presently have visiting nurse or other home services: No Alcohol intake: current Alcohol intake frequency: 3 or more drinks per day Alcohol type: beer Patient Tobacco Use Status: Former Tobacco user Current occupational status: 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 Alert and oriented. Mood and affect appropriate. Follows and participates in conversation appropriately. Respiratory effort is unlabored. Able to transition from sit to stand unassisted. Ambulates with bilaterally normal heel strike and toe off. Lead insertion site is clean dry and intact. Results Reviewed Results Reviewed: No imaging is available for review. Assessment & Plan Assessment & Plan (1) Intractable back pain: Code(s): M54.9 - Dorsalgia, unspecified Category: Medical (2) Lumbar spondylosis: Code(s): M47.816 - Spondylosis without myelopathy or radiculopathy, lumbar region Category: Medical Plan His left replacement was recently replaced. It will be removed in 7 weeks from now. The right lead is scheduled for removal later this month and we will follow up then for the right lead removal as previously scheduled. Scribed for Dr. Rao by Jeny Roach medical billing assistant, on 05/21/2024.? I, Dr. Rao, have personally reviewed and agree with the information entered by the scribe. Coding Level of Care Code Est Pt Level 3 (47389) Diagnoses Intractable back pain M54.9 Lumbar spondylosis M47.816
[2024-05-21 08:57] VITALS: BP 165/79; PULSE 91; RESP 16; O2SAT 96; BMI 27.2
--- OUTSIDE RECORDS SUMMARY | 2024-05-21 23:14 | XMS_ITS | Continuity of Care Document ---
Author Name [facility] Organization [facility] Care Team Providers Care Graphite Mill Operator Name Role Phone [facility] Unavailable Unavailable Problems Combined list of problems [...] FOR 12 HOURS AFTER TAKING ORAL 01/04/2024 [id number] KISHA CLEVELAND 2023 2 [facility] SIMVASTATIN 20MG TAB TAKE ONE-HALF TABLET BY MOUTH DAILY ORAL ACTIVE DONATO MARTINEZ S 2015 [facility] Immunizations Combined list of available immunizations from the Department of Defense and Veterans Affairs facilities. Immunization Series Date Given Administered By Site Reaction Lot Number CVX Code Drug Business Agent Status Comments Source COVID-19 ([employer]), MRNA, LNP-S, PF, 30 MCG/0.3 ML DOSE 2 2020 208 complet ed PFR; [id number]; 1 [facility] COVID-19 ([employer]), MRNA, LNP-S, PF, 30 MCG/0.3 ML DOSE 1 2020 208 complet ed PFR; [id number]; 1 [facility] DTAP, UNSPECIFIED FORMULATION 2011 107 complet ed uncertain date at community PCP [facility] Results Combined list of recent chemistry, [...] Dec 05, 2023 09:34 AM Reporting Lab: [address] [address] Performing Lab: [address] [address] [facility] CREATININ E (eGFR 2020) GLOMERULAR FILTRATION RATE/1.73 SQ M.PREDICTED [VOLUME RATE/AREA] IN SERUM, PLASMA OR BLOOD BY CREATININE- BASED FORMULA (CKD-EPI 2020) >90mL/ min 60 12/04 Specimen Type: SERUM No comment entered. Ordering Provider: ANN CLEVELAND Report Released Date/Time: Dec 05, 2023 09:34 AM Reporting Lab: [facility] [address] [facility] [address] Performing Lab: [facility] [address] [facility] [address] [facility] [place] [facility] Vital Signs Combined list of inpatient and [...] [facility] [place] [place] [id number] [id number] Diagnos is: ICD-10- CM H90.3 Sensori neural hearing loss, bilater al
RICO DOUGLASS 10/29 [facility] REMOVE IMPACTED EAR WAX UNI 69973-4.63 [id number] Diagnos is: ICD-10- CM H90.A21 Snsrnrl hear loss, uni, r ear, with rstrcd hear cntra side
WINDY CLEVELAND R 12/04 [facility] OFFICE O/P EST SF 10 MIN [id number] Diagnos is: ICD-10- CM H61.21 Impacte d cerumen , right ear<br/ > WINDY CLEVELAND R 12/24 [facility] Outpatient Encounter 47671-4.63 1.12/31 [facility] HEARING AID EXAM BOTH EARS 11063-6.63 [id number] Diagnos is: ICD-10- CM H90.3 Sensori neural hearing loss, bilater al
CLIVE,BLADIMIR L 02/13 [facility] CONFORMITY EVALUATION [id number] Diagnos is: ICD-10- CM Z46.1 Encount er for fitting and adjustm ent of hearing aid<br/ > Sheree HAQUE E 03/13 [facility] HEARING AID CHECK BOTH EARS [id number] Diagnos is: ICD-10- CM Z46.1 Encount er for fitting and adjustm ent of hearing aid<br/ > CLIVE,BLADIMIR L 03/19 [facility] EAR IMPRESSION 98918-7.63 1. Diagnos is: ICD-10- CM Z46.1 Encount er for fitting and adjustm ent of hearing aid<br/ > MICHA CANCINO L 04/09 [facility] OFF/OP EST OCTOBER X REQ PHY/QHP 68372-7.63 [id number] Diagnos is: ICD-10- CM Z71.89 Other specifi ed health counselor ing<br/ > Yoshi SHERIFF 04/09 [place] [facility] [place] [facility] [place] [facility] HEARING AID REPAIR/MOD IFYING 41827-6.91 [id number] Diagnos is: ICD-10- CM Z46.1 Encount er for fitting and adjustm ent of hearing aid<br/ > SENIOR,ERIK OLE L 04/17 [facility] [place] [place] [facility] Social History Combined list of available smoking, tobacco, and other social history from Department of Defense and Veterans Affairs facilities. Social History Type Response Date Comment Source Tobacco smoking status NHIS QUIT TOBACCO USE > 7 YEARS AGO 04/18/2017 [place] [facility] [place] [facility] History of tobacco use QUIT TOBACCO USE > 7 YEARS AGO 04/18/2016 quit 35 yrs ago [place] [facility] [place] [facility]
--- OUTSIDE RECORDS SUMMARY | 2024-05-21 23:14 | XMS_ITS | Data Portability ---
Author Organization [facility] Yan s, [address] Address [address] [place] [address] Assessment No assessment recorded. Plan of Treatment [...] Diagnosis/Indication Diagnosis SNOMED-CT Code Diagnosis ICD10 Code [id number] [address] [place] [phone] 05/14/2017 08:53:48 05/14/2017 10:00:32 [id number] Kana_Erasmo Greenewv lorenr [address] [place] [phone] [id number] 06/23/2019 13:48:02 06/23/2019 15:14:27 [id number] 20995_Er[address] Green[address] [place] [phone] 10/20/2020 15:26:32 10/20/2020 16:16:34 [id number] 2100Юл[address]_Erasmo Greenew[address] [place] [phone] 0 07/22/2020 12:46:34 07/22/2020 13:52:23 Health Concerns Section Related Observation LastModified by Organization Detai ls LastModified Time None Recorded Concern Status LastModified by Organization Details LastModified Time None Recorded Advance Directives Directive None Recorded Payers Encounter Date Sequence Insurance Name Policy Number Policy Hillman Covered Member ID Hillman Member ID Guarantor Name 05/14/2017 1 [employer]: MEDICARE PPO BLUE (MEDICARE REPLACEMENT PPO) [id number] Luis Angel Scott [id number] Luis Angel Scott 06/23/2019 1 [employer]: MEDICARE PPO BLUE (MEDICARE REPLACEMENT PPO) [id number] Luis Angel Scott [id number] Luis Angel Scott 07/22/2020 1 [employer]: MEDICARE PPO BLUE (MEDICARE REPLACEMENT PPO) [id number] Luis Angel Scott [id number] Luis Angel Scott 10/20/2020 1 [employer]: MEDICARE PPO BLUE (MEDICARE REPLACEMENT PPO) [id number] Luis Angel Scott [id number] Luis Angel Scott
--- OUTSIDE RECORDS SUMMARY | 2024-05-21 23:15 | XMS_ITS | Data Portability ---
Author Organization [facility], [facility] Address [address] [place] [address] Care Team Providers Care Plate Grainer Apprentice Name Role Phone MELQUIADES JIMÉNEZ Primary Care Provider [phone] Assessment No assessment recorded. Plan of Treatment [...] Details Recorded Time Idiopathi c osteoarth ritis 301993633 Active 2015 Problem Code: M17.0; Problem Code Type: ICD-10; Status: 'A'; Not Available [facility] 10:57:05 Knee joint prosthesi s present [id number] Active 2017 Problem Code: Z96.651; Problem Code Type: ICD-10; Status: 'A'; Not Available [facility] 10:57:05 Problem Notes None recorded. Procedures Surgical History Date Name Laterality Status Provider Name and Address Organization Details Recorded Time 04/03/2024 Sports Knee 4&1 cancelled Weston Oakes PA-C [address], [place], [address], [facility] 04/03/2024 07:33:56 01/03/2024 Sports Knee 4&1 completed Weston Oakes PA-C [address], [place], [address], [facility] 01/03/2024 07:33:11 10/01/2023 Sports Knee 4&1 completed Weston Oakes PA-C [address], [place], [address], [facility] 10/01/2023 07:39:31 Imaging Results None recorded. Procedure Notes None recorded. Medical Equipment None Reported. Allergies Allergen ID Allergen Name Allergen Category Reaction Reaction Severity Criticality Documentation Date Start Date Code Code System Note Provider Name and Address Organization Details Recorded Time 04753 Medicinal product containin g penicilli n and acting as antibacte rial agent (product) medicatio n swelling Not available Not available 08/13/20232017 48535 05 SNOMED Not Available [facility] 11:39[facility]11 Medications Name Sig Start Date [...] Updated DateTime 10/01/2023 172.72 cm 25.8 kg/m2 95759.7 g PRIMO MIRZA [facility] 10/01/2023 09:49:15 Date Recorded Body height Body mass index (BMI) Body weight Provider Name and Address Organization Details Last Updated DateTime 01/03/2024 172.72 cm 25.8 kg/m2 44477.7 g ARASELI WHITNEY [facility] 01/03/2024 08:44:06 Social History None recorded. Functional Status None recorded. Mental Status None recorded. Family History Nothing Reported. Medical History No medical history recorded. Past Encounters Encounter ID Performer Location Encounter Start Date Encounter Closed Date Diagnosis/Indication Diagnosis SNOMED-CT Code Diagnosis ICD10 Code [id number] SERAFIN [facility] [address] [place] [address] 10/01/2023 09:39:57 10/22/2023 06:46:39 Osteoarthritis of left knee joint 2121512120 37695 M17.12 [id number] Weston Oakes PA-C [place] [address] [place] [address] 01/03/2024 08:31:57 01/23/2024 15:15:04 Osteoarthritis of left knee joint 2756154479 72679 M17.12 Health Concerns Section Related Observation LastModified by Organization Detai ls LastModified Time None Recorded Concern Status LastModified by Organization Details LastModified Time None Recorded Advance Directives Directive None Recorded Payers Encounter Date Sequence Insurance Name Policy Number Policy Hillman Covered Member ID Hillman Member ID Guarantor Name 10/01/2023 1 [facility]: MEDICARE PPO BLUE (MEDICARE REPLACEMENT PPO) [id number] Luis Angel Scott [id number] Luis Angel Scott 01/03/2024 1 [facility]: MEDICARE PPO BLUE (MEDICARE REPLACEMENT PPO) [id number] Luis Angel Scott [id number] Luis Angel Scott Notes Date Note [...] versus continued conservative treatment. Weston Oakes PA-C [address] [place] [address] [address], [place], [address], [facility] 10/01/2023 16:44:48 01/03/2024 text/html [...] continued conservative treatment. Weston Oakes PA-C [address] [facility] [address], [place], [address], [facility] 01/04/2024 07:25:10
== END 2024-05-21 09:27 | disposition home or self-care (01) ==
PROVIDERS: PCP Internal Medicine; Visit Provider Internal Medicine
DX: M54.9 Dorsalgia, unspecified (principal); M47.816 Spondylosis without myelopathy or radiculopathy, lumbar region
CPT/HCPCS: 99024

== ENCOUNTER → 2024-05-21 08:51 | Outpatient (BNVA) | payer MEDICARE, SELFPAY | PROVIDERS: PCP Internal Medicine; Visit Provider Internal Medicine | DX: M54.9 Dorsalgia, unspecified (principal); M47.816 Spondylosis without myelopathy or radiculopathy, lumbar region | CPT/HCPCS: 99212 ==

== ENCOUNTER 2024-06-06 08:58 | Outpatient (AMB) | payer MEDICARE, SELFPAY ==
--- NOTE | 2024-06-06 09:01 | A.OFFVIS_ITS ---
Vital Signs 06/06/24 09:03 Height 5 ft 8 in Weight 179 lb BMI 27.2 BP 156/61 H Blood Pressure Location Lt radial Position Sitting Respiration 16 Pulse 89 Pulse Source Pulse Oximeter Pulse Oximetry (%) 97 Oxygen Delivery Method Room Air Intake Visit Reasons: Right Sprint removal Allergies Penicillins Adverse Reaction (Verified 06/06/24 09:04) swollen Medication List - Last Reconciled 06/06/24 by Kaylin Joseph LPN amlodipine 10 mg PO DAILY atorvastatin 40 mg PO DAILY furosemide 20 mg PO DAILY omeprazole 20 mg PO DAILY oxycodone 5 mg PO BID PRN sodium chloride 1,000 mg PO TID tamsulosin 0.4 mg PO DAILY triamcinolone acetonide 0.025% 1 appl topical BID HPI HPI Right Sprint removal: Details: 74-year-old male who presents today to the office for a right sprint removal. He has significant pain relief. His overall pain medications requirement is down. Past procedures 05/15/24:? Lumbar Medial Branch Nerve Stimulation Lead Replacement, SPR (Sprint) System, left L3: mild initial relief.? 04/10/24: Lumbar Medial Branch Nerve Stimulation Lead Placement, SPR (Sprint) System, Bilateral L3 Medial Branches: mild initial relief. 03/27/24: Lumbar Medial Branch Nerve Stimulation Lead Placement, SPR (Sprint) System, Left L2 Medial Branch: mild initial relief. [facility] Medical History Dyspnea on exertion Osteoarthritis Erectile dysfunction Hypercholesteremia Diskitis Tubular adenoma SIAD (syndrome of inappropriate antidiuresis) Thoracic aortic aneurysm Constipation CAD (coronary artery disease) History of rib fracture Hard of hearing History of MRSA infection Back pain GERD (gastroesophageal reflux disease) Weakness Habitual snoring High cholesterol Hypertension Surgical History History of esophagogastroduodenoscopy (EGD) Hx of tonsillectomy History of total right knee replacement Hx of cataract extraction H/O colonoscopy Knee joint replacement status Social History Are you a primary customer care coordinator to a significant other at home: No Do you presently have visiting nurse or other home services: No Alcohol intake: current Alcohol intake frequency: 3 or more drinks per day Alcohol type: beer Patient Tobacco Use Status: Former Tobacco user Current occupational status: 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 Alert and oriented. Mood and affect appropriate. Follows and participates in conversation appropriately. Respiratory effort is unlabored. Able to transition from sit to stand unassisted. Ambulates with bilaterally normal heel strike and toe off. Right sided lead was removed with tip intact. Right lead insertion site was slightly inflamed. It was clean with alcohol and dressed with band-aid. Results Reviewed Results Reviewed: No imaging is available for review. Assessment & Plan Assessment & Plan (1) Intractable back pain: Code(s): M54.9 - Dorsalgia, unspecified Category: Medical (2) Lumbar spondylosis: Code(s): M47.816 - Spondylosis without myelopathy or radiculopathy, lumbar region Category: Medical (3) Mononeuropathy: Code(s): G58.9 - Mononeuropathy, unspecified Category: Medical Plan The right sided lead was removed with the tip intact in the office today. He will follow up in five weeks for removal of left sided lead removal. Scribed for Dr. Rao by Quirino Nieves, medical records assistant, on 06/06/2024. I, Dr. Rao, have personally reviewed and agree with the information entered by the scribe. Coding Level of Care Code Est Pt Level 3 (72559) Diagnoses Intractable back pain M54.9 Lumbar spondylosis M47.816 Mononeuropathy G58.9
[2024-06-06 09:03] VITALS: BP 156/61; PULSE 89; RESP 16; O2SAT 97; BMI 27.2
--- OUTSIDE RECORDS SUMMARY | 2024-06-06 09:11 | XMS_ITS | Encounter Summary ---
Author Name [facility] Organization [facility] Address [address] [place] [address] Support Name Relationship Address Phone MARK MIMS [...] PART B Jul 12, 2015 PART B [id number] RUY MIMS PATIENT MEDICARE (WNR) MEDICARE (M) PART A Mar 11, 2014 PART A [id number] RUY MIMS PATIENT Selected Encounter This section includes the information on record at [place] for the Encounter. Date/Time Encounter Type Encounter Description Reason Provider Source Mar 13, 2024 09:00 AM [facility] EVALU[facility] AUDIOLOGY ICD-10-CM Z46.1 Encounter for fitting and adjustment of hearing aid MAGAN HAQUE Cresencio Encounter Template Text not used by [place] Assessments - Encounter Diagnoses This section includes the primary and secondary diagnoses documented for the Encounter. Date/Time Primary/Secondary Diagnosis Diagnosis Name Provider Source Mar 13, 2024 09:52 AM PRIMARY Encounter for fitting and adjustment of hearing aid [facility] Mar 13, 2024 09:52 AM SECONDARY Sensorineural hearing loss, bilateral [facility] HAQUE [facility] Plan of Treatment: Future Appointments (+ 6 months) and Future Tests (+/- 45 days) The Plan of Treatment section includes future care activities for the patient from [facility] [place] [facility] This section includes future appointments and future orders which are active, pending or scheduled. Future Appointments This section includes appointments that were scheduled to occur 6 months from the date of the Encounter, up to a maximum of 20 appointments. The data comes from all [place] treatment facilities. Appointment Date/Time Appointment Type Appointme nt Facility Name Mar 19, 2024 10:00 AM [facility] Apr 09, 2024 10:00 AM [facility] Apr 09, 2024 10:30 AM [facility] Apr 17, 2024 03:00 PM AMBULATORY - REHAB MEDICIN E [facility] Social History: Smoking Status (Most current) and Tobacco Use (All prior to encounter date) This section includes the most current, and the historical, smoking and tobacco- related health factors from the [place] facility where the Encounter took place. Current Smoking Status This section includes the most current smoking, or tobacco-related health factor, from the [place] facility where the Encounter took place. Date/Time Current Smoking Status Comment [facility] Apr 18, 2017 09:10 AM QUIT TOBACCO USE > 7 YEARS AGO [facility] Tobacco Use History This section includes a history of the smoking, or tobacco-related health factors, that were collected on or before the date of the Encounter. The data comes from the [place] facility where the Encounter took place. Date/Time Smoking Status/Tobac co Use Comment Facility Apr 18, 2016 08:29 AM QUIT TOBACCO USE > 7 YEARS AGO quit 35 yrs ago [facility] Encounter Notes: All associated encounter notes This section contains the clinical notes associated to the Encounter. Date/Time Encounter Note(s) Provider Source Mar 13, 2024 07:47 AM AUDIOLOGY E & M NO TE: [facility] TITLE: AUDIOLOGY CLINIC STANDARD TITLE: AUDIOLOGY E & M NOTE DATE OF NOTE: MAR 13, 2024@07:47 ENTRY DATE: MAR 13, 2024@07:47:15 AUTHOR: MAGAN HAQUE COSIGNER: URGENCY: STATUS: COMPLETED Diagnosis: bilateral sensorineural hearing loss Hearing Aid Fitting: SUBJECTIVE (S): The Kirksey was seen for hearing aid fitting and issuance. S/He had previously been evaluated and found to exhibit significant hearing loss for which amplification was recommended. How does the patient/client best learn? verbal instruction, demonstration Does the patient/client have any cultural and evangelical beliefs, emotional barriers, physical or cognitive limitations, and communication barriers which may impact his/her ability to learn? no Desire and motivation to learn? Good OBJECTIVE (O): Physical fit of earmolds/receivers and domes/hearing aids was good. Kirksey verified comfort. Verification of an appropriate acoustic response was obtained using Real Ear measurements (speech mapping) and NAL-NL2 targets. The reported good subjective benefit as well. Feedback manager golf was run. Hearing aids were found to be meeting targets adequately and MPO was not exceeding estimated UCL. Settings stored in AMBAR. ASSESSMENT (A): The following device(s) was/were issued: Make: Oticon Model: Intent1 miniRITE R Serial Numbers: [id number] Battery size: RECHARGEABLE Trial Period ends: 08-26-24 Domes/wax guards, etc.: proAffinity Edgex Earmold Information: clear, lucite, canal lock Leguillon Debeader size/power: 3/85 detect Program Settings (VC, Programs, [...] and reports confidence/understanding in all items reviewed. Kirksey was given written reference materials today. The was informed of and agreed to [place] policy on hearing aid issuance: Users are responsible for the maintenance and security of their devices. Determination of need to replace a hearing aid is made by the [place] safety risk lead. Hearing aids will not be replaced in [...] RE Not Applicable NA /rosetta/ Arthur [place], [facility]-A STAFF BUILDING PRINCIPAL Signed: 03/13/2024 09:56 MAGAN HAQUE [facility]
--- OUTSIDE RECORDS SUMMARY | 2024-06-06 09:11 | XMS_ITS | Continuity of Care Document ---
Author Organization [facility] Address [address] [place] [address]- Care Team Providers Care Vinyl Top Installer Name Role Phone Shabana Netwon MD Primary Care Physician En[place] [facility] Date(s): 04/24/24 - 05/24/24 [facility] [address] [place] [address] Drive [address] [place] [address]- Encounter Type: Triage Allergies, Adverse Reactions, Alerts Substance Criticality Severity Reaction Reaction Severity Status penicillin 1 Active lisinopril Nausea Active 1Rash Immunizations Given and Recorded Vaccine Date Status Refusal Reason zoster vaccine, inactivated 09/11/23 Recorded zoster vaccine, inactivated 03/23/23 Recorded SARS-CoV-2(COVID-19)mRNA-LNP vac(wcc255) 03/27/23 Recorded influenza virus vaccine, inactivated 03/15/23 Robby rded SARS-CoV-2 (COVID-19) mRNA BNT-162b2 vac 03/11/21 Recorded pneumococcal 23-valent vaccine 05/18/17 Given pneumococcal 13-valent vaccine 05/16/16 Given tetanus/diphtheria/pertussis, acel(Tdap) 10/27/15 Given Tet/Diphth/Acel, Pertussis (oldterm) 12/22/08 Give n Tetanus Toxoid Vaccine (oldterm) 07/12/98 Given Medications acetaminophen 325 mg oral tablet 650 mg, By Mouth, 4 times a day, Refills 0, Maintenance, 01/31/23 9:17:00 AM EDT, Partial fill upon patient request if the prescription is for a schedule II opioid drug. Start Date: 01/31/23 Status: Ordered Repeat number: 1 amLODIPine 10 mg oral tablet 1 tablet, By Mouth, Daily, # 90 tablet, 1 Refills, Maintenance, 03/15/24 10:32:00 PM EDT, [facility] #[id number], 175, cm, 02/14/24 8:48:00 EDT, Height, 68, kg, 03/16/23 6:34:00 EDT, Dry Weight Start Date: 03/15/24 Status: Ordered Quantity: 90.0 Unit: tablet Repeat number: 1 aspirin 81 mg oral delayed release tablet 81 mg, By Mouth, Daily, Refills 0, Maintenance, 01/31/23 9:10:00 AM EDT, Partial fill upon patient request if the prescription is for a schedule II opioid drug. Start Date: 01/31/23 Status: Ordered Repeat number: 1 atorvastatin 40 mg oral tablet 1 tablet = 40 mg, By Mouth, Daily, # 90 tablet, 3 Refills, Maintenance, 06/01/23 11:13:00 AM EST, Tablet, [facility] # [id number], Partial fill upon patient request if the prescription is for a schedule II opioid drug., 175, cm, 06/01/23 10:47:00 EST, Height, 68, kg, 03/16/23 6:34:00 EDT, Dry Weight Start Date: 06/01/23 Stop Date: 05/26/24 Status: Ordered Quantity: 90.0 Unit: tablet Repeat number: 4 furosemide 20 mg oral tablet 10 mg, 0.5, tablet, By Mouth, Daily, # 30 tablet, Refills 0, Maintenance, 08/06/23 1:25:00 PM EST, Partial fill upon patient request if the prescription is for a schedule II opioid drug. Start Date: 08/06/23 Status: Ordered Quantity: 30.0 Unit: tablet Repeat number: 1 multivitamin with minerals Multiple Vitamins with Minerals oral tablet 1 tablet, By Mouth, Daily, # 30 tablet, 0 Refills, Maintenance, 01/31/23 8:59:00 AM EDT, Tablet Start Date: 01/31/23 Status: Ordered Quantity: 30.0 Unit: tablet Repeat number: 1 Nebulizer/Compressor See Instructions, # 1 each, Refills 11, Tot. Refills 11, Maintenance, E0570 Nebulizer A7003 Neb Disp Set A7014 Neb non-Disp Filter A7005 Neb Non-Disp set A7015 Aerosol Mask A7013 Neb Disp Filter length of need lifetime 99 months for home use, 04/18/23 12:15:00 PM EST, Supply Start Date: 04/18/23 Status: Ordered Quantity: 1.0 Unit: each Repeat number: 12 omeprazole 20 mg oral enteric coated capsule See Instructions, TAKE ONE CAPSULE BY MOUTH ONCE DAILY, # 90 capsule, 1 Refills, Maintenance, 04/10/24 3:29:00 PM EDT, [facility] #[id number], 175, cm, 02/14/24 8:48:00 EDT, Height, 68, kg, 03/16/23 6:34:00 EDT, Dry Weight Start Date: 04/10/24 Status: Ordered Quantity: 90.0 Unit: capsule Repeat number: 1 oxyCODONE 5 mg oral tablet 5 mg, 1, tablet, By Mouth, 2 times a day, CSA 28 Day, # 56 tablet, Refills 0, Tot. Refills 0, Maintenance, 05/15/24 4:59:00 PM EST, Route to Pharmacy Electronically, [facility] # [id number], Partial fill upon patient request if the prescription is for a schedule II opioid drug., 175, cm, 02/14/24 8:48:00 EDT, Height, 68, kg, 03/16/23 6:34:00 EDT, Dry Weight Start Date: 05/15/24 Stop Date: 06/12/24 Status: Ordered Quantity: 56.0 Unit: tablet Repeat number: 1 Indication: Low back pain, unspecified sodium chloride 1 gm oral tablet See Instructions, 1 gm daily, 0 Refills, Maintenance, 08/06/23 1:26:00 PM EST, Partial fill upon patient request if the prescription is for a schedule II opioid drug. Start Date: 08/06/23 Status: Ordered Repeat number: 1 tamsulosin 0.4 mg oral capsule See Instructions, TAKE ONE CAPSULE BY MOUTH ONCE DAILY 30 MINUTES AFTER THE SAME MEAL FOR MANAGEMENT OF URINARY RETENTION. FOLLOW UP WITH PCP AND CALL [facility] TO SCHEDULE OUTPATIENT APPT FOR FURTHER MGMT AND REFILLS, # 30 capsule, Refills 5, Maintenance, 03/17/24 12:55:00 PM EDT, Instructions Replace Required Details, Route to Pharmacy Electronically, [facility] #[id number], 175, cm, 02/14/24 8:48:00 EDT, Height, 68, kg, 03/16/23 6:34:00 EDT, Dry Weight Start Date: 03/17/24 Status: Ordered Quantity: 30.0 Unit: capsule Repeat number: 1 Valium 5 mg oral tablet 5 mg, 1, tablet, By Mouth, Once, Take one hour before MRI. Do not drive or mix with alcohol., # 1 tablet, Refills 0, Tot. Refills 0, Soft Stop, 12/20/23 4:34:00 PM EDT, Route to Pharmacy Electronically, [facility] # [id number], Partial fill upon patient request if the prescription is for a schedule IIopioid drug., 175, cm, 10/29/23 14:42:00 EDT, Height, 68, kg, 03/16/23 6:34:00 EDT, Dry Weight Start Date: 12/20/23 Status: Ordered Quantity: 1.0 Unit: tablet Repeat number: 1 Vitamin B12 1000 mcg oral tablet 1 tablet = 1,000 mcg, By Mouth, Daily, # 30 tablet, 0 Refills, Maintenance, 01/31/23 8:59:00 AM EDT,Tablet, Partial fill upon patient request if the prescription is for a schedule II opioid drug. Start Date: 01/31/23 Status: Ordered Quantity: 30.0 Unit: tablet Repeat number: 1 Problem List Condition Confirmation Course Effective Dates Status Health Status Informant Borderline anemia Confirmed Active Thoracic aortic aneurysm Confirmed Active Intractable back pain Confirmed Active Coronary artery calcification seen on CT scan Confirmed Active Chronic back pain Confirmed Active Constipation Confirmed Active Coronary artery disease Confirmed Active Diskitis Confirmed Active Dyshidrotic eczema hands Confirmed Active Dyspnea on exertion Confirmed Active Erectile dysfunction Confirmed Active Esophagitis Confirmed 05/09/12 Active Family history of prostate cancer brother Confirmed Active Hypercholesterolemia Confirmed Active Hypertension Confirmed Active Moderate drinker of alcohol Confirmed Active Nasal congestion Confirmed Active Osteoarthritis of right knee Confirmed Active 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 Active Tubular adenoma 1 Confirmed 05/09/12 Active 1tubular adenoma in 2018, will need repeat screening colonoscopy in 2022 Social History Social History Type Response Smoking Status Former smoker, quit more than 30 days ago; Other: quit 1979; entered on: 03/13/23 Sex Sex Representation Male (finding) Patient Care team information Care Team Personnel Name: Fadumo Aguilera RN Position: S RN Member Role: Primary Care Nurse Name: Mookie Jacobson MD Position: [facility] Renal MD Member Role: Lifetime Consulting Physician Address: [address] [place] [address] [address] [facility] [address]- [place] [employer]: Name: Nahed Crain RN Position: [facility] SN RN Member Role: Primary Care Nurse Name: Thalia Murcia RN Position: [facility] RN Member Role: Primary Care Nurse Name: Shabana Newton MD Position: [facility] Physician - Primary Care Member Role: PCP Address: [address] [place] [address] [place] [address]- [place] Tele[employer]: Name: Giorgi Schuster RN Position: [facility] RN Member Role: Primary Care Nurse Name: Daniel Dumont DO Position: [facility] Renal MD Member Role: Lifetime Consulting Physician Address: [address] [facility] [address] [facility] [place] [address]- [place] [employer]: Name: Tamra Perez RN Position: [facility] RN Member Role: Primary Care Nurse Name: Ruchi Irwin RN Position: [facility] RN Member Role: Primary Care Nurse Name: Bobby Quintanilla RN Position: [facility] RN Member Role: Primary Care Nurse Name: Kg Blake MD Position: [facility] Outreach Member Role: Lifetime Consulting Physician Address: [address] [facility] [place] [address]- [place] Tele[employer]: Name: Katiuska De La Rosa LPN Position: [facility] RN Member Role: Primary Care Nurse Name: Shon Fleming MD Position: [facility] Renal MD Member Role: Lifetime Consulting Physician Address: [address] [facility] [place] [address]- [place] [employer]: Care Team Related Persons Name: STAR MIMS Insurance Providers Guarantor name: MARYAM MIMS Health Plan Information #: 1 Payer: NA Member Number: NA Policy Number: NA Group Number: NA
--- OUTSIDE RECORDS SUMMARY | 2024-06-06 09:11 | XMS_ITS | Encounter Summary ---
Author Name [facility] [place] Organization [place] Address [address] [place] [id number] Support Name Relationship Address Phone MARK MIMS Emergency Contact Unknown [phone] Insurance Providers: All historical and current Section [...] PART B Jul 12, 2015 PART B [id number] 26A RUY MIMS PATIENT MEDICARE (WNR) MEDICARE (M) PART A Mar 11, 2014 PART A [id number] 26A RUY MIMS PATIENT Selected Encounter This section includes the information on record at [place] for the Encounter. Date/Time Encounter Type Encounter Description Reason Provider Source Feb 14, 2024 09:00 AM HEARING AID EXAM BOTH EARS AUDIOLOGY ICD-10-CM H90.3 Sensorineural hearing loss, bilateral ELENA DUFFY Cresencio Encounter Template Text not used by [place] Assessments - Encounter Diagnoses This section includes the primary and secondary diagnoses documented for the Encounter. Date/Time Primary/Secondary Diagnosis Diagnosis Name Provider Source Feb 14, 2024 09:27 AM PRIMARY Sensorineural hearing loss, bilateral [facility]FF[facility] Plan of Treatment: Future Appointments (+ 6 months) and Future Tests (+/- 45 days) The Plan of Treatment section includes future care activities for the patient from all [place] treatmentfacilities. This section includes future appointments and future orders which are active, pending or scheduled. Future Appointments This section includes appointments that were scheduled to occur 6 months from the date of the Encounter, up to a maximum of 20 appointments. The data comes from all [place] treatment facilities. Appointment Date/Time Appointment Type Appointme nt Facility Name Mar 13, 2024 09:00 AM [facility] Mar 19, 2024 10:00 AM AMBULAT[facility] - [facility] Apr 09, 2024 10:00 AM [facility] Apr 09, 2024 10:30 AM [facility] Apr 17, 2024 03:00 PM AMBULATORY - REHAB MEDICIN E [facility] Social History: Smoking Status (Most current) and Tobacco Use (All prior to encounter date) This section includes the most current, and the historical, smoking and tobacco- related health factors from the [place] facility where the Encounter took place. Current Smoking Status This section includes the most current smoking, or tobacco-related health factor, from the [place] facility where the Encounter took place. Date/Time Current Smoking Status Comment [facility] Apr 18, 2017 09:10 AM QUIT TOBACCO USE > 7 YEARS AGO [facility] Tobacco Use History This section includes a history of the smoking, or tobacco-related health factors, that were collected on or before the date of the Encounter. The data comes from the [place] facility where the Encounter took place. Date/Time Smoking Status/Tobac co Use Comment Facility Apr 18, 2016 08:29 AM QUIT TOBACCO USE > 7 YEARS AGO quit 35 yrs ago [facility] Encounter Notes: All associated encounter notes This [...] URGENCY: STATUS: COMPLETED AUDIOLOGY CLINIC Has ADDENDA [place] was seen February 14, 2024 for hearing [...] 03/13/24 at 9am in Clinic B. /rosetta/ ELEAN Spangler, [facility] CHIEF, AUDIOLOGY/FREIGHT BOOKER Signed: 02/14/2024 09:36 03/06/2024 ADDENDUM STATUS: COMPLETED Hearing aids received and certified, upcoming appointment scheduled on 03/13/2024. /rosetta/ ARASELI CHOW Audiology Health Pharmacy Grad Intern Signed: 03/06/2024 07:44 ELENA DUFFY CNTRL [facility]
--- OUTSIDE RECORDS SUMMARY | 2024-06-06 09:11 | XMS_ITS | Encounter Summary ---
Author Name [facility] [place] Address [address] [place] [id number] Support Name Relationship Address Phone MARK MIMS Emergency Contact Unknown [phone] Insurance Providers: All historical and current Section [...] PART B Jul 12, 2015 PART B [id number] 26A RUY MIMS PATIENT MEDICARE (WNR) MEDICARE (M) PART A Mar 11, 2014 PART A [id number] 26A RUY MIMS PATIENT Selected Encounter This section includes the information on record at [place] for the Encounter. 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 Date/Time Primary/Secondary Diagnosis Diagnosis Name Provider Source Dec 05, 2023 03:53 PM PRIMARY Snsrnrl hear loss, uni, r ear, with rstrcd hear cntra side RAINA GEORGES [place] [facility] [place] [facility] Dec 05, 2023 03:53 PM SECONDARY Tinnitus, bilateral RAINA GEORGES [facility] Plan of Treatment: Future Appointments (+ 6 months) and Future Tests (+/- 45 days) The Plan of Treatment section includes future care activities for the patient from all [place] [facility]. This section includes future appointments and future orders which are active, pending or scheduled. Future Appointments This section includes appointments that were scheduled to occur 6 months from the date of the Encounter, up to a maximum of 20 appointments. The data comes from all [place] treatment facilities. Appointment Date/Time Appointment Type Appointme nt Facility Name Dec 25, 2023 08:00 AM AMBULATORY - MEDICINE [place] [facility] [facility] [place] [facility] Jan 01, 2024 11:00 AM AMBULATORY - MEDICINE [place] C [facility] [facility] [place] [facility] Feb 14, 2024 09:00 AM AMBULATORY - REHAB MEDICIN E [place] [facility] [place] [facility] Mar 13, 2024 09:00 AM AMBULATORY - REHAB MEDICIN E [place] [facility] [place] [facility] Mar 19, 2024 10:00 AM [facility]UL[facility] [place] [facility] Apr 09, 2024 10:00 AM AMBULATORY - REHAB MEDICIN E [place] [facility] [place] [facility] Apr 09, 2024 10:30 AM AMBULATORY - MEDICINE [place] C [facility] [facility] [place] [facility] Apr 17, 2024 03:00 PM AMBULATORY - [facility] Lab Results: +/- 30 days of the encounter This section includes the Chemistry and Hematology Lab Results on record with [place] for the patient. Radiology Reports and Pathology Reports are provided separately, in subsequent sections. Lab Results This section contains the Chemistry/Hematology Results that were resulted 30 days before or 30 daysafter the date of the Encounter. Date/Time Source Result Type Result - Unit Interpretation Reference Range Comment Dec 05, 2023 09:39 AM [facility] CREATININE (eGFR 2020) Specimen Type: SERUM No comment entered. Ordering Provider: SANGEETA GEORGES Report Released Date/Time: Dec 05, 2023 09:34 AM Reporting Lab: [facility] [address] [address] Performing Lab: [facility] [address] [id number] CREATININE, Serum 0.77 mg/dL 0.50-1.40 eGFR(CKD-EPI 2020) >90 mL/min >60 Vital Signs: All taken on the encounter date This section contains inpatient and outpatient Vital Signs collected on the date of the Encounter. Date/Time Temperature Pulse Blood Pressure Respiratory Rate SP02 Pain Height Weight Body Mass Index Source Dec 05, 2023 09:10 AM 98 104 158/83 18 94 0 166.4 25 [facility] Social History: Smoking Status (Most current) and Tobacco Use (All prior to encounter date) This section includes the most current, and the historical, smoking and tobacco- related health factors from the [place] facility where the Encounter took place. Current Smoking Status This section includes the most current smoking, or tobacco-related health factor, from the [place] facility where the Encounter took place. Date/Time Current Smoking Status Comment [facility] Apr 18, 2017 09:10 AM QUIT TOBACCO USE > 7 YEARS AGO [facility] Tobacco Use History This section includes a history of the smoking, or tobacco-related health factors, that were collected on or before the date of the Encounter. The data comes from the [place] facility where the Encounter took place. Date/Time Smoking Status/Tobac co Use Comment Facility Apr 18, 2016 08:29 AM QUIT TOBACCO USE > 7 YEARS AGO quit 35 yrs ago [facility] Encounter Notes: All associated encounter notes [...] he has any questions. MRI of the [facility] 01-01-2024 Findings: The 7th and 8th cranial [...] y/o FORMER smoker WHITE MALE, [place] from PERIOD OF [...] of ear surgery. He was in the [place] and had noise exposure by wearing a [...] PROCEDURE NOTE - PERFORMED THIS VISIT CPT 93674 Cerumen removal, unilateral or bialteral Informed consent [...] this VA (local) and dispensed from another [place] or [facility]D facility (remote) as well as [...] Remote Allergy/ADR Data available for this patient [place] [facility] [place] [facility] No Known Allergies Med [facility] ([facility] INCLUDED IN THIS LIST: Alphabetical [...] the patient into personal health records (i.e. [employer]) are NOT included in this list. Non-VA medications documented outside this [place], remote inpatient orders (regardless of status) and [...] standard clinical care, and in accordance with [facility] policy. Patient information was shared with the PDMP [place]. Prescription(s) filled outside the VA in the last 90 days are noted. However, they do not raise significant safety concerns and do not influence the treatment plan at this time. Oxycodone has been Rx, I am Rx ativan for different purpose /es/ Raina Georges MD Otolaryngology Signed: 12/05/2023 09:56 RAINA GEORGES [place] [facility] [place] [facility] Dec 05, 2023 09:42 AM OTOLARYNGOLOGY CONSULT: LOCAL TITLE: CONSULT REPORT/OTOLARYNGOLOGY STANDARD TITLE: OTOLARYNGOLOGY CONSULT DATE OF NOTE: DEC 05, 2023@09:42 ENTRY DATE: DEC 05, 2023@09:42:43 AUTHOR: RAINA GEORGES EXP COSIGNER: URGENCY: STATUS: COMPLETED CONSULT REPORT/OTOLARYNGOLOGY Has ADDENDA CONSULT REQUESTED FROM AUDIOLOGY DEC 05, 2023 MARYAM MIMS is a 73 y/o FORMER smoker WHITE MALE, previously in [place] FROM Feb TO Aug from PERIOD OF [...] of ear surgery. He was in the [place] and had noise exposure by wearing a [...] PROCEDURE NOTE - PERFORMED THIS VISIT CPT 86540 Cerumen removal, unilateral or bialteral Informed consent [...] this VA (local) and dispensed from another [place] or [facility] facility (remote) as well as inpatient orders [...] Remote Allergy/ADR Data available for this patient [place] [facility] [place] [facility] No Known Allergies Med [facility] ([facility] INCLUDED IN THIS LIST: Alphabetical list of active outpatient prescriptions dispensed from this [place] (local) and dispensed from another VA or [...] the patient into personal health records (i.e. [employer]) are NOT included in this list. Non-VA medications documented outside this [place], remote inpatient orders (regardless of status) and [...] has any questions. MRI of the [facility] 01-01-2024 Findings: The 7th and 8th [...] AWAITING SIGNATURE * HAN BELTRAN JACQUELYN R [place] [facility]
--- OUTSIDE RECORDS SUMMARY | 2024-06-06 09:11 | XMS_ITS ---
Author Name [place] Organization [place] Address [address] [place] [id number] Support Name Relationship Address Phone MARK MIMS [...] PART B Jul 12, 2015 PART B [id number] 26A RUY MIMS PATIENT MEDICARE (WNR) MEDICARE (M) PART A Mar 11, 2014 PART A [id number] 26A RUY MIMS PATIENT Selected Encounter This section includes the information on record at [place] for the Encounter. Date/Time Encounter Type Encounter Description Reason Provider Source October 30, 2023 08:00 AM TYMPANOMETRY AUDIOLOGY ICD-10-CM H90.3 Sensorineural hearing loss, bilateral DOUGLASS,KIMBERL Y DARIEN IHE Encounter Template Text not used by [place] Assessments - Encounter Diagnoses This section includes the primary and secondary diagnoses documented for the Encounter. Date/Time Primary/Secondary Diagnosis Diagnosis Name Provider Source October 30, 2023 09:50 AM PRIMARY Sensorineural hearing loss, bilateral DOUGLASS,KIMBERL Y DARIEN [place] [facility] [place] [facility] October 30, 2023 09:50 AM SECONDARY Tinnitus, bilateral DOUGLASS,KIMBERL Y DARIEN [place] [facility] [place] [facility] Plan of Treatment: Future Appointments (+ 6 months) and Future Tests (+/- 45 days) The Plan of Treatment section includes future care activities for the patient from all [place] [facility]. This section includes future appointments and future orders which are active, pending or scheduled. Future Appointments This section includes appointments that were scheduled to occur 6 months from the date of the Encounter, up to a maximum of 20 appointments. The data comes from all [place] treatment facilities. Appointment Date/Time Appointment Type Appointme nt Facility Name Dec 05, 2023 09:00 AM AMBULATORY - MEDICINE [place] [facility] Dec 25, 2023 08:00 AM AMBULATORY - MEDICINE [place] [facility] Jan 01, 2024 11:00 AM AMBULATORY - MEDICINE [place] [facility] Feb 14, 2024 09:00 AM AMBULATORY - REHAB MEDICIN E [place] [facility] [place] [facility] Mar 13, 2024 09:00 AM AMBULATORY - REHAB MEDICIN E [place] [facility] [place] [facility] Mar 19, 2024 10:00 AM AMBULATORY - REHAB MEDICIN E [place] [facility] [place] [facility] Apr 09, 2024 10:00 AM AMBULATORY - REHAB MEDICIN E [place] [facility] [place] [facility] Apr 09, 2024 10:30 AM AMBULATORY - MEDICINE [place] [facility] Apr 17, 2024 03:00 PM AMBULATORY - REHAB MEDICIN E [place] [facility] [place] [facility] Social History: Smoking Status (Most current) and Tobacco Use (All prior to encounter date) This section includes the most current, and the historical, smoking and tobacco- related health factors from the [place] facility where the Encounter took place. Current Smoking Status This section includes the most current smoking, or tobacco-related health factor, from the [place] facility where the Encounter took place. Date/Time Current Smoking Status Comment [facility] Apr 18, 2017 09:10 AM QUIT TOBACCO USE > 7 YEARS AGO [facility] Tobacco Use History This section includes a history of the smoking, or tobacco-related health factors, that were collected on or before the date of the Encounter. The data comes from the [place] facility where the Encounter took place. Date/Time Smoking Status/Tobac co Use Comment Facility Apr 18, 2016 08:29 AM QUIT TOBACCO USE > 7 YEARS AGO quit 35 yrs ago [facility] Encounter Notes: All associated encounter [...] Loss, Bilateral APPOINTMENT TYPE: Hearing Re-Evaluation BACKGROUND/HISTORY: [place] was seen 10/30/23 for a hearing re-evaluation appointment, unaccompanied. [place] reports longstanding hearing difficulties, right ear worse. [...] of vertigo or a significant otologic history. [place] is positive for noise exposure (headsets) and [...] Not Applicable NA Suicide Screen: C-SSRS Screening Golden-Suicide Severity Rating Scale (C-SSRS Screener) 1. Over [...] to other questions. 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
--- OUTSIDE RECORDS SUMMARY | 2024-06-06 09:11 | XMS_ITS ---
Author Name [place] Address [address] [place] [id number] Support Name Relationship Address Phone MARK MIMS Emergency Contact Unknown [phone] Insurance Providers: All historical and current Section [...] PART B Jul 12, 2015 PART B [id number] 26A RUY MIMS PATIENT MEDICARE (WNR) MEDICARE (M) PART A Mar 11, 2014 PART A [id number] 26A RUY MIMS PATIENT Selected Encounter This section includes the information on record at [place] for the Encounter. Date/Time Encounter Type Encounter Description Reason Pro vider Source Jan 01, 2024 12:00 AM Outpatient Encounter COMMUNITY CARE CONSULT IHE Encounter Template Text not used by [place] Plan of Treatment: Future Appointments (+ 6 months) and Future Tests (+/- 45 days) The Plan of Treatment section includes future care activities for the patient from all [place] treatmentfacilities. This section includes future appointments and future orders which are active, pending or scheduled. Future Appointments This section includes appointments that were scheduled to occur 6 months from the date of the Encounter, up to a maximum of 20 appointments. The data comes from all [place] treatment facilities. Appointment Date/Time Appointment Type Appointme nt Facility Name Feb 14, 2024 09:00 AM [facility]UL[facility] Mar 13, 2024 09:00 AM AMBULATORY - [place] MEDICIN [place] [facility] Mar 19, 2024 10:00 AM AMBULATORY - [facility] MEDIC[facility] [place] [facility] Apr 09, 2024 10:00 AM AMBULATORY - REHAB MEDICIN E [place] [facility] [facility] Apr 09, 2024 10:30 AM AMBULATORY - MEDICINE [facility]N [facility] Apr 17, 2024 03:00 PM AMBULAT[facility] - [facility] Lab Results: +/- 30 days of the encounter This section includes the Chemistry and Hematology Lab Results on record with [place] for the patient. Radiology Reports and Pathology Reports are provided separately, in subsequent sections. Lab Results This section contains the Chemistry/Hematology Results that were resulted 30 days before or 30 daysafter the date of the Encounter. Date/Time Source Result Type Result - Unit Interpretation Reference Range Comment Dec 05, 2023 09:39 AM [facility] CREATININE (eGFR 2020) Specimen Type: SERUM No comment entered. Ordering Provider: SANGEETA [place] Report Released Date/Time: Dec 05, 2023 09:34 AM Reporting Lab: [facility] [address] [facility] [address] Performing Lab: [address] [address] CREATININE, Serum 0.77 mg/dL 0.50-1.40 eGFR(CKD-EPI 2020) >90 mL/min >60 Social History: Smoking Status (Most current) and Tobacco Use (All prior to encounter date) This section includes the most current, and the historical, smoking and tobacco- related health factors from the [place] facility where the Encounter took place. Current Smoking Status This section includes the most current smoking, or tobacco-related health factor, from the [place] facility where the Encounter took place. Date/Time Current Smoking Status Comment Brian savage Apr 18, 2017 09:10 AM QUIT TOBACCO USE > 7 YEARS AGO [facility] Tobacco Use History This section includes a history of the smoking, or tobacco-related health factors, that were collected on or before the date of the Encounter. The data comes from the [place] facility where the Encounter took place. Date/Time Smoking Status/Tobac co Use Comment Facility Apr 18, 2016 08:29 AM QUIT TOBACCO USE > 7 YEARS AGO quit 35 yrs ago [facility] Encounter Notes: All associated encounter notes [...] REQUIRED Electronically Filed: 01/24/2024 by: RAMIRO JOHNSON [facility]
--- OUTSIDE RECORDS SUMMARY | 2024-06-06 09:11 | XMS_ITS | Continuity of Care Document ---
Author Name [facility] Organization [facility] Care Team Providers Care Subway Guard Name Role Phone [facility] Unavailable Unavailable Problems Combined list of problems [...] FOR 12 HOURS AFTER TAKING ORAL 01/04/2024 [id number] KISHA CLEVELAND 2023 2 [facility] SIMVASTATIN 20MG TAB TAKE ONE-HALF TABLET BY MOUTH DAILY ORAL ACTIVE DONATO MARTINEZ S 2015 [facility] Immunizations Combined list of available immunizations from the Department of Defense and Veterans Affairs facilities. Immunization Series Date Given Administered By Site Reaction Lot Number CVX Code Drug Audiovisual Production Specialist Status Comments Source COVID-19 ([place]), MRNA, LNP-S, PF, 30 MCG/0.3 ML DOSE 2 2020 208 complet ed PFR; [id number]; 1 [facility] COVID-19 ([place]), MRNA, LNP-S, PF, 30 MCG/0.3 ML DOSE 1 2020 208 complet ed PFR; [id number]; 1 [facility] DTAP, UNSPECIFIED FORMULATION 2011 107 complet ed uncertain date at community PCP [facility] Results Combined list of recent chemistry, hematology [...] Dec 05, 2023 09:34 AM Reporting Lab: [address] [address] Performing Lab: [address] [address] [facility] CREATININ E (eGFR 2020) GLOMERULAR FILTRATION RATE/1.73 SQ M.PREDICTED [VOLUME RATE/AREA] IN SERUM, PLASMA OR BLOOD BY CREATININE- BASED FORMULA (CKD-EPI 2020) >90mL/ min 60 12/04 Specimen Type: SERUM No comment entered. Ordering Provider: ANN CLEVELAND Report Released Date/Time: Dec 05, 2023 09:34 AM Reporting Lab: [facility] [place] [facility] [address] [facility] [address] Performing Lab: [facility] [address] [facility] [address] [facility] [facility] Vital Signs Combined list of inpatient [...] [facility] [facility] [place] [id number] Diagnos is: ICD-10- CM H90.3 Sensori neural hearing loss, bilater al
RICO DOUGLASS 10/29 [facility] REMOVE IMPACTED EAR WAX UNI [id number] Diagnos is: ICD-10- CM H90.A21 Snsrnrl hear loss, uni, r ear, with rstrcd hear cntra side
WINDY CLEVELAND R 12/04 [facility] OFFICE O/P EST SF 10 MIN [id number] Diagnos is: ICD-10- CM H61.21 Impacte d cerumen , right ear<br/ > WINDY CLEVELAND R 12/24 [facility] Outpatient Encounter [id number] 1.12/31 [facility] HEARING AID EXAM BOTH EARS [id number] Diagnos is: ICD-10- CM H90.3 Sensori neural hearing loss, bilater al
CLIVE,BLADIMIR L 02/13 [facility] CONFORMITY EVALUATION [id number] Diagnos is: ICD-10- CM Z46.1 Encount er for fitting and adjustm ent of hearing aid<br/ > Sheree HAQUE E 03/13 [facility] HEARING AID CHECK BOTH EARS [id number] Diagnos is: ICD-10- CM Z46.1 Encount er for fitting and adjustm ent of hearing aid<br/ > CLIVE,BLADIMIR L 03/19 [facility] EAR IMPRESSION 68492-4.63 1. Diagnos is: ICD-10- CM Z46.1 Encount er for fitting and adjustm ent of hearing aid<br/ > MICHA CANCINO L 04/09 [facility] OFF/OP EST OCTOBER X REQ PHY/QHP [id number] Diagnos is: ICD-10- CM Z71.89 Other specifi ed primary substance abuse counselor ing<br/ > Yoshi SHERIFF 04/09 [place] [facility] [place] [facility] [place] [facility] HEARING AID REPAIR/MOD IFYING 12400-1.21 [id number] Diagnos is: ICD-10- CM Z46.1 Encount er for fitting and adjustm ent of hearing aid<br/ > SENIOR,ERIK OLE L 04/17 [facility] Social History Combined list of available smoking, tobacco, and other social history from Department of Defense and Veterans Affairs facilities. Social History Type Response Date Comment Source Tobacco smoking status NHIS QUIT TOBACCO USE > 7 YEARS AGO 04/18/2017 [place] [facility] [place] [facility] History of tobacco use QUIT TOBACCO USE > 7 YEARS AGO 04/18/2016 quit 35 yrs ago [place] [facility] [place] [facility]
--- OUTSIDE RECORDS SUMMARY | 2024-06-06 09:11 | XMS_ITS ---
Author Name [facility] [place] [facility] [place] [facility] [place] Address [address] [place] [address] Support Name Relationship Address Phone MARK MIMS [...] PART B Jul 12, 2015 PART B [id number] 26A RUY MIMS PATIENT MEDICARE (WNR) MEDICARE (M) PART A Mar 11, 2014 PART A [id number] 26A RUY MIMS PATIENT Selected Encounter This section includes the information on record at [place] for the Encounter. Date/Time Encounter Type Encounter Description Reason Provider Source Dec 25, 2023 08:00 AM OFFICE O/P EST SF 10 MIN OTOLARYNGOLOGY/ENT ICD-10-CM H61.21 Impacted cerumen, right ear RAINA CLEVELAND [facility] Encounter Template Text not used by [place] Assessments - Encounter Diagnoses This section includes the primary and secondary diagnoses documented for the Encounter. Date/Time Primary/Secondary Diagnosis Diagnosis Name Provider Source Dec 25, 2023 08:51 AM PRIMARY Impacted cerumen, right ear SANGEETA CLEVELAND [facility] [place] [facility] Dec 25, 2023 08:51 AM SECONDARY Sensorineural hearing loss, bilateral SANGEETA CLEVELAND [place] [facility] [place] [facility] Plan of Treatment: Future Appointments (+ 6 months) and Future Tests (+/- 45 days) The Plan of Treatment section includes future care activities for the patient from all [place] [facility]. This section includes future appointments and future [...] - MEDICINE [place] [facility] [place] [facility] Feb 14, 2024 09:00 AM AMBULATORY - REHAB MEDICIN E [facility] [place] [facility] Mar 13, 2024 09:00 AM AMBULATORY - REHAB MEDICIN E [facility] [place] [facility] Mar 19, 2024 10:00 AM AMBULATORY - REHAB MEDICIN E [facility] [place] [facility] Apr 09, 2024 10:00 AM AMBULATORY - REHAB MEDICIN E [facility] [place] [facility] Apr 09, 2024 10:30 AM AMBULATORY - MEDICINE [place] [facility] [place] [facility] Apr 17, 2024 03:00 PM AMBULATORY - REHAB MEDICIN E [facility] [place] [facility] Lab Results: +/- 30 days [...] Range Comment Dec 05, 2023 09:39 [facility] CREATININE (eGFR 2020) Specimen Type: SERUM No comment entered. Ordering Provider: SANGEETA CLEVELAND Report Released Date/Time: Dec 05, 2023 09:34 AM Reporting [facility] [address] [facility] [address] Performing Lab: [address] [address] CREATININE, Serum 0.77 mg/dL 0.50-1.40 eGFR(CKD-EPI 2020) >90 mL/min >60 Vital Signs: All taken on the encounter date This section contains inpatient and outpatient Vital Signs collected on the date of the Encounter. Date/Time Temperature Pulse Blood Pressure Respiratory Rate SP02 Pain Height Weight Body Mass Index Source Dec 25, 2023 08:08 AM 97.2 101 156/75 18 96 0 166 25 [facility] Social History: Smoking Status (Most current) [...] took place. Date/Time Current Smoking Status Comment [facility] Apr 18, 2017 09:10 AM QUIT TOBACCO USE > 7 YEARS AGO [facility] Tobacco Use History This section includes a history of the smoking, or tobacco-related health factors, that were collected on or before the date of the Encounter. The data comes from the [place] facility where the Encounter took place. Date/Time Smoking Status/Tobac co Use Comment Facility Apr 18, 2016 08:29 AM QUIT TOBACCO USE > 7 YEARS AGO quit 35 yrs ago [facility] Encounter Notes: All associated encounter [...] y/o FORMER smoker WHITE MALE, previously in [facility] FROM Feb TO Aug from PERIOD OF [...] of ear surgery. He was in the [place] and had noise exposure by wearing a [...] PROCEDURE NOTE - PERFORMED THIS VISIT CPT 24783 Cerumen removal, unilateral or bialteral Informed consent [...] this [place] (local) and dispensed from another [place] or [facility] facility (remote) as well as inpatient orders [...] Remote Allergy/ADR Data available for this patient [facility] No Known [facility]ergies [facility] INCLUDED IN THIS LIST: Alphabetical list of active outpatient prescriptions dispensed from this [facility] (local) and dispensed from another [place] or [facility] facility (remote) as well as inpatient orders (local pending and active), local clinic medications, locally documented non-VA medications, and local prescriptions that have or been discontinued in the past 90 days. Non-VA Meds Last Documented On: Apr 18, 2016 NOTE The display of VA prescriptions dispensed from another [place] or [facility] facility (remote) is limited to active outpatient prescription entries matched to National Drug File at the originating site and may not include some items such as investigational drugs, compounds, etc. NOT INCLUDED IN THIS LIST: Medications self-entered by the patient into personal health records (i.e. doo) are NOT included in this list. Non-VA [...] DRIVE FOR 12 HOURS AFTER TAKING Rx# [id number] Last Released: 12/10/23 Qty/Days Supply: 07/12 Rx Expiration Date: 01/04/24 Refills Remainin Indication: FOR ANXIETY Non-VA SIMVASTATIN 20MG TAB TAKE ONE-HALF TABLET BY MOUTH DAILY SUPPLIES /rosetta/ Raina Cleveland MD Otolaryngology Signed: 12/25/2023 08:51 RAINA CLEVELAND [facility]
--- OUTSIDE RECORDS SUMMARY | 2024-06-06 09:12 | XMS_ITS | Encounter Summary ---
Author Name [facility] [place] [facility] [place] Address [address] [place] [id number] Support Name Relationship Address Phone MARK MIMS [...] PART B Jul 12, 2015 PART B [id number] 26A RUY MIMS PATIENT MEDICARE (WNR) MEDICARE (M) PART A Mar 11, 2014 PART A [id number] 26A RUY MIMS PATIENT Selected Encounter This section includes the information on record at [place] for the Encounter. Date/Time Encounter Type Encounter Description Reason Provider Source Apr 09, 2024 10:30 AM OFF/OP EST OCTOBER X REQ PHY/Q PRIMARY CARE/MEDICINE ICD-10-CM Z71.89 Other specified counseling [facility] SHERIFF [facility] Encounter Template Text not used by [place] Assessments - Encounter Diagnoses This section includes the primary and secondary diagnoses documented for the Encounter. Date/Time Primary/Secondary Diagnosis Diagnosis Name Provider Source Apr 09, 2024 10:51 AM PRIMARY Other specified counseling [facility] Plan of Treatment: Future Appointments (+ 6 months) and Future Tests (+/- 45 days) The Plan of Treatment section includes future care activities for the patient from all [place] treatmentfacilities. This section includes future appointments and future orders which are active, pending or scheduled. Future Appointments This section includes appointments that were scheduled to occur 6 months from the date of the Encounter, up to a maximum of 20 appointments. The data comes from all [place] treatment facilities. Appointment Date/Time Appointment Type Appointme nt Facility Name Apr 17, 2024 03:00 PM AMBULATORY - RE[facility]AB MEDICIN E [facility] Vital Signs: All taken on the encounter date This section contains inpatient and outpatient Vital Signs collected on the date of the Encounter. Date/Time Temperature Pulse Blood Pressure Respiratory Rate SP02 Pain Height Weight Body Mass Index Source Apr 09, 2024 10:46 AM 67 131/68 18 98 0 [facility] Social History: Smoking Status (Most current) and Tobacco Use (All prior to encounter date) This section includes the most current, and the historical, smoking and tobacco- related health factors from the [place] facility where the Encounter took place. Current Smoking Status This section includes the most current smoking, or tobacco-related health factor, from the [place] facility where the Encounter took place. Date/Time Current Smoking Status Comment [facility] Apr 18, 2017 09:10 AM QUIT TOBACCO USE > 7 YEARS AGO [facility] Tobacco Use History This section includes a history of the smoking, or tobacco-related health factors, that were collected on or before the date of the Encounter. The data comes from the [place] facility where the Encounter took place. Date/Time Smoking Status/Tobac co Use Comment Facility Apr 18, 2016 08:29 AM QUIT TOBACCO USE > 7 YEARS AGO quit 35 yrs ago [facility] Encounter Notes: All associated encounter notes [...] STATUS: COMPLETED F Bilateral Ear Lavage D&A: Cross Timbers sent down from Audiology due to needing an ear cleaning prior to having a hearing aid fitting. Bilateral ears were lavaged without any incidence. Minimal cerumen removed from both ears. TM is present and intact bilaterally, no redness present. Cross [place]bers tolerated flushing well. No dizziness or pain per . R: Cross [place]bers to return to Audiology for hearing aide impression. Blood Pressure: 131/68 (04/09/2024 10:46) Pain: 0 (04/09/2024 10:46) Patient Height: 69 in [175.3 cm] (04/18/2016 08:19) Patient Weight: 166 lb [75.30 kg] (12/25/2023 08:08) Pulse: 67 (04/09/2024 10:46) Respiration: 18 (04/09/2024 10:46) Temperature: 97.2 F [36.2 C] (12/25/2023 08:08) /rosetta/ JORDANA SHERIFF Registered Nurse Signed: 04/09/2024 10:52 JORDANA SHERIFF [place] [facility]
--- OUTSIDE RECORDS SUMMARY | 2024-06-06 09:12 | XMS_ITS | Data Portability ---
Author Organization [facility] Yan s, [address] [place] [address] Assessment No assessment recorded. Plan of Treatment [...] Diagnosis/Indication Diagnosis SNOMED-CT Code Diagnosis ICD10 Code [id number]_Erasmo [address] [place] [phone] 05/14/2017 08:53:48 05/14/2017 10:00:32 [id number] Kana_Erasmo Greenect lorenr [address] [place] [address] [phone] 06/23/2019 13:48:02 06/23/2019 15:14:27 [id number] 20995_Erasmo [address] [place] [phone] 0 10/20/2020 15:26:32 10/20/2020 16:16:34 [id number] 2100Юлия_Erasmo Greenect [address] [place] [address] [phone] 07/22/2020 12:46:34 07/22/2020 13:52:23 Health Concerns Section Related Observation LastModified by Organization Detai ls LastModified Time None Recorded Concern Status LastModified by Organization Details LastModified Time None Recorded Advance Directives Directive None Recorded Payers Encounter Date Sequence Insurance Name Policy Number Policy Hillman Covered Member ID Hillman Member ID Guarantor Name 05/14/2017 1 [facility]: MEDICARE PPO BLUE (MEDICARE REPLACEMENT PPO) [id number] Luis Angel Scott [id number] Luis Angel Scott 06/23/2019 1 [facility]: MEDICARE PPO BLUE (MEDICARE REPLACEMENT PPO) [id number] Luis Angel Scott [id number] Luis Angel Scott 07/22/2020 1 [facility]: MEDICARE PPO BLUE (MEDICARE REPLACEMENT PPO) [id number] Luis Angel Scott [id number] Luis Angel Scott 10/20/2020 1 [facility]: MEDICARE PPO BLUE (MEDICARE REPLACEMENT PPO) [id number] Luis Angel Scott [id number] Luis Angel Scott
--- OUTSIDE RECORDS SUMMARY | 2024-06-06 09:12 | XMS_ITS ---
Author Name [facility] [place] [facility] Address [address] [place] [address] Support Name Relationship Address Phone MARK MIMS [...] PART B Jul 12, 2015 PART B [id number] 26A RUY MIMS PATIENT MEDICARE (WNR) MEDICARE (M) PART A Mar 11, 2014 PART A [id number] 26A RUY MIMS PATIENT Selected Encounter This section includes the information on record at [place] for the Encounter. Date/Time Encounter Type Encounter Description Reason Provider Source Apr 09, 2024 10:00 AM EAR IMPRESSION AUDIOLOGY ICD-10-CM Z46.1 Encounter for fitting and adjustment of hearing aid JIMMIE CANCINO Encounter Template Text not used by [place] Assessments - Encounter Diagnoses This section includes the primary and secondary diagnoses documented for the Encounter. Date/Time Primary/Secondary Diagnosis Diagnosis Name Provider Source Apr 09, 2024 10:15 AM PRIMARY Encounter for fitting and adjustment of hearing aid SIMONE CHOW [facility] [place] [place] [facility] Apr 09, 2024 10:15 AM SECONDARY Sensorineural hearing loss, bilateral [facility] Apr 09, 2024 10:15 AM SECONDARY Snsrnrl hear loss, uni, r ear, with rstrcd hear cntra side SIMONE CHOW [facility] Plan of Treatment: Future Appointments (+ 6 months) and Future Tests (+/- 45 days) The Plan of Treatment section includes future care activities for the patient from all [place] treatmentfacilities. This section includes future appointments and future orders which are active, pending or scheduled. Future Appointments This section includes appointments that were scheduled to occur 6 months from the date of the Encounter, up to a maximum of 20 appointments. The data comes from all [place] treatment facilities. Appointment Date/Time Appointment Type Appointme nt Facility Name Apr 17, 2024 03:00 PM AMBULATORY - REHAB MEDICIN E [facility] Vital Signs: All taken on the encounter date This section contains inpatient and outpatient Vital Signs collected on the date of the Encounter. Date/Time Temperature Pulse Blood Pressure Respiratory Rate SP02 Pain Height Weight Body Mass Index Source Apr 09, 2024 10:46 AM 67 131/68 18 98 0 [facility] Social History: Smoking Status (Most current) and Tobacco Use (All prior to encounter date) This section includes the most current, and the historical, smoking and tobacco- related health factors from the [place] facility where the Encounter took place. Current Smoking Status This section includes the most current smoking, or tobacco-related health factor, from the [place] facility where the Encounter took place. Date/Time Current Smoking Status Comment [facility] yaron Apr 18, 2017 09:10 AM QUIT TOBACCO USE > 7 YEARS AGO [facility] Tobacco Use History This section includes a history of the smoking, or tobacco-related health factors, that were collected on or before the date of the Encounter. The data comes from the [place] facility where the Encounter took place. Date/Time Smoking Status/Tobac co Use Comment Facility Apr 18, 2016 08:29 AM QUIT TOBACCO USE > 7 YEARS AGO quit 35 yrs ago [facility] Encounter Notes: All associated encounter notes This section contains the clinical notes associated to the Encounter. Date/Time Encounter Note(s) Provider Source Apr 09, 2024 07:47 AM AUDIOLOGY NOTE: LOCAL TITLE: AUDIOLOGY [facility] STANDARD TITLE: AUDIOLOGY NOTE DATE OF NOTE: APR 09, 2024@07:47 ENTRY DATE: APR 09, 2024@07:47:51 AUTHOR: ARASELI CHOW COSIGNER: JIMMIE CANCINO URGENCY: STATUS: COMPLETED April 09, 2024 History/Background: was seen for a hearing aid follow up, unaccompanied. 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 Hearing aids: [employer] Intent miniRITE Serial Numbers: [id number] Battery size: Rechargeable Date Issued: 03/13/2024 The new earmold was coupled to the wooden shade hardware installer. The Britton stated the fit was better but still not completely secure. Otoscopy: Non-occluding hard cerumen in the right ear. Due to the presence of cerumen, we are unable to proceed with a new ear impression at this time. The Britton was advised to contact sick call for cerumen removal. Plan: The Britton will contact the clinic post cerumen removal. He can be scheduled for a 30 min HAC/HT appointment for a new right ear impression. *The Britton returned to the clinic after visiting sick call to have cerumen removed from the right ear. A follow-up otoscopy revealed a clear right canal. With the Veterans verbal consent, a new right ear impression was taken today without incident. Post otoscopic inspection was clear. A new right canal lock earmold will be ordered. Upon receipt the Britton can be contacted to schedule a 30 min HAC/HT appointment for merchandise pickup/receiving associate. The Britton noted he will be away from 04/18/24-04/27/24. /rosetta/ ARASELI CHOW Audiology Health Family Educator Signed: 04/09/2024 11:55 /rosetta/ Tabatha Santa [facility] Skills Trainer Cosigned: 04/09/2024 13:22 [facility]I [facility]OW [facility]
--- OUTSIDE RECORDS SUMMARY | 2024-06-06 09:12 | XMS_ITS ---
Author Name [facility] [place] Organization [facility] [place] Address [address] [place] [id number] Support Name Relationship Address Phone MARK MIMS [...] PART B Jul 12, 2015 PART B [id number] RUY MIMS PATIENT MEDICARE (WNR) MEDICARE (M) PART A Mar 11, 2014 PART A [id number] RUY MIMS PATIENT Selected Encounter This section includes the information on record at [place] for the Encounter. Date/Time Encounter Type Encounter Description Reason Provider Source Mar 19, 2024 10:00 AM HEARING AID CHECK BOTH EARS AUDIOLOGY ICD-10-CM Z46.1 Encounter for fitting and adjustment of hearing aid ELENA DUFFY Encounter Template Text not used by [place] Assessments - Encounter Diagnoses This section includes the primary and secondary diagnoses documented for the Encounter. Date/Time Primary/Secondary Diagnosis Diagnosis Name Provider Source Mar 19, 2024 10:13 AM PRIMARY Encounter for fitting and adjustment of hearing aid SIMONE CHOW [place] [facility] [place] [facility] Mar 19, 2024 10:13 AM SECONDARY Sensorineural hearing loss, bilateral SIMONE CHOW [place] [facility] [facility] Mar 19, 2024 10:13 AM SECONDARY Snsrnrl hear loss, uni, r ear, with rstrcd hear cntra side NIITHEASIMONE [facility] Plan of Treatment: Future Appointments (+ 6 months) and Future Tests (+/- 45 days) The Plan of Treatment section includes future care activities for the patient from all [place] treatmentfacilities. This section includes future appointments and future orders which are active, pending or scheduled. Future Appointments This section includes appointments that were scheduled to occur 6 months from the date of the Encounter, up to a maximum of 20 appointments. The data comes from all [place] treatment facilities. Appointment Date/Time Appointment Type Appointme nt Facility Name Apr 09, 2024 10:00 AM [facility] Apr 09, 2024 10:30 AM [facility] Apr 17, 2024 03:00 PM AMBULATORY - REHAB MEDICIN E [facility] Social History: Smoking Status (Most current) and Tobacco Use (All prior to encounter date) This section includes the most current, and the historical, smoking and tobacco- related health factors from the [place] facility where the Encounter took place. Current Smoking Status This section includes the most current smoking, or tobacco-related health factor, from the [place] facility where the Encounter took place. Date/Time Current Smoking Status Comment [facility] Apr 18, 2017 09:10 AM QUIT TOBACCO USE > 7 YEARS AGO [facility] Tobacco Use History This section includes a history of the smoking, or tobacco-related health factors, that were collected on or before the date of the Encounter. The data comes from the [place] facility where the Encounter took place. Date/Time Smoking Status/Tobac co Use Comment Facility Apr 18, 2016 08:29 AM QUIT TOBACCO USE > 7 YEARS AGO quit 35 yrs ago [facility] Encounter Notes: All associated encounter notes This section contains the clinical notes associated to the Encounter. Date/Time Encounter Note(s) Provider Source Mar 19, 2024 07:45 AM AUDIOLOGY NOTE: LOCAL TITLE: AUDIOLOGY HEALTH FINAL INSPECTION SUPERVISOR STANDARD TITLE: AUDIOLOGY NOTE DATE OF NOTE: MAR 19, 2024@07:45 ENTRY DATE: MAR 19, 2024@07:45:39 AUTHOR: ARASELI CHOW COSIGNER: ELENA DUFFY URGENCY: STATUS: COMPLETED AUDIOLOGY HEALTH FINAL INSPECTION SUPERVISOR Has ADDENDA March 19, 2024 History/Background: Elmira was seen for a hearing aid follow [...] Otoscopy: Non-occluding hard cerumen right ear. Advised Elmira to contact pcp for cerumen removal. Plan: Upon receipt of the right earmold, can be contacted to schedule 30 min HAC/HT appointment for slat pickler. /rosetta/ ARASELI CHOW Audiology Health Environmental Service Aide Signed: 03/19/2024 10:18 /love Spangler, CCC-A CHIEF, AUDIOLOGY/WET PAN OPERATOR Cosigned: 03/19/2024 10:29 04/02/2024 ADDENDUM STATUS: COMPLETED Right earmold received, however, the canal is still very short. Spoke with Juve at [employer] Customer service to request the earmold be built with a longer canal. He will push new order for a longer canal through. /rosetta/ ARASELI CHOW Audiology Health Environmental Service Aide Signed: 04/02/2024 14:51 /love Spangler CCC-A CHIEF, AUDIOLOGY/WET PAN OPERATOR Cosigned: 04/02/2024 15:05 [facility]
--- OUTSIDE RECORDS SUMMARY | 2024-06-06 09:12 | XMS_ITS | Encounter Summary ---
Author Name [facility] [place] Organization [facility] [place] Address [address] [place] [address] Support Name Relationship Address Phone MARK MIMS [...] PART B Jul 12, 2015 PART B [id number] 26A RUY MIMS PATIENT MEDICARE (WNR) MEDICARE (M) PART A Mar 11, 2014 PART A [id number] [id number] RUY MIMS PATIENT Selected Encounter This section includes the information on record at [place] for the Encounter. Date/Time Encounter Type Encounter Description Reason Provider Source Apr 17, 2024 03:00 PM HEARING AID REPAIR/MODIFYIN G AUDIOLOGY ICD-10-CM Z46.1 Encounter for fitting and adjustment of hearing aid JESSI MUNGUIA Encounter Template Text not used by [place] Assessments - Encounter Diagnoses This section includes the primary and secondary diagnoses documented for the Encounter. Date/Time Primary/Secondary Diagnosis Diagnosis Name Provider Source Apr 17, 2024 03:39 PM PRIMARY Encounter for fitting and adjustment of hearing aid SIMONE CHOW [place] [facility] [facility] Apr 17, 2024 03:39 PM SECONDARY Sensorineural hearing loss, bilateral SIMONE CHOW [place] [facility] [facility] Apr 17, 2024 03:39 PM SECONDARY Snsrnrl hear loss, uni, r ear, with rstrcd hear cntra side SIMONE CHOW [facility] Social History: Smoking Status (Most current) [...] QUIT TOBACCO USE > 7 YEARS AGO [facility] Tobacco Use History This section includes a history of the smoking, or tobacco-related health factors, that were collected on or before the date of the Encounter. The data comes from the [place] facility where the Encounter took place. Date/Time Smoking Status/Tobac co Use Comment Facility Apr 18, 2016 08:29 AM QUIT TOBACCO USE > 7 YEARS AGO quit 35 yrs ago [facility] Encounter Notes: All associated encounter notes This section contains the clinical notes associated to the Encounter. Date/Time Encounter Note(s) Provider Source Apr 17, 2024 02:43 PM AUDIOLOGY NOTE: LOCAL TITLE: AUDIOLOGY HEALTH HYDRAULIC MINER BLASTING STANDARD TITLE: AUDIOLOGY NOTE DATE OF NOTE: APR 17, 2024@14:43 ENTRY DATE: APR 17, 2024@14:43:15 AUTHOR: ARASELI CHOW COSIGNER: JESSI MUNGUIA URGENCY: STATUS: COMPLETED April 17, 2024 History/Background: was seen for a hearing aid follow up, unaccompanied. The presented today to sheepskin pickler his new right canal lock earmold. The Whick reported the current earmold fit reasonably well, [...] The original earmold was provided to the Whick in a bag to be kept as backup. Plan: The will follow up as needed. /rosetta/ ARASELI CHOW Audiology Health Densitometrist Signed: 04/17/2024 15:40 /rosetta/ LOYDA MARTINEZ, [facility]-A STAFF METAL FABRICATOR Cosigned: 04/17/2024 15:43 ARASELI CHOW [place] [facility]L [facility]
--- OUTSIDE RECORDS SUMMARY | 2024-06-06 09:12 | XMS_ITS | Data Portability ---
Author Organization [facility] Address [address] [place] [address] Care Team Providers Care Bass Viol Repairer Name Role Phone MELQUIADES JIMÉNEZ Primary Care [...] Details Recorded Time Idiopathi c osteoarth ritis 306038714 Active 2015 Problem Code: M17.0; Problem Code Type: ICD-10; Status: 'A'; Not Available [facility] 10:57:05 Knee joint prosthesi s present 582391229136 Active 2017 Problem Code: Z96.651; Problem Code Type: ICD-10; Status: 'A'; Not Available [facility] 10:57:05 Problem Notes None recorded. Procedures Surgical History Date Name Laterality Status Provider Name and Address Organization Details Recorded Time 04/03/2024 Sports Knee 4&1 cancelled Weston Oakes PA-C [address], [place], [address], [facility] 04/03/2024 07:33:56 01/03/2024 Sports Knee 4&1 completed Weston Oakes PA-C [address], [place], [address], [facility] 01/03/2024 07:33:11 10/01/2023 Sports Knee 4&1 completed Weston Oakes PA-C [address], [place], [address], [facility] 10/01/2023 07:39:31 Imaging Results None recorded. Procedure Notes None recorded. Medical Equipment None Reported. Allergies Allergen ID Allergen Name Allergen Category Reaction Reaction Severity Criticality Documentation Date Start Date Code Code System Note Provider Name and Address Organization Details Recorded Time 86806 Medicinal product containin g penicilli n and acting as antibacte rial agent (product) medicatio n swelling Not available Not available 08/13/20232017 69523 05 SNOMED Not Available [facility] 11:39:11 Medications Name Sig Start Date Stop [...] Updated DateTime 10/01/2023 172.72 cm 25.8 kg/m2 16705.7 g PRIMO MIRZA [facility] 10/01/2023 09:49:15 Date Recorded Body height Body mass index (BMI) Body weight Provider Name and Address Organization Details Last Updated DateTime 01/03/2024 172.72 cm 25.8 kg/m2 87182.7 g ARASELI WHITNEY [facility] 01/03/2024 08:44:06 Social History None recorded. Functional Status None recorded. Mental Status None recorded. Family History Nothing Reported. Medical History No medical history recorded. Past Encounters Encounter ID Performer Location Encounter Start Date Encounter Closed Date Diagnosis/Indication Diagnosis SNOMED-CT Code Diagnosis ICD10 Code [id number] SERAFIN Momin [address] [place] [address] 10/01/2023 09:39:57 10/22/2023 06:46:39 Osteoarthritis of left knee joint 7289063407 01622 M17.12 [id number] Weston Oakes PA-C [place] [address] [place] [address] 01/03/2024 08:31:57 01/23/2024 15:15:04 Osteoarthritis of left knee joint 7828526286 99177 M17.12 Health Concerns Section Related Observation LastModified by Organization Detai ls LastModified Time None Recorded Concern Status LastModified by Organization Details LastModified Time None Recorded Advance Directives Directive None Recorded Payers Encounter Date Sequence Insurance Name Policy Number Policy Hillman Covered Member ID Hillman Member ID Guarantor Name 10/01/2023 1 [facility]: MEDICARE PPO BLUE (MEDICARE REPLACEMENT PPO) [id number] Luis Angel Scott [id number] Luis Angel Scott 01/03/2024 1 [facility]: MEDICARE PPO BLUE (MEDICARE REPLACEMENT PPO) [id number] Luis Angel Scott [id number] Luis Angel Scott Notes Date Note [...] versus continued conservative treatment. Weston Oakes PA-C [address] [place] [address] [address], [place], [address], [facility] 10/01/2023 16:44:48 01/03/2024 text/html [...] continued conservative treatment. Weston Oakes PA-C [address] [facility] [address], [place], [address], [facility] 01/04/2024 07:25:10
== END 2024-06-06 10:16 | disposition home or self-care (01) ==
PROVIDERS: PCP Internal Medicine; Visit Provider Internal Medicine
DX: M54.9 Dorsalgia, unspecified (principal); M47.816 Spondylosis without myelopathy or radiculopathy, lumbar region; G58.9 Mononeuropathy, unspecified
CPT/HCPCS: 99213

== ENCOUNTER → 2024-06-06 08:58 | Outpatient (BNVA) | payer MEDICARE, OTHER, SELFPAY | PROVIDERS: PCP Internal Medicine; Visit Provider Internal Medicine | DX: M54.9 Dorsalgia, unspecified (principal); M47.816 Spondylosis without myelopathy or radiculopathy, lumbar region; G58.9 Mononeuropathy, unspecified; Z45.42 Encounter for adjustment and management of neurostimulator | CPT/HCPCS: 99212 ==

== ENCOUNTER 2024-07-09 08:56 | Outpatient (AMB) | payer MEDICARE, SELFPAY ==
--- NOTE | 2024-07-09 09:00 | A.OFFVIS_ITS ---
Vital Signs 07/09/24 09:01 Height 5 ft 8 in Weight 176 lb BMI 26.8 BP 143/84 H Blood Pressure Location Lt brachial Position Sitting Respiration 16 Pulse 98 Pulse Source Pulse Oximeter Pulse Oximetry (%) 96 Oxygen Delivery Method Room Air Intake Visit Reasons: Left Sprint Removal Retail Marketing Coordinator Required: No Allergies Penicillins Adverse Reaction (Verified 07/09/24 09:02) swollen Medication List - Last Reconciled 07/09/24 by Kaylin Joseph, JONNATHAN amlodipine 10 mg PO DAILY atorvastatin 40 mg PO DAILY furosemide 20 mg PO DAILY omeprazole 20 mg PO DAILY oxycodone 5 mg PO BID PRN sodium chloride 1,000 mg PO TID tamsulosin 0.4 mg PO DAILY triamcinolone acetonide 0.025% 1 appl topical BID HPI HPI Left Sprint Removal: Details: History of Present Illness The patient is a 74-year-old male presenting with temporary medial patch nerve stimulator removal. The patient has a history of lumbar pain, which had previously required management with oxycodone at a dose of 2 tablets per day. A temporary lumbar medial branch stimulator was placed, and it is noted that since the installation of the device, the patient's oxycodone usage has been reduced to 1 tablet per day. The patient's pain is predominantly nocturnal, and the temporary stimulator has provided significant relief, such that at one point, while both stimulators were in place, the patient was able to discontinue oxycodone completely. The limitation of the current temporary stimulator is its propensity for dislodgment, resulting in the need for replacement. A future injectable version is in development, which may alleviate this issue. Pain Description - Onset: Pain primarily nocturnal. - Quality: Feels fine currently, worsens at night. - Location: Lumbar region. - Relieving Factors: Temporary nerve stimulator and reduction of oxycodone. - Aggravating Factors: Lack of effective stimulator and gravity-related dislodgment of device. Physical Exam - Musculoskeletal- Quick back examination performed; no abnormalities noted. Leads removed intact Pain Management - Affect: Pain is primarily nocturnal but is manageable. - Analgesia: Reduced oxycodone from 2 tablets to 1 tablet daily, due to effective temporary nerve stimulator. - Adverse Effects: No adverse effects of current pain management mentioned. - Activities of Daily Living: No significant interference noted, planning travel to [facility]. - Aberrant Drug-Related Behaviors: No such behaviors reported. PFSH Medical History Dyspnea on exertion Osteoarthritis Erectile dysfunction Hypercholesteremia Diskitis Tubular adenoma SIAD (syndrome of inappropriate antidiuresis) Thoracic aortic aneurysm Constipation CAD (coronary artery disease) History of rib fracture Hard of hearing History of MRSA infection Back pain GERD (gastroesophageal reflux disease) Weakness Habitual snoring High cholesterol Hypertension Surgical History History of esophagogastroduodenoscopy (EGD) Hx of tonsillectomy History of total right knee replacement Hx of cataract extraction H/O colonoscopy Knee joint replacement status Social History Are you a primary women's health care nurse practitioner to a significant other at home: No Do you presently have visiting nurse or other home services: No Alcohol intake: current Alcohol intake frequency: 3 or more drinks per day Alcohol type: beer Patient Tobacco Use Status: Former Tobacco user Current occupational status: 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 Physical Exam Vital Signs: Last Vital Signs Pulse 98 07/09/24 09:01 Resp 16 07/09/24 09:01 BP 143/84 H 07/09/24 09:01 Pulse Ox 96 07/09/24 09:01 Oxygen Delivery Method Room Air 07/09/24 09:01 BMI result Body Mass Index 26.8 Assessment & Plan Assessment & Plan (1) Mononeuropathy: Code(s): 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 - Patient instructed to contact the clinic if symptoms worsen for further in tervention or potential device replacement. - Discussion of a future injectable version of the stimulator as a potential long-term solution. Patient was informed and verbally consented to the use of an ambient scribe for clinic note documentation during this visit. Discussion Notes I have informed the patient that based on the success of the temporary stimulator, the reduction in oxycodone usage is promising. I explained the possibility of future stimulator upgrades that may eliminate dislodging problems by using an injectable design. The potential for extended management with fewer side effects makes this a hopeful development for continued pain management. We discussed that Luis Angel is free to travel and enjoy daily activities, including upcoming trips, but to report any significant changes in symptoms. Patient Instructions - Continue to monitor pain levels and medication use. - Contact the clinic if pain levels increase or if additional support is required. - Stay informed about advances in stimulator technologies that may provide longer-term relief without the current device's limitations. Coding Level of Care Code Est Pt Level 3 (50182) Diagnoses Mononeuropathy G58.9 Intractable back pain M54.9 Lumbar spondylosis M47.816
[2024-07-09 09:01] VITALS: BP 143/84; PULSE 98; RESP 16; O2SAT 96; BMI 26.8
--- OUTSIDE RECORDS SUMMARY | 2024-07-09 10:05 | XMS_ITS | Encounter Summary ---
Author Organization [facility], Address [address] [place] [address] Phone Care Team Providers Care Plan Examiner Name Role Phone uLly Newton MD Primary Care Provider [phone] Encounter Details Date Type Department Care Team (Late st Contact Info) Description 07/13/2023 Orders Only [facility] [address] [place] [address] Daniel Dumont DO [address] [place] [address] Hyponatremia Social History Tobacco Use Types Packs/Day Years Used Date Smoking Tobacco: Never Assessed Sex and Gender Information Value Date Recorded Sex Assigned at Male 02/13/2023 8:13 AM EDT Legal Sex Male 8:13 AM EDT Gender Identity Male 02/13/2023 8:13 AM EDT Sexual Orientation Not on file documented as of this encounter Plan of Treatment Upcoming Encounters Date Type Department Care Team (Late st Contact Info) Description 11/19/2024 1:30 PM EDT Office Visit [facility] [address] [place] [address] Daniel Dumont DO [address] [place] [address] documented as of this encounter Visit Diagnoses Diagnosis Hyponatremia documented in this encounter Care Teams Plan Examiner Relationship Specialty Start Date End Date Luly Newton MD [address] [place] [address] [address] [place] [address] PCP - General Internal Medicine 02/13/23 documented as of this encounter
--- OUTSIDE RECORDS SUMMARY | 2024-07-09 10:06 | XMS_ITS | Encounter Summary ---
Author Organization [facility], Address [address] [place] [address] Phone Care Team Providers Care Electronics Lead Name Role Phone Luly Newton MD Primary Care Provider [phone] Encounter Details Date Type Department Care Team (Late st Contact Info) Description 12/28/2023 Orders Only [facility] [address] [place] [address] Daniel Dumont DO [address] [place] [address] Hyponatremia Social History Tobacco Use [...] Visit [facility] [address] [place] [address] Daniel Dumont DO [address] [place] [address] documented as of this encounter Visit Diagnoses Diagnosis Hyponatremia documented in this encounter Care Teams Electronics Lead Relationship Specialty Start Date End Date Luly Newton MD [address] [place] [address] [address] [place] [address] PCP - General Internal Medicine 02/13/23 documented as of this encounter
--- OUTSIDE RECORDS SUMMARY | 2024-07-09 10:06 | XMS_ITS | Encounter Summary ---
Author Organization [facility] [place], Address [address] [place] [address] Phone Care Team Providers Care Utility Driver Name Role Phone Luly Newton MD Primary Care Provider [phone] Encounter Details Date Type Department Care Team (Late st Contact Info) Description 11/30/2023 Orders Only [facility] [address] [place] [address] Daniel Dumont DO [address] [place] [address] Hyponatremia Social History Tobacco Use [...] Visit [facility] [address] [place] [address] Daniel Dumont DO [address] [place] [address] documented as of this encounter Visit Diagnoses Diagnosis Hyponatremia documented in this encounter Care Teams Utility Driver Relationship Specialty Start Date End Date Luly Newton MD [address] [place] [address] [address] [place] [address] PCP - General Internal Medicine 02/13/23 documented as of this encounter
--- OUTSIDE RECORDS SUMMARY | 2024-07-09 10:06 | XMS_ITS | Encounter Summary ---
Author Organization [facility] [place], Address [address] [place] [address] Phone Care Team Providers Care Men'S Custom Hair Piece Consultant Name Role Phone Luly Newton MD Primary Care Provider [phone] Encounter Details Date Type Department Care Team (Late st Contact Info) Description 08/10/2023 Orders Only [facility] [address] [place] [address] Daniel Dumont DO [address] [place] [address] Hyponatremia Social History Tobacco Use [...] Visit [facility] [address] [place] [address] Daniel Dumont DO [address] [place] [address] Scheduled Orders Name Type Priority Associated Diagnoses Orde r Schedule Renal Function Panel Lab Routine Hyponatremia Expected: 08/17/2023, Expires: 09/16/2024 documented as of this encounter Procedures Procedure Name Priority Date/Time Associated Diagnosis Comments RP10+2AC (HC) Routine 08/20/2023 1:38 PM EDT documented in this encounter Results * (ABNORMAL) RP10+2AC (08/20/2023 1:38 PM EDT) Glucose 130(H) 70 - 99 mg/dL [facility] Uric Acid 3.0(L) 3.8 - 8.4 mg/dL [facility] Comment:Therapeutic target f or gout patients: <6.0 BUN 12 8 - 27 mg/dL [facility] Creatinine 0.70(L) 0.76 - 1.27 mg/dL [facility] eGFR CKD-EPI CR 2020 97 >59 mL/min/1.7 3 [facility] BUN/Creatinine Ratio 17 10 - 24 [facility] Sodium 132(L) 134 - 144 mmol/L [facility] Potassium 4.4 3.5 - 5.2 mmol/L [facility] Chloride 92(L) 96 - 106 mmol/L [facility] Bicarbonate (CO2) 23 20 - 29 mmol/L [facility] Anion Gap 17.0 10.0 - 18.0 mmol/L [facility] Calcium 9.4 8.6 - 10.2 mg/dL [facility] Phosphorus 3.3 2.8 - 4.1 mg/dL [facility] Total Protein 6.7 6.0 - 8.5 g/dL [facility] Albumin 4.7 3.8 - 4.8 g/dL [facility] Globulin 2.0 1.5 - 4.5 g/dL [facility] A/G Ratio 2.4(H) 1.2 - 2.2 [facility] 08/20/2023 1:38 PM EDT 08/20/2023 Narrative [facility] - 08/21/2023 11:07 AM EDT Performed at: ??01 - [facility] [address] ??[id number] Acid Remover: La Haile MD, Phone: ??[phone] us Daniel Dumont DO LAB [id number] LICITED RESULTS Final Result [facility] documented in this encounter Visit Diagnoses Diagnosis Hyponatremia documented in this encounter Care Teams Men'S Custom Hair Piece Consultant Relationship Specialty Start Date End Date Luly Newton MD [address] [place] [address] PCP - General Internal Medicine 02/13/23 documented as of this encounter
--- OUTSIDE RECORDS SUMMARY | 2024-07-09 10:06 | XMS_ITS | Encounter Summary ---
Author Organization [facility] [place], Address [address] [place] [address] Phone Care Team Providers Care Milk Bottling Machine Operator Name Role Phone Luly Newton MD Primary Care Provider [phone] Encounter Details Date Type Department Care Team (Late st Contact Info) Description 02/22/2024 Orders Only [facility] [address] [place] [address] Daniel Dumont DO [address] [facility] [address] [place] [address] Hyponatremia Social History Tobacco Use [...] Visit [facility] [address] [place] [address] Daniel Dumont DO [address] [facility] [place] [address] documented as of this encounter Visit Diagnoses Diagnosis Hyponatremia documented in this encounter Care Teams Milk Bottling Machine Operator Relationship Specialty Start Date End Date Luly Newton MD [address] [place] [address] 104 [place] [address] PCP - General Internal Medicine 02/13/23 documented as of this encounter
--- OUTSIDE RECORDS SUMMARY | 2024-07-09 10:06 | XMS_ITS | Encounter Summary ---
Author Organization [facility] [place], Address [address] [place] [address] Phone Care Team Providers Care Dental Aide Name Role Phone Luly Newton MD Primary Care Provider [phone] Encounter Details Date Type Department Care Team (Late st Contact Info) Description 01/04/2024 Orders Only [facility] [address] [place] [place] [phone] Daniel Dumont DO [address] [place] [address] Hyponatremia; Hypertension Social History Tobacco Use Types Packs/Day Years [...] Visit [facility] [address] [place] [address] Daniel Dumont DO [address] [place] [address] documented as of this encounter Visit Diagnoses Diagnosis Hyponatremia Hypertension documented in this encounter Care Teams Dental Aide Relationship Specialty Start Date End Date Luly Newton MD [address] [place] [address] [place] [address] PCP - General Internal Medicine 02/13/23 documented as of this encounter
--- OUTSIDE RECORDS SUMMARY | 2024-07-09 10:06 | XMS_ITS | Encounter Summary ---
Author Organization [facility] [place], Address [address] [place] [address] Phone Care Team Providers Care Cardiovascular Disease Specialist Name Role Phone Luly Newton MD Primary Care Provider [phone] Encounter Details Date Type Department Care Team (Late st Contact Info) Description 06/01/2023 Documentation Only [facility] [address] [place] [address] Daniel Dumont DO [address] [facility] [address] [place] [address] Social History Tobacco Use Types Packs/Day Years [...] Visit [facility] [address] [place] [address] Daniel Dumont DO [address] [facility] [address] [place] [address] documented as of this encounter Visit Diagnoses Not on filedocumented in this encounter Care Teams Cardiovascular Disease Specialist Relationship Specialty Start Date End Date Luly Newton MD [address] [place] [address] 104 [place] [address] PCP - General Internal Medicine 02/13/23 documented as of this encounter
--- OUTSIDE RECORDS SUMMARY | 2024-07-09 10:06 | XMS_ITS | Encounter Summary ---
Author Organization [facility] [place], Address [address] [place] [address] Phone Care Team Providers Care Rolling Chair Pusher Name Role Phone Luly Newton MD Primary Care Provider [phone] Encounter Details Date Type Department Care Team (Late st Contact Info) Description 07/11/2023 Documentation Only [facility] [address] [place] [address] Daniel Dumont DO [address] [facility] [place] [address] Social History Tobacco Use Types [...] Visit [facility] [address] [place] [address] Daniel Dumont DO [address] [facility] [place] [address] documented as of this encounter Visit Diagnoses Not on filedocumented in this encounter Care Teams Rolling Chair Pusher Relationship Specialty Start Date End Date Luly Newton MD [address] [place] [address] [address] [place] [address] PCP - General Internal Medicine 02/13/23 documented as of this encounter
--- OUTSIDE RECORDS SUMMARY | 2024-07-09 10:06 | XMS_ITS | Encounter Summary ---
Author Organization [facility] [place], Address [address] [place] [address] Phone Care Team Providers Care Lead Business Analyst Name Role Phone Luly Newton MD Primary Care Provider [phone] Encounter Details Date Type Department Care Team (Late st Contact Info) Description 01/25/2024 Orders Only [facility] [address] [place] [address] Daniel Dumont DO [address] [place] [address] Hyponatremia Social History Tobacco Use [...] Services Of [facility] [address] [place] [address] Daniel Dumont DO [address] [facility] [place] [address] documented as of this encounter Visit Diagnoses Diagnosis Hyponatremia documented in this encounter Care Teams Lead Business Analyst Relationship Specialty Start Date End Date Luly Newton MD [address] [place] [address] 104 [place] [address] PCP - General Internal Medicine 02/13/23 documented as of this encounter
--- OUTSIDE RECORDS SUMMARY | 2024-07-09 10:07 | XMS_ITS | Encounter Summary ---
Author Organization [facility] [place], Address [address] [place] [address] Phone Care Team Providers Care Burnisher Name Role Phone Luly Newton MD Primary Care Provider [phone] Reason for Visit * Reason Comments Med Refill Encounter Details Date Type Department Care Team (Late st Contact Info) Description 07/01/2024 Refill [facility] [address] [place] [address] Daniel Dumont DO [address] [place] [address] Social History Tobacco Use Types Packs/Day Years [...] Visit [facility] [address] [place] [address] Daniel Dumont DO [address] [place] [address] documented as of this encounter Visit Diagnoses Not on filedocumented in this encounter Care Teams Burnisher Relationship Specialty Start Date End Date Luly Newton MD [address] [place] [address] [address] [place] [address] PCP - General Internal Medicine 02/13/23 documented as of this encounter
--- OUTSIDE RECORDS SUMMARY | 2024-07-09 10:07 | XMS_ITS | Encounter Summary ---
Author Organization [facility] [place], Address [address] [place] [address] Phone Care Team Providers Care Supervisor Wool Shearing Name Role Phone Luly Newton MD Primary Care Provider [phone] Encounter Details Date Type Department Care Team (Late st Contact Info) Description 11/02/2023 Orders Only [facility] [address] [place] [address] Daniel Dumont DO [address] [facility] [place] [address] Hyponatremia Social History Tobacco Use [...] Visit [facility] [address] [place] [address] Daniel Dumont DO [address] [facility] [place] [address] documented as of this encounter Visit Diagnoses Diagnosis Hyponatremia documented in this encounter Care Teams Supervisor Wool Shearing Relationship Specialty Start Date End Date Luly Newton MD [address] [place] [address] [address] [place] [address] PCP - General Internal Medicine 02/13/23 documented as of this encounter
--- OUTSIDE RECORDS SUMMARY | 2024-07-09 10:07 | XMS_ITS | Clinical Summary ---
Author Organization [facility] [place], Address [address] [place] [address] [place] [address] Phone Care Team Providers Care Dry Box Tender Name Role Phone Luly Newton MD Primary Care Provider [phone] Allergies Active Allergy Reactions Criticality Noted Date Comments Lisinopril 02/13/2023 Penicillins 07/23/2019 Medications acetaminophen (TYLENOL) 325 MG tablet Take 650 mg by mouth every 6 (six) hours if needed for mild pain Active amLODIPine (NORVASC) 10 MG tablet Take 10 mg by mouth 1 (one) time each day Active aspirin (ST ALFREDO) 81 MG EC tablet Take 81 mg by mouth 1 (one) time each day Active atorvastatin (LIPITOR) 40 MG tablet Take 40 mg by mouth 1 (one) time each day Active diazePAM (VALIUM) 5 MG tablet Take 5 mg by mouth every 8 (eight) hours if needed for anxiety Active tamsulosin (Flomax) 0.4 MG 24 hr capsule Take 0.4 mg by mouth 1 (one) time each day Active folic acid (FOLVITE) 1 MG tablet Take 1 mg by mouth 1 (one) time each day Active gabapentin (NEURONTIN) 300 MG capsule Take 300 mg by mouth Active omeprazole (PriLOSEC) [address] capsule Take 20 mg by mouth 1 (one) time each day Do not crush or chew. Active oxyCODONE (ROXICODONE) 10 MG immediate release tablet Take 10 mg by mouth every 8 (eight) hours if needed for moderate pain Active pyridoxine (B-6) 50 MG tablet Take 50 mg by mouth 1 (one) time each day Active furosemide (LASIX) 20 MG tablet Take 0.5 tablets (10 mg total) by mouth 1 (one) time each day 45 tablet 3 4 025 Active sodium chloride 1 g tablet TAKE ONE TABLET BY MOUTH IN THE MORNING AND 1 TABLET BY MOUTH IN THE EVENING AND 1 TABLET BEFORE BEDTIME 90 tablet 5 Active sodium chloride 1 g tablet TAKE ONE TABLET BY MOUTH IN THE MORNING AND 1 TABLET BY MOUTH IN THE EVENING AND 1 TABLET BEFORE BEDTIME 90 tablet 4 025 Discontinued Active Problems Problem Noted Date Diagnosed Date Acute kidney failure with tubular necrosis 02/14 Hypertension 02/13/2023 Hyponatremia 02/13/2023 Encounters Date Type Department Care Team Description 07/01/2024 Refill [facility] [address] [place] [address] Daniel Dumont DO 06/20/2024 Orders Only [facility] [address] [place] [address] Daniel Dumont DO Hyponatremia; Hypertension 05/28/2024 Refill [facility] [address] [place] [address] Daniel Dumont DO 05/03/2024 Refill [facility] [address] [place] [address] Daniel Dumont DO 04/30/2024 2:30 PM EST Office Visit [facility] [address] [place] [address] Daniel Dumont DO Hyponatremia (Primary Dx); Hypertension 04/30/2024 Documentation Only [facility] [address] [place] [address] Daniel Dumont DO from Last 3 Months Family History Medical History Relation Comments Cancer Brother Relation Status Comments Brother Social History Tobacco Use Types Packs/Day Years Used Date Smoking Tobacco: Never Assessed Sex and Gender Information Value Date Recorded Sex Assigned at Male 02/13/2023 8:13 AM EDT Legal Sex Male 8:13 AM EDT Gender Identity Male 02/13/2023 8:13 AM EDT Sexual Orientation Not on file Last Filed Vital Signs Vital Sign Reading Time Taken Comments Blood Pressure 136/80 04/30/2024 2:48 PM EST Pulse 72 04/30/2024 2:48 PM EST Temperature - - Respiratory Rate - - Oxygen Saturation - - Inhaled Oxygen Concentration - - Weight - - Height - - Body Mass Index - - Plan of Treatment Upcoming Encounters Date Type Department Care Team (Late st Contact Info) Description 11/19/2024 1:30 PM EDT Office Visit [facility] [place], [address] [place] [address] Daniel Dumont DO [address] [place] [phone] Health Maintenance Due Date Last Done Comments Colorectal Cancer Screening: Annual FOBT 1998 Colorectal Cancer Screening: Colonoscopy 1998 Colorectal Cancer Screening: Sigmoidoscopy 1998 Influenza Vaccine (#1) 2024 Pneumococcal Vaccine: 65+ Years Completed 05/18/2017, 05/16/2016 Hepatitis B Vaccine Aged Out No longe r eligible based on patient's age to complete this topic Insurance [facility] Care Teams Dry Box Tender Relationship Specialty Start Date End Date Luly Newton MD [address] [place] [address] PCP - General Internal Medicine 02/13/23
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
--- OUTSIDE RECORDS SUMMARY | 2024-07-09 10:07 | XMS_ITS | Data Portability ---
Author Organization [facility], [id number] Address [address] [place] [address] Assessment No assessment recorded. Plan of Treatment [...] Diagnosis/Indication Diagnosis SNOMED-CT Code Diagnosis ICD10 Code Diagnosis Note [id number] [facility] lorenr [address] [place] [address] 05/14/2017 08:53:48 05/14/2017 10:00:32 [id number] [facility] [address] [address] 06/23/2019 13:48:02 06/23/2019 15:14:27 [id number] [facility] lorenlDr [address] [place] [address] 10/20/2020 15:26:32 10/20/2020 16:16:34 [id number] [facility] [address] [place] [address] 07/22/2020 12:46:34 07/22/2020 13:52:23 Health Concerns Section Related Observation LastModified by Organization Detai ls LastModified Time None Recorded Concern Status LastModified by Organization Details LastModified Time None Recorded Advance Directives Directive None Recorded Payers Encounter Date Sequence Insurance Name Policy Number Policy Hillman Covered Member ID Hillman Member ID Guarantor Name 05/14/2017 1 [facility]: MEDICARE PPO BLUE (MEDICARE REPLACEMENT PPO) [id number] Luis Angel Scott [id number] Luis Angel Scott 06/23/2019 1 [facility]: MEDICARE PPO BLUE (MEDICARE REPLACEMENT PPO) [id number] Luis Angel Scott [id number] Luis Angel Scott 07/22/2020 1 [facility]: MEDICARE PPO BLUE (MEDICARE REPLACEMENT PPO) [id number] Luis Angel Scott [id number] Luis Angel Scott 10/20/2020 1 [facility]: MEDICARE PPO BLUE (MEDICARE REPLACEMENT PPO) [id number] Luis Angel Scott [id number] Luis Angel Scott
--- OUTSIDE RECORDS SUMMARY | 2024-07-09 10:07 | XMS_ITS | Encounter Summary ---
Author Organization [facility] [place], Address [address] [place] [address] Phone Care Team Providers Care Flame Degreaser Name Role Phone Luly Newton MD Primary Care Provider [phone] Encounter Details Date Type Department Care Team (Late st Contact Info) Description 10/05/2023 Orders Only [facility] [address] [place] [address] Daniel Dumont DO [address] [place] [address] Hyponatremia Social History Tobacco Use [...] Visit [facility] [address] [place] [address] Daniel Dumont DO [address] [place] [address] documented as of this encounter Visit Diagnoses Diagnosis Hyponatremia documented in this encounter Care Teams Flame Degreaser Relationship Specialty Start Date End Date Luly Newton MD [address] [place] [address] [address] [place] [address] PCP - General Internal Medicine 02/13/23 documented as of this encounter
--- OUTSIDE RECORDS SUMMARY | 2024-07-09 10:07 | XMS_ITS | Encounter Summary ---
Author Organization [facility] [place], Address [address] [place] [address] Phone Care Team Providers Care Oxyacetylene Burner Name Role Phone Luly Newton MD Primary Care Provider [phone] Encounter Details Date Type Department Care Team (Late st Contact Info) Description 09/07/2023 Orders Only [facility] [address] [place] [address] Daniel Dumont DO [address] [place] [address] Hyponatremia Social History Tobacco Use [...] Visit [facility] [address] [place] [address] Daniel Dumont DO [address] [place] [address] documented as of this encounter Visit Diagnoses Diagnosis Hyponatremia documented in this encounter Care Teams Oxyacetylene Burner Relationship Specialty Start Date End Date Luly Newton MD [address] [place] [address] [address] [place] [address] PCP - General Internal Medicine 02/13/23 documented as of this encounter
--- OUTSIDE RECORDS SUMMARY | 2024-07-09 10:07 | XMS_ITS | Data Portability ---
Author Organization [facility], [facility] Address [address] [place] [address] Care Team Providers Care Vice President Payer Name Role Phone MELQUIADES JIMÉNEZ Primary Care Provider [phone] Assessment No assessment recorded. 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 Procedures Surgical History Date Name Laterality Status Provider Name and Address Organization Details Recorded Time 04/03/2024 Sports Knee 4&1 cancelled Weston Oakes PA-C [address], [place], [address], [facility] 04/03/2024 07:33:56 01/03/2024 Sports Knee 4&1 completed Weston Oakes PA-C [address], [place], [address], [facility] 01/03/2024 07:33:11 10/01/2023 Sports Knee 4&1 completed Weston Oakes PA-C [address], [place], [address], [place] [facility] 10/01/2023 07:39:31 Imaging Results None recorded. Procedure Notes None recorded. Medical Equipment None Reported. Allergies Allergen ID Allergen Name Allergen Category Reaction Reaction Severity Criticality Documentation Date Start Date Code Code System Note Provider Name and Address Organization Details Recorded Time 02288 Product containin g penicilli n and antibioti c (product) medicatio n swelling Not available Not available 08/13/20232017 67394 05 SNOMED Not Available [facility] 11:39:11 Medications Name Sig Start Date Stop [...] Updated DateTime 10/01/2023 172.72 cm 25.8 kg/m2 04706.7 g PRIMO MIRZA [facility] 10/01/2023 09:49:15 Date Recorded Body height Body mass index (BMI) Body weight Provider Name and Address Organization Details Last Updated DateTime 01/03/2024 172.72 cm 25.8 kg/m2 12090.7 g ARASELI WHITNEY [facility] 01/03/2024 08:44:06 Social History None recorded. Functional Status None recorded. Mental Status None recorded. Family History Nothing Reported. Medical History No medical history recorded. Past Encounters Encounter ID Performer Location Encounter Start Date Encounter Closed Date Diagnosis/Indication Diagnosis SNOMED-CT Code Diagnosis ICD10 Code Diagnosis Note [id number] SERAFIN Momin [address] [place] [address] 10/01/2023 09:39:57 10/22/2023 06:46:39 Osteoarthritis of left knee joint [id number] 18948 M17.12 [id number] SERAFIN Mominmitchell [address] [place] [address] 01/03/2024 08:31:57 01/23/2024 15:15:04 Osteoarthritis of left knee joint [id number] 25307 M17.12 Health Concerns Section Related Observation LastModified by Organization Detai ls LastModified Time None Recorded Concern Status LastModified by Organization Details LastModified Time None Recorded Advance Directives Directive None Recorded Payers Encounter Date Sequence Insurance Name Policy Number Policy Hillman Covered Member ID Hillman Member ID Guarantor Name 10/01/2023 1 [facility]: MEDICARE PPO BLUE (MEDICARE REPLACEMENT PPO) [id number] Luis Angel Scott [id number] Luis Angel Scott 01/03/2024 1 [facility]: MEDICARE PPO BLUE (MEDICARE REPLACEMENT PPO) [id number] Luis Angel Scott [id number] Luis Angel Scott Notes Date Note [...] per intake sheet. Physical Findings General Appearance: ? ? ? Well developed. ? ? ? In no acute distress. Musculoskeletal System: Knee: General/bilateral: ? ? ? No laxity of the knee. Right Knee: ? Medial aspect was tender on palpation. ? ? ? No erythema. ? ? ? No warmth. Left Knee: ? Medial aspect was tender on palpation. ? ? ? No erythema. ? ? ? No warmth. Musculoskeletal Scales: General/bilateral: ? Mild effusion noted. Neurological: ? ? ? Oriented to time, place, and person. Gait And Stance: ? ? ? Normal. Psychiatric: ? ? ? Mood was appropriate to the affect. Left knee 0-120 degrees of flexion with discomfort. Assessment ? Osteoarthritis of knee - Plan More [...] versus continued conservative treatment. Weston Oakes PA-C [address] [place] [address] [address], [place], [address], [facility] 10/01/2023 16:44:48 01/03/2024 text/html I am seeing [...] per intake sheet. Physical Findings General Appearance: ? ? ? Well developed. ? ? ? In no acute distress. Musculoskeletal System: Knee: General/bilateral: ? ? ? No laxity of the knee. Right Knee: ? Medial aspect was tender on palpation. ? ? ? No erythema. ? ? ? No warmth. Left Knee: ? Medial aspect was tender on palpation. ? ? ? No erythema. ? ? ? No warmth. Musculoskeletal Scales: General/bilateral: ? Mild effusion noted. Neurological: ? ? ? Oriented to time, place, and person. Gait And Stance: ? ? ? Normal. Psychiatric: ? ? ? Mood was appropriate to the affect. Left knee 0-120 degrees of flexion with discomfort. Assessment ? Osteoarthritis of knee - Plan More [...] knee replacement surgery versus continued conservative treatment. BHAVESH Momin-C [address] [facility] [address], [place], [address], [place] [facility] 01/04/2024 07:25:10
--- OUTSIDE RECORDS SUMMARY | 2024-07-09 10:07 | XMS_ITS | Encounter Summary ---
Author Organization [facility] [place], Address [address] [place] [address] Phone Care Team Providers Care Service Or Work Dispatcher Chief Name Role Phone Luly Newton MD Primary Care Provider [phone] Encounter Details Date Type Department Care Team (Late st Contact Info) Description 06/20/2024 Orders Only [facility] [address] [address] Daniel Dumont DO [address] [place] [address] Hyponatremia; Hypertension Social History Tobacco [...] Visit [facility] [address] [address] Daniel Dumont DO [address] [place] [address] documented as of this encounter Visit Diagnoses Diagnosis Hyponatremia Hypertension documented in this encounter Care Teams Service Or Work Dispatcher Chief Relationship Specialty Start Date End Date Luly Newton MD [address] [place] [address] [place] [address] PCP - General Internal Medicine 02/13/23 documented as of this encounter
--- OUTSIDE RECORDS SUMMARY | 2024-07-09 10:08 | XMS_ITS | Encounter Summary ---
Author Organization [facility] Address [address] [place] [address] Phone Care Team Providers Care Terry Cloth Cutter Hand Name Role Phone Luly Newton MD Primary Care Provider [phone] Encounter Details Date Type Department Care Team (Late st Contact Info) Description 02/28/2024 Documentation Only [facility] [address] [place] [address] [place] [address] [place] [address] Social History Tobacco Use Types Packs/Day Years [...] Visit [facility] [address] [place] [address] Daniel Dumont [address] [place] [address] documented as of this encounter Visit Diagnoses Not on filedocumented in this encounter Care Teams Terry Cloth Cutter Hand Relationship Specialty Start Date End Date Luly Newton MD [address] [place] [address] [address] [place] [address] PCP - General Internal Medicine 02/13/23 documented as of this encounter
--- OUTSIDE RECORDS SUMMARY | 2024-07-09 10:08 | XMS_ITS | Encounter Summary ---
Author Organization [facility] [place], Address [address] [place] [address] Phone Care Team Providers Care Chief Financial Officer Name Role Phone Luly Newton MD Primary Care Provider [phone] Encounter Details Date Type Department Care Team (Late st Contact Info) Description 02/13/2023 Documentation Only [facility] [address] [place] [address] Daniel Dumont DO [address] [facility] [place] [address] Social History Tobacco Use Types [...] Visit [facility] [address] [place] [address] Daniel Dumont DO [address] [facility] [place] [address] documented as of this encounter Visit Diagnoses Not on filedocumented in this encounter Care Teams Chief Financial Officer Relationship Specialty Start Date End Date Luly Newton MD [address] [place] [address] 104 [place] [address] PCP - General Internal Medicine 02/13/23 documented as of this encounter
--- OUTSIDE RECORDS SUMMARY | 2024-07-09 10:08 | XMS_ITS | Encounter Summary ---
Author Organization [facility] [place], Address [address] [place] [address] Phone Care Team Providers Care Architectural Draftsperson Name Role Phone Luly Newton MD Primary Care Provider [phone] Encounter Details Date Type Department Care Team (Late st Contact Info) Description 04/30/2024 Documentation Only [facility] [address] [place] [address] Daniel Dumont DO [address] [facility] [place] [address] Social History Tobacco Use Types [...] Visit [facility] [address] [place] [address] Daniel Dumont DO [address] [facility] [place] [address] documented as of this encounter Visit Diagnoses Not on filedocumented in this encounter Care Teams Architectural Draftsperson Relationship Specialty Start Date End Date Luly Newton MD [address] [place] [address] 104 [place] [address] PCP - General Internal Medicine 02/13/23 documented as of this encounter
--- OUTSIDE RECORDS SUMMARY | 2024-07-09 10:08 | XMS_ITS | Encounter Summary ---
Author Organization [facility] [place], Address [address] [place] [address] Phone Care Team Providers Care Loan Reviewer Name Role Phone Luly Newton MD Primary Care Provider [phone] Encounter Details Date Type Department Care Team (Late st Contact Info) Description 02/09/2023 Documentation Only [facility] [address] [place] [address] Daniel Dumont DO [address] [facility] [place] [address] Social History Tobacco Use Types [...] Visit [facility] [address] [place] [address] Daniel Dumont DO [address] [facility] [place] [address] documented as of this encounter Visit Diagnoses Not on filedocumented in this encounter Care Teams Loan Reviewer Relationship Specialty Start Date End Date Luly Newton MD [address] [place] [address] 104 [place] [address] PCP - General Internal Medicine 02/13/23 documented as of this encounter
--- OUTSIDE RECORDS SUMMARY | 2024-07-09 10:08 | XMS_ITS | Encounter Summary ---
Author Organization [facility] [place], Address [address] [place] [address] Phone Care Team Providers Care Import Export Clerk Name Role Phone Luly Newton MD Primary Care Provider [phone] Encounter Details Date Type Department Care Team (Late st Contact Info) Description 03/21/2024 Orders Only [facility] [address] [facility] [address] [facility] [place] [address] Daniel Dumont DO [address] [facility] [place] [address] Hyponatremia Social History Tobacco Use [...] Visit [facility] [address] [facility] [place] [address] Daniel Dumont DO [address] [facility] [place] [address] documented as of this encounter Visit Diagnoses Diagnosis Hyponatremia documented in this encounter Care Teams Import Export Clerk Relationship Specialty Start Date End Date Luly Newton MD [address] [place] [address] 104 [place] [address] PCP - General Internal Medicine 02/13/23 documented as of this encounter
--- OUTSIDE RECORDS SUMMARY | 2024-07-09 10:08 | XMS_ITS | Encounter Summary ---
Author Organization [facility] [place], Address [address] [place] [address] Phone Care Team Providers Care Market Garden Worker Name Role Phone Luly Newton MD Primary Care Provider [phone] Encounter Details Date Type Department Care Team (Late st Contact Info) Description 02/14/2023 Documentation Only [facility] [address] [place] [address] Luly Newton MD [address] [place] [address] Social History Tobacco Use Types Packs/Day Years [...] Visit [facility] [address] [place] [address] Daniel Dumont [address] [place] [address] documented as of this encounter Visit Diagnoses Not on filedocumented in this encounter Care Teams Market Garden Worker Relationship Specialty Start Date End Date Luly Newton MD [address] [place] [address] PCP - General Internal Medicine 02/13/23 documented as of this encounter
--- OUTSIDE RECORDS SUMMARY | 2024-07-09 10:08 | XMS_ITS | Encounter Summary ---
Author Organization [facility] [place], Address [address] [place] [address] Phone Care Team Providers Care Promotional Advertising Assistant Name Role Phone Luly Newton MD Primary Care Provider [phone] Encounter Details Date Type Department Care Team (Late st Contact Info) Description 03/28/2024 Orders Only [facility] [address] [facility] [place] [address] Daniel Dumont DO [address] [facility] [place] [address] Hyponatremia; Hypertension Social History Tobacco [...] Visit [facility] [address] [place] [address] Daniel Dumont DO [address] [facility] [place] [address] documented as of this encounter Visit Diagnoses Diagnosis Hyponatremia Hypertension documented in this encounter Care Teams Promotional Advertising Assistant Relationship Specialty Start Date End Date Luly Newton MD [address] [place] [address] [place] [address] PCP - General Internal Medicine 02/13/23 documented as of this encounter
--- OUTSIDE RECORDS SUMMARY | 2024-07-09 10:08 | XMS_ITS | Encounter Summary ---
Author Organization [facility] [place], Address [address] [place] [address] Phone Care Team Providers Care Fisheries Technical Officer Name Role Phone Luly Newton MD Primary Care Provider [phone] Encounter Details Date Type Department Care Team (Late st Contact Info) Description 04/04/2023 Documentation Only [facility] [address] [place] [address] Daniel Dumont DO [address] [facility] [place] [address] Social History Tobacco Use Types [...] Visit [facility] [address] [place] [address] Daniel Dumont DO [address] [facility] [place] [address] documented as of this encounter Visit Diagnoses Not on filedocumented in this encounter Care Teams Fisheries Technical Officer Relationship Specialty Start Date End Date Luly Newton MD [address] [place] [address] [address] [place] [address] PCP - General Internal Medicine 02/13/23 documented as of this encounter
--- OUTSIDE RECORDS SUMMARY | 2024-07-09 10:09 | XMS_ITS | Encounter Summary ---
Author Organization [facility] [place], Address [address] [place] [address] Phone Care Team Providers Care Etl Informatica Developer Name Role Phone Luly Newton MD Primary Care Provider [phone] Encounter Details Date Type Department Care Team (Late st Contact Info) Description 01/27/2023 Documentation Only [facility] [address] [place] [address] Daniel Dumont DO [address] [facility] [place] [address] Social History Tobacco Use Types [...] Visit [facility] [address] [place] [address] Daniel Dumont DO [address] [facility] [place] [address] documented as of this encounter Visit Diagnoses Not on filedocumented in this encounter Care Teams Etl Informatica Developer Relationship Specialty Start Date End Date Luly Newton MD [address] [place] [address] 104 [place] [address] PCP - General Internal Medicine 02/13/23 documented as of this encounter
--- OUTSIDE RECORDS SUMMARY | 2024-07-09 10:09 | XMS_ITS | Encounter Summary ---
Author Organization [facility] [place], Address [address] [place] [address] Phone Care Team Providers Care Mechanical Systems Design Engineer Name Role Phone Luly Newton MD Primary Care Provider [phone] Encounter Details Date Type Department Care Team (Late st Contact Info) Description 02/13/2023 Documentation Only [facility] [address] [place] [address] Daniel Dumont DO [address] [facility] [place] [address] Social History Tobacco Use Types [...] Visit [facility] [address] [place] [address] Daniel Dumont DO [address] [facility] [place] [address] documented as of this encounter Visit Diagnoses Not on filedocumented in this encounter Care Teams Mechanical Systems Design Engineer Relationship Specialty Start Date End Date Luly Newton MD [address] [place] [address] [address] [place] [address] PCP - General Internal Medicine 02/13/23 documented as of this encounter
== END 2024-07-09 09:54 | disposition home or self-care (01) ==
PROVIDERS: PCP Internal Medicine; Visit Provider Internal Medicine
DX: G58.9 Mononeuropathy, unspecified (principal); M54.9 Dorsalgia, unspecified; M47.816 Spondylosis without myelopathy or radiculopathy, lumbar region
CPT/HCPCS: 99213

== ENCOUNTER → 2024-07-09 08:56 | Outpatient (BNVA) | payer MEDICARE, SELFPAY | PROVIDERS: PCP Internal Medicine; Visit Provider Internal Medicine | DX: M54.9 Dorsalgia, unspecified (principal); M47.816 Spondylosis without myelopathy or radiculopathy, lumbar region; G58.9 Mononeuropathy, unspecified | CPT/HCPCS: 99212 ==

== ENCOUNTER 2025-02-23 08:50 | Inpatient (IN) | payer MEDICARE, SELFPAY ==
--- NOTE | ~2025-02-23 | CT_ITS ---
EXAMINATION: CTA NECK WITH CONTRAST (STROKE) CTA BRAIN WITH CONTRAST (STROKE) CLINICAL INFORMATION: Visual loss, right-sided. COMPARISON: None available. TECHNIQUE: CTA of the head and neck was performed in the axial plane from the mediastinum to the skull vertex using 70 mL Omnipaque 350 intravenous contrast. Additional reformatted multiplanar images including maximum intensity projection MIP images are generated on the CT workstation. This CT examination was performed using dose optimization techniques as appropriate, variously including the following: *Automated exposure control *Adjustment of mA and/or kV according to patient size (this includes techniques or standardized protocols for targeted exams where dose is matched to indication/reason for exam; i.e. extremities or head) *Use of iterative reconstruction technique. DLP: 725 mGy centimeter. FINDINGS: The degree of stenosis determined by criteria similar to NASCET. Chest CTA: Calcified plaques in the thoracic aortic arch wall and its main branches without focal stenosis or intimal flap. No aneurysm, thoracic aortic arch. Neck CTA: Right CCA: Calcified plaques. Tortuosity. Normal patency. No focal stenosis. No intimal flap. Right ICA: Large calcified plaque in the carotic bulb and proximal segment representing 60% stenosis. Normal patency. No intimal flap. Left CCA: Tortuosity. Normal patency. No focal stenosis. No intimal flap. Calcified plaques. Left ICA: Calcified plaques without focal stenosis. Normal patency. No intimal flap. Tortuosity. V1/V2 segments: Normal patency. Tortuosity in the proximal segments. No focal stenosis. No intimal flap. Left vertebral artery is dominant. Origin directly from the subclavian artery. Brain CTA: Anterior cerebral circulation: ICAs: Calcified plaques petrous cavernous supracavernous segments. Normal patency. No focal stenosis. No abrupt cut off. ICA terminus without gross vascular irregularity. MCA's: Normal patency. No focal stenosis. No abrupt cut off. Bifurcation/trifurcation demonstrated no gross irregularity. ACAs: Normal patency. No focal stenosis. No abrupt cut off. Ophthalmic arteries are patent with no vascular irregularity at the origin. Anterior communicating artery is not identified. The posterior communicating arteries are patent with a robust right artery. Posterior cerebral circulation: V3/V4 segments: No focal stenosis. No intimal flap. Left vertebral artery is dominant. Posterior inferior cerebral arteries are patent. Basilar artery is patent without focal stenosis or intimal flap. Superior cerebellar arteries are patent. water manager: Hypoplastic/atrophic right P1 segment. Normal patency. No focal stenosis or abrupt cut off. Poor visualization of the V3 segments. Ancillary findings: The main cerebral venous sinuses are patent without intraluminal filling defects. Multifocal different sizes hypodensities in the thyroid gland, there largest in the left thyroid lobe measures 14 mm. Sagittal pulmonary mosaic pattern. Multilevel cervical spondylosis resulting in grade 1 retrolisthesis C3-4. Polypoid mucosal thickening paranasal sinuses. Bilateral prominent cervical lymph nodes, nonspecific. CT/CT angio head neck STROKE IMPRESSION: No gross main cerebral artery occlusion or embolus or gross cerebral aneurysm. origin, right COAT [employer]ON[employer] HAND. Atherosclerosis disease, intracranial and extracranial. Poor visualization of the right P3 segment. 60% stenosis right ICA. No dissection. Multiple low density/cystic thyroid nodules. This critical test result is communicated to: An emergency physician Dr. Steven Alvarez on February 23, 2023 at 10:30 AM. Electronically signed by: Mark Burger MD 02/23/2025 10:51 AM EDT
--- NOTE | ~2025-02-23 | MR_ITS ---
CLINICAL HISTORY: visual loss right eyeWill send CT head for comparison MR Brain without gadolinium Comparison: CT/REG/DE/SR - CT HEAD WITHOUT IV CONTRAST STROKE - 02/23/25 09:54 EDT MR/REG/SR - MR BRAIN WITHOUT THEN WITH IV CONTRAST - 01/01/24 11:53 EDT Findings: There is atrophy. The ventricles are normal in position with no midline shift or herniation. Restricted diffusion in the superior aspect of the right basal ganglia extending to right mo radiata. Additional nonspecific bilateral supratentorial white matter hyperintensities most suggestive of chronic small-vessel ischemic changes. Right parieto-occipital encephalomalacia suggestive of nonacute infarct. No intra-axial or extra-axial hemorrhage. No focal mass lesion or mass effect on this unenhanced study. Flow voids are maintained within the major vessels of the base of the brain. The orbits are normal. Mild mucosal thickening in the right maxillary sinus and ethmoid air cells bilaterally. Small mucous retention cyst/polyp in left maxillary sinus. No focal bone lesion. IMPRESSION: 1. Restricted diffusion consistent with acute ischemia involving superior aspect of right basal ganglia extending to the mo radiata. 2. Additional nonacute findings as described. This document has been electronically signed by: Sol Sahni MD on 02/23/2025 17:23:39
--- NOTE | ~2025-02-23 | CT_ITS ---
EXAMINATION: CT HEAD WITHOUT CONTRAST (STROKE PROTOCOL) CLINICAL INFORMATION: Acute visual loss , right side concerning acute stroke. COMPARISON: May 28, 2023. TECHNIQUE: Contiguous axial imaging was performed from the skull base to vertex without intravenous administration of contrast. This CT examination was performed using dose optimization techniques as appropriate, variously including the following: *Automated exposure control *Adjustment of mA and/or kV according to patient size (this includes techniques or standardized protocols for targeted exams where dose is matched to indication/reason for exam; i.e. extremities or head) *Use of iterative reconstruction technique 695 mGy centimeter. FINDINGS: No acute intracranial hemorrhage. Right parietal occipital encephalomalacia. Bilateral multifocal patchy and confluent deep periventricular white matter and subcortical white matter hypodensities involving centrum semiovale and mo radiata both hemispheres. Old lacunar infarct, right basal ganglia/mo radiata. Multifocal old lacunar infarcts in the lenticular nuclei and thalami and mo radiata white matter. Prominence of the extra-axial CSF spaces cerebral sulci and ventricles. Patchy hypodensities in the right basal ganglia. Calcified plaques in the cavernous supracavernous segments both ICAs. Craniocervical junction demonstrates normal position of the cerebellar tonsils. Sellar/suprasellar region demonstrated no gross masses or focal hemorrhage. Polypoid mucosal thickening paranasal sinuses. Tympanic cavities and mastoid cells are aerated with poor pneumatization right mastoid air cells. CT/CT head for STROKE IMPRESSION: Extensive white matter disease likely related to small vessel occlusive disease with multifocal old lacunar in and encephalomalacia, right parietal occipital. Superimposed acute nonhemorrhagic ischemia cannot be entirely excluded. No acute intracranial hemorrhage. Atherosclerosis disease, intracranial. Global cerebral atrophy. This critical result [facility] 10[facility]36 AM hours on February 23, 2025. It was ascertained that the content and urgency of the report was understood at the time of direct communication. Electronically signed by: Mark Burger MD 02/23/2025 10:37 AM EDT
[2025-02-23 08:54] VITALS: BP 159/89; PULSE 100; RESP 16; TEMP 36.8; O2SAT 96; BMI 25.4
--- NOTE | 2025-02-23 09:04 | PC.NURSE ---
Rapid stroke assessment negative in triage by this RN. Moved to ED 3 from triage, with . Dr. Alvarez to evaluate.
--- NOTE | 2025-02-23 09:29 | ED.EYEPROB ---
HPI - Eye Problem General Chief complaint: Eye Problems Stated complaint: woke up blind in right eye Time Seen by Provider: 02/23/25 09:04 Source: patient Mode of arrival: ambulatory Limitations: no limitations History of Present Illness ED Provider: HPI Narrative: 74-year-old male with a history of hypertension, psoriasis, chronic back pain from osteomyelitis due to what sounds like being on immunosuppressants for psoriasis, woke up in the morning and realized that he can see out of his right eye only blurry shadows. Went to bed at 20:00 woke up 830 in the morning. No trauma no speech deficits no weakness in upper or lower extremities no sensory deficits reported. No eye pain Related Data Home Medications ?Medication ?Instructions ?Recorded ?Confirmed omeprazole 20 mg capsule,delayed 20 mg PO DAILY 06/03/22 02/23/25 release amlodipine 10 mg tablet 10 mg PO DAILY 08/16/23 02/23/25 tamsulosin 0.4 mg capsule 0.4 mg PO DAILY 08/16/23 02/23/25 sodium chloride 1,000 mg soluble 1,000 mg PO BID 08/20/23 02/23/25 tablet Previous Rx's ?Medication ?Instructions ?Recorded oxycodone 5 mg tablet 5 mg PO BID PRN severe pain (scale 10/19/23 score 7-10) #14 tabs aspirin 81 mg tablet,delayed 81 mg PO DAILY #90 tabs 02/25/25 release atorvastatin 40 mg tablet 80 mg (2 x 40 mg) PO DAILY #180 02/25/25 tabs Allergies Allergy/AdvReac Type Severity Reaction Status Date / Time Penicillins AdvReac swollen Verified 02/23/25 08:57 Review of Systems Constitutional: Constitutional: Reports as per HPI [facility] Past Medical History Medical History Dyspnea on exertion Osteoarthritis Erectile dysfunction Hypercholesteremia Diskitis Tubular adenoma SIAD (syndrome of inappropriate antidiuresis) Thoracic aortic aneurysm Constipation CAD (coronary artery disease) History of rib fracture Hard of hearing History of MRSA infection Back pain GERD (gastroesophageal reflux disease) Weakness Habitual snoring High cholesterol Hypertension Surgical History History of esophagogastroduodenoscopy (EGD) Hx of tonsillectomy History of total right knee replacement Hx of cataract extraction H/O colonoscopy Knee joint replacement status Social History Social History Household Members: Spouse Housing: House Are you a primary home health care case manager to a significant other at home: No Do you presently have visiting nurse or other home services: No Alcohol intake: current Alcohol intake frequency: 3 or more drinks per day Alcohol type: beer Patient Tobacco Use Status: Former Tobacco user Advance Directives Date on File: 02/24/25 service: No Current occupational status: 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 Extraocular movement is intact, visual black are intact left eye, patient is only seeing blurry shadows at bedside with right eye, intra-ocular pressures right eye , no edema periorbital Neck: Supple, no LAD CV: S1-S2 RRR Resp: ?No wheezing rales rhonchi no stridor moving air well Abd: ?Bowel sounds are present, no tenderness no rebound no rigidity MSK: FROM, strength 5/5 all extremities Skin: Warm, dry, intact, Neuro: ?Alert and oriented x3, moving upper and lower extremities symmetrically, no obvious facial asymmetry noted, no sensory deficits NIH Stroke Scale Internal: Initial- Upon Arrival Level of Consciousness: Alert Level of Consciousness Questions: Answers both questions correctly Level of Consciousness Commands: Performs both tasks correctly Best Gaze: Normal Visual: Complete hemianopia Facial Palsy: Normal Motor Arm (Right): No drift Motor Arm (Left): No drift Motor Leg (Right): No drift Motor Leg (Left): No drift Limb Ataxia: Absent Sensory: Normal Best Language: No aphasia Dysarthia: Normal Extinction and Inattention: No abnormality Score: 2 Medications Administered Generic Name Dose Route Start Last Admin Trade Name Freq PRN Reason Stop Dose Admin Aspirin 81 mg 02/24/25 09:00 02/25/25 09:35 Aspirin Enteric Coated 81 Mg Tablet. PO 81 mg DAILY LAURI Administration Atorvastatin Calcium 80 mg 02/23/25 21:00 02/24/25 21:45 Atorvastatin Calcium 80 Mg Tablet PO 80 mg BEDTIME LAURI Administration Enoxaparin Sodium 40 mg 02/24/25 09:00 02/25/25 09:35 Enoxaparin Sodium 40 Mg/0.4 Ml Syringe SUBCUT 40 mg Q24H LAURI Administration Lorazepam 0.5 mg 02/24/25 22:11 02/25/25 09:43 Lorazepam 0.5 Mg Tablet PO 0.5 mg Q8H PRN Administration Anxiety Omeprazole 20 mg 02/24/25 06:30 02/25/25 05:59 Omeprazole 20 Mg Capsule. PO 20 mg DAILY@0630 LAURI Administration Oxycodone HCl 5 mg 02/23/25 18:40 02/24/25 22:50 Oxycodone Hcl Immed Release 5 Mg Tablet PO 5 mg BID PRN Administration severe pain (scale score 7-10) Sodium Chloride 3 ml 02/24/25 00:00 02/25/25 09:35 0.9 % Sodium Chloride Flush 3 Ml Syringe IVFLUSH 3 ml QSHIFT LAURI Administration Sodium Chloride 1 gm 02/23/25 21:00 02/25/25 09:35 Sodium Chloride Tab 1 Gm Tablet PO 1 gm BID LAURI Administration Tamsulosin HCl 0.4 mg 02/24/25 09:00 02/25/25 09:35 Tamsulosin Hcl 0.4 Mg Capsule PO 0.4 mg DAILY LAURI Administration Discontinued Medications Generic Name Dose Route Start Last Admin Trade Name Freq PRN Reason Stop Dose Admin Aspirin 162 mg 02/23/25 17:46 02/23/25 18:02 Aspirin 81 Mg Tab.Chew PO 02/23/25 17:47 162 mg ONCE ONE Administration Diazepam 4 mg 02/23/25 15:47 02/23/25 16:06 Diazepam 2 Mg Tablet PO 02/23/25 15:48 4 mg ONCE ONE Administration Iohexol 70 ml 02/23/25 10:15 02/23/25 10:16 Iohexol 350 Mg/Ml 75 Ml Infus..Btl IV 02/23/25 10:16 70 ml ONCE ONE Administration Lorazepam 0.5 mg 02/24/25 14:50 02/24/25 15:03 Lorazepam 0.5 Mg Tablet PO 02/24/25 14:51 0.5 mg ONCE ONE Administration Tetracaine HCl 1 drop 02/23/25 09:06 02/23/25 09:41 Tetracaine Hcl 0.5% Oph Salma 5 Ml Drops EYE-RIGHT 02/23/25 09:07 Not Given ONCE ONE Medical Decision Making Medical Decision Making MDM Narrative: 9:41 AM 02/23/2025 (Dr. Steven Alvarez): Consideration for workup as below, bedside ultrasound without any evidence of lens detachment, retinal detachment or vitreous hemorrhage, optic nerve with a normal diameter indicating no intra-ocular pressure increase, we will obtain inflammatory markers for giant cell arteritis, there was no evidence for acute angle closure glaucoma his pressures are normal, use pupils are 2 mm reactive, would not be able to do ophthalmoscopic exam as I am not dilating his high in the ER, but I will obtain CT to evaluate for any ischemia, thereafter I anticipate contacting ophthalmology, patient has no other neurologic deficits 10:43 AM 02/23/2025 (Dr. Setven Alvarez): Discussed patient's imaging with radiologist, recommended MR noncontrast and I also speak to Dr. Orta 2:52 PM 02/23/2025 (Dr. Steven Alvarez): I did speak with Dr. Orta for follow up tomorrow patient is also getting MR, at 16:30 if MRI is positive for acute stroke we will admit otherwise we will follow up on outpatient basis, his care will be signed out to incoming provider. I assumed care from Dr. Pickard. Patient's MRI resulted. He does have signs of stroke on the right basal ganglia. Appear to be acute in nature. Patient's last known normal was approximately 21:00 on 02/22/25 He woke up around midnight to use the bathroom when he noticed that his right vision is gone. Patient is able to only see shadows. He can not see any light or shapes. On reexamination patient has no extremity changes no extremity weakness on exam. He does not have any further neurological deficit. We will plan to admit patient for secondary stroke workup. Differential Diagnosis Differential Diagnoses: The differential diagnosis associated with the presentation includes (Retinal detachment, vitreous hemorrhage, CRVO, CRAO, diabetic macular edema diabetic retinopathy, giant cell arteritis) Admission/Observation Consideration of admission/observation: Escalation of care including admission/observation considered Lab Data MDM Lab Attestation statement: I reviewed the patient's lab results. 02/24/25 04:31 02/23/25 10:30 Labs: Lab Results 02/23/25 Range/Units 10:30 WBC 4.6 L (4.8-10.8) X10*3/uL RBC 4.96 (4.60-5.80) X10*6/uL Hgb 15.2 (14.0-18.0) g/dl Hct 41.4 L (42.0-52.0) % MCV 83.5 (80.0-98.0) fL MCH 30.6 (27.0-33.0) pg MCHC 36.7 H (31.0-36.0) g/dl RDW 12.4 (11.0-16.0) % Plt Count 189 (160-400) X10*3/uL MPV 8.7 L (9.4-12.4) fL Immature Gran % (Auto) 0.2 (0.0-0.4) % Neut % (Auto) 56.5 (45-73) % Lymph % (Auto) 27.2 (20-40) % [place] % (Auto) 9.6 (2-11) % Eos % (Auto) 5.4 H (0-4) % Baso % (Auto) 1.1 (0-2) % Lymph # (Auto) 1.3 (1.2-4.9) X10*3/uL [place] # (Auto) 0.4 (0.1-1.2) X10*3/uL Eos # (Auto) 0.3 (0.0-0.4) X10*3/uL Baso # (Auto) 0.1 (0.0-0.2) X10*3/uL Abs Immat Gran (auto) 0.01 (0.00-0.03) X10*3/uL Absolute Neuts (auto) 2.6 (2.0-8.3) x10*3/uL Absolute Nucleated RBC 0.000 (0.0-0.012) X10*3/uL Nucleated RBC % (auto) 0.0 (0.0-0.2) /100WBC PT 10.5 L (10.9-12.4) SEC INR 0.9 (0.9-1.1) Sodium 131 L (135-145) mmol/L Potassium 3.6 (3.3-5.1) mmol/L Chloride 95 L (96-108) mmol/L Carbon Dioxide 25 (22-29) mmol/L Anion Gap 15 (12-20) BUN 10 (9-16) mg/dL Creatinine 0.65 (0.5-1.4) mg/dL Estim Creat Clear Calc 98.1 Estimated GFR > 60 Random Glucose 88 (60-115) mg/dL Calcium 9.1 (8.4-10.2) mg/dL Independent Interpretation I performed an independent interpretation of an: MRI Radiology Impression Discussion of test interpretation with radiology: I have reviewed the radiologist's reading. Radiologist Impression: CT/CT head for STROKE IMPRESSION: Extensive white matter disease likely related to small vessel occlusive disease with multifocal old lacunar in and encephalomalacia, right parietal occipital. Superimposed acute nonhemorrhagic ischemia cannot be entirely excluded. No acute intracranial hemorrhage. Atherosclerosis disease, intracranial. Global cerebral atroph Procedures Ultrasound ED POC Ultrasound: EMERGENCY ULTRASOUND REPORT?Point of Care Ocular Indication: Anterior Chamber: Lenses in place Posterior Chamber: No detachment, no hemorrhage Orbit: Nerve sheath diameter 4.4 mm Impression: No retinal detachment, no vitreous hemorrhage Performed by: Dr. Alvarez Critical Care Time Critical Care Time Critical Care Time: Yes Total Critical Care Time: 55 Attestation: Time is exclusive of separately billable procedures. Time includes: direct patient care, patient reassessment, coordination of patient care, interpretation of data (laboratory data, pulse oximetry, arterial blood gases and chest xrays), review of patient's medical records, medical consultation and documentation of patient care. Procedures excluded from critical care time: central intravenous line placement and electrocardiography. Discharge Plan Discharge Clinical Impression: Sudden visual loss of right eye, Acute stroke of basal ganglia Patient Disposition: Admitted As Inpatient Interventions: Admission Worksheet (ED) Last Done: 02/24/25 14:00 Discharge Date/Time: 02/24/25 14:39
[2025-02-23] MEDS: iohexoL 350 MG/ML 75 ML INFUS..BTL 70 ML IV (10:16)
[2025-02-23 10:34] LABS: MANUAL DIFF FLAG NO
[2025-02-23 10:35] LABS: Hematocrit 41.4 % (42.0-52.0); Hemoglobin 15.2 g/dl (14.0-18.0); Imm Gran Abs Auto 0.01 X10*3/uL (0.00-0.03); Imm Gran Pct Auto 0.2 % (0.0-0.4); Lymphocytes Absolute Auto 1.3 X10*3/uL (1.2-4.9); Mean Corpuscular HGB Conc 36.7 g/dl (31.0-36.0); Mean Corpuscular Hemoglobin 30.6 pg (27.0-33.0); Mean Corpuscular Volume 83.5 fL (80.0-98.0); NRBC Abs Auto 0.000 X10*3/uL (0.0-0.012); NRBC Pct Auto 0.0 /100WBC (0.0-0.2); Platelet Count 189 X10*3/uL (160-400); Red Blood Count 4.96 X10*6/uL (4.60-5.80); White Blood Count 4.6 X10*3/uL (4.8-10.8)
[2025-02-23 10:44] LABS: INTERNATIONAL NORM RATIO 0.9 (0.9-1.1); Prothrombin Time 10.5 SEC (10.9-12.4)
[2025-02-23 10:52] LABS: Anion Gap 15 (12-20); Blood Urea Nitrogen 10 mg/dL (9-16); Calcium 9.1 mg/dL (8.4-10.2); Carbon Dioxide 25 mmol/L (22-29); Chloride 95 mmol/L (96-108); Creatinine Clr Calc Pharmacy 98.1; Estimated Glomerular Filt Rate > 60; Potassium 3.6 mmol/L (3.3-5.1); Sodium 131 mmol/L (135-145)
[2025-02-23 13:23] VITALS: BP 153/88; PULSE 106; RESP 18; TEMP 36.8; O2SAT 97
[2025-02-23 15:42] VITALS: BP 146/95; PULSE 106; RESP 16; TEMP 36.6; O2SAT 96
--- NOTE | 2025-02-23 15:45 | PC.NURSE ---
assumed care of patient at 1500, patient is awake and alert, is at bedside. patient requested gingerale, ED provider stated ok. bedside nursing swallow completed and passed. patient is able to follow commands, is alert and oriented x4 face is symmetrical. states his right eye has been seeing shadows since this morning, and occasional light flashing. patient requested pre medication for mri, ED provider notified.
[2025-02-23 17:56] VITALS: BP 138/90; PULSE 94; RESP 18; TEMP 36.8; O2SAT 94
--- NOTE | 2025-02-23 17:56 | PM.IMHP ---
History of Present Illness Date of Service: 02/23/25 Chief Complaint: rigth eye vision loss 74M PMH hypertension, chronic back pain, hyperlipidemia presented with right eye vision loss. Patient states that he was well when he went to bed around 21:00 night prior to presentation. He woke up unable to see out of his right eye so he came to ED. in ED CTA head was negative, CTA head and neck showed a 60% right ICA stenosis. MRI of the brain showed restricted diffusion consistent with acute ischemia involving the superior aspect of the right basal ganglia extending to the mo radiata. Patient has no other neuro symptoms. Review of Systems Review of Systems: Yes all other systems are reviewed and are negative [facility] Medical History Dyspnea on exertion Osteoarthritis Erectile dysfunction Hypercholesteremia Diskitis Tubular adenoma SIAD (syndrome of inappropriate antidiuresis) Thoracic aortic aneurysm Constipation CAD (coronary artery disease) History of rib fracture Hard of hearing History of MRSA infection Back pain GERD (gastroesophageal reflux disease) Weakness Habitual snoring High cholesterol Hypertension Surgical History History of esophagogastroduodenoscopy (EGD) Hx of tonsillectomy History of total right knee replacement Hx of cataract extraction H/O colonoscopy Knee joint replacement status Social History Are you a primary ocular care aide to a significant other at home: No Do you presently have visiting nurse or other home services: No Alcohol intake: current Alcohol intake frequency: 3 or more drinks per day Alcohol type: beer Patient Tobacco Use Status: Former Tobacco user Use of substances other than those prescribed or required for medical reasons: No Advance Directives: Yes Advance Directives Information Provided: No Advance Directives on File: No Current occupational status: 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 Meds Allergies Allergy/AdvReac Type Severity Reaction Status Date / Time Penicillins AdvReac swollen Verified 02/23/25 08:57 Active Medications: Current Medications Acetaminophen (Acetaminophen 325 Mg Tablet) 650 mg PO Q6H PRN PRN Reason: Pain, Mild 1-3,fever,headache Aspirin (Aspirin Enteric Coated 81 Mg Tablet.Dr) 81 mg PO DAILY LAURI Atorvastatin Calcium (Atorvastatin Calcium 80 Mg Tablet) 80 mg PO BEDTIME LAURI Calcium Carbonate (Calcium Carbonate 750 Mg Tab.Chew) 750 mg PO Q4H PRN PRN Reason: Heartburn Enoxaparin Sodium (Enoxaparin Sodium 40 Mg/0.4 Ml Syringe) 40 mg SUBCUT Q24H LAURI Magnesium Hydroxide (Milk Of Magnesia 30 Ml Oral.Susp) 30 ml PO DAILY PRN PRN Reason: Constipation Melatonin (Melatonin 3 Mg Tablet) 6 mg PO BEDTIME PRN PRN Reason: Insomnia Sodium Chloride (0.9 % Sodium Chloride Flush 3 Ml Syringe) 3 ml IVFLUSH QSHIFT [facility] Home Medications ?Medication ?Instructions ?Recorded ?Confirmed ?Last Taken ?Type atorvastatin 40 mg tablet 40 mg PO DAILY 06/03/22 07/09/24 Unknown History omeprazole 20 mg capsule,delayed 20 mg PO DAILY 06/03/22 07/09/24 08/30/23 History release amlodipine 10 mg tablet 10 mg PO DAILY 08/16/23 07/09/24 08/30/23 History tamsulosin 0.4 mg capsule 0.4 mg PO DAILY 08/16/23 07/09/24 08/30/23 History furosemide 20 mg tablet 20 mg PO DAILY 08/20/23 07/09/24 Unknown History sodium chloride 1,000 mg soluble 1,000 mg PO TID 08/20/23 07/09/24 Unknown History tablet Physical Exam Vital Signs and Narrative: Vital Signs: Last Vital Signs Temp 97.9 F 02/23/25 15:42 Pulse 106 H 02/23/25 15:42 Resp 16 02/23/25 15:42 BP 146/95 H 02/23/25 15:42 Pulse Ox 96 02/23/25 15:42 O2 Del Method Room Air 02/23/25 15:42 BMI result Body Mass Index 25.4 General: AO X 3, no acute distress Resp: CTA bilateral, no accessory muscles used CVS: S1,S2,RRR GI: soft, non tender, non distended Neuro: motor grossly intact, alert, right vision loss Psych: appropriate affect, appropriate insight Results Labs 02/23/25 10:30 02/23/25 10:30 Labs: Laboratory Results - last 24 hr 02/23/25 10:30 MCV 83.5 MCH 30.6 MCHC 36.7 H RDW 12.4 Plt Count 189 MPV 8.7 L Immature Gran % (Auto) 0.2 Neut % (Auto) 56.5 Lymph % (Auto) 27.2 Dundy % (Auto) 9.6 Eos % (Auto) 5.4 H Baso % (Auto) 1.1 Lymph # (Auto) 1.3 Dundy # (Auto) 0.4 Eos # (Auto) 0.3 Baso # (Auto) 0.1 Abs Immat Gran (auto) 0.01 Absolute Neuts (auto) 2.6 Absolute Nucleated RBC 0.000 Nucleated RBC % (auto) 0.0 PT 10.5 L INR 0.9 Anion Gap 15 Estim Creat Clear Calc 98.1 Estimated GFR > 60 Random Glucose 88 Calcium 9.1 Imaging Radiologist's Impressions: Impressions Head CT 02/23/25 09:54 IMPRESSION: Extensive white matter disease likely related to small vessel occlusive disease with multifocal old lacunar in and encephalomalacia, right parietal occipital. Superimposed acute nonhemorrhagic ischemia cannot be entirely excluded. No acute intracranial hemorrhage. Atherosclerosis disease, intracranial. Global cerebral atrophy. This critical result was discussed with the emergency physician the [facility] Dr. Steven Alvarez at 10:36 AM hours on February 23, 2025. It was ascertained that the content and urgency of the report was understood at the time of direct communication. Electronically signed by: Mark Burger MD 02/23/2025 10:37 AM EDT RP Head/Neck CTA 02/23/25 09:54 IMPRESSION: No gross main cerebral artery occlusion or embolus or gross cerebral aneurysm. origin, right [facility]. Atherosclerosis disease, intracranial and extracranial. Poor visualization of the right P3 segment. 60% stenosis right ICA. No dissection. Multiple low density/cystic thyroid nodules. This critical test result is communicated to: An emergency physician Dr. Steven Alvarez on February 23, 2023 at 10:30 AM. Electronically signed by: Mark Burger MD 02/23/2025 10:51 AM EDT RP Assessment and Plan (1) Sudden visual loss of right eye: Status: Acute Plan 74M PMH hypertension, chronic back pain, hyperlipidemia presented with right eye vision loss Acute CVA of right basal ganglia with 60% BHARATI stenosis Does not match with patient's symptoms Aspirin, statin Neuro eval Echo, tele, check lipid panel, PT OT No signs of dysphagia Hypertension Permissive hypertension DVT prophylaxis with Lovenox Full Code Given patient's risk factors and significant findings on MRI high-risk for recurrent stroke in the next 48 hours therefore expected require at least 2 midnights inpatient Quality Stroke Does the patient have a stroke diagnosis?: Yes Reason for No Anti-thrombotic by Day Two: N/A - Med Ordered VTE Prior VTE?: No VTE Risk Level:: Medical - moderate - high VTE Device Contraindication: Treatment Not Indicated VTE Drug Contraindication: N/A - Med Ordered
--- NOTE | 2025-02-23 18:12 | PC.NURSE ---
patient returned from MRI, alert and oriented, pupils bilat equal to light. patient states no changes in vision.
--- NOTE | 2025-02-23 18:15 | PHA.MEDREC ---
Pharmacy Consult ? Medication Reconciliation Pharmacy has completed the medication reconciliation. Spoke to patient to confirm med list. Patient was sure that he is still taking atorvastatin 40 mg (even though I called [facility] and they confirmed the last tow picker was on 06/01/2023) and he takes sodium chloride 1 tablet twice a day (picked up 90 tablets from [facility] on 01/07/25). Last dose of medication was today 02/23/25.
[2025-02-23 20:28] VITALS: BP 146/85; PULSE 90; RESP 19; TEMP 36.9; O2SAT 94
--- NOTE | 2025-02-23 20:58 | PC.NURSE ---
assumed care of pt, respirations even and unlabored. Pt resting.
[2025-02-23] MEDS: Sodium Chloride Tab 1 GM TABLET PO (22:16)
[2025-02-24] VITALS (10 sets, daily range): BP systolic 122–158; BP diastolic 66–91; PULSE 72–106; RESP 13–22; TEMP 36.2–36.8; O2SAT 92–98; BMI 23.9
[2025-02-24] MEDS: 0.9 % Sodium Chloride Flush 3 ML SYRINGE IVFLUSH ×4 (01:44→23:59)
[2025-02-24 05:09] LABS: Hematocrit 41.2 % (42.0-52.0); Hemoglobin 14.8 g/dl (14.0-18.0); Mean Corpuscular HGB Conc 35.9 g/dl (31.0-36.0); Mean Corpuscular Hemoglobin 30.2 pg (27.0-33.0); Mean Corpuscular Volume 84.1 fL (80.0-98.0); NRBC Abs Auto 0.000 X10*3/uL (0.0-0.012); NRBC Pct Auto 0.0 /100WBC (0.0-0.2); Platelet Count 202 X10*3/uL (160-400); Red Blood Count 4.90 X10*6/uL (4.60-5.80); White Blood Count 6.8 X10*3/uL (4.8-10.8)
[2025-02-24 05:24] LABS: Cholesterol 276 mg/dL (<200); HDL Cholesterol 94 mg/dL (>40); Triglycerides 115 mg/dL (<150)
--- NOTE | 2025-02-24 06:12 | PC.NURSE ---
pt medicated per MAR
--- NOTE | 2025-02-24 07:00 | CA_ITS ---
Transthoracic Echocardiogram Patient (Last, First, Middle): Luis Angel Scott J Gender: Male Date of : 1950 Age: 74 Procedure Date: 02/24/2025 Procedure Type: Transthoracic Echocardiogram Location: ER Height: 175.26 cm Weight: 78.02 kg BSA: 1.94 m2 Heart Rate: 81 bpm BP: 122 / 66 mmHg Flamer Sealer: SB/RC Referring MD: Gregory Tyson MD Symptoms: cva Study Quality: Adequate ECG Rhythm: Sinus Conclusions: - The left ventricular systolic function is mildly decreased. The calculated ejection fraction is 48% by biplane method. - Contrast study for right to left shunting is mildly positive. - No obvious valvular pathology seen on this study. - There is moderate dilatation of the sinuses of Valsalva measuring 4.60 cm and moderate dilatation of the ascending aorta measuring 4.50 cm. Findings Left Ventricle Normal left ventricular cavity size. There is normal left ventricular wall thickness. The left ventricular systolic function is mildly decreased. The calculated ejection fraction is 48% by biplane method. There is mild global hypokinesis. Evidence suggests grade I (mild) diastolic dysfunction. Right Ventricle Normal right ventricular cavity size and systolic function. Atria The left atrium is mildly dilated. Contrast study for right to left shunting is mildly positive. Contrast study for right to left shunting is mildly positive with Valsalva maneuver. Patent foramen ovale detected using by contrast. The right atrium is normal in size. Aortic Valve There is a normal trileaflet aortic valve. There is mild calcification of the aortic valve. There is no aortic valve stenosis. There is trace (trivial) aortic valve regurgitation. Mitral Valve There is mild anterior mitral leaflet thickening. There is mild mitral valve regurgitation. There is no mitral valve stenosis. Pulmonic Valve The pulmonic valve is likely normal. Tricuspid Valve There is no tricuspid valve regurgitation. Tricuspid regurgitation envelope is inadequate for calculation of right ventricular systolic pressure. Great Vessels There is moderate dilatation of the sinuses of Valsalva measuring 4.60 cm and moderate dilatation of the ascending aorta measuring 4.50 cm. Venous The inferior vena cava is normal in size and collapses greater than 50% with inspiration. Pericardium/Pleural There is no evidence of pericardial effusion. Prior Study Comparison No prior study available for comparison. Recommendations, Care & Conclusions No obvious valvular pathology seen on this study. Measurements 2D Linear Measurements IVSd: 0.73 0.6-0.9/0.6-1.0 cm LVIDd: 5.54 3.9-5.3/4.2-5.9 cm LVIDd Index: 2.86 2.4-3.2/2.2-3.1 cm/m2 LVIDs: 4.18 2.0-3.6 cm LVPWd: 0.79 0.7-1.1 cm LA Diam: 3.90 2.7-3.8/3.0-4.0 cm LAIDs Index: 2.01 1.5-2.3 cm/m2 LV Mass: 189.29 67-162/88-224 g LV Mass Index: 97.57 43-95/49-115 g/m2 LVOT Diam: 2.40 3.0+(-)1.3 cm 2D Systolic Function EF 4C: 43.30 >55% EF 2C: 49.20 >55% EF BiP: 48.20 >55% Mitral Valve MV Pk E: 0.77 MV PK A: 0.57 MV Decel Time: 112.00 E/A: 1.30 E'Lateral: 5.33 E'Medial: 3.81 E/E' Med: 20.20 E/E' Lat: 14.50 PHT: 33.00 MVA PHT: 6.67 Decel Mayes: 6.87 Aortic Valve AoV Pk Manny: 1.14 AoV Mn Manny: 0.85 AoV VTI: 0.23 AoV Pk Grad: 5.00 Aov Mn Grad: 3.00 KAMILLE Cont.VTI: 3.42 AI Pk Manny: 4.56 AI Mayes: 3.33 LVOT LVOT Pk Manyn: 0.86 LVOT Mn Manny: 0.57 LVOT VTI: 0.17 LVOT Pk Grad: 3.00 LVOT Mn Grad: 2.00 LVOT Diam: 2.40 LVOT Area: 4.52 Diastolic Function MV Pk E: 0.77 MV Pk A: 0.57 E/A: 1.30 E'Medial: 3.81 E/E' Med: 20.20 E' Laterial: 5.33 E/E' Lat: 14.50 Right Ventricle TAPSE (mm): 22.90 TVS' Manny: 16.90 Tricuspid Valve RA Press: 3.00 Great Vessels Aorta Sinus of Valsalva: 4.60 2.0-3.5 cm Ao Asc: 4.50 2.1-3.4 cm Pulmonary Valve PV Pk Manny: 0.90 Peak PV Grad: 3.00 Updated in Other Vendor System with Status of Final Jonathan Manley MD electronically signed on 02/24/2025 4:26:58 PM with status of Final
--- NOTE | 2025-02-24 07:03 | PC.NURSE ---
Assumed care of patient. Pt is A+OX4, calm, cooperative. Pt continues to have blurred vision in the right eye, no changes or other complaints. Pt denies pain at this time. RR even and unalabored, denies SOB or CP.
--- NOTE | 2025-02-24 09:04 | MHC.CM.PN ---
CM met with Patient at bedside, in the ED, and addressed IMM with him, providing Patient with the original and a copy will be placed on the chart. Patient lives with his /HCP/[place], who will transport to home at dc if dc is to home. Patient may benefit from a PT Eval to assist with disposition (home new VNA VS STR); CM has initiated and will follow for dc planning. PCP is Dr. Shabana Newton.
[2025-02-24] MEDS: Aspirin Enteric Coated 81 MG TABLET.DR PO (09:26)
[2025-02-24] MEDS: Sodium Chloride Tab 1 GM TABLET PO ×2 (09:26→21:45)
--- NOTE | 2025-02-24 10:13 | P.PNIM_ITS ---
Subjective Subjective Date of Service: 02/24/25 Interval History: still with right eye vision loss, no changes Physical Exam 2 Exam: Exam: General: AO X 3, no acute distress Resp: CTA bilateral, no accessory muscles used CVS: S1,S2,RRR GI: soft, non tender, non distended Neuro: motor grossly intact, alert Psych: appropriate affect, appropriate insight right eye vision loss Vital Signs: Vital Signs: Last Vital Signs Temp 97.7 F 02/24/25 08:12 Pulse 85 02/24/25 09:25 Resp 17 02/24/25 09:25 BP 139/86 02/24/25 09:25 Pulse Ox 95 02/24/25 09:25 O2 Del Method Room Air 02/24/25 09:25 BMI result Body Mass Index 25.4 Objective Data Active Medications Acetaminophen (Acetaminophen 325 Mg Tablet) 650 mg PO Q6H PRN PRN Reason: Pain, Mild 1-3,fever,headache Aspirin (Aspirin Enteric Coated 81 Mg Tablet.) 81 mg PO DAILY ON LICENSE OF [facility] Last Admin: 02/24/25 09:26 Dose: 81 mg Documented By: MARIA ELENA Atorvastatin Calcium (Atorvastatin Calcium 80 Mg Tablet) 80 mg PO BEDTIME ON LICENSE OF [facility] Last Admin: 02/23/25 22:16 Dose: 80 mg Documented By: ZAKIA Calcium Carbonate (Calcium Carbonate 750 Mg Tab.Chew) 750 mg PO Q4H PRN PRN Reason: Heartburn Enoxaparin Sodium (Enoxaparin Sodium 40 Mg/0.4 Ml Syringe) 40 mg SUBCUT Q24H ON LICENSE OF [facility] Last Admin: 02/24/25 09:26 Dose: 40 mg Documented By: MARIA ELENA Magnesium Hydroxide (Milk Of Magnesia 30 Ml Oral.Susp) 30 ml PO DAILY PRN PRN Reason: Constipation Melatonin (Melatonin 3 Mg Tablet) 6 mg PO BEDTIME PRN PRN Reason: Insomnia Omeprazole (Omeprazole 20 Mg Capsule.) 20 mg PO DAILY@0630 ON LICENSE OF [facility] Last Admin: 02/24/25 06:09 Dose: 20 mg Documented By: ZAKIA Oxycodone HCl (Oxycodone Hcl Immed Release 5 Mg Tablet) 5 mg PO BID PRN PRN Reason: severe pain (scale score 7-10) Sodium Chloride (0.9 % Sodium Chloride Flush 3 Ml Syringe) 3 ml IVFLUSH QSHIFT ON LICENSE OF [facility] Last Admin: 02/24/25 07:06 Dose: 3 ml Documented By: MARIA ELENA Sodium Chloride (Sodium Chloride Tab 1 Gm Tablet) 1 gm PO BID ON LICENSE OF [facility] Last Admin: 02/24/25 09:26 Dose: 1 gm Documented By: MARIA ELENA Tamsulosin HCl (Tamsulosin Hcl 0.4 Mg Capsule) 0.4 mg PO DAILY ON LICENSE OF [facility] Last Admin: 02/24/25 09:26 Dose: 0.4 mg Documented By: MARIA ELENA Labs 02/24/25 04:31 02/23/25 10:30 Labs: Laboratory Results - last 24 hr 02/23/25 02/24/25 10:30 04:31 MCV 83.5 84.1 MCH 30.6 30.2 MCHC 36.7 H 35.9 RDW 12.4 12.5 Plt Count 189 202 MPV 8.7 L 9.4 Immature Gran % (Auto) 0.2 Neut % (Auto) 56.5 Lymph % (Auto) 27.2 Hinds % (Auto) 9.6 Eos % (Auto) 5.4 H Baso % (Auto) 1.1 Lymph # (Auto) 1.3 Hinds # (Auto) 0.4 Eos # (Auto) 0.3 Baso # (Auto) 0.1 Abs Immat Gran (auto) 0.01 Absolute Neuts (auto) 2.6 Absolute Nucleated RBC 0.000 0.000 Nucleated RBC % (auto) 0.0 0.0 PT 10.5 L INR 0.9 Anion Gap 15 Estim Creat Clear Calc 98.1 Estimated GFR > 60 Random Glucose 88 Calcium 9.1 Total Creatine Kinase 54 Triglycerides 115 Cholesterol 276 H LDL Cholesterol, Calc 159 H HDL Cholesterol 94 Assessment and Plan (1) Sudden visual loss of right eye: Status: Acute Plan 74M PMH hypertension, chronic back pain, hyperlipidemia presented with right eye vision loss 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
--- NOTE | 2025-02-24 11:28 | P.CNNE_ITS ---
History of Present Illness Data of Consult Service Date: 02/24/25 Primary Care Provider: Shabana Newton MD [facility] Reason for consult: Stroke This is a 74M with h/o hypertension, chronic back pain, hyperlipidemia, who presented with vision loss in the right eye upon awakening in the night. He was well when he went to bed around 21:00 night prior to presentation. He woke up unable to see out of his right eye so he came to ED. In ED his CTA head was negative, CTA head and neck showed a 60% right ICA stenosis. MRI of the brain showed restricted diffusion consistent with acute ischemia involving the superior aspect of the right basal ganglia extending to the mo radiata and internal capsule which does not correlate with his right eye Sx, and microvascular changes.. Patient has no other neuro symptoms. No previous h/o stroke. [facility] Past Medical History Medical History Dyspnea on exertion Osteoarthritis Erectile dysfunction Hypercholesteremia Diskitis Tubular adenoma SIAD (syndrome of inappropriate antidiuresis) Thoracic aortic aneurysm Constipation CAD (coronary artery disease) History of rib fracture Hard of hearing History of MRSA infection Back pain GERD (gastroesophageal reflux disease) Weakness Habitual snoring High cholesterol Hypertension Surgical History Surgical History History of esophagogastroduodenoscopy (EGD) Hx of tonsillectomy History of total right knee replacement Hx of cataract extraction H/O colonoscopy Knee joint replacement status Social History Social History Are you a primary urgent care physician assistant to a significant other at home: No Do you presently have visiting nurse or other home services: No Alcohol intake: current Alcohol intake frequency: 3 or more drinks per day Alcohol type: beer Patient Tobacco Use Status: Former Tobacco user Use of substances other than those prescribed or required for medical reasons: No Advance Directives: Yes Advance Directives Information Provided: No Advance Directives on File: No Nutrition Risks: No Nutritional Risk service: No Current occupational status: 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 Meds Allergies Allergy/AdvReac Type Severity Reaction Status Date / Time Penicillins AdvReac swollen Verified 02/23/25 08:57 Active Medications: Current Medications Acetaminophen (Acetaminophen 325 Mg Tablet) 650 mg PO Q6H PRN PRN Reason: Pain, Mild 1-3,fever,headache Aspirin (Aspirin Enteric Coated 81 Mg Tablet.) 81 mg PO DAILY [facility] Last Admin: 02/24/25 09:26 Dose: 81 mg Atorvastatin Calcium (Atorvastatin Calcium 80 Mg Tablet) 80 mg PO BEDTIME [facility] Last Admin: 02/23/25 22:16 Dose: 80 mg Calcium Carbonate (Calcium Carbonate 750 Mg Tab.Chew) 750 mg PO Q4H PRN PRN Reason: Heartburn Enoxaparin Sodium (Enoxaparin Sodium 40 Mg/0.4 Ml Syringe) 40 mg SUBCUT Q24H [facility] Last Admin: 02/24/25 09:26 Dose: 40 mg Magnesium Hydroxide (Milk Of Magnesia 30 Ml Oral.Susp) 30 ml PO DAILY PRN PRN Reason: Constipation Melatonin (Melatonin 3 Mg Tablet) 6 mg PO BEDTIME PRN PRN Reason: Insomnia Omeprazole (Omeprazole 20 Mg Capsule.) 20 mg PO DAILY@0630 [facility] Last Admin: 02/24/25 06:09 Dose: 20 mg Oxycodone HCl (Oxycodone Hcl Immed Release 5 Mg Tablet) 5 mg PO BID PRN PRN Reason: severe pain (scale score 7-10) Sodium Chloride (0.9 % Sodium Chloride Flush 3 Ml Syringe) 3 ml IVFLUSH QSHIFT [facility] Last Admin: 02/24/25 07:06 Dose: 3 ml Sodium Chloride (Sodium Chloride Tab 1 Gm Tablet) 1 gm PO BID [facility] Last Admin: 02/24/25 09:26 Dose: 1 gm Tamsulosin HCl (Tamsulosin Hcl 0.4 Mg Capsule) 0.4 mg PO DAILY [facility] Last Admin: 02/24/25 09:26 Dose: 0.4 mg Home Medications ?Medication ?Instructions ?Recorded ?Confirmed ?Last Taken ?Type atorvastatin 40 mg tablet 40 mg PO DAILY 06/03/2202/0902/23/25 History omeprazole 20 mg capsule,delayed 20 mg PO DAILY 02/23/25 02/23/25 History release amlodipine 10 mg tablet 10 mg PO DAILY 08/16/2302/0902/23/25 History tamsulosin 0.4 mg capsule 0.4 mg PO DAILY 08/16/2302/23/25 History sodium chloride 1,000 mg soluble 1,000 mg PO BID 08/1902/23/25 02/23/25 History tablet Physical Exam 2 Vital Signs: Vital Signs: Last Vital Signs Temp 97.7 F 02/24/25 08:12 Pulse 82 02/24/25 10:23 Resp 13 02/24/25 10:23 BP 139/86 02/24/25 10:23 Pulse Ox 96 02/24/25 10:23 O2 Del Method Room Air 02/24/25 10:23 BMI result Body Mass Index 25.4 Neuro: Other: He is alert and oriented with normal intellectual functions periods speech and language functions are normal. He has diminished vision in the right eye with normal vision in the left eye. Visual black are full to confrontation. There is no facial droop. He has right shoulder abduction weakness from a previous shoulder dislocation and rotator cuff tear. There is no drift of the upper extremities no weakness in the lower extremities. Symmetrical reflexes plantar responses are flexor Results Labs 02/24/25 04:31 02/23/25 10:30 Labs: Short CBC 02/24/25 Range/Units 04:31 WBC 6.8 (4.8-10.8) X10*3/uL Hgb 14.8 (14.0-18.0) g/dl Hct 41.2 L (42.0-52.0) % Plt Count 202 (160-400) X10*3/uL Cardiac Enzymes 02/24/25 Range/Units 04:31 Total Creatine Kinase 54 (38-174) U/L Assessment and Plan (1) Central retinal artery occlusion of right eye: Status: Acute (2) Acute stroke of basal ganglia: Status: Acute Plan His loss of vision in the right eye does not correlate clinically with the acute to subacute right basal ganglia microvascular stroke. I have personally reviewed his imaging studies Recommendation check sed rate. Echocardiogram with bubble study. Ophthalmology consultation. Control of blood pressure. Aspirin 81 mg a day. His CTA does not show any significant stenosis in the neck or intracranial circulation. Procedures Date of Service Date of Service: 02/24/25
[2025-02-24] MEDS: oxyCODONE HCl Immed Release 5 MG TABLET PO ×2 (12:08→22:50)
[2025-02-25] VITALS: BP 127/86; PULSE 79; RESP 16; TEMP 36.4; O2SAT 95
--- NOTE | 2025-02-25 | ECG_ITS ---
Test Reason : low ef Blood Pressure : */* mmHG Vent. Rate : 86 BPM Atrial Rate : 86 BPM P-R Int : 158 ms QRS Dur : 88 ms QT Int : 380 ms P-R-T Axes : 38 -34 24 degrees QTcB Int : 454 ms Normal sinus rhythm Left axis deviation Minimal voltage criteria for LVH, may be normal variant ( R in aVL ) Abnormal ECG When compared with ECG of 28-May-2023 12:28, No significant change was found Referred By: Aram Castillo Electronically Signed By: SADA BELTRAN
[2025-02-25 03:32] VITALS: BP 149/79; PULSE 73; RESP 16; TEMP 36.2; O2SAT 97
[2025-02-25 07:17] VITALS: BP 162/88; PULSE 78; RESP 18; TEMP 36.2; O2SAT 96
[2025-02-25] MEDS: Aspirin Enteric Coated 81 MG TABLET.DR PO (09:35)
[2025-02-25] MEDS: Sodium Chloride Tab 1 GM TABLET PO (09:35)
[2025-02-25] MEDS: 0.9 % Sodium Chloride Flush 3 ML SYRINGE IVFLUSH (09:35)
[2025-02-25 10:27] LABS: Troponin-I High Sensitivity < 2.7 ng/L (<3.5-35.0)
[2025-02-25 11:22] VITALS: BP 140/85; PULSE 92; RESP 18; TEMP 36.2; O2SAT 94
--- NOTE | 2025-02-25 14:07 | ECG_ITS ---
Test Reason : LOW EF Blood Pressure : */* mmHG Vent. Rate : 96 BPM Atrial Rate : 96 BPM P-R Int : 164 ms QRS Dur : 80 ms QT Int : 354 ms P-R-T Axes : 26 -33 23 degrees QTcB Int : 447 ms Normal sinus rhythm Left axis deviation Moderate voltage criteria for LVH, may be normal variant ( R in aVL , [place] product ) Abnormal ECG When compared with ECG of 25-Feb-2025 10:25, No significant change was found Referred By: Aram Castillo Electronically Signed By: SADA BELTRAN
--- NOTE | 2025-02-25 14:55 | P.DS_ITS ---
DS: Providers Provider Date of Service: 02/25/25 Date of admission: 02/23/25 17:40 Date of discharge: 02/25/25 Primary care physician: Shabana Newton MD Consults: 02/23/25 17:45 Consult to Neurology Routine Consulting Provider: Hunter Wu Reason for consultation: cva 02/25/25 08:38 Consult to Cardiology Routine Consulting Provider: [facility] Reason for consultation: new cva ,low ef DS: Diagnosis Discharge Diagnosis (1) Central retinal artery occlusion of right eye: Status: Acute (2) Acute stroke of basal ganglia: Status: Acute DS: Summary Hospital Course Hospital Course: HPI:74M PMH hypertension, chronic back pain, hyperlipidemia presented with right eye vision loss. Patient states that he was well when he went to bed around 21:00 night prior to presentation. He woke up unable to see out of his right eye so he came to ED. in ED CTA head was negative, CTA head and neck showed a 60% right ICA stenosis. MRI of the brain showed restricted diffusion consistent with acute ischemia involving the superior aspect of the right basal ganglia extending to the mo radiata. Patient has no other neuro symptoms. Hospital course: Patient was admitted to the hospital because of right eye vision loss: Patient had further workup including CTA , MRI head: Patient has acute to subacute right basal ganglia microvascular stroke, seen by Neurology- patient likely has acute to subacute right basal ganglia stroke-patient was started on aspirin, statin adjusted. In addition echo was done:The left ventricular systolic function is mildly decreased. The calculated ejection fraction is 48% by biplane method. Contrast study for right to left shunting is mildly positive. No obvious valvular pathology seen on this study. There is moderate dilatation of the sinuses of Valsalva measuring 4.60 cm and moderate dilatation of the ascending aorta measuring 4.50 cm. Above was reviewed with Neurology-for CVA management is as above, for right eye vision loss- imaging studies/stroke unlikely explains, ESR and CRP normal, patient denies any headache or any pain. Discussed with cardiology: Patient is to follow-up out patiently for above echo findings. Also patient is to follow-up with Ophthalmology Dr. Orta's office on Sunday for ophthalmology evaluation.vision somewhat improving. Above was discussed with the patient and his in detail length both understand and in agreement with the above plan, time spent 45 minute. Time Attestation Total time managing care of this patient today: 45 mintues. Discharge Coordination Time (in mins): 45 min Quality: Safe Use of Opioids Does Pt have an Active Cancer Diagnosis on the Problem List?: No Quality: Stroke Does the patient have a stroke diagnosis?: No Physical Exam Exam: Exam: General: AO X 3, no acute distress Eye: right eye vision somewhat improving Resp: CTA bilateral, no accessory muscles used CVS: S1,S2,RRR GI: soft, non tender, non distended Neuro: motor grossly intact, alert Vital Signs: Vital Signs: Last Vital Signs Temp 97.2 F 02/25/25 11:22 Pulse 92 02/25/25 11:22 Resp 18 02/25/25 11:22 BP 140/85 H 02/25/25 11:22 Pulse Ox 94 02/25/25 11:22 O2 Del Method Room Air 02/25/25 11:22 BMI result Body Mass Index 23.9 DS: Data Data Completed and Pending Labs on day of discharge: Laboratory Results - last 24 hr 02/25/25 02/25/25 05:46 09:47 ESR 4 Troponin I High Sens < 2.7 C-Reactive Protein 0.19 Imaging Chest x-ray: Radiologist's impression: ITS Impressions Head CT 02/23/25 09:54 IMPRESSION: Extensive white matter disease likely related to small vessel occlusive disease with multifocal old lacunar in and encephalomalacia, right parietal occipital. Superimposed acute nonhemorrhagic ischemia cannot be entirely excluded. No acute intracranial hemorrhage. Atherosclerosis disease, intracranial. Global cerebral atrophy. This critical result was discussed with the emergency physician the [facility] Dr. Steven Alvarez at 10:36 AM hours on February 23, 2025. It was ascertained that the content and urgency of the report was understood at the time of direct communication. Head/Neck CTA 02/23/25 09:54 IMPRESSION: No gross main cerebral artery occlusion or embolus or gross cerebral aneurysm. 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 Atherosclerosis disease, intracranial and extracranial. Poor visualization of the right P3 segment. 60% stenosis right ICA. No dissection. Multiple low density/cystic thyroid nodules. This critical test result is communicated to: An emergency physician Dr. Steven Alvarez on February 23, 2023 at 10:30 AM. Discharge Plan Discharge Anticipated Discharge Date/Time: 02/25/25 14:36 Patient Disposition: Home, Self-Care Discharge Diagnosis: cva ,decreased right sided vision Referrals: Shabana Newton MD [Primary Care Provider, Medical] - 1 Week Rickie Orta [Physician, Ophthalmology] - 1 day Problems: Sudden visual loss of right eye Discharge Medications: New aspirin 81 mg Tablet,Delayed Release (Dr/Ec) 81 mg PO DAILY Qty: 90 0RF Continued oxycodone 5 mg tablet 5 mg PO BID PRN (Reason: severe pain (scale score 7-10)) Qty: 14 0RF Rx Instructions: Partial Fill upon patient request. amlodipine 10 mg tablet 10 mg PO DAILY tamsulosin 0.4 mg capsule 0.4 mg PO DAILY sodium chloride 1,000 mg Tablet,Soluble 1,000 mg PO BID omeprazole 20 mg capsule,delayed release(DR/EC) 20 mg PO DAILY Changed atorvastatin 40 mg tablet 80 mg PO DAILY Qty: 180 0RF Discharge Orders: Discharge Order (Routine); Ordered 02/25/25 Ordered By: Aram Castillo Diet: Advance to usual diet Activity on Discharge: As tolerated Stand Alone Forms: Patient Portal Discharge page Print Language: Malagasy Other Ambulatory Orders: Comprehensive Met. Panel (Routine) Timeframe: 1 Week Facility: [facility] - Location: Laboratory Ordered By: Aram Castillo Activity Restrictions/Additional Instructions: Follow up with Dr. Orta on sunday , I spoke with hostess cashier that would be expecting you in the office. Please call his office sunday02/27/25 @3pm,morning speak to staff and make sure you are giving a slot to come in for evaluation. Cardiology will arrange their own appointment. Continue aspirin, adjusted statin. Monitor renal function electrolyte. Follow-up with PCP, Cardiology we will arrange their own appointment, consider outpatient neurology follow-up per PCP. Patient will also outpatient PT services with pcp. Care Plan Goals: As above. Health Concerns: As above. Plan of Treatment: As above. Assessment: As above.
--- NOTE | 2025-02-25 15:13 | MHC.CM.PN ---
Patient has been medically cleared for dc to home today, self care. (PT recommends outpatient PT, which is arranged through the PCP. IMM was addressed yesterday.
[2025-02-25 15:14] VITALS: PULSE 97; RESP 18; TEMP 36.2; O2SAT 98
== END 2025-02-25 16:37 | disposition home or self-care (01) | DRG 65 ==
LOC: HO.ED 17:40 → HO.EDOVER 17:46 → HO.IMC 02-24 13:52
PROVIDERS: Emergency Medicine; Admitting Provider Internal Medicine; Emergency Provider Student in an Organized Health Care Education/Training Program; PCP Internal Medicine; Visit Provider Internal Medicine
DX: I63.9 Cerebral infarction, unspecified (principal); H53.131 Sudden visual loss, right eye; I25.10 Atherosclerotic heart disease of native coronary artery without angina pectoris; I10 Essential (primary) hypertension; I65.21 Occlusion and stenosis of right carotid artery; R29.702 NIHSS score 2; Z87.891 Personal history of nicotine dependence; Z79.899 Other long term (current) drug therapy
CPT/HCPCS: 36415; 70450; 70496; 70498; 70551; 80048; 80061; 82550; 84484; 85025; 85027; 85610; 85652; 86140; 93005; 93306; 97161; 97165; 99285; J1650; Q9967

== ENCOUNTER → 2025-02-23 09:33 | Outpatient (BNV) | payer MEDICARE, SELFPAY | PROVIDERS: Emergency Provider Emergency Medicine; PCP Internal Medicine; Visit Provider Radiology Diagnostic Radiology | DX: I63.81 Other cerebral infarction due to occlusion or stenosis of small artery (principal); I67.82 Cerebral ischemia | CPT/HCPCS: 70450; 70496; 70498; 70551 ==

== ENCOUNTER 2025-02-23 17:40 | Outpatient (BNV) | payer MEDICARE, SELFPAY | END 2025-02-25 10:25 | PROVIDERS: Admitting Provider Internal Medicine; Emergency Provider Student in an Organized Health Care Education/Training Program; PCP Internal Medicine; Visit Provider Internal Medicine | DX: R94.31 Abnormal electrocardiogram [ECG] [EKG] (principal); I50.20 Unspecified systolic (congestive) heart failure | CPT/HCPCS: 93010 ==

== ENCOUNTER 2025-02-23 17:40 | Outpatient (BNV) | payer MEDICARE, SELFPAY | END 2025-02-24 07:00 | PROVIDERS: Admitting Provider Internal Medicine; Emergency Provider Student in an Organized Health Care Education/Training Program; PCP Internal Medicine; Visit Provider Internal Medicine | DX: Q21.12 Patent foramen ovale (principal); I71.21 Aneurysm of the ascending aorta, without rupture; I51.89 Other ill-defined heart diseases | CPT/HCPCS: 93306 ==

== ENCOUNTER → 2025-02-23 17:40 | Outpatient (BNV) | payer MEDICARE, SELFPAY | PROVIDERS: Admitting Provider Internal Medicine; Emergency Provider Student in an Organized Health Care Education/Training Program; PCP Internal Medicine; Visit Provider Internal Medicine | DX: H53.131 Sudden visual loss, right eye (principal) | CPT/HCPCS: 99223; 99232; 99239 ==

== ENCOUNTER → 2025-02-23 17:40 | Outpatient (BNV) | payer MEDICARE, SELFPAY | PROVIDERS: Admitting Provider Internal Medicine; Emergency Provider Student in an Organized Health Care Education/Training Program; PCP Internal Medicine; Visit Provider Psychiatry & Neurology Neurology | DX: H34.11 Central retinal artery occlusion, right eye (principal); I63.9 Cerebral infarction, unspecified | CPT/HCPCS: 99223 ==

== ENCOUNTER 2025-03-18 13:59 | Outpatient (AMB) | payer MEDICARE, SELFPAY ==
[2025-03-18 14:02] VITALS: BP 122/62; PULSE 102; BMI 24.7
--- NOTE | 2025-03-18 14:02 | A.OFFVIS_ITS ---
Vital Signs 03/18/25 14:02 Height 5 ft 9 in Weight 167 lb 8.821 oz BMI 24.7 BP 122/62 Blood Pressure Location Lt brachial Position Sitting Pulse 102 H Pulse Source Pulse Oximeter Intake Visit Reasons: [employer] CHANGE/ [facility] d/c Allergies Penicillins Adverse Reaction (Verified 02/23/25 08:57) swollen Medication List - Last Reconciled 03/18/25 by Jonathan Manley MD amlodipine 10 mg PO DAILY aspirin 81 mg PO DAILY atorvastatin 80 mg (2 x 40 mg) PO DAILY omeprazole 20 mg PO DAILY oxycodone 5 mg PO BID PRN sodium chloride 1,000 mg PO BID tamsulosin 0.4 mg PO DAILY HPI Comments Details: Luis Angel is here for consultation regarding a recent stroke. Per notes, patient came to the hospital with right eye vision loss. In that setting, he underwent further workup. CTA of the head and neck had shown 60% right internal carotid artery stenosis. MRI showed acute ischemia in the right basal ganglia. It seems that he still has a vision issue. From the cardiac standpoint, he has a history of ascending aortic aneurysm followed up at [facility] cardiac surgery. Otherwise, hypertension high lipids on medications. Within limits of his activity, he has got no clear-cut cardiac symptoms like angina. Seems to be getting along okay. He would like to establish care at [facility]. [facility] Medical History Dyspnea on exertion Osteoarthritis Erectile dysfunction Hypercholesteremia Diskitis Tubular adenoma SIAD (syndrome of inappropriate antidiuresis) Thoracic aortic aneurysm Constipation CAD (coronary artery disease) History of rib fracture Hard of hearing History of MRSA infection Back pain GERD (gastroesophageal reflux disease) Weakness Habitual snoring High cholesterol Hypertension Surgical History History of esophagogastroduodenoscopy (EGD) Hx of tonsillectomy History of total right knee replacement Hx of cataract extraction H/O colonoscopy Knee joint replacement status Family History (Updated 03/18/25 @ 14:07 by Ale Erickson) Mother Heart failure Heart attack Father Acute anxiety Depression Social History Household Members: Spouse Housing: House Are you a primary director of medicare to a significant other at home: No Do you presently have visiting nurse or other home services: No Alcohol intake: current Alcohol intake frequency: 3 or more drinks per day Alcohol type: beer Patient Tobacco Use Status: Former Tobacco user Advance Directives Date on File: 02/24/25 service: No Current occupational status: 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 Review of Systems Const Denies weakness ENT Reports dizziness Card Denies chest pain, Denies chest pain with activity, Denies syncope, Denies rapid heart rate, Denies pedal edema, Denies edema, Denies leg edema, Denies lighthea dedness, Denies palpitations, Reports dyspnea, Reports dyspnea on exertion and Denies orthopnea Resp Denies cough, Reports dyspnea and Reports dyspnea on exertion GI Denies hematochezia and Denies change in stool character Musc Denies abnormal gait, Reports back pain, Denies muscle cramps, Denies muscle weakness, Denies numbness, Denies radiating pain into limb and Denies tingling Neuro Denies abnormal gait, Reports dizziness, Denies syncope, Denies numbness, Denies tingling and Denies weakness Endo Denies palpitations Physical Exam Vital Signs: Last Vital Signs Pulse 102 H 03/18/25 14:02 BP 122/62 03/18/25 14:02 BMI result Body Mass Index 24.7 Const General: comfortable and no acute distress Orientation/consciousness: patient oriented x3 HEENT Other: Unremarkable Head: Yes normal to inspection Neck Neck: Yes normal visual inspection Chest Chest palpation & inspection: normal inspection of the chest Resp Auscultation: clear to auscultation bilaterally Cardio Palpation: normal PMI Heart sounds: S1 normal heart sound present, S2 normal heart sound present, no gallops, no murmurs and no rubs GI Palpation (GI): Soft to palpation Back/Spine/Pelvis Other: unremarkable Skin General skin exam: no rashes or lesions noted Neuro General: patient oriented x3 Extrem General: Yes normal to inspection Psych Mental Status: mental status grossly normal Assessment & Plan Assessment & Plan (1) Acute stroke of basal ganglia: Code(s): I63.9 - Cerebral infarction, unspecified Category: Medical Plan: Per MRI, acute ischemia involving right basal ganglia. Unclear if it is ischemic or embolic. We will check a 30 day monitor. Consider implantable loop recorder. (2) Stenosis of right internal carotid artery: Code(s): I65.21 - Occlusion and stenosis of right carotid artery Category: Medical Plan: Neck CTA-60% internal carotid artery stenosis. Discussed with Dr. Kumar, vascular. He will review the scans and do the needful. We will need to follow up lipids in due course. Recent LDL was quite high. Statin dose has been increased. (3) Patent foramen ovale: Code(s): Q21.12 - Patent foramen ovale Category: Medical Plan: Slightly positive bubble study but doubt that is the etiology for the stroke. Also at his age, not really candidate for closure. Hold further interventions. (4) Ascending aortic aneurysm: Code(s): I71.21 - Aneurysm of the ascending aorta, without rupture Category: Medical Plan: Usually for but [facility] cardiac surgery. On the echocardiogram, size 4.5 cm. Advised him to follow up at cardiac surgery as he usually does. If not, we will recheck echocardiogram in a year. (5) Cardiomyopathy: Code(s): I42.9 - Cardiomyopathy, unspecified Category: Medical Plan: LVEF of 48% on the echocardiogram. No known ischemic heart disease. Myocardial perfusion imaging study from [facility]2019 was normal. He may need a repeat study in the future. But clinically he has got no angina. Plan Discussion Notes I discussed with the patient the importance of monitoring for atrial fibrillation as a potential cause of the stroke and the possibility of starting anticoagulation therapy if AFib is detected. We also talked about the need for a vascular consultation to assess the carotid artery stenosis and the ongoing monitoring of the aortic aneurysm. Patient was informed and verbally consented to the use of an ambient scribe for clinic note documentation during this visit. Orders: Orders ECG 30 day event monitor Today I48.0 - Paroxysmal atrial fibrillation, I63.9 - Cerebral infarction, unspecified Patient Instructions: - Monitor for any new symptoms or changes in vision and report them immediately. - Continue taking prescribed medications, including aspirin, amlodipine, and atorvastatin. - You may need vascular surgery evaluation for carotid stenosis. - Maintain regular check-ups for the aortic aneurysm. Coding Level of Care Code New Pt Level 4 (22828) Complex EM visit Add On G2211 Diagnoses Acute stroke of basal ganglia I63.9 Stenosis of right internal carotid artery I65.21 Patent foramen ovale Q21.12 Ascending aortic aneurysm I71.21 Cardiomyopathy I42.9
== END 2025-03-18 14:30 | disposition home or self-care (01) ==
LOC: HO.HCS 14:00
PROVIDERS: PCP Internal Medicine; Visit Provider Internal Medicine
DX: I63.9 Cerebral infarction, unspecified (principal); I65.21 Occlusion and stenosis of right carotid artery; Q21.12 Patent foramen ovale; I71.21 Aneurysm of the ascending aorta, without rupture; I42.9 Cardiomyopathy, unspecified
CPT/HCPCS: 99214; G2211

== ENCOUNTER → 2025-03-18 13:59 | Outpatient (BNVA) | payer MEDICARE, SELFPAY | PROVIDERS: PCP Internal Medicine; Visit Provider Internal Medicine | DX: I65.21 Occlusion and stenosis of right carotid artery (principal); I63.9 Cerebral infarction, unspecified; Q21.12 Patent foramen ovale; I71.21 Aneurysm of the ascending aorta, without rupture; I42.9 Cardiomyopathy, unspecified | CPT/HCPCS: 99212 ==

== ENCOUNTER 2025-03-19 10:56 | Outpatient (AMB) | payer MEDICARE, SELFPAY ==
--- NOTE | 2025-03-19 11:01 | MHC.OFFVIS ---
Intake Visit Reasons: Hospital Follow Up - Stroke Allergies Penicillins Adverse Reaction (Verified 02/23/25 08:57) swollen HPI Comments Details: The patient is a 74-year-old male presenting with stroke management and follow-up after admission for ischemic stroke. He experienced a small ischemic stroke, with previous imaging revealing multiple past strokes. The patient has managed hypertension and hyperlipidemia, previously untreated with aspirin prior to the recent stroke. Carotid imaging showed mild stenosis on the right without any surgical indication, and strokes were bilateral. A recent cardiology assessment aims to investigate potential cardiac causes of recurrent strokes. He reports balance issues as a consequence of previous strokes, contributing to a diagnosis of vascular dementia affecting balance, memory, and potentially bladder control. He continues on medications for hypertension and hyperlipidemia, with recent initiation of aspirin therapy. The patient acknowledges no prior heart disease history before current stroke incidents. Further cardiac monitoring has been arranged post-discharge to assess possible implications for stroke management. [facility] Medical History Dyspnea on exertion Osteoarthritis Erectile dysfunction Hypercholesteremia Diskitis Tubular adenoma SIAD (syndrome of inappropriate antidiuresis) Thoracic aortic aneurysm Constipation CAD (coronary artery disease) History of rib fracture Hard of hearing History of MRSA infection Back pain GERD (gastroesophageal reflux disease) Weakness Habitual snoring High cholesterol Hypertension Surgical History History of esophagogastroduodenoscopy (EGD) Hx of tonsillectomy History of total right knee replacement Hx of cataract extraction H/O colonoscopy Knee joint replacement status Family History (Updated 03/18/25 @ 14:07 by Ale Erickson) Mother Heart failure Heart attack Father Acute anxiety Depression Social History Household Members: Spouse Housing: House Are you a primary caretaker to a significant other at home: No Do you presently have visiting nurse or other home services: No Alcohol intake: current Alcohol intake frequency: 3 or more drinks per day Alcohol type: beer Patient Tobacco Use Status: Former Tobacco user Advance Directives Date on File: 02/24/25 service: No Current occupational status: 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 - Cardiovascular: Denies prior heart disease; has follow-up for cardiac investigation. - Hematologic: Reports use of aspirin therapy post-stroke. - Genitourinary: Denies issues with bladder control. Physical Exam Neuro Other: Mental Status: Alert and oriented to person, place, and time. Normal attention. Normal spontaneous speech, fluency, and comprehension. No obvious issues with mood and memory. Affect is appropriate. Cranial Nerves: CN II: Visual black full to confrontation, visual acuity intact. CN III, IV, : Pupils equal, round, reactive to light and accommodation. Extraocular movements are normal. CN V: Facial sensation is normal. CN VII: Facial movements symmetrical. CN VIII: Hearing intact to bedside conversation is normal. CN IX, X: Palate elevates symmetrically. CN XI: Shoulder shrug and head turn symmetrical. CN XII: Tongue midline without atrophy or fasciculations. Gait and Station: Cautious gait Extrapyramidal: Full facial expressions and blinking. No rigidity. Movements are appropriate with no tremor or abnormality. Speech: Normal; no dysarthria or tremor. Assessment & Plan Assessment & Plan (1) Multiple cerebral infarctions: Comment: [place] brain WO at [facility] [place] Feb 2025: Mild to mod atrophy, mod MVD, once distinct right parieto-occipital chronic infarct CTA brain and neck at [facility] in Feb 2025: CT findings and mod R ICA stenosis MRI brain WO at [facility] in Feb 2025: CT findings, numerous embolic looking chronic ischemic infarcts, a small R basal ganglia acute infarct Code(s): I63.9 - Cerebral infarction, unspecified Category: Medical (2) Carotid stenosis: Code(s): I65.29 - Occlusion and stenosis of unspecified carotid artery Category: Medical Qualifiers: Laterality: right Qualified Code(s): I65.21 - Occlusion and stenosis of right carotid artery Plan Impression: a: An acute right basal ganglia area ischemic infarct, probably atherothrombotic. His EKG revealed sinus rhythm and transthoracic echocardiogram did not reveal any significant abnormality. 2. Multiple chronic ischemic infarct including a larger 1 in right parieto-occipital area suggesting combination of atherothrombotic versus +embolism 3. Moderate right internal carotid artery stenosis 4. Gait disorder from vascular disease 5. 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
== END 2025-03-19 11:15 | disposition home or self-care (01) ==
LOC: HO.HSM 10:57
PROVIDERS: PCP Internal Medicine; Visit Provider Psychiatry & Neurology Neurology
DX: I63.9 Cerebral infarction, unspecified (principal); I65.21 Occlusion and stenosis of right carotid artery
CPT/HCPCS: 99214

== ENCOUNTER → 2025-03-19 10:56 | Outpatient (BNVA) | payer MEDICARE, SELFPAY | PROVIDERS: PCP Internal Medicine; Visit Provider Psychiatry & Neurology Neurology | DX: I65.21 Occlusion and stenosis of right carotid artery (principal); Z86.73 Personal history of transient ischemic attack (TIA), and cerebral infarction without residual deficits | CPT/HCPCS: 99212 ==

== ENCOUNTER 2025-03-24 10:20 | Outpatient (AMB) | payer MEDICARE, SELFPAY ==
--- NOTE | 2025-03-24 10:22 | A.OFFVIS_ITS ---
Intake Visit Reasons: Urgent Cardio Ref carotid stenosis Intake Note: New patient presents for carotid stenosis. Patient had CTA Neck and Brain on 02/23/25. Patient states he had a stroke and loss vision . He gets dizzy spells as well. Allergies Penicillins Adverse Reaction (Verified 03/24/25 10:28) swollen HPI HPI Urgent Cardio Ref carotid stenosis: Details: The patient is a 75-year-old male presenting with right visual loss and acute ischemic stroke. The patient experienced right visual loss on February 22, described as a black curtain coming over the eye, which has slightly improved since onset. A CTA revealed 60% stenosis of the right carotid artery, and an MRI indicated acute ischemia in the right basal ganglia extending to the mo radiata. The patient has a history of hypertension and denies smoking and diabetes. He is not currently on blood thinners but takes aspirin. The patient reports chronic pain due to osteomyelitis, for which he takes oxycodone, and has previously seen a stained glass painter. Of note he can climb a flight of stairs with no difficulty. He does follow with Dr. Manley from Cardiology who did bring the carotid issue to my attention. [facility] Medical History Dyspnea on exertion Osteoarthritis Erectile dysfunction Hypercholesteremia Diskitis Tubular adenoma SIAD (syndrome of inappropriate antidiuresis) Thoracic aortic aneurysm Constipation CAD (coronary artery disease) History of rib fracture Hard of hearing History of MRSA infection Back pain GERD (gastroesophageal reflux disease) Weakness Habitual snoring High cholesterol Hypertension Surgical History History of esophagogastroduodenoscopy (EGD) Hx of tonsillectomy History of total right knee replacement Hx of cataract extraction H/O colonoscopy Knee joint replacement status Family History Mother Heart failure Heart attack Father Acute anxiety Depression Social History Household Members: Spouse Housing: House Are you a primary ambulatory care coordinator to a significant other at home: No Do you presently have visiting nurse or other home services: No Alcohol intake: current Alcohol intake frequency: 3 or more drinks per day Al cohol type: beer Patient Tobacco Use Status: Former Tobacco user Advance Directives Date on File: 02/24/25 service: No Current occupational status: 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 Review of Systems Const All systems reviewed & are unremarkable except as noted in HPI and below Reports no additional complaints ENT Reports Normal hearing present Card Denies chest pain, Denies chest pain at rest, Denies chest pain with activity and Denies pedal edema Resp Denies cough GI Denies abdominal pain Musc Denies abnormal gait, Denies muscle cramps and Denies radiating pain into limb Skin/Breast Denies skin ulcer and Denies wounds Neuro Reports Normal hearing present and Denies abnormal gait Psych Reports no additional complaints Physical Exam Const General: cooperative, healthy appearing and comfortable Orientation/consciousness: oriented to person, oriented to place and oriented to time HEENT Head: Yes normal to inspection Neck Neck: Yes normal visual inspection Carotids: no bruits Chest Chest palpation & inspection: normal inspection of the chest Resp Effort & Inspection: normal respiratory effort and able to speak in complete sentences Auscultation: clear to auscultation bilaterally, no crackles, no rales, no rhonchi and no wheezes Cardio Rate: regular rate Rhythm: regular rhythm Heart sounds: S1 normal heart sound present and S2 normal heart sound present Bruits: no carotid bruits Peripheral pulses: Peripheral pulses 2+ throughout GI Inspection: Yes normal to inspection Skin Wounds: no wounds Hair: normal Neuro General: oriented to person, oriented to place and oriented to time Cranial nerves: Yes CN's II-XII intact bilaterally and Yes Normal hearing present Cognition (Neuro): normal cognition Motor exam (neuro): 5/5 motor strength present throughout Extrem Other: venous exam: No significant superficial varicosities or spider telangiectasias, minimal edema General: No clubbing, No cyanosis and No edema Psych Appearance: grossly normal Mental Status: mental status grossly normal Speech and movement: Normal speech and movement present Results Reviewed Results Reviewed: CTA of the carotids dated 02/23/2025 demonstrates right-sided carotid stenosis of 60% highly calcified. Written report and images were reviewed Assessment & Plan Assessment & Plan (1) Stenosis of right internal carotid artery: Code(s): I65.21 - Occlusion and stenosis of right carotid artery Category: Medical Plan: I discussed with the patient the presence of 60% stenosis in the right carotid artery and its potential role in his recent ischemic stroke and visual loss. I recommended surgical intervention to clean out the carotid artery, explaining the procedure, risks, benefits and complications. In short patient will require right carotid endarterectomy. He will require cardiac risk stratification prior to surgery although he has already had an echo. Plan Patient was informed and verbally consented to the use of an ambient scribe for clinic note documentation during this visit. Coding Level of Care Code New Pt Level 4 (44951) Complex EM visit Add On G2211 Diagnoses Stenosis of right internal carotid artery I65.21
--- OUTSIDE RECORDS SUMMARY | 2025-03-24 12:11 | XMS_ITS | Encounter Summary ---
Author Organization [facility] [place], Address [address] [place] [address] Phone Care Team Providers Care Director Council On Aging Name Role Phone Luly Newton MD Primary Care Provider [phone] Encounter Details Date Type Department Care Team (Late st Contact Info) Description 09/07/2023 Orders Only [facility] [address] [place] [address] Daniel Dumont DO [address] [place] [address] Hyponatremia Social History Tobacco Use [...] Care Team (Late st Contact Info) Description 05/27/2025 2:00 PM EST Office Visit [facility] [address] [place] [address] Daniel Dumont DO [address] [place] [address] documented as of this encounter Visit Diagnoses Diagnosis Hyponatremia documented in this encounter Care Teams Director Council On Aging Relationship Specialty Start Date End Date Luly Newton MD [address] [place] [address] [address] [place] [address] PCP - General Internal Medicine 02/13/23 documented as of this encounter
--- OUTSIDE RECORDS SUMMARY | 2025-03-24 12:11 | XMS_ITS | Encounter Summary ---
Author Organization [facility] Address [address] [place] [address] Phone Care Team Providers Care Water Pump Servicer Name Role Phone Luly Newton MD Primary Care Provider [phone] Encounter Details Date Type Department Care Team (Late st Contact Info) Description 02/22/2024 Orders Only [facility] [address] [place] [address] Daniel Dumont DO [address] [place] [address] Hyponatremia Social History Tobacco Use [...] Visit [facility] [address] [address] [place] [address] Daniel Dumont DO [address] [place] [address] documented as of this encounter Visit Diagnoses Diagnosis Hyponatremia documented in this encounter Care Teams Water Pump Servicer Relationship Specialty Start Date End Date Luly Newton MD [address] [place] [address] [address] [place] [address] PCP - General Internal Medicine 02/13/23 documented as of this encounter
--- OUTSIDE RECORDS SUMMARY | 2025-03-24 12:11 | XMS_ITS | Encounter Summary ---
Author Organization [facility] Address [address] [place] [address] Phone Care Team Providers Care Lithographic Photographer Apprentice Name Role Phone Luly Newton MD Primary Care Provider [phone] Encounter Details Date Type Department Care Team (Late st Contact Info) Description 11/02/2023 Orders Only [facility] [address] [place] [address] Daniel Dumont DO [address] [place] [address] Hyponatremia Social History Tobacco Use [...] Visit [facility] [address] [place] [address] Daniel Dumont DO [address] [place] [address] documented as of this encounter Visit Diagnoses Diagnosis Hyponatremia documented in this encounter Care Teams Lithographic Photographer Apprentice Relationship Specialty Start Date End Date Luly Newton MD [address] [place] [address] [address] [place] [address] PCP - General Internal Medicine 02/13/23 documented as of this encounter
--- OUTSIDE RECORDS SUMMARY | 2025-03-24 12:11 | XMS_ITS | Encounter Summary ---
Author Organization [facility] [place], Address [address] [place] [address] Phone Care Team Providers Care Licensed Retail Supervisor Name Role Phone Luly Newton MD Primary Care Provider [phone] Encounter Details Date Type Department Care Team (Late st Contact Info) Description 01/04/2024 Orders Only [facility] [address] [place] [address] Daniel Dumont DO [address] [facility] [place] [address] Hyponatremia; Hypertension Social History Tobacco [...] Visit [facility] [address] [place] [address] Daniel Dumont DO [address] [facility] [place] [address] documented as of this encounter Visit Diagnoses Diagnosis Hyponatremia Hypertension documented in this encounter Care Teams Licensed Retail Supervisor Relationship Specialty Start Date End Date Luly Newton MD [address] [place] [address] PCP - General Internal Medicine 02/13/23 documented as of this encounter
--- OUTSIDE RECORDS SUMMARY | 2025-03-24 12:11 | XMS_ITS | Encounter Summary ---
Author Organization [facility] [place], Address [address] [place] [address] Phone Care Team Providers Care Flight Radio Operator Name Role Phone Luly Newton MD Primary Care Provider [phone] Encounter Details Date Type Department Care Team (Late st Contact Info) Description 06/01/2023 Documentation Only [facility] [address] [place] [address] Daniel Dumont DO [address] [facility] [address] [place] [address] Social History Tobacco Use Types [...] Visit [facility] [address] [place] [address] Daniel Dumont DO [address] [facility] [place] [address] documented as of this encounter Visit Diagnoses Not on filedocumented in this encounter Care Teams Flight Radio Operator Relationship Specialty Start Date End Date Luly Newton MD [address] [place] [address] [address] [place] [address] PCP - General Internal Medicine 02/13/23 documented as of this encounter
--- OUTSIDE RECORDS SUMMARY | 2025-03-24 12:11 | XMS_ITS | Encounter Summary ---
Author Organization [facility] [place], Address [address] [place] [address] Phone Care Team Providers Care Coremaker Floor Name Role Phone Luly Newton MD Primary Care Provider [phone] Encounter Details Date Type Department Care Team (Late st Contact Info) Description 07/13/2023 Orders Only [facility] [address] [place] [address] Daniel Dumont DO [address] [facility] [place] [address] Hyponatremia Social History Tobacco Use [...] Visit [facility] [address] [place] [address] Daniel Dumont DO [address] [facility] [place] [address] documented as of this encounter Visit Diagnoses Diagnosis Hyponatremia documented in this encounter Care Teams Coremaker Floor Relationship Specialty Start Date End Date Luly Newton MD [address] [place] [address] [address] [place] [address] PCP - General Internal Medicine 02/13/23 documented as of this encounter
--- OUTSIDE RECORDS SUMMARY | 2025-03-24 12:11 | XMS_ITS | Encounter Summary ---
Author Organization [facility] [place], Address [address] [place] [address] Phone Care Team Providers Care Mounter Hand Name Role Phone Luly Newton MD Primary Care Provider [phone] Encounter Details Date Type Department Care Team (Late st Contact Info) Description 01/09/2025 Orders Only [facility] [address] [place] [address] Daniel Dumont DO [address] [facility] [address] [place] [address] Hyponatremia; Hypertension Social History Tobacco [...] Visit [facility] [address] [place] [address] Daniel Dumont DO [address] [facility] [address] [place] [address] documented as of this encounter Visit Diagnoses Diagnosis Hyponatremia Hypertension documented in this encounter Care Teams Mounter Hand Relationship Specialty Start Date End Date Luly Newton MD [address] [place] [address] PCP - General Internal Medicine 02/13/23 documented as of this encounter
--- OUTSIDE RECORDS SUMMARY | 2025-03-24 12:11 | XMS_ITS | Encounter Summary ---
Author Organization [facility] [place], Address [address] [place] [address] Phone Care Team Providers Care Circuit Recorder Name Role Phone Luly Newton MD Primary Care Provider [phone] Encounter Details Date Type Department Care Team (Late st Contact Info) Description 07/11/2023 Documentation Only [facility] [address] [place] [address] Daniel Dumont DO [address] [facility] [place] [address] Social History Tobacco Use Types [...] Visit [facility] [address] [place] [address] Daniel Dumont DO [address] [facility] [place] [address] documented as of this encounter Visit Diagnoses Not on filedocumented in this encounter Care Teams Circuit Recorder Relationship Specialty Start Date End Date Luly Newton MD [address] [place] [address] [address] [place] [address] PCP - General Internal Medicine 02/13/23 documented as of this encounter
--- OUTSIDE RECORDS SUMMARY | 2025-03-24 12:11 | XMS_ITS | Clinical Summary ---
Author Organization [facility] [place], Address [address] [place] [address] [place] [address] Phone Care Team Providers Care Cementer Helper Name Role Phone Luly Newton MD Primary Care Provider [phone] Allergies Active Allergy Reactions Criticality Noted Date [...] mouth 1 (one) time each day Active tamsulosin (Flomax) 0.4 MG 24 hr [...] mouth 1 (one) time each day Active sodium chloride 1 g tablet TAKE ONE TABLET BY MOUTH IN THE MORNING AND ONE TABLET BY MOUTH IN THE EVENING AND ONE TABLET BEFORE BEDTIME. 90 tablet 5 Active sodium chloride 1 g tablet TAKE ONE TABLET BY MOUTH IN THE MORNING AND ONE TABLET BY MOUTH IN THE EVENING AND ONE TABLET BEFORE BEDTIME 90 tablet 025 Discontinued Active Problems Problem Noted Date Diagnosed Date H/O: urinary disease 11/19/2024 Acute kidney failure with tubular necrosis 02/14 Hypertension 02/13/2023 Hyponatremia 02/13/2023 Encounters Date Type Department Care Team Description 03/06/2025 Orders Only [facility] [address] [place] [phone] Daniel Dumont DO Hyponatremia; Hypertension 02/26/2025 Refill [facility] [address] [place] [address] Daniel Dumont DO 01/09/2025 Orders Only [facility] [address] [place] [address] Daniel Dumont DO Hyponatremia; Hypertension 01/07/2025 Refill [facility] [address] [place] [address] Daniel Dumont DO from Last 3 Months Immunizations Immunization Administration Dates Next Due Pfizer SARS-COV-2 03/11/2021,09/07/2020,08/18/19 21 Pneumococcal Polysaccharide 05/18/2017 Shingrix 09/11/2023,03/23/2023 Tdap 10/27/2015 Family History Medical History Relation Comments Cancer [...] Sign Reading Time Taken Comments Blood Pressure 124/62 11/19/2024 1:44 PM EDT Pulse 78 11/19/2024 1:44 PM EDT Temperature - - Respiratory Rate - - Oxygen Saturation - - Inhaled Oxygen Concentration - - Weight - - Height - - Body Mass Index - - Plan of Treatment Upcoming Encounters Date Type Department Care Team (Late st Contact Info) Description 05/27/2025 2:00 PM EST Office Visit [facility] [place], [address] [place] [address] Daniel Dumont, [address] [place] [address] Health Maintenance Due Date Last Done Comments Pneumococcal Vaccine: 50+ Ye ars (2 of 2 - PCV) 05/18/2018 05/18/2017 Influenza Vaccine (#1) 2025 Hepatitis B Vaccine Aged Out No longe r eligible based on patient's age to complete this topic Insurance [facility] Care Teams Cementer Helper Relationship Specialty Start Date End Date Luly Newton MD [address] [place] [address], [facility] [address] [place] [address] PCP - General Internal Medicine 02/13/23
--- OUTSIDE RECORDS SUMMARY | 2025-03-24 12:11 | XMS_ITS | Encounter Summary ---
Author Organization [facility] [place], Address [address] [place] [address] Phone Care Team Providers Care Rag Inspector Name Role Phone Luly Newton MD Primary Care Provider [phone] Encounter Details Date Type Department Care Team (Late st Contact Info) Description 12/28/2023 Orders Only [facility] [address] [place] [address] Daniel Dumont DO [address] [place] [address] Hyponatremia Social History Tobacco Use [...] Visit [facility] [address] [place] [address] Daniel Dumont DO [address] [place] [address] documented as of this encounter Visit Diagnoses Diagnosis Hyponatremia documented in this encounter Care Teams Rag Inspector Relationship Specialty Start Date End Date Luly Newton MD [address] [place] [address] [address] [place] [address] PCP - General Internal Medicine 02/13/23 documented as of this encounter
--- OUTSIDE RECORDS SUMMARY | 2025-03-24 12:11 | XMS_ITS | Encounter Summary ---
Author Organization [facility] [place], Address [address] [place] [address] Phone Care Team Providers Care Small Business Consultant Name Role Phone Luly Newton MD Primary Care Provider [phone] Encounter Details Date Type Department Care Team (Late st Contact Info) Description 04/30/2024 Documentation Only [facility] [address] [place] [address] Daniel Dumont DO [address] [facility] [place] [address] Social History Tobacco Use Types [...] Visit [facility] [address] [place] [address] Daniel Dumont DO [address] [facility] [place] [address] documented as of this encounter Visit Diagnoses Not on filedocumented in this encounter Care Teams Small Business Consultant Relationship Specialty Start Date End Date Luly Newton MD [address] [place] [address] 104 [place] [address] PCP - General Internal Medicine 02/13/23 documented as of this encounter
--- OUTSIDE RECORDS SUMMARY | 2025-03-24 12:11 | XMS_ITS | Encounter Summary ---
Author Organization [facility] [place], Address [address] [place] [address] Phone Care Team Providers Care Hand I Thermal Cutter Name Role Phone Luly Newton MD Primary Care Provider [phone] Encounter Details Date Type Department Care Team (Late st Contact Info) Description 01/25/2024 Orders Only [facility] [address] [place] [address] Daniel Duomnt DO [address] [facility] [address] [place] [address] Hyponatremia Social History Tobacco Use [...] Visit [facility] [address] [place] [address] Daniel Dumont DO [address] [facility] [address] [place] [address] documented as of this encounter Procedures Procedure Name Priority Date/Time Associated Diagnosis Comments RENAL FUNCTION PANEL Routine 11/19/2024 10:33 AM EDT documented in this encounter Results * (ABNORMAL) Renal Function Panel (11/19/2024 10:33 AM EDT) Glucose 89 70 - 99 mg/dL [facility] BUN 15 8 - 27 mg/dL [facility] Creatinine 0.79 0.76 - 1.27 mg/dL [facility] eGFR CKD-EPI CR 2020 93 >59 mL/min/1.7 3 [facility] BUN/Creatinine Ratio 19 10 - 24 [facility] Sodium 131(L) 134 - 144 mmol/L [facility] Potassium 3.7 3.5 - 5.2 mmol/L [facility] Chloride 90(L) 96 - 106 mmol/L [facility] Bicarbonate (CO2) 22 20 - 29 mmol/L [facility] Calcium 9.9 8.6 - 10.2 mg/dL [facility] Albumin 5.1(H) 3.8 - 4.8 g/dL [facility] Phosphorus 3.2 2.8 - 4.1 mg/dL [facility] 11/19/2024 10:3 3 AM EDT 11/19/2024 us Daniel Dumont DO LAB BLOOD ORDERABLES Final Resu lt [facility] [address] [place] [address] documented in this encounter Visit Diagnoses Diagnosis Hyponatremia documented in this encounter Care Teams Hand I Thermal Cutter Relationship Specialty Start Date End Date Luly Newton MD [address] [place] [address], [address] [place] [address] PCP - General Internal Medicine 02/13/23 documented as of this encounter
--- OUTSIDE RECORDS SUMMARY | 2025-03-24 12:11 | XMS_ITS | Encounter Summary ---
Author Organization [facility] Address [address] [place] [address] Phone Care Team Providers Care Presto Log Operator Name Role Phone Luly Newton MD Primary Care Provider [phone] Encounter Details Date Type Department Care Team (Late st Contact Info) Description 08/10/2023 Orders Only [facility] [address] [place] [address] Daniel Dumont DO [address] [facility] [address] [place] [address] Hyponatremia Social History Tobacco Use [...] Visit [facility] [address] [place] [address] Daniel Dumont DO [address] [facility] [address] [place] [address] Scheduled Orders Name Type Priority [...] - 08/21/2023 11:07 AM EDT Performed at: 01 - [address] [id number] Home School Coordinator: La Haile MD, Phone: [phone] us Daniel Dumont DO LAB [id number] LICITED RESULTS Final Result [facility] documented in this encounter Visit Diagnoses Diagnosis Hyponatremia documented in this encounter Care Teams Presto Log Operator Relationship Specialty Start Date End Date Luly Newton MD [address] [place] [address] [address] [place] [id number] PCP - General Internal Medicine 02/13/23 documented as of this encounter
--- OUTSIDE RECORDS SUMMARY | 2025-03-24 12:11 | XMS_ITS | Data Portability ---
Author Organization [facility] Address [address] [place] [address] Care Team Providers Care Working Foreman Name Role Phone MELQUIADES JIMÉNEZ Primary Care Provider [phone] Assessment No assessment recorded. 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 Procedures Surgical History Date Name Laterality Status Provider Name and Address Organization Details Recorded Time 04/03/2024 Sports Knee 4&1 cancelled Weston Oakes PA-C [address], [place], [address], [facility] 04/03/2024 07:33:56 01/03/2024 Sports Knee 4&1 completed Weston Oakes PA-C [address], [place], [address], [facility] 01/03/2024 07:33:11 10/01/2023 Sports Knee 4&1 completed Weston Oakes PA-C [address], [place], [address], [facility] 10/01/2023 07:39:31 Imaging Results None recorded. Procedure Notes None recorded. Medical Equipment None Reported. Allergies Allergen ID Allergen Name Allergen Category Reaction Reaction Severity Criticality Documentation Date Start Date Code Code System Note Provider Name and Address Organization Details Recorded Time 24931 Product containin g penicilli n (product) medicatio n swelling Not available Not available 08/13/20232017 38138 8001 SNOMED Not Available [facility] 11:39:11 Medications Name Sig Start Date Stop [...] No t Available omeprazole 20 mg capsule,mookie lancasterd release active Not Available Not Available Not [...] Updated DateTime 10/01/2023 172.72 cm 25.8 kg/m2 23533.7 g PRIMO MIRZA [facility] 10/01/2023 09:49:15 Date Recorded Body height Body mass index (BMI) Body weight Provider Name and Address Organization Details Last Updated DateTime 01/03/2024 172.72 cm 25.8 kg/m2 92440.7 g ARASELI WHITNEY [facility] 01/03/2024 08:44:06 Social History None recorded. Functional Status None recorded. Mental Status None recorded. Family History Nothing Reported. Medical History No medical history recorded. Past Encounters Encounter ID Performer Location Encounter Start Date Encounter Closed Date Diagnosis/Indication Diagnosis SNOMED-CT Code Diagnosis ICD10 Code Diagnosis IMO Codes Diagnosis Note [id number] [facility] [address] [place] [address] 10/01/2023 09:39:57 10/22/2023 06:46:39 Osteoarthritis of left knee joint 6774469741 60767 M17.12 [id number] Weston Oakes PA-C [address] [place] [address] 01/03/2024 08:31:57 01/23/2024 15:15:04 Osteoarthritis of left knee joint [id number] 87434 M17.12 Health Concerns Section Related Observation LastModified by Organization Detai ls LastModified Time None Recorded Concern Status LastModified by Organization Details LastModified Time None Recorded Advance Directives Directive None Recorded Payers Insurance Date Sequence Insurance Name Policy Number Policy Hillman Covered Member ID Hillman Member ID Guarantor Name 04/02/2024 1 [facility]: MEDICARE PPO BLUE (MEDICARE REPLACEMENT PPO) [id number] Luis Angel Scott [id number] Luis Angel Scott Notes Date Note Type Note Provider Name and Address Organization Details Recorded Time 10/01/2023 text/html I am seeing the patient today under the supervision of who was available but who did not see the patient. Chief Complaint The patient presents today for recheck of left knee osteoarthritis. Is known to have knee arthritis treated conservatively to this point with 3 months relief of symptoms. Presents today for recheck secondary to increased knee pain. Past Medical/Surgical History Reviewed today, otherwise unchanged per intake sheet. Physical Findings General Appearance: Well developed. In no acute distress. Musculoskeletal System: Knee: General/bilateral: No laxity of the knee. Right Knee: Medial aspect was tender on palpation. No erythema. No warmth. Left Knee: Medial aspect was tender on palpation. No erythema. No warmth. Musculoskeletal Scales: General/bilateral: Mild effusion noted. Neurological: Oriented to time, place, and person. Gait And Stance: Normal. Psychiatric: Mood was appropriate to the affect. Left knee 0-120 degrees of flexion with discomfort. Assessment Osteoarthritis of knee - Plan More than [...] continued conservative treatment. Weston Oakes PA-C [address], [place], [address], [facility] 10/01/2023 16:44:48 01/03/2024 text/html I am seeing the patient today under the supervision of who was available but who did not see the patient. Chief Complaint The patient presents today for recheck of left knee osteoarthritis. Is known to have knee arthritis treated conservatively to this point with 3 months relief of symptoms. Presents today for recheck secondary to increased knee pain. Past Medical/Surgical History Reviewed today, otherwise unchanged per intake sheet. Physical Findings General Appearance: Well developed. In no acute distress. Musculoskeletal System: Knee: General/bilateral: No laxity of the knee. Right Knee: Medial aspect was tender on palpation. No erythema. No warmth. Left Knee: Medial aspect was tender on palpation. No erythema. No warmth. Musculoskeletal Scales: General/bilateral: Mild effusion noted. Neurological: Oriented to time, place, and person. Gait And Stance: Normal. Psychiatric: Mood was appropriate to the affect. Left knee 0-120 degrees of flexion with discomfort. Assessment Osteoarthritis of knee - Plan More than [...] continued conservative treatment. Weston Oakes PA-C [address], [place], [address], [facility] 01/04/2024 07:25:10
--- OUTSIDE RECORDS SUMMARY | 2025-03-24 12:11 | XMS_ITS | Encounter Summary ---
Author Organization [facility] [place], Address [address] [place] [address] Phone Care Team Providers Care Instructional Assistant Name Role Phone Luly Newton MD Primary Care Provider [phone] Encounter Details Date Type Department Care Team (Late st Contact Info) Description 11/30/2023 Orders Only [facility] [address] [place] [address] Daniel Dumont DO [address] [facility] [place] [address] Hyponatremia Social History Tobacco Use [...] Visit [facility] [address] [place] [address] Daniel Dumont DO [address] [facility] [address] [place] [address] documented as of this encounter Visit Diagnoses Diagnosis Hyponatremia documented in this encounter Care Teams Instructional Assistant Relationship Specialty Start Date End Date Luly Newton MD [address] [place] [address] [address] [place] [address] PCP - General Internal Medicine 02/13/23 documented as of this encounter
--- OUTSIDE RECORDS SUMMARY | 2025-03-24 12:11 | XMS_ITS | Encounter Summary ---
Author Organization [facility] [place], Address [address] [place] [address] Phone Care Team Providers Care Bankruptcy Attorney Name Role Phone Luly Newton MD Primary Care Provider [phone] Encounter Details Date Type Department Care Team (Late st Contact Info) Description 03/28/2024 Orders Only [facility] [address] [place] [address] Daniel Dumont DO [address] [facility] [place] [address] Hyponatremia; Hypertension Social History Tobacco [...] Visit [facility] [address] [place] [address] Daniel Dumont DO [address] [facility] [place] [address] documented as of this encounter Visit Diagnoses Diagnosis Hyponatremia Hypertension documented in this encounter Care Teams Bankruptcy Attorney Relationship Specialty Start Date End Date Luly Newton MD [address] [place] [address] PCP - General Internal Medicine 02/13/23 documented as of this encounter
--- OUTSIDE RECORDS SUMMARY | 2025-03-24 12:11 | XMS_ITS | Encounter Summary ---
Author Organization [facility] [place], Address [address] [place] [address] Phone Care Team Providers Care Cardiology Clinical Consultant Name Role Phone Luly Newton MD Primary Care Provider [phone] Encounter Details Date Type Department Care Team (Late st Contact Info) Description 03/06/2025 Orders Only [facility] [address] [address] Daniel Dumont DO [address] [facility] [place] [address] Hyponatremia; Hypertension Social History Tobacco [...] [facility] [address] [address] Daniel Dumont DO [address] [facility] [place] [address] documented as of this encounter Visit Diagnoses Diagnosis Hyponatremia Hypertension documented in this encounter Care Teams Cardiology Clinical Consultant Relationship Specialty Start Date End Date Luyl Newton MD [address] [place] [address] PCP - General Internal Medicine 02/13/23 documented as of this encounter
--- OUTSIDE RECORDS SUMMARY | 2025-03-24 12:11 | XMS_ITS | Encounter Summary ---
Author Organization [facility] [place], Address [address] [place] [address] Phone Care Team Providers Care Events Solutions Consultant Name Role Phone Luly Newton MD Primary Care Provider [phone] Encounter Details Date Type Department Care Team (Late st Contact Info) Description 10/05/2023 Orders Only [facility] [address] [place] [address] Daniel Dumont DO [address] [facility] [address] [place] [address] Hyponatremia Social History Tobacco Use [...] Visit [facility] [address] [place] [address] Daniel Dumont DO [address] [facility] [address] [place] [address] documented as of this encounter Visit Diagnoses Diagnosis Hyponatremia documented in this encounter Care Teams Events Solutions Consultant Relationship Specialty Start Date End Date Luly Newton MD [address] [place] [address] [address] [place] [address] PCP - General Internal Medicine 02/13/23 documented as of this encounter
--- OUTSIDE RECORDS SUMMARY | 2025-03-24 12:12 | XMS_ITS | Encounter Summary ---
Author Organization [facility] [place], Address [address] [place] [address] Phone Care Team Providers Care Conventions Assistant Name Role Phone Luly Newton MD Primary Care Provider [phone] Encounter Details Date Type Department Care Team (Late st Contact Info) Description 09/12/2024 Orders Only [facility] [address] [place] [address] Daniel Dumont DO [address] [facility] [place] [address] Hyponatremia; Hypertension Social History Tobacco [...] Visit [facility] [address] [place] [address] Daniel Dumont DO [address] [facility] [place] [address] documented as of this encounter Visit Diagnoses Diagnosis Hyponatremia Hypertension documented in this encounter Care Teams Conventions Assistant Relationship Specialty Start Date End Date Luly Newton MD [address] [place] [address] PCP - General Internal Medicine 02/13/23 documented as of this encounter
--- OUTSIDE RECORDS SUMMARY | 2025-03-24 12:12 | XMS_ITS | Encounter Summary ---
Author Organization [facility] [place], Address [address] [place] [address] Phone Care Team Providers Care Computer Console Operator Name Role Phone Luly Newton MD Primary Care Provider [phone] Encounter Details Date Type Department Care Team (Late st Contact Info) Description 01/27/2023 Documentation Only [facility] [address] [place] [address] Daniel Dumont DO [address] [facility] [place] [address] Social History Tobacco Use Types [...] Visit [facility] [address] [place] [address] Daniel Dumont DO [address] [facility] [place] [address] documented as of this encounter Visit Diagnoses Not on filedocumented in this encounter Care Teams Computer Console Operator Relationship Specialty Start Date End Date Luly Newton MD [address] [place] [address] 104 [place] [address] PCP - General Internal Medicine 02/13/23 documented as of this encounter
--- OUTSIDE RECORDS SUMMARY | 2025-03-24 12:12 | XMS_ITS | Encounter Summary ---
Author Organization [facility] [place], Address [address] [place] [address] Phone Care Team Providers Care Field Nurse Case Manager Name Role Phone Luly Newton MD Primary Care Provider [phone] Encounter Details Date Type Department Care Team (Late st Contact Info) Description 02/13/2023 Documentation Only [facility] [address] [place] [address] Daniel Dumont DO [address] [facility] [place] [address] Social History Tobacco Use Types [...] Visit [facility] [address] [place] [address] Daniel Dumont DO [address] [facility] [place] [address] documented as of this encounter Visit Diagnoses Not on filedocumented in this encounter Care Teams Field Nurse Case Manager Relationship Specialty Start Date End Date Luly Newton MD [address] [place] [address] [address] [place] [address] PCP - General Internal Medicine 02/13/23 documented as of this encounter
--- OUTSIDE RECORDS SUMMARY | 2025-03-24 12:12 | XMS_ITS | Encounter Summary ---
Author Organization [facility] Address [address] [facility] [address] [place] [address] Phone Care Team Providers Care Vice President Payer Name Role Phone Shabana Newton MD Primary Care Provider [phone] Encounter Details Date Type Department Care Team (Late st Contact Info) Description 07/23/2019 Procedure Pass [facility] Endoscopy Admitting Dept Virtual Department [address] [place] [address] Social History Tobacco Use Types Packs/Day Years Used Date Smoking Tobacco: Former Alcohol Use Standard Drinks/Week Comments Yes 0 (1 standard drink = 0.6 oz pur e alcohol) Sex and Gender Information Value Date Recorded Sex Assigned at Not on file Legal Sex Male 5:43 PM EST Gender Identity Not on file Sexual Orientation Not on file documented as of this encounter Plan of Treatment Not on file documented as of this encounter Visit Diagnoses Not on filedocumented in this encounter Care Teams Vice President Payer Relationship Specialty Start Date End Date Shabana Newton MD [address] [place] [address] [address] [place] [address] PCP - General Internal Medicine 06/23/19 documented as of this encounter Additional Source Comments The information contained in this document represents components of the legal health record. It is not the complete legal health record.[facility]
--- OUTSIDE RECORDS SUMMARY | 2025-03-24 12:12 | XMS_ITS | Encounter Summary ---
Author Organization [facility] [place], Address [address] [place] [address] Phone Care Team Providers Care Manager Hi Name Role Phone Luly Newton MD Primary Care Provider [phone] Encounter Details Date Type Department Care Team (Late st Contact Info) Description 02/09/2023 Documentation Only [facility] [address] [place] [address] Daniel Dumont DO [address] [facility] [place] [address] Social History Tobacco Use Types [...] [facility] [address] [place] [address] Daniel Dumont DO [address] [facility] [place] [address] documented as of this encounter Visit Diagnoses Not on filedocumented in this encounter Care Teams Manager Hi Relationship Specialty Start Date End Date Luly Newton MD [address] [place] [address] [address] [place] [address] PCP - General Internal Medicine 02/13/23 documented as of this encounter
--- OUTSIDE RECORDS SUMMARY | 2025-03-24 12:12 | XMS_ITS | Encounter Summary ---
Author Organization [facility] [place], Address [address] [place] [address] Phone Care Team Providers Care Interactive Designer Name Role Phone Luly Newton MD Primary Care Provider [phone] Encounter Details Date Type Department Care Team (Late st Contact Info) Description 04/04/2023 Documentation Only [facility] [address] [address] Daniel Dumont DO [address] [facility] [place] [address] Social History Tobacco Use Types [...] Visit [facility] [address] [place] [address] Daniel Dumont DO [address] [facility] [place] [address] documented as of this encounter Visit Diagnoses Not on filedocumented in this encounter Care Teams Interactive Designer Relationship Specialty Start Date End Date Luly Newton MD [address] [place] [address] 104 [place] [address] PCP - General Internal Medicine 02/13/23 documented as of this encounter
--- OUTSIDE RECORDS SUMMARY | 2025-03-24 12:12 | XMS_ITS | Encounter Summary ---
Author Organization [facility] [place], Address [address] [place] [address] Phone Care Team Providers Care Field Representative/Health Education Name Role Phone Luly Newton MD Primary Care Provider [phone] Encounter Details Date Type Department Care Team (Late st Contact Info) Description 06/20/2024 Orders Only [facility] [address] [place] [address] Daniel Dumont DO [address] [facility] [place] [address] Hyponatremia; Hypertension Social History Tobacco [...] Visit [facility] [address] [place] [address] Daniel Dumont DO [address] [facility] [place] [address] documented as of this encounter Visit Diagnoses Diagnosis Hyponatremia Hypertension documented in this encounter Care Teams Field Representative/Health Education Relationship Specialty Start Date End Date Luly Newton MD [address] [place] [address] PCP - General Internal Medicine 02/13/23 documented as of this encounter
--- OUTSIDE RECORDS SUMMARY | 2025-03-24 12:12 | XMS_ITS | Encounter Summary ---
Author Organization [facility] Address [address] [place] [address] Phone Care Team Providers Care Client Services Administrator Name Role Phone Luly Newton MD Primary Care Provider [phone] Encounter Details Date Type Department Care Team (Late st Contact Info) Description 02/28/2024 Documentation Only [facility] [address] [place] [address] [place], [place] [address] [place] [address] Social History Tobacco Use Types [...] Visit [facility] [address] [place] [address] Daniel [facility] [address] [facility] [address] [place] [address] documented as of this encounter Visit Diagnoses Not on filedocumented in this encounter Care Teams Client Services Administrator Relationship Specialty Start Date End Date Luly Newton MD [address] [place] [address] 104 [place] [address] PCP - General Internal Medicine 02/13/23 documented as of this encounter
--- OUTSIDE RECORDS SUMMARY | 2025-03-24 12:12 | XMS_ITS | Encounter Summary ---
Author Organization [facility] Address [address] [facility] [address] [place] [address] Phone Care Team Providers Care Cardiac Cath Rn Name Role Phone Shabana Newton MD Primary Care Provider [phone] Encounter Details Date Type Department Care Team (Late st Contact Info) Description 06/23/2019 Procedure Pass [facility] Endoscopy Admitting Dept Virtual Department [address] [place] [address] Social History Tobacco Use Types Packs/Day Years [...] on filedocumented in this encounter Care Teams Cardiac Cath Rn Relationship Specialty Start Date End Date Shabana Newton MD [address] [place] [address] 104 [place] [address] PCP - General Internal Medicine 06/23/19 documented as of this encounter Additional Source Comments The information contained in this document represents components of the legal health record. It is not the complete legal health record.[facility]
--- OUTSIDE RECORDS SUMMARY | 2025-03-24 12:12 | XMS_ITS | Encounter Summary ---
Author Organization [facility] [place], Address [address] [place] [address] Phone Care Team Providers Care Detective Automobile Section Name Role Phone Luly Newton MD Primary Care Provider [phone] Encounter Details Date Type Department Care Team (Late st Contact Info) Description 02/13/2023 Documentation Only [facility] [address] [place] [address] Daniel Dumont DO [address] [facility] [place] [address] Social History Tobacco Use Types [...] Visit [facility] [address] [place] [address] Daniel Dumont DO [address] [facility] [place] [address] documented as of this encounter Visit Diagnoses Not on filedocumented in this encounter Care Teams Detective Automobile Section Relationship Specialty Start Date End Date Luly Newton MD [address] [place] [address] 104 [place] [address] PCP - General Internal Medicine 02/13/23 documented as of this encounter
--- OUTSIDE RECORDS SUMMARY | 2025-03-24 12:12 | XMS_ITS | Clinical Summary ---
Author Organization [facility] Address [address] [facility] [address] [place] [address] Phone Care Team Providers Care Back End Developer Name Role Phone Shabana Newton MD Primary Care Provider [phone] Allergies Active Allergy Reactions Criticality Noted Date Comments Penicillins 07/23/2019 Medications amlodipine besylate (AMLODIPINE ORAL) Take by mouth. Active BISOPROLOL FUMARATE ORAL Take by mouth. Active omeprazole (PRILOSEC) 20 mg TbEC Take 20 mg by mouth daily before breakfast. Active b complex vitamins capsule Take 1 capsule by mouth daily. Active multivitamin Liqd Take 5 mL by mouth daily. Active Social History Tobacco Use Types Packs/Day Years Used Date Smoking Tobacco: Former Alcohol Use Standard Drinks/Week Comments Yes 0 (1 standard drink = 0.6 oz pur e alcohol) Education Answer Date Recorded Are you interested in more education? Not on soraya e 10/06/2022 Are you concerned about learning? Not on file 10/06/2022 No 10/06/2022 No 10/06/2022 Digital Access Answer Date Recorded No 11/07/2022 No 11/07/2022 Reliable internet access at home? Not on file 11/07/2022 Device with a working camera? Not on file Sex and Gender Information Value Date Recorded Sex Assigned at Not on file Legal Sex Male 5:43 PM EST Gender Identity Not on file Sexual Orientation Not on file Last Filed Vital Signs Vital Sign Reading Time Taken Comments Blood Pressure 143/79 07/23/2019 2:34 PM EST Pulse 72 07/23/2019 1:19 PM EST Temperature 36.9 C (98.4 F) 06/23/2019 5:45 PM EST Respiratory Rate 13 07/23/2019 1:19 PM EST Oxygen Saturation 95% 07/23/2019 2:34 PM EST Inhaled Oxygen Concentration - - Weight 81.6 kg (180 lb) 07/23/2019 1:19 PM EST Height 175.3 cm (5' 9 ) 07/23/2019 1:19 PM EST Body Mass Index 26.58 07/23/2019 1:19 PM EST Plan of Treatment Health Maintenance Due Date Last Done Comments Adult Td,Tdap Booster 1950 LIPID PANEL 1949 DEPRESSION SCREENING 1961 SMOKING Hx and SMOKELESS TOB ACCO SCREENING 1962 HEPATITIS C SCREENING 1967 PNEUMOCOCCAL VACCINES (50+ y ears) (1 of 1 - PCV) 1999 ZOSTER VACCINES (1 of 2) 1999 RSV VACCINE (1 - 1-dose 75+ series) 2024 INFLUENZA VACCINE (#1) 2025 COVID-19 VACCINE (2 - 2024-2 6 season) 2025 03/11/2021 HEPATITIS A VACCINES Aged Out No long er eligible based on patient's age to complete this topic HIB VACCINES Aged Out No longer eligi ble based on patient's age to complete this topic MENINGOCOCCAL VACCINES (ACWY) Aged Out No longer eligible based on patient's age to complete this topic MENINGOCOCCAL VACCINES (B) Aged Out N o longer eligible based on patient's age to complete this topic Medical Devices Not on file Insurance [place] MEDIC[place] PPO BLUE REPLACEMENT MEDICARE PPO BLUE REPLACEMENT MEDICARE PPO BLUE REPLACEMENT MEDICARE PPO BLUE REPLACEMENT MEDICARE PPO BLUE REPLACEMENT MEDICARE PPO BLUE REPLACEMENT MEDICARE PPO BLUE REPLACEMENT MEDICARE PPO BLUE REPLAC[place] BLUE REPLACEMENT Care Teams Back End Developer Relationship Specialty Start Date End Date Shabana Newton MD [address] [place] [address] PCP - General Internal Medicine 06/23/19 Additional Source Comments The information contained in this document represents components of the legal health record. It is not the complete legal health record.[facility]
--- OUTSIDE RECORDS SUMMARY | 2025-03-24 12:12 | XMS_ITS | Encounter Summary ---
Author Organization [facility] [place], Address [address] [place] [address] Phone Care Team Providers Care Music Cataloguer Name Role Phone Luly Newton MD Primary Care Provider [phone] Encounter Details Date Type Department Care Team (Late st Contact Info) Description 03/21/2024 Orders Only [facility] [address] [place] [address] Daniel Dumont DO [address] [facility] [place] [address] Hyponatremia Social History Tobacco Use [...] Visit [facility] [address] [place] [address] Daniel Dumont DO [address] [facility] [place] [address] documented as of this encounter Visit Diagnoses Diagnosis Hyponatremia documented in this encounter Care Teams Music Cataloguer Relationship Specialty Start Date End Date Luly Newton MD [address] [place] [address] 104 [place] [address] PCP - General Internal Medicine 02/13/23 documented as of this encounter
--- OUTSIDE RECORDS SUMMARY | 2025-03-24 12:12 | XMS_ITS | Encounter Summary ---
Author Organization [facility] [place], Address [address] [place] [address] Phone Care Team Providers Care Landfill Gas Plant Field Technician Name Role Phone Luly Newton MD Primary Care Provider [phone] Encounter Details Date Type Department Care Team (Late st Contact Info) Description 02/14/2023 Documentation Only [facility] [address] [place] [address] Luly Newton MD [address] [place] [address] Social History Tobacco Use Types Packs/Day Years [...] Visit [facility] [address] [place] [address] Daniel Dumont [address] [place] [address] documented as of this encounter Visit Diagnoses Not on filedocumented in this encounter Care Teams Landfill Gas Plant Field Technician Relationship Specialty Start Date End Date Luly Newton MD [address] [place] [address] PCP - General Internal Medicine 02/13/23 documented as of this encounter
== END 2025-03-24 11:01 | disposition home or self-care (01) ==
LOC: HO.HVS 10:21
PROVIDERS: PCP Internal Medicine; Visit Provider Surgery Vascular Surgery
DX: I65.21 Occlusion and stenosis of right carotid artery (principal)
CPT/HCPCS: 99204; G2211

== ENCOUNTER → 2025-03-24 10:20 | Outpatient (BNVA) | payer MEDICARE, SELFPAY | PROVIDERS: PCP Internal Medicine; Visit Provider Surgery Vascular Surgery | DX: I65.21 Occlusion and stenosis of right carotid artery (principal) | CPT/HCPCS: 99202 ==

== ENCOUNTER → 2025-03-31 08:46 | Outpatient (REF) | payer MEDICARE, SELFPAY ==
--- NOTE | ~2025-03-31 | NM_ITS ---
EXERCISE MYOCARDIAL PERFUSION STUDY INDICATION: Precordial chest pain to evaluate for myocardial ischemia TECHNIQUE: The patient was brought in for an exercise perfusion study on 03/31/2025. Patient performed exercise as per Giovani protocol and was injected 25 mCi of sestamibi once target heart rate was achieved. Images were obtained using the SPECT gamma camera interlaced with the gating device. Images were obtained in supine position. Resting perfusion study was performed on 04/01/2025. Patient was administered 25 mCi of sestamibi intravenously at rest. Images were then obtained in supine position. Images obtained without without CT attenuation. Total DLP 97 mGy-cm. Images were processed with the software and compared side to side in short axis, horizontal long axis and vertical long axis views. FINDINGS: Raw images were reviewed. Both attenuated as well as nonattenuated corrected images were suboptimal due to intense subdiaphragmatic uptake of the gastric uptake interfering with inferior and inferolateral wall uptake prominent on resting perfusion study as well as arms by the side position affecting lateral wall uptake The stress perfusion study showed nonattenuated images show some thinning of the lateral wall of the LV myocardium with moderately reduced uptake in the basal inferior wall of the LV function. Attenuated corrected images show moderately reduced uptake in the inferior wall of the LV myocardium as well as mildly reduced uptake in the distal septum of the LV myocardium.. The gated study shows low normal LV systolic function with calculated LVEF of 52%. LV cavity is mildly dilated in size. The gated study shows normal systolic wall thickening and contraction of segments. Resting study shows nonattenuated images show no change in perfusion pattern compared to stress perfusion study. Gating at rest reveals normal systolic wall motion with ejection fraction at 51%. The findings are consistent with no reversible defect seen on nonattenuated images. Likely normal myocardial perfusion. NM/NM cardiolite stress test IMPRESSION: 1. Myocardial perfusion imaging study shows likely normal myocardial perfusion. 2. Gated LVEF is 52%. 3. Transient ischemic dilatation not present but LV cavity is dilated. EKG revealed negative for ischemia. Electronically signed by: Pete Granado MD 04/01/2025 03:44 PM EDT
--- NOTE | 2025-03-31 08:50 | CA_ITS ---
Acquisition Time: 2025-03-31 09:20:52 Total Exercise Time: 00:05:00 Test Indications: CAROTID STENOSIS,Pre-Op Evaluation,Syncope Medications: AMLODIPINE ASA ATORVASTATIN OMEPRAZOLE TAMSULOSIN Protocol: RADHA Max HR: 151 BPM 104% of Pred: 144 BPM Max BP: 142/84 mmHG Max Work Load: 4.6 METS Exercise stress test with exercise 5 mins of Radha Protocol, achieving 100% MPHR, with reports of SOB, no chest pin, with frequent PACs and PVCs, with ventricular couplets and one 5 beat PVCs, with normotensive response to exercise. Without any EKG changes meeting criteria for ischemia. In recovery, pt's breathing returned to baseline. Nuclear images pending. Test reviewed with Dr. Granado. Referred By: Jonathan Manley Electronically Signed By: Curt Kahn
--- OUTSIDE RECORDS SUMMARY | 2025-03-31 09:10 | XMS_ITS | Encounter Summary ---
Author Organization [facility] [place], Address [address] [place] [address] Phone Care Team Providers Care Supercharger Repair Supervisor Name Role Phone Luly Newton MD Primary Care Provider [phone] Encounter Details Date Type Department Care Team (Late st Contact Info) Description 03/06/2025 Orders Only [facility] [address] [place] [address] Daniel Dumont DO [address] [facility] [place] [address] Hyponatremia; Hypertension Social History Tobacco [...] [facility] [address] [place] [address] Daniel Dumont DO [address] [facility] [place] [address] documented as of this encounter Visit Diagnoses Diagnosis Hyponatremia Hypertension documented in this encounter Care Teams Supercharger Repair Supervisor Relationship Specialty Start Date End Date Luly Newton MD [address] [place] [address] PCP - General Internal Medicine 02/13/23 documented as of this encounter
--- OUTSIDE RECORDS SUMMARY | 2025-03-31 09:11 | XMS_ITS | Encounter Summary ---
Author Organization [facility] [place], Address [address] [place] [address] Phone Care Team Providers Care Claims Administrator Name Role Phone Luly Newton MD Primary Care Provider [phone] Encounter Details Date Type Department Care Team (Late st Contact Info) Description 01/09/2025 Orders Only [facility] [address] [address] Daniel Dumont DO [address] [facility] [place] [address] Hyponatremia; Hypertension Social History Tobacco [...] Visit [facility] [address] [address] Daniel Dumont DO [address] [facility] [place] [address] documented as of this encounter Visit Diagnoses Diagnosis Hyponatremia Hypertension documented in this encounter Care Teams Claims Administrator Relationship Specialty Start Date End Date Luly Newton MD [address] [place] [address] PCP - General Internal Medicine 02/13/23 documented as of this encounter
--- OUTSIDE RECORDS SUMMARY | 2025-03-31 09:11 | XMS_ITS | Encounter Summary ---
Author Organization [facility] [place], Address [address] [place] [address] Phone Care Team Providers Care Folder Tier Name Role Phone Luly Newton MD Primary Care Provider [phone] Encounter Details Date Type Department Care Team (Late st Contact Info) Description 06/20/2024 Orders Only [facility] [address] [place] [address] Daniel Dumont DO [address] [facility] [place] [address] Hyponatremia; Hypertension Social History Tobacco [...] Visit [facility] [address] [place] [address] Daniel Dumont DO [address] [facility] [place] [address] documented as of this encounter Visit Diagnoses Diagnosis Hyponatremia Hypertension documented in this encounter Care Teams Folder Tier Relationship Specialty Start Date End Date Luly Newton MD [address] [place] [address] PCP - General Internal Medicine 02/13/23 documented as of this encounter
--- OUTSIDE RECORDS SUMMARY | 2025-03-31 09:11 | XMS_ITS | Encounter Summary ---
Author Organization [facility] [place], Address [address] [place] [address] Phone Care Team Providers Care Tea Plantation Worker Name Role Phone Luly Newton MD Primary Care Provider [phone] Encounter Details Date Type Department Care Team (Late st Contact Info) Description 11/30/2023 Orders Only [facility] [address] [place] [address] Daniel Dumont DO [address] [facility] [place] [address] Hyponatremia Social History Tobacco Use [...] Visit [facility] [address] [place] [address] Daniel Dumont DO [address] [facility] [place] [address] documented as of this encounter Visit Diagnoses Diagnosis Hyponatremia documented in this encounter Care Teams Tea Plantation Worker Relationship Specialty Start Date End Date Luly Newton MD [address] [place] [address] 104 [place] [address] PCP - General Internal Medicine 02/13/23 documented as of this encounter
--- OUTSIDE RECORDS SUMMARY | 2025-03-31 09:11 | XMS_ITS | Encounter Summary ---
Author Organization [facility] Address [address] [place] [address] Phone Care Team Providers Care Composition Floor Layer Name Role Phone Luly Newton MD Primary Care Provider [phone] Encounter Details Date Type Department Care Team (Late st Contact Info) Description 03/21/2024 Orders Only [facility] [address] [place] [address] Daniel Dumont DO [address] [facility] [place] [address] Hyponatremia Social History Tobacco Use [...] Visit [facility] [address] [facility] [place] [address] Daniel Dumont DO [address] [facility] [place] [address] documented as of this encounter Visit Diagnoses Diagnosis Hyponatremia documented in this encounter Care Teams Composition Floor Layer Relationship Specialty Start Date End Date Luly Newton MD [address] [place] [address] 104 [place] [address] PCP - General Internal Medicine 02/13/23 documented as of this encounter
--- OUTSIDE RECORDS SUMMARY | 2025-03-31 09:11 | XMS_ITS | Encounter Summary ---
Author Organization [facility] Address [address] [place] [address] Phone Care Team Providers Care Home Health Aid Name Role Phone Luly Newton MD Primary Care Provider [phone] Encounter Details Date Type Department Care Team (Late st Contact Info) Description 11/02/2023 Orders Only [facility] [address] [place] [address] Daniel Dumont DO [address] [facility] [place] [address] Hyponatremia Social History Tobacco Use [...] Of [facility] [address] [place] [address] Daniel Dumont DO [address] [facility] [place] [address] documented as of this encounter Visit Diagnoses Diagnosis Hyponatremia documented in this encounter Care Teams Home Health Aid Relationship Specialty Start Date End Date Luly Newton MD [address] [place] [address] 104 [place] [address] PCP - General Internal Medicine 02/13/23 documented as of this encounter
--- OUTSIDE RECORDS SUMMARY | 2025-03-31 09:11 | XMS_ITS | Encounter Summary ---
Author Organization [facility] [place], Address [address] [place] [address] Phone Care Team Providers Care Completions Engineer Name Role Phone Luly Newton MD Primary Care Provider [phone] Encounter Details Date Type Department Care Team (Late st Contact Info) Description 09/12/2024 Orders Only [facility] [address] [place] [place] [address] Daniel Dumont DO [address] [facility] [address] [place] [address] Hyponatremia; Hypertension Social History Tobacco [...] Visit [facility] [address] [place] [place] [address] Daniel Dumont DO [address] [facility] [place] [address] documented as of this encounter Visit Diagnoses Diagnosis Hyponatremia Hypertension documented in this encounter Care Teams Completions Engineer Relationship Specialty Start Date End Date Luly Newton MD [address] [place] [address] PCP - General Internal Medicine 02/13/23 documented as of this encounter
--- OUTSIDE RECORDS SUMMARY | 2025-03-31 09:11 | XMS_ITS | Encounter Summary ---
Author Organization [facility] [place], Address [address] [place] [address] Phone Care Team Providers Care Principal Product Manager Name Role Phone Luly Newton MD Primary Care Provider [phone] Encounter Details Date Type Department Care Team (Late st Contact Info) Description 01/04/2024 Orders Only [facility] [address] [facility] [place] [address] Daniel Dumont DO [address] [facility] [place] [address] Hyponatremia; Hypertension Social History Tobacco [...] Care [facility] [address] [address] [facility] [place] [address] Daniel Dumont DO [address] [facility] [place] [address] documented as of this encounter Visit Diagnoses Diagnosis Hyponatremia Hypertension documented in this encounter Care Teams Principal Product Manager Relationship Specialty Start Date End Date Luly Newton MD [address] [place] [address] PCP - General Internal Medicine 02/13/23 documented as of this encounter
--- OUTSIDE RECORDS SUMMARY | 2025-03-31 09:11 | XMS_ITS | Encounter Summary ---
Author Organization [facility] Address [address] [place] [address] Phone Care Team Providers Care Cover Cutter Name Role Phone Luly Newton MD Primary Care Provider [phone] Encounter Details Date Type Department Care Team (Late st Contact Info) Description 12/28/2023 Orders Only [facility] [address] [place] [address] Daniel Dumont DO [address] [facility] [place] [address] Hyponatremia Social History Tobacco Use [...] Visit [facility] [address] [place] [address] Daniel Dumont DO [address] [facility] [place] [address] documented as of this encounter Visit Diagnoses Diagnosis Hyponatremia documented in this encounter Care Teams Cover Cutter Relationship Specialty Start Date End Date Luly Newton MD [address] [place] [address] 104 [place] [address] PCP - General Internal Medicine 02/13/23 documented as of this encounter
--- OUTSIDE RECORDS SUMMARY | 2025-03-31 09:11 | XMS_ITS | Encounter Summary ---
Author Organization [facility] [place], Address [address] [place] [address] Phone Care Team Providers Care Psychodramatist Name Role Phone Luly Newton MD Primary Care Provider [phone] Encounter Details Date Type Department Care Team (Late st Contact Info) Description 07/13/2023 Orders Only [facility] [address] [place] [address] Daniel Dumont DO [address] [place] [address] Hyponatremia Social History Tobacco Use [...] Visit [facility] [address] [place] [address] Daniel Dumont DO [address] [place] [address] documented as of this encounter Visit Diagnoses Diagnosis Hyponatremia documented in this encounter Care Teams Psychodramatist Relationship Specialty Start Date End Date Luly Newton MD [address] [place] [address] 104 [place] [address] PCP - General Internal Medicine 02/13/23 documented as of this encounter
--- OUTSIDE RECORDS SUMMARY | 2025-03-31 09:11 | XMS_ITS | Clinical Summary ---
Author Organization [facility] Address [address] [facility] [address] [place] [address] Phone Care Team Providers Care Scientific Associate Name Role Phone Shabana Newton MD Primary Care Provider [phone] Allergies Active Allergy Reactions Criticality Noted Date [...] [place]ACEMENT Care Teams Scientific Associate Relationship Specialty Start Date End Date Shabana Newton MD [address] [place] [address] PCP - General Internal Medicine 06/23/19 Additional Source Comments The information contained in this document represents components of the legal health record. It is not the complete legal health record.[facility]
--- OUTSIDE RECORDS SUMMARY | 2025-03-31 09:11 | XMS_ITS | Encounter Summary ---
Author Organization [facility] Address [address] [place] [address] Phone Care Team Providers Care Weight Recorder Name Role Phone Luly Newton MD Primary Care Provider [phone] Encounter Details Date Type Department Care Team (Late st Contact Info) Description 02/22/2024 Orders Only [facility] [address] [address] Daniel Dumont DO [address] [facility] [address] [place] [address] Hyponatremia Social History Tobacco Use [...] Of [facility] [address] [place] [address] Daniel Dumont DO [address] [place] [address] documented as of this encounter Visit Diagnoses Diagnosis Hyponatremia documented in this encounter Care Teams Weight Recorder Relationship Specialty Start Date End Date Luly Newton MD [address] [place] [address] 104 [place] [address] PCP - General Internal Medicine 02/13/23 documented as of this encounter
--- OUTSIDE RECORDS SUMMARY | 2025-03-31 09:11 | XMS_ITS | Encounter Summary ---
Author Organization [facility] Address [address] [place] [address] Phone Care Team Providers Care Pit Manager Name Role Phone Luly Newton MD Primary Care Provider [phone] Encounter Details Date Type Department Care Team (Late st Contact Info) Description 02/28/2024 Documentation Only [facility] [address] [facility] [place] [address] [place] [address] [place] [address] Social History Tobacco Use Types [...] Visit [facility] [address] [facility] [place] [address] Daniel Dumont [address] [address] documented as of this encounter Visit Diagnoses Not on filedocumented in this encounter Care Teams Pit Manager Relationship Specialty Start Date End Date Luly Newton MD [address] [place] [address] 104 [place] [address] PCP - General Internal Medicine 02/13/23 documented as of this encounter
--- OUTSIDE RECORDS SUMMARY | 2025-03-31 09:11 | XMS_ITS | Encounter Summary ---
Author Organization [facility] [place], Address [address] [place] [address] Phone Care Team Providers Care Marble Cutter Name Role Phone Luly Newton MD Primary Care Provider [phone] Encounter Details Date Type Department Care Team (Late st Contact Info) Description 01/25/2024 Orders Only [facility] [address] [place] [address] Daniel Dumont DO [address] [place] [address] Hyponatremia Social History Tobacco Use [...] Visit [facility] [address] [place] [address] Daniel Dumont DO [address] [place] [address] documented as of this encounter Procedures Procedure Name Priority Date/Time Associated Diagnosis Comments RENAL FUNCTION PANEL Routine 11/19/2024 10:33 AM EDT documented in this encounter Results * (ABNORMAL) Renal Function Panel (11/19/2024 10:33 AM EDT) Glucose 89 70 - 99 mg/dL [facility] BUN 15 8 - 27 mg/dL [facility] Creatinine 0.79 0.76 - 1.27 mg/dL [facility] eGFR CKD-EPI CR 2020 93 >59 mL/min/1.7 3 [facility] BUN/Creatinine Ratio 19 10 - 24 [facility] Sodium 131(L) 134 - 144 mmol/L [facility] Potassium 3.7 3.5 - 5.2 mmol/L [facility] Chloride 90(L) 96 - 106 mmol/L [facility] Bicarbonate (CO2) 22 20 - 29 mmol/L [facility] Calcium 9.9 8.6 - 10.2 mg/dL [facility] Albumin 5.1(H) 3.8 - 4.8 g/dL [facility] Phosphorus 3.2 2.8 - 4.1 mg/dL [facility] 11/19/2024 10:3 3 AM EDT 11/19/2024 us Daniel Dumont DO LAB BLOOD ORDERABLES Final Resu lt [facility] [address] [place] [address] documented in this encounter Visit Diagnoses Diagnosis Hyponatremia documented in this encounter Care Teams Marble Cutter Relationship Specialty Start Date End Date Luly Newton MD [address] [place] [address], [address] [place] [address] PCP - General Internal Medicine 02/13/23 documented as of this encounter
--- OUTSIDE RECORDS SUMMARY | 2025-03-31 09:11 | XMS_ITS | Encounter Summary ---
Author Organization [facility] Address [address] [place] [address] Phone Care Team Providers Care Dispatcher Radio Name Role Phone Luly Newton MD Primary Care Provider [phone] Encounter Details Date Type Department Care Team (Late st Contact Info) Description 08/10/2023 Orders Only [facility] [address] [place] [address] Daniel Dumont DO [address] [place] [address] Hyponatremia Social History Tobacco Use [...] Visit [facility] [address] [place] [address] Daniel Dumont DO [address] [place] [address] Scheduled Orders Name Type Priority [...] 11:07 AM EDT Performed at: 01 - [address] [id number] Appeals Assistant: La Haile MD, Phone: [phone] us Daniel Dumont DO LAB [id number] LICITED RESULTS Final Result [facility] documented in this encounter Visit Diagnoses Diagnosis Hyponatremia documented in this encounter Care Teams Dispatcher Radio Relationship Specialty Start Date End Date Luly Newton MD [address] [place] [address] [address] [place] [id number] PCP - General Internal Medicine 02/13/23 documented as of this encounter
--- OUTSIDE RECORDS SUMMARY | 2025-03-31 09:11 | XMS_ITS | Encounter Summary ---
Author Organization [facility] [place], Address [address] [place] [address] Phone Care Team Providers Care Director Life Sciences Name Role Phone Luly Newton MD Primary Care Provider [phone] Encounter Details Date Type Department Care Team (Late st Contact Info) Description 09/07/2023 Orders Only [facility] [address] [place] [address] Daniel Dumont DO [address] [place] [address] Hyponatremia Social History Tobacco Use [...] Visit [facility] [address] [place] [address] Daniel Dumont DO [address] [place] [address] documented as of this encounter Visit Diagnoses Diagnosis Hyponatremia documented in this encounter Care Teams Director Life Sciences Relationship Specialty Start Date End Date Luly Newton MD [address] [place] [address] 104 [place] [address] PCP - General Internal Medicine 02/13/23 documented as of this encounter
--- OUTSIDE RECORDS SUMMARY | 2025-03-31 09:11 | XMS_ITS | Encounter Summary ---
Author Organization [facility] [place], Address [address] [place] [address] Phone Care Team Providers Care Human Resources Operations Manager Name Role Phone Luly Newton MD Primary Care Provider [phone] Encounter Details Date Type Department Care Team (Late st Contact Info) Description 04/30/2024 Documentation Only [facility] [address] [place] [address] Daniel Dumont DO [address] [facility] [place] [address] Social History Tobacco Use Types [...] [facility] [address] [place] [address] Daniel Dumont DO [address] [facility] [place] [address] documented as of this encounter Visit Diagnoses Not on filedocumented in this encounter Care Teams Human Resources Operations Manager Relationship Specialty Start Date End Date Luly Newton MD [address] [place] [address] 104 [place] [address] PCP - General Internal Medicine 02/13/23 documented as of this encounter
--- OUTSIDE RECORDS SUMMARY | 2025-03-31 09:11 | XMS_ITS | Encounter Summary ---
Author Organization [facility] [place], Address [address] [place] [address] Phone Care Team Providers Care Or Manager Name Role Phone Luly Newton MD Primary Care Provider [phone] Encounter Details Date Type Department Care Team (Late st Contact Info) Description 10/05/2023 Orders Only [facility] [address] [place] [address] Daniel Dumont DO [address] [facility] [address] [place] [address] Hyponatremia Social History Tobacco Use [...] Visit [facility] [address] [address] Daniel Dumont DO [address] [place] [address] documented as of this encounter Visit Diagnoses Diagnosis Hyponatremia documented in this encounter Care Teams Or Manager Relationship Specialty Start Date End Date Luly Newton MD [address] [place] [address] 104 [place] [address] PCP - General Internal Medicine 02/13/23 documented as of this encounter
--- OUTSIDE RECORDS SUMMARY | 2025-03-31 09:11 | XMS_ITS | Encounter Summary ---
Author Organization [facility] [place], Address [address] [place] [address] Phone Care Team Providers Care Platform Power Technician Name Role Phone Luly Newton MD Primary Care Provider [phone] Encounter Details Date Type Department Care Team (Late st Contact Info) Description 03/28/2024 Orders Only [facility] [address] [place] [address] Daniel Dumont DO [address] [facility] [place] [address] Hyponatremia; Hypertension Social History Tobacco [...] [facility] [address] [place] [address] Daniel Dumont DO [address] [facility] [place] [address] documented as of this encounter Visit Diagnoses Diagnosis Hyponatremia Hypertension documented in this encounter Care Teams Platform Power Technician Relationship Specialty Start Date End Date Luly Newton MD [address] [place] [address] PCP - General Internal Medicine 02/13/23 documented as of this encounter
--- OUTSIDE RECORDS SUMMARY | 2025-03-31 09:11 | XMS_ITS | Encounter Summary ---
Author Organization [facility] [place], Address [address] [place] [address] Phone Care Team Providers Care Lockstitch Lining Setter Name Role Phone Luly Newton MD Primary Care Provider [phone] Encounter Details Date Type Department Care Team (Late st Contact Info) Description 06/01/2023 Documentation Only [facility] [address] [facility] [place] [address] Daniel Dumont DO [address] [facility] [place] [address] Social History Tobacco Use [...] Visit [facility] [address] [place] [address] Daniel Dumont DO [address] [facility] [place] [address] documented as of this encounter Visit Diagnoses Not on filedocumented in this encounter Care Teams Lockstitch Lining Setter Relationship Specialty Start Date End Date Luly Newton MD [address] [place] [address] 104 [place] [address] PCP - General Internal Medicine 02/13/23 documented as of this encounter
--- OUTSIDE RECORDS SUMMARY | 2025-03-31 09:11 | XMS_ITS | Clinical Summary ---
Author Organization [facility] [place], Address [address] [place] [address] [place] [address] Phone Care Team Providers Care Skin Piler Name Role Phone Luly Newton MD Primary Care Provider [phone] Allergies Active Allergy Reactions Criticality Noted Date [...] AND ONE TABLET BEFORE BEDTIME. 90 tablet 02/26/2025 Active Active Problems Problem Noted Date Diagnosed Date H/O: urinary disease 11/19/2024 Acute kidney failure with tubular necrosis 02/14 Hypertension 02/13/2023 Hyponatremia 02/13/2023 Encounters Date Type Department Care Team Description 03/06/2025 Orders Only [facility] [address] [place] [address] Daniel Dumont DO Hyponatremia; Hypertension 02/26/2025 Refill [facility] [address] [place] [address] Daniel Dumont DO 01/09/2025 Orders Only [facility] [address] [place] [address] Daniel Dumont DO Hyponatremia; Hypertension 01/07/2025 Refill [facility] [address] [place] [address] Daniel Dumont, from Last 3 Months Immunizations Immunization Administration [...] Visit [facility] [place], [address] [facility] [place] [address] Daniel Dumont, DO [address] [place] [address] Health Maintenance Due Date Last Done Comments Pneumococcal Vaccine: 50+ Ye ars (2 of 2 - PCV) 05/18/2018 05/18/2017 Influenza Vaccine (#1) 2025 Hepatitis B Vaccine Aged Out No longe r eligible based on patient's age to complete this topic Insurance [facility] Care Teams Skin Piler Relationship Specialty Start Date End Date Luly Newton MD [address] [place] [address], [facility] 104 [place] [address] PCP - General Internal Medicine 02/13/23
--- OUTSIDE RECORDS SUMMARY | 2025-03-31 09:11 | XMS_ITS | Encounter Summary ---
Author Organization [facility] [place], Address [address] [place] [address] Phone Care Team Providers Care Gasket Inspector Name Role Phone Luly Newton MD Primary Care Provider [phone] Encounter Details Date Type Department Care Team (Late st Contact Info) Description 07/11/2023 Documentation Only [facility] [address] [facility] [place] [address] Daniel Dumont DO [address] [facility] [facility] [place] [address] Social History Tobacco Use Types [...] Visit [facility] [address] [place] [address] Daniel Dumont DO [address] [facility] [place] [address] documented as of this encounter Visit Diagnoses Not on filedocumented in this encounter Care Teams Gasket Inspector Relationship Specialty Start Date End Date Luly Newton MD [address] [place] [address] 104 [place] [address] PCP - General Internal Medicine 02/13/23 documented as of this encounter
--- OUTSIDE RECORDS SUMMARY | 2025-03-31 09:12 | XMS_ITS | Encounter Summary ---
Author Organization [facility] [place], Address [address] [place] [address] Phone Care Team Providers Care Senior Copywriter Name Role Phone Luly Newton MD Primary Care Provider [phone] Encounter Details Date Type Department Care Team (Late st Contact Info) Description 02/14/2023 Documentation Only [facility] [address] [place] [address] Luly Newton MD [address] [place] [address] Social History Tobacco Use Types Packs/Day Years [...] [facility] [address] [place] [address] Daniel Dumont [address] [place] [address] documented as of this encounter Visit Diagnoses Not on filedocumented in this encounter Care Teams Senior Copywriter Relationship Specialty Start Date End Date Luly Newton MD [address] [place] [address] PCP - General Internal Medicine 02/13/23 documented as of this encounter
--- OUTSIDE RECORDS SUMMARY | 2025-03-31 09:12 | XMS_ITS | Encounter Summary ---
Author Organization [facility] Address [address] [facility] [address] [place] [address] Phone Care Team Providers Care Shop Fitter Name Role Phone Shabana Newton MD Primary Care Provider [phone] Encounter Details Date Type Department Care Team (Late st Contact Info) Description 07/23/2019 Procedure Pass [facility] Endoscopy Admitting Dept Virtual Department [address] [place] [address] Social History Tobacco Use Types Packs/Day Years [...] on filedocumented in this encounter Care Teams Shop Fitter Relationship Specialty Start Date End Date Shabana Newton MD [address] [place] [address] 104 [place] [address] PCP - General Internal Medicine 06/23/19 documented as of this encounter Additional Source Comments The information contained in this document represents components of the legal health record. It is not the complete legal health record.[facility]
--- OUTSIDE RECORDS SUMMARY | 2025-03-31 09:12 | XMS_ITS | Encounter Summary ---
Author Organization [facility] [place], Address [address] [place] [address] Phone Care Team Providers Care Traffic Sign Erection Supervisor Name Role Phone Luly Newton MD Primary Care Provider [phone] Encounter Details Date Type Department Care Team (Late st Contact Info) Description 02/13/2023 Documentation Only [facility] [address] [place] [address] Daniel Dumont DO [address] [facility] [place] [address] Social [...] Visit [facility] [address] [place] [address] Daniel Dumont DO [address] [address] [place] [address] documented as of this encounter Visit Diagnoses Not on filedocumented in this encounter Care Teams Traffic Sign Erection Supervisor Relationship Specialty Start Date End Date Luly Newton MD [address] [place] [address] 104 [place] [address] PCP - General Internal Medicine 02/13/23 documented as of this encounter
--- OUTSIDE RECORDS SUMMARY | 2025-03-31 09:12 | XMS_ITS | Encounter Summary ---
Author Organization [facility] [place], Address [address] [place] [address] Phone Care Team Providers Care Cloth Finisher Name Role Phone Luly Newton MD Primary Care Provider [phone] Encounter Details Date Type Department Care Team (Late st Contact Info) Description 02/09/2023 Documentation Only [facility] [address] [facility] [place] [address] Daniel Dumont DO [address] [facility] [place] [address] Social History Tobacco Use Types [...] Visit [facility] [address] [place] [address] Daniel Dumont DO [address] [facility] [place] [address] documented as of this encounter Visit Diagnoses Not on filedocumented in this encounter Care Teams Cloth Finisher Relationship Specialty Start Date End Date Luly Newton MD [address] [place] [address] 104 [place] [address] PCP - General Internal Medicine 02/13/23 documented as of this encounter
--- OUTSIDE RECORDS SUMMARY | 2025-03-31 09:12 | XMS_ITS | Encounter Summary ---
Author Organization [facility] Address [address] [facility] [address] [place] [address] Phone Care Team Providers Care Global Marketing Coordinator Name Role Phone Shabana Newton MD Primary Care Provider [phone] Encounter Details Date Type Department Care Team (Late st Contact Info) Description 06/23/2019 Procedure Pass [facility] Endoscopy Admitting Dept Virtual Department [address] [place] [address] Social History Tobacco Use Types Packs/Day Years [...] on filedocumented in this encounter Care Teams Global Marketing Coordinator Relationship Specialty Start Date End Date Shabana Newton MD [address] [place] [address] 104 [place] [address] PCP - General Internal Medicine 06/23/19 documented as of this encounter Additional Source Comments The information contained in this document represents components of the legal health record. It is not the complete legal health record.[facility]
--- OUTSIDE RECORDS SUMMARY | 2025-03-31 09:12 | XMS_ITS | Encounter Summary ---
Author Organization [facility] [place], Address [address] [place] [address] Phone Care Team Providers Care Landfill Gas Plant Field Technician Name Role Phone Luly Newton MD Primary Care Provider [phone] Encounter Details Date Type Department Care Team (Late st Contact Info) Description 01/27/2023 Documentation Only [facility] [address] [place] [address] Daniel Dumont DO [address] [facility] [place] [address] Social History Tobacco Use Types [...] Visit [facility] [address] [place] [address] Daniel Dumont DO [address] [facility] [place] [address] documented as of this encounter Visit Diagnoses Not on filedocumented in this encounter Care Teams Landfill Gas Plant Field Technician Relationship Specialty Start Date End Date Luly Newton MD [address] [place] [address] 104 [place] [address] PCP - General Internal Medicine 02/13/23 documented as of this encounter
--- OUTSIDE RECORDS SUMMARY | 2025-03-31 09:12 | XMS_ITS | Encounter Summary ---
Author Organization [facility] [place], Address [address] [place] [address] Phone Care Team Providers Care Engineering Systems Analyst Name Role Phone Luly Newton MD Primary Care Provider [phone] Encounter Details Date Type Department Care Team (Late st Contact Info) Description 04/04/2023 Documentation Only [facility] [address] [place] [address] Daniel Dumont DO [address] [facility] [place] [address] Social History Tobacco Use Types [...] Visit [facility] [address] [place] [address] Daniel Dumont DO [address] [place] [address] documented as of this encounter Visit Diagnoses Not on filedocumented in this encounter Care Teams Engineering Systems Analyst Relationship Specialty Start Date End Date Luly Newton MD [address] [place] [address] [address] [place] [address] PCP - General Internal Medicine 02/13/23 documented as of this encounter
--- OUTSIDE RECORDS SUMMARY | 2025-03-31 09:12 | XMS_ITS | Encounter Summary ---
Author Organization [facility] [place], Address [address] [place] [address] Phone Care Team Providers Care Decision Analyst Name Role Phone Luly Newton MD Primary Care Provider [phone] Encounter Details Date Type Department Care Team (Late st Contact Info) Description 02/13/2023 Documentation Only [facility] [address] [place] [address] Daniel Dumont DO [address] [facility] [place] [address] Social History Tobacco Use Types [...] Visit [facility] [address] [place] [address] Daniel Dumont DO [address] [facility] [place] [address] documented as of this encounter Visit Diagnoses Not on filedocumented in this encounter Care Teams Decision Analyst Relationship Specialty Start Date End Date Luly Newton MD [address] [place] [address] [address] [place] [address] PCP - General Internal Medicine 02/13/23 documented as of this encounter
== END ==
LOC: HO.CARD 08:46
PROVIDERS: PCP Internal Medicine; Visit Provider Internal Medicine
DX: Z01.810 Encounter for preprocedural cardiovascular examination (principal); R07.2 Precordial pain; I65.21 Occlusion and stenosis of right carotid artery; R55 Syncope and collapse
CPT/HCPCS: 78452; 93017; A9500; J0280; J2785

== ENCOUNTER → 2025-03-31 08:50 | Outpatient (BNV) | payer MEDICARE, SELFPAY | PROVIDERS: PCP Internal Medicine | DX: I49.1 Atrial premature depolarization (principal); I49.3 Ventricular premature depolarization; R06.02 Shortness of breath | CPT/HCPCS: 78452; 93016; 93018 ==

== ENCOUNTER → 2025-04-03 10:53 | Outpatient (REF) | payer MEDICARE, SELFPAY ==
--- OUTSIDE RECORDS SUMMARY | 2025-04-03 12:42 | XMS_ITS | Encounter Summary ---
Author Organization [facility] [place], Address [address] [place] [address] Phone Care Team Providers Care Vice President Quality Assurance Name Role Phone Luly Newton MD Primary Care Provider [phone] Encounter Details Date Type Department Care Team (Late st Contact Info) Description 03/06/2025 Orders Only [facility] [address] [place] [address] Daniel Dumont DO [address] [facility] [place] [address] Hyponatremia; Hypertension Social History Tobacco [...] Visit [facility] [address] [place] [address] Daniel Dumont DO [address] [facility] [place] [address] documented as of this encounter Visit Diagnoses Diagnosis Hyponatremia Hypertension documented in this encounter Care Teams Vice President Quality Assurance Relationship Specialty Start Date End Date Luly Newton MD [address] [place] [address] PCP - General Internal Medicine 02/13/23 documented as of this encounter
--- OUTSIDE RECORDS SUMMARY | 2025-04-03 12:42 | XMS_ITS | Encounter Summary ---
Author Organization [facility] [place], Address [address] [place] [address] Phone Care Team Providers Care Associate Professor Of Violin Name Role Phone Luyl Newton MD Primary Care Provider [phone] Encounter Details Date Type Department Care Team (Late st Contact Info) Description 01/09/2025 Orders Only [facility] [address] [place] [address] Daniel Dumont DO [address] [place] [address] Hyponatremia; Hypertension Social History Tobacco [...] Visit [facility] [address] [place] [address] Daniel Dumont DO [address] [place] [address] documented as of this encounter Visit Diagnoses Diagnosis Hyponatremia Hypertension documented in this encounter Care Teams Associate Professor Of Violin Relationship Specialty Start Date End Date Luly Newton MD [address] [place] [address] PCP - General Internal Medicine 02/13/23 documented as of this encounter
--- OUTSIDE RECORDS SUMMARY | 2025-04-03 12:42 | XMS_ITS | Encounter Summary ---
Author Organization [facility] [place], Address [address] [place] [address] Phone Care Team Providers Care Rn Bariatric Name Role Phone Luly Newton MD Primary Care Provider [phone] Encounter Details Date Type Department Care Team (Late st Contact Info) Description 06/01/2023 Documentation Only [facility] [address] [place] [address] Daniel Dumont DO [address] [facility] [place] [address] Social History Tobacco Use Types [...] Visit [facility] [address] [place] [address] Daniel Dumont DO [address] [place] [address] documented as of this encounter Visit Diagnoses Not on filedocumented in this encounter Care Teams Rn Bariatric Relationship Specialty Start Date End Date Luly Newton MD [address] [place] [address] [address] [place] [address] PCP - General Internal Medicine 02/13/23 documented as of this encounter
--- OUTSIDE RECORDS SUMMARY | 2025-04-03 12:42 | XMS_ITS | Encounter Summary ---
Author Organization [facility] [place], Address [address] [place] [address] Phone Care Team Providers Care Chute Puller Name Role Phone Luly Newton MD Primary Care Provider [phone] Encounter Details Date Type Department Care Team (Late st Contact Info) Description 07/11/2023 Documentation Only [facility] [address] [place] [address] Daniel Dumont DO [address] [facility] [place] [address] Social History Tobacco Use Types [...] Visit [facility] [address] [place] [address] Daniel Dumont DO [address] [facility] [place] [address] documented as of this encounter Visit Diagnoses Not on filedocumented in this encounter Care Teams Chute Puller Relationship Specialty Start Date End Date Luly Newton MD [address] [place] [address] 104 [place] [address] PCP - General Internal Medicine 02/13/23 documented as of this encounter
--- OUTSIDE RECORDS SUMMARY | 2025-04-03 12:42 | XMS_ITS | Data Portability ---
Author Organization [facility], [id number] Address [address] [place] [address] Assessment No assessment recorded. Plan of Treatment [...] ICD10 Code Diagnosis IMO Codes Diagnosis Note [id number] [address] [place] [address] 05/14/2017 08:53:48 05/14/2017 10:00:32 [id number] [address] [place] [address] 06/23/2019 13:48:02 06/23/2019 15:14:27 [id number] [address] [place] [address] 10/20/2020 15:26:32 10/20/2020 16:16:34 [id number] [address] [place] [address] 07/22/2020 12:46:34 07/22/2020 13:52:23 Health Concerns Section Related Observation LastModified by Organization Detai ls LastModified Time None Recorded Concern Status LastModified by Organization Details LastModified Time None Recorded Advance Directives Directive None Recorded Payers Insurance Date Sequence Insurance Name Policy Number Policy Hillman Covered Member ID Hillman Member ID Guarantor Name 06/01/2022 1 [facility]: [place] BLUE (MEDICARE REPLACEMENT PPO) [id number] Luis Angel Scott [id number] Luis Angel Scott
--- OUTSIDE RECORDS SUMMARY | 2025-04-03 12:42 | XMS_ITS | Encounter Summary ---
Author Organization [facility] Address [address] [place] [address] Phone Care Team Providers Care Carpet Sewer Name Role Phone Luly Newton MD Primary Care Provider [phone] Encounter Details Date Type Department Care Team (Late st Contact Info) Description 08/10/2023 Orders Only [facility] [address] [place] [address] Daniel Dumont DO [address] [facility] [place] [address] Hyponatremia Social History Tobacco Use [...] Visit [facility] [address] [place] [address] Daniel Dumont DO [address] [facility] [place] [address] Scheduled Orders Name Type Priority [...] 11:07 AM EDT Performed at: 01 - [address] [id number] [employer]: La Haile MD, Phone: [phone] us Daniel Dumont DO LAB [id number] LICITED RESULTS Final Result [facility] documented in this encounter Visit Diagnoses Diagnosis Hyponatremia documented in this encounter Care Teams Carpet Sewer Relationship Specialty Start Date End Date Luly Newton MD [address] [place] [address] [address] [place] [id number] PCP - General Internal Medicine 02/13/23 documented as of this encounter
--- OUTSIDE RECORDS SUMMARY | 2025-04-03 12:42 | XMS_ITS | Encounter Summary ---
Author Organization [facility] [place], Address [address] [place] [address] Phone Care Team Providers Care Cleat Thrower Name Role Phone Luly Newton MD Primary Care Provider [phone] Encounter Details Date Type Department Care Team (Late st Contact Info) Description 07/13/2023 Orders Only [facility] [address] [place] [address] Daniel Dumont DO [address] [place] [address] Hyponatremia Social History Tobacco Use [...] Visit [facility] [address] [place] [address] Daniel Dumont DO [address] [place] [address] documented as of this encounter Visit Diagnoses Diagnosis Hyponatremia documented in this encounter Care Teams Cleat Thrower Relationship Specialty Start Date End Date Luly Newton MD [address] [place] [address] [address] [place] [address] PCP - General Internal Medicine 02/13/23 documented as of this encounter
--- OUTSIDE RECORDS SUMMARY | 2025-04-03 12:43 | XMS_ITS | Encounter Summary ---
Author Organization [facility] [place], Address [address] [place] [address] Phone Care Team Providers Care Gang Knife Fish Chopper Name Role Phone Luly Newton MD Primary Care Provider [phone] Encounter Details Date Type Department Care Team (Late st Contact Info) Description 10/05/2023 Orders Only [facility] [address] [place] [address] Daniel Dumont DO [address] [place] [address] Hyponatremia Social History Tobacco Use [...] Services Of [facility] [address] [place] [address] Daniel Dumont DO [address] [facility] [place] [address] documented as of this encounter Visit Diagnoses Diagnosis Hyponatremia documented in this encounter Care Teams Gang Knife Fish Chopper Relationship Specialty Start Date End Date Luly Newton MD [address] [place] [address] 104 [place] [address] PCP - General Internal Medicine 02/13/23 documented as of this encounter
--- OUTSIDE RECORDS SUMMARY | 2025-04-03 12:43 | XMS_ITS | Encounter Summary ---
Author Organization [facility] [place], Address [address] [place] [address] Phone Care Team Providers Care Foxing Closer Name Role Phone Luly Newton MD Primary Care Provider [phone] Encounter Details Date Type Department Care Team (Late st Contact Info) Description 04/30/2024 Documentation Only [facility] [address] [place] [address] Daniel Dumont DO [address] [facility] [place] [address] Social History Tobacco Use Types [...] Visit [facility] [address] [place] [address] Daniel Dumont DO [address] [place] [address] documented as of this encounter Visit Diagnoses Not on filedocumented in this encounter Care Teams Foxing Closer Relationship Specialty Start Date End Date Luly Newton MD [address] [place] [address] [address] [place] [address] PCP - General Internal Medicine 02/13/23 documented as of this encounter
--- OUTSIDE RECORDS SUMMARY | 2025-04-03 12:43 | XMS_ITS | Encounter Summary ---
Author Organization [facility] [place], Address [address] [place] [address] Phone Care Team Providers Care Motor Vehicle Assembler Name Role Phone Luly Newton MD Primary Care Provider [phone] Encounter Details Date Type Department Care Team (Late st Contact Info) Description 09/12/2024 Orders Only [facility] [address] [place] [address] Daniel Dumont DO [address] [facility] [place] [address] Hyponatremia; Hypertension Social History Tobacco [...] Visit [facility] [address] [place] [address] Daniel Dumont DO [address] [facility] [place] [address] documented as of this encounter Visit Diagnoses Diagnosis Hyponatremia Hypertension documented in this encounter Care Teams Motor Vehicle Assembler Relationship Specialty Start Date End Date Luly Newton MD [address] [place] [address] PCP - General Internal Medicine 02/13/23 documented as of this encounter
--- OUTSIDE RECORDS SUMMARY | 2025-04-03 12:43 | XMS_ITS | Encounter Summary ---
Author Organization [facility] [place], Address [address] [place] [address] Phone Care Team Providers Care Mangle Roller Name Role Phone Luly Newton MD Primary Care Provider Encounter Details Date Type Department Care Team (Late st Contact Info) Description 11/30/2023 Orders Only [facility] [address] [place] [address] Daniel Dumont DO [address] [facility] [place] [address] Hyponatremia Social History Tobacco Use [...] Visit [facility] [address] [place] [address] Daniel Dumont DO [address] [facility] [place] [address] documented as of this encounter Visit Diagnoses Diagnosis Hyponatremia documented in this encounter Care Teams Mangle Roller Relationship Specialty Start Date End Date Luly Newton MD [address] [place] [address] [address] [place] [address] PCP - General Internal Medicine 02/13/23 documented as of this encounter
--- OUTSIDE RECORDS SUMMARY | 2025-04-03 12:43 | XMS_ITS | Encounter Summary ---
Author Organization [facility] [place], Address [address] [place] [address] Phone Care Team Providers Care Electric Motor Repairer Name Role Phone Luly Newton MD Primary Care Provider [phone] Encounter Details Date Type Department Care Team (Late st Contact Info) Description 09/07/2023 Orders Only [facility] [address] [place] [address] Daniel Dumont DO [address] [facility] [place] [address] Hyponatremia Social History Tobacco Use [...] Visit [facility] [address] [place] [address] Daniel Dumont DO [address] [facility] [place] [address] documented as of this encounter Visit Diagnoses Diagnosis Hyponatremia documented in this encounter Care Teams Electric Motor Repairer Relationship Specialty Start Date End Date Luly Newton MD [address] [place] [address] [address] [place] [address] PCP - General Internal Medicine 02/13/23 documented as of this encounter
--- OUTSIDE RECORDS SUMMARY | 2025-04-03 12:43 | XMS_ITS | Encounter Summary ---
Author Organization [facility] Address [address] [place] [address] Phone Care Team Providers Care Electrical Helper Name Role Phone Luly Newton MD Primary Care Provider [phone] Encounter Details Date Type Department Care Team (Late st Contact Info) Description 02/22/2024 Orders Only [facility] [address] [place] [address] Daniel Dumont DO [address] [facility] [address] [place] [address] Hyponatremia Social History Tobacco Use [...] Visit [facility] [address] [place] [address] Daniel Dumont DO [address] [facility] [place] [address] documented as of this encounter Visit Diagnoses Diagnosis Hyponatremia documented in this encounter Care Teams Electrical Helper Relationship Specialty Start Date End Date Luly Newton MD [address] [place] [address] 104 [place] [address] PCP - General Internal Medicine 02/13/23 documented as of this encounter
--- OUTSIDE RECORDS SUMMARY | 2025-04-03 12:43 | XMS_ITS | Encounter Summary ---
Author Organization [facility] [place], Address [address] [place] [address] Phone Care Team Providers Care Tip Fixer Name Role Phone Luly Newton MD Primary Care Provider [phone] Encounter Details Date Type Department Care Team (Late st Contact Info) Description 03/21/2024 Orders Only [facility] [address] [place] [address] Daniel Dumont DO [address] [facility] [place] [address] Hyponatremia Social History Tobacco Use [...] Visit [facility] [address] [place] [address] Daniel Dumont DO [address] [facility] [address] [place] [address] documented as of this encounter Visit Diagnoses Diagnosis Hyponatremia documented in this encounter Care Teams Tip Fixer Relationship Specialty Start Date End Date Luly Newton MD [address] [place] [address] 104 [place] [address] PCP - General Internal Medicine 02/13/23 documented as of this encounter
--- OUTSIDE RECORDS SUMMARY | 2025-04-03 12:43 | XMS_ITS | Encounter Summary ---
Author Organization [facility] [place], Address [address] [place] [address] Phone Care Team Providers Care Pulp Mixer Name Role Phone Luly Newton MD Primary Care Provider [phone] Encounter Details Date Type Department Care Team (Late st Contact Info) Description 06/20/2024 Orders Only [facility] [address] [place] [address] Daniel Dumont DO [address] [facility] [place] [address] Hyponatremia; Hypertension Social History Tobacco [...] [facility] [address] [place] [address] Daniel Dumont DO [address] [facility] [address] [place] [address] documented as of this encounter Visit Diagnoses Diagnosis Hyponatremia Hypertension documented in this encounter Care Teams Pulp Mixer Relationship Specialty Start Date End Date Luly Newton MD [address] [place] [address] PCP - General Internal Medicine 02/13/23 documented as of this encounter
--- OUTSIDE RECORDS SUMMARY | 2025-04-03 12:43 | XMS_ITS | Encounter Summary ---
Author Organization [facility] [place], Address [address] [place] [address] Phone Care Team Providers Care Classification Case Manager Name Role Phone Luly [place] MD Primary Care Provider [phone] Encounter Details Date Type Department Care Team (Late st Contact Info) Description 01/25/2024 Orders Only [facility] [address] [place] [place] [address] Daniel Dumont DO [address] [place] [address] Hyponatremia Social History Tobacco Use [...] Visit [facility] [address] [place] [address] Daniel Dumont DO [address] [place] [address] documented as of this encounter Procedures Procedure Name Priority Date/Time Associated Diagnosis Comments RENAL FUNCTION PANEL Routine 11/19/2024 10:33 AM EDT documented in this encounter Results * (ABNORMAL) Renal Function Panel (11/19/2024 10:33 AM EDT) Glucose 89 70 - 99 mg/dL [facility] BUN 15 8 - 27 mg/dL [facility] Creatinine 0.79 0.76 - 1.27 mg/dL [facility] eGFR CKD-EPI CR 2020 93 >59 mL/min/1.7 3 [facility] BUN/Creatinine Ratio 19 10 - 24 [facility] Sodium 131(L) 134 - 144 mmol/L [facility] Potassium 3.7 3.5 - 5.2 mmol/L [facility] Chloride 90(L) 96 - 106 mmol/L [facility] Bicarbonate (CO2) 22 20 - 29 mmol/L [facility] Calcium 9.9 8.6 - 10.2 mg/dL [facility] Albumin 5.1(H) 3.8 - 4.8 g/dL [facility] Phosphorus 3.2 2.8 - 4.1 mg/dL [facility] 11/19/2024 10:3 3 AM EDT 11/19/2024 us Daniel Dumont DO LAB BLOOD ORDERABLES Final Resu lt [facility] [address] [place] [address] documented in this encounter Visit Diagnoses Diagnosis Hyponatremia documented in this encounter Care Teams Classification Case Manager Relationship Specialty Start Date End Date Luly Newton MD [address] [place] [address], [address] [place] [address] PCP - General Internal Medicine 02/13/23 documented as of this encounter
--- OUTSIDE RECORDS SUMMARY | 2025-04-03 12:43 | XMS_ITS | Clinical Summary ---
Author Organization [facility] Address [address] [facility] [address] [place] [address] Phone Care Team Providers Care Upset Operator Name Role Phone Shabana [place] MD Primary Care Provider [phone] Allergies Active Allergy Reactions Criticality Noted Date [...] [place]AC[place] Care Teams Upset Operator Relationship Specialty Start Date End Date Shabana Newton MD [address] [place] [address] PCP - General Internal Medicine 06/23/19 Additional Source Comments The information contained in this document represents components of the legal health record. It is not the complete legal health record.[facility]
--- OUTSIDE RECORDS SUMMARY | 2025-04-03 12:43 | XMS_ITS | Encounter Summary ---
Author Organization [facility] [place], Address [address] [place] [address] Phone Care Team Providers Care Bookkeeping Machine Operator Name Role Phone Luly [place] MD Primary Care Provider [phone] Encounter Details Date Type Department Care Team (Late st Contact Info) Description 11/02/2023 Orders Only [facility] [address] [place] [address] Daniel Dumont DO [address] [place] [address] Hyponatremia Social History Tobacco Use [...] Visit [facility] [address] [place] [address] Daniel Dumont DO [address] [place] [address] documented as of this encounter Visit Diagnoses Diagnosis Hyponatremia documented in this encounter Care Teams Bookkeeping Machine Operator Relationship Specialty Start Date End Date Luly Newton MD [address] [place] [address] [address] [place] [address] PCP - General Internal Medicine 02/13/23 documented as of this encounter
--- OUTSIDE RECORDS SUMMARY | 2025-04-03 12:43 | XMS_ITS | Clinical Summary ---
Author Organization [facility] [place], Address [address] [place] [address] [place] [address] Phone Care Team Providers Care Unindentured Apprentice Name Role Phone Luly [place] MD Primary Care Provider [phone] Allergies Active Allergy Reactions Criticality Noted Date [...] Only [facility] [address] [place] [address] Daniel Dumont DO Hyponatremia; Hypertension 02/26/2025 Refill [facility] [address] [place] [address] Daniel Dumont DO 01/09/2025 Orders Only [facility] [address] [place] [address] Daniel Dumont DO Hyponatremia; Hypertension 01/07/2025 Refill [facility] [address] [place] [address] Daniel Dumont, from Last 3 Months [...] Visit [facility] [place], [address] [place] [address] Daniel Dumont, DO [address] [place] [address] Health Maintenance Due Date Last Done Comments Pneumococcal Vaccine: 50+ Ye ars (2 of 2 - PCV) 05/18/2018 05/18/2017 Influenza Vaccine (#1) 2025 Hepatitis B Vaccine Aged Out No longe r eligible based on patient's age to complete this topic Insurance [facility] Care Teams Unindentured Apprentice Relationship Specialty Start Date End Date Luly Newton MD [address] [place] [address], [facility] [address] [place] [address] PCP - General Internal Medicine 02/13/23
--- OUTSIDE RECORDS SUMMARY | 2025-04-03 12:43 | XMS_ITS | Data Portability ---
Author Organization [facility], [facility] Address [address] [place] [address] Care Team Providers Care Irish Moss Bleacher Name Role Phone MELQUIADES JIMÉNEZ Primary Care Provider [phone] Assessment No assessment recorded. 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 Procedures Surgical History Date Name Laterality Status Provider Name and Address Organization Details Recorded Time 04/03/2024 Sports Knee 4&1 cancelled Weston Oakes PA-C [address], [place], [address], [facility] 04/03/2024 07:33:56 01/03/2024 Sports Knee 4&1 completed Weston Oakes PA-C [address], [place], [address], [facility] 01/03/2024 07:33:11 10/01/2023 Sports Knee 4&1 completed Weston Oakes PA-C [address], [place], [address], [facility] 10/01/2023 07:39:31 Imaging Results None recorded. Procedure Notes None recorded. Medical Equipment None Reported. Allergies Allergen ID Allergen Name Allergen Category Reaction Reaction Severity Criticality Documentation Date Start Date Code Code System Note Provider Name and Address Organization Details Recorded Time 95498 Product containin g penicilli n (product) medicatio n swelling Not available Not available 08/13/20232017 74616 8001 SNOMED Not Available [facility] 11:39:11 Medications Name Sig Start Date Stop [...] Updated DateTime 10/01/2023 172.72 cm 25.8 kg/m2 89125.7 g PRIMO MIRZA [facility] 10/01/2023 09:49:15 Date Recorded Body height Body mass index (BMI) Body weight Provider Name and Address Organization Details Last Updated DateTime 01/03/2024 172.72 cm 25.8 kg/m2 57711.7 g ARASELI WHITNEY [facility] 01/03/2024 08:44:06 Social History None recorded. Functional Status None recorded. Mental Status None recorded. Family History Nothing Reported. Medical History No medical history recorded. Past Encounters Encounter ID Performer Location Encounter Start Date Encounter Closed Date Diagnosis/Indication Diagnosis SNOMED-CT Code Diagnosis ICD10 Code Diagnosis IMO Codes Diagnosis Note [id number] SERAFIN Momin [address] [place] [address] 10/01/2023 09:39:57 10/22/2023 06:46:39 Osteoarthritis of left knee joint [id number] 65645 M17.12 [id number] Weston Oakes PA-C [address] [place] [address] 01/03/2024 08:31:57 01/23/2024 15:15:04 Osteoarthritis of left knee joint [id number] 68207 M17.12 Health Concerns Section Related Observation LastModified by Organization Detai ls LastModified Time None Recorded Concern Status LastModified by Organization Details LastModified Time None Recorded Advance Directives Directive None Recorded Payers Insurance Date Sequence Insurance Name Policy Number Policy Hillman Covered Member ID Hillman Member ID Guarantor Name 04/02/2024 1 [facility]: [place]IC[place] PPO BLUE (MEDICARE REPLACEMENT PPO) [id number] Luis Angel Scott [id number] Luis Angel Scott Notes Date Note [...] continued conservative treatment. Weston Oakes PA-C [email or web address], [place], [address], [facility] 10/01/2023 16:44:48 01/03/2024 text/html [...] continued conservative treatment. Weston Oakes PA-C [email or web address], [place], [address], [facility] 01/04/2024 07:25:10
--- OUTSIDE RECORDS SUMMARY | 2025-04-03 12:43 | XMS_ITS | Encounter Summary ---
Author Organization [facility] [place], Address [address] [place] [address] Phone Care Team Providers Care Reading Assistant Name Role Phone Luly Newton MD Primary Care Provider [phone] Encounter Details Date Type Department Care Team (Late st Contact Info) Description 03/28/2024 Orders Only [facility] [address] [place] [address] Daniel Dumont DO [address] [facility] [place] [address] Hyponatremia; Hypertension Social History Tobacco [...] Visit [facility] [address] [place] [address] Daniel Dumont DO [address] [place] [address] documented as of this encounter Visit Diagnoses Diagnosis Hyponatremia Hypertension documented in this encounter Care Teams Reading Assistant Relationship Specialty Start Date End Date Luly Newton MD [address] [place] [address] PCP - General Internal Medicine 02/13/23 documented as of this encounter
--- OUTSIDE RECORDS SUMMARY | 2025-04-03 12:43 | XMS_ITS | Encounter Summary ---
Author Organization [facility] Address [address] [place] [address] Phone Care Team Providers Care Extrusion Die Corrector Name Role Phone Luly Newton MD Primary Care Provider [phone] Encounter Details Date Type Department Care Team (Late st Contact Info) Description 02/28/2024 Documentation Only [facility] [address] [place] [address] [place], [place] [address] [place] [address] Social History Tobacco Use Types [...] Visit [facility] [address] [place] [address] [address] [facility] [address] [facility] [place] [address] documented as of this encounter Visit Diagnoses Not on filedocumented in this encounter Care Teams Extrusion Die Corrector Relationship Specialty Start Date End Date Luly Newton MD [address] [place] [address] [address] [place] [address] PCP - General Internal Medicine 02/13/23 documented as of this encounter
--- OUTSIDE RECORDS SUMMARY | 2025-04-03 12:43 | XMS_ITS | Encounter Summary ---
Author Organization [facility] [place], Address [address] [place] [address] Phone Care Team Providers Care Engineering Teacher Name Role Phone Luly Newton MD Primary Care Provider [phone] Encounter Details Date Type Department Care Team (Late st Contact Info) Description 12/28/2023 Orders Only [facility] [address] [place] [address] Daniel Dumont DO [address] [place] [address] Hyponatremia Social History Tobacco Use [...] Visit [facility] [address] [place] [address] Daniel Dumont DO [address] [place] [address] documented as of this encounter Visit Diagnoses Diagnosis Hyponatremia documented in this encounter Care Teams Engineering Teacher Relationship Specialty Start Date End Date Luly Newton MD [address] [place] [address] [address] [place] [address] PCP - General Internal Medicine 02/13/23 documented as of this encounter
--- OUTSIDE RECORDS SUMMARY | 2025-04-03 12:43 | XMS_ITS | Encounter Summary ---
Author Organization [facility] [place], Address [address] [place] [address] Phone Care Team Providers Care Director Customer Name Role Phone Luly Newton MD Primary Care Provider [phone] Encounter Details Date Type Department Care Team (Late st Contact Info) Description 01/04/2024 Orders Only [facility] [address] [place] [address] Daniel Dumont DO [address] [place] [address] Hyponatremia; Hypertension Social History Tobacco [...] Visit [facility] [address] [place] [address] Daniel Dumont DO [address] [place] [address] documented as of this encounter Visit Diagnoses Diagnosis Hyponatremia Hypertension documented in this encounter Care Teams Director Customer Relationship Specialty Start Date End Date Luly Newton MD [address] [place] [address] PCP - General Internal Medicine 02/13/23 documented as of this encounter
--- OUTSIDE RECORDS SUMMARY | 2025-04-03 12:44 | XMS_ITS | Encounter Summary ---
Author Organization [facility] [place], Address [address] [place] [address] Phone Care Team Providers Care Oil Rag Washer Name Role Phone Luly [place] MD Primary Care Provider [phone] Encounter Details Date Type Department Care Team (Late st Contact Info) Description 02/14/2023 Documentation Only [facility] [address] [place] [address] Luly Newton MD [address] [place] [address] Social History Tobacco Use Types Packs/Day Years [...] [facility] [address] [place] [address] Daniel Dumont [address] [place] [address] documented as of this encounter Visit Diagnoses Not on filedocumented in this encounter Care Teams Oil Rag Washer Relationship Specialty Start Date End Date Luly Newton MD [address] [place] [address] PCP - General Internal Medicine 02/13/23 documented as of this encounter
--- OUTSIDE RECORDS SUMMARY | 2025-04-03 12:44 | XMS_ITS | Encounter Summary ---
Author Organization [facility] [place], Address [address] [place] [address] Phone Care Team Providers Care Coal Hauler Operator Name Role Phone Luly Newton MD Primary Care Provider [phone] Encounter Details Date Type Department Care Team (Late st Contact Info) Description 02/13/2023 Documentation Only [facility] [address] [place] [address] Daniel Dumont DO [address] [facility] [place] [address] Social History Tobacco Use Types [...] [facility] [address] [place] [address] Daniel Dumont DO [address] [facility] [address] [place] [address] documented as of this encounter Visit Diagnoses Not on filedocumented in this encounter Care Teams Coal Hauler Operator Relationship Specialty Start Date End Date Luly Newton MD [address] [place] [address] [address] [place] [address] PCP - General Internal Medicine 02/13/23 documented as of this encounter
--- OUTSIDE RECORDS SUMMARY | 2025-04-03 12:44 | XMS_ITS | Encounter Summary ---
Author Organization [facility] [place], Address [address] [place] [address] Phone Care Team Providers Care Spanish Interpreter Name Role Phone Luly Newton MD Primary Care Provider [phone] Encounter Details Date Type Department Care Team (Late st Contact Info) Description 04/04/2023 Documentation Only [facility] [address] [facility] [place] [address] Daniel Dumont DO [address] [facility] [place] [address] Social History Tobacco Use Types [...] Visit [facility] [address] [place] [address] Daniel Dumont DO [address] [facility] [place] [address] documented as of this encounter Visit Diagnoses Not on filedocumented in this encounter Care Teams Spanish Interpreter Relationship Specialty Start Date End Date Luly Newton MD [address] [place] [address] [address] [place] [address] PCP - General Internal Medicine 02/13/23 documented as of this encounter
--- OUTSIDE RECORDS SUMMARY | 2025-04-03 12:44 | XMS_ITS | Encounter Summary ---
Author Organization [facility] [place], Address [address] [place] [address] Phone Care Team Providers Care Skating Rink Ice Maker Name Role Phone Luly Newton MD Primary Care Provider [phone] Encounter Details Date Type Department Care Team (Late st Contact Info) Description 01/27/2023 Documentation Only [facility] [address] [place] [address] Daniel Dumont DO [address] [facility] [place] [address] Social History Tobacco Use Types [...] Visit [facility] [address] [place] [address] Daniel Dumont DO [address] [facility] [place] [address] documented as of this encounter Visit Diagnoses Not on filedocumented in this encounter Care Teams Skating Rink Ice Maker Relationship Specialty Start Date End Date Luly Newton MD [address] [place] [address] 104 [place] [address] PCP - General Internal Medicine 02/13/23 documented as of this encounter
--- OUTSIDE RECORDS SUMMARY | 2025-04-03 12:44 | XMS_ITS | Encounter Summary ---
Author Organization [facility] Address [address] [facility] [address] [place] [address] Phone Care Team Providers Care Educational Assistant Name Role Phone Shabana Newton MD Primary Care Provider [phone] Encounter Details Date Type Department Care Team (Late st Contact Info) Description 06/23/2019 Procedure Pass [facility] Endoscopy Admitting Dept Virtual Department [address] [place] [address] Social History Tobacco Use Types Packs/Day Years [...] on filedocumented in this encounter Care Teams Educational Assistant Relationship Specialty Start Date End Date Shabana Newton MD [address] [place] [address] 104 [place] [address] PCP - General Internal Medicine 06/23/19 documented as of this encounter Additional Source Comments The information contained in this document represents components of the legal health record. It is not the complete legal health record.[facility]
--- OUTSIDE RECORDS SUMMARY | 2025-04-03 12:44 | XMS_ITS | Encounter Summary ---
Author Organization [facility] [place], Address [address] [place] [address] Phone Care Team Providers Care Director Internal Audit Name Role Phone Luly [place] MD Primary Care Provider [phone] Encounter Details Date Type Department Care Team (Late st Contact Info) Description 02/13/2023 Documentation Only [facility] [address] [place] [address] Daniel Dumont DO [address] [facility] [place] [address] Social History Tobacco Use Types [...] Visit [facility] [address] [place] [address] Daniel Dumont DO [address] [facility] [place] [address] documented as of this encounter Visit Diagnoses Not on filedocumented in this encounter Care Teams Director Internal Audit Relationship Specialty Start Date End Date Luly Newton MD [address] [place] [address] 104 [place] [address] PCP - General Internal Medicine 02/13/23 documented as of this encounter
--- OUTSIDE RECORDS SUMMARY | 2025-04-03 12:44 | XMS_ITS | Encounter Summary ---
Author Organization [facility] Address [address] [facility] [address] [place] [address] Phone Care Team Providers Care Counseling Center Manager Name Role Phone Shabana [place] MD Primary Care Provider [phone] Encounter Details Date Type Department Care Team (Late st Contact Info) Description 07/23/2019 Procedure Pass [facility] Endoscopy Admitting Dept Virtual Department [address] [place] [address] Social History Tobacco Use Types Packs/Day Years [...] on filedocumented in this encounter Care Teams Counseling Center Manager Relationship Specialty Start Date End Date Shabana Newton MD [address] [place] [address] 104 [place] [address] PCP - General Internal Medicine 06/23/19 documented as of this encounter Additional Source Comments The information contained in this document represents components of the legal health record. It is not the complete legal health record.[facility]
--- OUTSIDE RECORDS SUMMARY | 2025-04-03 12:44 | XMS_ITS | Encounter Summary ---
Author Organization [facility], Address [address] [place] [address] Phone Care Team Providers Care Shanker Out Name Role Phone Luly Newton MD Primary Care Provider [phone] Encounter Details Date Type Department Care Team (Late st Contact Info) Description 02/09/2023 Documentation Only [facility] [address] [place] [address] Daniel Dumont DO [address] [facility] [place] [address] Social History Tobacco Use Types [...] Visit [facility] [address] [place] [address] Daniel Dumont DO [address] [facility] [place] [address] documented as of this encounter Visit Diagnoses Not on filedocumented in this encounter Care Teams Shanker Out Relationship Specialty Start Date End Date Luly Newton MD [address] [place] [address] [address] [place] [address] PCP - General Internal Medicine 02/13/23 documented as of this encounter
== END ==
LOC: HO.CARD 10:53
PROVIDERS: PCP Internal Medicine; Visit Provider Internal Medicine
DX: I48.0 Paroxysmal atrial fibrillation (principal); I63.9 Cerebral infarction, unspecified
CPT/HCPCS: 93270

== ENCOUNTER → 2025-04-03 10:56 | Outpatient (BNV) | payer MEDICARE, SELFPAY | PROVIDERS: PCP Internal Medicine; Visit Provider Internal Medicine | DX: I49.3 Ventricular premature depolarization (principal); I49.49 Other premature depolarization | CPT/HCPCS: 93272 ==

== ENCOUNTER 2025-04-20 06:08 | Inpatient (IN) | payer MEDICARE, SELFPAY ==
--- OUTSIDE RECORDS SUMMARY | 2024-11-19 03:38 | XMS_ITS | Continuity of Care Document ---
Author Name [facility] Organization [facility] Care Team Providers Care Pit Hand Name Role Phone [facility] Unavailable Unavailable Problems Combined list of problems [...] 2) patient-reported medications. Medication Details Route Status Indication(s) Patie nt Instructions Prescription Expires Prescription Number Last Dispense Date Ordering Provider Order Date Order Qty Source AMLODIPINE BESYLATE 10MG TAB TAKE ONE TABLET BY MOUTH DAILY ORAL ACTIVE CUTLER,W[place] LLIAM S 2015 [facility] BISOPROLOL FUMARATE 5MG TAB TAKE ONE TABLET BY MOUTH DAILY ORAL ACTIVE CUTLER,WI LLIAM S 2015 [facility] LORAZEPAM 2MG TAB TAKE ONE TABLET BY MOUTH ONE TIME FOR ANXIETY TAKE ONE HOUR PRIOR TO MRI AND DIRECTED . DO NOT DRIVE FOR 12 HOURS AFTER TAKING ORAL 01/04/2024 [id number] KISHA CLEVELAND 2023 2 [facility] SIMVASTATIN 20MG TAB TAKE ONE-HALF TABLET BY MOUTH DAILY ORAL ACTIVE DONATO MARTINEZ S 2015 [facility] Immunizations Combined list of available immunizations from the Department of Defense and Veterans Affairs facilities. Immunization Series Date Given Administered By Site Reaction Lot Number CVX Code Drug Sausage Mixer Status Comments Source COVID-19 (Trending Taste), MRNA, LNP-S, PF, 30 MCG/0.3 ML DOSE 2 2020 208 complet ed PFR; [id number]; 1 [facility] COVID-19 (Trending Taste), MRNA, LNP-S, PF, 30 MCG/0.3 ML DOSE 1 2020 208 complet ed PFR; [id number]; 1 [facility] DTAP, UNSPECIFIED FORMULATION 2011 107 complet ed uncertain date at [facility] PCP [facility] Results Combined list of recent chemistry, [...] Dec 05, 2023 09:34 AM Reporting Lab: [facility] [address] [id number] Performing Lab: [address] [address] [facility] CREATININ E (eGFR 2020) GLOMERULAR FILTRATION RATE/1.73 SQ M.PREDICTED [VOLUME RATE/AREA] IN SERUM, PLASMA OR BLOOD BY CREATININE- BASED FORMULA (CKD-EPI 2020) >90mL/ min 60 12/04 Specimen Type: SERUM No comment entered. Ordering Provider: ANN CLEVELAND Report Released Date/Time: Dec 05, 2023 09:34 AM Reporting Lab: [facility] [address] [id number] Performing Lab: [facility] [address] [id number] [facility] Vital Signs Combined list of inpatient [...] 08:08:28 [facility] BMI 25 kg/m2 12/25/2023 08:08:28 [facility] PAIN 0 12/25/2023 08:08:28 [facility] TEMPERATURE 97.2 12/25/2023 08:08:28 [facility] PULSE 101 12/25/2023 08:08:28 [facility] RESPIRATION 18 12/25/2023 08:08:28 [facility] SYSTOLIC BLOOD PRESSURE 158 12/05/19 24 09:10:04 [facility] DIASTOLIC BLOOD PRESSURE 83 024 09:10:04 [facility] PULSE OXIMETRY 94 12/05/2023 09:10:04 [facility] WEIGHT 166.4 12/05/2023 09:10:04 [facility] BMI 25 kg/m2 12/05/2023 09:10:04 [facility] PAIN 0 12/05/2023 09:10:04 [facility] TEMPERATURE 98 12/05/2023 09:10:04 [facility] PULSE 104 12/05/2023 09:10:04 [facility] RESPIRATION 18 12/05/2023 09:10:04 [facility] Encounters Combined list of: 1) Encounters from Department of Veterans Affairs facilities going backup to the last 18 months, not all VA inpatient encounters are included; 2) Encounters from the Department of Defense facilities going backup to 280 months. Location Location Details Encounter Type Encounter Number Reason For Visit Attending Provider ADM Date DC Date Status Disposition Source [facility] [place] [id number] Diagnos is: ICD-10- CM H90.3 Sensori neural hearing loss, bilater RICO Camacho 10/29 [facility] REMOVE IMPACTED EAR WAX [place]I [id number] Diagnos is: ICD-10- CM H90.A21 Snsrnrl hear loss, uni, r ear, with rstrcd hear cntra side WINDY CLEVELAND R 12/04 [facility] OFFICE O/P EST SF 10 MIN [id number] Diagnos is: ICD-10- CM H61.21 Impacte d cerumen , right ear WINDY CLEVELAND R 12/24 [facility] Outpatient Encounter [id number] 1.12/31 [facility] HEARING AID EXAM BOTH EARS [id number] Diagnos is: ICD-10- CM H90.3 Sensori neural hearing loss, bilater al CLIVEBLADIMIR L 02/13 [facility] CONFORMITY EVALUATION [id number] Diagnos is: ICD-10- CM Z46.1 Encount er for fitting and adjustm ent of hearing aid Sheree HAQUE 03/13 [facility] HEARING AID CHECK BOTH EARS [id number] Diagnos is: ICD-10- CM Z46.1 Encount er for fitting and adjustm ent of hearing aid BLADIMIR DUFFY L 03/19 [facility] EAR IMPRESSION [id number] 1. Diagnos is: ICD-10- CM Z46.1 Encount er for fitting and adjustm ent of hearing aid MICHA CANCINO L 04/09 [facility] OFF/OP EST MAY X REQ PHY/QHP [id number] Diagnos is: ICD-10- CM Z71.89 Other specifi ed counselor aide Yoshi Arredondo [facility] HEARING AID REPAIR/MOD IFYING [id number] Diagnos is: ICD-10- CM Z46.1 Encount er for fitting and adjustm ent of hearing aid SENIOR,ERIK ARGUETA L 04/17 [facility] Social History Combined list of available smoking, tobacco, and other social history from Department of Defense and Veterans Affairs facilities. Social History Type Response Date Comment Source Tobacco smoking status NHIS QUIT TOBACCO USE > 7 YEARS AGO 04/18/2017 [facility] History of tobacco use QUIT TOBACCO USE > 7 YEARS AGO 04/18/2016 quit 35 yrs ago [facility]
[2025-04-08 10:37] VITALS: BP 155/79; PULSE 79; RESP 16; O2SAT 96; BMI 25.1
--- NOTE | 2025-04-08 10:59 | HO.ANESPROP2 ---
Documented by User: Gloria Floyd NP 04/10/25 09:39 HPI - Anesthesia Eval Consult details Narrative: 75yo M for Right Carotid Endarterectomy, 04/20/25 CVA 02/2025 - right side vision loss slowly returning s/p L4-5 Midline Sparing Decompression, 08/30/23 No recent illness No CP with yard work. Mild LEZAMA Preop cardiac eval with [facility]. Echo and stress ok. Optimized to proceed. 30 day holter ongoing SIAD/Hyponatremia. Follow[facility] for [facility]. Last office visit 11/2024. A&P: 1.5L fluid restriction, BID salt tabs, lasix d/c'd. Notes that hyponatremia likely exacerbated by spine osteo requiring abx (resolved) and low caloric intake (improved eating per patient report). Daily ETOH: at least 6 beers daily. Will decrease by 1 beere Q2 days until down to 1-2 beers daily GERD. ppi controls Chronic opioids. Oxy 5mg 1-2 x daily prn TAA: 4.6cm. follows [facility] cardiac surgery, stable at 08/2024 office visit with yearly surveillence rec'd Case reviewed with [facility] Active Problems Active Problems: All Active Problems Carotid stenosis (Acute) Multiple cerebral infarctions (Acute) Cerebral infarction (Acute) Cardiomyopathy (Acute) Ascending aortic aneurysm (Acute) Patent foramen ovale (Acute) Stenosis of right internal carotid artery (Acute) Hyponatremia (Acute) Central retinal artery occlusion of right eye (Acute) Acute stroke of basal ganglia (Acute) Sudden visual loss of right eye (Acute) Mononeuropathy (Acute) Intractable back pain (Acute) Lumbar spondylosis (Acute) Intractable low back pain (Acute) S/P spinal surgery (Acute) Spinal stenosis (Acute) Lumbago (Acute) Eczematous dermatitis (Acute) Shoulder subluxation, right (Acute) Dislocation of shoulder, right, closed (Acute) Shoulder pain (Acute) Past Medical History Medical History CVA (cerebral vascular accident) Dyspnea on exertion Osteoarthritis Erectile dysfunction Hypercholesteremia Diskitis Tubular adenoma SIAD (syndrome of inappropriate antidiuresis) Thoracic aortic aneurysm Constipation CAD (coronary artery disease) History of rib fracture Hard of hearing History of MRSA infection Back pain GERD (gastroesophageal reflux disease) Weakness Habitual snoring High cholesterol Hypertension Family History Family History Mother Heart failure Heart attack Father Acute anxiety Depression Family history of problems with anesthesia: No Surgical History Surgical History History of back surgery History of esophagogastroduodenoscopy (EGD) Hx of tonsillectomy History of total right knee replacement (~2018) Hx of cataract extraction H/O colonoscopy Knee joint replacement status History of Problems with Anesthesia: No Social History Social History Household Members: Spouse Housing: House Are you a primary resident care manager to a significant other at home: No Do you presently have visiting nurse or other home services: No Alcohol intake: current Alcohol intake frequency: 3 or more drinks per day Alcohol type: beer Patient Tobacco Use Status: Former Tobacco user Use of substances other than those prescribed or required for medical reasons: No Have you been hit, kicked, punched, or otherwise hurt by someone within the past year? 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 Meds Allergies Allergy/AdvReac Type Severity Reaction Status Date / Time daptomycin Allergy Unknown Verified 04/20/25 06:47 lisinopril Allergy Nausea Verified 04/20/25 06:47 Penicillins AdvReac swollen Verified 04/20/25 06:47 Home Medications ?Medication ?Instructions ?Recorded ?Confirmed ?Last Taken ?Type omeprazole 20 mg capsule,delayed 20 mg PO DAILY 06/03/22 04/08/25 04/20/25 History release amlodipine 10 mg tablet 10 mg PO DAILY 08/16/23 04/08/25 04/20/25 History tamsulosin 0.4 mg capsule 0.4 mg PO DAILY 08/16/23 04/08/25 02/23/25 History sodium chloride 1,000 mg soluble 1,000 mg PO BID 03/18/25 04/08/25 Unknown History tablet ascorbic acid (vitamin C) 500 mg 500 mg PO DAILY 04/08/25 04/08/25 Unknown History tablet (Vitamin C) atorvastatin 40 mg tablet 40 mg PO BID 04/08/25 04/08/25 04/20/25 History multivitamin 1 tab PO DAILY 04/08/25 04/08/25 Unknown History valsartan 40 mg tablet 40 mg PO DAILY 04/08/25 04/08/25 Unknown History Exam Height,Weight and Vital Signs: Height 5 ft 9 in Weight 77.111 kg Last Vital Signs Pulse 79 04/08/25 10:37 Resp 16 04/08/25 10:37 BP 155/79 H 04/08/25 10:37 Pulse Ox 96 04/08/25 10:37 O2 Del Method Room Air 04/08/25 10:37 Pertinent Lab Results Pertinent Lab Results: Lab Results 04/08/25 Range/Units 11:08 WBC 5.6 (4.8-10.8) X10*3/uL RBC 4.73 (4.60-5.80) X10*6/uL Hgb 14.2 (14.0-18.0) g/dl Hct 40.2 L (42.0-52.0) % MCV 85.0 (80.0-98.0) fL MCH 30.0 (27.0-33.0) pg MCHC 35.3 (31.0-36.0) g/dl RDW 12.5 (11.0-16.0) % Plt Count 230 (160-400) X10*3/uL MPV 9.4 (9.4-12.4) fL Absolute Nucleated RBC 0.000 (0.0-0.012) X10*3/uL Nucleated RBC % (auto) 0.0 (0.0-0.2) /100WBC PT 10.3 L (10.9-12.4) SEC INR 0.9 (0.9-1.1) APTT 30.0 (26.7-34.1) SEC Sodium 130 L (135-145) mmol/L Potassium 3.9 (3.3-5.1) mmol/L Chloride 94 L (96-108) mmol/L Carbon Dioxide 27 (22-29) mmol/L Anion Gap 13 (12-20) BUN 12 (9-16) mg/dL Creatinine 0.65 (0.5-1.4) mg/dL Estim Creat Clear Calc 96.6 Estimated GFR > 60 Random Glucose 96 (60-115) mg/dL Calcium 9.3 (8.4-10.2) mg/dL Total Bilirubin 1.0 (0.0-1.0) mg/dL AST 34 (5-37) U/L ALT 25 (0-40) U/L Alkaline Phosphatase 84 (39-117) U/L Total Protein 7.4 (6.5-8.0) g/dL Albumin 4.8 (3.5-5.0) g/dL Narrative Narrative: EKG 02/2025 Vent. Rate : 96 BPM Atrial Rate : 96 BPM P-R Int : 164 ms QRS Dur : 80 ms QT Int : 354 ms P-R-T Axes : 26 -33 23 degrees QTcB Int : 447 ms Normal sinus rhythm Left axis deviation Moderate voltage criteria for LVH, may be normal variant ( R in aVL , Raulito product ) Abnormal ECG When compared with ECG of 25-Feb-2025 10:25, No significant change was found ECHO 02/2025 Conclusions: - The left ventricular systolic function is mildly decreased. The calculated ejection fraction is 48% by biplane method. - Contrast study for right to left shunting is mildly positive. - No obvious valvular pathology seen on this study. - There is moderate dilatation of the sinuses of Valsalva measuring 4.60 cm and moderate dilatation of the ascending aorta measuring 4.50 cm. NM cardiolite stress test 03/2025 IMPRESSION: 1. Myocardial perfusion imaging study shows likely normal myocardial perfusion. 2. Gated LVEF is 52%. 3. Transient ischemic dilatation not present but LV cavity is dilated. EKG revealed negative for ischemia. CT angio head neck STROKE 02/2025 IMPRESSION: No gross main cerebral artery occlusion or embolus or gross cerebral aneurysm. origin, right ONE PIECE EXPANSION MAKER HAND. Atherosclerosis disease, intracranial and extracranial. Poor visualization of the right P3 segment. 60% stenosis right ICA. No dissection. Multiple low density/cystic thyroid nodules. Airway Mallampati Class: III TM Dist: >3cm Neck ROM: Limited Loose/Missing/Broken Teeth: No (#5 implant, all other stable per patient) Heart: RRR Lungs: CTAB Assessment and Plan Assessment Anesthesia Assessment: Anesthesia Plan Discussed and PAT Visit Final Anesthetic Review Family History of Problems with Anesthesia: No History of Problems with Anesthesia: No Documented by User: Burt Meehan MD 04/20/25 07:19 [facility] Past Medical History Medical History CVA (cerebral vascular accident) Dyspnea on exertion Osteoarthritis Erectile dysfunction Hypercholesteremia Diskitis Tubular adenoma SIAD (syndrome of inappropriate antidiuresis) Thoracic aortic aneurysm Constipation CAD (coronary artery disease) History of rib fracture Hard of hearing History of MRSA infection Back pain GERD (gastroesophageal reflux disease) Weakness Habitual snoring High cholesterol Hypertension Family History Family History Mother Heart failure Heart attack Father Acute anxiety Depression Surgical History Surgical History History of back surgery History of esophagogastroduodenoscopy (EGD) Hx of tonsillectomy History of total right knee replacement (~2018) Hx of cataract extraction H/O colonoscopy Knee joint replacement status Social History Social History Household Members: Spouse Housing: House Are you a primary resident care manager to a significant other at home: No Do you presently have visiting nurse or other home services: No Alcohol intake: current Alcohol intake frequency: 3 or more drinks per day Alcohol type: beer Patient Tobacco Use Status: Former Tobacco user Use of substances other than those prescribed or required for medical reasons: No Have you been hit, kicked, punched, or otherwise hurt by someone within the past year? 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 Meds Allergies Allergy/AdvReac Type Severity Reaction Status Date / Time daptomycin Allergy Unknown Verified 04/20/25 06:47 lisinopril Allergy Nausea Verified 04/20/25 06:47 Penicillins AdvReac swollen Verified 04/20/25 06:47 Home Medications ?Medication ?Instructions ?Recorded ?Confirmed ?Last Taken ?Type omeprazole 20 mg capsule,delayed 20 mg PO DAILY 06/03/22 04/08/25 04/20/25 History release amlodipine 10 mg tablet 10 mg PO DAILY 08/16/23 04/08/25 04/20/25 History tamsulosin 0.4 mg capsule 0.4 mg PO DAILY 08/16/23 04/08/25 02/23/25 History sodium chloride 1,000 mg soluble 1,000 mg PO BID 03/18/25 04/08/25 Unknown History tablet ascorbic acid (vitamin C) 500 mg 500 mg PO DAILY 04/08/25 04/08/25 Unknown History tablet (Vitamin C) atorvastatin 40 mg tablet 40 mg PO BID 04/08/25 04/08/25 04/20/25 History multivitamin 1 tab PO DAILY 04/08/25 04/08/25 Unknown History valsartan 40 mg tablet 40 mg PO DAILY 04/08/25 04/08/25 Unknown History Exam Exam Date and Time: 04/20/26 Airway Mallampati Class: II Assessment and Plan Final Anesthetic Review NPO: Yes ASA Class: III Final Preanesthetic Review: No Changes in Pt Med Stat, Meds/Allgs Chart Reviewed, Consent Obtained/Reviewed and Anes Risks/Benef Reviewed Patient Risk: Intermediate Procedure Risk: Intermediate Anesthetic Plan Anesthetic Plan: GA Disposition: Standard PACU
[2025-04-08 11:48] LABS: Hematocrit 40.2 % (42.0-52.0); Hemoglobin 14.2 g/dl (14.0-18.0); Mean Corpuscular HGB Conc 35.3 g/dl (31.0-36.0); Mean Corpuscular Hemoglobin 30.0 pg (27.0-33.0); Mean Corpuscular Volume 85.0 fL (80.0-98.0); NRBC Abs Auto 0.000 X10*3/uL (0.0-0.012); NRBC Pct Auto 0.0 /100WBC (0.0-0.2); Platelet Count 230 X10*3/uL (160-400); Red Blood Count 4.73 X10*6/uL (4.60-5.80); White Blood Count 5.6 X10*3/uL (4.8-10.8)
[2025-04-08 11:56] LABS: INTERNATIONAL NORM RATIO 0.9 (0.9-1.1); Prothrombin Time 10.3 SEC (10.9-12.4)
[2025-04-08 11:59] LABS: Partial Thromboplastin Time 30.0 SEC (26.7-34.1)
[2025-04-08 12:17] LABS: Alanine Aminotransferase 25 U/L (0-40); Albumin Level 4.8 g/dL (3.5-5.0); Alkaline Phosphatase 84 U/L (39-117); Anion Gap 13 (12-20); Aspartate Amino Transferase 34 U/L (5-37); Blood Urea Nitrogen 12 mg/dL (9-16); Calcium 9.3 mg/dL (8.4-10.2); Carbon Dioxide 27 mmol/L (22-29); Chloride 94 mmol/L (96-108); Creatinine Clr Calc Pharmacy 96.6; Estimated Glomerular Filt Rate > 60; Potassium 3.9 mmol/L (3.3-5.1); Sodium 130 mmol/L (135-145); Total Protein 7.4 g/dL (6.5-8.0)
[2025-04-20] VITALS (21 sets, daily range): BP systolic 95–149; BP diastolic 47–81; PULSE 76–96; RESP 11–18; TEMP 36.2–37.2; O2SAT 90–100; BMI 26.1; BMI 26.5
--- OUTSIDE RECORDS SUMMARY | 2025-04-20 06:20 | XMS_ITS | Encounter Summary ---
Author Organization [facility], Address [address] [place] [address] Phone Care Team Providers Care Senior J2Ee Developer Name Role Phone Luly Newton MD Primary Care Provider [phone] Encounter Details Date Type Department Care Team (Late st Contact Info) Description 06/01/2023 Documentation Only [facility] [address] [place] [address] Daniel Dumont DO [address] [place] [address] Social History Tobacco Use Types [...] Visit [facility] [address] [place] [address] Daniel Dumont DO [address] [place] [address] documented as of this encounter Visit Diagnoses Not on filedocumented in this encounter Care Teams Senior J2Ee Developer Relationship Specialty Start Date End Date Luly Newton MD [address] [place] [address] [address] [place] [address] PCP - General Internal Medicine 02/13/23 documented as of this encounter
--- OUTSIDE RECORDS SUMMARY | 2025-04-20 06:20 | XMS_ITS | Encounter Summary ---
Author Organization [facility] Address [address] [place] [address] Phone Care Team Providers Care Regulatory Technician Name Role Phone Luly Newton MD Primary Care Provider [phone] Encounter Details Date Type Department Care Team (Late st Contact Info) Description 08/10/2023 Orders Only [facility] [address] [place] [address] Daniel Dumont DO [address] [facility] [place] [address] Hyponatremia Social History Tobacco Use [...] [facility] [address] [place] [address] Daniel Dumont DO [address] [facility] [place] [address] Scheduled Orders Name Type Priority [...] 11:07 AM EDT Performed at: 01 - [address] [id number] Variety Performer: La Haile MD, Phone: [phone] us Daniel Dumont DO LAB [id number] LICITED RESULTS Final Result [facility] documented in this encounter Visit Diagnoses Diagnosis Hyponatremia documented in this encounter Care Teams Regulatory Technician Relationship Specialty Start Date End Date Luly Newton MD [address] [place] [address] [address] [place] [id number] PCP - General Internal Medicine 02/13/23 documented as of this encounter
--- OUTSIDE RECORDS SUMMARY | 2025-04-20 06:20 | XMS_ITS | Encounter Summary ---
Author Organization [facility], Address [address] [place] [address] Phone Care Team Providers Care [employer] Hazmat Tanker Driver Name Role Phone Luly Newton MD Primary Care Provider [phone] Encounter Details Date Type Department Care Team (Late st Contact Info) Description 07/13/2023 Orders Only [facility] [address] [place] [address] Daniel Dumont DO [address] [facility] [address] [place] [address] Hyponatremia Social History Tobacco Use [...] Visit [facility] [address] [place] [address] Daniel Dumont DO [address] [facility] [address] [place] [address] documented as of this encounter Visit Diagnoses Diagnosis Hyponatremia documented in this encounter Care Teams Regional [employer] Hazmat Tanker Driver Relationship Specialty Start Date End Date Luly Newton MD [address] [place] [address] 104 [place] [address] PCP - General Internal Medicine 02/13/23 documented as of this encounter
--- OUTSIDE RECORDS SUMMARY | 2025-04-20 06:20 | XMS_ITS | Encounter Summary ---
Author Organization [facility] [place], Address [address] [place] [address] Phone Care Team Providers Care Reference Librarian Name Role Phone Luly Newton MD Primary Care Provider [phone] Encounter Details Date Type Department Care Team (Late st Contact Info) Description 03/06/2025 Orders Only [facility] [address] [place] [address] Daniel Dumont DO [address] [facility] [place] [address] Hyponatremia; Hypertension Social History Tobacco [...] Visit [facility] [address] [place] [address] Daniel Dumont DO [address] [facility] [place] [address] documented as of this encounter Visit Diagnoses Diagnosis Hyponatremia Hypertension documented in this encounter Care Teams Reference Librarian Relationship Specialty Start Date End Date Luly Newton MD [address] [place] [address] PCP - General Internal Medicine 02/13/23 documented as of this encounter
--- OUTSIDE RECORDS SUMMARY | 2025-04-20 06:20 | XMS_ITS | Encounter Summary ---
Author Organization [facility] [place], Address [address] [place] [address] Phone Care Team Providers Care Freight Car Repairer Name Role Phone Luly Newton MD Primary Care Provider [phone] Encounter Details Date Type Department Care Team (Late st Contact Info) Description 07/11/2023 Documentation Only [facility] [address] [place] [address] Daniel Dumont DO [address] [facility] [place] [address] Social History Tobacco Use Types [...] [facility] [address] [place] [address] Daniel Dumont DO [address] [facility] [place] [address] documented as of this encounter Visit Diagnoses Not on filedocumented in this encounter Care Teams Freight Car Repairer Relationship Specialty Start Date End Date Luly Newton MD [address] [place] [address] 104 [place] [address] PCP - General Internal Medicine 02/13/23 documented as of this encounter
--- OUTSIDE RECORDS SUMMARY | 2025-04-20 06:21 | XMS_ITS | Encounter Summary ---
Author Organization [facility] Address [address] [facility] [address] [place] [address] Phone Care Team Providers Care Human Resources Receptionist Name Role Phone Shabana Newton MD Primary Care Provider [phone] Encounter Details Date Type Department Care Team (Late st Contact Info) Description 07/23/2019 Procedure Pass [facility] Endoscopy Admitting Dept Virtual Department [address] [place] [address] Social History Tobacco Use Types Packs/Day Years [...] in this encounter Care Teams Human Resources Receptionist Relationship Specialty Start Date End Date Shabana Newton MD [address] [place] [address] 104 [place] [address] PCP - General Internal Medicine 06/23/19 documented as of this encounter Additional Source Comments The information contained in this document represents components of the legal health record. It is not the complete legal health record.[facility]
--- OUTSIDE RECORDS SUMMARY | 2025-04-20 06:21 | XMS_ITS | Encounter Summary ---
Author Organization [facility] [place], Address [address] [place] [address] Phone Care Team Providers Care Insurance Loss Control Surveyor Name Role Phone Luly Newton MD Primary Care Provider [phone] Encounter Details Date Type Department Care Team (Late st Contact Info) Description 09/12/2024 Orders Only [facility] [address] [place] [address] Daniel Dumont DO [address] [facility] [place] [address] Hyponatremia; Hypertension Social History Tobacco [...] [facility] [address] [place] [address] Daniel Dumont DO [address] [facility] [place] [address] documented as of this encounter Visit Diagnoses Diagnosis Hyponatremia Hypertension documented in this encounter Care Teams Insurance Loss Control Surveyor Relationship Specialty Start Date End Date Luly Newton MD [address] [place] [address] PCP - General Internal Medicine 02/13/23 documented as of this encounter
--- OUTSIDE RECORDS SUMMARY | 2025-04-20 06:21 | XMS_ITS | Encounter Summary ---
Author Organization [facility] [place], Address [address] [place] [address] Phone Care Team Providers Care Swedger Name Role Phone Luly Newton MD Primary Care Provider [phone] Encounter Details Date Type Department Care Team (Late st Contact Info) Description 01/04/2024 Orders Only [facility] [address] [place] [address] Daniel Dumont DO [address] [facility] [place] [address] Hyponatremia; Hypertension Social History Tobacco [...] Visit [facility] [address] [place] [address] Daniel Dumont DO [address] [facility] [place] [address] documented as of this encounter Visit Diagnoses Diagnosis Hyponatremia Hypertension documented in this encounter Care Teams Swedger Relationship Specialty Start Date End Date Luly Newton MD [address] [place] [address] PCP - General Internal Medicine 02/13/23 documented as of this encounter
--- OUTSIDE RECORDS SUMMARY | 2025-04-20 06:21 | XMS_ITS | Encounter Summary ---
Author Organization [facility] Address [address] [place] [address] Phone Care Team Providers Care Flight Radio Officer Name Role Phone Luly Newton MD Primary Care Provider [phone] Encounter Details Date Type Department Care Team (Late st Contact Info) Description 11/02/2023 Orders Only [facility] [address] [facility] [place] [address] Daniel Dumont DO [address] [facility] [place] [address] Hyponatremia Social History Tobacco Use [...] Visit [facility] [address] [facility] [address] [facility] [place] [address] Daniel Dumont DO [address] [facility] [address] [place] [address] documented as of this encounter Visit Diagnoses Diagnosis Hyponatremia documented in this encounter Care Teams Flight Radio Officer Relationship Specialty Start Date End Date Luly Newton MD [address] [place] [address] 104 [place] [address] PCP - General Internal Medicine 02/13/23 documented as of this encounter
--- OUTSIDE RECORDS SUMMARY | 2025-04-20 06:21 | XMS_ITS | Encounter Summary ---
Author Organization [facility], Address [address] [place] [address] Phone Care Team Providers Care Vegetable Cook Name Role Phone Luly Netwon MD Primary Care Provider [phone] Encounter Details Date Type Department Care Team (Late st Contact Info) Description 01/25/2024 Orders Only [facility] [address] [place] [address] Daniel Dumont DO [address] [place] [address] Hyponatremia Social History Tobacco [...] Visit [facility] [address] [address] Daniel Dumont DO [address] [place] [address] documented as of this encounter Procedures Procedure Name Priority Date/Time Associated Diagnosis Comments RENAL FUNCTION PANEL Routine 11/19/2024 10:33 AM EDT documented in this encounter Results * (ABNORMAL) Renal Function Panel (11/19/2024 10:33 AM EDT) Glucose 89 70 - 99 mg/dL [facility] BUN 15 8 - 27 mg/dL [facility] Creatinine 0.79 0.76 - 1.27 mg/dL [facility] eGFR CKD-EPI CR 2020 93 >59 mL/min/1.7 3 [facility] BUN/Creatinine Ratio 19 10 - 24 [facility] Sodium 131(L) 134 - 144 mmol/L [facility] Potassium 3.7 3.5 - 5.2 mmol/L [facility] Chloride 90(L) 96 - 106 mmol/L [facility] Bicarbonate (CO2) 22 20 - 29 mmol/L [facility] Calcium 9.9 8.6 - 10.2 mg/dL [facility] Albumin 5.1(H) 3.8 - 4.8 g/dL [facility] Phosphorus 3.2 2.8 - 4.1 mg/dL [facility] 11/19/2024 10:3 3 AM EDT 11/19/2024 us Daniel Dumont DO LAB BLOOD ORDERABLES Final Resu lt [facility] [address] [place] [address] documented in this encounter Visit Diagnoses Diagnosis Hyponatremia documented in this encounter Care Teams Vegetable Cook Relationship Specialty Start Date End Date Luly Newton MD [address] [place] [address], [address] [place] [address] PCP - General Internal Medicine 02/13/23 documented as of this encounter
--- OUTSIDE RECORDS SUMMARY | 2025-04-20 06:21 | XMS_ITS | Encounter Summary ---
Author Organization [facility], Address [address] [place] [address] Phone Care Team Providers Care Hoop Driving Machine Operator Name Role Phone Luly Newton MD Primary Care Provider [phone] Encounter Details Date Type Department Care Team (Late st Contact Info) Description 01/27/2023 Documentation Only [facility] [address] [place] [address] Daniel Dumont DO [address] [place] [address] Social History Tobacco Use Types [...] Visit [facility] [address] [place] [address] Daniel Dumont DO [address] [place] [address] documented as of this encounter Visit Diagnoses Not on filedocumented in this encounter Care Teams Hoop Driving Machine Operator Relationship Specialty Start Date End Date Luly Newton MD [address] [place] [address] [address] [place] [address] PCP - General Internal Medicine 02/13/23 documented as of this encounter
--- OUTSIDE RECORDS SUMMARY | 2025-04-20 06:21 | XMS_ITS | Data Portability ---
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 Procedures Surgical History Date Name Laterality Status Provider Name and Address Organization Details Recorded Time 04/03/2024 Sports Knee 4&1 cancelled Weston Oakes PA-C [address], [place], [address], [facility] 04/03/2024 07:33:56 01/03/2024 Sports Knee 4&1 completed Weston Oakes PA-C [address], [place], [address], [facility] 01/03/2024 07:33:11 10/01/2023 Sports Knee 4&1 completed Weston Oakes PA-C [address] [address], [place], [address], [facility] 10/01/2023 07:39:31 Imaging Results None recorded. Procedure Notes None recorded. Medical Equipment None Reported. Allergies Allergen ID Allergen Name Allergen Category Reaction Reaction Severity Criticality Documentation Date Start Date Code Code System Note Provider Name and Address Organization Details Recorded Time 49416 Product containin g penicilli n (product) medicatio n swelling Not available Not available 08/13/20232017 72258 8001 SNOMED Not Available [facility] 11:39:11 Medications Name Sig Start Date Stop [...] Updated DateTime 10/01/2023 172.72 cm 25.8 kg/m2 83366.7 g PRIMO MIRZA [facility] 10/01/2023 09:49:15 Date Recorded Body height Body mass index (BMI) Body weight Provider Name and Address Organization Details Last Updated DateTime 01/03/2024 172.72 cm 25.8 kg/m2 99003.7 g ARASELI WHITNEY [facility] 01/03/2024 08:44:06 Social History None recorded. Functional Status None recorded. Mental Status None recorded. Family History Nothing Reported. Medical History No medical history recorded. Past Encounters Encounter ID Performer Location Encounter Start Date Encounter Closed Date Diagnosis/Indication Diagnosis SNOMED-CT Code Diagnosis ICD10 Code Diagnosis IMO Codes Diagnosis Note [id number] SERAFIN [facility] [place] [address] 10/01/2023 09:39:57 10/22/2023 06:46:39 Osteoarthritis of left knee joint [id number] 51520 M17.12 [id number] Weston Oakes PA-C [address] [place] [address] 01/03/2024 08:31:57 01/23/2024 15:15:04 Osteoarthritis of left knee joint 9601376221 59625 M17.12 Health Concerns Section Related Observation LastModified by Organization Detai ls LastModified Time None Recorded Concern Status LastModified by Organization Details LastModified Time None Recorded Advance Directives Directive None Recorded Payers Insurance Date Sequence Insurance Name Policy Number Policy Hillman Covered Member ID Hillman Member ID Guarantor Name 04/02/2024 1 [facility]: [place] BLUE (MEDICARE REPLACEMENT PPO) [id number] Luis Angel Scott [id number] Luis Angel Scott Notes Date Note [...] continued conservative treatment. Weston Oakes PA-C [address], [place], [address], [facility] 10/01/2023 16:44:48 [...] continued conservative treatment. Weston Oakes PA-C [address], [place], [address], [facility] 01/04/2024 07:25:10
--- OUTSIDE RECORDS SUMMARY | 2025-04-20 06:21 | XMS_ITS | Encounter Summary ---
Author Organization [facility] [place], Address [address] [place] [address] Phone Care Team Providers Care Top Precipitator Operator Helper Name Role Phone Luly Newton MD Primary Care Provider [phone] Encounter Details Date Type Department Care Team (Late st Contact Info) Description 02/09/2023 Documentation Only [facility] [address] [place] [address] Daniel Dumont DO [address] [facility] [place] [address] Social History Tobacco Use Types [...] [facility] [address] [place] [address] Daniel Dumont DO [address] [facility] [address] [place] [address] documented as of this encounter Visit Diagnoses Not on filedocumented in this encounter Care Teams Top Precipitator Operator Helper Relationship Specialty Start Date End Date Luly Newton MD [address] [place] [address] [address] [place] [address] PCP - General Internal Medicine 02/13/23 documented as of this encounter
--- OUTSIDE RECORDS SUMMARY | 2025-04-20 06:21 | XMS_ITS | Clinical Summary ---
Author Organization [facility] [place], Address [address] [place] [address] [place] [address] Phone Care Team Providers Care Spindle Frame Carver Name Role Phone Luly Newton MD Primary Care Provider [phone] Allergies Active Allergy Reactions Criticality Noted Date [...] AND ONE TABLET BEFORE BEDTIME. 90 tablet 025 Discontinued Active Problems Problem Noted Date Diagnosed Date H/O: urinary disease 11/19/2024 Acute kidney failure with tubular necrosis 02/14 Hypertension 02/13/2023 Hyponatremia 02/13/2023 Encounters Date Type Department Care Team Description 04/13/2025 Refill [facility] [address] [place] [address] Daniel Dumont DO 03/06/2025 Orders Only [facility] [address] [place] [address] Daniel Dumont DO Hyponatremia; Hypertension 02/26/2025 Refill [facility] [address] [place] [address] Daniel Dumont DO from Last 3 Months [...] Office Visit [facility] [address] [place] [address] Daniel Dumont, DO [address] [place] [address] Health Maintenance Due Date Last Done Comments Pneumococcal Vaccine: 50+ Ye ars (2 of 2 - PCV) 05/18/2018 05/18/2017 Influenza Vaccine (#1) 2025 Hepatitis B Vaccine Aged Out No longe r eligible based on patient's age to complete this topic Insurance [facility] Care Teams Spindle Frame Carver Relationship Specialty Start Date End Date Luly Newton MD [address] [place] [address] [address] [place] [address] PCP - General Internal Medicine 02/13/23
--- OUTSIDE RECORDS SUMMARY | 2025-04-20 06:21 | XMS_ITS | Encounter Summary ---
Author Organization [facility], Address [address] [place] [address] Phone Care Team Providers Care Director Of Front Office Name Role Phone Luly Newton MD Primary Care Provider [phone] Encounter Details Date Type Department Care Team (Late st Contact Info) Description 02/13/2023 Documentation Only [facility] [address] [place] [address] Daniel Dumont DO [address] [place] [address] Social History Tobacco Use Types [...] [facility] [address] [place] [address] Daniel Dumont DO [address] [place] [address] documented as of this encounter Visit Diagnoses Not on filedocumented in this encounter Care Teams Director Of Front Office Relationship Specialty Start Date End Date Luly Newton MD [address] [place] [address] [address] [place] [address] PCP - General Internal Medicine 02/13/23 documented as of this encounter
--- OUTSIDE RECORDS SUMMARY | 2025-04-20 06:21 | XMS_ITS | Encounter Summary ---
Author Organization [facility] Address [address] [facility] [address] [place] [address] Phone Care Team Providers Care Automotive General Sales Manager Name Role Phone Shabana Newton MD Primary Care Provider [phone] Encounter Details Date Type Department Care Team (Late st Contact Info) Description 06/23/2019 Procedure Pass [facility] Endoscopy Admitting Dept Virtual Department [address] [place] [address] Social History Tobacco Use Types Packs/Day Years [...] on filedocumented in this encounter Care Teams Automotive General Sales Manager Relationship Specialty Start Date End Date Shabana Newton MD [address] [place] [address] [address] [place] [address] PCP - General Internal Medicine 06/23/19 documented as of this encounter Additional Source Comments The information contained in this document represents components of the legal health record. It is not the complete legal health record.[facility]
--- OUTSIDE RECORDS SUMMARY | 2025-04-20 06:21 | XMS_ITS | Encounter Summary ---
Author Organization [facility] Address [address] [place] [address] Phone Care Team Providers Care Ear Flap Binder Name Role Phone Luly Newton MD Primary Care Provider [phone] Encounter Details Date Type Department Care Team (Late st Contact Info) Description 02/28/2024 Documentation Only [facility] [address] [place] [address] [place], [place] [address] [place] [address] Social History Tobacco Use Types [...] [facility] [address] [place] [address] Daniel Dumont [address] [place] [address] documented as of this encounter Visit Diagnoses Not on filedocumented in this encounter Care Teams Ear Flap Binder Relationship Specialty Start Date End Date Luly Newton MD [address] [place] [address] [address] [place] [address] PCP - General Internal Medicine 02/13/23 documented as of this encounter
--- OUTSIDE RECORDS SUMMARY | 2025-04-20 06:21 | XMS_ITS | Encounter Summary ---
Author Organization [facility] Address [address] [place] [address] Phone Care Team Providers Care Research Administrator Name Role Phone Luly Newton MD Primary Care Provider [phone] Encounter Details Date Type Department Care Team (Late st Contact Info) Description 02/22/2024 Orders Only [facility] [address] [place] [address] Daniel Dumont DO [address] [place] [address] Hyponatremia Social History Tobacco Use [...] [facility] [address] [place] [address] Daniel Dumont DO [address] [place] [address] documented as of this encounter Visit Diagnoses Diagnosis Hyponatremia documented in this encounter Care Teams Research Administrator Relationship Specialty Start Date End Date Luly Newton MD [address] [place] [address] [address] [place] [address] PCP - General Internal Medicine 02/13/23 documented as of this encounter
--- OUTSIDE RECORDS SUMMARY | 2025-04-20 06:21 | XMS_ITS | Encounter Summary ---
Author Organization [facility] [place], Address [address] [place] [address] Phone Care Team Providers Care Chief Drafter Name Role Phone Luly Newton MD Primary Care Provider [phone] Encounter Details Date Type Department Care Team (Late st Contact Info) Description 02/13/2023 Documentation Only [facility] [address] [place] [address] Daniel Dumont DO [address] [place] [address] Social History Tobacco Use Types [...] [facility] [address] [place] [address] Daniel Dumont DO [address] [place] [address] documented as of this encounter Visit Diagnoses Not on filedocumented in this encounter Care Teams Chief Drafter Relationship Specialty Start Date End Date Luly Newton MD [address] [place] [address] 104 [place] [address] PCP - General Internal Medicine 02/13/23 documented as of this encounter
--- OUTSIDE RECORDS SUMMARY | 2025-04-20 06:21 | XMS_ITS | Encounter Summary ---
Author Organization [facility] [place], Address [address] [place] [address] Phone Care Team Providers Care Travel Guide Name Role Phone Luly Newton MD Primary Care Provider [phone] Encounter Details Date Type Department Care Team (Late st Contact Info) Description 03/28/2024 Orders Only [facility] [address] [place] [address] Daniel Dumont DO [address] [place] [address] Hyponatremia; Hypertension Social History Tobacco [...] And [facility] [address] [place] [address] Daniel Dumont DO [address] [place] [address] documented as of this encounter Visit Diagnoses Diagnosis Hyponatremia Hypertension documented in this encounter Care Teams Travel Guide Relationship Specialty Start Date End Date Luly Newton MD [address] [place] [address] PCP - General Internal Medicine 02/13/23 documented as of this encounter
--- OUTSIDE RECORDS SUMMARY | 2025-04-20 06:21 | XMS_ITS | Encounter Summary ---
Author Organization [facility] [place], Address [address] [place] [address] Phone Care Team Providers Care Pilot Plant Operator Name Role Phone Luly Newton MD Primary Care Provider [phone] Encounter Details Date Type Department Care Team (Late st Contact Info) Description 02/14/2023 Documentation Only [facility] [address] [place] [address] Luly Newton MD [address] [place] [address] Social History Tobacco Use Types Packs/Day Years [...] [facility] [address] [place] [address] Daniel Dumont [address] [place] [address] documented as of this encounter Visit Diagnoses Not on filedocumented in this encounter Care Teams Pilot Plant Operator Relationship Specialty Start Date End Date Luly Newton MD [address] [place] [address] PCP - General Internal Medicine 02/13/23 documented as of this encounter
--- OUTSIDE RECORDS SUMMARY | 2025-04-20 06:21 | XMS_ITS | Data Portability ---
Author Organization [facility], [id number] Address [address] [place] [address] Assessment No assessment recorded. Plan of Treatment [...] ICD10 Code Diagnosis IMO Codes Diagnosis Note [id number] [address] [place] [address] 05/14/2017 08:53:48 05/14/2017 10:00:32 [id number] [address] [place] [address] 06/23/2019 13:48:02 06/23/2019 15:14:27 [id number] [address] [place] [address] 10/20/2020 15:26:32 10/20/2020 16:16:34 [id number] [address] [place] [address] 07/22/2020 12:46:34 07/22/2020 13:52:23 Health Concerns Section Related Observation LastModified by Organization Detai ls LastModified Time None Recorded Concern Status LastModified by Organization Details LastModified Time None Recorded Advance Directives Directive None Recorded Payers Insurance Date Sequence Insurance Name Policy Number Policy Hillman Covered Member ID Hillman Member ID Guarantor Name 06/01/2022 1 [facility]: [place] BLUE (MEDICARE REPLACEMENT PPO) [id number] Luis Angel Scott [id number] Luis Angel Scott
--- OUTSIDE RECORDS SUMMARY | 2025-04-20 06:21 | XMS_ITS | Encounter Summary ---
Author Organization [facility] [place], Address [address] [place] [address] Phone Care Team Providers Care Paper Coating Supervisor Name Role Phone Luly Newton MD Primary Care Provider [phone] Encounter Details Date Type Department Care Team (Late st Contact Info) Description 09/07/2023 Orders Only [facility] [address] [place] [address] Daniel Dumont DO [address] [facility] [place] [address] Hyponatremia Social History Tobacco Use [...] [facility] [address] [place] [address] Daniel Dumont DO [address] [place] [address] documented as of this encounter Visit Diagnoses Diagnosis Hyponatremia documented in this encounter Care Teams Paper Coating Supervisor Relationship Specialty Start Date End Date Luly Newton MD [address] [place] [address] [address] [place] [address] PCP - General Internal Medicine 02/13/23 documented as of this encounter
--- OUTSIDE RECORDS SUMMARY | 2025-04-20 06:21 | XMS_ITS | Encounter Summary ---
Author Organization [facility] [place], Address [address] [place] [address] Phone Care Team Providers Care Cushion Maker Hand Name Role Phone Luly Newton MD Primary Care Provider [phone] Encounter Details Date Type Department Care Team (Late st Contact Info) Description 10/05/2023 Orders Only [facility] [address] [place] [address] Daniel Dumont DO [address] [place] [address] Hyponatremia Social History Tobacco Use [...] [facility] [address] [place] [address] Daniel Dumont DO [address] [place] [address] documented as of this encounter Visit Diagnoses Diagnosis Hyponatremia documented in this encounter Care Teams Cushion Maker Hand Relationship Specialty Start Date End Date Luly Newton MD [address] [place] [address] [address] [place] [address] PCP - General Internal Medicine 02/13/23 documented as of this encounter
--- OUTSIDE RECORDS SUMMARY | 2025-04-20 06:21 | XMS_ITS | Encounter Summary ---
Author Organization [facility] [place], Address [address] [place] [address] Phone Care Team Providers Care Electric Furnace Operator Name Role Phone Luly Newton MD Primary Care Provider [phone] Encounter Details Date Type Department Care Team (Late st Contact Info) Description 01/09/2025 Orders Only [facility] [address] [place] [address] Daniel Dumont DO [address] [place] [address] Hyponatremia; Hypertension Social History Tobacco [...] [facility] [address] [place] [address] Daniel Dumont DO [address] [place] [address] documented as of this encounter Visit Diagnoses Diagnosis Hyponatremia Hypertension documented in this encounter Care Teams Electric Furnace Operator Relationship Specialty Start Date End Date Luly Newton MD [address] [place] [address] PCP - General Internal Medicine 02/13/23 documented as of this encounter
--- OUTSIDE RECORDS SUMMARY | 2025-04-20 06:21 | XMS_ITS | Clinical Summary ---
Author Organization [facility] Address [address] [facility] [address] [place] [address] Phone Care Team Providers Care Vegetable Canner Name Role Phone Shabana Newton MD Primary Care Provider [phone] Allergies Active Allergy Reactions Criticality Noted Date [...] [place] MED[place]UE REPLACEMENT Care Teams Vegetable Canner Relationship Specialty Start Date End Date Shabana Newton MD [address] [place] [address] PCP - General Internal Medicine 06/23/19 Additional Source Comments The information contained in this document represents components of the legal health record. It is not the complete legal health record.[facility]
--- OUTSIDE RECORDS SUMMARY | 2025-04-20 06:21 | XMS_ITS | Encounter Summary ---
Author Organization [facility], Address [address] [place] [address] Phone Care Team Providers Care Paper Testing Supervisor Name Role Phone Luly Newton MD Primary Care Provider [phone] Encounter Details Date Type Department Care Team (Late st Contact Info) Description 12/28/2023 Orders Only [facility] [address] [place] [address] Daniel Dumont DO [address] [place] [address] Hyponatremia Social History Tobacco Use [...] Visit [facility] [address] [place] [address] Daniel Dumont DO [address] [facility] [place] [address] documented as of this encounter Visit Diagnoses Diagnosis Hyponatremia documented in this encounter Care Teams Paper Testing Supervisor Relationship Specialty Start Date End Date Luly Newton MD [address] [place] [address] [address] [place] [address] PCP - General Internal Medicine 02/13/23 documented as of this encounter
--- OUTSIDE RECORDS SUMMARY | 2025-04-20 06:21 | XMS_ITS | Encounter Summary ---
Author Organization [facility], Address [address] [place] [address] Phone Care Team Providers Care Materials Planning Analyst Name Role Phone Luly Newton MD Primary Care Provider [phone] Encounter Details Date Type Department Care Team (Late st Contact Info) Description 04/04/2023 Documentation Only [facility] [address] [place] [address] Daniel Dumont DO [address] [facility] [place] [address] Social History Tobacco Use Types [...] [facility] [address] [place] [address] Daniel Dumont DO [address] [facility] [place] [address] documented as of this encounter Visit Diagnoses Not on filedocumented in this encounter Care Teams Materials Planning Analyst Relationship Specialty Start Date End Date Luly Newton MD [address] [place] [address] [address] [place] [address] PCP - General Internal Medicine 02/13/23 documented as of this encounter
--- OUTSIDE RECORDS SUMMARY | 2025-04-20 06:21 | XMS_ITS | Encounter Summary ---
Author Organization [facility], Address [address] [place] [address] Phone Care Team Providers Care Mask Former Name Role Phone Luly Newton MD Primary Care Provider [phone] Encounter Details Date Type Department Care Team (Late st Contact Info) Description 06/20/2024 Orders Only [facility] [address] [place] [address] Daniel Duomnt DO [address] [facility] [address] [place] [address] Hyponatremia; Hypertension Social History Tobacco [...] [facility] [address] [facility] [place] [address] Daniel Dumont DO [address] [facility] [address] [place] [address] documented as of this encounter Visit Diagnoses Diagnosis Hyponatremia Hypertension documented in this encounter Care Teams Mask Former Relationship Specialty Start Date End Date Luly Newton MD [address] [place] [address] PCP - General Internal Medicine 02/13/23 documented as of this encounter
--- OUTSIDE RECORDS SUMMARY | 2025-04-20 06:21 | XMS_ITS | Encounter Summary ---
Author Organization [facility], Address [address] [place] [address] Phone Care Team Providers Care Ophthalmic Aide Name Role Phone Luly Newton MD Primary Care Provider [phone] Encounter Details Date Type Department Care Team (Late st Contact Info) Description 03/21/2024 Orders Only [facility] [address] [place] [address] Daniel Dumont DO [address] [facility] [address] [place] [address] Hyponatremia Social History Tobacco Use [...] [facility] [address] [facility] [place] [address] Daniel Dumont DO [address] [facility] [address] [place] [address] documented as of this encounter Visit Diagnoses Diagnosis Hyponatremia documented in this encounter Care Teams Ophthalmic Aide Relationship Specialty Start Date End Date Luly Newton MD [address] [place] [address] [address] [place] [address] PCP - General Internal Medicine 02/13/23 documented as of this encounter
--- OUTSIDE RECORDS SUMMARY | 2025-04-20 06:21 | XMS_ITS | Encounter Summary ---
Author Organization [facility], Address [address] [place] [address] Phone Care Team Providers Care Photostat Operator Name Role Phone Luly Newton MD Primary Care Provider [phone] Encounter Details Date Type Department Care Team (Late st Contact Info) Description 04/30/2024 Documentation Only [facility] [address] [facility] [address] Daniel Dumont DO [address] [facility] [place] [address] Social History Tobacco Use Types [...] Visit [facility] [address] [place] [address] Daniel Dumont DO [address] [facility] [place] [address] documented as of this encounter Visit Diagnoses Not on filedocumented in this encounter Care Teams Photostat Operator Relationship Specialty Start Date End Date Luly Newton MD [address] [place] [address] [address] [place] [address] PCP - General Internal Medicine 02/13/23 documented as of this encounter
--- OUTSIDE RECORDS SUMMARY | 2025-04-20 06:21 | XMS_ITS | Encounter Summary ---
Author Organization [facility], Address [address] [place] [address] Phone Care Team Providers Care Negative Cleaner Name Role Phone Luly Newton MD Primary Care Provider [phone] Encounter Details Date Type Department Care Team (Late st Contact Info) Description 11/30/2023 Orders Only [facility] [address] [place] [address] Daniel Dumont DO [address] [facility] [place] [address] Hyponatremia Social History Tobacco Use [...] Visit [facility] [address] [place] [address] Daniel Dumont DO [address] [facility] [place] [address] documented as of this encounter Visit Diagnoses Diagnosis Hyponatremia documented in this encounter Care Teams Negative Cleaner Relationship Specialty Start Date End Date Luly Newton MD [address] [place] [address] [address] [place] [address] PCP - General Internal Medicine 02/13/23 documented as of this encounter
[2025-04-20] MEDS: Lactated Ringers 1,000 ML 50 ML IVCONT ×2 (06:36→12:57)
[2025-04-20 07:02] LABS: Anion Gap 12 (12-20); Blood Urea Nitrogen 13 mg/dL (9-16); Calcium 8.9 mg/dL (8.4-10.2); Carbon Dioxide 28 mmol/L (22-29); Chloride 92 mmol/L (96-108); Creatinine Clr Calc Pharmacy 86.0; Estimated Glomerular Filt Rate > 60; Potassium 3.8 mmol/L (3.3-5.1); Sodium 128 mmol/L (135-145)
--- NOTE | 2025-04-20 07:18 | MHC.SHP ---
Pre-Procedural Eval Section A - 24 Hr Update-Section A only Date of Service: 04/20/25 The patient is an INPATIENT: No Changes since office visit: Yes Patient answered all questions The patient has been examined within 24 hours of the surgical procedure. The History & Physical has been completed within 30 days and I have reviewed it.: Yes Section B - Complete if H&P > 30 days Chief Complaint: post op Allergies: Allergies Allergy/AdvReac Type Severity Reaction Status Date / Time daptomycin Allergy Unknown Verified 04/20/25 06:47 lisinopril Allergy Nausea Verified 04/20/25 06:47 Penicillins AdvReac swollen Verified 04/20/25 06:47 Plan I have reviewed the history and physical and performed a pertinent physical examination on my patient. No changes have occurred unless specified. Time Spent With Patient Time: Total time managing care of this patient today ____ minutes.
--- NOTE | 2025-04-20 07:19 | PC.NURSE ---
Vancomycin 1500 mg dose returned. No yellow sticker instructions in [facility] and pharmacy stated to mix with NS 250 ML, but [facility] stated 500 ML NS to be mixed with this dose. Author verified with pharmacy again and stated to mix with NS 500 ML as ordered in [facility]. Second vial pulled and mixed correctly and antibiotic started via pump.
--- NOTE | 2025-04-20 07:53 | PC.NURSE ---
dr. ferguson reviewed lab draw results from today and reviewed sodium lab trends from dr. johnson notes from 2022/2023. okay to proceed with sodium [address] ferguson. will change fluids in room to ns.
--- NOTE | 2025-04-20 10:20 | W.PM.OPN ---
Operative Note Operative Note Date of Service: 04/20/25 Narrative: Operative note by [facility] Preoperative diagnosis:1. Right Carotid stenosis 2. Prior cerebrovascular accident Postoperative diagnosis: Same Procedure: Right Carotid endarterectomy with patch angioplasty Surgeon:Steve Kumar M.D. Research Professional: Dr. Ardon Anesthesia: General Specimens: 1 Drains: 1 Estimated blood loss: 100 mL Indications: 75-year-old gentleman with right carotid stenosis with prior CVA presents for right carotid endarterectomy. This was confirmed on CT angiogram prior to surgery. The patient has signed the informed consent after reviewing risks, complications, benefits, and alternatives previously discussed with the patient. The patient was given the opportunity to ask any additional questions or voice any concerns. All questions were answered to the patient's satisfaction. Procedure in detail: Patient was taken to the operating room and placed in a supine position and prepped and draped in sterile manner with ChloraPrep. Longitudinal incision was made along the anterior border of the right sternocleidomastoid carried down through the subcutaneous fat and fascia. Hemostasis was obtained with electrocautery. The platysma muscle was then divided. The carotid sheath was identified in open. The vagus nerve, Ancef cervicalis, and hypoglossal nerves were identified and avoided. The common internal and external carotids were then freed from the surrounding tissue. At this point, 5000 units of heparin was administered and allowed to circulate for 5 minutes time to take effect. The internal, common, external carotids were clamped in that order. Once this was accomplished, we proceeded with the procedure. The carotid bulb was opened with an 11 blade and extended with Dutta scissors through the very tight lesion into normal internal carotid artery. This was then extended down into the common carotid artery. We then placed a Zamarripa shunt. Then the plaque was sharply excised proximally and an eversion endarterectomy was performed successfully at the external. The plaque tapered nicely on to the internal and no tacking sutures were necessary. Heparinized saline was injected and no evidence of flapping or other debris was noted. The remaining carotid was examined, which showed no debris or flaps present. At this point a XenoSure patch was brought on to the field. This was anastomosed to the artery using a 6 0 Prolene in a running fashion. Once approximately 4/5 of the patch was sewn in the shunt was then removed. Prior to the last stitch the internal carotid was back bled through this. Heparinized saline was instilled into the carotid. The last stitch was tied. Hemostasis was excellent. The internal carotid was gently occluded while while of the external and internal were open in that order. Finally the internal was then opened and flow was restored to the entire system. Hemostasis was achieved with interrupted 7-0 Prolene sutures. The wound was irrigated thoroughly. We then placed a 7 flat Mateusz-Milner drain. Deep layer was reapproximated using a 2-0 poly Sorb and finally the superficial layer with a 3-0 Polysorb. The skin was closed in a subcuticular manner. The patient awoke and neurologic status was checked and appeared to be intact. Sponge, needle and instrument counts were correct. The patient tolerated the procedure well. Returned to recovery with stable vitals. This note is constructed using voice recognition software. While every effort has been made to ensure accuracy, document processor errors may have been included. Thank you for allowing me to participate in the care of your patient. Yours sincerely, Steve Kumar MD, FACS, R.P.V.I.
--- NOTE | 2025-04-20 11:50 | PHA.MEDREC ---
Addendum entered by Ellis Rizzo, Odette 04/20/25 13:16: MED REC CHECKED BY [facility] Original Note: Pharmacy Consult ? Medication Reconciliation Pharmacy has reviewed the medication reconciliation done by nursing. Claims match med list.
--- NOTE | 2025-04-20 12:28 | PM.CCHP ---
History of Present Illness Date of Service: 04/20/25 Chief Complaint: Right Carotid endarterectomy with patch angioplasty 75-year-old gentleman with past medical history of CVA in 02/2025, hypertension, hyperlipidemia was recently admitted in February 2025 due to vision loss underwent MRI of the brain which showed acute ischemia in right basal ganglia, CTA of the neck showed 60% right ICA stenosis. So today he is admitted to the hospital for an elective right carotid endarterectomy with patch angioplasty which he underwent successfully without any complications. Admitted to the ICU for post surgery monitoring. [facility] Past Medical History Medical History (Updated 04/20/25 @ 13:02 by Sea Augutsin MD) CVA (cerebral vascular accident) Dyspnea on exertion Osteoarthritis Erectile dysfunction Hypercholesteremia Diskitis Tubular adenoma SIAD (syndrome of inappropriate antidiuresis) Thoracic aortic aneurysm Constipation CAD (coronary artery disease) History of rib fracture Hard of hearing History of MRSA infection Back pain GERD (gastroesophageal reflux disease) Weakness Habitual snoring High cholesterol Hypertension Family History Family History Mother Heart failure Heart attack Father Acute anxiety Depression Surgical History Surgical History History of back surgery History of esophagogastroduodenoscopy (EGD) Hx of tonsillectomy History of total right knee replacement (~2017) Hx of cataract extraction H/O colonoscopy Knee joint replacement status Social History Social History Household Members: Spouse Housing: House Are you a primary child care worker to a significant other at home: No Do you presently have visiting nurse or other home services: No Alcohol intake: current Alcohol intake frequency: 3 or more drinks per day Alcohol type: beer Patient Tobacco Use Status: Former Tobacco user Use of substances other than those prescribed or required for medical reasons: No Have you been hit, kicked, punched, or otherwise hurt by someone within the past year? If so, by whom?: No Do you feel safe in your current relationship?: Yes Is there a partner from a previous relationship who is making you feel unsafe now?: No Are you made to feel afraid or neglected: No Advance Directives: Yes Advance Directives Information Provided: No Advance Directives on File: Yes Advance Directives Date on File: 02/24/25 Do you have a plan to hurt others: No Plan Recently lost weight without trying: No How much weight loss: Not applicable Eating poorly because of decreased appetite: No Nutrition screen score: 0 Nutrition Risks: Dental problems Poor oral hygiene: Yes service: No Current occupational status: 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 Allergies Allergy/AdvReac Type Severity Reaction Status Date / Time daptomycin Allergy Unknown Verified 04/20/25 06:47 lisinopril Allergy Nausea Verified 04/20/25 06:47 Penicillins AdvReac swollen Verified 04/20/25 06:47 Active Medications: Current Medications Acetaminophen (Acetaminophen 325 Mg Tablet) 650 mg PO Q6H PRN PRN Reason: Pain, Mild 1-3,fever,headache Calcium Carbonate (Calcium Carbonate 750 Mg Tab.Chew) 750 mg PO Q4H PRN PRN Reason: Heartburn Fentanyl (Fentanyl Citrate/Pf 100 Mcg/2 Ml Vial) 25 mcg IVPUSH Q5M PRN PRN Reason: Pain, Moderate to Severe (Pain Scale 4-10) Stop: 04/20/25 13:20 Hydromorphone HCl (Hydromorphone Hcl 0.5 Mg/0.5 Ml Syringe) 0.25 mg IVPUSH Q5M PRN PRN Reason: Pain, Moderate to Severe (Pain Scale 4-10) Stop: 04/20/25 13:20 Lactated Ringer's (Lr) 1,000 mls @ 50 mls/hr IVCONT .Q20H [facility] Last Infusion: 04/20/25 12:20 Dose: Infused Lactated Ringer's (Lr) 500 mls @ 20 mls/hr IVCONT .Q24H [facility] Vancomycin HCl 1,500 mg/ (Sodium Chloride) 500 mls @ 333.333 mls/hr IV POSTOP ONE Stop: 04/20/25 20:29 Magnesium Hydroxide (Milk Of Magnesia 30 Ml Oral.Susp) 30 ml PO DAILY PRN PRN Reason: Constipation Melatonin (Melatonin 3 Mg Tablet) 6 mg PO BEDTIME PRN PRN Reason: Insomnia Morphine Sulfate (Morphine Sulfate 4 Mg/Ml Cartridge) 2 mg IVPUSH Q4H PRN; Protocol PRN Reason: Pain, Severe (Pain Scale 7-10) Naloxone HCl (Naloxone Hcl 0.4 Mg/Ml Vial) 0.04 mg IVPUSH Q5M PRN PRN Reason: Excessive sedation or RR < 8 Naloxone HCl (Naloxone Hcl 0.4 Mg/Ml Vial) 0.2 mg IVPUSH Q2M PRN PRN Reason: Excessive sedation or RR < 8 Ondansetron HCl (Ondansetron Hcl 4 Mg/2 Ml Vial) 4 mg IVPUSH ONCE PRN PRN Reason: Nausea and Vomiting Stop: 04/20/25 13:20 Oxycodone HCl (Oxycodone Hcl Immed Release 5 Mg Tablet) 5 mg PO Q4H PRN PRN Reason: Pain, Moderate(Pain Scale 4-6) Pharmacy Consult (Consult Rx Vancomycin Dosing) 1 each MISCELLANE DAILY PRN PRN Reason: Consult order Sodium Chloride (0.9 % Sodium Chloride Flush 3 Ml Syringe) 3 ml IVFLUSH [facility] Medications ?Medication ?Instructions ?Recorded ?Confirmed ?Last Taken ?Type omeprazole 20 mg capsule,delayed 20 mg PO DAILY 06/03/22 04/08/25 04/20/25 History release amlodipine 10 mg tablet 10 mg PO DAILY 08/16/23 04/08/25 04/20/25 History tamsulosin 0.4 mg capsule 0.4 mg PO DAILY 08/16/23 04/08/25 02/23/25 History sodium chloride 1,000 mg soluble 1,000 mg PO BID 03/18/25 04/08/25 Unknown History tablet ascorbic acid (vitamin C) 500 mg 500 mg PO DAILY 04/08/25 04/08/25 Unknown History tablet (Vitamin C) atorvastatin 40 mg tablet 40 mg PO BID 04/08/25 04/08/25 04/20/25 History multivitamin 1 tab PO DAILY 04/08/25 04/08/25 Unknown History valsartan 40 mg tablet 40 mg PO DAILY 04/08/25 04/08/25 Unknown History Physical Exam Vital Signs: Vital Signs: Last Vital Signs Temp 97.2 F 04/20/25 11:10 Pulse 79 04/20/25 11:25 Resp 12 04/20/25 11:25 BP 146/63 H 04/20/25 11:25 Pulse Ox 100 04/20/25 11:25 O2 Del Method Nasal Cannula 04/20/25 11:25 O2 Flow Rate 2 04/20/25 11:25 BMI result Body Mass Index 26.5 General: not in any acute distress, comfortable, sleeping in the bed Nutritional Appearance: well nourished and normal weight Eyes: appearance normal, both eyes and all related structures; Alignment and Position: alignment normal and position normal Neck: No lymphadenopathy, no thyromegaly Resp: bilateral air entry equal, no added sounds present Cardio: Regular rate, regular rhythm; Heart sounds: S1 normal heart sound present and S2 normal heart sound present GI: soft, nontender, no guarding, no hepatosplenomegaly : bladder normal to inspection, bladder normal to palpation, no renal angle tenderness Skin: no rashes or lesions noted and elasticity normal Neuro: alert, oriented x 3, moves all extremities Results Labs 04/08/25 11:08 04/20/25 06:39 Labs: Laboratory Results - last 24 hr 04/20/25 06:39 Anion Gap 12 Estim Creat Clear Calc 86.0 Estimated GFR > 60 Random Glucose 94 Calcium 8.9 Blood Type O Positive Antibody Screen NEGATIVE Assessment and Plan (1) Hypertension: Status: Acute (2) Carotid stenosis: Qualifiers: Laterality: right Qualified Code(s): I65.21 - Occlusion and stenosis of right carotid artery Status: Acute (3) CVA (cerebral vascular accident): Status: Acute (4) Hyperlipidemia: Status: Acute Plan 75-year-old gentleman with past medical history of CVA in 02/2025, hypertension, hyperlipidemia was recently admitted in February 2025 due to vision loss underwent MRI of the brain which showed acute ischemia in right basal ganglia, CTA of the neck showed 60% right ICA stenosis. So today he is admitted to the hospital for an elective right carotid endarterectomy with patch angioplasty which he underwent successfully without any complications. We will closely monitor his blood pressures, maintain normotension We will watch for any signs of dysphagia or dysphonia or neck swelling We will closely monitor H&H Continue statins for hyperlipidemia and CVA; aspirin to be restarted as per vascular surgery Hypertension: Currently blood pressure is on the lower side On valsartan 40, amlodipine 10 and tamsulosin 0.4 at home which we will withhold for now. Chronic hyponatremia: patient has chronic hypoanrtremia dating back to 2020 with sodium between 125-130. will get urine sodium and urine osmolality to rule out SIADH vs osmotic restat syndrome. Prophylaxis: SCD
[2025-04-20] MEDS: oxyCODONE HCl Immed Release 5 MG TABLET PO (15:28)
--- NOTE | 2025-04-20 15:29 | PC.NURSE ---
Covering for primary RN Mick. 3:10 pm -- patient complaining of 8/10 pain to right neck area, where the incisions are, sharp when I move. Received 2 mg IV Morphine at 1 pm, ordered every 4 hours. Has oxycodone 5 mg PO ordered every 4 hours for pain level 4-6. Texted Dr. Kumar, stating patient's pain level, asking if he wanted to do another one time dose of morphine 2 mg, or try the oxycodone. Stacy responded back to use the oxycodone, even with pain level of 8. Mick returned off break, administered oxycodone. Will assess pain in 1 hour to see if any improvement.
[2025-04-20] MEDS: Throat Lozenge, Medicated LOZENGE 1 LOZENGE MUCOUS MEM (17:26)
--- NOTE | 2025-04-20 17:59 | PC.NURSE ---
Assumed care of patient from PACU just after 11:40 today. Patient with consistently c/o of 8/10 pain. after one time 2MG Dilaudid patient reports some pain improvement. SCD boots in place, ICU specialty bed with Isotour. A-line patent and functional, ELIZ drain emptied for 40 on this RN shift. Urine output is adequate, pale yellow. Mild swelling to at surgical site with small bloody drainage.
[2025-04-20] MEDS: Sodium Chloride Tab 1 GM TABLET PO (20:38)
[2025-04-21] VITALS (13 sets, daily range): BP systolic 125–149; BP diastolic 60–93; PULSE 74–106; RESP 12–20; TEMP 36.9–37.2; O2SAT 90–98
[2025-04-21] MEDS: 0.9 % Sodium Chloride Flush 3 ML SYRINGE IVFLUSH (00:44)
[2025-04-21] MEDS: oxyCODONE HCl Immed Release 5 MG TABLET PO (02:52)
[2025-04-21 05:19] LABS: MANUAL DIFF FLAG NO
[2025-04-21 05:20] LABS: Hematocrit 32.3 % (42.0-52.0); Hemoglobin 11.5 g/dl (14.0-18.0); Imm Gran Abs Auto 0.01 X10*3/uL (0.00-0.03); Imm Gran Pct Auto 0.1 % (0.0-0.4); Lymphocytes Absolute Auto 0.9 X10*3/uL (1.2-4.9); Mean Corpuscular HGB Conc 35.6 g/dl (31.0-36.0); Mean Corpuscular Hemoglobin 30.7 pg (27.0-33.0); Mean Corpuscular Volume 86.1 fL (80.0-98.0); NRBC Abs Auto 0.000 X10*3/uL (0.0-0.012); NRBC Pct Auto 0.0 /100WBC (0.0-0.2); Platelet Count 180 X10*3/uL (160-400); Red Blood Count 3.75 X10*6/uL (4.60-5.80); White Blood Count 7.5 X10*3/uL (4.8-10.8)
[2025-04-21 05:32] LABS: Anion Gap 12 (12-20); Blood Urea Nitrogen 7 mg/dL (9-16); Calcium 8.2 mg/dL (8.4-10.2); Carbon Dioxide 25 mmol/L (22-29); Chloride 101 mmol/L (96-108); Creatinine Clr Calc Pharmacy 106.5; Estimated Glomerular Filt Rate > 60; Potassium 3.4 mmol/L (3.3-5.1); Sodium 135 mmol/L (135-145)
[2025-04-21] MEDS: Lactated Ringers 1,000 ML 50 ML IVCONT (07:07)
[2025-04-21] MEDS: Sodium Chloride Tab 1 GM TABLET PO (07:30)
[2025-04-21] MEDS: Throat Lozenge, Medicated LOZENGE 1 LOZENGE MUCOUS MEM ×2 (07:35→09:22)
--- NOTE | 2025-04-21 08:48 | HO.POSTANES ---
Post Anesthesia Evaluation Post Anesthesia Evaluation Date of Service: 04/21/25 Vital Signs: Vital Signs Temp Pulse Resp BP Pulse Ox O2 Del Method O2 Flow Rate 04/21/25 07:00 76 20 146/93 H 98 Nasal Cannula 1 04/21/25 06:00 83 14 139/84 98 Nasal Cannula 1 04/21/25 04:47 98.9 F 74 13 139/60 95 Nasal Cannula 1 04/21/25 04:00 75 12 132/61 94 Nasal Cannula 1 04/21/25 03:00 78 13 128/78 96 Nasal Cannula 1 04/21/25 01:57 79 12 143/61 H 97 Nasal Cannula 1 04/21/25 01:00 74 15 125/63 97 Nasal Cannula 1 04/20/25 23:55 98.0 F 79 11 L 135/76 96 Nasal Cannula 1 04/20/25 22:58 76 14 136/62 98 Nasal Cannula 2 04/20/25 22:00 79 12 135/72 97 Nasal Cannula 2 04/20/25 21:00 96 12 112/75 96 Nasal Cannula 2 Anesthesia: General Mental Status: Awake Pain Control: Satisfactory Nausea/Vomiting: None Hydration: Adequate Anesthesia-Related Issues: No Anes. Related Issues
--- NOTE | 2025-04-21 08:51 | PM.DS ---
DS: Providers Provider Date of Service: 04/21/25 Date of admission: 04/20/25 06:08 Date of discharge: 04/21/25 Primary care physician: Shabana Newton MD DS: Diagnosis Discharge Diagnosis (1) Hypertension: Status: Acute (2) Carotid stenosis: Status: Acute (3) CVA (cerebral vascular accident): Status: Acute (4) Hyperlipidemia: Status: Acute DS: Summary Hospital Course Hospital Course: 75-year-old gentleman with past medical history of CVA in 02/2025, hypertension, hyperlipidemia was recently admitted in February 2025 due to vision loss underwent MRI of the brain which showed acute ischemia in right basal ganglia, CTA of the neck showed 60% right ICA stenosis. So today he is admitted to the hospital for an elective right carotid endarterectomy with patch angioplasty which he underwent successfully without any complications. He was admitted to ICU for post op monitoring which was uneventful. Patient has chronic hyponatremia, possibly SIADH as per urine studies but mild given low urine osmolality and reponse to fluids. From a carotid standpoint did well. No postoperative issues. ELIZ drain was removed postop day 1. Postop day 1 tolerating a regular diet and was neurologically intact and was subsequently discharged. Time Attestation Total time managing care of this patient today: 35 mintues. Discharge Coordination Time (in mins): 35 Quality: Safe Use of Opioids Does Pt have an Active Cancer Diagnosis on the Problem List?: No Quality: Stroke Does the patient have a stroke diagnosis?: No Reason for No Anti-thrombotic at DC: N/A - Med Ordered Reason for No Anticoagulant at DC: N/A - Med Ordered Reason Not Initiating IV-Tpa: N/A - Med Ordered Reason for No Anti-thrombotic by Day Two: N/A - Med Ordered Reason for No Statin at DC: N/A - Med Ordered Physical Exam Vital Signs: Vital Signs: Last Vital Signs Temp 98.9 F 04/21/25 04:47 Pulse 76 04/21/25 07:00 Resp 20 04/21/25 07:00 BP 146/93 H 04/21/25 07:00 Pulse Ox 98 04/21/25 07:00 O2 Del Method Nasal Cannula 04/21/25 07:00 O2 Flow Rate 1 04/21/25 07:00 BMI result Body Mass Index 26.5 General: not in any acute distress, ill appearing Nutritional Appearance: well nourished and overweight Eyes: appearance normal, both eyes and all related structures; Alignment and Position: alignment normal and position normal Neck: No lymphadenopathy, no thyromegaly, surgical site looks okay, small hematoma expected size Resp: bilateral air entry equal, no added sounds present Cardio: Regular rate, regular rhythm; Heart sounds: S1 normal heart sound present and S2 normal heart sound present GI: soft, nontender, no guarding, no hepatosplenomegaly : bladder normal to inspection, bladder normal to palpation, no renal angle tenderness Skin: no rashes or lesions noted and elasticity normal Neuro: alert, oriented x 3, moves all extremities DS: Data Data Completed and Pending Pending studies at discharge: Pending at discharge 04/20/25 09:33 Surgical [PTH] Routine Labs on day of discharge: Laboratory Results - last 24 hr 04/20/25 04/21/25 13:45 04:47 WBC 7.5 RBC 3.75 L D Hgb 11.5 L Hct 32.3 L MCV 86.1 MCH 30.7 MCHC 35.6 RDW 12.8 Plt Count 180 MPV 8.9 L Immature Gran % (Auto) 0.1 Neut % (Auto) 73.7 H Lymph % (Auto) 12.3 L [place] % (Auto) 11.3 H Eos % (Auto) 1.9 Baso % (Auto) 0.7 Lymph # (Auto) 0.9 L [place] # (Auto) 0.9 Eos # (Auto) 0.1 Baso # (Auto) 0.1 Abs Immat Gran (auto) 0.01 Absolute Neuts (auto) 5.5 Absolute Nucleated RBC 0.000 Nucleated RBC % (auto) 0.0 Sodium 135 Potassium 3.4 Chloride 101 Carbon Dioxide 25 Anion Gap 12 BUN 7 L Creatinine 0.59 Estim Creat Clear Calc 106.5 Estimated GFR > 60 Random Glucose 103 Calcium 8.2 L D Urine Osmolality 226 L Ur Random Sodium 52.0 Discharge Plan Discharge Anticipated Discharge Date/Time: 04/21/25 13:19 Patient Disposition: Home, Self-Care Discharge Diagnosis: Status post right carotid endarterectomy Referrals: Shabana Newton MD [Primary Care Provider, Medical] - 1 Week Discharge Medications: New oxycodone-acetaminophen [Endocet] 5-325 mg tablet 1 tab PO Q8H PRN (Reason: pain) Qty: 10 0RF Rx Instructions: Partial Fill upon patient request. Continued oxycodone 5 mg tablet 5 mg PO BID PRN (Reason: severe pain (scale score 7-10)) Qty: 14 0RF Rx Instructions: Partial Fill upon patient request. amlodipine 10 mg tablet 10 mg PO DAILY tamsulosin 0.4 mg capsule 0.4 mg PO DAILY sodium chloride 1,000 mg tablet,soluble 1,000 mg PO BID aspirin 81 mg Tablet,Delayed Release (Dr/Ec) 81 mg PO DAILY Qty: 90 0RF atorvastatin 40 mg tablet 80 mg PO DAILY multivitamin Tablet 1 tab PO DAILY ascorbic acid (vitamin C) [Vitamin C] 500 mg Tablet 500 mg PO DAILY valsartan 40 mg tablet 40 mg PO DAILY omeprazole 20 mg capsule,delayed release(DR/EC) 20 mg PO DAILY Discharge Orders: Discharge Order (Routine); Ordered 04/21/25 Ordered By: Steve Kumar Diet: Advance to usual diet Activity on Discharge: As tolerated Stand Alone Forms: Patient Portal Discharge page Print Language: [place] Care Plan Goals: Follow carotid Health Concerns: Carotid artery disease Plan of Treatment: Surveillance follow-up carotid Assessment: Status post right carotid endarterectomy Discharge Date/Time: 04/21/25 14:00
--- NOTE | 2025-04-21 10:05 | MHC.CM.PN ---
Addendum entered by Elise Shaw 04/21/25 13:44: Pt to d/c to home -no services: spouse to transport. Original Note: Met with pt to discuss d/c planning needs: pt resides w/spouse and describes himself as independent w/all care needs. No services or DME. Spouse to transport. HCP copy requested. CM to follow.
--- NOTE | 2025-04-21 14:11 | PM.DS ---
DS: Providers Provider Date of Service: 04/21/25 Date of admission: 04/20/25 06:08 Date of discharge: 04/21/25 Primary care physician: Shabana Newton MD DS: Diagnosis Discharge Diagnosis (1) Hypertension: Status: Acute (2) Carotid stenosis: Status: Acute (3) CVA (cerebral vascular accident): Status: Acute (4) Hyperlipidemia: Status: Acute DS: Summary Hospital Course Hospital Course: 75-year-old gentleman with past medical history of CVA in 02/2025, hypertension, hyperlipidemia was recently admitted in February 2025 due to vision loss underwent MRI of the brain which showed acute ischemia in right basal ganglia, CTA of the neck showed 60% right ICA stenosis. So today he is admitted to the hospital for an elective right carotid endarterectomy with patch angioplasty which he underwent successfully without any complications. He was admitted to ICU for post op monitoring which was uneventful. Patient has chronic hyponatremia, possibly SIADH as per urine studies but mild given low urine osmolality and reponse to fluids. From a carotid standpoint did well. No postoperative issues. ELIZ drain was removed postop day 1. Postop day 1 tolerating a regular diet and was neurologically intact and was subsequently discharged. Time Attestation Discharge Coordination Time (in mins): 35 minutes Quality: Safe Use of Opioids Does Pt have an Active Cancer Diagnosis on the Problem List?: No Quality: Stroke Does the patient have a stroke diagnosis?: No Physical Exam Vital Signs: Vital Signs: Last Vital Signs Temp 98.5 F 04/21/25 12:00 Pulse 105 H 04/21/25 13:00 Resp 15 04/21/25 13:00 BP 146/82 H 04/21/25 13:00 Pulse Ox 94 04/21/25 13:00 O2 Del Method Room Air 04/21/25 13:00 O2 Flow Rate 1 04/21/25 08:00 BMI result Body Mass Index 26.5 Const: General: cooperative, healthy appearing and no acute distress Orientation/consciousness: oriented to person, oriented to place and oriented to time HEENT: Head: Yes normal to inspection Neck: Other: Incision healing well Carotids: no bruits Chest: Chest palpation & inspection: normal inspection of the chest Resp: Effort & Inspection: normal respiratory effort and able to speak in complete sentences Auscultation: clear to auscultation bilaterally Cardio: Rate: regular rate Heart sounds: S1 normal heart sound present and S2 normal heart sound present GI: Inspection: Yes normal to inspection Skin: General skin exam: no rashes or lesions noted Wounds: no wounds Neuro: General: oriented to person, oriented to place, oriented to time and CN's II-XI intact bilaterally Extrem: General: Yes normal to inspection, Yes full ROM and Yes no clubbing, cyanosis or edema Psych: Appearance: grossly normal and well kempt Speech and movement: Normal speech and movement present Affect: normal affect DS: Data Data Completed and Pending Pending studies at discharge: Pending at discharge 04/20/25 09:33 Surgical [PTH] Routine Labs on day of discharge: Laboratory Results - last 24 hr 04/21/25 04:47 WBC 7.5 RBC 3.75 L D Hgb 11.5 L Hct 32.3 L MCV 86.1 MCH 30.7 MCHC 35.6 RDW 12.8 Plt Count 180 MPV 8.9 L Immature Gran % (Auto) 0.1 Neut % (Auto) 73.7 H Lymph % (Auto) 12.3 L [place] % (Auto) 11.3 H Eos % (Auto) 1.9 Baso % (Auto) 0.7 Lymph # (Auto) 0.9 L [place] # (Auto) 0.9 Eos # (Auto) 0.1 Baso # (Auto) 0.1 Abs Immat Gran (auto) 0.01 Absolute Neuts (auto) 5.5 Absolute Nucleated RBC 0.000 Nucleated RBC % (auto) 0.0 Sodium 135 Potassium 3.4 Chloride 101 Carbon Dioxide 25 Anion Gap 12 BUN 7 L Creatinine 0.59 Estim Creat Clear Calc 106.5 Estimated GFR > 60 Random Glucose 103 Calcium 8.2 L D Discharge Plan Discharge Anticipated Discharge Date/Time: 04/21/25 13:19 Patient Disposition: Home, Self-Care Discharge Diagnosis: Status post right carotid endarterectomy Referrals: Shabana Newton MD [Primary Care Provider, Medical] - 1 Week Discharge Medications: New oxycodone-acetaminophen [Endocet] 5-325 mg tablet 1 tab PO Q8H PRN (Reason: pain) Qty: 10 0RF Rx Instructions: Partial Fill upon patient request. Continued oxycodone 5 mg tablet 5 mg PO BID PRN (Reason: severe pain (scale score 7-10)) Qty: 14 0RF Rx Instructions: Partial Fill upon patient request. amlodipine 10 mg tablet 10 mg PO DAILY tamsulosin 0.4 mg capsule 0.4 mg PO DAILY sodium chloride 1,000 mg tablet,soluble 1,000 mg PO BID aspirin 81 mg Tablet,Delayed Release (Dr/Ec) 81 mg PO DAILY Qty: 90 0RF atorvastatin 40 mg tablet 80 mg PO DAILY multivitamin Tablet 1 tab PO DAILY ascorbic acid (vitamin C) [Vitamin C] 500 mg Tablet 500 mg PO DAILY valsartan 40 mg tablet 40 mg PO DAILY omeprazole 20 mg capsule,delayed release(DR/EC) 20 mg PO DAILY Discharge Orders: Discharge Order (Routine); Ordered 04/21/25 Ordered By: Steve Kumar Diet: Advance to usual diet Activity on Discharge: As tolerated Stand Alone Forms: Patient Portal Discharge page Print Language: Wolof Care Plan Goals: Follow carotid Health Concerns: Carotid artery disease Plan of Treatment: Surveillance follow-up carotid Assessment: Status post right carotid endarterectomy
== END 2025-04-21 14:00 | disposition home or self-care (01) | DRG 38 ==
LOC: HO.SSSA 06:18 → HO.ICU 11:35
PROVIDERS: Internal Medicine Critical Care Medicine; Nurse Practitioner; Admitting Provider Surgery Vascular Surgery; PCP Internal Medicine; Visit Provider Surgery Vascular Surgery
PROC: 03CK0ZZ Extirpation of Matter from Right Internal Carotid Artery, Open Approach (ICD-10-PCS; CPT 35301; principal; 2025-04-20 07:30)
DX: I65.21 Occlusion and stenosis of right carotid artery (principal); E22.2 Syndrome of inappropriate secretion of antidiuretic hormone; I25.10 Atherosclerotic heart disease of native coronary artery without angina pectoris; E78.5 Hyperlipidemia, unspecified; Z86.73 Personal history of transient ischemic attack (TIA), and cerebral infarction without residual deficits; Z79.82 Long term (current) use of aspirin; Z79.899 Other long term (current) drug therapy
CPT/HCPCS: 36415; 80048; 80053; 83935; 84300; 85025; 85027; 85610; 85730; 86850; 86900; 86901; 88304; 88311; A4649; C1768; J1171; J1644; J2003; J2250; J2270; J2305; J2371; J2405; J2598; J2704; J2795; J3010; J3374; J7120

== ENCOUNTER → 2025-04-20 06:08 | Outpatient (BNV) | payer MEDICARE, SELFPAY | PROVIDERS: Admitting Provider Surgery Vascular Surgery; PCP Internal Medicine; Visit Provider Surgery Vascular Surgery | DX: I65.21 Occlusion and stenosis of right carotid artery (principal) | CPT/HCPCS: 35301; 99239 ==

== ENCOUNTER → 2025-04-20 06:08 | Outpatient (BNV) | payer MEDICARE, SELFPAY | PROVIDERS: Admitting Provider Surgery Vascular Surgery; PCP Internal Medicine; Visit Provider Internal Medicine Critical Care Medicine | DX: I10 Essential (primary) hypertension (principal); I65.21 Occlusion and stenosis of right carotid artery; I63.9 Cerebral infarction, unspecified; E78.5 Hyperlipidemia, unspecified | CPT/HCPCS: 99223; 99239 ==

== ENCOUNTER 2025-04-28 10:13 | Outpatient (AMB) | payer MEDICARE, SELFPAY ==
--- NOTE | 2025-04-28 10:14 | A.OFFVIS_ITS ---
Vital Signs 04/28/25 10:16 Height 5 ft 8 in Intake Visit Reasons: Add-On sudden swelling s/p CEA Intake Note: Right CEA 04/20/25, woke up w/ new swelling over incision. Pt States no other issues, no drainage, just some grogginess since surgery Immigration Inspector Required: No Accompanied by: Self / Same As Patient Allergies daptomycin Allergy (Verified 04/28/25 10:18) Unknown lisinopril Allergy (Verified 04/28/25 10:18) Nausea Penicillins Adverse Reaction (Verified 04/28/25 10:18) swollen HPI HPI Add-On sudden swelling s/p CEA: Details: The patient is a 75-year-old male presenting for a follow-up visit regarding his carotid disease after undergoing a right carotid endarterectomy on 04/20/2025. He reports that upon waking this morning, the surgical site was swollen and sensitive. He notes the swelling has become a little smaller since he first noticed it. He also reports some numbness in the area. There was no bleeding. Tolerating a regular diet. Appears to be doing somewhat better since this morning. [facility] Medical History CVA (cerebral vascular accident) Dyspnea on exertion Osteoarthritis Erectile dysfunction Hypercholesteremia Diskitis Tubular adenoma SIAD (syndrome of inappropriate antidiuresis) Thoracic aortic aneurysm Constipation CAD (coronary artery disease) History of rib fracture Hard of hearing History of MRSA infection Back pain GERD (gastroesophageal reflux disease) Weakness Habitual snoring High cholesterol Hypertension Surgical History History of back surgery History of esophagogastroduodenoscopy (EGD) Hx of tonsillectomy History of total right knee replacement (~2018) Hx of cataract extraction H/O colonoscopy Knee joint replacement status Family History Mother Heart failure Heart attack Father Acute anxiety Depression Social History Household Members: Spouse Housing: House Are you a primary caregivers non medical to a significant other at home: No Do you presently have visiting nurse or other home services: No Alcohol intake: current Alcohol intake frequency: 3 or more drinks per day Alcohol type: beer Patient Tobacco Use Status: Former Tobacco user Advance Directives Date on File: 02/24/25 service: No Current occupational status: 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 Review of Systems Const All systems reviewed & are unremarkable except as noted in HPI and below Reports no additional complaints ENT Reports Normal hearing present Card Denies chest pain, Denies chest pain at rest, Denies chest pain with activity and Denies pedal edema Resp Denies cough GI Denies abdominal pain Musc Denies abnormal gait, Denies muscle cramps and Denies radiating pain into limb Skin/Breast Denies skin ulcer and Denies wounds Neuro Reports Normal hearing present and Denies abnormal gait Psych Reports no additional complaints Physical Exam Const General: cooperative, healthy appearing and comfortable Orientation/consciousness: oriented to person, oriented to place and oriented to time HEENT Head: Yes normal to inspection Neck Neck: Yes normal visual inspection Carotids: no bruits Chest Chest palpation & inspection: normal inspection of the chest Resp Effort & Inspection: normal respiratory effort and able to speak in complete sentences Auscultation: clear to auscultation bilaterally, no crackles, no rales, no rhonchi and no wheezes Cardio Rate: regular rate Rhythm: regular rhythm Heart sounds: S1 normal heart sound present and S2 normal heart sound present Bruits: no carotid bruits Peripheral pulses: Peripheral pulses 2+ throughout GI Inspection: Yes normal to inspection Skin Other: Right neck incision healing well. Wounds: no wounds Hair: normal Neuro General: oriented to person, oriented to place and oriented to time Cranial nerves: Yes CN's II-XII intact bilaterally and Yes Normal hearing present Cognition (Neuro): normal cognition Motor exam (neuro): 5/5 motor strength present throughout Extrem Other: venous exam: No significant superficial varicosities or spider telangiectasias, minimal edema General: No clubbing, No cyanosis and No edema Psych Appearance: grossly normal Mental Status: mental status grossly normal Speech and movement: Normal speech and movement present Assessment & Plan Assessment & Plan (1) Bilateral carotid artery stenosis: Comment: 04/20/2025 right carotid endarterectomy Code(s): I65.23 - Occlusion and stenosis of bilateral carotid arteries Category: Medical Plan: I examined the patient following his right carotid endarterectomy and noted his new onset swelling. I informed him that the surgical site looks good, with no evidence of infection, and that the tenderness is due to the underlying muscle. I provided reassurance that the swelling and numbness are normal parts of the healing process. I explained the healing timeline, noting that the incision will flatten over a couple of weeks and feel like normal skin in about six months. I instructed him to shower normally and to stop using a bandage. We will schedule him for routine three-month carotid ultrasound surveillance. Thank you for allowing us to assist in his care. If there are any questions or concerns please do not hesitate to contact us. Orders: Orders US carotid duplex BI 3 Months I65.23 - Occlusion and stenosis of bilateral carotid arteries Coding Level of Care Code Est Pt Level 4 (80725) Diagnoses Bilateral carotid artery stenosis I65.23
== END 2025-04-28 10:41 | disposition home or self-care (01) ==
LOC: HO.HVS 10:14
PROVIDERS: PCP Internal Medicine; Visit Provider Surgery Vascular Surgery
DX: I65.23 Occlusion and stenosis of bilateral carotid arteries (principal)
CPT/HCPCS: 99024

== ENCOUNTER → 2025-04-28 10:13 | Outpatient (BNVA) | payer MEDICARE, SELFPAY | PROVIDERS: PCP Internal Medicine; Visit Provider Surgery Vascular Surgery | DX: I65.23 Occlusion and stenosis of bilateral carotid arteries (principal) | CPT/HCPCS: 99212 ==